=== PATIENT | male | born 1975 | race African-American/Black ===

== ENCOUNTER 2019-04-11 10:46 | Inpatient (IN) | payer MEDICARE ==
[~2019-04-11] VITALS: Ht 165.1 cm; Wt 55.9 kg
[2019-04-11 10:52] VITALS: BP 110/70
--- NOTE | 2019-04-11 10:55 | NUR ---
ED Nurse Note: Patient arrived to ED from SNF by EMS. Per EMS, the staff at the facility stated that the pt had a fever so they called so that he could be taken to the ED. On arrival, patient was on 4L NC, AxO x 0, non-verbal. Patient taken off of NC, O2 sat 94% on room air. Patient will make eye contact if his name is called. Rectal temp 101.3, swabs obtained, skin is intact. Patient has a g-tube. Verbal order from Dr. Dean to place Garcia catheter. Patient suctioned by RT. Blood, swabs, urine, and sputum sent to lab. Patient on playground monitor, VSS, bed in lowest position.
[2019-04-11 11:12] LABS: EOSINOPHILS % (AUTO) 2.6 % (0.0-3.0); HEMATOCRIT 37.9 % (42.0-52.0); HEMOGLOBIN 13.4 G/DL (14.2-18.0); LYMPHOCYTES % (AUTO) 7.2 % (20.0-45.0); MEAN CORPUSCULAR VOLUME 82 FL (80-99); MONOCYTES % (AUTO) 6.4 % (1.0-10.0); NEUTROPHILS % (AUTO) 82.8 % (45.0-75.0); PLATELET COUNT 323 K/UL (150-450); RED BLOOD COUNT 4.61 M/UL (4.70-6.10); WHITE BLOOD COUNT 16.5 K/UL (4.8-10.8)
[2019-04-11 11:29] LABS: ANION GAP 7 mmol/L (5-15); BLOOD UREA NITROGEN 14 mg/dL (7-18); CARBON DIOXIDE 30 MMOL/L (21-32); CHLORIDE 105 MMOL/L (98-107); CREATININE 0.7 MG/DL (0.55-1.30); POTASSIUM 3.8 MMOL/L (3.5-5.1); SODIUM 142 MMOL/L (136-145)
[2019-04-11 11:41] LABS: ALANINE AMINOTRANSFERASE 25 U/L (12-78); ALBUMIN 2.7 G/DL (3.4-5.0); ALBUMIN/GLOBULIN RATIO 0.6 (1.0-2.7); ALKALINE PHOSPHATASE 63 U/L (46-116); ASPARTATE AMINO TRANSFERASE 20 U/L (15-37); CKMB 0.9 NG/ML (0.0-3.6); CREATINE KINASE 93 U/L (26-308); PHOSPHORUS 3.7 MG/DL (2.5-4.9)
[2019-04-11 11:41] LABS: BILIRUBIN, URINE NEGATIVE (NEGATIVE); GLUCOSE, URINE (UA) NEGATIVE (NEGATIVE); KETONES,URINE NEGATIVE (NEGATIVE); LEUKOCYTE ESTERASE ,URINE NEGATIVE (NEGATIVE); NITRITE,URINE NEGATIVE (NEGATIVE); PH,URINE 7 (4.5-8.0); PROTEIN,URINE 2+ (NEGATIVE); UROBILINOGEN,URINE 1 MG/DL (0.0-1.0)
[2019-04-11 11:42] LABS: APPEARANCE,URINE CLEAR; COLOR,URINE YELLOW
[2019-04-11] MEDS ORDERED: PROTONIX40 M2 GT (12:02)
[2019-04-11] MEDS ORDERED: MULTI-DELYN237 ML GT (12:02)
[2019-04-11] MEDS ORDERED: MYSOLINE50 M1 GT (12:02)
[2019-04-11] MEDS ORDERED: DONEPEZIL HCL10 M2 GT (12:02)
[2019-04-11] MEDS ORDERED: PROBIOTIC1 EAC5 GT (12:02)
[2019-04-11] MEDS ORDERED: VERAPAMIL HCL GT (12:02)
[2019-04-11] MEDS ORDERED: ZOFRAN4 M1 GT (12:02)
[2019-04-11] MEDS ORDERED: cefTRIAXone 1 GM in NS 55 ML IVPB ONE (12:45)
[2019-04-11] MEDS ORDERED: Azithromycin 500 MG in NS 275 ML IV ONE (12:45)
--- NOTE | 2019-04-11 13:03 | Emergency Room Report ---
History of Present Illness General Chief Complaint: General Complaint Source: Medical Record, EMS Present Illness HPI Patient presents to the emergency room with paramedics Patient was found to be febrile At the nursing facility also has cough and shortness of breath Patient himself has significant underlying dementia History of present illness is limited from him And this does limit the history of present illness in general There was no reports of vomiting or diarrhea patient was given Tylenol prior to arrival Allergies: Coded Allergies: No Known Allergies (Unverified , 04/11/19) Patient History Past Medical History: see triage record Reviewed Nursing Documentation: PMH: Agreed; PSxH: Agreed Nursing Documentation-PMH Hx Hypertension: Yes Hx Neurological Problems: Yes - epilepsy, alzheimer's, dementia Hx Cerebrovascular Accident: Yes - cerebellar ataxia Review of Systems All Other Systems: negative except mentioned in HPI Physical Exam Vital Signs Date Time Temp Pulse Resp B/P (MAP) Pulse Ox O2 Delivery O2 Flow Rate FiO2 04/11/19 10:47 101.1 112 24 110/70 (83) 95 Nasal Cannula 4.0 Sp02 EP Interpretation: reviewed, normal General Appearance: mild distress - Tachypneic Head: normocephalic, atraumatic Eyes: bilateral eye PERRL, bilateral eye EOMI ENT: dry mucus membranes Neck: supple Respiratory: crackles - Bilaterally with fine wheezing Cardiovascular #1: regular rate, rhythm, no edema Gastrointestinal: non tender, soft - Feeding tube in place Genitourinary: no CVA tenderness Musculoskeletal: other - Moves both upper extremities without focal deficit Neurologic: other - Responsive to verbal and physical stimuli Skin: no rash Lymphatic: no adenopathy Medical Decision Making Diagnostic Impression: Primary Impression: Sepsis Additional Impression: Pneumonia ER Course Patient is a fairly complex patient with multiple differential to consideration including but not limited to cardiac cardiopulmonary and vascular emergencies Infectious process and sepsis also entertained Patient has respiratory toilet performed Patient's x-ray does reveal evidence of infiltrate further antibiotics and hydration performed and patient admitted for further care Labs Test 04/11/19 10:50 04/11/19 11:15 White Blood Count 16.5 K/UL (4.8-10.8) Red Blood Count 4.61 M/UL (4.70-6.10) Hemoglobin 13.4 G/DL (14.2-18.0) Hematocrit 37.9 % (42.0-52.0) Mean Corpuscular Volume 82 FL (80-99) Mean Corpuscular Hemoglobin 29.1 PG (27.0-31.0) Mean Corpuscular Hemoglobin Concent 35.3 G/DL (32.0-36.0) Red Cell Distribution Width 17.0 % (11.6-14.8) Platelet Count 323 K/UL (150-450) Mean Platelet Volume 6.1 FL (6.5-10.1) Neutrophils (%) (Auto) 82.8 % (45.0-75.0) Lymphocytes (%) (Auto) 7.2 % (20.0-45.0) Monocytes (%) (Auto) 6.4 % (1.0-10.0) Eosinophils (%) (Auto) 2.6 % (0.0-3.0) Basophils (%) (Auto) 1.0 % (0.0-2.0) Sodium Level 142 MMOL/L (136-145) Potassium Level 3.8 MMOL/L (3.5-5.1) Chloride Level 105 MMOL/L (98-107) Carbon Dioxide Level 30 MMOL/L (21-32) Anion Gap 7 mmol/L (5-15) Blood Urea Nitrogen 14 mg/dL (7-18) Creatinine 0.7 MG/DL (0.55-1.30) Estimat Glomerular Filtration Rate > 60 mL/min (>60) Glucose Level 101 MG/DL (74-106) Lactic Acid Level 0.70 mmol/L (0.4-2.0) Calcium Level 9.0 MG/DL (8.5-10.1) Phosphorus Level 3.7 MG/DL (2.5-4.9) Magnesium Level 1.8 MG/DL (1.8-2.4) Total Bilirubin 1.0 MG/DL (0.2-1.0) Aspartate Amino Transf (AST/SGOT) 20 U/L (15-37) Alanine Aminotransferase (ALT/SGPT) 25 U/L (12-78) Alkaline Phosphatase 63 U/L (46-116) Total Creatine Kinase 93 U/L (26-308) Creatine Kinase MB 0.9 NG/ML (0.0-3.6) Creatine Kinase MB Relative Index 0.9 Troponin I 0.000 ng/mL (0.000-0.056) Pro-B-Type Natriuretic Peptide 46 pg/mL (0-125) Total Protein 7.6 G/DL (6.4-8.2) Albumin 2.7 G/DL (3.4-5.0) Globulin 4.9 g/dL Albumin/Globulin Ratio 0.6 (1.0-2.7) Lipase 103 U/L (73-393) Urine Color Yellow Urine Appearance Clear Urine pH 7 (4.5-8.0) Urine Specific [place] 1.005 (1.005-1.035) Urine Protein 2+ (NEGATIVE) Urine Glucose (UA) Negative (NEGATIVE) Urine Ketones Negative (NEGATIVE) Urine Blood 3+ (NEGATIVE) Urine Nitrite Negative (NEGATIVE) Urine Bilirubin Negative (NEGATIVE) Urine Urobilinogen 1 MG/DL (0.0-1.0) Urine Leukocyte Esterase Negative (NEGATIVE) Urine RBC 10-15 /HPF (0 - 0) Urine WBC 0-2 /HPF (0 - 0) Urine Squamous Epithelial Cells None /LPF (NONE/OCC) Urine Bacteria None /HPF (NONE) Rhythm Strip Diag. Results EP Interpretation: yes Rate: 78 Rhythm: NSR, no PVC's, no ectopy Chest X-Ray Diagnostic Results Chest X-Ray Diagnostic Results : Chest X-Ray Ordered: Yes # of Views/Limited/Complete: 1 View Indication: Shortness of Breath EP Interpretation: Yes Interpretation: no effusion, no pneumothorax, other - Left lower lobe infiltrate Impression: Other - Left lower lobe infiltrate Electronically Signed by: Kenn Dean DO Last Vital Signs Date Time Temp Pulse Resp B/P (MAP) Pulse Ox O2 Delivery O2 Flow Rate FiO2 04/11/19 10:52 101.1 101 22 110/70 95 Room Air 04/11/19 10:47 4.0 Status: improved Disposition: ADMITTED INPATIENT Condition: Serious Referrals: Marito Ortega DO (PCP) Kenn Dean DO Apr 11, 2019 13:03
[2019-04-11 13:10] VITALS: BP 108/74
--- NOTE | 2019-04-11 13:40 | NUR ---
ED Nurse Note: Report given to Christina WITT on Telemetry.
--- NOTE | 2019-04-11 13:46 | Diagnostic Imaging Report ---
Indication: Cough, chest pain Technique: One view of the chest Comparison: none Findings: There is some atelectasis at the left lung base. There may be some consolidation as well. There is central bronchial wall thickening. Lungs and pleural spaces are otherwise clear. Heart size is normal. Impression: Left basilar atelectasis and possible consolidation
--- NOTE | 2019-04-11 14:00 | NUR ---
NURSE NOTES: PT,admitted to tele. Tele monitor was attached to pt. Pt came in, in stable condition tachycardic. V/s bp 131/94, O2 95 , R20 T98.0 HR 115. pt has 2 Iv's L AC is patent R AC is difficult to flush. Pt has a Gtube. Pt has a key 16 fringe per doctor's order. Pt skin is intact but pt is very skinny so all bony areas on his body were padded for protection. Belonging are at bedside. Will continue to monitor pt. Call light within reach and bed is locked and in lowest position. Side rails are padded.
--- NOTE | 2019-04-11 16:23 | Consultation ---
History of Present Illness General Date patient seen: Apr 11, 2019 Chief Complaint: General Complaint Present Illness HPI 43 y/o M with hx of HTN, dysphagia s/p GT, cerebellar ataxia, seizure disorder, Alzheimer's dementia, SNF resident presented to ED on 04/11 with fever. In ED T 101.3. Allergies: Coded Allergies: No Known Allergies (Unverified , 04/11/19) Medication History Scheduled Donepezil Hcl* (Donepezil Hcl*), 10 MG GT DAILY, (Reported) Lactobacillus Combo No.11 (Probiotic), 1 EACH GT DAILY, (Reported) Multivitamin Liquid* (Multi-Delyn*), 5 ML GT DAILY, (Reported) Pantoprazole Sodium (Protonix), 40 MG GT DAILY, (Reported) Primidone (Mysoline), 100 MG GT QHS, (Reported) Verapamil Hcl (Verapamil Hcl), 20 MG GT TID, (Reported) Scheduled PRN Ondansetron (Zofran), 4 MG GT Q6H PRN for Nausea & Vomiting, (Reported) Patient History Healthcare decision maker Resuscitation status Advanced Directive on File Patient History Narrative Pmhx: as above Fhx: non contributory Shx: reviewed Review of Systems ROS Narrative unable to obtain Physical Exam Last 24 Hour Vital Signs Date Time Temp Pulse Resp B/P (MAP) Pulse Ox O2 Delivery O2 Flow Rate FiO2 04/11/19 13:10 101.1 98 21 108/74 96 Room Air 04/11/19 10:52 101.3 101 22 110/70 95 Room Air 04/11/19 10:52 101 22 Room Air 04/11/19 10:47 101.1 112 24 110/70 (83) 95 Nasal Cannula 4.0 Laboratory Tests Test 04/11/19 10:50 04/11/19 11:15 White Blood Count 16.5 K/UL (4.8-10.8) H Red Blood Count 4.61 M/UL (4.70-6.10) L Hemoglobin 13.4 G/DL (14.2-18.0) L Hematocrit 37.9 % (42.0-52.0) L Mean Corpuscular Volume 82 FL (80-99) Mean Corpuscular Hemoglobin 29.1 PG (27.0-31.0) Mean Corpuscular Hemoglobin Concent 35.3 G/DL (32.0-36.0) Red Cell Distribution Width 17.0 % (11.6-14.8) H Platelet Count 323 K/UL (150-450) Mean Platelet Volume 6.1 FL (6.5-10.1) L Neutrophils (%) (Auto) 82.8 % (45.0-75.0) H Lymphocytes (%) (Auto) 7.2 % (20.0-45.0) L Monocytes (%) (Auto) 6.4 % (1.0-10.0) Eosinophils (%) (Auto) 2.6 % (0.0-3.0) Basophils (%) (Auto) 1.0 % (0.0-2.0) Sodium Level 142 MMOL/L (136-145) Potassium Level 3.8 MMOL/L (3.5-5.1) Chloride Level 105 MMOL/L (98-107) Carbon Dioxide Level 30 MMOL/L (21-32) Anion Gap 7 mmol/L (5-15) Blood Urea Nitrogen 14 mg/dL (7-18) Creatinine 0.7 MG/DL (0.55-1.30) Estimat Glomerular Filtration Rate > 60 mL/min (>60) Glucose Level 101 MG/DL (74-106) Lactic Acid Level 0.70 mmol/L (0.4-2.0) Calcium Level 9.0 MG/DL (8.5-10.1) Phosphorus Level 3.7 MG/DL (2.5-4.9) Magnesium Level 1.8 MG/DL (1.8-2.4) Total Bilirubin 1.0 MG/DL (0.2-1.0) Aspartate Amino Transf (AST/SGOT) 20 U/L (15-37) Alanine Aminotransferase (ALT/SGPT) 25 U/L (12-78) Alkaline Phosphatase 63 U/L (46-116) Total Creatine Kinase 93 U/L (26-308) Creatine Kinase MB 0.9 NG/ML (0.0-3.6) Creatine Kinase MB Relative Index 0.9 Troponin I 0.000 ng/mL (0.000-0.056) Pro-B-Type Natriuretic Peptide 46 pg/mL (0-125) Total Protein 7.6 G/DL (6.4-8.2) Albumin 2.7 G/DL (3.4-5.0) L Globulin 4.9 g/dL Albumin/Globulin Ratio 0.6 (1.0-2.7) L Lipase 103 U/L (73-393) Urine Color Yellow Urine Appearance Clear Urine pH 7 (4.5-8.0) Urine Specific [place] 1.005 (1.005-1.035) Urine Protein 2+ (NEGATIVE) H Urine Glucose (UA) Negative (NEGATIVE) Urine Ketones Negative (NEGATIVE) Urine Blood 3+ (NEGATIVE) H Urine Nitrite Negative (NEGATIVE) Urine Bilirubin Negative (NEGATIVE) Urine Urobilinogen 1 MG/DL (0.0-1.0) H Urine Leukocyte Esterase Negative (NEGATIVE) Urine RBC 10-15 /HPF (0 - 0) H Urine WBC 0-2 /HPF (0 - 0) Urine Squamous Epithelial Cells None /LPF (NONE/OCC) Urine Bacteria None /HPF (NONE) Microbiology Date/Time Source Procedure Growth Status 04/11/19 10:50 Rectum Received Height (Feet): 5 Height (Inches): 7.00 Weight (Pounds): 140 Assessment/Plan Assessment/Plan: Abx: Ceftriaxone x1 04/11 Azithromycin x1 04/11 Assessment: Sepsis PNA -CXR: Left basilar atelectasis and possible consolidation -u/a neg Fever Leukocytosis HTN dysphagia s/p GT cerebellar ataxia seizure disorder Alzheimer's dementia SNF resident Plan: -Start empiric IV Vancomycin and Cefepime #1 -Continue Azithromycin #1 -f/u cx -Monitor CBC/CMP, temperatures -GT care -aspiration precautions Thank you for consulting [facility]. Will continue to follow along with you. Discussed with EDUAR. Shirley Cadena M.D. Apr 11, 2019 16:23
--- NOTE | 2019-04-11 17:52 | NUR ---
NURSE NOTES: notified Dr. Sauer pt is tachycardic 130's 145's. Doctor ordered Ns 500m bolus and echocardiogram in the morning.
[2019-04-11] MEDS: Cefepime HCl 1 GM in D5W 55 ML IVPB SCH (18:35)
--- NOTE | 2019-04-11 19:20 | NUR ---
NURSE NOTES: Received report form EDUAR Vasquez. Patient is awake, nonverbal, responsive to verbal and tactile stimuli. No signs of acute distress noted. Checked IV site and flushed. No erythema, bleeding, or infiltration noted. G tube with no residual volume. Padded siderails for seizure precaution. Bed at lowest position, brakes on, siderailsx3. Call light within reach. Will continue to monitor. Addendum: 04/12/19 at 0333 by Helen Garcia RN On key catheter draining well to gravity.
[2019-04-11 20:00] VITALS: BP 136/96
[2019-04-11] MEDS ORDERED: Vancomycin 1.25gm/D5W 275ml IVPB SCH ×2 (20:00)
--- NOTE | 2019-04-11 20:30 | NUR ---
NURSE NOTES: Patient is SVT on the monitor, 150bpm. Vital signs taken T=99.1, PM=860uci, RR=22, JB=449/96, O2 sat=95%. No signs of acute distress. No seizures noted. Per Dr. Sauer, no new orders at this time.
[2019-04-11] MEDS: Vancomycin 1.25gm/NS Premix 275 ML IVPB SCH (20:34)
--- NOTE | 2019-04-11 20:36 | NUR ---
HAND-OFF: Report given to Helen/EDUAR, pt in stable condition, SR tachy.
--- NOTE | 2019-04-11 21:30 | NUR ---
NURSE NOTES: Paged Dr. Ortega for patient's tube feeding. Awaiting for callback.
--- NOTE | 2019-04-11 21:30 | NUR ---
NURSE NOTES: Patient's HR 154bpm, SVT on the monitor. Spoke with Dr. Sauer regarding patient's condition, with new order Verapamil 20mg Q8 hour. Noted and carried out.
--- NOTE | 2019-04-11 21:31 | History and Physical Report ---
DATE OF ADMISSION: 04/11/2019 CONSULTANTS: 1. Carlos Sauer M.D. 2. Lonnie Dinero M.D. 3. Osbaldo Bird M.D. 4. Arley Wick M.D. CHIEF COMPLAINT: Confusion, shortness of breath, weakness, pneumonia, and sepsis. BRIEF HISTORY: This is a 43-year-old male from [facility], presented with the above-mentioned diagnoses, admitted to telemetry for further care. Currently, confused in bed, not talking much. REVIEW OF SYSTEMS: Unavailable. PAST MEDICAL HISTORY: Includes ataxia, Alzheimer's, sickle cell, seizure, weakness, anemia, and cachexia. PAST SURGICAL HISTORY: G-tube. MEDICATIONS: Include ceftriaxone, azithromycin, and Tylenol. ALLERGIES: Denies. SOCIAL HISTORY: Unable to obtain secondary to the patient's condition. OBJECTIVE: GENERAL: Calm in bed, lethargic, confused, and nonverbal. VITAL SIGNS: Temperature 101, pulse 98, respirations 21, and blood pressure 108/74. CARDIOVASCULAR: No murmurs. LUNGS: Poor air exchange. ABDOMEN: Bowel sounds distant. EXTREMITIES: No cyanosis, clubbing, or edema. NEUROLOGIC: The patient is flaccid in bed, not following directions. LABORATORY AND DIAGNOSTIC DATA: Labs at this time show white count 16, H and H are 13 and 37, and platelets 323,000. BMP is normal except for albumin 2.7. Urinalysis, 3+ blood and 2+ protein. ASSESSMENT: 1. Pneumonia. 2. Sepsis. 3. Altered mental status. 4. Ataxia. 5. Alzheimer's. 6. Sickle cell. 7. Seizure. 8. Weakness. 9. Anemia. 10. Cachexia. PLAN: 1. O2 and pulmonary treatment. 2. Antibiotics per Infectious Disease. 3. Resume home medications. 4. IV fluids. 5. PT and dietary evaluation. 6. We will continue to follow this patient. 7. CBC and BMP in the morning. Marito Ortega D.O. DR: ELIZABETH JOB#: [id number] CC:
--- NOTE | 2019-04-11 21:50 | NUR ---
NURSE NOTES: Per Dr. Ortega, to continue G tube feeding from senior care. Noted and carried out.
[2019-04-11] MEDS ORDERED: Verapamil 80mg tab GT SCH (22:00)
--- NOTE | 2019-04-11 22:00 | NUR ---
NURSE NOTES: G tube feeding on Jevity 1.2 @ 45mls/hr and tolerating well.
--- NOTE | 2019-04-11 22:20 | NUR ---
NURSE NOTES: 15 mins after giving Verapamil 20mg, HR went down to [address] Sauer made aware.
[2019-04-11] MEDS: Acetaminophen 650mg/20.3ml GT PRN (23:25)
[2019-04-12] VITALS (7 sets, daily range): BP systolic 117–145; BP diastolic 77–98
[2019-04-12] MEDS: Cefepime HCl 1 GM in D5W 55 ML IVPB SCH ×2 (05:25→18:18)
[2019-04-12] MEDS: Acetaminophen 650mg/20.3ml GT PRN ×2 (05:37→20:20)
[2019-04-12] MEDS ORDERED: Verapamil 80mg tab GT SCH (06:00)
[2019-04-12 07:02] LABS: ANION GAP 7 mmol/L (5-15); BLOOD UREA NITROGEN 14 mg/dL (7-18); CALCIUM 9.1 MG/DL (8.5-10.1); CARBON DIOXIDE 28 MMOL/L (21-32); CHLORIDE 113 MMOL/L (98-107); CREATININE 0.7 MG/DL (0.55-1.30); POTASSIUM 3.6 MMOL/L (3.5-5.1); SODIUM 148 MMOL/L (136-145)
--- NOTE | 2019-04-12 07:20 | NUR ---
HAND-OFF: Report given to EDUAR Brito. Plan of care endorsed.
--- NOTE | 2019-04-12 07:20 | NUR ---
NURSE NOTES: Report received from EDUAR Cervantes. Pt. in RA. Non verbal. Spontaneous eye opening. Tube feeding site intact. Tube feeding running at @45cc/hr. IV flushed, SL. Patient noticed diaphoretic. Gown changed and bedsheet removed. Positioned for comfort. Bed on lowest position, side rails upx2, brakes engaged. Call light within easy reach.
[2019-04-12 07:50] LABS: BASOPHILS % (AUTO) 1.5 % (0.0-2.0); EOSINOPHILS % (AUTO) 0.2 % (0.0-3.0); HEMATOCRIT 35.7 % (42.0-52.0); HEMOGLOBIN 13.3 G/DL (14.2-18.0); LYMPHOCYTES % (AUTO) 10.7 % (20.0-45.0); MEAN CORPUSCULAR VOLUME 81 FL (80-99); MONOCYTES % (AUTO) 6.7 % (1.0-10.0); PLATELET COUNT 284 K/UL (150-450); RED BLOOD COUNT 4.43 M/UL (4.70-6.10); RED CELL DISTRIBUTION WIDTH 15.1 % (11.6-14.8); WHITE BLOOD COUNT 14.1 K/UL (4.8-10.8)
[2019-04-12] MEDS ORDERED: dilTIAZem HCl 25mg/5ml Inj IVP PRN (08:00)
[2019-04-12] MEDS: Vancomycin 1.25gm/NS Premix 275 ML IVPB SCH ×2 (08:48→20:04)
[2019-04-12] MEDS: Azithromycin 250mg tab ORAL SCH (08:48)
[2019-04-12] MEDS: Donepezil 10mg tab GT SCH (08:48)
[2019-04-12] MEDS: Lactobacillus-GG tablet GT SCH (08:48)
[2019-04-12] MEDS: Multivitamins W/Minerals 15 ML UDC GT SCH (08:49)
--- NOTE | 2019-04-12 10:16 | General Progress Note ---
Assessment/Plan Problem List: (1) Pneumonia ICD Codes: J18.9 - Pneumonia, unspecified organism SNOMED: 587481137 (2) Confusion ICD Codes: R41.0 - Disorientation, unspecified SNOMED: 592943227 (3) Sickle cell anemia ICD Codes: D57.1 - Sickle-cell disease without crisis SNOMED: 669723542 (4) Weak ICD Codes: R53.1 - Weakness SNOMED: 73771731 (5) Cachexia ICD Codes: R64 - Cachexia SNOMED: 557440580 (6) Sepsis ICD Codes: A41.9 - Sepsis, unspecified organism SNOMED: 88758139 Status: unchanged Assessment/Plan: pt diet abx psyc neuro eval cbc bmp am Subjective Constitutional: Reports: weakness Allergies: Coded Allergies: No Known Allergies (Unverified , 04/11/19) All Systems: reviewed and negative except above Subjective sleepy calm Objective Last 24 Hour Vital Signs Date Time Temp Pulse Resp B/P (MAP) Pulse Ox O2 Delivery O2 Flow Rate FiO2 04/12/19 08:00 125 04/12/19 08:00 98.8 118 21 139/81 (100) 96 04/12/19 06:07 97.9 04/12/19 05:37 109 145/98 04/12/19 04:00 97.9 117 22 145/98 (114) 98 04/12/19 04:00 109 04/12/19 00:00 98.2 136 23 125/89 (101) 93 04/12/19 00:00 130 04/11/19 21:50 138 136/96 04/11/19 21:00 Room Air 04/11/19 20:00 99.1 138 22 136/96 (109) 93 04/11/19 19:44 Room Air 04/11/19 16:00 126 04/11/19 13:50 101.2 99 19 124/73 94 04/11/19 13:10 101.1 98 21 108/74 96 Room Air 04/11/19 10:52 101.3 101 22 110/70 95 Room Air 04/11/19 10:52 101 22 Room Air 04/11/19 10:47 101.1 112 24 110/70 (83) 95 Nasal Cannula 4.0 Intake and Output 04/11/19 04/12/19 18:59 06:59 Intake Total 0 ml 446.10 ml Output Total 700 ml 1320 ml Balance -700 ml -873.90 ml Intake Oral 0 ml IV Total 446.10 ml Output Urine Total 700 ml 1320 ml # Bowel Movements 1 Laboratory Tests 04/11/19 10:50: White Blood Count 16.5H, Red Blood Count 4.61L, Hemoglobin 13.4L, Hematocrit 37.9L, Mean Corpuscular Volume 82, Mean Corpuscular Hemoglobin 29.1, Mean Corpuscular Hemoglobin Concent 35.3, Red Cell Distribution Width 17.0H, Platelet Count 323, Mean Platelet Volume 6.1L, Neutrophils (%) (Auto) 82.8H, Lymphocytes (%) (Auto) 7.2L, Monocytes (%) (Auto) 6.4, Eosinophils (%) (Auto) 2.6, Basophils (%) (Auto) 1.0, Sodium Level 142, Potassium Level 3.8, Chloride Level 105, Carbon Dioxide Level 30, Anion Gap 7, Blood Urea Nitrogen 14, Creatinine 0.7, Estimat Glomerular Filtration Rate > 60, Glucose Level 101, Lactic Acid Level 0.70, Calcium Level 9.0, Phosphorus Level 3.7, Magnesium Level 1.8, Total Bilirubin 1.0, Aspartate Amino Transf (AST/SGOT) 20, Alanine Aminotransferase (ALT/SGPT) 25, Alkaline Phosphatase 63, Total Creatine Kinase 93, Creatine Kinase MB 0.9, Creatine Kinase MB Relative Index 0.9, Troponin I 0.000, Pro-B-Type Natriuretic Peptide 46, Total Protein 7.6, Albumin 2.7L, Globulin 4.9, Albumin/Globulin Ratio 0.6L, Lipase 103 04/11/19 11:15: Urine Color Yellow, Urine Appearance Clear, Urine pH 7, Urine Specific [place] 1.005, Urine Protein 2+H, Urine Glucose (UA) Negative, Urine Ketones Negative, Urine Blood 3+H, Urine Nitrite Negative, Urine Bilirubin Negative, Urine Urobilinogen 1H, Urine Leukocyte Esterase Negative, Urine RBC 10-15H, Urine WBC 0-2, Urine Squamous Epithelial Cells None, Urine Bacteria None 04/12/19 05:56: White Blood Count 14.1H, Red Blood Count 4.43L, Hemoglobin 13.3L, Hematocrit 35.7L, Mean Corpuscular Volume 81, Mean Corpuscular Hemoglobin 29.9, Mean Corpuscular Hemoglobin Concent 37.1H, Red Cell Distribution Width 15.1H, Platelet Count 284, Mean Platelet Volume 6.3L, Neutrophils (%) (Auto) 81.0H, Lymphocytes (%) (Auto) 10.7L, Monocytes (%) (Auto) 6.7, Eosinophils (%) (Auto) 0.2, Basophils (%) (Auto) 1.5, Sodium Level 148H, Potassium Level 3.6, Chloride Level 113H, Carbon Dioxide Level 28, Anion Gap 7, Blood Urea Nitrogen 14, Creatinine 0.7, Estimat Glomerular Filtration Rate > 60, Glucose Level 128H, Calcium Level 9.1 Height (Feet): 5 Height (Inches): 7.00 Weight (Pounds): 103 General Appearance: lethargic EENT: normal ENT inspection Neck: normal alignment Cardiovascular: normal peripheral pulses, normal rate, regular rhythm Respiratory/Chest: chest wall non-tender, lungs clear, normal breath sounds Abdomen: normal bowel sounds, non tender, soft Extremities: normal inspection Edema: no edema noted Arm (L), no edema noted Arm (R), no edema noted Leg (L), no edema noted Leg (R), no edema noted Pedal (L), no edema noted Pedal (R), no edema noted Generalized Neurologic: motor weakness Skin: normal pigmentation, warm/dry Marito Ortega DO Apr 12, 2019 10:16
--- NOTE | 2019-04-12 10:20 | NUR ---
NURSE NOTES: Communicated with Dr. Sauer regarding pain medication. No orders at this time.
--- NOTE | 2019-04-12 10:30 | NUR ---
NURSE NOTES: Repositioned pt. for comfort. Noticed small skin tear on the buttock under the applied barrier and Optifoam dressing. Reinforced dressing, applied skin barrier and Optifoam.
--- NOTE | 2019-04-12 11:14 | Infectious Diseases Prog Note ---
Assessment/Plan Assessment/Plan Assessment: Sepsis PNA -CXR: Left basilar atelectasis and possible consolidation -sp cx p -influenza sc neg -u/a neg Fever; improving Leukocytosis; improving HTN dysphagia s/p GT cerebellar ataxia seizure disorder Alzheimer's dementia SNF resident Plan: -Cotninue empiric IV Vancomycin and Cefepime #2 -Continue Azithromycin #2 -04/11 SP Ceftriaxone x1 -f/u cx -Monitor CBC/CMP, temperatures -GT care -aspiration precautions Thank you for consulting [facility]. Will continue to follow along with you. Discussed with RN. Subjective Allergies: Coded Allergies: No Known Allergies (Unverified , 04/11/19) Subjective afebrile in ~24hrs wbc improving influenza neg Objective Vital Signs Last 24 Hour Vital Signs Date Time Temp Pulse Resp B/P (MAP) Pulse Ox O2 Delivery O2 Flow Rate FiO2 04/12/19 09:00 Room Air 04/12/19 08:00 125 04/12/19 08:00 98.8 118 21 139/81 (100) 96 04/12/19 06:07 97.9 04/12/19 05:37 109 145/98 04/12/19 04:00 97.9 117 22 145/98 (114) 98 04/12/19 04:00 109 04/12/19 00:00 98.2 136 23 125/89 (101) 93 04/12/19 00:00 130 04/11/19 21:50 138 136/96 04/11/19 21:00 Room Air 04/11/19 20:00 99.1 138 22 136/96 (109) 93 04/11/19 19:44 Room Air 04/11/19 16:00 126 04/11/19 13:50 101.2 99 19 124/73 94 04/11/19 13:10 101.1 98 21 108/74 96 Room Air Height (Feet): 5 Height (Inches): 7.00 Weight (Pounds): 103 Objective GENERAL: Calm in bed, lethargic, confused, and nonverbal. VITAL SIGNS: Temperature 101, pulse 98, respirations 21, and blood pressure 108/74. CARDIOVASCULAR: No murmurs. LUNGS: Poor air exchange. ABDOMEN: Bowel sounds distant. EXTREMITIES: No cyanosis, clubbing, or edema. NEUROLOGIC: The patient is flaccid in bed, not following directions. Microbiology Date/Time Source Procedure Growth Status 04/11/19 04:04 Nasopharynx - Final Complete 04/11/19 04:04 Nasopharynx - Final Complete 04/11/19 10:50 Rectum Received Laboratory Tests Test 04/11/19 11:15 04/12/19 05:56 Urine Color Yellow Urine Appearance Clear Urine pH 7 (4.5-8.0) Urine Specific [place] 1.005 (1.005-1.035) Urine Protein 2+ (NEGATIVE) H Urine Glucose (UA) Negative (NEGATIVE) Urine Ketones Negative (NEGATIVE) Urine Blood 3+ (NEGATIVE) H Urine Nitrite Negative (NEGATIVE) Urine Bilirubin Negative (NEGATIVE) Urine Urobilinogen 1 MG/DL (0.0-1.0) H Urine Leukocyte Esterase Negative (NEGATIVE) Urine RBC 10-15 /HPF (0 - 0) H Urine WBC 0-2 /HPF (0 - 0) Urine Squamous Epithelial Cells None /LPF (NONE/OCC) Urine Bacteria None /HPF (NONE) White Blood Count 14.1 K/UL (4.8-10.8) H Red Blood Count 4.43 M/UL (4.70-6.10) L Hemoglobin 13.3 G/DL (14.2-18.0) L Hematocrit 35.7 % (42.0-52.0) L Mean Corpuscular Volume 81 FL (80-99) Mean Corpuscular Hemoglobin 29.9 PG (27.0-31.0) Mean Corpuscular Hemoglobin Concent 37.1 G/DL (32.0-36.0) H Red Cell Distribution Width 15.1 % (11.6-14.8) H Platelet Count 284 K/UL (150-450) Mean Platelet Volume 6.3 FL (6.5-10.1) L Neutrophils (%) (Auto) 81.0 % (45.0-75.0) H Lymphocytes (%) (Auto) 10.7 % (20.0-45.0) L Monocytes (%) (Auto) 6.7 % (1.0-10.0) Eosinophils (%) (Auto) 0.2 % (0.0-3.0) Basophils (%) (Auto) 1.5 % (0.0-2.0) Sodium Level 148 MMOL/L (136-145) H Potassium Level 3.6 MMOL/L (3.5-5.1) Chloride Level 113 MMOL/L (98-107) H Carbon Dioxide Level 28 MMOL/L (21-32) Anion Gap 7 mmol/L (5-15) Blood Urea Nitrogen 14 mg/dL (7-18) Creatinine 0.7 MG/DL (0.55-1.30) Estimat Glomerular Filtration Rate > 60 mL/min (>60) Glucose Level 128 MG/DL (74-106) H Calcium Level 9.1 MG/DL (8.5-10.1) Current Medications Medications (Trade) Dose Ordered Sig/Kory Route PRN Reason Start Time Stop Time Status Last Admin Dose Admin Acetaminophen (Tylenol) 650 mg Q6H PRN GT Mild Pain/Temp > 100.5 04/11/19 23:00 05/11/19 22:59 04/12/19 05:37 Azithromycin (Zithromax) 500 mg DAILY ORAL 04/12/19 09:00 04/19/19 08:59 04/12/19 08:48 Cefepime HCl 1 gm/ Dextrose 55 ml @ 110 mls/hr Q12H IVPB 04/11/19 18:00 04/18/19 17:59 04/12/19 05:25 Diltiazem HCl (Cardizem) 10 mg Q2H PRN IVP PULSE 04/12/19 08:00 05/12/19 07:59 Donepezil HCl (Aricept) 10 mg DAILY GT 04/12/19 09:00 05/12/19 08:59 04/12/19 08:48 Heparin Sodium (Porcine) (Heparin 5000 units/ml) 5,000 units EVERY 12 HOURS SUBQ 04/12/19 11:00 05/12/19 10:59 Lactobacillus Acidophilus (Culturelle) 1 tab DAILY GT 04/12/19 09:00 05/12/19 08:59 04/12/19 08:48 Lansoprazole (Prevacid) 30 mg DAILY GT 04/12/19 09:00 05/12/19 08:59 04/12/19 08:48 Multivitamins (Multivitamins W/ Minerals 15ml Liquid) 15 ml DAILY GT 04/12/19 09:00 05/12/19 08:59 04/12/19 08:49 Ondansetron HCl (Zofran) 4 mg Q6H PRN GT Nausea & Vomiting 04/12/19 01:45 05/12/19 01:44 Primidone (Mysoline) 100 mg QHS GT 04/12/19 21:00 05/12/19 20:59 Vancomycin HCl (Vanco rx to dose) 1 ea DAILY PRN MISC Per rx protocol 04/11/19 16:30 05/11/19 16:29 Vancomycin/Sodium Chloride 275 ml @ 183.33 mls/ hr Q12HR@0800,2000 IVPB 04/11/19 20:30 04/16/19 20:29 04/12/19 08:48 Verapamil HCl (Calan) 20 mg EVERY 8 HOURS GT 04/12/19 06:00 05/11/19 21:59 04/12/19 05:37 Shirley Cadena M.D. Apr 12, 2019 11:14
--- NOTE | 2019-04-12 11:24 | Consultation ---
History of Present Illness General Date patient seen: Apr 12, 2019 Chief Complaint: General Complaint Present Illness HPI 43 year old male with hx of hereditary spino-cerebellar ataxia, AD-Ray- Julio disease, bed bound, Gtube feeding, chronic tachycardia, essential hypertension presented to ER from custodial (at [place] since 03/24/19) with CC of fever. Pt is awake, can't talk, looks hyperalert and anxious, can't give any history. Allergies: Coded Allergies: No Known Allergies (Unverified , 04/11/19) Medication History Scheduled Donepezil Hcl* (Donepezil Hcl*), 10 MG GT DAILY, (Reported) Lactobacillus Combo No.11 (Probiotic), 1 EACH GT DAILY, (Reported) Multivitamin Liquid* (Multi-Delyn*), 5 ML GT DAILY, (Reported) Pantoprazole Sodium (Protonix), 40 MG GT DAILY, (Reported) Primidone (Mysoline), 100 MG GT QHS, (Reported) Verapamil Hcl (Verapamil Hcl), 20 MG GT TID, (Reported) Scheduled PRN Ondansetron (Zofran), 4 MG GT Q6H PRN for Nausea & Vomiting, (Reported) Patient History Healthcare decision maker Resuscitation status Advanced Directive on File Past Medical/Surgical History Past Medical/Surgical History: (1) CX-Oboxgwd-Untmin disease (2) Chronic tachycardia (3) Cavitary lung disease (4) Hereditary cerebellar ataxia (5) Feeding by G-tube (6) Epilepsy (7) Sickle cell anemia Review of Systems Genitourinary: Reports: no symptoms Psychiatric: Reports: no symptoms Neurological: Reports: no symptoms Endocrine: Reports: no symptoms Hematologic/Lymphatic: Reports: no symptoms All Other Systems: negative except mentioned in HPI Physical Exam General Appearance: cachetic, thin Lines, tubes and drains: peripheral HEENT: normocephalic, atraumatic Neck: non-tender, normal alignment Respiratory/Chest: chest wall non-tender, lungs clear Breasts: no masses Cardiovascular/Chest: normal peripheral pulses Abdomen: normal bowel sounds, non tender Extremities: normal range of motion, non-tender Skin Exam: normal pigmentation Last 24 Hour Vital Signs Date Time Temp Pulse Resp B/P (MAP) Pulse Ox O2 Delivery O2 Flow Rate FiO2 04/12/19 09:00 Room Air 04/12/19 08:00 125 04/12/19 08:00 98.8 118 21 139/81 (100) 96 04/12/19 06:07 97.9 04/12/19 05:37 109 145/98 04/12/19 04:00 97.9 117 22 145/98 (114) 98 04/12/19 04:00 109 04/12/19 00:00 98.2 136 23 125/89 (101) 93 04/12/19 00:00 130 04/11/19 21:50 138 136/96 04/11/19 21:00 Room Air 04/11/19 20:00 99.1 138 22 136/96 (109) 93 04/11/19 19:44 Room Air 04/11/19 16:00 126 04/11/19 13:50 101.2 99 19 124/73 94 04/11/19 13:10 101.1 98 21 108/74 96 Room Air Intake and Output 04/11/19 04/12/19 18:59 06:59 Intake Total 0 ml 446.10 ml Output Total 700 ml 1320 ml Balance -700 ml -873.90 ml Intake Oral 0 ml IV Total 446.10 ml Output Urine Total 700 ml 1320 ml # Bowel Movements 1 Laboratory Tests Test 04/11/19 11:15 04/12/19 05:56 Urine Color Yellow Urine Appearance Clear Urine pH 7 (4.5-8.0) Urine Specific [place] 1.005 (1.005-1.035) Urine Protein 2+ (NEGATIVE) H Urine Glucose (UA) Negative (NEGATIVE) Urine Ketones Negative (NEGATIVE) Urine Blood 3+ (NEGATIVE) H Urine Nitrite Negative (NEGATIVE) Urine Bilirubin Negative (NEGATIVE) Urine Urobilinogen 1 MG/DL (0.0-1.0) H Urine Leukocyte Esterase Negative (NEGATIVE) Urine RBC 10-15 /HPF (0 - 0) H Urine WBC 0-2 /HPF (0 - 0) Urine Squamous Epithelial Cells None /LPF (NONE/OCC) Urine Bacteria None /HPF (NONE) White Blood Count 14.1 K/UL (4.8-10.8) H Red Blood Count 4.43 M/UL (4.70-6.10) L Hemoglobin 13.3 G/DL (14.2-18.0) L Hematocrit 35.7 % (42.0-52.0) L Mean Corpuscular Volume 81 FL (80-99) Mean Corpuscular Hemoglobin 29.9 PG (27.0-31.0) Mean Corpuscular Hemoglobin Concent 37.1 G/DL (32.0-36.0) H Red Cell Distribution Width 15.1 % (11.6-14.8) H Platelet Count 284 K/UL (150-450) Mean Platelet Volume 6.3 FL (6.5-10.1) L Neutrophils (%) (Auto) 81.0 % (45.0-75.0) H Lymphocytes (%) (Auto) 10.7 % (20.0-45.0) L Monocytes (%) (Auto) 6.7 % (1.0-10.0) Eosinophils (%) (Auto) 0.2 % (0.0-3.0) Basophils (%) (Auto) 1.5 % (0.0-2.0) Sodium Level 148 MMOL/L (136-145) H Potassium Level 3.6 MMOL/L (3.5-5.1) Chloride Level 113 MMOL/L (98-107) H Carbon Dioxide Level 28 MMOL/L (21-32) Anion Gap 7 mmol/L (5-15) Blood Urea Nitrogen 14 mg/dL (7-18) Creatinine 0.7 MG/DL (0.55-1.30) Estimat Glomerular Filtration Rate > 60 mL/min (>60) Glucose Level 128 MG/DL (74-106) H Calcium Level 9.1 MG/DL (8.5-10.1) Height (Feet): 5 Height (Inches): 7.00 Weight (Pounds): 103 Medications Current Medications Medications (Trade) Dose Ordered Sig/Kory Route PRN Reason Start Time Stop Time Status Last Admin Dose Admin Acetaminophen (Tylenol) 650 mg Q6H PRN GT Mild Pain/Temp > 100.5 04/11/19 23:00 05/11/19 22:59 04/12/19 05:37 Azithromycin (Zithromax) 500 mg DAILY ORAL 04/12/19 09:00 04/19/19 08:59 04/12/19 08:48 Cefepime HCl 1 gm/ Dextrose 55 ml @ 110 mls/hr Q12H IVPB 04/11/19 18:00 04/18/19 17:59 04/12/19 05:25 Diltiazem HCl (Cardizem) 10 mg Q2H PRN IVP PULSE 04/12/19 08:00 05/12/19 07:59 Donepezil HCl (Aricept) 10 mg DAILY GT 04/12/19 09:00 05/12/19 08:59 04/12/19 08:48 Heparin Sodium (Porcine) (Heparin 5000 units/ml) 5,000 units EVERY 12 HOURS SUBQ 04/12/19 11:00 05/12/19 10:59 Lactobacillus Acidophilus (Culturelle) 1 tab DAILY GT 04/12/19 09:00 05/12/19 08:59 04/12/19 08:48 Lansoprazole (Prevacid) 30 mg DAILY GT 04/12/19 09:00 05/12/19 08:59 04/12/19 08:48 Multivitamins (Multivitamins W/ Minerals 15ml Liquid) 15 ml DAILY GT 04/12/19 09:00 05/12/19 08:59 04/12/19 08:49 Ondansetron HCl (Zofran) 4 mg Q6H PRN GT Nausea & Vomiting 04/12/19 01:45 05/12/19 01:44 Primidone (Mysoline) 100 mg QHS GT 04/12/19 21:00 05/12/19 20:59 Vancomycin HCl (Vanco rx to dose) 1 ea DAILY PRN MISC Per rx protocol 04/11/19 16:30 05/11/19 16:29 Vancomycin/Sodium Chloride 275 ml @ 183.33 mls/ hr Q12HR@0800,2000 IVPB 04/11/19 20:30 04/16/19 20:29 04/12/19 08:48 Verapamil HCl (Calan) 20 mg EVERY 8 HOURS GT 04/12/19 06:00 05/11/19 21:59 04/12/19 05:37 Assessment/Plan Problem List: (1) Sepsis ICD Codes: A41.9 - Sepsis, unspecified organism SNOMED: 54809455 (2) Nosocomial pneumonia ICD Codes: J18.9 - Pneumonia, unspecified organism; Y95 - Nosocomial condition SNOMED: 398236830 (3) Epilepsy ICD Codes: G40.909 - Epilepsy, unspecified, not intractable, without status epilepticus SNOMED: 57422323 (4) Hereditary cerebellar ataxia ICD Codes: G11.2 - Late-onset cerebellar ataxia SNOMED: 66375953 (5) Cavitary lung disease ICD Codes: J98.4 - Other disorders of lung SNOMED: 189588793 (6) Chronic tachycardia ICD Codes: R00.0 - Tachycardia, unspecified SNOMED: 8626334 (7) RI-Akwzeqj-Petzuw disease (8) Feeding by G-tube ICD Codes: Z93.1 - Gastrostomy status SNOMED: 022983512, 482111191, 428023944 Assessment/Plan: armirez cultures iv abx symptomatic treatment feeding by Gtube aspiration precaution Verapamil for chronic tachycardia, review echo to rule out cardiomyopathy sputum induction monitor heart rate prbc prn Hem< 8 dvt prophylaxis. Carlos Sauer MD Apr 12, 2019 11:24
[2019-04-12] MEDS: Heparin 5000 units/ml inj SUBQ SCH ×2 (12:02→21:39)
--- NOTE | 2019-04-12 12:44 | NUR ---
NURSE NOTES: Left a message to Dr. Cadena regarding gram positive test results.
--- NOTE | 2019-04-12 12:58 | NUR ---
RD ASSESSMENT & RECOMMENDATIONS SEE CARE ACTIVITY FOR COMPLETE ASSESSMENT DAILY ESTIMATED NEEDS: Needs based on Severely underweight/ 45kg 35-40 kcals/kg 7362-4753 total kcals 1.5-2.0 g protein/kg 67-90 g total protein 25-35 mL/kg 9070-7304 total fluid mLs NUTRITION DIAGNOSIS: * Increased kcal/prot needs R/T severely underweight status and wt loss as evidenced by pt ~67% IBW, BMI of 15.5, w/ severe generalized wasting, possible significant wt loss of 50lbs/33% in <8 months as per report. 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 CURRENT TF:Jevity 1.2 @ 45ml/hr x 24 hrs ENTERAL NUTRITION RECOMMENDATIONS: Jevity 1.2 @ 60ml/hr x 24 hrs to provide 1440ml, 1728kcal, 80g prot, 1162ml free water * Increase TF goal rate to 60ml/hr x 24 hrs -> advance 10ml q 4-6 hrs as tolerated to goal * HOB over 30 degrees * Without IVF, water flush of 100ml q 6 hrs ADDITIONAL RECOMMENDATIONS: * Calibrated bedscale wt for accurate CBW -> weekly wt monitoring given h/o wt loss, severely underweight * Monitor lytes daily, replete as needed * Monitor BGs, need for carb controlled TF
[2019-04-12] MEDS: Verapamil 80mg tab GT SCH ×2 (14:34→21:36)
[2019-04-12] MEDS: Thiamine HCl 500 MG in D5W 55 ML IVPB SCH ×2 (14:35→22:26)
--- NOTE | 2019-04-12 15:09 | Cardiology Report ---
APPROVED REPORT EXAM: Two-dimensional and M-mode echocardiogram with Doppler and color Doppler. INDICATION Tachycardia M-Mode DIMENSIONS IVSd0.7 (0.7-1.1cm)Left Atrium (MM)1.9 (1.6-4.0cm) LVDd3.1 (3.5-5.6cm)Aortic Root4.7 (2.0-3.7cm) PWd1.0 (0.7-1.1cm)Aortic Cusp Exc.1.9 (1.5-2.0cm) IVSs1.1 cm LVDs1.7 (2.5-4.0cm) PWs1.1 cm Normal left ventricular chamber size, systolic function and wall motion to extent visualized. Left ventricular ejection fraction estimated to be 55-60%. No pericardial effusion. Aortic valve calcification with abnormal cusp excursion . Aortic root dilatation. Mildly thickened mitral valve leaflets with normal excursion. Mild mitral annulus and aortic root calcification. Pulmonic valve not well visualized. Subcostal views not obtainble due to GI-tube. A color flow and spectral Doppler study was performed and revealed: Mitral diastolic velocities suggest reduced left ventricular relaxation c/w mild LV diastolic dysfunction (Grade I ). Trace mitral regurgitation. Trace tricuspid regurgitation. Tricuspid systolic velocities suggests peak right ventricular systolic pressure of 15mmHg.
--- NOTE | 2019-04-12 15:25 | Cardiology Report ---
APPROVED REPORT EKG Measurement Heart [id number] Normal sinus rhythm Normal ECG
--- NOTE | 2019-04-12 15:41 | NUR ---
P.T Note: P.T evaluation completed. Pt is alert ,non verbal , essentially not able to follow simple commands. Pt unable to engage in functional mobilities. Pt is dependent in all aspects of ADL/functional mobilities and self care tasks. Pt not a candidate for skilled P.T service as pt is already at baseline function. DC P.T service. Recommend DC to prior living arrangement for total care and comfort.
--- NOTE | 2019-04-12 16:27 | NUR ---
NURSE NOTES: Left a message to Dr. Sauer regarding pain medication. Waiting for a call back.
--- NOTE | 2019-04-12 16:45 | NUR ---
NURSE NOTES: Left a message to Dr. Wick regarding Patient's seizure history and no medication on board. Waiting for a call back.
[2019-04-12] MEDS: Morphine Sulfate 2mg/ml Inj(IV/IM USE ONLY) IVP PRN ×2 (17:17→21:30)
--- NOTE | 2019-04-12 17:57 | NUR ---
NURSE NOTES: Left a message to Dr. Ortega regarding seizures medication. Waiting for a call back.
--- NOTE | 2019-04-12 18:13 | NUR ---
NURSE NOTES: Called correction and talk to Don. Pt. doesn't take seizures medication, has HX of epilepsy.
--- NOTE | 2019-04-12 19:42 | NUR ---
HAND-OFF: Report given to EDUAR Giraldo. Plan of care endorsed.
--- NOTE | 2019-04-12 19:43 | NUR ---
NURSE NOTES: Received pt from EDUAR Brito. Pt is awake in bed in no acute distress. IV site intact and patent. Garcia catheter intact and draining. Gtube patent, no residual, feeding at goal of 60ml/hr. Bed locked in lowest position, bed alarm on, call light within reach. Seizure precautions implemented. HOB at 45 degrees, pt sacrum off loaded with pillows. Will continue with plan of care.
[2019-04-13] VITALS: BP 111/74
[2019-04-13] MEDS: Morphine Sulfate 2mg/ml Inj(IV/IM USE ONLY) IVP PRN ×2 (01:32→16:51)
--- NOTE | 2019-04-13 02:15 | Consultation ---
DATE OF CONSULTATION: 04/12/2019 NOTE: POOR AUDIO CONSULTING PHYSICIAN: Arley Wick M.D. CHIEF COMPLAINT: This is a 43-year-old man transferred from [facility] with a history of sickle cell disease secondary to hypertension, Ray Julio disease, epilepsy pneumonia, and sepsis. HISTORY OF PRESENT ILLNESS: The patient has a history of . He had a negative EEG encephalopathy" significant dysplasia. He also has a history of "Alzheimer's disease." He has got aspiration pneumonia and a cavitary lesion in the left lower lobe. He did have a CT scan, which show The patient is on donepezil 10 mg, verapamil 20 mg the patient's temperature is 103.2 degrees . I was asked to see the patient in terms of disease. He has no evidence of seizures. The patient on admission had a chest x-ray revealing atelectasis in the left lung base. Probable consolidation. No signs of bronchial wall thickening. His CBC platelet count is normal. White count is 16,500. Urinalysis revealed 0 to 2 wbc's, +3 protein, no bacteria. Mostly unremarkable. Chemistries is normal examination except for a low albumin of 2.7. The sodium today is . An echocardiogram done yesterday aortic valve confrontation, mild mitral annular calcification, left ventricular diastolic dysfunction, mitral and tricuspid regurgitation. The pulmonary pressure is normal. Right ventricular systolic pressure is 50. Rest is unremarkable. The patient is seen in the CCU today. Previously he was diagnosed to be with left basilar atelectasis with possible consolidation There is no known family history of neurologic disease. PAST MEDICAL HISTORY/PAST MEDICAL ILLNESSES: 1. Sickle cell disease, see above. 2. Ray-Julio disease, see above. 3. Probable aspiration pneumonia. 4. 5. History of seizure disorder with status epilepticus. 6. Dementia, etiology unclear. 7. Hypertension. MEDICATIONS: See above. SOCIAL HISTORY: The patient is totally disabled. REVIEW OF SYSTEMS: PHYSICAL EXAMINATION: GENERAL: The patient is a well developed, cachectic man, lying in bed. VITAL SIGNS: Blood pressure is 129/81, heart rate is , temperature is NECK: Carotid +2, no bruits. LUNGS: Breath sounds are decreased. I could not hear any rales and rhonchi. CARDIOVASCULAR: PMI was not felt. JVP not visualized. Heart tones were distant. ABDOMEN: Revealed a feeding tube. Bowel sounds decreased. No obvious tenderness or organomegaly. BACK: Not tested. EXTREMITIES: He has a pressure sore on his feet and shoulders. NEUROLOGIC EXAMINATION: MENTAL STATUS: He is stupurous, but opens to pain. midline commands. No spontaneous speech CRANIAL NERVE EXAMINATION: CRANIAL NERVE II: Could not be examined. CRANIAL NERVES III, IV, AND : The eyes appear to be in the midline. Extraocular motility could not be noted. CRANIAL NERVE V: Corneal sensation appeared to be intact. CRANIAL NERVE VII: Facial strength appeared to be symmetrical bilaterally. CRANIAL NERVES VII TO XII: Could not be examined. He bulldogged on the tongue depressor. MUSCLE EXAMINATION: He has significant diffuse muscular atrophy. There is some fasciculations in his right chest. no movement of his arms could be elicited. Testing for Babinski response is good. bilaterally pretty vigorously. Reflexes 0 in the upper and lower extremities. It is difficult to say whether he had upgoing and downgoing toes. SENSORY EXAMINATION: There was some response to deep pain on the bottom of the feet as noted above. IMPRESSION: The patient has multiple emboli , which is 12 to 41 in normal patients. Gene codes for protein caudate toxin. The patient could have extrapyramidal features including rigidity, dystonia, may probably from other problems. He has got dysarthria and dysphagia, which is contributed to by his metabolic encephalopathy, questionable dementia cognitive impairments, verbal and visual memory deficits visual spatial and constructional dysfunction. He would also have autonomic dysfunction, however the patient . He has lost lot of weight. I may want to treat him with high-dose Wernicke's disease and also are getting which probably not doing much either except for probably status. He also has antibiotics. The patient has a metabolic encephalopathy, which is superimposed on his dementia, which could be at least partly related to his Ray-Julio disease. The metabolic encephalopathy is due to his sepsis. Thyroid storm is a possibility, but not likely. His B12 methylmalonic acid levels sickle cell hemoglobin C. His indices normal range. B12 deficiency is a possibility, but unlikely. PLAN: 1. Get B12, methylmalonic acid level. 2. Thiamine. 3. I will speak to you about this case. Thank you for this interesting case, Dr. Sauer. Arley Wick MD DR: FERDINAND JOB#: [id number] CC:
[2019-04-13 04:00] VITALS: BP 119/89
[2019-04-13] MEDS ORDERED: LORazepam 1mg tab ORAL PRN (04:45)
[2019-04-13] MEDS: Thiamine HCl 500 MG in D5W 55 ML IVPB SCH ×3 (05:28→22:37)
--- NOTE | 2019-04-13 06:00 | Consultation ---
DATE OF CONSULTATION: 04/12/2019 "NOTE: POOR AUDIO QUALITY" PSYCHOTHERAPY CONSULTATION PROGRESS NOTE CONSULTING PHYSICIAN: Harsha Carter M.D. TREATING ATTENDING PHYSICIAN: Marito Ortega D.O. HISTORY OF PRESENT ILLNESS: This patient is a 43-year-old male patient brought into the hospital with sepsis. The patient has been confused, disorganized, anxious, and restless. For these reasons, he was referred for psychotherapeutic services. The patient is from [facility]. When I assessed this patient, the patient was unable to communicate. At this time, the patient is very confused and disorganized. He is a poor historian, unable to provide any viable information. I spoke to the staff. I reviewed his records. However, the patient is altered in his mental status at this time. He has been referred to our telemetry for further care. The patient is very confused, disorganized, and unable to provide me viable information. The patient had no auditory or visual hallucinations at the time of exam. The patient denies suicidal or homicidal. He was unable to provide us viable information. PAST MEDICAL HISTORY: The patient's past medical history includes a history of Alzheimer's, sickle cell, seizures, weakness, and anemia. ALLERGIES: The patient has no known drug allergies. SUBSTANCE ABUSE HISTORY: There is no indication of alcohol use, illicit substance use, or smoking cigarettes. PSYCHIATRIC HISTORY: The patient has a history of Alzheimer's at this time. SOCIAL HISTORY: The patient is a 43-year-old male patient from [facility]. Financially sustained through [facility]. MENTAL STATUS EXAMINATION: The patient is responsive to his name and has been in impulsive distress. However, he has been very confused and disorganized. Mood is dysphoric. Affect blunted. Thought process is disorganized and confused. He has poor insight into altered mental status. The patient has no auditory or visual hallucinations. The patient has poor insight, poor judgment, and poor impulse control. DIAGNOSIS: Rule out possible schizoaffective disorder, bipolar type. PLAN: At this time, I attempted to assess this patient's mood. I provided the patient with reality orientation. He is oriented to person, place, time, and situation. He is very confused and disorganized including possible Alzheimer's, however, the patient is a very poor historian and altered in his mental status. At this time, continue medication compliance with positive coping skills and possibly stabilizing thoughts and behavior. This clinician has reviewed the patient's chart and discussed the treatment with treatment team. Harsha Carter PsyD. DR: ODIN JOB#: [id number] CC:
[2019-04-13] MEDS: Cefepime HCl 1 GM in D5W 55 ML IVPB SCH ×2 (06:10→17:56)
[2019-04-13] MEDS: Verapamil 80mg tab GT SCH ×3 (06:20→22:38)
--- NOTE | 2019-04-13 07:02 | NUR ---
HAND-OFF: Report given to EDUAR Marcus. Endorsed plan of care. Addendum: 04/13/19 at 0730 by BERNARD GUILLAUME RN HAND-OFF: Report given to EDUAR Brito. Endorsed plan of care.
--- NOTE | 2019-04-13 07:05 | NUR ---
NURSE NOTES: Report received from EDUAR Giraldo. Patient sleeping comfortably. Opens eyes to shaking. IV on TKO, site intact. F/C draining. G tube dressing intact. G tube feeding at 60cc/hr. Bed on lowest position, side rails upx2, brakes engaged, alarm on. Seizure precaution in place. Call light within easy reach.
[2019-04-13 08:00] VITALS: BP 116/70
[2019-04-13 08:49] LABS: BASOPHILS % (AUTO) 0.9 % (0.0-2.0); EOSINOPHILS % (AUTO) 0.4 % (0.0-3.0); HEMATOCRIT 33.4 % (42.0-52.0); HEMOGLOBIN 11.9 G/DL (14.2-18.0); LYMPHOCYTES % (AUTO) 12.5 % (20.0-45.0); MEAN CORPUSCULAR VOLUME 83 FL (80-99); MONOCYTES % (AUTO) 7.5 % (1.0-10.0); NEUTROPHILS % (AUTO) 78.8 % (45.0-75.0); PLATELET COUNT 281 K/UL (150-450); RED BLOOD COUNT 4.05 M/UL (4.70-6.10); RED CELL DISTRIBUTION WIDTH 17.2 % (11.6-14.8)
[2019-04-13 09:02] LABS: ANION GAP 8 mmol/L (5-15); BLOOD UREA NITROGEN 13 mg/dL (7-18); CARBON DIOXIDE 28 MMOL/L (21-32); CHLORIDE 116 MMOL/L (98-107); CREATININE 0.6 MG/DL (0.55-1.30); POTASSIUM 3.4 MMOL/L (3.5-5.1); SODIUM 151 MMOL/L (136-145)
[2019-04-13] MEDS: Azithromycin 250mg tab ORAL SCH (09:16)
[2019-04-13] MEDS: Donepezil 10mg tab GT SCH (09:16)
[2019-04-13] MEDS: Lactobacillus-GG tablet GT SCH (09:17)
[2019-04-13] MEDS: Multivitamins W/Minerals 15 ML UDC GT SCH (09:17)
[2019-04-13] MEDS: Vancomycin 1.25gm/NS Premix 275 ML IVPB SCH (09:19)
[2019-04-13] MEDS: Heparin 5000 units/ml inj SUBQ SCH ×2 (09:19→20:32)
--- NOTE | 2019-04-13 10:45 | Consultation ---
DATE OF CONSULTATION: 04/13/2019 INITIAL PSYCHIATRIC EVALUATION CONSULTING PHYSICIAN: Osbaldo Bird M.D. HISTORY OF PRESENT ILLNESS: This is a male patient who is 43 years old. He is admitted to [facility]. The reason why this patient is admitted to [facility] is that this patient came in because of shortness of breath, weakness, pneumonia, and sepsis. He was transferred from [facility]. Following assessment in his room, he is very confused and disorganized. He has a flat affect. Middle-aged male patient, but he had difficulties understanding why he was in the hospital and he seemed to have poor insight in his psychiatric illness as well as his medical illnesses as well, so daily psychiatric consultation was requested because apparently due to his medical illness, his cognition has declined below his baseline the patient to be seen by Psychiatry further decline in his cognition and possibly to try to improve his cognition. PAST MEDICAL HISTORY: He has a history of sickle cell anemia and cachexia. He also has a history of cavitary lung disease, pneumonia, and epilepsy. ALLERGIES: He has no known drug allergies. PSYCHOTROPIC MEDICATIONS ON ADMISSION: The patient is currently on a medication regimen. He is on a psychotropic medication regimen consisting of Aricept 10 mg per G-tube nightly. SUBSTANCE ABUSE HISTORY: Per chart, he has no history of any drug or alcohol use at this time. FAMILY PSYCHIATRIC HISTORY: Denies. PAIN ASSESSMENT: 0/10. DEVELOPMENTAL PROBLEMS: Denies. SOCIAL HISTORY: The patient lives in [facility]. Financially supported by [facility] and Medicare. PSYCHIATRIC HISTORY: History of major depressive disorder, mild, recurrent with psychotic features, rule out dementia with psychosis. He is a poor historian. STRENGTHS: He is motivated to get better and he has a place to live. WEAKNESSES: He is impulsive. He has minimal support system. MENTAL STATUS EXAMINATION: This is a 43-year-old male. His appearance is disheveled. Attitude, irritable and agitated. Affect, guarded and restricted. Intellect poor because he does not know current events, does not know last four presidents. Mood, depressed and anxious. Motor activity, psychomotor agitation. Attention span is poor because he cannot do serial sevens or spell world backwards. Orientation x2. He is oriented to person and place, not to time and situation. Speech is low volume, nonsensical, mostly nonverbal. Thought process, disorganized and illogical. Thought content, auditory hallucinations also some paranoid delusions. Perception is poor because he has perceptual disturbance. Abstract reasoning is poor because he does not understand proverbs, only has concrete thinking. Insight is poor because he has underlying psych disorder. Judgment is poor because he is not able to make clear medical decisions for himself. His short-term memory 3/3 word recall after 5 minutes delay with good short-term memory. Long-term memory is intact based on the knowledge of long-term events in his life such as the high school that he went to. DIAGNOSES: Major depressive disorder, mild, recurrent with psychotic features, rule out dementia with psychosis. PLAN: Plan for this patient is I am going to continue this patient on a medication regimen of Namenda, but I am going to actually change his Namenda to 5 mg from once daily to twice a day and provide him with 20 minutes of cognitive behavioral therapy to help him identify his automatic negative thoughts, help him convert his negative thoughts to more positive thoughts to reduce depression, anxiety, and mood lability. Chart was reviewed. Discussed with staff. Seen and assessed at bedside. I encouraged him to interact appropriately with staff. I would like to thank, Dr. Marito Ortega, for this interesting consultation. Osbaldo Bird M.D. DR: NEGAR JOB#: [id number] CC:
--- NOTE | 2019-04-13 11:00 | NUR ---
NURSE NOTES: Left a message to Dr. Cadena regarding Pt's lab results.
--- NOTE | 2019-04-13 11:13 | NUR ---
NURSE NOTES: Left a message to Dr. Sauer regarding Pt's lab results.
--- NOTE | 2019-04-13 11:57 | Pulmonology Progress Note ---
Assessment/Plan Problems: (1) Sepsis (2) Nosocomial pneumonia (3) Epilepsy (4) Hereditary cerebellar ataxia (5) Cavitary lung disease (6) Chronic tachycardia (7) AA-Guntcuv-Lpptnq disease (8) Feeding by G-tube Assessment/Plan cultures pending iv abx symptomatic treatment feeding by Gtube aspiration precaution Verapamil for chronic tachycardia, double the dose since sputum induction monitor heart rate prbc prn Hem< 8 dvt prophylaxis. reviewed echo: normal EF Subjective ROS Limited/Unobtainable: Yes Constitutional: Reports: no symptoms Allergies: Coded Allergies: No Known Allergies (Unverified , 04/11/19) Objective Last 24 Hour Vital Signs Date Time Temp Pulse Resp B/P (MAP) Pulse Ox O2 Delivery O2 Flow Rate FiO2 04/13/19 09:00 Room Air 04/13/19 08:00 111 04/13/19 08:00 98.2 113 17 116/70 (85) 94 04/13/19 06:20 119 100/66 04/13/19 04:00 124 04/13/19 04:00 98.2 124 22 119/89 (99) 99 04/13/19 00:00 98.1 115 23 111/74 (86) 94 04/13/19 00:00 139 04/12/19 21:36 128 127/88 04/12/19 21:00 Room Air 04/12/19 20:00 97.3 135 21 127/88 (101) 100 04/12/19 20:00 139 04/12/19 17:27 133 141/91 04/12/19 16:40 98.1 118 20 141/91 (108) 92 04/12/19 16:00 139 04/12/19 16:00 98.1 133 20 141/91 (108) 92 04/12/19 14:34 105 117/77 04/12/19 12:00 105 04/12/19 12:00 96.4 104 20 117/77 (90) 95 Intake and Output 04/12/19 04/13/19 19:00 07:00 Intake Total 690 ml Output Total 1000 ml 1100 ml Balance -310 ml -1100 ml Tube Feeding 690 ml Output Urine Total 1000 ml 1100 ml # Voids 2 # Bowel Movements 1 General Appearance: cachetic HEENT: normocephalic, atraumatic Respiratory/Chest: chest wall non-tender, normal breath sounds Cardiovascular: normal peripheral pulses, normal rate, regularly irregular Abdomen: normal bowel sounds, soft, non tender Extremities: no cyanosis, no clubbing Neurologic/Psychiatric: 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 II-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 grossly normal Lymphatic: no groin adenopathy Microbiology Date/Time Source Procedure Growth Status 04/11/19 10:50 Blood Blood Culture - Preliminary NO GROWTH AFTER 24 HOURS Resulted 04/11/19 10:35 Blood Blood Culture - Preliminary Staphylococcus Sp Coag Neg Resulted 04/11/19 11:15 Sputum Gram Stain - Final Resulted 04/11/19 11:15 Sputum Culture - Preliminary Gram Negative Bacillus 1 Resulted 04/11/19 04:04 Nasopharynx - Final Complete 04/11/19 04:04 Nasopharynx - Final Complete 04/11/19 10:50 Rectum VRE Culture - Final Enterococcus Faecium - Vre Complete 04/11/19 10:50 Rectum Received Laboratory Tests 04/13/19 07:10: White Blood Count 14.0H, Red Blood Count 4.05L, Hemoglobin 11.9L, Hematocrit 33.4L, Mean Corpuscular Volume 83, Mean Corpuscular Hemoglobin 29.4, Mean Corpuscular Hemoglobin Concent 35.6, Red Cell Distribution Width 17.2H, Platelet Count 281, Mean Platelet Volume 6.5, Neutrophils (%) (Auto) 78.8H, Lymphocytes (%) (Auto) 12.5L, Monocytes (%) (Auto) 7.5, Eosinophils (%) (Auto) 0.4, Basophils (%) (Auto) 0.9, Sodium Level 151H, Potassium Level 3.4L, Chloride Level 116H, Carbon Dioxide Level 28, Anion Gap 8, Blood Urea Nitrogen 13, Creatinine 0.6, Estimat Glomerular Filtration Rate > 60, Glucose Level 143H , Calcium Level 9.0, Vancomycin Level Trough 10.2 Current Medications Medications (Trade) Dose Ordered Sig/Kory Route PRN Reason Start Time Stop Time Status Last Admin Dose Admin Acetaminophen (Tylenol) 650 mg Q6H PRN GT Mild Pain/Temp > 100.5 04/11/19 23:00 05/11/19 22:59 04/12/19 20:20 Azithromycin (Zithromax) 500 mg DAILY GT 04/14/19 09:00 04/19/19 08:59 Cefepime HCl 1 gm/ Dextrose 55 ml @ 110 mls/hr Q12H IVPB 04/11/19 18:00 04/18/19 17:59 04/13/19 06:10 Diltiazem HCl (Cardizem) 10 mg Q2H PRN IVP PULSE 04/12/19 08:00 05/12/19 07:59 04/12/19 17:27 Donepezil HCl (Aricept) 10 mg DAILY GT 04/12/19 09:00 05/12/19 08:59 04/13/19 09:16 Heparin Sodium (Porcine) (Heparin 5000 units/ml) 5,000 units EVERY 12 HOURS SUBQ 04/12/19 11:00 05/12/19 10:59 04/13/19 09:19 Lactobacillus Acidophilus (Culturelle) 1 tab DAILY GT 04/12/19 09:00 05/12/19 08:59 04/13/19 09:17 Lansoprazole (Prevacid) 30 mg DAILY GT 04/12/19 09:00 05/12/19 08:59 04/13/19 09:16 Lorazepam (Ativan) 1 mg Q6H PRN GT For Anxiety 04/13/19 09:30 04/20/19 04:44 Morphine Sulfate (Morphine Sulfate) 1 mg Q4H PRN IVP For Pain 4-6 04/12/19 17:00 04/19/19 16:59 04/12/19 17:17 Morphine Sulfate (Morphine Sulfate) 2 mg Q4H PRN IVP Severe Pain (Pain Scale 7-10) 04/12/19 17:00 04/19/19 16:59 04/13/19 01:32 Multivitamins (Multivitamins W/ Minerals 15ml Liquid) 15 ml DAILY GT 04/12/19 09:00 05/12/19 08:59 04/13/19 09:17 Ondansetron HCl (Zofran) 4 mg Q6H PRN GT Nausea & Vomiting 04/12/19 01:45 05/12/19 01:44 Primidone (Mysoline) 100 mg QHS GT 04/12/19 21:00 05/12/19 20:59 04/12/19 21:36 Thiamine HCl 500 mg/Dextrose 60 ml @ 112 mls/hr Q8HR IVPB 04/12/19 14:00 04/14/19 13:59 04/13/19 05:28 Vancomycin HCl (Vanco rx to dose) 1 ea DAILY PRN MISC Per rx protocol 04/11/19 16:30 05/11/19 16:29 Vancomycin/Sodium Chloride 275 ml @ 137.5 mls/ hr Q12HR@0600,1800 IVPB 04/13/19 18:00 04/18/19 17:59 Verapamil HCl (Calan) 40 mg EVERY 8 HOURS GT 04/12/19 14:00 05/11/19 21:59 04/13/19 06:20 Carlos Sauer MD Apr 13, 2019 11:57
[2019-04-13 12:00] VITALS: BP 116/76
--- NOTE | 2019-04-13 12:51 | Infectious Diseases Prog Note ---
Assessment/Plan Assessment/Plan Assessment: Sepsis PNA -CXR: Left basilar atelectasis and possible consolidation -sp cx GNR -influenza sc neg -u/a neg Fever; improving Leukocytosis; improving Gram positive bacteremia- likely contaminant -04/11 Bcx 1/4 CONS; 04/12 Bcx p HTN dysphagia s/p GT cerebellar ataxia seizure disorder Alzheimer's dementia SNF resident Plan: -Cotninue empiric IV Vancomycin and Cefepime #3 -Continue Azithromycin #3 -04/11 SP Ceftriaxone x1 -f/u cx -Monitor CBC/CMP, temperatures -GT care -aspiration precautions -f/u repeat Bcx x2 Thank you for consulting [facility]. Will continue to follow along with you. Discussed with RN. Subjective Allergies: Coded Allergies: No Known Allergies (Unverified , 04/11/19) Subjective afebrile in>36hrs wbc improved bacteremic CONS; repeat Bcx p Objective Vital Signs Last 24 Hour Vital Signs Date Time Temp Pulse Resp B/P (MAP) Pulse Ox O2 Delivery O2 Flow Rate FiO2 04/13/19 09:00 Room Air 04/13/19 08:00 111 04/13/19 08:00 98.2 113 17 116/70 (85) 94 04/13/19 06:20 119 100/66 04/13/19 04:00 124 04/13/19 04:00 98.2 124 22 119/89 (99) 99 04/13/19 00:00 98.1 115 23 111/74 (86) 94 04/13/19 00:00 139 04/12/19 21:36 128 127/88 04/12/19 21:00 Room Air 04/12/19 20:00 97.3 135 21 127/88 (101) 100 04/12/19 20:00 139 04/12/19 17:27 133 141/91 04/12/19 16:40 98.1 118 20 141/91 (108) 92 04/12/19 16:00 139 04/12/19 16:00 98.1 133 20 141/91 (108) 92 04/12/19 14:34 105 117/77 Height (Feet): 5 Height (Inches): 7.00 Weight (Pounds): 103 Objective GENERAL: Calm in bed, lethargic, confused, and nonverbal. VITAL SIGNS: Temperature 101, pulse 98, respirations 21, and blood pressure 108/74. CARDIOVASCULAR: No murmurs. LUNGS: Poor air exchange. ABDOMEN: Bowel sounds distant. EXTREMITIES: No cyanosis, clubbing, or edema. NEUROLOGIC: The patient is flaccid in bed, not following directions. Microbiology Date/Time Source Procedure Growth Status 04/11/19 10:50 Blood Blood Culture - Preliminary NO GROWTH AFTER 24 HOURS Resulted 04/11/19 10:35 Blood Blood Culture - Preliminary Staphylococcus Sp Coag Neg Resulted 04/11/19 11:15 Sputum Gram Stain - Final Resulted 04/11/19 11:15 Sputum Culture - Preliminary Gram Negative Bacillus 1 Resulted 04/11/19 10:50 Nasal Nares MRSA Culture - Final NO METHICILLIN RESISTANT STAPH AUREUS... Complete 04/11/19 04:04 Nasopharynx - Final Complete 04/11/19 04:04 Nasopharynx - Final Complete 04/11/19 10:50 Rectum VRE Culture - Final Enterococcus Faecium - Vre Complete 04/11/19 10:50 Rectum Received Laboratory Tests Test 04/13/19 07:10 White Blood Count 14.0 K/UL (4.8-10.8) H Red Blood Count 4.05 M/UL (4.70-6.10) L Hemoglobin 11.9 G/DL (14.2-18.0) L Hematocrit 33.4 % (42.0-52.0) L Mean Corpuscular Volume 83 FL (80-99) Mean Corpuscular Hemoglobin 29.4 PG (27.0-31.0) Mean Corpuscular Hemoglobin Concent 35.6 G/DL (32.0-36.0) Red Cell Distribution Width 17.2 % (11.6-14.8) H Platelet Count 281 K/UL (150-450) Mean Platelet Volume 6.5 FL (6.5-10.1) Neutrophils (%) (Auto) 78.8 % (45.0-75.0) H Lymphocytes (%) (Auto) 12.5 % (20.0-45.0) L Monocytes (%) (Auto) 7.5 % (1.0-10.0) Eosinophils (%) (Auto) 0.4 % (0.0-3.0) Basophils (%) (Auto) 0.9 % (0.0-2.0) Sodium Level 151 MMOL/L (136-145) H Potassium Level 3.4 MMOL/L (3.5-5.1) L Chloride Level 116 MMOL/L (98-107) H Carbon Dioxide Level 28 MMOL/L (21-32) Anion Gap 8 mmol/L (5-15) Blood Urea Nitrogen 13 mg/dL (7-18) Creatinine 0.6 MG/DL (0.55-1.30) Estimat Glomerular Filtration Rate > 60 mL/min (>60) Glucose Level 143 MG/DL (74-106) H Calcium Level 9.0 MG/DL (8.5-10.1) Vancomycin Level Trough 10.2 ug/mL (5.0-12.0) Current Medications Medications (Trade) Dose Ordered Sig/Kory Route PRN Reason Start Time Stop Time Status Last Admin Dose Admin Acetaminophen (Tylenol) 650 mg Q6H PRN GT Mild Pain/Temp > 100.5 04/11/19 23:00 05/11/19 22:59 04/12/19 20:20 Azithromycin (Zithromax) 500 mg DAILY GT 04/14/19 09:00 04/19/19 08:59 Cefepime HCl 1 gm/ Dextrose 55 ml @ 110 mls/hr Q12H IVPB 04/11/19 18:00 04/18/19 17:59 04/13/19 06:10 Dextrose 1,000 ml @ 75 mls/hr [id number] IV 04/13/19 12:00 05/13/19 11:59 04/13/19 12:16 Dextrose (Dextrose 50%) 25 ml Q30M PRN IV Hypoglycemia 04/13/19 12:15 05/13/19 12:14 Dextrose (Dextrose 50%) 50 ml Q30M PRN IV Hypoglycemia 04/13/19 12:15 05/13/19 12:14 Diltiazem HCl (Cardizem) 10 mg Q2H PRN IVP PULSE 04/12/19 08:00 05/12/19 07:59 04/12/19 17:27 Donepezil HCl (Aricept) 10 mg DAILY GT 04/12/19 09:00 05/12/19 08:59 04/13/19 09:16 Heparin Sodium (Porcine) (Heparin 5000 units/ml) 5,000 units EVERY 12 HOURS SUBQ 12/11/19 11:00 05/12/19 10:59 04/13/19 09:19 Insulin Aspart (NovoLOG) BEFORE MEALS AND HS SUBQ 04/13/19 16:30 05/13/19 16:29 Lactobacillus Acidophilus (Culturelle) 1 tab DAILY GT 04/12/19 09:00 05/12/19 08:59 04/13/19 09:17 Lansoprazole (Prevacid) 30 mg DAILY GT 04/12/19 09:00 05/12/19 08:59 04/13/19 09:16 Lorazepam (Ativan) 1 mg Q6H PRN GT For Anxiety 04/13/19 09:30 04/20/19 04:44 Morphine Sulfate (Morphine Sulfate) 1 mg Q4H PRN IVP For Pain 4-6 04/12/19 17:00 04/19/19 16:59 04/12/19 17:17 Morphine Sulfate (Morphine Sulfate) 2 mg Q4H PRN IVP Severe Pain (Pain Scale 7-10) 04/12/19 17:00 04/19/19 16:59 04/13/19 01:32 Multivitamins (Multivitamins W/ Minerals 15ml Liquid) 15 ml DAILY GT 04/12/19 09:00 05/12/19 08:59 04/13/19 09:17 Ondansetron HCl (Zofran) 4 mg Q6H PRN GT Nausea & Vomiting 04/12/19 01:45 05/12/19 01:44 Primidone (Mysoline) 100 mg QHS GT 04/12/19 21:00 05/12/19 20:59 04/12/19 21:36 Thiamine HCl 500 mg/Dextrose 60 ml @ 112 mls/hr Q8HR IVPB 04/12/19 14:00 04/14/19 13:59 04/13/19 05:28 Vancomycin HCl (Vanco rx to dose) 1 ea DAILY PRN MISC Per rx protocol 04/11/19 16:30 05/11/19 16:29 Vancomycin/Sodium Chloride 275 ml @ 137.5 mls/ hr Q12HR@0600,1800 IVPB 04/13/19 18:00 04/18/19 17:59 Verapamil HCl (Calan) 80 mg EVERY 8 HOURS GT 04/13/19 14:00 05/11/19 21:59 Shirley Cadena M.D. Apr 13, 2019 12:51
--- NOTE | 2019-04-13 13:41 | NUR ---
NURSE NOTES: Checked skin with wound care nurse. Per wound care nurse patient doesn't have sacral opening or skin tear however, hyperpigmentation from previous wound with dry skin.
--- NOTE | 2019-04-13 14:06 | General Progress Note ---
Assessment/Plan Problem List: (1) Pneumonia ICD Codes: J18.9 - Pneumonia, unspecified organism SNOMED: 632970733 (2) Sickle cell anemia ICD Codes: D57.1 - Sickle-cell disease without crisis SNOMED: 923192150 (3) Sepsis ICD Codes: A41.9 - Sepsis, unspecified organism SNOMED: 72851562 Status: unchanged Assessment/Plan: pt diet abx psyc neuro eval cbc bmp am Subjective Allergies: Coded Allergies: No Known Allergies (Unverified , 04/11/19) All Systems: reviewed and negative except above Subjective sleepy calm Objective Last 24 Hour Vital Signs Date Time Temp Pulse Resp B/P (MAP) Pulse Ox O2 Delivery O2 Flow Rate FiO2 04/13/19 12:00 110 04/13/19 12:00 99.0 114 16 116/76 (89) 94 04/13/19 09:00 Room Air 04/13/19 08:00 111 04/13/19 08:00 98.2 113 17 116/70 (85) 94 04/13/19 06:20 119 100/66 04/13/19 04:00 124 04/13/19 04:00 98.2 124 22 119/89 (99) 99 04/13/19 00:00 98.1 115 23 111/74 (86) 94 04/13/19 00:00 139 04/12/19 21:36 128 127/88 04/12/19 21:00 Room Air 04/12/19 20:00 97.3 135 21 127/88 (101) 100 04/12/19 20:00 139 04/12/19 17:27 133 141/91 04/12/19 16:40 98.1 118 20 141/91 (108) 92 04/12/19 16:00 139 04/12/19 16:00 98.1 133 20 141/91 (108) 92 04/12/19 14:34 105 117/77 Intake and Output 04/12/19 04/13/19 18:59 06:59 Intake Total 675 ml 60 ml Output Total 1000 ml 1100 ml Balance -325 ml -1040 ml Tube Feeding 675 ml 60 ml Output Urine Total 1000 ml 1100 ml # Voids 2 # Bowel Movements 1 Laboratory Tests 04/13/19 07:10: White Blood Count 14.0H, Red Blood Count 4.05L, Hemoglobin 11.9L, Hematocrit 33.4L, Mean Corpuscular Volume 83, Mean Corpuscular Hemoglobin 29.4, Mean Corpuscular Hemoglobin Concent 35.6, Red Cell Distribution Width 17.2H, Platelet Count 281, Mean Platelet Volume 6.5, Neutrophils (%) (Auto) 78.8H, Lymphocytes (%) (Auto) 12.5L, Monocytes (%) (Auto) 7.5, Eosinophils (%) (Auto) 0.4, Basophils (%) (Auto) 0.9, Sodium Level 151H, Potassium Level 3.4L, Chloride Level 116H, Carbon Dioxide Level 28, Anion Gap 8, Blood Urea Nitrogen 13, Creatinine 0.6, Estimat Glomerular Filtration Rate > 60, Glucose Level 143H , Calcium Level 9.0, Vancomycin Level Trough 10.2 Height (Feet): 5 Height (Inches): 7.00 Weight (Pounds): 103 General Appearance: lethargic EENT: normal ENT inspection Neck: normal alignment Cardiovascular: normal peripheral pulses, normal rate, regular rhythm Respiratory/Chest: chest wall non-tender, lungs clear, normal breath sounds Abdomen: normal bowel sounds, non tender, soft Extremities: normal inspection Edema: no edema noted Arm (L), no edema noted Arm (R), no edema noted Leg (L), no edema noted Leg (R), no edema noted Pedal (L), no edema noted Pedal (R), no edema noted Generalized Neurologic: motor weakness Skin: normal pigmentation, warm/dry Marito Ortega DO Apr 13, 2019 14:06
[2019-04-13 16:00] VITALS: BP 114/77
[2019-04-13] MEDS ORDERED: NovoLOG Insulin Flexpen SUBQ SCH (16:30)
--- NOTE | 2019-04-13 16:35 | NUR ---
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 101.2 HR 112 RR 24 B/P 110/70 WBC 16.5 CXR=LEFT BASILAR ATELECTASIS IS: TYLENOL ADMITTED TO [facility]@1750 tELE STATUS DCP RETURN TO [facility]
[2019-04-13] MEDS: NovoLOG Insulin Flexpen SUBQ SCH (18:00)
[2019-04-13] MEDS: Vancomycin 1.5gm/NS Premix q24h IVPB SCH (18:10)
--- NOTE | 2019-04-13 18:10 | NUR ---
NURSE NOTES: Pt. placed on P200 mattress. Repositioned for comfort.
--- NOTE | 2019-04-13 19:25 | NUR ---
HAND-OFF: Report given to EDUAR Giraldo. Patient in stable condition. Plan of care endorsed.
--- NOTE | 2019-04-13 19:26 | NUR ---
NURSE NOTES: Report received from EDUAR Brito. Patient sleeping comfortably in no acute distress. Opens eyes when greeted by name. IV , site intact. F/C draining. G tube dressing intact. G tube feeding at 60cc/hr. Bed on lowest position, side rails upx3, brakes engaged, alarm on. Seizure precaution in place. Call light within easy reach. Will continue with plan of care.
[2019-04-13 20:00] VITALS: BP 103/69
[2019-04-13] MEDS: LORazepam 1mg tab GT PRN (20:01)
--- NOTE | 2019-04-13 22:15 | Electroencephalogram ---
DATE OF PROCEDURE: 04/12/2019 REQUESTING PHYSICIAN: Arley Wick M.D. HISTORY: This EEG was performed on a 43-year-old gentleman with a history of hereditary spinocerebellar ataxia, cognitive dysfunction, and Ray-Julio disease. The patient also has a history of seizure disorder and cognitive decline. The purpose of this EEG was to evaluate the patient for ongoing ictal or interictal phenomena and to determine the degree and type of cerebral dysfunction. TECHNICAL NOTE: This EEG was performed on a [employer] with electrodes placed on the scalp according to the International 10-20 system. [id number] and [id number] montages were used. The EEG was technically satisfactory and was performed in the poorly responsive state. OBSERVATIONS: In the poorly responsive state, the background activity consisted of 1.5-2.5 Hz delta activity. No significant reactivity to external stimulation was noted. Large parts of the tracing were marred by EMG and movement artifact. No focal abnormalities or epileptiform discharges were seen. IMPRESSION: This is an abnormal EEG characterized by slowing of the background in the 1.5-2.5 Hz delta range and no significant reactivity to external stimulation. COMMENT: This study is consistent with an encephalopathy of severe degree. Clinical correlation is recommended. Hipolito Pope M.D., M.S.P.H. DR: LANIE JOB#: [id number]
[2019-04-14] VITALS: BP 95/58
[2019-04-14] MEDS: NovoLOG Insulin Flexpen SUBQ SCH ×4 (00:50→18:29)
[2019-04-14] MEDS: LORazepam 1mg tab GT PRN ×2 (02:01→19:01)
[2019-04-14 04:00] VITALS: BP 121/62
[2019-04-14] MEDS: Cefepime HCl 1 GM in D5W 55 ML IVPB SCH ×2 (05:32→17:54)
[2019-04-14] MEDS: Verapamil 80mg tab GT SCH ×3 (05:33→22:35)
[2019-04-14] MEDS: Thiamine HCl 500 MG in D5W 55 ML IVPB SCH (06:17)
[2019-04-14] MEDS: Vancomycin 1.5gm/NS Premix q24h IVPB SCH ×2 (07:05→18:14)
--- NOTE | 2019-04-14 07:37 | NUR ---
HAND-OFF: Report given to EDUAR Vasquez. Endorsed plan of care.
[2019-04-14 07:59] LABS: BASOPHILS % (AUTO) 1.1 % (0.0-2.0); EOSINOPHILS % (AUTO) 2.3 % (0.0-3.0); HEMOGLOBIN 11.2 G/DL (14.2-18.0); LYMPHOCYTES % (AUTO) 20.4 % (20.0-45.0); MEAN CORPUSCULAR VOLUME 83 FL (80-99); NEUTROPHILS % (AUTO) 70.2 % (45.0-75.0); PLATELET COUNT 308 K/UL (150-450); RED BLOOD COUNT 3.87 M/UL (4.70-6.10); RED CELL DISTRIBUTION WIDTH 17.3 % (11.6-14.8); WHITE BLOOD COUNT 14.8 K/UL (4.8-10.8)
--- NOTE | 2019-04-14 08:07 | NUR ---
NURSE NOTES: pt. sleeping, pt on quality assurance monitor chassis, no signs of cardiac or respiratory distress at this time. Side rails padded. call light within reach. Pt has G-tube feeding. Bed is locked and in lowest position. Will continue to monitor pt and lab values.
[2019-04-14 08:10] VITALS: BP 94/62
[2019-04-14 09:26] LABS: ANION GAP 10 mmol/L (5-15); BLOOD UREA NITROGEN 13 mg/dL (7-18); CALCIUM 8.8 MG/DL (8.5-10.1); CARBON DIOXIDE 24 MMOL/L (21-32); CHLORIDE 111 MMOL/L (98-107); CREATININE 0.7 MG/DL (0.55-1.30); POTASSIUM 3.6 MMOL/L (3.5-5.1); SODIUM 145 MMOL/L (136-145)
--- NOTE | 2019-04-14 09:29 | General Progress Note ---
Assessment/Plan Problem List: (1) Pneumonia ICD Codes: J18.9 - Pneumonia, unspecified organism SNOMED: 547550955 (2) Sickle cell anemia ICD Codes: D57.1 - Sickle-cell disease without crisis SNOMED: 739523885 (3) Sepsis ICD Codes: A41.9 - Sepsis, unspecified organism SNOMED: 47902822 Status: unchanged Assessment/Plan: pt diet abx psyc neuro eval cbc bmp am Subjective Constitutional: Reports: weakness Allergies: Coded Allergies: No Known Allergies (Unverified , 04/11/19) All Systems: reviewed and negative except above Subjective sleepy calm Objective Last 24 Hour Vital Signs Date Time Temp Pulse Resp B/P (MAP) Pulse Ox O2 Delivery O2 Flow Rate FiO2 04/14/19 08:10 97.5 99 19 94/62 (73) 93 04/14/19 05:33 111 113/75 04/14/19 04:00 104 04/14/19 04:00 97.1 104 22 121/62 (81) 94 04/14/19 00:00 97.0 102 22 95/58 (70) 93 04/14/19 00:00 102 04/13/19 22:38 109 105/75 04/13/19 21:00 Room Air 04/13/19 20:00 110 04/13/19 20:00 97.8 110 19 103/69 (80) 90 04/13/19 16:00 98.1 119 19 114/77 (89) 94 04/13/19 16:00 114 04/13/19 14:33 110 116/76 04/13/19 12:00 110 04/13/19 12:00 99.0 114 16 116/76 (89) 94 Intake and Output 04/13/19 04/14/19 19:00 07:00 Intake Total 60 ml 860 ml Output Total 800 ml Balance -740 ml 860 ml Free Water 200 ml Tube Feeding 60 ml 660 ml Output Urine Total 800 ml Laboratory Tests 04/14/19 06:02: White Blood Count 14.8H, Red Blood Count 3.87L, Hemoglobin 11.2L, Hematocrit 32.0L, Mean Corpuscular Volume 83, Mean Corpuscular Hemoglobin 29.0, Mean Corpuscular Hemoglobin Concent 35.1, Red Cell Distribution Width 17.3H, Platelet Count 308, Mean Platelet Volume 6.4L, Neutrophils (%) (Auto) 70.2, Lymphocytes (%) (Auto) 20.4, Monocytes (%) (Auto) 6.0, Eosinophils (%) (Auto) 2.3, Basophils (%) (Auto) 1.1, Sodium Level 145, Potassium Level 3.6, Chloride Level 111H, Carbon Dioxide Level 24, Anion Gap 10, Blood Urea Nitrogen 13, Creatinine 0.7, Estimat Glomerular Filtration Rate > 60, Glucose Level 112H, Calcium Level 8.8 Height (Feet): 5 Height (Inches): 7.00 Weight (Pounds): 103 General Appearance: lethargic EENT: normal ENT inspection Neck: normal alignment Cardiovascular: normal peripheral pulses, normal rate, regular rhythm Respiratory/Chest: chest wall non-tender, lungs clear, normal breath sounds Abdomen: normal bowel sounds, non tender, soft Extremities: normal inspection Edema: no edema noted Arm (L), no edema noted Arm (R), no edema noted Leg (L), no edema noted Leg (R), no edema noted Pedal (L), no edema noted Pedal (R), no edema noted Generalized Neurologic: motor weakness Skin: normal pigmentation, warm/dry Marito Ortega DO Apr 14, 2019 09:29
[2019-04-14] MEDS: Donepezil 10mg tab GT SCH (09:47)
[2019-04-14] MEDS: Lactobacillus-GG tablet GT SCH (09:47)
[2019-04-14] MEDS: Multivitamins W/Minerals 15 ML UDC GT SCH (09:47)
[2019-04-14] MEDS: Azithromycin 250mg tab GT SCH (09:47)
[2019-04-14] MEDS: Heparin 5000 units/ml inj SUBQ SCH ×2 (09:50→21:12)
--- NOTE | 2019-04-14 10:58 | NUR ---
RD ASSESSMENT & RECOMMENDATIONS SEE CARE ACTIVITY FOR COMPLETE ASSESSMENT DAILY ESTIMATED NEEDS: Needs based on Severely underweight/ 45kg 35-40 kcals/kg 5622-5918 total kcals 1.5-2.0 g protein/kg 67-90 g total protein 25-35 mL/kg 5748-4884 total fluid mLs NUTRITION DIAGNOSIS: * Increased kcal/prot needs R/T severely underweight status and wt loss as evidenced by pt ~67% IBW, BMI of 15.5, w/ severe generalized wasting, possible significant wt loss of 50lbs/33% in <8 months as per report. 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 CURRENT TF: Jevity 1.2 @ 60ml/hr x 24 hrs ENTERAL NUTRITION RECOMMENDATIONS: Jevity 1.2 @ 60ml/hr x 24 hrs to provide 1440ml, 1728kcal, 80g prot, 1162ml free water * maintain current TF @goal rate of 60ml/hr x 24 hrs * HOB over 30 degrees * Without IVF, water flush of 100ml q 6 hrs ADDITIONAL RECOMMENDATIONS: * Calibrated bedscale wt for accurate CBW -> weekly wt monitoring given h/o wt loss, severely underweight * Monitor lytes daily, replete as needed * Monitor BGs, need for carb controlled TF
[2019-04-14 12:00] VITALS: BP 99/68
--- NOTE | 2019-04-14 12:26 | Pulmonology Progress Note ---
Assessment/Plan Problems: (1) Sepsis (2) Nosocomial pneumonia (3) Epilepsy (4) Hereditary cerebellar ataxia (5) Cavitary lung disease (6) Chronic tachycardia (7) BS-Czharuv-Xijqpg disease (8) Feeding by G-tube Assessment/Plan sputum has pseudomonas iv abx symptomatic treatment feeding by Gtube aspiration precaution Verapamil for chronic tachycardia, double the dose since, heart rate is low 100 sputum induction monitor heart rate prbc prn Hem< 8 dvt prophylaxis. reviewed echo: normal EF Subjective ROS Limited/Unobtainable: No Constitutional: Reports: no symptoms HEENT: Repors: no symptoms Respiratory: Reports: no symptoms Allergies: Coded Allergies: No Known Allergies (Unverified , 04/11/19) Objective Last 24 Hour Vital Signs Date Time Temp Pulse Resp B/P (MAP) Pulse Ox O2 Delivery O2 Flow Rate FiO2 04/14/19 08:10 97.5 99 19 94/62 (73) 93 04/14/19 08:00 99 04/14/19 05:33 111 113/75 04/14/19 04:00 104 04/14/19 04:00 97.1 104 22 121/62 (81) 94 04/14/19 00:00 97.0 102 22 95/58 (70) 93 04/14/19 00:00 102 04/13/19 22:38 109 105/75 04/13/19 21:00 Room Air 04/13/19 20:00 110 04/13/19 20:00 97.8 110 19 103/69 (80) 90 04/13/19 16:00 98.1 119 19 114/77 (89) 94 04/13/19 16:00 114 04/13/19 14:33 110 116/76 Intake and Output 04/13/19 04/14/19 19:00 07:00 Intake Total 60 ml 860 ml Output Total 800 ml Balance -740 ml 860 ml Free Water 200 ml Tube Feeding 60 ml 660 ml Output Urine Total 800 ml General Appearance: WD/WN, no acute distress HEENT: normocephalic, anicteric Respiratory/Chest: chest wall non-tender, lungs clear Cardiovascular: normal peripheral pulses, normal rate, regular rhythm Abdomen: normal bowel sounds, soft, non tender Genitourinary: normal external genitalia Extremities: no cyanosis 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 Microbiology Date/Time Source Procedure Growth Status 04/12/19 16:00 Blood Blood Culture - Preliminary NO GROWTH AFTER 24 HOURS Resulted 04/12/19 15:45 Blood Blood Culture - Preliminary NO GROWTH AFTER 24 HOURS Resulted Laboratory Tests 04/14/19 06:02: White Blood Count 14.8H, Red Blood Count 3.87L, Hemoglobin 11.2L, Hematocrit 32.0L, Mean Corpuscular Volume 83, Mean Corpuscular Hemoglobin 29.0, Mean Corpuscular Hemoglobin Concent 35.1, Red Cell Distribution Width 17.3H, Platelet Count 308, Mean Platelet Volume 6.4L, Neutrophils (%) (Auto) 70.2, Lymphocytes (%) (Auto) 20.4, Monocytes (%) (Auto) 6.0, Eosinophils (%) (Auto) 2.3, Basophils (%) (Auto) 1.1, Sodium Level 145, Potassium Level 3.6, Chloride Level 111H, Carbon Dioxide Level 24, Anion Gap 10, Blood Urea Nitrogen 13, Creatinine 0.7, Estimat Glomerular Filtration Rate > 60, Glucose Level 112H, Calcium Level 8.8 Current Medications Medications (Trade) Dose Ordered Sig/Kory Route PRN Reason Start Time Stop Time Status Last Admin Dose Admin Acetaminophen (Tylenol) 650 mg Q6H PRN GT Mild Pain/Temp > 100.5 04/11/19 23:00 05/11/19 22:59 04/12/19 20:20 Azithromycin (Zithromax) 500 mg DAILY GT 04/14/19 09:00 04/19/19 08:59 04/14/19 09:47 Cefepime HCl 1 gm/ Dextrose 55 ml @ 110 mls/hr Q12H IVPB 04/11/19 18:00 04/18/19 17:59 04/14/19 05:32 Dextrose 1,000 ml @ 75 mls/hr [id number] IV 04/13/19 12:00 05/13/19 11:59 04/14/19 05:50 Dextrose (Dextrose 50%) 25 ml Q30M PRN IV Hypoglycemia 04/13/19 16:30 05/13/19 16:29 Dextrose (Dextrose 50%) 50 ml Q30M PRN IV Hypoglycemia 04/13/19 16:30 05/13/19 16:29 Diltiazem HCl (Cardizem) 10 mg Q2H PRN IVP PULSE 04/12/19 08:00 05/12/19 07:59 04/12/19 17:27 Donepezil HCl (Aricept) 10 mg DAILY GT 04/12/19 09:00 05/12/19 08:59 04/14/19 09:47 Heparin Sodium (Porcine) (Heparin 5000 units/ml) 5,000 units EVERY 12 HOURS SUBQ 04/12/19 11:00 05/12/19 10:59 04/14/19 09:50 Insulin Aspart (NovoLOG) Q6HR SUBQ 04/13/19 18:00 05/13/19 17:59 04/14/19 05:54 Lactobacillus Acidophilus (Culturelle) 1 tab DAILY GT 04/12/19 09:00 05/12/19 08:59 04/14/19 09:47 Lansoprazole (Prevacid) 30 mg DAILY GT 04/12/19 09:00 05/12/19 08:59 04/14/19 09:47 Lorazepam (Ativan) 1 mg Q6H PRN GT For Anxiety 04/13/19 09:30 04/20/19 04:44 04/14/19 02:01 Morphine Sulfate (Morphine Sulfate) 1 mg Q4H PRN IVP For Pain 4-6 04/12/19 17:00 04/19/19 16:59 04/12/19 17:17 Morphine Sulfate (Morphine Sulfate) 2 mg Q4H PRN IVP Severe Pain (Pain Scale 7-10) 04/12/19 17:00 04/19/19 16:59 04/13/19 16:51 Multivitamins (Multivitamins W/ Minerals 15ml Liquid) 15 ml DAILY GT 04/12/19 09:00 05/12/19 08:59 04/14/19 09:47 Ondansetron HCl (Zofran) 4 mg Q6H PRN GT Nausea & Vomiting 04/12/19 01:45 05/12/19 01:44 Primidone (Mysoline) 100 mg QHS GT 04/12/19 21:00 05/12/19 20:59 04/13/19 20:31 Thiamine HCl 500 mg/Dextrose 60 ml @ 112 mls/hr Q8HR IVPB 04/12/19 14:00 04/14/19 13:59 04/14/19 06:17 Vancomycin HCl (Vanco rx to dose) 1 ea DAILY PRN MISC Per rx protocol 04/11/19 16:30 05/11/19 16:29 Vancomycin/Sodium Chloride 275 ml @ 137.5 mls/ hr Q12HR@0600,1800 IVPB 04/13/19 18:00 04/18/19 17:59 04/14/19 07:05 Verapamil HCl (Calan) 80 mg EVERY 8 HOURS GT 04/13/19 14:00 05/11/19 21:59 04/14/19 05:33 Carlos Sauer MD Apr 14, 2019 12:26
--- NOTE | 2019-04-14 13:49 | NUR ---
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 97.0 HR 104 RR 22 B/P 95/58 WBC 14.8 IS: VANCO IV IVF D5@ 75ML/HR THIAMINE IV CEFEPIME IV ZITHROMAX PO TELE STATUS
[2019-04-14 16:00] VITALS: BP 114/74
--- NOTE | 2019-04-14 16:44 | Infectious Diseases Prog Note ---
Assessment/Plan Assessment/Plan Assessment: Sepsis PNA -CXR: Left basilar atelectasis and possible consolidation -sp cx PsA (ramirez S) -influenza sc neg -u/a neg Fever; improving Leukocytosis; improving Gram positive bacteremia- contaminant -04/11 Bcx / CONS; 04/12 Bcx NTD HTN dysphagia s/p GT cerebellar ataxia seizure disorder Alzheimer's dementia SNF resident Plan: -D/c mpiric IV Vancomycin #4 -Continue Cefepime #08/07- for PsA PNA -Continue Azithromycin #4/5 -04/11 SP Ceftriaxone x1 -f/u cx -Monitor CBC/CMP, temperatures -GT care -aspiration precautions -f/u repeat Bcx x2 Thank you for consulting [facility]. Will continue to follow along with you. Discussed with RN. Subjective Allergies: Coded Allergies: No Known Allergies (Unverified , 04/11/19) Subjective afebrile in>48hrs repeat Bcx NTD Objective Vital Signs Last 24 Hour Vital Signs Date Time Temp Pulse Resp B/P (MAP) Pulse Ox O2 Delivery O2 Flow Rate FiO2 04/14/19 16:00 99.5 103 15 114/74 (87) 96 04/14/19 15:54 105 109/66 04/14/19 12:00 98.9 96 19 99/68 (78) 95 04/14/19 09:00 Room Air 04/14/19 08:10 97.5 99 19 94/62 (73) 93 04/14/19 08:00 99 04/14/19 05:33 111 113/75 04/14/19 04:00 104 04/14/19 04:00 97.1 104 22 121/62 (81) 94 04/14/19 00:00 97.0 102 22 95/58 (70) 93 04/14/19 00:00 102 04/13/19 22:38 109 105/75 04/13/19 21:00 Room Air 04/13/19 20:00 110 04/13/19 20:00 97.8 110 19 103/69 (80) 90 Height (Feet): 5 Height (Inches): 7.00 Weight (Pounds): 103 Objective GENERAL: Calm in bed, lethargic, confused, and nonverbal. VITAL SIGNS: Temperature 101, pulse 98, respirations 21, and blood pressure 108/74. CARDIOVASCULAR: No murmurs. LUNGS: Poor air exchange. ABDOMEN: Bowel sounds distant. EXTREMITIES: No cyanosis, clubbing, or edema. NEUROLOGIC: The patient is flaccid in bed, not following directions. Microbiology Date/Time Source Procedure Growth Status 04/12/19 16:00 Blood Blood Culture - Preliminary NO GROWTH AFTER 24 HOURS Resulted 04/12/19 15:45 Blood Blood Culture - Preliminary NO GROWTH AFTER 24 HOURS Resulted Laboratory Tests Test 04/14/19 06:02 White Blood Count 14.8 K/UL (4.8-10.8) H Red Blood Count 3.87 M/UL (4.70-6.10) L Hemoglobin 11.2 G/DL (14.2-18.0) L Hematocrit 32.0 % (42.0-52.0) L Mean Corpuscular Volume 83 FL (80-99) Mean Corpuscular Hemoglobin 29.0 PG (27.0-31.0) Mean Corpuscular Hemoglobin Concent 35.1 G/DL (32.0-36.0) Red Cell Distribution Width 17.3 % (11.6-14.8) H Platelet Count 308 K/UL (150-450) Mean Platelet Volume 6.4 FL (6.5-10.1) L Neutrophils (%) (Auto) 70.2 % (45.0-75.0) Lymphocytes (%) (Auto) 20.4 % (20.0-45.0) Monocytes (%) (Auto) 6.0 % (1.0-10.0) Eosinophils (%) (Auto) 2.3 % (0.0-3.0) Basophils (%) (Auto) 1.1 % (0.0-2.0) Sodium Level 145 MMOL/L (136-145) Potassium Level 3.6 MMOL/L (3.5-5.1) Chloride Level 111 MMOL/L (98-107) H Carbon Dioxide Level 24 MMOL/L (21-32) Anion Gap 10 mmol/L (5-15) Blood Urea Nitrogen 13 mg/dL (7-18) Creatinine 0.7 MG/DL (0.55-1.30) Estimat Glomerular Filtration Rate > 60 mL/min (>60) Glucose Level 112 MG/DL (74-106) H Calcium Level 8.8 MG/DL (8.5-10.1) Current Medications Medications (Trade) Dose Ordered Sig/Kory Route PRN Reason Start Time Stop Time Status Last Admin Dose Admin Acetaminophen (Tylenol) 650 mg Q6H PRN GT Mild Pain/Temp > 100.5 04/11/19 23:00 05/11/19 22:59 04/12/19 20:20 Azithromycin (Zithromax) 500 mg DAILY GT 04/14/19 09:00 04/19/19 08:59 04/14/19 09:47 Cefepime HCl 1 gm/ Dextrose 55 ml @ 110 mls/hr Q12H IVPB 04/11/19 18:00 04/18/19 17:59 04/14/19 05:32 Dextrose 1,000 ml @ 75 mls/hr [id number] IV 04/13/19 12:00 05/13/19 11:59 04/14/19 05:50 Dextrose (Dextrose 50%) 25 ml Q30M PRN IV Hypoglycemia 04/13/19 16:30 05/13/19 16:29 Dextrose (Dextrose 50%) 50 ml Q30M PRN IV Hypoglycemia 04/13/19 16:30 05/13/19 16:29 Diltiazem HCl (Cardizem) 10 mg Q2H PRN IVP PULSE 04/12/19 08:00 05/12/19 07:59 04/12/19 17:27 Donepezil HCl (Aricept) 10 mg DAILY GT 04/12/19 09:00 05/12/19 08:59 04/14/19 09:47 Heparin Sodium (Porcine) (Heparin 5000 units/ml) 5,000 units EVERY 12 HOURS SUBQ 04/12/19 11:00 05/12/19 10:59 04/14/19 09:50 Insulin Aspart (NovoLOG) Q6HR SUBQ 04/13/19 18:00 05/13/19 17:59 04/14/19 12:57 Lactobacillus Acidophilus (Culturelle) 1 tab DAILY GT 04/12/19 09:00 05/12/19 08:59 04/14/19 09:47 Lansoprazole (Prevacid) 30 mg DAILY GT 04/12/19 09:00 05/12/19 08:59 04/14/19 09:47 Lorazepam (Ativan) 1 mg Q6H PRN GT For Anxiety 04/13/19 09:30 04/20/19 04:44 04/14/19 02:01 Morphine Sulfate (Morphine Sulfate) 1 mg Q4H PRN IVP For Pain 4-6 04/12/19 17:00 04/19/19 16:59 04/12/19 17:17 Morphine Sulfate (Morphine Sulfate) 2 mg Q4H PRN IVP Severe Pain (Pain Scale 7-10) 04/12/19 17:00 04/19/19 16:59 04/13/19 16:51 Multivitamins (Multivitamins W/ Minerals 15ml Liquid) 15 ml DAILY GT 04/12/19 09:00 05/12/19 08:59 04/14/19 09:47 Ondansetron HCl (Zofran) 4 mg Q6H PRN GT Nausea & Vomiting 04/12/19 01:45 05/12/19 01:44 Primidone (Mysoline) 100 mg QHS GT 04/12/19 21:00 05/12/19 20:59 04/13/19 20:31 Vancomycin HCl (Vanco rx to dose) 1 ea DAILY PRN MISC Per rx protocol 04/11/19 16:30 05/11/19 16:29 Vancomycin/Sodium Chloride 275 ml @ 137.5 mls/ hr Q12HR@0600,1800 IVPB 04/13/19 18:00 04/18/19 17:59 04/14/19 07:05 Verapamil HCl (Calan) 80 mg EVERY 8 HOURS GT 04/13/19 14:00 05/11/19 21:59 04/14/19 15:54 Shirley Cadena M.D. Apr 14, 2019 16:44
--- NOTE | 2019-04-14 16:45 | Progress Note ---
DATE: 04/14/2019 SUBJECTIVE: The patient is a 43-year-old male patient who was admitted to [facility] , but he has confusion, disorganized thought process, mood lability, decline in cognition below his baseline. That is why, his attending has requested daily psychiatric consultation. He has altered mental status, confusion. MENTAL STATUS EXAMINATION: This is a 43-year-old male. Appearance is disheveled. Attitude, irritable and agitated. Affect, guarded and restricted. Intellect poor. Mood, depressed and anxious. Motor activity, psychomotor agitation. Insight and judgment is poor. DIAGNOSIS: Major depressive disorder, mild, recurrent with psychotic features. PLAN: Treat him with Aricept 10 mg per G-tube nightly and Ativan 1 mg every 6 hours p.r.n. anxiety and agitation. Provide him with 20 minutes of cognitive behavioral therapy to help him identify his automatic negative thoughts and help to convert negative thoughts to more positive thoughts to reduce depression, anxiety, and . A 20 minutes of behavioral management was provided. Chart reviewed. Discussed with the staff. Seen and assessed in his room. Osbaldo Bird M.D. DR: JUAN JOB#: [id number] CC:
--- NOTE | 2019-04-14 18:32 | NUR ---
NURSE NOTES: applied cooling measures for pt. T99.5.
--- NOTE | 2019-04-14 19:25 | NUR ---
HAND-OFF: Report given to Julio/EDUAR, pt in stable condition.
--- NOTE | 2019-04-14 19:26 | NUR ---
NURSE NOTES: Received pt from EDUAR Vasquez. Pt is resting in bed with HOB elevated >30 degrees, offlaoded with pillows, and on p200 mattress. pt eyes open and gives eye contact when spoken to. pt appears anxious a.e.b. occasional groan, facial grimace, and slight squirming. Ativan given. Garcia catheter intact and draining. g-tube intact and patent running jevita 1.2 at goal of 60ML/HR. Bed locked in lowest position, bed alarm on, call light within reach. Will continue with plan of care.
[2019-04-14 20:00] VITALS: BP 111/87
[2019-04-15] VITALS: BP 91/62
[2019-04-15] MEDS: LORazepam 1mg tab GT PRN (01:21)
[2019-04-15] MEDS: NovoLOG Insulin Flexpen SUBQ SCH ×4 (01:21→17:56)
[2019-04-15 04:00] VITALS: BP 101/73
[2019-04-15] MEDS: Cefepime HCl 1 GM in D5W 55 ML IVPB SCH ×2 (05:49→17:45)
[2019-04-15] MEDS: Verapamil 80mg tab GT SCH ×3 (05:49→22:37)
[2019-04-15 05:57] LABS: BASOPHILS % (AUTO) 0.8 % (0.0-2.0); EOSINOPHILS % (AUTO) 5.4 % (0.0-3.0); HEMATOCRIT 31.8 % (42.0-52.0); HEMOGLOBIN 11.2 G/DL (14.2-18.0); MEAN CORPUSCULAR VOLUME 82 FL (80-99); MONOCYTES % (AUTO) 6.6 % (1.0-10.0); NEUTROPHILS % (AUTO) 67.2 % (45.0-75.0); PLATELET COUNT 322 K/UL (150-450); RED BLOOD COUNT 3.86 M/UL (4.70-6.10); RED CELL DISTRIBUTION WIDTH 17.2 % (11.6-14.8); WHITE BLOOD COUNT 11.8 K/UL (4.8-10.8)
[2019-04-15 06:09] LABS: ANION GAP 8 mmol/L (5-15); BLOOD UREA NITROGEN 11 mg/dL (7-18); CALCIUM 8.7 MG/DL (8.5-10.1); CARBON DIOXIDE 27 MMOL/L (21-32); CHLORIDE 107 MMOL/L (98-107); CREATININE 0.6 MG/DL (0.55-1.30); POTASSIUM 3.7 MMOL/L (3.5-5.1); SODIUM 142 MMOL/L (136-145)
[2019-04-15] MEDS: Vancomycin 1.5gm/NS Premix q24h IVPB SCH ×2 (06:45→18:30)
--- NOTE | 2019-04-15 07:10 | NUR ---
HAND-OFF: Report given to EDUAR Vasquez. Pt resting in bed in no distress. Endorsed plan of care.
--- NOTE | 2019-04-15 07:23 | Pulmonology Progress Note ---
Assessment/Plan Problems: (1) Sepsis (2) Nosocomial pneumonia (3) Epilepsy (4) Hereditary cerebellar ataxia (5) Cavitary lung disease (6) Chronic tachycardia (7) ZY-Cziztpb-Vetzzx disease (8) Feeding by G-tube Assessment/Plan sputum has pseudomonas iv abx symptomatic treatment feeding by Gtube aspiration precaution Verapamil for chronic tachycardia, double the dose since, heart rate is low 100 monitor heart rate prbc prn Hem< 8 dvt prophylaxis. reviewed echo: normal EF Subjective ROS Limited/Unobtainable: Yes Allergies: Coded Allergies: No Known Allergies (Unverified , 04/11/19) Objective Last 24 Hour Vital Signs Date Time Temp Pulse Resp B/P (MAP) Pulse Ox O2 Delivery O2 Flow Rate FiO2 04/15/19 05:49 91 101/76 04/15/19 04:00 98.1 90 20 101/73 (82) 96 04/15/19 04:00 89 04/15/19 00:00 83 04/15/19 00:00 98.1 81 18 91/62 (72) 96 04/14/19 22:35 94 111/79 04/14/19 21:00 Room Air 04/14/19 20:00 98.5 87 18 111/87 (95) 96 04/14/19 20:00 87 04/14/19 16:00 99.5 103 15 114/74 (87) 96 04/14/19 16:00 99 04/14/19 15:54 105 109/66 04/14/19 12:00 96 04/14/19 12:00 98.9 96 19 99/68 (78) 95 04/14/19 09:00 Room Air 04/14/19 08:10 97.5 99 19 94/62 (73) 93 04/14/19 08:00 99 Intake and Output 04/14/19 04/15/19 19:00 07:00 Output Total 775 ml 1200 ml Balance -775 ml -1200 ml Output Urine Total 775 ml 1200 ml Objective General Appearance: no acute distress HEENT: normocephalic, anicteric Respiratory/Chest: chest wall non-tender, lungs clear Cardiovascular: normal peripheral pulses, normal rate, regular rhythm Abdomen: normal bowel sounds, soft, non tender Genitourinary: normal external genitalia Extremities: no cyanosis 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 Microbiology Date/Time Source Procedure Growth Status 04/12/19 16:00 Blood Blood Culture - Preliminary NO GROWTH AFTER 48 HOURS Resulted 04/12/19 15:45 Blood Blood Culture - Preliminary NO GROWTH AFTER 48 HOURS Resulted Laboratory Tests 04/15/19 05:12: White Blood Count 11.8H, Red Blood Count 3.86L, Hemoglobin 11.2L, Hematocrit 31.8L, Mean Corpuscular Volume 82, Mean Corpuscular Hemoglobin 29.0, Mean Corpuscular Hemoglobin Concent 35.2, Red Cell Distribution Width 17.2H, Platelet Count 322, Mean Platelet Volume 7.3, Neutrophils (%) (Auto) 67.2, Lymphocytes (%) (Auto) 20.0, Monocytes (%) (Auto) 6.6, Eosinophils (%) (Auto) 5.4H, Basophils (%) (Auto) 0.8, Sodium Level 142, Potassium Level 3.7, Chloride Level 107, Carbon Dioxide Level 27, Anion Gap 8, Blood Urea Nitrogen 11, Creatinine 0.6, Estimat Glomerular Filtration Rate > 60, Glucose Level 131H, Calcium Level 8.7, Vancomycin Level Trough 17.3H Current Medications Medications (Trade) Dose Ordered Sig/Kory Route PRN Reason Start Time Stop Time Status Last Admin Dose Admin Acetaminophen (Tylenol) 650 mg Q6H PRN GT Mild Pain/Temp > 100.5 04/11/19 23:00 05/11/19 22:59 04/12/19 20:20 Azithromycin (Zithromax) 500 mg DAILY GT 04/14/19 09:00 04/19/19 08:59 04/14/19 09:47 Cefepime HCl 1 gm/ Dextrose 55 ml @ 110 mls/hr Q12H IVPB 04/11/19 18:00 04/18/19 17:59 04/15/19 05:49 Dextrose 1,000 ml @ 75 mls/hr [id number] IV 04/13/19 12:00 05/13/19 11:59 04/14/19 22:40 Dextrose (Dextrose 50%) 25 ml Q30M PRN IV Hypoglycemia 04/13/19 16:30 05/13/19 16:29 Dextrose (Dextrose 50%) 50 ml Q30M PRN IV Hypoglycemia 04/13/19 16:30 05/13/19 16:29 Diltiazem HCl (Cardizem) 10 mg Q2H PRN IVP PULSE 04/12/19 08:00 05/12/19 07:59 04/12/19 17:27 Donepezil HCl (Aricept) 10 mg DAILY GT 04/12/19 09:00 05/12/19 08:59 04/14/19 09:47 Heparin Sodium (Porcine) (Heparin 5000 units/ml) 5,000 units EVERY 12 HOURS SUBQ 04/12/19 11:00 05/12/19 10:59 04/14/19 21:12 Insulin Aspart (NovoLOG) Q6HR SUBQ 04/13/19 18:00 05/13/19 17:59 04/15/19 01:21 Lactobacillus Acidophilus (Culturelle) 1 tab DAILY GT 04/12/19 09:00 05/12/19 08:59 04/14/19 09:47 Lansoprazole (Prevacid) 30 mg DAILY GT 04/12/19 09:00 05/12/19 08:59 04/14/19 09:47 Lorazepam (Ativan) 1 mg Q6H PRN GT For Anxiety 04/13/19 09:30 04/20/19 04:44 04/15/19 01:21 Morphine Sulfate (Morphine Sulfate) 1 mg Q4H PRN IVP For Pain 4-6 04/12/19 17:00 04/19/19 16:59 04/12/19 17:17 Morphine Sulfate (Morphine Sulfate) 2 mg Q4H PRN IVP Severe Pain (Pain Scale 7-10) 04/12/19 17:00 04/19/19 16:59 04/13/19 16:51 Multivitamins (Multivitamins W/ Minerals 15ml Liquid) 15 ml DAILY GT 04/12/19 09:00 05/12/19 08:59 04/14/19 09:47 Ondansetron HCl (Zofran) 4 mg Q6H PRN GT Nausea & Vomiting 04/12/19 01:45 05/12/19 01:44 Primidone (Mysoline) 100 mg QHS GT 04/12/19 21:00 05/12/19 20:59 04/14/19 21:11 Vancomycin HCl (Vanco rx to dose) 1 ea DAILY PRN MISC Per rx protocol 04/11/19 16:30 05/11/19 16:29 Vancomycin/Sodium Chloride 275 ml @ 137.5 mls/ hr Q12HR@0600,1800 IVPB 04/13/19 18:00 04/18/19 17:59 04/15/19 06:45 Verapamil HCl (Calan) 80 mg EVERY 8 HOURS GT 04/13/19 14:00 05/11/19 21:59 04/15/19 05:49 Carlos Sauer MD Apr 15, 2019 07:22
[2019-04-15 08:00] VITALS: BP 90/64
--- NOTE | 2019-04-15 08:00 | NUR ---
NURSE NOTES: pt. resting in bed, pt on hall monitor, no signs of cardiac or respiratory distress at this time. Side rails padded. call light within reach. Pt has G-tube feeding. Bed is locked and in lowest position. pt has key patent. Will continue to monitor pt and lab values.
--- NOTE | 2019-04-15 09:17 | General Progress Note ---
Assessment/Plan Problem List: (1) Pneumonia ICD Codes: J18.9 - Pneumonia, unspecified organism SNOMED: 967965819 (2) Sickle cell anemia ICD Codes: D57.1 - Sickle-cell disease without crisis SNOMED: 638514652 (3) Sepsis ICD Codes: A41.9 - Sepsis, unspecified organism SNOMED: 26963686 Status: unchanged Assessment/Plan: pt diet abx psyc neuro eval cbc bmp am Subjective Constitutional: Reports: weakness Allergies: Coded Allergies: No Known Allergies (Unverified , 04/11/19) All Systems: reviewed and negative except above Subjective sleepy calm Objective Last 24 Hour Vital Signs Date Time Temp Pulse Resp B/P (MAP) Pulse Ox O2 Delivery O2 Flow Rate FiO2 04/15/19 08:00 98.4 80 18 90/64 (73) 96 04/15/19 05:49 91 101/76 04/15/19 04:00 98.1 90 20 101/73 (82) 96 04/15/19 04:00 89 04/15/19 00:00 83 04/15/19 00:00 98.1 81 18 91/62 (72) 96 04/14/19 22:35 94 111/79 04/14/19 21:00 Room Air 04/14/19 20:00 98.5 87 18 111/87 (95) 96 04/14/19 20:00 87 04/14/19 16:00 99.5 103 15 114/74 (87) 96 04/14/19 16:00 99 04/14/19 15:54 105 109/66 04/14/19 12:00 96 04/14/19 12:00 98.9 96 19 99/68 (78) 95 Intake and Output 04/14/19 04/15/19 19:00 07:00 Output Total 775 ml 1200 ml Balance -775 ml -1200 ml Output Urine Total 775 ml 1200 ml Laboratory Tests 04/15/19 05:12: White Blood Count 11.8H, Red Blood Count 3.86L, Hemoglobin 11.2L, Hematocrit 31.8L, Mean Corpuscular Volume 82, Mean Corpuscular Hemoglobin 29.0, Mean Corpuscular Hemoglobin Concent 35.2, Red Cell Distribution Width 17.2H, Platelet Count 322, Mean Platelet Volume 7.3, Neutrophils (%) (Auto) 67.2, Lymphocytes (%) (Auto) 20.0, Monocytes (%) (Auto) 6.6, Eosinophils (%) (Auto) 5.4H, Basophils (%) (Auto) 0.8, Sodium Level 142, Potassium Level 3.7, Chloride Level 107, Carbon Dioxide Level 27, Anion Gap 8, Blood Urea Nitrogen 11, Creatinine 0.6, Estimat Glomerular Filtration Rate > 60, Glucose Level 131H, Calcium Level 8.7, Vancomycin Level Trough 17.3H Height (Feet): 5 Height (Inches): 7.00 Weight (Pounds): 103 General Appearance: lethargic EENT: normal ENT inspection Neck: normal alignment Cardiovascular: normal peripheral pulses, normal rate, regular rhythm Respiratory/Chest: chest wall non-tender, lungs clear, normal breath sounds Abdomen: normal bowel sounds, non tender, soft Extremities: normal inspection Edema: no edema noted Arm (L), no edema noted Arm (R), no edema noted Leg (L), no edema noted Leg (R), no edema noted Pedal (L), no edema noted Pedal (R), no edema noted Generalized Neurologic: motor weakness Skin: normal pigmentation, warm/dry Marito Ortega DO Apr 15, 2019 09:17
[2019-04-15] MEDS: Lactobacillus-GG tablet GT SCH (09:22)
[2019-04-15] MEDS: Donepezil 10mg tab GT SCH (09:22)
[2019-04-15] MEDS: Azithromycin 250mg tab GT SCH (09:22)
[2019-04-15] MEDS: Multivitamins W/Minerals 15 ML UDC GT SCH (09:23)
[2019-04-15] MEDS: Heparin 5000 units/ml inj SUBQ SCH ×2 (09:24→22:40)
[2019-04-15 12:00] VITALS: BP 99/65
[2019-04-15] MEDS ORDERED: Tubing IV Secondary IV ONE (14:12)
[2019-04-15] MEDS ORDERED: NS 275ml ONE (14:12)
[2019-04-15] MEDS ORDERED: NS Irrig 1000ml ONE (14:12)
[2019-04-15 16:00] VITALS: BP 119/88
--- NOTE | 2019-04-15 17:45 | Progress Note ---
DATE: 04/15/2019 NOTE: "POOR AUDIO QUALITY" SUBJECTIVE: He is a 43-year-old male patient. This is a male patient who continues to have sepsis. He has altered mental status, confusion, and decline in cognition below his baseline. MENTAL STATUS EXAMINATION: A 43-year-old male. Appearance is disheveled. Attitude, irritable and agitated. Affect, guarded and restricted. Intellect poor. Mood, depressed and anxious. Motor activity, psychomotor agitation. Attention span is poor. Orientation x2. Speech is pressured. Thought process, disorganized and illogical. Insight and judgment is poor. DIAGNOSIS: Major depressive disorder, mild, recurrent, with psychotic features. PLAN: Treat him with Aricept 10 mg nightly and Ativan 1 mg every 6 hours p.r.n. anxiety or agitation. Twenty minutes of behavioral management. Chart reviewed. Discussed with staff. Seen and assessed in his room. Osbaldo Bird M.D. DR: Dario JOB#: [id number] CC:
--- NOTE | 2019-04-15 18:00 | Progress Note ---
DATE: 04/15/2019 NOTE: "POOR AUDIO QUALITY" SUBJECTIVE: He is a 43-year-old male patient. This is a male patient who continues to have sepsis. He has altered mental status, confusion, and decline in cognition below his baseline. MENTAL STATUS EXAMINATION: A 43-year-old male. Appearance is disheveled. Attitude, irritable and agitated. Affect, guarded and restricted. Intellect poor. Mood, depressed and anxious. Motor activity, psychomotor agitation. Attention span is poor. Orientation x2. Speech is pressured. Thought process, disorganized and illogical. Insight and judgment is poor. DIAGNOSIS: Major depressive disorder, mild, recurrent, with psychotic features. PLAN: Treat him with Aricept 10 mg nightly and Ativan 1 mg every 6 hours p.r.n. anxiety or agitation. Provided him with 20 minutes of behavioral management. Chart reviewed. Discussed with staff. Seen and assessed at bedside. Osbaldo Bird M.D. DR: Dario JOB#: [id number] CC:
[2019-04-15 20:00] VITALS: BP 143/93
--- NOTE | 2019-04-15 20:15 | NUR ---
HAND-OFF: Report given to Randal/geno.
--- NOTE | 2019-04-15 20:16 | NUR ---
NURSE NOTES: Got report from Christina WITT. Pt in stable condition. Denies any pain. No s/s of distress or discomfort noted. Pt resting in bed comfortably. Bed in low and locked position, call light within reach, bedside table within reach. Continue to monitor.
[2019-04-16] VITALS (7 sets, daily range): BP systolic 106–156; BP diastolic 73–113
[2019-04-16] MEDS: Morphine Sulfate 2mg/ml Inj(IV/IM USE ONLY) IVP PRN ×3 (00:08→14:44)
[2019-04-16] MEDS: NovoLOG Insulin Flexpen SUBQ SCH ×4 (00:16→21:08)
[2019-04-16] MEDS: Cefepime HCl 1 GM in D5W 55 ML IVPB SCH ×2 (06:00→18:00)
[2019-04-16] MEDS: Verapamil 80mg tab GT SCH ×3 (06:00→21:08)
--- NOTE | 2019-04-16 07:40 | NUR ---
HAND-OFF: Report given to Christina WITT.
[2019-04-16] MEDS ORDERED: Vancomycin 1.5gm/NS Premix q24h IVPB SCH (08:00)
--- NOTE | 2019-04-16 08:02 | Pulmonology Progress Note ---
Assessment/Plan Problems: (1) Sepsis (2) Nosocomial pneumonia (3) Epilepsy (4) Hereditary cerebellar ataxia (5) Cavitary lung disease (6) Chronic tachycardia (7) LY-Lnmtoaa-Xlrtyj disease (8) Feeding by G-tube Assessment/Plan sputum has pseudomonas, pansensitive iv abx symptomatic treatment feeding by Gtube aspiration precaution Verapamil for chronic tachycardia, double the dose since, heart rate is low 100 monitor heart rate prbc prn Hem< 8 dvt prophylaxis. reviewed echo: normal EF Subjective ROS Limited/Unobtainable: No Constitutional: Reports: no symptoms HEENT: Repors: no symptoms Allergies: Coded Allergies: No Known Allergies (Unverified , 04/11/19) Objective Last 24 Hour Vital Signs Date Time Temp Pulse Resp B/P (MAP) Pulse Ox O2 Delivery O2 Flow Rate FiO2 04/16/19 06:00 106 106/73 04/16/19 04:00 97.0 106 19 106/73 (84) 96 04/16/19 04:00 101 04/16/19 00:38 98.2 04/16/19 00:00 97.5 104 20 137/93 (108) 98 04/16/19 00:00 103 04/15/19 22:37 99 143/93 04/15/19 21:00 Room Air 04/15/19 20:00 97.7 99 20 143/93 (110) 98 04/15/19 20:00 102 04/15/19 16:03 101 109/75 04/15/19 16:00 98 04/15/19 16:00 98.2 102 20 119/88 (98) 95 04/15/19 13:16 Room Air 04/15/19 12:00 93 04/15/19 12:00 97.8 89 18 99/65 (76) 95 04/15/19 09:00 Room Air Intake and Output 04/15/19 04/16/19 19:00 07:00 Output Total 1000 ml Balance -1000 ml Output Urine Total 1000 ml Objective General Appearance: no acute distress HEENT: normocephalic, anicteric Respiratory/Chest: chest wall non-tender, rhonchi Cardiovascular: normal peripheral pulses, normal rate, regular rhythm Abdomen: normal bowel sounds, soft, non tender Genitourinary: normal external genitalia Extremities: no cyanosis Laboratory Tests 04/16/19 05:47: White Blood Count [Pending], Red Blood Count [Pending], Hemoglobin [Pending], Hematocrit [Pending], Mean Corpuscular Volume [Pending], Mean Corpuscular Hemoglobin [Pending], Mean Corpuscular Hemoglobin Concent [Pending], Red Cell Distribution Width [Pending], Platelet Count [Pending], Mean Platelet Volume [ Pending], Neutrophils (%) (Auto) [Pending], Lymphocytes (%) (Auto) [Pending], Monocytes (%) (Auto) [Pending], Eosinophils (%) (Auto) [Pending], Basophils (%) (Auto) [Pending], Sodium Level [Pending], Potassium Level [Pending], Chloride Level [Pending], Carbon Dioxide Level [Pending], Blood Urea Nitrogen [Pending], Creatinine [Pending], Estimat Glomerular Filtration Rate [Pending], Glucose Level [Pending], Calcium Level [Pending] Current Medications Medications (Trade) Dose Ordered Sig/Kory Route PRN Reason Start Time Stop Time Status Last Admin Dose Admin Acetaminophen (Tylenol) 650 mg Q6H PRN GT Mild Pain/Temp > 100.5 04/11/19 23:00 05/11/19 22:59 04/12/19 20:20 Azithromycin (Zithromax) 500 mg DAILY GT 04/14/19 09:00 04/19/19 08:59 04/15/19 09:22 Cefepime HCl 1 gm/ Dextrose 55 ml @ 110 mls/hr Q12H IVPB 04/11/19 18:00 04/18/19 17:59 04/16/19 06:00 Dextrose 1,000 ml @ 75 mls/hr [id number] IV 04/13/19 12:00 05/13/19 11:59 04/16/19 06:45 Dextrose (Dextrose 50%) 25 ml Q30M PRN IV Hypoglycemia 04/13/19 16:30 05/13/19 16:29 Dextrose (Dextrose 50%) 50 ml Q30M PRN IV Hypoglycemia 04/13/19 16:30 05/13/19 16:29 Diltiazem HCl (Cardizem) 10 mg Q2H PRN IVP PULSE 04/12/19 08:00 05/12/19 07:59 04/12/19 17:27 Donepezil HCl (Aricept) 10 mg DAILY GT 04/12/19 09:00 05/12/19 08:59 04/15/19 09:22 Heparin Sodium (Porcine) (Heparin 5000 units/ml) 5,000 units EVERY 12 HOURS SUBQ 04/12/19 11:00 05/12/19 10:59 04/15/19 22:40 Insulin Aspart (NovoLOG) Q6HR SUBQ 04/13/19 18:00 05/13/19 17:59 04/16/19 00:16 Lactobacillus Acidophilus (Culturelle) 1 tab DAILY GT 04/12/19 09:00 05/12/19 08:59 04/15/19 09:22 Lansoprazole (Prevacid) 30 mg DAILY GT 04/12/19 09:00 05/12/19 08:59 04/15/19 09:21 Lorazepam (Ativan) 1 mg Q6H PRN GT For Anxiety 04/13/19 09:30 04/20/19 04:44 04/15/19 01:21 Morphine Sulfate (Morphine Sulfate) 1 mg Q4H PRN IVP For Pain 4-6 04/12/19 17:00 04/19/19 16:59 04/12/19 17:17 Morphine Sulfate (Morphine Sulfate) 2 mg Q4H PRN IVP Severe Pain (Pain Scale 7-10) 04/12/19 17:00 04/19/19 16:59 04/16/19 00:08 Multivitamins (Multivitamins W/ Minerals 15ml Liquid) 15 ml DAILY GT 04/12/19 09:00 05/12/19 08:59 04/15/19 09:23 Ondansetron HCl (Zofran) 4 mg Q6H PRN GT Nausea & Vomiting 04/12/19 01:45 05/12/19 01:44 Primidone (Mysoline) 100 mg QHS GT 04/12/19 21:00 05/12/19 20:59 04/15/19 22:36 Vancomycin HCl (Vanco rx to dose) 1 ea DAILY PRN MISC Per rx protocol 04/11/19 16:30 05/11/19 16:29 Vancomycin/Sodium Chloride 275 ml @ 137.5 mls/ hr 0800,2000 IVPB 04/16/19 08:00 04/18/19 17:59 Verapamil HCl (Calan) 80 mg EVERY 8 HOURS GT 04/13/19 14:00 05/11/19 21:59 04/16/19 06:00 Carlos Sauer MD Apr 16, 2019 08:02
[2019-04-16 08:13] LABS: HEMATOCRIT 34.7 % (42.0-52.0); HEMOGLOBIN 12.3 G/DL (14.2-18.0); MEAN CORPUSCULAR VOLUME 82 FL (80-99); PLATELET COUNT 386 K/UL (150-450); RED BLOOD COUNT 4.22 M/UL (4.70-6.10); RED CELL DISTRIBUTION WIDTH 17.3 % (11.6-14.8); WHITE BLOOD COUNT 19.2 K/UL (4.8-10.8)
--- NOTE | 2019-04-16 08:19 | NUR ---
NURSE NOTES: pt in bed awake. IV was restarted on L hand 22g. R F/A Iv was infiltrated. 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 Bed is locked and in lowest position. Call light is within reach. will continue to monitor pt and lab values. Pt has [employer] and is patent. Pt has a patent Whodini as well.
[2019-04-16 08:23] LABS: ANION GAP 8 mmol/L (5-15); BLOOD UREA NITROGEN 12 mg/dL (7-18); CALCIUM 9.8 MG/DL (8.5-10.1); CARBON DIOXIDE 27 MMOL/L (21-32); CHLORIDE 106 MMOL/L (98-107); CREATININE 0.5 MG/DL (0.55-1.30); POTASSIUM 4.6 MMOL/L (3.5-5.1); SODIUM 141 MMOL/L (136-145)
--- NOTE | 2019-04-16 08:30 | NUR ---
NURSE NOTES: pt IV was infiltrated.
[2019-04-16] MEDS: Heparin 5000 units/ml inj SUBQ SCH ×2 (09:00→21:00)
--- NOTE | 2019-04-16 09:00 | NUR ---
NURSE NOTES: unable to give IV med vancomycin, no IV access tried to put IV twice and both times were unsuccessful.
--- NOTE | 2019-04-16 09:15 | Progress Note ---
DATE: 04/16/2019 SUBJECTIVE: He is a 43-year-old male patient with sepsis. He also has altered mental status. That is why, his attending has requested daily psychiatric consultation. Consultation requested for disorganized thought process. MENTAL STATUS EXAMINATION: A 43-year-old male. Appearance is disheveled. Attitude, irritable and agitated. Affect, guarded and restricted. Intellect poor. Mood, depressed and anxious. Motor activity, psychomotor agitation. Attention span is poor. Orientation x2. Speech is nonverbal. Thought process, disorganized and illogical. Insight and judgment is poor. DIAGNOSIS: Major depressive disorder, mild, recurrent with psychotic features, rule out paranoid schizophrenia. PLAN: Continue treatment with medications to clear disorganized thought process. A 20 minutes of cognitive behavioral therapy provided. Chart reviewed. Discussed with staff. Seen and assessed at the bedside. Osbaldo Bird M.D. DR: NEGAR JOB#: [id number] CC:
--- NOTE | 2019-04-16 09:20 | General Progress Note ---
Assessment/Plan Problem List: (1) Pneumonia ICD Codes: J18.9 - Pneumonia, unspecified organism SNOMED: 520035690 (2) Sickle cell anemia ICD Codes: D57.1 - Sickle-cell disease without crisis SNOMED: 407149904 (3) Sepsis ICD Codes: A41.9 - Sepsis, unspecified organism SNOMED: 11827365 Status: unchanged Assessment/Plan: pt diet abx psyc neuro eval cbc bmp am Subjective Constitutional: Reports: weakness Allergies: Coded Allergies: No Known Allergies (Unverified , 04/11/19) All Systems: reviewed and negative except above Subjective sleepy calm Objective Last 24 Hour Vital Signs Date Time Temp Pulse Resp B/P (MAP) Pulse Ox O2 Delivery O2 Flow Rate FiO2 04/16/19 06:00 106 106/73 04/16/19 04:00 97.0 106 19 106/73 (84) 96 04/16/19 04:00 101 04/16/19 00:38 98.2 04/16/19 00:00 97.5 104 20 137/93 (108) 98 04/16/19 00:00 103 04/15/19 22:37 99 143/93 04/15/19 21:00 Room Air 04/15/19 20:00 97.7 99 20 143/93 (110) 98 04/15/19 20:00 102 04/15/19 16:03 101 109/75 04/15/19 16:00 98 04/15/19 16:00 98.2 102 20 119/88 (98) 95 04/15/19 13:16 Room Air 04/15/19 12:00 93 04/15/19 12:00 97.8 89 18 99/65 (76) 95 Intake and Output 04/15/19 04/16/19 19:00 07:00 Output Total 1000 ml Balance -1000 ml Output Urine Total 1000 ml Laboratory Tests 04/16/19 05:47: White Blood Count 19.2#H, Red Blood Count 4.22L, Hemoglobin 12.3L, Hematocrit 34.7L, Mean Corpuscular Volume 82, Mean Corpuscular Hemoglobin 29.2, Mean Corpuscular Hemoglobin Concent 35.5, Red Cell Distribution Width 17.3H, Platelet Count 386, Mean Platelet Volume 6.9, Neutrophils (%) (Auto) , Lymphocytes (%) (Auto) , Monocytes (%) (Auto) , Eosinophils (%) (Auto) , Basophils (%) (Auto) , Neutrophils % (Manual) [Pending], Lymphocytes % (Manual) [Pending], Platelet Estimate [Pending], Platelet Morphology [Pending], Sodium Level 141, Potassium Level 4.6, Chloride Level 106, Carbon Dioxide Level 27, Anion Gap 8, Blood Urea Nitrogen 12, Creatinine 0.5L, Estimat Glomerular Filtration Rate > 60, Glucose Level 72L, Calcium Level 9.8 Height (Feet): 5 Height (Inches): 7.00 Weight (Pounds): 103 General Appearance: lethargic EENT: normal ENT inspection Neck: normal alignment Cardiovascular: normal peripheral pulses, normal rate, regular rhythm Respiratory/Chest: chest wall non-tender, lungs clear, normal breath sounds Abdomen: normal bowel sounds, non tender, soft Extremities: normal inspection Edema: no edema noted Arm (L), no edema noted Arm (R), no edema noted Leg (L), no edema noted Leg (R), no edema noted Pedal (L), no edema noted Pedal (R), no edema noted Generalized Neurologic: motor weakness Skin: normal pigmentation, warm/dry Marito Ortega DO Apr 16, 2019 09:20
--- NOTE | 2019-04-16 10:31 | Diagnostic Imaging Report ---
EXAM: XR Chest, 1 View CLINICAL HISTORY: COUGH TECHNIQUE: Frontal view of the chest. COMPARISON: Chest radiograph on 04/11/2019 FINDINGS: Hardware: None. Lungs/pleura: Left greater than right bibasilar opacities may represent atelectasis versus pneumonia. No significant pleural effusion or pneumothorax. Heart/mediastinum: Normal. No cardiomegaly. Soft tissues: Unremarkable. Bones: No acute fracture. Upper abdomen: Normal. IMPRESSION: Left greater than right bibasilar opacities may represent atelectasis versus pneumonia. Findings are decreased compared to prior exam.
[2019-04-16] MEDS: Azithromycin 250mg tab GT SCH (11:01)
[2019-04-16] MEDS: Multivitamins W/Minerals 15 ML UDC GT SCH (11:01)
[2019-04-16] MEDS: Lactobacillus-GG tablet GT SCH (11:02)
[2019-04-16] MEDS: Donepezil 10mg tab GT SCH (11:02)
--- NOTE | 2019-04-16 11:30 | NUR ---
NURSE NOTES: Iv was successfully started but it came off. Will try a third time to put new IV.
--- NOTE | 2019-04-16 13:13 | Infectious Diseases Prog Note ---
Assessment/Plan Assessment/Plan Assessment: Sepsis PNA -04/16 CXR: Left greater than right bibasilar opacities may represent atelectasis versus pneumonia. Findings are decreased compared to prior exam. -CXR: Left basilar atelectasis and possible consolidation -sp cx PsA (ramirez S) -influenza sc neg -u/a neg Fever; SP Leukocytosis; increased Gram positive bacteremia- contaminant -04/11 Bcx 1/4 CONS; 04/12 Bcx NTD HTN dysphagia s/p GT cerebellar ataxia seizure disorder Alzheimer's dementia SNF resident Plan: -Continue Cefepime #10/07-10 for PsA PNA -Continue Azithromycin #/ -Dc empiric IV Vancomycin #6 -04/11 SP Ceftriaxone x1 -f/u cx -Monitor CBC/CMP, temperatures -GT care -aspiration precautions -f/u repeat Bcx x2 -CBC, CMP am -Cdiff if diarrhea Thank you for consulting [facility]. Will continue to follow along with you. Discussed with RN. Subjective Allergies: Coded Allergies: No Known Allergies (Unverified , 04/11/19) Subjective afebrile repeat Bcx NTD leukocytosis increased Objective Vital Signs Last 24 Hour Vital Signs Date Time Temp Pulse Resp B/P (MAP) Pulse Ox O2 Delivery O2 Flow Rate FiO2 04/16/19 12:15 Room Air 04/16/19 12:00 97.9 112 20 122/99 (107) 94 04/16/19 09:00 Room Air 04/16/19 08:00 96.3 113 18 128/76 (93) 95 04/16/19 06:00 106 106/73 04/16/19 04:00 97.0 106 19 106/73 (84) 96 04/16/19 04:00 101 04/16/19 00:38 98.2 04/16/19 00:00 97.5 104 20 137/93 (108) 98 04/16/19 00:00 103 04/15/19 22:37 99 143/93 04/15/19 21:00 Room Air 04/15/19 20:00 97.7 99 20 143/93 (110) 98 04/15/19 20:00 102 04/15/19 16:03 101 109/75 04/15/19 16:00 98 04/15/19 16:00 98.2 102 20 119/88 (98) 95 04/15/19 13:16 Room Air Height (Feet): 5 Height (Inches): 7.00 Weight (Pounds): 103 Objective GENERAL: Calm in bed, lethargic, confused, and nonverbal. VITAL SIGNS: Temperature 101, pulse 98, respirations 21, and blood pressure 108/74. CARDIOVASCULAR: No murmurs. LUNGS: Poor air exchange. ABDOMEN: Bowel sounds distant. EXTREMITIES: No cyanosis, clubbing, or edema. NEUROLOGIC: The patient is flaccid in bed, not following directions. Laboratory Tests Test 04/16/19 05:47 White Blood Count 19.2 K/UL (4.8-10.8) #H Red Blood Count 4.22 M/UL (4.70-6.10) L Hemoglobin 12.3 G/DL (14.2-18.0) L Hematocrit 34.7 % (42.0-52.0) L Mean Corpuscular Volume 82 FL (80-99) Mean Corpuscular Hemoglobin 29.2 PG (27.0-31.0) Mean Corpuscular Hemoglobin Concent 35.5 G/DL (32.0-36.0) Red Cell Distribution Width 17.3 % (11.6-14.8) H Platelet Count 386 K/UL (150-450) Mean Platelet Volume 6.9 FL (6.5-10.1) Neutrophils (%) (Auto) % (45.0-75.0) Lymphocytes (%) (Auto) % (20.0-45.0) Monocytes (%) (Auto) % (1.0-10.0) Eosinophils (%) (Auto) % (0.0-3.0) Basophils (%) (Auto) % (0.0-2.0) Differential Total Cells Counted 100 Neutrophils % (Manual) 75 % (45-75) Lymphocytes % (Manual) 16 % (20-45) L Monocytes % (Manual) 6 % (1-10) Eosinophils % (Manual) 3 % (0-3) Basophils % (Manual) 0 % (0-2) Band Neutrophils 0 % (0-8) Platelet Estimate Adequate Platelet Morphology Normal Anisocytosis 1+ Sodium Level 141 MMOL/L (136-145) Potassium Level 4.6 MMOL/L (3.5-5.1) Chloride Level 106 MMOL/L (98-107) Carbon Dioxide Level 27 MMOL/L (21-32) Anion Gap 8 mmol/L (5-15) Blood Urea Nitrogen 12 mg/dL (7-18) Creatinine 0.5 MG/DL (0.55-1.30) L Estimat Glomerular Filtration Rate > 60 mL/min (>60) Glucose Level 72 MG/DL (74-106) L Calcium Level 9.8 MG/DL (8.5-10.1) Current Medications Medications (Trade) Dose Ordered Sig/Kory Route PRN Reason Start Time Stop Time Status Last Admin Dose Admin Acetaminophen (Tylenol) 650 mg Q6H PRN GT Mild Pain/Temp > 100.5 04/11/19 23:00 05/11/19 22:59 04/12/19 20:20 Azithromycin (Zithromax) 500 mg DAILY GT 04/14/19 09:00 04/19/19 08:59 04/16/19 11:01 Cefepime HCl 1 gm/ Dextrose 55 ml @ 110 mls/hr Q12H IVPB 04/11/19 18:00 04/18/19 17:59 04/16/19 06:00 Dextrose 1,000 ml @ 75 mls/hr [id number] IV 04/13/19 12:00 05/13/19 11:59 04/16/19 06:45 Dextrose (Dextrose 50%) 25 ml Q30M PRN IV Hypoglycemia 04/13/19 16:30 05/13/19 16:29 Dextrose (Dextrose 50%) 50 ml Q30M PRN IV Hypoglycemia 04/13/19 16:30 05/13/19 16:29 Diltiazem HCl (Cardizem) 10 mg Q2H PRN IVP PULSE 04/12/19 08:00 05/12/19 07:59 04/12/19 17:27 Donepezil HCl (Aricept) 10 mg DAILY GT 04/12/19 09:00 05/12/19 08:59 04/16/19 11:02 Heparin Sodium (Porcine) (Heparin 5000 units/ml) 5,000 units EVERY 12 HOURS SUBQ 04/12/19 11:00 05/12/19 10:59 04/16/19 09:00 Insulin Aspart (NovoLOG) Q6HR SUBQ 04/13/19 18:00 05/13/19 17:59 04/16/19 00:16 Lactobacillus Acidophilus (Culturelle) 1 tab DAILY GT 04/12/19 09:00 05/12/19 08:59 04/16/19 11:02 Lansoprazole (Prevacid) 30 mg DAILY GT 04/12/19 09:00 05/12/19 08:59 04/16/19 11:02 Lorazepam (Ativan) 1 mg Q6H PRN GT For Anxiety 04/13/19 09:30 04/20/19 04:44 04/15/19 01:21 Morphine Sulfate (Morphine Sulfate) 1 mg Q4H PRN IVP For Pain 4-6 04/12/19 17:00 04/19/19 16:59 04/16/19 11:23 Morphine Sulfate (Morphine Sulfate) 2 mg Q4H PRN IVP Severe Pain (Pain Scale 7-10) 04/12/19 17:00 04/19/19 16:59 04/16/19 00:08 Multivitamins (Multivitamins W/ Minerals 15ml Liquid) 15 ml DAILY GT 04/12/19 09:00 05/12/19 08:59 04/16/19 11:01 Ondansetron HCl (Zofran) 4 mg Q6H PRN GT Nausea & Vomiting 04/12/19 01:45 05/12/19 01:44 Primidone (Mysoline) 100 mg QHS GT 04/12/19 21:00 05/12/19 20:59 04/15/19 22:36 Vancomycin HCl (Vanco rx to dose) 1 ea DAILY PRN MISC Per rx protocol 04/11/19 16:30 05/11/19 16:29 Vancomycin/Sodium Chloride 275 ml @ 137.5 mls/ hr 0800,2000 IVPB 04/16/19 08:00 04/18/19 17:59 04/16/19 13:05 Verapamil HCl (Calan) 80 mg EVERY 8 HOURS GT 04/13/19 14:00 05/11/19 21:59 04/16/19 06:00 Shirley Cadena M.D. Apr 16, 2019 13:13
--- NOTE | 2019-04-16 13:54 | NUR ---
NURSE NOTES: Per doctor Jordan, contact Dr Cadena and Efe about pt Gt tube condition. Gtube site is red and some discharge yellowish in color was noticed, discharge was orderless.
--- NOTE | 2019-04-16 14:05 | NUR ---
NURSE NOTES: pt was transferred [facility]. in stable condition. Pt was just deep suctioned by respiratory 15min ago. chart was taken with pt as well as insulin pen. dispatch clerk taken off pt. Pt has a new IV on L hand. pt had no belonging.
--- NOTE | 2019-04-16 14:10 | NUR ---
CHARGE NURSE NOTE: received patient from telemetry. Pt is coughing a lot, has a lot of mucus, O2 sat 92% room. notified.
--- NOTE | 2019-04-16 14:15 | NUR ---
NURSE NOTES: pt was transfer from tele, report received from charge nurse EDUAR Conn. pt awake, A/O x1, anxious, congested, coughing, pt required frequently suctioning, RT notified, pts on 2L O2 via NC, sat 93%, pts has stage II sacral, picture taken, dressing on, pts on Gtube feeding, need to stop feeding per dr Sauer for 2 hrs, no residual, GT clamped, Garcia in place, draining clear yellow urine, BS q 6hrs, IVF infusing. fall, asp, and iso precaution maintained. will continue to monitor. pts on specialty bed, will continue to monitor.
--- NOTE | 2019-04-16 15:33 | NUR ---
CHARGE NURSE NOTE: BP 156/113, [id number], O2 Sat.87% on 2liters NC. was called, message left.
--- NOTE | 2019-04-16 15:44 | NUR ---
CHARGE NURSE NOTE: Spoke with , notified him of patient's condition. No new orders given. He does not want send pt back to telemetry unit.
[2019-04-16] MEDS ORDERED: NS IVPB SCH (17:00)
[2019-04-16] MEDS ORDERED: PHENYTOIN IVPB SCH (17:00)
[2019-04-16] MEDS ORDERED: NS IVPB ONE (17:15)
[2019-04-16] MEDS ORDERED: dilTIAZem HCl 25mg/5ml Inj IVP PRN (17:15)
[2019-04-16] MEDS ORDERED: PHENYTOIN IVPB ONE (17:15)
[2019-04-16] MEDS ORDERED: Morphine Sulfate 2mg/ml Inj(IV/IM USE ONLY) IVP PRN (17:30)
--- NOTE | 2019-04-16 17:53 | NUR ---
pts on Venturi mask , 30% 6 L , need frequent suctioning , mild cough, RT PRN, will continue to monitor. pts back on Gtube feeding per order.
--- NOTE | 2019-04-16 19:30 | NUR ---
NURSE NOTES: Pt received in bed, head of bed elevated, venturi mask in place, key catheter in place, gtube feeding running, IV in place, pt with increased HR 122 Camacho aware, will continue to monitor.
[2019-04-17] VITALS: BP 125/89
[2019-04-17] MEDS: NovoLOG Insulin Flexpen SUBQ SCH ×5 (00:40→23:59)
[2019-04-17] MEDS: Morphine Sulfate 2mg/ml Inj(IV/IM USE ONLY) IVP PRN (00:49)
[2019-04-17 04:00] VITALS: BP 106/65
[2019-04-17] MEDS: Cefepime HCl 1 GM in D5W 55 ML IVPB SCH ×2 (05:26→17:14)
[2019-04-17] MEDS: Verapamil 80mg tab GT SCH ×3 (05:27→21:27)
--- NOTE | 2019-04-17 07:05 | NUR ---
HAND-OFF: Report given to EDUAR Serrato. pt without audible congestion at the moment, was suctioned during the night by RT, stable condition
--- NOTE | 2019-04-17 07:12 | NUR ---
NURSE NOTES: received patient in bed, head of bed elevated, venturi mask in place at 6 L/min, at 30% sat 94%, key catheter in place, on G-tube feeding on going,no residual noted ,IVF patent and infusing well,on fall and aspiration precaution, will continue to monitor. geno hendrix
[2019-04-17 07:20] LABS: HEMATOCRIT 33.4 % (42.0-52.0); HEMOGLOBIN 11.8 G/DL (14.2-18.0); MEAN CORPUSCULAR VOLUME 82 FL (80-99); PLATELET COUNT 420 K/UL (150-450); RED BLOOD COUNT 4.05 M/UL (4.70-6.10); RED CELL DISTRIBUTION WIDTH 17.9 % (11.6-14.8); WHITE BLOOD COUNT 18.7 K/UL (4.8-10.8)
[2019-04-17 07:47] LABS: ALANINE AMINOTRANSFERASE 70 U/L (12-78); ALBUMIN 2.5 G/DL (3.4-5.0); ALBUMIN/GLOBULIN RATIO 0.5 (1.0-2.7); ALKALINE PHOSPHATASE 90 U/L (46-116); ANION GAP 7 mmol/L (5-15); ASPARTATE AMINO TRANSFERASE 27 U/L (15-37); BILIRUBIN,TOTAL 0.6 MG/DL (0.2-1.0); BLOOD UREA NITROGEN 12 mg/dL (7-18); CALCIUM 9.1 MG/DL (8.5-10.1); CARBON DIOXIDE 28 MMOL/L (21-32); CHLORIDE 103 MMOL/L (98-107); CREATININE 0.5 MG/DL (0.55-1.30); POTASSIUM 4.3 MMOL/L (3.5-5.1); SODIUM 138 MMOL/L (136-145)
[2019-04-17 08:00] VITALS: BP 103/69
[2019-04-17] MEDS: Donepezil 10mg tab GT SCH (08:12)
[2019-04-17] MEDS: Lactobacillus-GG tablet GT SCH (08:12)
[2019-04-17] MEDS: Multivitamins W/Minerals 15 ML UDC GT SCH (08:13)
[2019-04-17] MEDS: Heparin 5000 units/ml inj SUBQ SCH ×2 (08:14→20:25)
[2019-04-17] MEDS ORDERED: Azithromycin 250mg tab GT SCH (09:00)
--- NOTE | 2019-04-17 09:21 | General Progress Note ---
Assessment/Plan Problem List: (1) Pneumonia ICD Codes: J18.9 - Pneumonia, unspecified organism SNOMED: 576679410 (2) Sickle cell anemia ICD Codes: D57.1 - Sickle-cell disease without crisis SNOMED: 781053076 (3) Sepsis ICD Codes: A41.9 - Sepsis, unspecified organism SNOMED: 42955912 Status: unchanged Assessment/Plan: pt diet abx psyc neuro eval cbc bmp am Subjective Constitutional: Reports: weakness Allergies: Coded Allergies: No Known Allergies (Unverified , 04/11/19) All Systems: reviewed and negative except above Subjective sleepy calm Objective Last 24 Hour Vital Signs Date Time Temp Pulse Resp B/P (MAP) Pulse Ox O2 Delivery O2 Flow Rate FiO2 04/17/19 08:20 Room Air 04/17/19 08:00 98.6 93 18 103/69 (80) 95 04/17/19 05:27 106 106/65 04/17/19 04:00 98.4 106 25 106/65 (79) 95 04/17/19 00:00 99.3 113 24 125/89 (101) 94 04/16/19 21:08 122 133/88 04/16/19 21:00 Room Air 04/16/19 20:00 98.1 122 24 133/88 (103) 98 04/16/19 15:56 98.0 125 21 156/113 (127) 92 04/16/19 15:14 96.8 04/16/19 14:05 96.8 112 22 128/99 (109) 92 04/16/19 14:00 125 156/113 04/16/19 12:15 Room Air 04/16/19 12:00 97.9 112 20 122/99 (107) 94 Intake and Output 04/16/19 04/17/19 19:00 07:00 Intake Total 640 ml 1700 ml Output Total 1700 ml 1150 ml Balance -1060 ml 550 ml Free Water 100 ml 230 ml IV Total 750 ml Tube Feeding 540 ml 720 ml Output Urine Total 1700 ml 1150 ml # Bowel Movements 1 Laboratory Tests 04/17/19 05:22: White Blood Count 18.7H, Red Blood Count 4.05L, Hemoglobin 11.8L, Hematocrit 33.4L, Mean Corpuscular Volume 82, Mean Corpuscular Hemoglobin 29.0, Mean Corpuscular Hemoglobin Concent 35.2, Red Cell Distribution Width 17.9H, Platelet Count 420, Mean Platelet Volume 7.0, Neutrophils (%) (Auto) , Lymphocytes (%) (Auto) , Monocytes (%) (Auto) , Eosinophils (%) (Auto) , Basophils (%) (Auto) , Neutrophils % (Manual) [Pending], Lymphocytes % (Manual) [Pending], Platelet Estimate [Pending], Platelet Morphology [Pending], Sodium Level 138, Potassium Level 4.3, Chloride Level 103, Carbon Dioxide Level 28, Anion Gap 7, Blood Urea Nitrogen 12, Creatinine 0.5L, Estimat Glomerular Filtration Rate > 60, Glucose Level 102, Calcium Level 9.1, Total Bilirubin 0.6 , Aspartate Amino Transf (AST/SGOT) 27, Alanine Aminotransferase (ALT/SGPT) 70, Alkaline Phosphatase 90, Total Protein 8.0, Albumin 2.5L, Globulin 5.5, Albumin/ Globulin Ratio 0.5L Height (Feet): 5 Height (Inches): 7.00 Weight (Pounds): 103 General Appearance: lethargic EENT: normal ENT inspection Neck: normal alignment Cardiovascular: normal peripheral pulses, normal rate, regular rhythm Respiratory/Chest: chest wall non-tender, lungs clear, normal breath sounds Abdomen: normal bowel sounds, non tender, soft Extremities: normal inspection Edema: no edema noted Arm (L), no edema noted Arm (R), no edema noted Leg (L), no edema noted Leg (R), no edema noted Pedal (L), no edema noted Pedal (R), no edema noted Generalized Neurologic: motor weakness Skin: normal pigmentation, warm/dry Marito Ortega DO Apr 17, 2019 09:21
[2019-04-17] MEDS: PHENYTOIN IV SCH (09:25)
[2019-04-17] MEDS: NS IV SCH (09:25)
--- NOTE | 2019-04-17 10:53 | Infectious Diseases Prog Note ---
Assessment/Plan Assessment/Plan Assessment: Sepsis PNA -04/16 CXR: Left greater than right bibasilar opacities may represent atelectasis versus pneumonia. Findings are decreased compared to prior exam. -CXR: Left basilar atelectasis and possible consolidation -sp cx PsA (ramirez S) -influenza sc neg -u/a neg Fever; SP Leukocytosis; increased Gram positive bacteremia- contaminant -04/11 Bcx 1/4 CONS; 04/12 Bcx NTD HTN dysphagia s/p GT cerebellar ataxia seizure disorder Alzheimer's dementia SNF resident Plan: -Continue Cefepime #11/09 for PsA PNA -Continue Azithromycin #/ -04/16 SP IV Vancomycin #6 -04/11 SP Ceftriaxone x1 -f/u cx -Monitor CBC/CMP, temperatures -GT care -aspiration precautions -f/u repeat Bcx x2 -CBC, CMP am -Cdiff if diarrhea Thank you for consulting [facility]. Will continue to follow along with you. Discussed with RN. Subjective Allergies: Coded Allergies: No Known Allergies (Unverified , 04/11/19) Subjective Afebrile WBC stable at 19 Pt on RA Objective Vital Signs Last 24 Hour Vital Signs Date Time Temp Pulse Resp B/P (MAP) Pulse Ox O2 Delivery O2 Flow Rate FiO2 04/17/19 08:20 Room Air 04/17/19 08:00 98.6 93 18 103/69 (80) 95 04/17/19 05:27 106 106/65 04/17/19 04:00 98.4 106 25 106/65 (79) 95 04/17/19 00:00 99.3 113 24 125/89 (101) 94 04/16/19 21:08 122 133/88 04/16/19 21:00 Room Air 04/16/19 20:00 98.1 122 24 133/88 (103) 98 04/16/19 15:56 98.0 125 21 156/113 (127) 92 04/16/19 15:14 96.8 04/16/19 14:05 96.8 112 22 128/99 (109) 92 04/16/19 14:00 125 156/113 04/16/19 12:15 Room Air 04/16/19 12:00 97.9 112 20 122/99 (107) 94 Height (Feet): 5 Height (Inches): 7.00 Weight (Pounds): 103 Objective GENERAL: Calm in bed, lethargic, confused, and nonverbal. CARDIOVASCULAR: RRR, S1,S2 LUNGS: Coarse B/L ABDOMEN: Bowel sounds distant. Laboratory Tests Test 04/17/19 05:22 White Blood Count 18.7 K/UL (4.8-10.8) H Red Blood Count 4.05 M/UL (4.70-6.10) L Hemoglobin 11.8 G/DL (14.2-18.0) L Hematocrit 33.4 % (42.0-52.0) L Mean Corpuscular Volume 82 FL (80-99) Mean Corpuscular Hemoglobin 29.0 PG (27.0-31.0) Mean Corpuscular Hemoglobin Concent 35.2 G/DL (32.0-36.0) Red Cell Distribution Width 17.9 % (11.6-14.8) H Platelet Count 420 K/UL (150-450) Mean Platelet Volume 7.0 FL (6.5-10.1) Neutrophils (%) (Auto) % (45.0-75.0) Lymphocytes (%) (Auto) % (20.0-45.0) Monocytes (%) (Auto) % (1.0-10.0) Eosinophils (%) (Auto) % (0.0-3.0) Basophils (%) (Auto) % (0.0-2.0) Neutrophils % (Manual) Pending Lymphocytes % (Manual) Pending Platelet Estimate Pending Platelet Morphology Pending Sodium Level 138 MMOL/L (136-145) Potassium Level 4.3 MMOL/L (3.5-5.1) Chloride Level 103 MMOL/L (98-107) Carbon Dioxide Level 28 MMOL/L (21-32) Anion Gap 7 mmol/L (5-15) Blood Urea Nitrogen 12 mg/dL (7-18) Creatinine 0.5 MG/DL (0.55-1.30) L Estimat Glomerular Filtration Rate > 60 mL/min (>60) Glucose Level 102 MG/DL (74-106) Calcium Level 9.1 MG/DL (8.5-10.1) Total Bilirubin 0.6 MG/DL (0.2-1.0) Aspartate Amino Transf (AST/SGOT) 27 U/L (15-37) Alanine Aminotransferase (ALT/SGPT) 70 U/L (12-78) Alkaline Phosphatase 90 U/L (46-116) Total Protein 8.0 G/DL (6.4-8.2) Albumin 2.5 G/DL (3.4-5.0) L Globulin 5.5 g/dL Albumin/Globulin Ratio 0.5 (1.0-2.7) L Current Medications Medications (Trade) Dose Ordered Sig/Kory Route PRN Reason Start Time Stop Time Status Last Admin Dose Admin Acetaminophen (Tylenol) 650 mg Q6H PRN GT Mild Pain/Temp > 100.5 04/16/19 17:30 05/11/19 17:29 Azithromycin (Zithromax) 500 mg DAILY GT 04/17/19 09:00 04/19/19 08:59 04/17/19 08:12 Cefepime HCl 1 gm/ Dextrose 55 ml @ 110 mls/hr Q12H IVPB 04/16/19 18:00 04/18/19 17:59 04/17/19 05:26 Dextrose 1,000 ml @ 75 mls/hr [id number] IV 04/16/19 17:15 05/13/19 11:59 04/17/19 06:10 Dextrose (Dextrose 50%) 25 ml Q30M PRN IV Hypoglycemia 04/16/19 17:30 05/13/19 16:29 Dextrose (Dextrose 50%) 50 ml Q30M PRN IV Hypoglycemia 04/16/19 17:30 05/13/19 16:29 Donepezil HCl (Aricept) 10 mg DAILY GT 04/17/19 09:00 05/12/19 08:59 04/17/19 08:12 Heparin Sodium (Porcine) (Heparin 5000 units/ml) 5,000 units EVERY 12 HOURS SUBQ 04/16/19 21:00 05/12/19 10:59 04/17/19 08:14 Insulin Aspart (NovoLOG) Q6HR SUBQ 04/16/19 18:00 05/13/19 17:59 04/17/19 05:29 Lactobacillus Acidophilus (Culturelle) 1 tab DAILY GT 04/17/19 09:00 05/12/19 08:59 04/17/19 08:12 Lansoprazole (Prevacid) 30 mg DAILY GT 04/17/19 09:00 05/12/19 08:59 04/17/19 08:12 Lorazepam (Ativan) 1 mg Q6H PRN GT For Anxiety 04/16/19 17:30 04/20/19 17:29 Morphine Sulfate (Morphine Sulfate) 1 mg Q4H PRN IVP For Pain 4-6 04/16/19 17:30 04/19/19 17:29 04/17/19 00:49 Morphine Sulfate (Morphine Sulfate) 2 mg Q4H PRN IVP Severe Pain (Pain Scale 7-10) 04/16/19 17:30 04/19/19 17:29 Multivitamins (Multivitamins W/ Minerals 15ml Liquid) 15 ml DAILY GT 04/17/19 09:00 05/12/19 08:59 04/17/19 08:13 Ondansetron HCl (Zofran) 4 mg Q6H PRN GT Nausea & Vomiting 04/16/19 17:30 05/12/19 17:29 Phenytoin 300 mg/ Sodium Chloride 55 ml @ 110 mls/hr DAILY IV 04/17/19 09:00 05/17/19 08:59 04/17/19 09:25 Primidone (Mysoline) 100 mg QHS GT 04/16/19 21:00 05/12/19 20:59 04/16/19 20:57 Verapamil HCl (Calan) 80 mg EVERY 8 HOURS GT 04/16/19 22:00 05/16/19 21:59 04/17/19 05:27 Rayshawn Soni MD Apr 17, 2019 10:53
[2019-04-17 12:00] VITALS: BP 107/76
--- NOTE | 2019-04-17 12:52 | Pulmonology Progress Note ---
Assessment/Plan Problems: (1) Sepsis (2) Nosocomial pneumonia (3) Epilepsy (4) Hereditary cerebellar ataxia (5) Cavitary lung disease (6) Chronic tachycardia (7) DW-Prtbbfj-Krtzsy disease (8) Feeding by G-tube Assessment/Plan wbc is higher sputum has pseudomonas, pansensitive iv abx symptomatic treatment feeding by Gtube aspiration precaution Verapamil for chronic tachycardia, double the dose since, heart rate is low 100 monitor heart rate prbc prn Hem< 8 dvt prophylaxis. reviewed echo: normal EF Subjective ROS Limited/Unobtainable: No Constitutional: Reports: no symptoms HEENT: Repors: no symptoms Respiratory: Reports: no symptoms Allergies: Coded Allergies: No Known Allergies (Unverified , 04/11/19) Objective Last 24 Hour Vital Signs Date Time Temp Pulse Resp B/P (MAP) Pulse Ox O2 Delivery O2 Flow Rate FiO2 04/17/19 12:00 98.5 103 18 107/76 (86) 98 04/17/19 08:20 Room Air 04/17/19 08:00 98.6 93 18 103/69 (80) 95 04/17/19 05:27 106 106/65 04/17/19 04:00 98.4 106 25 106/65 (79) 95 04/17/19 00:00 99.3 113 24 125/89 (101) 94 04/16/19 21:08 122 133/88 04/16/19 21:00 Room Air 04/16/19 20:00 98.1 122 24 133/88 (103) 98 04/16/19 15:56 98.0 125 21 156/113 (127) 92 04/16/19 15:14 96.8 04/16/19 14:05 96.8 112 22 128/99 (109) 92 04/16/19 14:00 125 156/113 Intake and Output 04/16/19 04/17/19 19:00 07:00 Intake Total 640 ml 1835 ml Output Total 1700 ml 1150 ml Balance -1060 ml 685 ml Free Water 100 ml 230 ml IV Total 825 ml Tube Feeding 540 ml 780 ml Output Urine Total 1700 ml 1150 ml # Bowel Movements 1 Objective General Appearance: no acute distress HEENT: normocephalic, anicteric Respiratory/Chest: chest wall non-tender, rhonchi Cardiovascular: normal peripheral pulses, normal rate, regular rhythm Abdomen: normal bowel sounds, soft, non tender Genitourinary: normal external genitalia Extremities: no cyanosis Laboratory Tests 04/17/19 05:22: White Blood Count 18.7H, Red Blood Count 4.05L, Hemoglobin 11.8L, Hematocrit 33.4L, Mean Corpuscular Volume 82, Mean Corpuscular Hemoglobin 29.0, Mean Corpuscular Hemoglobin Concent 35.2, Red Cell Distribution Width 17.9H, Platelet Count 420, Mean Platelet Volume 7.0, Neutrophils (%) (Auto) , Lymphocytes (%) (Auto) , Monocytes (%) (Auto) , Eosinophils (%) (Auto) , Basophils (%) (Auto) , Differential Total Cells Counted 100, Neutrophils % ( Manual) 82H, Lymphocytes % (Manual) 12L, Monocytes % (Manual) 4, Eosinophils % ( Manual) 0, Basophils % (Manual) 1, Band Neutrophils 1, Nucleated Red Blood Cells 4, Platelet Estimate Adequate, Platelet Morphology Normal, Red Blood Cell Morphology Normal, Sodium Level 138, Potassium Level 4.3, Chloride Level 103, Carbon Dioxide Level 28, Anion Gap 7, Blood Urea Nitrogen 12, Creatinine 0.5L, Estimat Glomerular Filtration Rate > 60, Glucose Level 102, Calcium Level 9.1, Total Bilirubin 0.6, Aspartate Amino Transf (AST/SGOT) 27, Alanine Aminotransferase (ALT/SGPT) 70, Alkaline Phosphatase 90, Total Protein 8.0, Albumin 2.5L, Globulin 5.5, Albumin/Globulin Ratio 0.5L Current Medications Medications (Trade) Dose Ordered Sig/Kory Route PRN Reason Start Time Stop Time Status Last Admin Dose Admin Acetaminophen (Tylenol) 650 mg Q6H PRN GT Mild Pain/Temp > 100.5 04/16/19 17:30 05/11/19 17:29 Azithromycin (Zithromax) 500 mg DAILY GT 04/17/19 09:00 04/19/19 08:59 04/17/19 08:12 Cefepime HCl 1 gm/ Dextrose 55 ml @ 110 mls/hr Q12H IVPB 04/16/19 18:00 04/18/19 17:59 04/17/19 05:26 Dextrose 1,000 ml @ 75 mls/hr [id number] IV 04/16/19 17:15 05/13/19 11:59 04/17/19 06:10 Dextrose (Dextrose 50%) 25 ml Q30M PRN IV Hypoglycemia 04/16/19 17:30 05/13/19 16:29 Dextrose (Dextrose 50%) 50 ml Q30M PRN IV Hypoglycemia 04/16/19 17:30 05/13/19 16:29 Donepezil HCl (Aricept) 10 mg DAILY GT 04/17/19 09:00 05/12/19 08:59 04/17/19 08:12 Heparin Sodium (Porcine) (Heparin 5000 units/ml) 5,000 units EVERY 12 HOURS SUBQ 04/16/19 21:00 05/12/19 10:59 04/17/19 08:14 Insulin Aspart (NovoLOG) Q6HR SUBQ 04/16/19 18:00 05/13/19 17:59 04/17/19 05:29 Lactobacillus Acidophilus (Culturelle) 1 tab DAILY GT 04/17/19 09:00 05/12/19 08:59 04/17/19 08:12 Lansoprazole (Prevacid) 30 mg DAILY GT 04/17/19 09:00 05/12/19 08:59 04/17/19 08:12 Lorazepam (Ativan) 1 mg Q6H PRN GT For Anxiety 04/16/19 17:30 04/20/19 17:29 Morphine Sulfate (Morphine Sulfate) 1 mg Q4H PRN IVP For Pain 4-6 04/16/19 17:30 04/19/19 17:29 04/17/19 00:49 Morphine Sulfate (Morphine Sulfate) 2 mg Q4H PRN IVP Severe Pain (Pain Scale 7-10) 04/16/19 17:30 04/19/19 17:29 Multivitamins (Multivitamins W/ Minerals 15ml Liquid) 15 ml DAILY GT 04/17/19 09:00 05/12/19 08:59 04/17/19 08:13 Ondansetron HCl (Zofran) 4 mg Q6H PRN GT Nausea & Vomiting 04/16/19 17:30 05/12/19 17:29 Phenytoin 300 mg/ Sodium Chloride 55 ml @ 110 mls/hr DAILY IV 04/17/19 09:00 05/17/19 08:59 04/17/19 09:25 Primidone (Mysoline) 100 mg QHS GT 04/16/19 21:00 05/12/19 20:59 04/16/19 20:57 Verapamil HCl (Calan) 80 mg EVERY 8 HOURS GT 04/16/19 22:00 05/16/19 21:59 04/17/19 05:27 Carlos Sauer MD Apr 17, 2019 12:52
--- NOTE | 2019-04-17 12:55 | NUR ---
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 98.4 HR 106 RR 18 B/P 107/76 WBC 18.7 IS: DILANTIN IV CEFEPIME IV ZITHROMAX IVF D5 @ 75ML/HR HEPARIN SUBC MED/SURG STATUS
--- NOTE | 2019-04-17 14:15 | Progress Note ---
DATE: 04/17/2019 SUBJECTIVE: He is a male patient who is very confused and disorganized, but he has altered mental status, confusion, disorganized thought process, decline in cognition below his baseline secondary to sepsis. That is why, his attending has requested daily psychiatric consultation. MENTAL STATUS EXAMINATION: This is a 43-year-old male. Appearance is disheveled. Attitude, irritable and agitated. Affect, guarded and restricted. Intellect poor. Mood, depressed and anxious. Motor activity, psychomotor agitation. Attention span is poor. Orientation x2. Speech is low volume, slurred. Thought process, disorganized and illogical. Insight and judgment is poor. DIAGNOSIS: Major depressive disorder, severe, recurrent with psychotic features. PLAN: Treat him with Aricept 10 mg at bedtime and Ativan 1 mg every 6 hours p.r.n. anxiety and agitation. 20 minutes of behavioral management provided. Chart reviewed. Discussed with staff. Seen and assessed in his room. Osbaldo Bird M.D. DR: CHRISTOPHER JOB#: [id number] CC:
[2019-04-17 15:48] VITALS: BP 97/66
[2019-04-17] MEDS: LORazepam 1mg tab GT PRN (15:52)
--- NOTE | 2019-04-17 19:30 | NUR ---
NURSE NOTES: Patient in bed, non-verbal, no signs of pain at this time. With Gtube connected to feeding. With IV on the left hand connected to IV fluid. With Garcia cath intact and draining well. Call light in reach. Bed in lowest position, lock engaged and alarm on.
[2019-04-17 20:00] VITALS: BP 116/74
[2019-04-18] VITALS: BP 104/63
[2019-04-18] MEDS: LORazepam 1mg tab GT PRN ×2 (02:31→21:23)
[2019-04-18 04:00] VITALS: BP 104/70
[2019-04-18] MEDS: NovoLOG Insulin Flexpen SUBQ SCH ×4 (05:27→23:08)
[2019-04-18] MEDS: Verapamil 80mg tab GT SCH ×4 (05:36→21:29)
[2019-04-18] MEDS: Cefepime HCl 1 GM in D5W 55 ML IVPB SCH ×3 (05:42→18:10)
[2019-04-18 07:04] LABS: ANION GAP 3 mmol/L (5-15); BLOOD UREA NITROGEN 11 mg/dL (7-18); CALCIUM 9.3 MG/DL (8.5-10.1); CARBON DIOXIDE 32 MMOL/L (21-32); CHLORIDE 102 MMOL/L (98-107); CREATININE 0.5 MG/DL (0.55-1.30); POTASSIUM 4.5 MMOL/L (3.5-5.1); SODIUM 137 MMOL/L (136-145)
[2019-04-18 07:13] LABS: BASOPHILS % (AUTO) 0.9 % (0.0-2.0); EOSINOPHILS % (AUTO) 1.7 % (0.0-3.0); HEMATOCRIT 34.1 % (42.0-52.0); HEMOGLOBIN 12.2 G/DL (14.2-18.0); LYMPHOCYTES % (AUTO) 16.7 % (20.0-45.0); MEAN CORPUSCULAR VOLUME 82 FL (80-99); MONOCYTES % (AUTO) 8.5 % (1.0-10.0); NEUTROPHILS % (AUTO) 72.2 % (45.0-75.0); PLATELET COUNT 443 K/UL (150-450); RED BLOOD COUNT 4.14 M/UL (4.70-6.10); RED CELL DISTRIBUTION WIDTH 18.8 % (11.6-14.8); WHITE BLOOD COUNT 17.3 K/UL (4.8-10.8)
--- NOTE | 2019-04-18 07:30 | NUR ---
NURSE NOTES: Received patient on bed, asleep. IV intact and patent. G tube intact and patent. Garcia catheter present and intact and patent. Bed in low and locked position, call light in reach. No signs of respiratory distress or pain. Room board updated, will continue to monitor.
--- NOTE | 2019-04-18 07:31 | NUR ---
HAND-OFF: Report given to EDUAR Tabares.
[2019-04-18 08:00] VITALS: BP 98/62
[2019-04-18] MEDS: Donepezil 10mg tab GT SCH (10:01)
[2019-04-18] MEDS: Lactobacillus-GG tablet GT SCH (10:01)
[2019-04-18] MEDS: Multivitamins W/Minerals 15 ML UDC GT SCH (10:01)
[2019-04-18] MEDS: Heparin 5000 units/ml inj SUBQ SCH ×2 (10:02→21:05)
[2019-04-18] MEDS: PHENYTOIN IV SCH (10:02)
[2019-04-18] MEDS: NS IV SCH (10:02)
--- NOTE | 2019-04-18 10:14 | Infectious Diseases Prog Note ---
Assessment/Plan Assessment/Plan Assessment: Sepsis PNA -04/16 CXR: Left greater than right bibasilar opacities may represent atelectasis versus pneumonia. Findings are decreased compared to prior exam. -CXR: Left basilar atelectasis and possible consolidation -sp cx PsA (ramirez S) -influenza sc neg -u/a neg Fever; SP Leukocytosis; decreasing Gram positive bacteremia- contaminant -04/11 Bcx 1/4 CONS; 04/12 Bcx NTD HTN dysphagia s/p GT cerebellar ataxia seizure disorder Alzheimer's dementia SNF resident Plan: -Continue Cefepime #8/ for PsA PNA -04/18 SP Azithromycin #7/7 -04/16 SP IV Vancomycin #6 -04/11 SP Ceftriaxone x1 -Monitor CBC/CMP, temperatures -GT care -aspiration precautions -CBC, CMP am -Cdiff if diarrhea Thank you for consulting [facility]. Will continue to follow along with you. Discussed with RN. Subjective Allergies: Coded Allergies: No Known Allergies (Unverified , 04/11/19) Subjective Afebrile WBC stable at 17 Pt on RA Objective Vital Signs Last 24 Hour Vital Signs Date Time Temp Pulse Resp B/P (MAP) Pulse Ox O2 Delivery O2 Flow Rate FiO2 04/18/19 08:00 98.2 104 16 98/62 (74) 95 04/18/19 05:36 107 106/67 04/18/19 04:00 98.6 111 19 104/70 (81) 98 04/18/19 00:00 98.0 115 22 104/63 (77) 97 04/17/19 21:27 120 99/70 04/17/19 21:00 Room Air 04/17/19 20:00 99.6 120 24 116/74 (88) 96 04/17/19 15:48 99.0 110 18 97/66 (76) 100 04/17/19 13:37 103 107/76 04/17/19 12:00 98.5 103 18 107/76 (86) 98 Height (Feet): 5 Height (Inches): 7.00 Weight (Pounds): 103 Objective GENERAL: Calm in bed CARDIOVASCULAR: RRR, S1,S2 LUNGS: Coarse B/L ABDOMEN: Bowel sounds distant. Laboratory Tests Test 04/18/19 05:50 White Blood Count 17.3 K/UL (4.8-10.8) H Red Blood Count 4.14 M/UL (4.70-6.10) L Hemoglobin 12.2 G/DL (14.2-18.0) L Hematocrit 34.1 % (42.0-52.0) L Mean Corpuscular Volume 82 FL (80-99) Mean Corpuscular Hemoglobin 29.6 PG (27.0-31.0) Mean Corpuscular Hemoglobin Concent 35.9 G/DL (32.0-36.0) Red Cell Distribution Width 18.8 % (11.6-14.8) H Platelet Count 443 K/UL (150-450) Mean Platelet Volume 7.4 FL (6.5-10.1) Neutrophils (%) (Auto) 72.2 % (45.0-75.0) Lymphocytes (%) (Auto) 16.7 % (20.0-45.0) L Monocytes (%) (Auto) 8.5 % (1.0-10.0) Eosinophils (%) (Auto) 1.7 % (0.0-3.0) Basophils (%) (Auto) 0.9 % (0.0-2.0) Sodium Level 137 MMOL/L (136-145) Potassium Level 4.5 MMOL/L (3.5-5.1) Chloride Level 102 MMOL/L (98-107) Carbon Dioxide Level 32 MMOL/L (21-32) Anion Gap 3 mmol/L (5-15) L Blood Urea Nitrogen 11 mg/dL (7-18) Creatinine 0.5 MG/DL (0.55-1.30) L Estimat Glomerular Filtration Rate > 60 mL/min (>60) Glucose Level 97 MG/DL (74-106) Calcium Level 9.3 MG/DL (8.5-10.1) Current Medications Medications (Trade) Dose Ordered Sig/Kory Route PRN Reason Start Time Stop Time Status Last Admin Dose Admin Acetaminophen (Tylenol) 650 mg Q6H PRN GT Mild Pain/Temp > 100.5 04/16/19 17:30 05/11/19 17:29 Cefepime HCl 1 gm/ Dextrose 55 ml @ 110 mls/hr Q12H IVPB 04/16/19 18:00 04/20/19 17:59 04/18/19 05:42 Dextrose 1,000 ml @ 75 mls/hr [id number] IV 04/16/19 17:15 05/13/19 11:59 04/18/19 10:03 Dextrose (Dextrose 50%) 25 ml Q30M PRN IV Hypoglycemia 04/16/19 17:30 05/13/19 16:29 Dextrose (Dextrose 50%) 50 ml Q30M PRN IV Hypoglycemia 04/16/19 17:30 05/13/19 16:29 Donepezil HCl (Aricept) 10 mg DAILY GT 04/17/19 09:00 05/12/19 08:59 04/18/19 10:01 Heparin Sodium (Porcine) (Heparin 5000 units/ml) 5,000 units EVERY 12 HOURS SUBQ 04/16/19 21:00 05/12/19 10:59 04/18/19 10:02 Insulin Aspart (NovoLOG) Q6HR SUBQ 04/16/19 18:00 05/13/19 17:59 04/17/19 05:29 Lactobacillus Acidophilus (Culturelle) 1 tab DAILY GT 04/17/19 09:00 05/12/19 08:59 04/18/19 10:01 Lansoprazole (Prevacid) 30 mg DAILY GT 04/17/19 09:00 05/12/19 08:59 04/18/19 10:01 Lorazepam (Ativan) 1 mg Q6H PRN GT For Anxiety 04/16/19 17:30 04/20/19 17:29 04/18/19 02:31 Morphine Sulfate (Morphine Sulfate) 1 mg Q4H PRN IVP For Pain 4-6 04/16/19 17:30 04/19/19 17:29 04/17/19 00:49 Morphine Sulfate (Morphine Sulfate) 2 mg Q4H PRN IVP Severe Pain (Pain Scale 7-10) 04/16/19 17:30 04/19/19 17:29 Multivitamins (Multivitamins W/ Minerals 15ml Liquid) 15 ml DAILY GT 04/17/19 09:00 05/12/19 08:59 04/18/19 10:01 Ondansetron HCl (Zofran) 4 mg Q6H PRN GT Nausea & Vomiting 04/16/19 17:30 05/12/19 17:29 Phenytoin 300 mg/ Sodium Chloride 55 ml @ 110 mls/hr DAILY IV 04/17/19 09:00 05/17/19 08:59 04/18/19 10:02 Primidone (Mysoline) 100 mg QHS GT 04/16/19 21:00 05/12/19 20:59 04/17/19 21:39 Verapamil HCl (Calan) 80 mg EVERY 8 HOURS GT 04/16/19 22:00 05/16/19 21:59 04/18/19 05:36 Rayshawn Soni MD Apr 18, 2019 10:14
--- NOTE | 2019-04-18 11:23 | Pulmonology Progress Note ---
Assessment/Plan Problems: (1) Sepsis (2) Nosocomial pneumonia (3) Chronic tachycardia (4) Epilepsy (5) Hereditary cerebellar ataxia (6) Cavitary lung disease (7) XT-Gscflgt-Fkfjzy disease (8) Feeding by G-tube Assessment/Plan wbc is higher still tachy at 120 sputum has pseudomonas, pansensitive iv abx symptomatic treatment feeding by Gtube aspiration precaution Verapamil for chronic tachycardia, double the dose since, heart rate is low 100 monitor heart rate prbc prn Hem< 8 dvt prophylaxis. reviewed echo: normal EF Subjective ROS Limited/Unobtainable: No Constitutional: Reports: no symptoms HEENT: Repors: no symptoms Respiratory: Reports: no symptoms Allergies: Coded Allergies: No Known Allergies (Unverified , 04/11/19) Objective Last 24 Hour Vital Signs Date Time Temp Pulse Resp B/P (MAP) Pulse Ox O2 Delivery O2 Flow Rate FiO2 04/18/19 09:00 Room Air 04/18/19 08:00 98.2 104 16 98/62 (74) 95 04/18/19 05:36 107 106/67 04/18/19 04:00 98.6 111 19 104/70 (81) 98 04/18/19 00:00 98.0 115 22 104/63 (77) 97 04/17/19 21:27 120 99/70 04/17/19 21:00 Room Air 04/17/19 20:00 99.6 120 24 116/74 (88) 96 04/17/19 15:48 99.0 110 18 97/66 (76) 100 04/17/19 13:37 103 107/76 04/17/19 12:00 98.5 103 18 107/76 (86) 98 Intake and Output 04/17/19 04/18/19 19:00 07:00 Intake Total 1695 ml 965 ml Output Total 2250 ml 1100 ml Balance -555 ml -135 ml Intake Oral 0 ml Free Water 250 ml 100 ml IV Total 785 ml 805 ml Tube Feeding 660 ml 60 ml Output Urine Total 2250 ml 1100 ml # Voids 2 # Bowel Movements 1 1 Objective General Appearance: no acute distress HEENT: normocephalic, anicteric Respiratory/Chest: chest wall non-tender, rhonchi Cardiovascular: normal peripheral pulses, normal rate, regular rhythm Abdomen: normal bowel sounds, soft, non tender Genitourinary: normal external genitalia Extremities: no cyanosis Laboratory Tests 04/18/19 05:50: White Blood Count 17.3H, Red Blood Count 4.14L, Hemoglobin 12.2L, Hematocrit 34.1L, Mean Corpuscular Volume 82, Mean Corpuscular Hemoglobin 29.6, Mean Corpuscular Hemoglobin Concent 35.9, Red Cell Distribution Width 18.8H, Platelet Count 443, Mean Platelet Volume 7.4, Neutrophils (%) (Auto) 72.2, Lymphocytes (%) (Auto) 16.7L, Monocytes (%) (Auto) 8.5, Eosinophils (%) (Auto) 1.7, Basophils (%) (Auto) 0.9, Sodium Level 137, Potassium Level 4.5, Chloride Level 102, Carbon Dioxide Level 32, Anion Gap 3L, Blood Urea Nitrogen 11, Creatinine 0.5L, Estimat Glomerular Filtration Rate > 60, Glucose Level 97, Calcium Level 9.3 Current Medications Medications (Trade) Dose Ordered Sig/Kory Route PRN Reason Start Time Stop Time Status Last Admin Dose Admin Acetaminophen (Tylenol) 650 mg Q6H PRN GT Mild Pain/Temp > 100.5 04/16/19 17:30 05/11/19 17:29 Cefepime HCl 1 gm/ Dextrose 55 ml @ 110 mls/hr Q12H IVPB 04/16/19 18:00 04/20/19 17:59 04/18/19 05:42 Dextrose 1,000 ml @ 75 mls/hr [id number] IV 04/16/19 17:15 05/13/19 11:59 04/18/19 10:03 Dextrose (Dextrose 50%) 25 ml Q30M PRN IV Hypoglycemia 04/16/19 17:30 05/13/19 16:29 Dextrose (Dextrose 50%) 50 ml Q30M PRN IV Hypoglycemia 04/16/19 17:30 05/13/19 16:29 Donepezil HCl (Aricept) 10 mg DAILY GT 04/17/19 09:00 05/12/19 08:59 04/18/19 10:01 Heparin Sodium (Porcine) (Heparin 5000 units/ml) 5,000 units EVERY 12 HOURS SUBQ 04/16/19 21:00 05/12/19 10:59 04/18/19 10:02 Insulin Aspart (NovoLOG) Q6HR SUBQ 04/16/19 18:00 05/13/19 17:59 04/17/19 05:29 Lactobacillus Acidophilus (Culturelle) 1 tab DAILY GT 04/17/19 09:00 05/12/19 08:59 04/18/19 10:01 Lansoprazole (Prevacid) 30 mg DAILY GT 04/17/19 09:00 05/12/19 08:59 04/18/19 10:01 Lorazepam (Ativan) 1 mg Q6H PRN GT For Anxiety 04/16/19 17:30 04/20/19 17:29 04/18/19 02:31 Morphine Sulfate (Morphine Sulfate) 1 mg Q4H PRN IVP For Pain 4-6 04/16/19 17:30 04/19/19 17:29 04/17/19 00:49 Morphine Sulfate (Morphine Sulfate) 2 mg Q4H PRN IVP Severe Pain (Pain Scale 7-10) 04/16/19 17:30 04/19/19 17:29 Multivitamins (Multivitamins W/ Minerals 15ml Liquid) 15 ml DAILY GT 04/17/19 09:00 05/12/19 08:59 04/18/19 10:01 Ondansetron HCl (Zofran) 4 mg Q6H PRN GT Nausea & Vomiting 04/16/19 17:30 05/12/19 17:29 Phenytoin 300 mg/ Sodium Chloride 55 ml @ 110 mls/hr DAILY IV 04/17/19 09:00 05/17/19 08:59 04/18/19 10:02 Primidone (Mysoline) 100 mg QHS GT 04/16/19 21:00 05/12/19 20:59 04/17/19 21:39 Verapamil HCl (Calan) 80 mg EVERY 8 HOURS GT 04/16/19 22:00 05/16/19 21:59 04/18/19 05:36 Carlos Sauer MD Apr 18, 2019 11:23
--- NOTE | 2019-04-18 11:56 | NUR ---
NURSE NOTES: Suctioned patient. Patient tolerated well.
[2019-04-18 12:00] VITALS: BP 100/64
--- NOTE | 2019-04-18 13:56 | General Progress Note ---
Assessment/Plan Problem List: (1) Pneumonia ICD Codes: J18.9 - Pneumonia, unspecified organism SNOMED: 815411176 (2) Sickle cell anemia ICD Codes: D57.1 - Sickle-cell disease without crisis SNOMED: 834674575 (3) Sepsis ICD Codes: A41.9 - Sepsis, unspecified organism SNOMED: 43263341 Status: unchanged Assessment/Plan: pt diet abx psyc neuro eval cbc bmp am ltach eval Subjective Constitutional: Reports: weakness Allergies: Coded Allergies: No Known Allergies (Unverified , 04/11/19) All Systems: reviewed and negative except above Subjective o2nc sleepy calm Objective Last 24 Hour Vital Signs Date Time Temp Pulse Resp B/P (MAP) Pulse Ox O2 Delivery O2 Flow Rate FiO2 04/18/19 12:00 98.3 103 17 100/64 (76) 96 04/18/19 09:00 Room Air 04/18/19 08:00 98.2 104 16 98/62 (74) 95 04/18/19 05:36 107 106/67 04/18/19 04:00 98.6 111 19 104/70 (81) 98 04/18/19 00:00 98.0 115 22 104/63 (77) 97 04/17/19 21:27 120 99/70 04/17/19 21:00 Room Air 04/17/19 20:00 99.6 120 24 116/74 (88) 96 04/17/19 15:48 99.0 110 18 97/66 (76) 100 Intake and Output 04/17/19 04/18/19 19:00 07:00 Intake Total 1695 ml 1025 ml Output Total 2250 ml 1100 ml Balance -555 ml -75 ml Intake Oral 0 ml Free Water 250 ml 100 ml IV Total 785 ml 805 ml Tube Feeding 660 ml 120 ml Output Urine Total 2250 ml 1100 ml # Voids 2 # Bowel Movements 1 1 Laboratory Tests 04/18/19 05:50: White Blood Count 17.3H, Red Blood Count 4.14L, Hemoglobin 12.2L, Hematocrit 34.1L, Mean Corpuscular Volume 82, Mean Corpuscular Hemoglobin 29.6, Mean Corpuscular Hemoglobin Concent 35.9, Red Cell Distribution Width 18.8H, Platelet Count 443, Mean Platelet Volume 7.4, Neutrophils (%) (Auto) 72.2, Lymphocytes (%) (Auto) 16.7L, Monocytes (%) (Auto) 8.5, Eosinophils (%) (Auto) 1.7, Basophils (%) (Auto) 0.9, Sodium Level 137, Potassium Level 4.5, Chloride Level 102, Carbon Dioxide Level 32, Anion Gap 3L, Blood Urea Nitrogen 11, Creatinine 0.5L, Estimat Glomerular Filtration Rate > 60, Glucose Level 97, Calcium Level 9.3 Height (Feet): 5 Height (Inches): 7.00 Weight (Pounds): 103 General Appearance: lethargic EENT: normal ENT inspection Neck: normal alignment Cardiovascular: normal peripheral pulses, normal rate, regular rhythm Respiratory/Chest: chest wall non-tender, lungs clear, normal breath sounds Abdomen: normal bowel sounds, non tender, soft Extremities: normal inspection Edema: no edema noted Arm (L), no edema noted Arm (R), no edema noted Leg (L), no edema noted Leg (R), no edema noted Pedal (L), no edema noted Pedal (R), no edema noted Generalized Neurologic: motor weakness Skin: normal pigmentation, warm/dry Marito Ortega DO Apr 18, 2019 13:55
--- NOTE | 2019-04-18 14:20 | NUR ---
NURSE NOTES: Held scheduled 1400 verapamil dose as MD Sauer stated to hold for Systolic JACOB less andre n120. Order edited. Addendum: 04/18/19 at 1703 by MARTIN MANCINI RN RN Order edited and new dose was scheduled.
[2019-04-18 16:00] VITALS: BP 154/92
--- NOTE | 2019-04-18 16:56 | NUR ---
NURSE NOTES: Suctioned patient. Patient tolerated well.
--- NOTE | 2019-04-18 16:58 | NUR ---
NURSE NOTES: Started new feeding formula bottle.
[2019-04-18] MEDS: Morphine Sulfate 2mg/ml Inj(IV/IM USE ONLY) IVP PRN (17:08)
--- NOTE | 2019-04-18 19:29 | NUR ---
HAND-OFF: Report given to EDUAR Garcia.
--- NOTE | 2019-04-18 19:30 | NUR ---
NURSE NOTES: Pt. received laying in bed with head of bed elevated, side rails padded. Garcia draining, IV site asymptomatic, intact and patent, and gtube feeding running at 60cc/hr. Pt. awake with eyes open at this time, no indication of pain. Pt. coughing clear secretions and suctioned at the bedside, no respiratory distress noted. Bed is in the low and locked position, side rails are up, and call light is in reach. Will continue to monitor pt.'s coughing.
[2019-04-18 20:00] VITALS: BP 90/73
--- NOTE | 2019-04-18 21:30 | NUR ---
NURSE NOTES: Pt. presenting with coughing, secretions and requiring suctioning. Left a message with Dr. Sauer, awaiting response. Dr. Ortega also notified, Dr. Ortega ordered breathing treatments. Respiratory therapist contacted for breathing treatment.
[2019-04-18] MEDS ORDERED: Albuterol/Ipratropium 3ml neb HHN PRN (22:45)
--- NOTE | 2019-04-18 23:45 | Progress Note ---
DATE: 04/18/2019 SUBJECTIVE: This is a male patient who is 43 years old. He is admitted to the hospital with shortness of breath, generalized weakness, pneumonia, and sepsis, but he has altered mental status, confusion, disorganized thought process, and decline in cognition below his baseline. That is why, his attending physician has requested daily psychiatric consultation. MENTAL STATUS EXAMINATION: This is a 43-year-old male. Appearance is disheveled. Attitude, irritable and agitated. Affect, restricted. Intellect, poor. Mood, depressed and anxious. Motor activity, psychomotor agitation. Attention span is poor. Orientation x2. Speech is low volume, mostly slurred. Thought process, disorganized and illogical. Insight and judgment is poor. DIAGNOSIS: Major depressive disorder, mild, recurrent with psychotic features; rule out dementia with psychosis. PLAN: Treat this patient with a psychotropic regimen consisting of Ativan 1 mg per G-tube every 6 hours p.r.n. anxiety and agitation and Aricept 10 mg per G-tube daily. 20 minutes of behavioral management. Chart reviewed. Discussed with staff. Seen and assessed in his room. Osbaldo Bird M.D. DR: SAMI JOB#: [id number] CC:
[2019-04-19] VITALS: BP 120/82
--- NOTE | 2019-04-19 03:30 | NUR ---
NURSE NOTES: Pt. resting calmly in bed at this time. No coughing, no signs of respiratory distress, O2 Sat. 96% on 3L humidified oxygen. Suction available at bedside, head of bed elevated per gtube feeding protocol, and side rails are padded. IV site intact and patent, key draining, gtube running at 60cc/hr. Bed in the low and locked position, side rails are up, and call light is in reach.
[2019-04-19 04:00] VITALS: BP 115/72
[2019-04-19] MEDS: Cefepime HCl 1 GM in D5W 55 ML IVPB SCH (05:12)
[2019-04-19] MEDS: NovoLOG Insulin Flexpen SUBQ SCH ×4 (05:14→23:31)
[2019-04-19] MEDS: Verapamil 80mg tab GT SCH ×3 (05:28→21:11)
--- NOTE | 2019-04-19 07:05 | NUR ---
HAND-OFF: Report given to EDUAR Tabares.
[2019-04-19 07:16] LABS: HEMATOCRIT 32.9 % (42.0-52.0); HEMOGLOBIN 11.9 G/DL (14.2-18.0); MEAN CORPUSCULAR VOLUME 83 FL (80-99); PLATELET COUNT 511 K/UL (150-450); RED BLOOD COUNT 3.99 M/UL (4.70-6.10); RED CELL DISTRIBUTION WIDTH 18.8 % (11.6-14.8); WHITE BLOOD COUNT 19.1 K/UL (4.8-10.8)
[2019-04-19 07:20] LABS: ALANINE AMINOTRANSFERASE 63 U/L (12-78); ALBUMIN 2.5 G/DL (3.4-5.0); ALBUMIN/GLOBULIN RATIO 0.4 (1.0-2.7); ALKALINE PHOSPHATASE 89 U/L (46-116); ANION GAP 5 mmol/L (5-15); ASPARTATE AMINO TRANSFERASE 26 U/L (15-37); BILIRUBIN,TOTAL 0.5 MG/DL (0.2-1.0); BLOOD UREA NITROGEN 12 mg/dL (7-18); CALCIUM 9.2 MG/DL (8.5-10.1); CARBON DIOXIDE 31 MMOL/L (21-32); CHLORIDE 102 MMOL/L (98-107); CREATININE 0.5 MG/DL (0.55-1.30); PHOSPHORUS 3.4 MG/DL (2.5-4.9); POTASSIUM 3.9 MMOL/L (3.5-5.1); SODIUM 138 MMOL/L (136-145)
--- NOTE | 2019-04-19 07:30 | NUR ---
NURSE NOTES: Received patient on bed, asleep. IV site intact and patent. Gtube intact and patent. Garcia catheter intact and patent. Dressings dry and intact. Bed in locked position, call light in reach. Patient is non verbal. No signs of respiratory distress or pain. Room board updated, will continue to monitor.
[2019-04-19 08:00] VITALS: BP 109/76
[2019-04-19] MEDS: Multivitamins W/Minerals 15 ML UDC GT SCH (08:24)
[2019-04-19] MEDS: Donepezil 10mg tab GT SCH (08:24)
[2019-04-19] MEDS: Lactobacillus-GG tablet GT SCH (08:24)
[2019-04-19] MEDS: Heparin 5000 units/ml inj SUBQ SCH ×2 (08:27→21:13)
[2019-04-19] MEDS: NS IV SCH (08:27)
[2019-04-19] MEDS: PHENYTOIN IV SCH (08:27)
--- NOTE | 2019-04-19 08:59 | NUR ---
NURSE NOTES:WOUND CARE NOTES:Pt identified as A High risks for skin breakdown secondary to multiple comorbidities. Complete skin assessment done with primary nurse in attendance. Skin is very dry . An area of hyperpigmentation noted to Sacrococcygeal area. Both heels are dry but blanchable. No evidence of skin breakdown noted. Cavilon Skin Barrier wipes applied to all bony prominences and each bony prominence such as both scapulae ,both elbows, both hips,both knees -lateral and medial aspects,malleoli and both heels covered with Optifoam drsgs.Pt placed on an APM/JIM Mattress overlay. positioned on side with pillows and both heels floated off mattress with pillows.
--- NOTE | 2019-04-19 11:30 | Progress Note ---
DATE: 04/19/2019 SUBJECTIVE: This is a 43-year-old male patient with pneumonia, sepsis, generalized weakness, shortness of breath. Now, he has altered mental status, confusion, and overall decline in cognition below his baseline. That is why, his attending physician has requested daily psychiatric consultation. MENTAL STATUS EXAMINATION: This is a 43-year-old male. Appearance is disheveled. Attitude, irritable and agitated. Affect, guarded and restricted. Intellect poor. Mood, depressed and anxious. Motor activity, psychomotor agitation. Attention span is poor. Orientation x2. Speech is low volume, slurred. Thought process, disorganized and illogical. Insight and judgment is poor. DIAGNOSIS: Major depressive disorder, mild, recurrent with psychotic features, rule out dementia with psychosis. PLAN: Also continue Ativan 1 mg every 6 hours p.r.n. anxiety and agitation. Aricept 10 mg per G-tube daily and he will continue to be followed by Psychiatry throughout hospital course. A 20 minutes of behavioral management. Chart reviewed. Discussed with staff. Seen and assessed at the bedside. Osbaldo Bird M.D. DR: PADMINI JOB#: [id number] CC:
--- NOTE | 2019-04-19 11:38 | NUR ---
RD ASSESSMENT & RECOMMENDATIONS SEE CARE ACTIVITY FOR COMPLETE ASSESSMENT DAILY ESTIMATED NEEDS: Needs based on Severely underweight/ 45kg 35-40 kcals/kg 7186-4994 total kcals 1.5-2.0 g protein/kg 67-90 g total protein 25-35 mL/kg 1272-2708 total fluid mLs NUTRITION DIAGNOSIS: * Increased kcal/prot needs R/T severely underweight status and wt loss as evidenced by pt ~67% IBW, BMI of 15.5, w/ severe generalized wasting, possible significant wt loss of 50lbs/33% in <8 months as per report. 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 ENTERAL NUTRITION RECOMMENDATIONS: Jevity 1.2 @ 60ml/hr x 24 hrs to provide 1440ml, 1728kcal, 80g prot, 1162ml free water * Maintain current TF @goal rate of 60ml/hr x 24 hrs as tolerated * HOB over 30 degrees * Without IVF, water flush of 100ml q 6 hrs ADDITIONAL RECOMMENDATIONS: * Calibrated bedscale wt for accurate CBW -> weekly wt monitoring given h/o wt loss, severely underweight * Monitor lytes daily, replete as needed-> lytes wnl * Monitor BGs, need for carb controlled TF-> good glycemic control * Sacral wound photo-> rec WC eval Add UMER in 4oz H2O BID via GT (f/up w/ WC eval)
[2019-04-19 12:00] VITALS: BP 97/66
--- NOTE | 2019-04-19 13:32 | Pulmonology Progress Note ---
Assessment/Plan Problems: (1) Sepsis (2) Nosocomial pneumonia (3) Chronic tachycardia (4) Epilepsy (5) Hereditary cerebellar ataxia (6) Cavitary lung disease (7) PH-Dxcgnet-Zoiwiv disease (8) Feeding by G-tube Assessment/Plan wbc is higher again still tachy at 120 sputum has pseudomonas, pansensitive iv abx symptomatic treatment feeding by Gtube aspiration precaution Verapamil for chronic tachycardia, double the dose since, heart rate is low 100 monitor heart rate prbc prn Hem< 8 dvt prophylaxis. reviewed echo: normal EF Subjective Interval Events: opens eyes Allergies: Coded Allergies: No Known Allergies (Unverified , 04/11/19) Objective Last 24 Hour Vital Signs Date Time Temp Pulse Resp B/P (MAP) Pulse Ox O2 Delivery O2 Flow Rate FiO2 04/19/19 12:00 99.0 105 19 97/66 (76) 100 04/19/19 09:00 Nasal Cannula 6.0 04/19/19 08:00 98.6 109 21 109/76 (87) 98 04/19/19 05:28 108 112/72 04/19/19 05:21 99 Nasal Cannula 3.0 32 04/19/19 04:00 97.4 107 19 115/72 (86) 98 04/19/19 00:00 97.0 115 26 120/82 (95) 98 04/18/19 23:38 95 20 99 Nasal Cannula 3.0 32 04/18/19 23:38 97 20 100 Nasal Cannula 3.0 32 95 20 99 04/18/19 21:29 122 90/73 04/18/19 21:00 Nasal Cannula 6.0 04/18/19 20:00 98.5 122 23 90/73 (79) 93 04/18/19 17:19 133 154/92 04/18/19 16:00 99.3 133 22 154/92 (112) 95 Intake and Output 04/18/19 04/19/19 19:00 07:00 Intake Total 1855 ml 1525 ml Output Total 1500 ml 2400 ml Balance 355 ml -875 ml Intake Oral 0 ml Free Water 200 ml 300 ml IV Total 935 ml 505 ml Tube Feeding 720 ml 720 ml Output Urine Total 1500 ml 2400 ml # Bowel Movements 3 Objective General Appearance: no acute distress HEENT: normocephalic, anicteric Respiratory/Chest: chest wall non-tender, rhonchi Cardiovascular: normal peripheral pulses, normal rate, regular rhythm Abdomen: normal bowel sounds, soft, non tender Genitourinary: normal external genitalia Extremities: no cyanosis Laboratory Tests 04/19/19 05:02: White Blood Count 19.1H, Red Blood Count 3.99L, Hemoglobin 11.9L, Hematocrit 32.9L, Mean Corpuscular Volume 83, Mean Corpuscular Hemoglobin 29.7, Mean Corpuscular Hemoglobin Concent 36.0, Red Cell Distribution Width 18.8H, Platelet Count 511H, Mean Platelet Volume 7.3, Neutrophils (%) (Auto) , Lymphocytes (%) (Auto) , Monocytes (%) (Auto) , Eosinophils (%) (Auto) , Basophils (%) (Auto) , Differential Total Cells Counted 100, Neutrophils % ( Manual) 81H, Lymphocytes % (Manual) 16L, Monocytes % (Manual) 3, Eosinophils % ( Manual) 0, Basophils % (Manual) 0, Band Neutrophils 0, Platelet Estimate IncreasedH, Platelet Morphology Normal, Polychromasia 1+, Hypochromasia 1+, Anisocytosis 2+, Target Cells , Sodium Level 138, Potassium Level 3.9, Chloride Level 102, Carbon Dioxide Level 31, Anion Gap 5, Blood Urea Nitrogen 12, Creatinine 0.5L, Estimat Glomerular Filtration Rate > 60, Glucose Level 106, Calcium Level 9.2, Phosphorus Level 3.4, Magnesium Level 2.0, Total Bilirubin 0.5, Aspartate Amino Transf (AST/SGOT) 26, Alanine Aminotransferase (ALT/SGPT) 63, Alkaline Phosphatase 89, Total Protein 8.3H, Albumin 2.5L, Globulin 5.8, Albumin/Globulin Ratio 0.4L Current Medications Medications (Trade) Dose Ordered Sig/Kory Route PRN Reason Start Time Stop Time Status Last Admin Dose Admin Acetaminophen (Tylenol) 650 mg Q6H PRN GT Mild Pain/Temp > 100.5 04/16/19 17:30 05/11/19 17:29 Albuterol/ Ipratropium (Albuterol/ Ipratropium) 3 ml Q4H PRN HHN Shortness of Breath 04/18/19 22:45 04/23/19 22:44 04/18/19 23:39 Cefepime HCl 1 gm/ Dextrose 55 ml @ 110 mls/hr Q12H IVPB 04/16/19 18:00 04/20/19 17:59 04/19/19 05:12 Dextrose 1,000 ml @ 75 mls/hr [id number] IV 04/16/19 17:15 05/13/19 11:59 04/19/19 12:16 Dextrose (Dextrose 50%) 25 ml Q30M PRN IV Hypoglycemia 04/16/19 17:30 05/13/19 16:29 Dextrose (Dextrose 50%) 50 ml Q30M PRN IV Hypoglycemia 04/16/19 17:30 05/13/19 16:29 Donepezil HCl (Aricept) 10 mg DAILY GT 04/17/19 09:00 05/12/19 08:59 04/19/19 08:24 Heparin Sodium (Porcine) (Heparin 5000 units/ml) 5,000 units EVERY 12 HOURS SUBQ 04/16/19 21:00 05/12/19 10:59 04/19/19 08:27 Insulin Aspart (NovoLOG) Q6HR SUBQ 04/16/19 18:00 05/13/19 17:59 04/19/19 12:16 Lactobacillus Acidophilus (Culturelle) 1 tab DAILY GT 04/17/19 09:00 05/12/19 08:59 04/19/19 08:24 Lansoprazole (Prevacid) 30 mg DAILY GT 04/17/19 09:00 05/12/19 08:59 04/19/19 08:24 Lorazepam (Ativan) 1 mg Q6H PRN GT For Anxiety 04/16/19 17:30 04/20/19 17:29 04/18/19 21:23 Morphine Sulfate (Morphine Sulfate) 1 mg Q4H PRN IVP For Pain 4-6 04/16/19 17:30 04/19/19 17:29 04/18/19 17:08 Morphine Sulfate (Morphine Sulfate) 2 mg Q4H PRN IVP Severe Pain (Pain Scale 7-10) 04/16/19 17:30 04/19/19 17:29 Multivitamins (Multivitamins W/ Minerals 15ml Liquid) 15 ml DAILY GT 04/17/19 09:00 05/12/19 08:59 04/19/19 08:24 Ondansetron HCl (Zofran) 4 mg Q6H PRN GT Nausea & Vomiting 12/15/19 17:30 05/12/19 17:29 Phenytoin 300 mg/ Sodium Chloride 55 ml @ 110 mls/hr DAILY IV 04/17/19 09:00 05/17/19 08:59 04/19/19 08:27 Primidone (Mysoline) 100 mg QHS GT 04/16/19 21:00 05/12/19 20:59 04/18/19 21:02 Verapamil HCl (Calan) 80 mg EVERY 8 HOURS GT 04/18/19 14:45 05/16/19 14:44 04/18/19 17:19 Carlos Sauer MD Apr 19, 2019 13:32
--- NOTE | 2019-04-19 13:49 | Infectious Diseases Prog Note ---
Assessment/Plan Assessment/Plan Assessment: Sepsis PNA -04/16 CXR: Left greater than right bibasilar opacities may represent atelectasis versus pneumonia. Findings are decreased compared to prior exam. -CXR: Left basilar atelectasis and possible consolidation -sp cx PsA (ramirez S) -influenza sc neg -u/a neg Fever; SP Leukocytosis; decreasing Gram positive bacteremia- contaminant -04/11 Bcx 1/4 CONS; 04/12 Bcx NTD HTN dysphagia s/p GT cerebellar ataxia seizure disorder Alzheimer's dementia SNF resident Plan: - Start Zosyn given increasing WBCs and O2 requirements - Repeat CXR in AM -04/19 SP Cefepime #9 for PsA PNA -04/18 SP Azithromycin #7/7 -04/16 SP IV Vancomycin #6 -04/11 SP Ceftriaxone x1 -Monitor CBC/CMP, temperatures -GT care -aspiration precautions -CBC, CMP am -Cdiff if diarrhea Thank you for consulting [facility]. Will continue to follow along with you. Discussed with RN. Subjective Allergies: Coded Allergies: No Known Allergies (Unverified , 04/11/19) Subjective Afebrile WBC increased Pt now on NC 6L Objective Vital Signs Last 24 Hour Vital Signs Date Time Temp Pulse Resp B/P (MAP) Pulse Ox O2 Delivery O2 Flow Rate FiO2 04/19/19 12:00 99.0 105 19 97/66 (76) 100 04/19/19 09:00 Nasal Cannula 6.0 04/19/19 08:00 98.6 109 21 109/76 (87) 98 04/19/19 05:28 108 112/72 04/19/19 05:21 99 Nasal Cannula 3.0 32 04/19/19 04:00 97.4 107 19 115/72 (86) 98 04/19/19 00:00 97.0 115 26 120/82 (95) 98 04/18/19 23:38 95 20 99 Nasal Cannula 3.0 32 04/18/19 23:38 97 20 100 Nasal Cannula 3.0 32 95 20 99 04/18/19 21:29 122 90/73 04/18/19 21:00 Nasal Cannula 6.0 04/18/19 20:00 98.5 122 23 90/73 (79) 93 04/18/19 17:19 133 154/92 04/18/19 16:00 99.3 133 22 154/92 (112) 95 Height (Feet): 5 Height (Inches): 7.00 Weight (Pounds): 126 Objective GENERAL: NAD CARDIOVASCULAR: RRR, S1,S2 LUNGS: Coarse B/L ABDOMEN: Bowel sounds distant. Laboratory Tests Test 04/19/19 05:02 White Blood Count 19.1 K/UL (4.8-10.8) H Red Blood Count 3.99 M/UL (4.70-6.10) L Hemoglobin 11.9 G/DL (14.2-18.0) L Hematocrit 32.9 % (42.0-52.0) L Mean Corpuscular Volume 83 FL (80-99) Mean Corpuscular Hemoglobin 29.7 PG (27.0-31.0) Mean Corpuscular Hemoglobin Concent 36.0 G/DL (32.0-36.0) Red Cell Distribution Width 18.8 % (11.6-14.8) H Platelet Count 511 K/UL (150-450) H Mean Platelet Volume 7.3 FL (6.5-10.1) Neutrophils (%) (Auto) % (45.0-75.0) Lymphocytes (%) (Auto) % (20.0-45.0) Monocytes (%) (Auto) % (1.0-10.0) Eosinophils (%) (Auto) % (0.0-3.0) Basophils (%) (Auto) % (0.0-2.0) Differential Total Cells Counted 100 Neutrophils % (Manual) 81 % (45-75) H Lymphocytes % (Manual) 16 % (20-45) L Monocytes % (Manual) 3 % (1-10) Eosinophils % (Manual) 0 % (0-3) Basophils % (Manual) 0 % (0-2) Band Neutrophils 0 % (0-8) Platelet Estimate Increased H Platelet Morphology Normal Polychromasia 1+ Hypochromasia 1+ Anisocytosis 2+ Target Cells Sodium Level 138 MMOL/L (136-145) Potassium Level 3.9 MMOL/L (3.5-5.1) Chloride Level 102 MMOL/L (98-107) Carbon Dioxide Level 31 MMOL/L (21-32) Anion Gap 5 mmol/L (5-15) Blood Urea Nitrogen 12 mg/dL (7-18) Creatinine 0.5 MG/DL (0.55-1.30) L Estimat Glomerular Filtration Rate > 60 mL/min (>60) Glucose Level 106 MG/DL (74-106) Calcium Level 9.2 MG/DL (8.5-10.1) Phosphorus Level 3.4 MG/DL (2.5-4.9) Magnesium Level 2.0 MG/DL (1.8-2.4) Total Bilirubin 0.5 MG/DL (0.2-1.0) Aspartate Amino Transf (AST/SGOT) 26 U/L (15-37) Alanine Aminotransferase (ALT/SGPT) 63 U/L (12-78) Alkaline Phosphatase 89 U/L (46-116) Total Protein 8.3 G/DL (6.4-8.2) H Albumin 2.5 G/DL (3.4-5.0) L Globulin 5.8 g/dL Albumin/Globulin Ratio 0.4 (1.0-2.7) L Current Medications Medications (Trade) Dose Ordered Sig/Kory Route PRN Reason Start Time Stop Time Status Last Admin Dose Admin Acetaminophen (Tylenol) 650 mg Q6H PRN GT Mild Pain/Temp > 100.5 04/16/19 17:30 05/11/19 17:29 Albuterol/ Ipratropium (Albuterol/ Ipratropium) 3 ml Q4H PRN HHN Shortness of Breath 04/18/19 22:45 04/23/19 22:44 04/18/19 23:39 Cefepime HCl 1 gm/ Dextrose 55 ml @ 110 mls/hr Q12H IVPB 04/16/19 18:00 04/20/19 17:59 04/19/19 05:12 Dextrose 1,000 ml @ 75 mls/hr [id number] IV 04/16/19 17:15 05/13/19 11:59 04/19/19 12:16 Dextrose (Dextrose 50%) 25 ml Q30M PRN IV Hypoglycemia 04/16/19 17:30 05/13/19 16:29 Dextrose (Dextrose 50%) 50 ml Q30M PRN IV Hypoglycemia 04/16/19 17:30 05/13/19 16:29 Donepezil HCl (Aricept) 10 mg DAILY GT 04/17/19 09:00 05/12/19 08:59 04/19/19 08:24 Heparin Sodium (Porcine) (Heparin 5000 units/ml) 5,000 units EVERY 12 HOURS SUBQ 04/16/19 21:00 05/12/19 10:59 04/19/19 08:27 Insulin Aspart (NovoLOG) Q6HR SUBQ 04/16/19 18:00 05/13/19 17:59 04/19/19 12:16 Lactobacillus Acidophilus (Culturelle) 1 tab DAILY GT 04/17/19 09:00 05/12/19 08:59 04/19/19 08:24 Lansoprazole (Prevacid) 30 mg DAILY GT 04/17/19 09:00 05/12/19 08:59 04/19/19 08:24 Lorazepam (Ativan) 1 mg Q6H PRN GT For Anxiety 04/16/19 17:30 04/20/19 17:29 04/18/19 21:23 Morphine Sulfate (Morphine Sulfate) 1 mg Q4H PRN IVP For Pain 4-6 04/16/19 17:30 04/19/19 17:29 04/18/19 17:08 Morphine Sulfate (Morphine Sulfate) 2 mg Q4H PRN IVP Severe Pain (Pain Scale 7-10) 04/16/19 17:30 04/19/19 17:29 Multivitamins (Multivitamins W/ Minerals 15ml Liquid) 15 ml DAILY GT 04/17/19 09:00 05/12/19 08:59 04/19/19 08:24 Ondansetron HCl (Zofran) 4 mg Q6H PRN GT Nausea & Vomiting 04/16/19 17:30 05/12/19 17:29 Phenytoin 300 mg/ Sodium Chloride 55 ml @ 110 mls/hr DAILY IV 04/17/19 09:00 05/17/19 08:59 04/19/19 08:27 Primidone (Mysoline) 100 mg QHS GT 04/16/19 21:00 05/12/19 20:59 04/18/19 21:02 Verapamil HCl (Calan) 80 mg EVERY 8 HOURS GT 04/18/19 14:45 05/16/19 14:44 04/18/19 17:19 Rayshawn Soni MD Apr 19, 2019 13:49
--- NOTE | 2019-04-19 13:51 | NUR ---
NURSE NOTES: Started new feeding bottle. CHanged Vacuum container.
--- NOTE | 2019-04-19 14:00 | NUR ---
NURSE NOTES: Patient dressings changed.
--- NOTE | 2019-04-19 14:54 | General Progress Note ---
Assessment/Plan Problem List: (1) Pneumonia ICD Codes: J18.9 - Pneumonia, unspecified organism SNOMED: 058523688 (2) Sickle cell anemia ICD Codes: D57.1 - Sickle-cell disease without crisis SNOMED: 504393189 (3) Sepsis ICD Codes: A41.9 - Sepsis, unspecified organism SNOMED: 37788816 Status: unchanged Assessment/Plan: pt diet abx psyc neuro eval cbc bmp am Subjective Constitutional: Reports: weakness Allergies: Coded Allergies: No Known Allergies (Unverified , 04/11/19) All Systems: reviewed and negative except above Subjective o2nc sleepy calm Objective Last 24 Hour Vital Signs Date Time Temp Pulse Resp B/P (MAP) Pulse Ox O2 Delivery O2 Flow Rate FiO2 04/19/19 12:00 99.0 105 19 97/66 (76) 100 04/19/19 09:00 Nasal Cannula 6.0 04/19/19 08:00 98.6 109 21 109/76 (87) 98 04/19/19 05:28 108 112/72 04/19/19 05:21 99 Nasal Cannula 3.0 32 04/19/19 04:00 97.4 107 19 115/72 (86) 98 04/19/19 00:00 97.0 115 26 120/82 (95) 98 04/18/19 23:38 95 20 99 Nasal Cannula 3.0 32 04/18/19 23:38 97 20 100 Nasal Cannula 3.0 32 95 20 99 04/18/19 21:29 122 90/73 04/18/19 21:00 Nasal Cannula 6.0 04/18/19 20:00 98.5 122 23 90/73 (79) 93 04/18/19 17:19 133 154/92 04/18/19 16:00 99.3 133 22 154/92 (112) 95 Intake and Output 04/18/19 04/19/19 19:00 07:00 Intake Total 1855 ml 1525 ml Output Total 1500 ml 2400 ml Balance 355 ml -875 ml Intake Oral 0 ml Free Water 200 ml 300 ml IV Total 935 ml 505 ml Tube Feeding 720 ml 720 ml Output Urine Total 1500 ml 2400 ml # Bowel Movements 3 Laboratory Tests 04/19/19 05:02: White Blood Count 19.1H, Red Blood Count 3.99L, Hemoglobin 11.9L, Hematocrit 32.9L, Mean Corpuscular Volume 83, Mean Corpuscular Hemoglobin 29.7, Mean Corpuscular Hemoglobin Concent 36.0, Red Cell Distribution Width 18.8H, Platelet Count 511H, Mean Platelet Volume 7.3, Neutrophils (%) (Auto) , Lymphocytes (%) (Auto) , Monocytes (%) (Auto) , Eosinophils (%) (Auto) , Basophils (%) (Auto) , Differential Total Cells Counted 100, Neutrophils % ( Manual) 81H, Lymphocytes % (Manual) 16L, Monocytes % (Manual) 3, Eosinophils % ( Manual) 0, Basophils % (Manual) 0, Band Neutrophils 0, Platelet Estimate IncreasedH, Platelet Morphology Normal, Polychromasia 1+, Hypochromasia 1+, Anisocytosis 2+, Target Cells , Sodium Level 138, Potassium Level 3.9, Chloride Level 102, Carbon Dioxide Level 31, Anion Gap 5, Blood Urea Nitrogen 12, Creatinine 0.5L, Estimat Glomerular Filtration Rate > 60, Glucose Level 106, Calcium Level 9.2, Phosphorus Level 3.4, Magnesium Level 2.0, Total Bilirubin 0.5, Aspartate Amino Transf (AST/SGOT) 26, Alanine Aminotransferase (ALT/SGPT) 63, Alkaline Phosphatase 89, Total Protein 8.3H, Albumin 2.5L, Globulin 5.8, Albumin/Globulin Ratio 0.4L Height (Feet): 5 Height (Inches): 7.00 Weight (Pounds): 126 General Appearance: lethargic EENT: normal ENT inspection Neck: normal alignment Cardiovascular: normal peripheral pulses, normal rate, regular rhythm Respiratory/Chest: chest wall non-tender, lungs clear, normal breath sounds Abdomen: normal bowel sounds, non tender, soft Extremities: normal inspection Edema: no edema noted Arm (L), no edema noted Arm (R), no edema noted Leg (L), no edema noted Leg (R), no edema noted Pedal (L), no edema noted Pedal (R), no edema noted Generalized Neurologic: motor weakness Skin: normal pigmentation, warm/dry Marito Ortega DO Apr 19, 2019 14:54
[2019-04-19 16:00] VITALS: BP 141/102
[2019-04-19] MEDS: Piperacillin/Tazobactam 3.375 GM in NS 110 ML IVPB SCH ×2 (16:02→23:16)
--- NOTE | 2019-04-19 17:01 | NUR ---
NURSE NOTES: Patiejnt suctioned by RT. Patient tolerated well.
[2019-04-19] MEDS: Acetaminophen 650mg/20.3ml GT PRN (18:25)
--- NOTE | 2019-04-19 19:19 | NUR ---
HAND-OFF: Report given to EDUAR Salter.
--- NOTE | 2019-04-19 19:30 | NUR ---
NURSE NOTES: Received patient in bed. A&OX0, non verbal. NC 4L on, suction performed. IV site patent and intact. G-tube in place, running Jevity 1.2 60cc/hr, flushed, elevated HOB. Bed in lowest position. Call light within reach. Will continue to monitor.
[2019-04-19 20:00] VITALS: BP 124/87
[2019-04-20] VITALS (7 sets, daily range): BP systolic 102–148; BP diastolic 71–100
[2019-04-20] MEDS: Verapamil 80mg tab GT SCH ×3 (05:58→22:00)
[2019-04-20] MEDS: NovoLOG Insulin Flexpen SUBQ SCH ×4 (06:00→23:41)
[2019-04-20] MEDS: Piperacillin/Tazobactam 3.375 GM in NS 110 ML IVPB SCH ×3 (06:01→23:41)
[2019-04-20 06:13] LABS: BASOPHILS % (AUTO) 1.2 % (0.0-2.0); EOSINOPHILS % (AUTO) 0.7 % (0.0-3.0); HEMATOCRIT 37.4 % (42.0-52.0); LYMPHOCYTES % (AUTO) 7.2 % (20.0-45.0); MEAN CORPUSCULAR VOLUME 84 FL (80-99); MONOCYTES % (AUTO) 7.9 % (1.0-10.0); PLATELET COUNT 624 K/UL (150-450); RED BLOOD COUNT 4.46 M/UL (4.70-6.10); RED CELL DISTRIBUTION WIDTH 18.3 % (11.6-14.8); WHITE BLOOD COUNT 15.4 K/UL (4.8-10.8)
[2019-04-20 06:42] LABS: ANION GAP 10 mmol/L (5-15); BLOOD UREA NITROGEN 13 mg/dL (7-18); CALCIUM 9.8 MG/DL (8.5-10.1); CARBON DIOXIDE 29 MMOL/L (21-32); CHLORIDE 102 MMOL/L (98-107); CREATININE 0.7 MG/DL (0.55-1.30); SODIUM 141 MMOL/L (136-145)
--- NOTE | 2019-04-20 07:21 | NUR ---
HAND-OFF: Report given to Makayla WITT.
--- NOTE | 2019-04-20 07:37 | NUR ---
NURSE NOTES: REceived report from EDUAR Lipscomb. patient in bed. sleeping. no respiratory distress noted with o2 4l via NC. no facial grimacing. F/c draining. IV ib LH 22 running d5w@75/hr. IV site intact. GTF running @60/hr. high flower position at all times. seizure precaution. side rails padded. low bed and locked. call light within reach. alarm on. will continue to provide plan of care
--- NOTE | 2019-04-20 08:56 | NUR ---
NURSE NOTES: HR 142. BP 141/97. notified and waiting for the further order.
[2019-04-20] MEDS: Donepezil 10mg tab GT SCH (08:58)
[2019-04-20] MEDS: Lactobacillus-GG tablet GT SCH (08:58)
[2019-04-20] MEDS: Multivitamins W/Minerals 15 ML UDC GT SCH (08:58)
[2019-04-20] MEDS: NS IV SCH (09:00)
[2019-04-20] MEDS: PHENYTOIN IV SCH (09:00)
[2019-04-20] MEDS: Heparin 5000 units/ml inj SUBQ SCH ×2 (09:00→20:55)
--- NOTE | 2019-04-20 10:25 | NUR ---
NURSE NOTES: received order from Dr. Sauer. Ativan 1mg IV q4hrs for anxiety. order noted and carried out.
--- NOTE | 2019-04-20 12:05 | Pulmonology Progress Note ---
Assessment/Plan Problems: (1) Sepsis (2) Nosocomial pneumonia (3) Chronic tachycardia (4) Epilepsy (5) Hereditary cerebellar ataxia (6) Cavitary lung disease (7) KT-Qfxrevh-Fpsvwm disease (8) Feeding by G-tube Assessment/Plan wbc is higher again still tachy at 120 sputum has pseudomonas, pansensitive iv abx symptomatic treatment feeding by Gtube aspiration precaution Verapamil for chronic tachycardia, double the dose since, heart rate is low 100 monitor heart rate prbc prn Hem< 8 dvt prophylaxis. reviewed echo: normal EF Subjective ROS Limited/Unobtainable: No Constitutional: Reports: no symptoms Allergies: Coded Allergies: No Known Allergies (Unverified , 04/11/19) Objective Last 24 Hour Vital Signs Date Time Temp Pulse Resp B/P (MAP) Pulse Ox O2 Delivery O2 Flow Rate FiO2 04/20/19 09:40 97.7 136 22 120/93 (102) 100 04/20/19 09:00 Nasal Cannula 4.0 04/20/19 08:17 96 Nasal Cannula 3.0 32 04/20/19 08:14 138 22 96 Nasal Cannula 3.0 32 04/20/19 08:00 99.3 142 22 141/97 (112) 94 04/20/19 05:58 139 129/89 04/20/19 04:00 97.8 139 22 129/89 (102) 98 04/20/19 00:00 97.3 124 21 129/100 (110) 99 04/19/19 21:11 126 124/87 04/19/19 21:00 Nasal Cannula 4.0 04/19/19 20:00 97.7 126 22 124/87 (99) 100 04/19/19 16:01 120 140/102 04/19/19 16:00 99.0 108 18 141/102 (115) 100 Intake and Output 04/19/19 04/20/19 18:59 06:59 Intake Total 1615.0 ml 1580.0 ml Output Total 4000 ml 500 ml Balance -2385.0 ml 1080.0 ml Intake Oral 0 ml 0 ml Free Water 260 ml 260 ml IV Total 635.0 ml 540.0 ml Tube Feeding 720 ml 780 ml Output Urine Total 4000 ml 500 ml # Voids 2 # Bowel Movements 4 1 Objective General Appearance: no acute distress HEENT: normocephalic, anicteric Respiratory/Chest: chest wall non-tender, rhonchi Cardiovascular: normal peripheral pulses, normal rate, regular rhythm Abdomen: normal bowel sounds, soft, non tender Genitourinary: normal external genitalia Extremities: no cyanosis Laboratory Tests 04/20/19 05:07: White Blood Count 15.4H, Red Blood Count 4.46L, Hemoglobin 13.0L, Hematocrit 37.4L, Mean Corpuscular Volume 84, Mean Corpuscular Hemoglobin 29.0, Mean Corpuscular Hemoglobin Concent 34.6, Red Cell Distribution Width 18.3H, Platelet Count 624H, Mean Platelet Volume 7.1, Neutrophils (%) (Auto) 83.0H, Lymphocytes (%) (Auto) 7.2L, Monocytes (%) (Auto) 7.9, Eosinophils (%) (Auto) 0.7, Basophils (%) (Auto) 1.2, Sodium Level 141, Potassium Level 4.0, Chloride Level 102, Carbon Dioxide Level 29, Anion Gap 10, Blood Urea Nitrogen 13, Creatinine 0.7, Estimat Glomerular Filtration Rate > 60, Glucose Level 128H, Calcium Level 9.8 Current Medications Medications (Trade) Dose Ordered Sig/Kory Route PRN Reason Start Time Stop Time Status Last Admin Dose Admin Acetaminophen (Tylenol) 650 mg Q6H PRN GT Mild Pain/Temp > 100.5 04/16/19 17:30 05/11/19 17:29 04/19/19 18:25 Albuterol/ Ipratropium (Albuterol/ Ipratropium) 3 ml Q4H PRN HHN Shortness of Breath 04/18/19 22:45 04/23/19 22:44 04/18/19 23:39 Dextrose 1,000 ml @ 75 mls/hr [id number] IV 04/16/19 17:15 05/13/19 11:59 04/19/19 23:32 Dextrose (Dextrose 50%) 25 ml Q30M PRN IV Hypoglycemia 04/16/19 17:30 05/13/19 16:29 Dextrose (Dextrose 50%) 50 ml Q30M PRN IV Hypoglycemia 04/16/19 17:30 05/13/19 16:29 Donepezil HCl (Aricept) 10 mg DAILY GT 04/17/19 09:00 05/12/19 08:59 04/20/19 08:58 Heparin Sodium (Porcine) (Heparin 5000 units/ml) 5,000 units EVERY 12 HOURS SUBQ 04/16/19 21:00 05/12/19 10:59 04/20/19 09:00 Insulin Aspart (NovoLOG) Q6HR SUBQ 04/16/19 18:00 05/13/19 17:59 04/20/19 06:00 Lactobacillus Acidophilus (Culturelle) 1 tab DAILY GT 04/17/19 09:00 05/12/19 08:59 04/20/19 08:58 Lansoprazole (Prevacid) 30 mg DAILY GT 04/17/19 09:00 05/12/19 08:59 04/20/19 08:58 Lorazepam (Ativan 2mg/ml 1ml) 1 mg Q4H PRN IV For Anxiety 04/20/19 10:30 04/27/19 10:29 Lorazepam (Ativan) 1 mg Q6H PRN GT For Anxiety 04/16/19 17:30 04/20/19 17:29 04/18/19 21:23 Multivitamins (Multivitamins W/ Minerals 15ml Liquid) 15 ml DAILY GT 04/17/19 09:00 05/12/19 08:59 04/20/19 08:58 Ondansetron HCl (Zofran) 4 mg Q6H PRN GT Nausea & Vomiting 04/16/19 17:30 05/12/19 17:29 Phenytoin 300 mg/ Sodium Chloride 55 ml @ 110 mls/hr DAILY IV 04/17/19 09:00 05/17/19 08:59 04/20/19 09:00 Piperacillin Sod/ Tazobactam Sod 3.375 gm/Sodium Chloride 110 ml @ 27.5 mls/hr Q8H IVPB 04/19/19 15:00 04/26/19 14:59 04/20/19 06:01 Primidone (Mysoline) 100 mg QHS GT 04/16/19 21:00 05/12/19 20:59 04/19/19 21:11 Verapamil HCl (Calan) 80 mg EVERY 8 HOURS GT 04/18/19 14:45 05/16/19 14:44 04/20/19 05:58 Carlos Sauer MD Apr 20, 2019 12:05
--- NOTE | 2019-04-20 13:02 | NUR ---
RADIOLOGY DEPT., CHEST X-RAY DONE.P.DYE
--- NOTE | 2019-04-20 14:38 | General Progress Note ---
Assessment/Plan Problem List: (1) Pneumonia ICD Codes: J18.9 - Pneumonia, unspecified organism SNOMED: 881342779 (2) Sickle cell anemia ICD Codes: D57.1 - Sickle-cell disease without crisis SNOMED: 482907691 (3) Sepsis ICD Codes: A41.9 - Sepsis, unspecified organism SNOMED: 68765089 Status: unchanged Assessment/Plan: pt diet abx psyc neuro eval cbc bmp am Subjective Constitutional: Reports: weakness Allergies: Coded Allergies: No Known Allergies (Unverified , 04/11/19) All Systems: reviewed and negative except above Subjective o2nc sleepy calm Objective Last 24 Hour Vital Signs Date Time Temp Pulse Resp B/P (MAP) Pulse Ox O2 Delivery O2 Flow Rate FiO2 04/20/19 13:43 130 102/69 04/20/19 12:00 99.0 120 18 138/89 (105) 98 04/20/19 09:40 97.7 136 22 120/93 (102) 100 04/20/19 09:00 Nasal Cannula 4.0 04/20/19 08:17 96 Nasal Cannula 3.0 32 04/20/19 08:14 138 22 96 Nasal Cannula 3.0 32 04/20/19 08:00 99.3 142 22 141/97 (112) 94 04/20/19 05:58 139 129/89 04/20/19 04:00 97.8 139 22 129/89 (102) 98 04/20/19 00:00 97.3 124 21 129/100 (110) 99 04/19/19 21:11 126 124/87 04/19/19 21:00 Nasal Cannula 4.0 04/19/19 20:00 97.7 126 22 124/87 (99) 100 04/19/19 16:01 120 140/102 04/19/19 16:00 99.0 108 18 141/102 (115) 100 Intake and Output 04/19/19 04/20/19 19:00 07:00 Intake Total 1615.0 ml 1547.5 ml Output Total 3200 ml 500 ml Balance -1585.0 ml 1047.5 ml Intake Oral 0 ml 0 ml Free Water 260 ml 260 ml IV Total 635.0 ml 567.5 ml Tube Feeding 720 ml 720 ml Output Urine Total 3200 ml 500 ml # Voids 2 # Bowel Movements 3 1 Laboratory Tests 04/20/19 05:07: White Blood Count 15.4H, Red Blood Count 4.46L, Hemoglobin 13.0L, Hematocrit 37.4L, Mean Corpuscular Volume 84, Mean Corpuscular Hemoglobin 29.0, Mean Corpuscular Hemoglobin Concent 34.6, Red Cell Distribution Width 18.3H, Platelet Count 624H, Mean Platelet Volume 7.1, Neutrophils (%) (Auto) 83.0H, Lymphocytes (%) (Auto) 7.2L, Monocytes (%) (Auto) 7.9, Eosinophils (%) (Auto) 0.7, Basophils (%) (Auto) 1.2, Sodium Level 141, Potassium Level 4.0, Chloride Level 102, Carbon Dioxide Level 29, Anion Gap 10, Blood Urea Nitrogen 13, Creatinine 0.7, Estimat Glomerular Filtration Rate > 60, Glucose Level 128H, Calcium Level 9.8 Height (Feet): 5 Height (Inches): 7.00 Weight (Pounds): 126 General Appearance: lethargic EENT: normal ENT inspection Neck: normal alignment Cardiovascular: normal peripheral pulses, normal rate, regular rhythm Respiratory/Chest: chest wall non-tender, lungs clear, normal breath sounds Abdomen: normal bowel sounds, non tender, soft Extremities: normal inspection Edema: no edema noted Arm (L), no edema noted Arm (R), no edema noted Leg (L), no edema noted Leg (R), no edema noted Pedal (L), no edema noted Pedal (R), no edema noted Generalized Neurologic: motor weakness Skin: normal pigmentation, warm/dry Marito Ortgea DO Apr 20, 2019 14:38
--- NOTE | 2019-04-20 15:05 | Infectious Diseases Prog Note ---
Assessment/Plan Assessment/Plan Assessment: Sepsis PNA -04/16 CXR: Left greater than right bibasilar opacities may represent atelectasis versus pneumonia. Findings are decreased compared to prior exam. -CXR: Left basilar atelectasis and possible consolidation -sp cx PsA (ramirez S) -influenza sc neg -u/a neg Fever; SP Leukocytosis; decreasing Gram positive bacteremia- contaminant -04/11 Bcx 1/4 CONS; 04/12 Bcx NTD HTN dysphagia s/p GT cerebellar ataxia seizure disorder Alzheimer's dementia SNF resident Plan: - Continue Zosyn #1 given increasing WBCs and O2 requirements -04/19 SP Cefepime #9 for PsA PNA -04/18 SP Azithromycin #7/7 -04/16 SP IV Vancomycin #6 -04/11 SP Ceftriaxone x1 -Monitor CBC/CMP, temperatures -GT care -aspiration precautions -CBC, CMP am -Cdiff if diarrhea Thank you for consulting [facility]. Will continue to follow along with you. Discussed with RN. Subjective Allergies: Coded Allergies: No Known Allergies (Unverified , 04/11/19) Subjective Afebrile WBC decreased to 15 Pt now on NC 4L Objective Vital Signs Last 24 Hour Vital Signs Date Time Temp Pulse Resp B/P (MAP) Pulse Ox O2 Delivery O2 Flow Rate FiO2 04/20/19 13:43 130 102/69 04/20/19 12:00 99.0 120 18 138/89 (105) 98 04/20/19 09:40 97.7 136 22 120/93 (102) 100 04/20/19 09:00 Nasal Cannula 4.0 04/20/19 08:17 96 Nasal Cannula 3.0 32 04/20/19 08:14 138 22 96 Nasal Cannula 3.0 32 04/20/19 08:00 99.3 142 22 141/97 (112) 94 04/20/19 05:58 139 129/89 04/20/19 04:00 97.8 139 22 129/89 (102) 98 04/20/19 00:00 97.3 124 21 129/100 (110) 99 04/19/19 21:11 126 124/87 04/19/19 21:00 Nasal Cannula 4.0 04/19/19 20:00 97.7 126 22 124/87 (99) 100 04/19/19 16:01 120 140/102 04/19/19 16:00 99.0 108 18 141/102 (115) 100 Height (Feet): 5 Height (Inches): 7.00 Weight (Pounds): 126 Objective GENERAL: NAD, Satting well CARDIOVASCULAR: RRR, S1,S2 LUNGS: Coarse B/L ABDOMEN: Bowel sounds distant. Laboratory Tests Test 04/20/19 05:07 White Blood Count 15.4 K/UL (4.8-10.8) H Red Blood Count 4.46 M/UL (4.70-6.10) L Hemoglobin 13.0 G/DL (14.2-18.0) L Hematocrit 37.4 % (42.0-52.0) L Mean Corpuscular Volume 84 FL (80-99) Mean Corpuscular Hemoglobin 29.0 PG (27.0-31.0) Mean Corpuscular Hemoglobin Concent 34.6 G/DL (32.0-36.0) Red Cell Distribution Width 18.3 % (11.6-14.8) H Platelet Count 624 K/UL (150-450) H Mean Platelet Volume 7.1 FL (6.5-10.1) Neutrophils (%) (Auto) 83.0 % (45.0-75.0) H Lymphocytes (%) (Auto) 7.2 % (20.0-45.0) L Monocytes (%) (Auto) 7.9 % (1.0-10.0) Eosinophils (%) (Auto) 0.7 % (0.0-3.0) Basophils (%) (Auto) 1.2 % (0.0-2.0) Sodium Level 141 MMOL/L (136-145) Potassium Level 4.0 MMOL/L (3.5-5.1) Chloride Level 102 MMOL/L (98-107) Carbon Dioxide Level 29 MMOL/L (21-32) Anion Gap 10 mmol/L (5-15) Blood Urea Nitrogen 13 mg/dL (7-18) Creatinine 0.7 MG/DL (0.55-1.30) Estimat Glomerular Filtration Rate > 60 mL/min (>60) Glucose Level 128 MG/DL (74-106) H Calcium Level 9.8 MG/DL (8.5-10.1) Current Medications Medications (Trade) Dose Ordered Sig/Kory Route PRN Reason Start Time Stop Time Status Last Admin Dose Admin Acetaminophen (Tylenol) 650 mg Q6H PRN GT Mild Pain/Temp > 100.5 04/16/19 17:30 05/11/19 17:29 04/19/19 18:25 Albuterol/ Ipratropium (Albuterol/ Ipratropium) 3 ml Q4H PRN HHN Shortness of Breath 04/18/19 22:45 04/23/19 22:44 04/18/19 23:39 Dextrose 1,000 ml @ 75 mls/hr [id number] IV 04/16/19 17:15 05/13/19 11:59 04/19/19 23:32 Dextrose (Dextrose 50%) 25 ml Q30M PRN IV Hypoglycemia 04/16/19 17:30 05/13/19 16:29 Dextrose (Dextrose 50%) 50 ml Q30M PRN IV Hypoglycemia 04/16/19 17:30 05/13/19 16:29 Donepezil HCl (Aricept) 10 mg DAILY GT 04/17/19 09:00 05/12/19 08:59 04/20/19 08:58 Heparin Sodium (Porcine) (Heparin 5000 units/ml) 5,000 units EVERY 12 HOURS SUBQ 04/16/19 21:00 05/12/19 10:59 04/20/19 09:00 Insulin Aspart (NovoLOG) Q6HR SUBQ 04/16/19 18:00 05/13/19 17:59 04/20/19 12:14 Lactobacillus Acidophilus (Culturelle) 1 tab DAILY GT 04/17/19 09:00 05/12/19 08:59 04/20/19 08:58 Lansoprazole (Prevacid) 30 mg DAILY GT 04/17/19 09:00 05/12/19 08:59 04/20/19 08:58 Lorazepam (Ativan 2mg/ml 1ml) 1 mg Q4H PRN IV For Anxiety 04/20/19 10:30 04/27/19 10:29 Lorazepam (Ativan) 1 mg Q6H PRN GT For Anxiety 04/16/19 17:30 04/20/19 17:29 04/18/19 21:23 Multivitamins (Multivitamins W/ Minerals 15ml Liquid) 15 ml DAILY GT 04/17/19 09:00 05/12/19 08:59 04/20/19 08:58 Ondansetron HCl (Zofran) 4 mg Q6H PRN GT Nausea & Vomiting 04/16/19 17:30 05/12/19 17:29 Phenytoin 300 mg/ Sodium Chloride 55 ml @ 110 mls/hr DAILY IV 04/17/19 09:00 05/17/19 08:59 04/20/19 09:00 Piperacillin Sod/ Tazobactam Sod 3.375 gm/Sodium Chloride 110 ml @ 27.5 mls/hr Q8H IVPB 04/19/19 15:00 04/26/19 14:59 04/20/19 14:56 Primidone (Mysoline) 100 mg QHS GT 04/16/19 21:00 05/12/19 20:59 04/19/19 21:11 Verapamil HCl (Calan) 80 mg EVERY 8 HOURS GT 04/18/19 14:45 05/16/19 14:44 04/20/19 05:58 Rayshawn Soni MD Apr 20, 2019 15:05
--- NOTE | 2019-04-20 15:12 | Diagnostic Imaging Report ---
Indication: Cough Technique: One view of the chest Comparison: 04/19/2019 Findings: At hemidiaphragm is elevated. There is slightly less atelectasis at the left lung base. The remainder the lungs and pleural spaces are clear. There is central bronchial wall thickening again demonstrated. The heart size is normal. Impression: Left basilar atelectasis No definite acute process
[2019-04-20] MEDS: LORazepam Inj 2mg/ml 1ml IV PRN (15:29)
--- NOTE | 2019-04-20 15:45 | Progress Note ---
DATE: 04/20/2019 SUBJECTIVE: This is a 43-year-old male with sepsis, pneumonia, generalized weakness, shortness of breath, altered mental status, and decline in cognition below his baseline. That is why, his attending has requested daily psychiatric consultation. MENTAL STATUS EXAMINATION: This is a 43-year-old male. Appearance is disheveled. Attitude, irritable and agitated. Affect, guarded and restricted. Intellect poor. Mood, depressed and anxious. Motor activity, psychomotor agitation. Attention span is poor. Orientation x2. Speech is low volume, slurred. Thought process, disorganized and illogical. Insight and judgment is poor. DIAGNOSIS: Major depressive disorder, mild, recurrent with psychotic features, rule out dementia with psychosis. PLAN: Ativan 1 every 6 hours p.r.n. anxiety and agitation, Aricept 10 mg per G-tube at bedtime. 20 minutes of reality-based supportive psychotherapy. Chart reviewed. Discussed with staff. Seen and assessed at bedside. Osbaldo Bird M.D. DR: CHRISTOPHER JOB#: [id number] CC:
--- NOTE | 2019-04-20 19:08 | NUR ---
HAND-OFF: Report given to EDUAR Lipscomb.
--- NOTE | 2019-04-20 19:30 | NUR ---
NURSE NOTES: Received patient in bed. A&OX1, non verbal. NC 3L on. IV site patent and intact. G-tube in place, running Jevity 1.2 60cc/hr, 0cc residual noted, flushed, elevated HOB. Bed in lowest position. Call light within reach. Will continue to monitor.
[2019-04-20] MEDS: Acetaminophen 650mg/20.3ml GT PRN (20:56)
[2019-04-21] VITALS: BP 105/75
[2019-04-21 04:00] VITALS: BP 135/99
[2019-04-21] MEDS: Verapamil 80mg tab GT SCH ×3 (06:23→22:00)
[2019-04-21] MEDS: NovoLOG Insulin Flexpen SUBQ SCH ×4 (06:24→23:47)
[2019-04-21] MEDS: Piperacillin/Tazobactam 3.375 GM in NS 110 ML IVPB SCH ×3 (06:25→22:44)
--- NOTE | 2019-04-21 07:10 | NUR ---
HAND-OFF: Report given to Makayla WITT.
--- NOTE | 2019-04-21 07:11 | NUR ---
NURSE NOTES: received report from EDUAR Lipscomb. patient in bed. open eyes.non verbal. no respiratory distress noted with O2 4lvia nc. tachycardia. no facial grimacing noted. GTF running jeviti 1.2 @60. GT site intact. F/C draining. yellow. no hematuria noted. IV on LFA 22 running fluid and zosyn. HOB at all times. contact isolation. PPE at all times. bed in the lowest position and locked. alarm on. call light within reach. will continue to provide plan of care.
[2019-04-21 07:27] LABS: BASOPHILS % (AUTO) 1.7 % (0.0-2.0); EOSINOPHILS % (AUTO) 0.3 % (0.0-3.0); HEMATOCRIT 36.6 % (42.0-52.0); MEAN CORPUSCULAR VOLUME 82 FL (80-99); MONOCYTES % (AUTO) 7.7 % (1.0-10.0); NEUTROPHILS % (AUTO) 82.3 % (45.0-75.0); PLATELET COUNT 607 K/UL (150-450); RED BLOOD COUNT 4.46 M/UL (4.70-6.10); RED CELL DISTRIBUTION WIDTH 18.1 % (11.6-14.8); WHITE BLOOD COUNT 15.9 K/UL (4.8-10.8)
[2019-04-21 07:52] LABS: ALANINE AMINOTRANSFERASE 72 U/L (12-78); ALBUMIN 2.4 G/DL (3.4-5.0); ALBUMIN/GLOBULIN RATIO 0.4 (1.0-2.7); ALKALINE PHOSPHATASE 92 U/L (46-116); ANION GAP 8 mmol/L (5-15); ASPARTATE AMINO TRANSFERASE 44 U/L (15-37); BILIRUBIN,TOTAL 0.5 MG/DL (0.2-1.0); BLOOD UREA NITROGEN 14 mg/dL (7-18); CALCIUM 9.3 MG/DL (8.5-10.1); CARBON DIOXIDE 29 MMOL/L (21-32); CHLORIDE 103 MMOL/L (98-107); CREATININE 0.7 MG/DL (0.55-1.30); POTASSIUM 4.4 MMOL/L (3.5-5.1); SODIUM 140 MMOL/L (136-145)
[2019-04-21 08:00] VITALS: BP 109/73
[2019-04-21] MEDS: Donepezil 10mg tab GT SCH (08:18)
[2019-04-21] MEDS: Multivitamins W/Minerals 15 ML UDC GT SCH (08:18)
[2019-04-21] MEDS: Lactobacillus-GG tablet GT SCH (08:18)
[2019-04-21] MEDS: Heparin 5000 units/ml inj SUBQ SCH ×2 (08:19→20:31)
--- NOTE | 2019-04-21 08:25 | Pulmonology Progress Note ---
Assessment/Plan Assessment/Plan ASSESSMENT Sepsis Pneumonia Cavitary lung disease Seizure disorder Dysphagia ,feeding by G-tube Chronic tachycardia Cerebellar ataxia Alzheimer dementia PLAN of CARE MS floor IVF O2 HHN prn fup with CXR abx as per ID recs SCX+ Pseudomonas influenza swab negative initial BCX + SCON, likely contaminant repeated BCX negative. on verapamil for heart rate control DVT and GI prophylaxis continue PT seizure precaution , continue Dilantin strict aspiration precaution, G-tube feeding monitor tolerance case discussed and evaluated by supervising physician Subjective Allergies: Coded Allergies: No Known Allergies (Unverified , 04/11/19) Subjective still with leukocytosis, fever last night, currently afebrile no signs of resp distress on supplemental O2 via NC Objective Last 24 Hour Vital Signs Date Time Temp Pulse Resp B/P (MAP) Pulse Ox O2 Delivery O2 Flow Rate FiO2 04/21/19 08:00 98.1 136 22 109/73 (85) 96 04/21/19 07:37 139 21 96 Nasal Cannula 3.0 32 04/21/19 07:27 96 Nasal Cannula 3.0 32 04/21/19 06:23 146 135/99 04/21/19 04:00 99.0 146 19 135/99 (111) 96 04/21/19 00:00 99.0 128 21 105/75 (85) 97 04/20/19 22:00 144 102/71 04/20/19 21:26 98.2 04/20/19 20:23 Nasal Cannula 4.0 04/20/19 20:00 101.2 144 21 102/71 (81) 100 04/20/19 19:53 136 20 97 Nasal Cannula 3.0 32 04/20/19 19:51 97 Nasal Cannula 3.0 32 04/20/19 16:00 99.2 140 22 148/89 (108) 97 04/20/19 13:43 130 102/69 04/20/19 12:00 99.0 120 18 138/89 (105) 98 04/20/19 09:40 97.7 136 22 120/93 (102) 100 04/20/19 09:00 Nasal Cannula 4.0 Intake and Output 04/20/19 04/21/19 19:00 07:00 Intake Total 1767.5 ml 1720.0 ml Output Total 700 ml 900 ml Balance 1067.5 ml 820.0 ml Free Water 200 ml 200 ml IV Total 847.5 ml 860.0 ml Tube Feeding 720 ml 660 ml Output Urine Total 700 ml 900 ml General Appearance: cachetic, other - bedridden awake, poorly responsive in NAD HEENT: normocephalic, atraumatic, anicteric Respiratory/Chest: other - few scattered rhonchi Cardiovascular: tachycardia Abdomen: soft, non tender, other - G tube Genitourinary: other - Garcia Neurologic/Psychiatric: abnormal gait Musculoskeletal: atrophy - BLE Laboratory Tests 04/21/19 05:55: White Blood Count 15.9H, Red Blood Count 4.46L, Hemoglobin 13.0L, Hematocrit 36.6L, Mean Corpuscular Volume 82, Mean Corpuscular Hemoglobin 29.1, Mean Corpuscular Hemoglobin Concent 35.5, Red Cell Distribution Width 18.1H, Platelet Count 607H, Mean Platelet Volume 7.1, Neutrophils (%) (Auto) 82.3H, Lymphocytes (%) (Auto) 8.0L, Monocytes (%) (Auto) 7.7, Eosinophils (%) (Auto) 0.3, Basophils (%) (Auto) 1.7, Erythrocyte Sedimentation Rate [Pending], Sodium Level 140, Potassium Level 4.4, Chloride Level 103, Carbon Dioxide Level 29, Anion Gap 8, Blood Urea Nitrogen 14, Creatinine 0.7, Estimat Glomerular Filtration Rate > 60, Glucose Level 130H, Calcium Level 9.3, Phosphorus Level 3.0, Magnesium Level 2.0, Total Bilirubin 0.5, Aspartate Amino Transf (AST/SGOT ) 44H, Alanine Aminotransferase (ALT/SGPT) 72, Alkaline Phosphatase 92, C- Reactive Protein, Quantitative 13.9H, Total Protein 8.8H, Albumin 2.4L, Globulin 6.4, Albumin/Globulin Ratio 0.4L Current Medications Medications (Trade) Dose Ordered Sig/Kory Route PRN Reason Start Time Stop Time Status Last Admin Dose Admin Acetaminophen (Tylenol) 650 mg Q6H PRN GT Mild Pain/Temp > 100.5 04/16/19 17:30 05/11/19 17:29 04/20/19 20:56 Albuterol/ Ipratropium (Albuterol/ Ipratropium) 3 ml Q4H PRN HHN Shortness of Breath 04/18/19 22:45 04/23/19 22:44 04/18/19 23:39 Dextrose 1,000 ml @ 75 mls/hr [id number] IV 04/16/19 17:15 05/13/19 11:59 04/21/19 04:33 Dextrose (Dextrose 50%) 25 ml Q30M PRN IV Hypoglycemia 04/16/19 17:30 05/13/19 16:29 Dextrose (Dextrose 50%) 50 ml Q30M PRN IV Hypoglycemia 04/16/19 17:30 05/13/19 16:29 Donepezil HCl (Aricept) 10 mg DAILY GT 04/17/19 09:00 05/12/19 08:59 04/21/19 08:18 Heparin Sodium (Porcine) (Heparin 5000 units/ml) 5,000 units EVERY 12 HOURS SUBQ 04/16/19 21:00 05/12/19 10:59 04/21/19 08:19 Insulin Aspart (NovoLOG) Q6HR SUBQ 04/16/19 18:00 05/13/19 17:59 04/21/19 06:24 Lactobacillus Acidophilus (Culturelle) 1 tab DAILY GT 04/17/19 09:00 05/12/19 08:59 04/21/19 08:18 Lansoprazole (Prevacid) 30 mg DAILY GT 04/17/19 09:00 05/12/19 08:59 04/21/19 08:18 Lorazepam (Ativan 2mg/ml 1ml) 1 mg Q4H PRN IV For Anxiety 04/20/19 10:30 04/27/19 10:29 04/20/19 15:29 Multivitamins (Multivitamins W/ Minerals 15ml Liquid) 15 ml DAILY GT 04/17/19 09:00 05/12/19 08:59 04/21/19 08:18 Ondansetron HCl (Zofran) 4 mg Q6H PRN GT Nausea & Vomiting 04/16/19 17:30 05/12/19 17:29 Phenytoin 300 mg/ Sodium Chloride 55 ml @ 110 mls/hr DAILY IV 04/17/19 09:00 05/17/19 08:59 04/20/19 09:00 Piperacillin Sod/ Tazobactam Sod 3.375 gm/Sodium Chloride 110 ml @ 27.5 mls/hr Q8H IVPB 04/19/19 15:00 04/26/19 14:59 04/21/19 06:25 Primidone (Mysoline) 100 mg QHS GT 04/16/19 21:00 05/12/19 20:59 04/20/19 20:56 Verapamil HCl (Calan) 80 mg EVERY 8 HOURS GT 04/18/19 14:45 05/16/19 14:44 04/21/19 06:23 Lizzette Balderas NP Apr 21, 2019 08:25
[2019-04-21] MEDS: NS IV SCH (08:51)
[2019-04-21] MEDS: PHENYTOIN IV SCH (08:51)
--- NOTE | 2019-04-21 09:52 | NUR ---
RD ASSESSMENT & RECOMMENDATIONS SEE CARE ACTIVITY FOR COMPLETE ASSESSMENT DAILY ESTIMATED NEEDS: Needs based on Severely underweight/ 45kg 35-40 kcals/kg 8967-9200 total kcals 1.5-2.0 g protein/kg 67-90 g total protein 25-35 mL/kg 2586-8278 total fluid mLs NUTRITION DIAGNOSIS: * Increased kcal/prot needs R/T severely underweight status and wt loss as evidenced by pt ~67% IBW, BMI of 15.5, w/ severe generalized wasting, possible significant wt loss of 50lbs/33% in <8 months as per report. 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 ENTERAL NUTRITION RECOMMENDATIONS: Jevity 1.2 @ 60ml/hr x 24 hrs to provide 1440ml, 1728kcal, 80g prot, 1162ml free water * Maintain current TF @goal rate of 60ml/hr x 24 hrs as tolerated * HOB over 30 degrees * Without IVF, water flush of 100ml q 6 hrs ADDITIONAL RECOMMENDATIONS: * Calibrated bedscale wt for accurate CBW -> weekly wt monitoring given h/o wt loss, severely underweight * Monitor lytes daily, replete as needed-> lytes wnl * Monitor BGs, need for carb controlled TF-> good glycemic control * Sacral wound photo-> rec WC eval Add UMER in 4oz H2O BID via GT (f/up w/ WC eval) * On added D5-> BG now elev (128-130) w/ AST trending up, rec to DC D5
--- NOTE | 2019-04-21 11:00 | Progress Note ---
DATE: 04/21/2019 SUBJECTIVE: This is a 43-year-old male patient. This patient continues to have some problems with pneumonia, sepsis, generalized weakness, shortness of breath, altered mental status, decline in cognition below his baseline. That is why, his attending has requested daily psychiatric consultation. MENTAL STATUS EXAMINATION: This is a 43-year-old male. Appearance is disheveled. Attitude, irritable and agitated. Affect, guarded and restricted. Intellect poor. Mood, depressed and anxious. Motor activity, psychomotor agitation. Attention span is poor. Orientation x3. Speech is low volume, slurred. Thought process, disorganized and illogical. Insight and judgment is poor. DIAGNOSIS: Major depressive disorder, mild, recurrent with psychotic features, rule out dementia with psychosis. PLAN: Ativan 1 every 6 hours p.r.n. anxiety and agitation, Aricept 10 mg per G-tube at bedtime. A 20 minutes of reality-based supportive psychotherapy. Chart reviewed. Discussed with staff. Seen and assessed at bedside. Osbaldo Bird M.D. DR: PADMINI JOB#: [id number] CC:
[2019-04-21 12:00] VITALS: BP 109/74
--- NOTE | 2019-04-21 14:06 | General Progress Note ---
Assessment/Plan Problem List: (1) Pneumonia ICD Codes: J18.9 - Pneumonia, unspecified organism SNOMED: 527706154 (2) Sickle cell anemia ICD Codes: D57.1 - Sickle-cell disease without crisis SNOMED: 082934456 (3) Sepsis ICD Codes: A41.9 - Sepsis, unspecified organism SNOMED: 41907791 Status: unchanged Assessment/Plan: pt diet abx psyc neuro eval cbc bmp am Subjective Constitutional: Reports: weakness Allergies: Coded Allergies: No Known Allergies (Unverified , 04/11/19) All Systems: reviewed and negative except above Subjective o2nc sleepy calm Objective Last 24 Hour Vital Signs Date Time Temp Pulse Resp B/P (MAP) Pulse Ox O2 Delivery O2 Flow Rate FiO2 04/21/19 12:00 98.9 131 23 109/74 (86) 97 04/21/19 09:00 Nasal Cannula 4.0 04/21/19 08:00 98.1 136 22 109/73 (85) 96 04/21/19 07:37 139 21 96 Nasal Cannula 3.0 32 04/21/19 07:27 96 Nasal Cannula 3.0 32 04/21/19 06:23 146 135/99 04/21/19 04:00 99.0 146 19 135/99 (111) 96 04/21/19 00:00 99.0 128 21 105/75 (85) 97 04/20/19 22:00 144 102/71 04/20/19 21:26 98.2 04/20/19 20:23 Nasal Cannula 4.0 04/20/19 20:00 101.2 144 21 102/71 (81) 100 04/20/19 19:53 136 20 97 Nasal Cannula 3.0 32 04/20/19 19:51 97 Nasal Cannula 3.0 32 04/20/19 16:00 99.2 140 22 148/89 (108) 97 Intake and Output 04/20/19 04/21/19 19:00 07:00 Intake Total 1767.5 ml 1855.0 ml Output Total 700 ml 900 ml Balance 1067.5 ml 955.0 ml Free Water 200 ml 200 ml IV Total 847.5 ml 935.0 ml Tube Feeding 720 ml 720 ml Output Urine Total 700 ml 900 ml Laboratory Tests 04/21/19 05:55: White Blood Count 15.9H, Red Blood Count 4.46L, Hemoglobin 13.0L, Hematocrit 36.6L, Mean Corpuscular Volume 82, Mean Corpuscular Hemoglobin 29.1, Mean Corpuscular Hemoglobin Concent 35.5, Red Cell Distribution Width 18.1H, Platelet Count 607H, Mean Platelet Volume 7.1, Neutrophils (%) (Auto) 82.3H, Lymphocytes (%) (Auto) 8.0L, Monocytes (%) (Auto) 7.7, Eosinophils (%) (Auto) 0.3, Basophils (%) (Auto) 1.7, Erythrocyte Sedimentation Rate 55H, Sodium Level 140, Potassium Level 4.4, Chloride Level 103, Carbon Dioxide Level 29, Anion Gap 8, Blood Urea Nitrogen 14, Creatinine 0.7, Estimat Glomerular Filtration Rate > 60, Glucose Level 130H, Calcium Level 9.3, Phosphorus Level 3.0, Magnesium Level 2.0, Total Bilirubin 0.5, Aspartate Amino Transf (AST/SGOT) 44H , Alanine Aminotransferase (ALT/SGPT) 72, Alkaline Phosphatase 92, C-Reactive Protein, Quantitative 13.9H, Total Protein 8.8H, Albumin 2.4L, Globulin 6.4, Albumin/Globulin Ratio 0.4L Height (Feet): 5 Height (Inches): 7.00 Weight (Pounds): 126 General Appearance: lethargic EENT: normal ENT inspection Neck: normal alignment Cardiovascular: normal peripheral pulses, normal rate, regular rhythm Respiratory/Chest: chest wall non-tender, lungs clear, normal breath sounds Abdomen: normal bowel sounds, non tender, soft Extremities: normal inspection Edema: no edema noted Arm (L), no edema noted Arm (R), no edema noted Leg (L), no edema noted Leg (R), no edema noted Pedal (L), no edema noted Pedal (R), no edema noted Generalized Neurologic: motor weakness Skin: normal pigmentation, warm/dry Marito Ortega DO Apr 21, 2019 14:06
--- NOTE | 2019-04-21 14:10 | Infectious Diseases Prog Note ---
Assessment/Plan Assessment/Plan Assessment: Sepsis PNA -04/16 CXR: Left greater than right bibasilar opacities may represent atelectasis versus pneumonia. Findings are decreased compared to prior exam. -CXR: Left basilar atelectasis and possible consolidation -sp cx PsA (ramirez S) -influenza sc neg -u/a neg Fever; SP Leukocytosis; decreasing Gram positive bacteremia- contaminant -04/11 Bcx 1/4 CONS; 04/12 Bcx NTD HTN dysphagia s/p GT cerebellar ataxia seizure disorder Alzheimer's dementia SNF resident Plan: - Continue Zosyn #2 given increasing WBCs and O2 requirements -04/19 SP Cefepime #9 for PsA PNA -04/18 SP Azithromycin #7/7 -04/16 SP IV Vancomycin #6 -04/11 SP Ceftriaxone x1 -Monitor CBC/CMP, temperatures -GT care -aspiration precautions -CBC, CMP am -Cdiff if diarrhea Thank you for consulting [facility]. Will continue to follow along with you. Discussed with RN. Subjective Allergies: Coded Allergies: No Known Allergies (Unverified , 04/11/19) Subjective Afebrile WBC stable at 15 Pt now on NC 4L Objective Vital Signs Last 24 Hour Vital Signs Date Time Temp Pulse Resp B/P (MAP) Pulse Ox O2 Delivery O2 Flow Rate FiO2 04/21/19 12:00 98.9 131 23 109/74 (86) 97 04/21/19 09:00 Nasal Cannula 4.0 04/21/19 08:00 98.1 136 22 109/73 (85) 96 04/21/19 07:37 139 21 96 Nasal Cannula 3.0 32 04/21/19 07:27 96 Nasal Cannula 3.0 32 04/21/19 06:23 146 135/99 04/21/19 04:00 99.0 146 19 135/99 (111) 96 04/21/19 00:00 99.0 128 21 105/75 (85) 97 04/20/19 22:00 144 102/71 04/20/19 21:26 98.2 04/20/19 20:23 Nasal Cannula 4.0 04/20/19 20:00 101.2 144 21 102/71 (81) 100 04/20/19 19:53 136 20 97 Nasal Cannula 3.0 32 04/20/19 19:51 97 Nasal Cannula 3.0 32 04/20/19 16:00 99.2 140 22 148/89 (108) 97 Height (Feet): 5 Height (Inches): 7.00 Weight (Pounds): 126 Objective GENERAL: NAD CARDIOVASCULAR: RRR, S1,S2 LUNGS: Coarse B/L ABDOMEN: Bowel sounds distant. Laboratory Tests Test 04/21/19 05:55 White Blood Count 15.9 K/UL (4.8-10.8) H Red Blood Count 4.46 M/UL (4.70-6.10) L Hemoglobin 13.0 G/DL (14.2-18.0) L Hematocrit 36.6 % (42.0-52.0) L Mean Corpuscular Volume 82 FL (80-99) Mean Corpuscular Hemoglobin 29.1 PG (27.0-31.0) Mean Corpuscular Hemoglobin Concent 35.5 G/DL (32.0-36.0) Red Cell Distribution Width 18.1 % (11.6-14.8) H Platelet Count 607 K/UL (150-450) H Mean Platelet Volume 7.1 FL (6.5-10.1) Neutrophils (%) (Auto) 82.3 % (45.0-75.0) H Lymphocytes (%) (Auto) 8.0 % (20.0-45.0) L Monocytes (%) (Auto) 7.7 % (1.0-10.0) Eosinophils (%) (Auto) 0.3 % (0.0-3.0) Basophils (%) (Auto) 1.7 % (0.0-2.0) Erythrocyte Sedimentation Rate 55 MM/HR (0-15) H Sodium Level 140 MMOL/L (136-145) Potassium Level 4.4 MMOL/L (3.5-5.1) Chloride Level 103 MMOL/L (98-107) Carbon Dioxide Level 29 MMOL/L (21-32) Anion Gap 8 mmol/L (5-15) Blood Urea Nitrogen 14 mg/dL (7-18) Creatinine 0.7 MG/DL (0.55-1.30) Estimat Glomerular Filtration Rate > 60 mL/min (>60) Glucose Level 130 MG/DL (74-106) H Calcium Level 9.3 MG/DL (8.5-10.1) Phosphorus Level 3.0 MG/DL (2.5-4.9) Magnesium Level 2.0 MG/DL (1.8-2.4) Total Bilirubin 0.5 MG/DL (0.2-1.0) Aspartate Amino Transf (AST/SGOT) 44 U/L (15-37) H Alanine Aminotransferase (ALT/SGPT) 72 U/L (12-78) Alkaline Phosphatase 92 U/L (46-116) C-Reactive Protein, Quantitative 13.9 mg/dL (0.00-0.90) H Total Protein 8.8 G/DL (6.4-8.2) H Albumin 2.4 G/DL (3.4-5.0) L Globulin 6.4 g/dL Albumin/Globulin Ratio 0.4 (1.0-2.7) L Current Medications Medications (Trade) Dose Ordered Sig/Kory Route PRN Reason Start Time Stop Time Status Last Admin Dose Admin Acetaminophen (Tylenol) 650 mg Q6H PRN GT Mild Pain/Temp > 100.5 04/16/19 17:30 05/11/19 17:29 04/20/19 20:56 Albuterol/ Ipratropium (Albuterol/ Ipratropium) 3 ml Q4H PRN HHN Shortness of Breath 04/18/19 22:45 04/23/19 22:44 04/18/19 23:39 Dextrose 1,000 ml @ 75 mls/hr [id number] IV 04/16/19 17:15 05/13/19 11:59 04/21/19 04:33 Dextrose (Dextrose 50%) 25 ml Q30M PRN IV Hypoglycemia 04/16/19 17:30 05/13/19 16:29 Dextrose (Dextrose 50%) 50 ml Q30M PRN IV Hypoglycemia 04/16/19 17:30 05/13/19 16:29 Donepezil HCl (Aricept) 10 mg DAILY GT 04/17/19 09:00 05/12/19 08:59 04/21/19 08:18 Heparin Sodium (Porcine) (Heparin 5000 units/ml) 5,000 units EVERY 12 HOURS SUBQ 04/16/19 21:00 05/12/19 10:59 04/21/19 08:19 Insulin Aspart (NovoLOG) Q6HR SUBQ 04/16/19 18:00 05/13/19 17:59 04/21/19 12:08 Lactobacillus Acidophilus (Culturelle) 1 tab DAILY GT 04/17/19 09:00 05/12/19 08:59 04/21/19 08:18 Lansoprazole (Prevacid) 30 mg DAILY GT 04/17/19 09:00 05/12/19 08:59 04/21/19 08:18 Lorazepam (Ativan 2mg/ml 1ml) 1 mg Q4H PRN IV For Anxiety 04/20/19 10:30 04/27/19 10:29 04/20/19 15:29 Multivitamins (Multivitamins W/ Minerals 15ml Liquid) 15 ml DAILY GT 04/17/19 09:00 05/12/19 08:59 04/21/19 08:18 Ondansetron HCl (Zofran) 4 mg Q6H PRN GT Nausea & Vomiting 04/16/19 17:30 05/12/19 17:29 Phenytoin 300 mg/ Sodium Chloride 55 ml @ 110 mls/hr DAILY IV 04/17/19 09:00 05/17/19 08:59 04/21/19 08:51 Piperacillin Sod/ Tazobactam Sod 3.375 gm/Sodium Chloride 110 ml @ 27.5 mls/hr Q8H IVPB 04/19/19 15:00 04/26/19 14:59 04/21/19 06:25 Primidone (Mysoline) 100 mg QHS GT 04/16/19 21:00 05/12/19 20:59 04/20/19 20:56 Verapamil HCl (Calan) 80 mg EVERY 8 HOURS GT 04/18/19 14:45 05/16/19 14:44 04/21/19 06:23 Rayshawn Soni MD Apr 21, 2019 14:10
[2019-04-21 16:00] VITALS: BP 149/101
--- NOTE | 2019-04-21 17:40 | NUR ---
[employer] [place] SI: SEPSIS T. 98.1 HR 138 RR 23 B/P 149/101 WBC 15.9 ESR 55 AST 44 IS: ZOSYN IV DILANTIN IV VERAPAMIL MED/SURG STATUS
--- NOTE | 2019-04-21 19:07 | NUR ---
HAND-OFF: Report given to EDUAR Dawson and EDUAR Wilson
--- NOTE | 2019-04-21 19:30 | NUR ---
NURSE NOTES: Received pt. from EDUAR Benavides. Pt. sleeping in bed, head of bed elevated, side rails padded, suction at bedside. Gtube intact and patent, no residuals, running Jevity 1.2 at 60cc/hr, pt. tolerating feeding. Garcia patent and draining yellow urine. IV left forearm intact and patent, running D5 water at 75cc/hr. NC 4L, o2 at 97%. . Sacral stage II dry and intact, dressing changed 04/21. Bed is locked and low, side rails are up x2 and padded, alarm on, call light in reach, will continue to monitor.
[2019-04-21 20:00] VITALS: BP 102/66
[2019-04-21] MEDS: Acetaminophen 650mg/20.3ml GT PRN (20:29)
--- NOTE | 2019-04-21 23:00 | NUR ---
NURSE NOTES: Fever noted at 102.4, PRN tylenol given. Temperature down to 98.4 upon reassessment.
[2019-04-22] VITALS (8 sets, daily range): BP systolic 77–159; BP diastolic 47–99
[2019-04-22] MEDS: Acetaminophen 650mg/20.3ml GT PRN ×3 (03:10→15:45)
--- NOTE | 2019-04-22 03:58 | NUR ---
NURSE NOTES: Fever at 101.8, PRN tylenol given. Reassessed temperature at 101.7. Will continue to monitor.
--- NOTE | 2019-04-22 04:11 | NUR ---
NURSE NOTES: Notified Dr. Soni regarding two episodes of fever. Pt. at 100F at this point. Awaiting orders and will continue to monitor pt.
--- NOTE | 2019-04-22 04:30 | NUR ---
NURSE NOTES: Pt. temperature is 100.6. Cooling methods implemented. Pt. Received orders by Dr. Soni. Will D/C Zosyn and start pt on Meropenem 1gm and Vancomycin per pharmacy to dose. RT at bedside collecting sputum culture. Will continue to monitor.
[2019-04-22] MEDS: Vancomycin 1gm in D5W 275ml IVPB SCH ×2 (05:03→17:35)
[2019-04-22] MEDS: Verapamil 80mg tab GT SCH ×3 (06:33→22:00)
[2019-04-22] MEDS: NovoLOG Insulin Flexpen SUBQ SCH ×4 (06:33→23:52)
[2019-04-22] MEDS: Meropenem 1 GM in NS 55 ML IVPB SCH ×3 (06:34→22:45)
--- NOTE | 2019-04-22 07:40 | NUR ---
HAND-OFF: Report given to EDUAR Jain.
--- NOTE | 2019-04-22 07:51 | NUR ---
NURSE NOTES: Patient awake, non-verbal; on Nasal Cannula 4 Liter, no sing of distress and shortness of breath; IV Left For-Arm 22G D5W running 75cc; Jevity 1.2 on hold, patient had residual >100 by PM nurse; side rails padded for seizure percussion, side rails up x2, breaks engaged, bed at lowest position; Garcia in place, drains well; will given suction as needed; will keep monitoring patient's blood sugar, hear rate, and temperature;
[2019-04-22 08:15] LABS: ANION GAP 9 mmol/L (5-15); BASOPHILS % (AUTO) 1.5 % (0.0-2.0); BLOOD UREA NITROGEN 16 mg/dL (7-18); CALCIUM 8.7 MG/DL (8.5-10.1); CARBON DIOXIDE 29 MMOL/L (21-32); CHLORIDE 101 MMOL/L (98-107); CREATININE 0.7 MG/DL (0.55-1.30); EOSINOPHILS % (AUTO) 0.1 % (0.0-3.0); HEMATOCRIT 29.6 % (42.0-52.0); HEMOGLOBIN 10.7 G/DL (14.2-18.0); LYMPHOCYTES % (AUTO) 11.3 % (20.0-45.0); MEAN CORPUSCULAR VOLUME 82 FL (80-99); MONOCYTES % (AUTO) 6.1 % (1.0-10.0); NEUTROPHILS % (AUTO) 80.9 % (45.0-75.0); PLATELET COUNT 515 K/UL (150-450); POTASSIUM 3.2 MMOL/L (3.5-5.1); RED BLOOD COUNT 3.59 M/UL (4.70-6.10); RED CELL DISTRIBUTION WIDTH 18.1 % (11.6-14.8); SODIUM 139 MMOL/L (136-145); WHITE BLOOD COUNT 16.3 K/UL (4.8-10.8)
--- NOTE | 2019-04-22 08:26 | General Progress Note ---
Assessment/Plan Problem List: (1) Pneumonia ICD Codes: J18.9 - Pneumonia, unspecified organism SNOMED: 806709675 (2) Sickle cell anemia ICD Codes: D57.1 - Sickle-cell disease without crisis SNOMED: 686009460 (3) Sepsis ICD Codes: A41.9 - Sepsis, unspecified organism SNOMED: 43343954 Status: unchanged Assessment/Plan: pt diet abx psyc neuro eval cbc bmp am Subjective Constitutional: Reports: weakness Allergies: Coded Allergies: No Known Allergies (Unverified , 04/11/19) All Systems: reviewed and negative except above Subjective o2nc sleepy calm Objective Last 24 Hour Vital Signs Date Time Temp Pulse Resp B/P (MAP) Pulse Ox O2 Delivery O2 Flow Rate FiO2 04/22/19 08:00 102.8 137 20 105/65 (78) 95 04/22/19 06:33 129 125/77 04/22/19 04:00 100.0 111 25 99/66 (77) 99 04/22/19 03:40 101.8 04/22/19 00:00 98.4 115 25 92/63 (73) 98 04/21/19 22:00 104 97/63 04/21/19 21:00 Nasal Cannula 4.0 04/21/19 20:00 100.4 129 26 102/66 (78) 99 04/21/19 19:53 126 21 98 Nasal Cannula 3.0 32 04/21/19 19:53 98 Nasal Cannula 3.0 32 04/21/19 16:00 98.1 138 23 149/101 (117) 95 04/21/19 14:00 142 115/70 04/21/19 12:00 98.9 131 23 109/74 (86) 97 04/21/19 09:00 Nasal Cannula 4.0 Intake and Output 04/21/19 04/22/19 19:00 07:00 Intake Total 1987.5 ml 2289.916 ml Output Total 600 ml Balance 1987.5 ml 1689.916 ml Free Water 250 ml 280 ml IV Total 1017.5 ml 1349.916 ml Tube Feeding 720 ml 660 ml Output Urine Total 600 ml Laboratory Tests 04/22/19 05:50: White Blood Count 16.3H, Red Blood Count 3.59L, Hemoglobin 10.7L, Hematocrit 29.6L, Mean Corpuscular Volume 82, Mean Corpuscular Hemoglobin 29.7, Mean Corpuscular Hemoglobin Concent 36.1H, Red Cell Distribution Width 18.1H, Platelet Count 515H, Mean Platelet Volume 6.9, Neutrophils (%) (Auto) 80.9H, Lymphocytes (%) (Auto) 11.3L, Monocytes (%) (Auto) 6.1, Eosinophils (%) (Auto) 0.1, Basophils (%) (Auto) 1.5, Sodium Level [Pending], Potassium Level [Pending] , Chloride Level [Pending], Carbon Dioxide Level [Pending], Blood Urea Nitrogen [Pending], Creatinine [Pending], Estimat Glomerular Filtration Rate [Pending], Glucose Level [Pending], Calcium Level [Pending] Height (Feet): 5 Height (Inches): 7.00 Weight (Pounds): 126 General Appearance: lethargic EENT: normal ENT inspection Neck: normal alignment Cardiovascular: normal peripheral pulses, normal rate, regular rhythm Respiratory/Chest: chest wall non-tender, lungs clear, normal breath sounds Abdomen: normal bowel sounds, non tender, soft Extremities: normal inspection Edema: no edema noted Arm (L), no edema noted Arm (R), no edema noted Leg (L), no edema noted Leg (R), no edema noted Pedal (L), no edema noted Pedal (R), no edema noted Generalized Neurologic: motor weakness Skin: normal pigmentation, warm/dry Marito Ortega DO Apr 22, 2019 08:26
[2019-04-22] MEDS: Multivitamins W/Minerals 15 ML UDC GT SCH (09:13)
[2019-04-22] MEDS: Donepezil 10mg tab GT SCH (09:13)
[2019-04-22] MEDS: Lactobacillus-GG tablet GT SCH (09:13)
[2019-04-22] MEDS: Heparin 5000 units/ml inj SUBQ SCH ×2 (09:15→22:43)
[2019-04-22] MEDS: PHENYTOIN IV SCH (09:17)
[2019-04-22] MEDS: NS IV SCH (09:17)
--- NOTE | 2019-04-22 12:01 | Pulmonology Progress Note ---
Assessment/Plan Assessment/Plan ASSESSMENT Sepsis Pneumonia Cavitary lung disease Seizure disorder Dysphagia ,feeding by G-tube Chronic tachycardia Cerebellar ataxia Alzheimer dementia PLAN of CARE MS floor IVF O2 HHN prn fup with CXR abx as per ID recs SCX+ Pseudomonas influenza swab negative initial BCX + SCON, likely contaminant repeated BCX negative. repeat BCX given worsening leuk and fevers on verapamil for heart rate control DVT and GI prophylaxis continue PT seizure precaution , continue Dilantin replace K, check K and Mg in am strict aspiration precaution, G-tube feeding monitor tolerance case discussed and evaluated by supervising physician Subjective Allergies: Coded Allergies: No Known Allergies (Unverified , 04/11/19) Subjective still with leukocytosis, fever this am currently afebrile no signs of resp distress on supplemental O2 via NC K-3.2 Objective Last 24 Hour Vital Signs Date Time Temp Pulse Resp B/P (MAP) Pulse Ox O2 Delivery O2 Flow Rate FiO2 04/22/19 10:30 99.9 103 20 77/47 (57) 98 04/22/19 09:45 99.9 04/22/19 09:00 Nasal Cannula 4.0 04/22/19 08:00 98 Nasal Cannula 3.0 32 04/22/19 08:00 135 21 95 Nasal Cannula 3.0 32 04/22/19 08:00 102.8 137 20 105/65 (78) 95 04/22/19 06:33 129 125/77 04/22/19 04:00 100.0 111 25 99/66 (77) 99 04/22/19 00:00 98.4 115 25 92/63 (73) 98 04/21/19 22:00 104 97/63 04/21/19 21:00 Nasal Cannula 4.0 04/21/19 20:00 100.4 129 26 102/66 (78) 99 04/21/19 19:53 126 21 98 Nasal Cannula 3.0 32 04/21/19 19:53 98 Nasal Cannula 3.0 32 04/21/19 16:00 98.1 138 23 149/101 (117) 95 04/21/19 14:00 142 115/70 04/21/19 12:00 98.9 131 23 109/74 (86) 97 Intake and Output 04/21/19 04/22/19 19:00 07:00 Intake Total 1987.5 ml 2289.916 ml Output Total 600 ml Balance 1987.5 ml 1689.916 ml Free Water 250 ml 280 ml IV Total 1017.5 ml 1349.916 ml Tube Feeding 720 ml 660 ml Output Urine Total 600 ml Objective General Appearance: cachetic, bedridden awake, poorly responsive , in NAD HEENT: normocephalic, atraumatic, anicteric Respiratory/Chest: few scattered rhonchi Cardiovascular: tachycardia Abdomen: soft, non tender, G tube Genitourinary: Garcia Neurologic/Psychiatric: abnormal gait Musculoskeletal: atrophy - BLE Laboratory Tests 04/22/19 05:50: White Blood Count 16.3H, Red Blood Count 3.59L, Hemoglobin 10.7L, Hematocrit 29.6L, Mean Corpuscular Volume 82, Mean Corpuscular Hemoglobin 29.7, Mean Corpuscular Hemoglobin Concent 36.1H, Red Cell Distribution Width 18.1H, Platelet Count 515H, Mean Platelet Volume 6.9, Neutrophils (%) (Auto) 80.9H, Lymphocytes (%) (Auto) 11.3L, Monocytes (%) (Auto) 6.1, Eosinophils (%) (Auto) 0.1, Basophils (%) (Auto) 1.5, Sodium Level 139, Potassium Level 3.2L, Chloride Level 101, Carbon Dioxide Level 29, Anion Gap 9, Blood Urea Nitrogen 16, Creatinine 0.7, Estimat Glomerular Filtration Rate > 60, Glucose Level 169H, Calcium Level 8.7 Current Medications Medications (Trade) Dose Ordered Sig/Kory Route PRN Reason Start Time Stop Time Status Last Admin Dose Admin Acetaminophen (Tylenol) 650 mg Q6H PRN GT Mild Pain/Temp > 100.5 04/16/19 17:30 05/11/19 17:29 04/22/19 09:15 Albuterol/ Ipratropium (Albuterol/ Ipratropium) 3 ml Q4H PRN HHN Shortness of Breath 04/18/19 22:45 04/23/19 22:44 04/18/19 23:39 Dextrose 1,000 ml @ 75 mls/hr [id number] IV 04/16/19 17:15 05/13/19 11:59 04/22/19 06:37 Dextrose (Dextrose 50%) 25 ml Q30M PRN IV Hypoglycemia 04/16/19 17:30 05/13/19 16:29 Dextrose (Dextrose 50%) 50 ml Q30M PRN IV Hypoglycemia 04/16/19 17:30 05/13/19 16:29 Donepezil HCl (Aricept) 10 mg DAILY GT 04/17/19 09:00 05/12/19 08:59 04/22/19 09:13 Heparin Sodium (Porcine) (Heparin 5000 units/ml) 5,000 units EVERY 12 HOURS SUBQ 04/16/19 21:00 05/12/19 10:59 04/22/19 09:15 Insulin Aspart (NovoLOG) Q6HR SUBQ 04/16/19 18:00 05/13/19 17:59 04/22/19 06:33 Lactobacillus Acidophilus (Culturelle) 1 tab DAILY GT 04/17/19 09:00 05/12/19 08:59 04/22/19 09:13 Lansoprazole (Prevacid) 30 mg DAILY GT 04/17/19 09:00 05/12/19 08:59 04/22/19 09:13 Lorazepam (Ativan 2mg/ml 1ml) 1 mg Q4H PRN IV For Anxiety 04/20/19 10:30 04/27/19 10:29 04/20/19 15:29 Meropenem 1 gm/ Sodium Chloride 55 ml @ 110 mls/hr Q8HR IVPB 04/22/19 06:00 04/27/19 05:59 04/22/19 06:34 Multivitamins (Multivitamins W/ Minerals 15ml Liquid) 15 ml DAILY GT 04/17/19 09:00 05/12/19 08:59 04/22/19 09:13 Ondansetron HCl (Zofran) 4 mg Q6H PRN GT Nausea & Vomiting 04/16/19 17:30 05/12/19 17:29 Phenytoin 300 mg/ Sodium Chloride 55 ml @ 110 mls/hr DAILY IV 04/17/19 09:00 05/17/19 08:59 04/22/19 09:17 Primidone (Mysoline) 100 mg QHS GT 04/16/19 21:00 05/12/19 20:59 04/21/19 20:29 Vancomycin HCl (Vanco rx to dose) 1 ea DAILY PRN MISC Per rx protocol 04/22/19 04:30 05/22/19 04:29 Vancomycin HCl 1 gm/Dextrose 275 ml @ 183.708 mls/hr Q12H IVPB 04/22/19 05:00 04/27/19 04:59 04/22/19 05:03 Verapamil HCl (Calan) 80 mg EVERY 8 HOURS GT 04/18/19 14:45 05/16/19 14:44 04/22/19 06:33 Lizzette Balderas NP Apr 22, 2019 12:01
--- NOTE | 2019-04-22 15:20 | NUR ---
NURSE NOTES: Patient's BP 98/74 P 99; I communicated [place] ATTENDANT Lizzette regarding the matter and received an order to give Bolus 500cc NS; order carried out as order given; will keep monitoring.
--- NOTE | 2019-04-22 16:00 | NUR ---
NURSE NOTES: Wound care provided, picture uploaded, patient tolerated well.
--- NOTE | 2019-04-22 19:15 | NUR ---
NURSE NOTES: RECEIVED PATIENT FROM EDUAR MORALES. PT IS AWAKE, AAOX1, EYES OPEN SPONTANEOUSLY, AROUSABLE TO VOICE, RESPONDED TO VERBAL COMMANDS. PT IS ON NC O2 4L, SAT 98%. TACHYCARDIA 128, MD AWARE. SUCTION AT BEDSIDE. G-TUBE IS INTACT AND PATENT, NO RESIDUALS NOTED, RUNNING JEVITY 1.2 AT 60ML/HR, PATIENT IS TOLERATING FEEDING WELL. IV ON LEFT FA IS INTACT AND PATENT. SACRAL WOUND DRESSING IS INTACT AND DRY. BED IS LOCKED AND LOW, SIDE RAILS UP X2, PADDED FOR SEIZURE PRECAUTION, BED ALARMS ACTIVE, AND CALL LIGHT IS WITHIN REACH. WILL CONTINUE TO MONITOR.
--- NOTE | 2019-04-22 19:34 | NUR ---
HAND-OFF: Report given to EDUAR Membreno.
--- NOTE | 2019-04-22 23:45 | Progress Note ---
DATE: 04/22/2019 SUBJECTIVE: This is a 43-year-old patient with sepsis . He still has some altered mental status, confusion, and his cognition has declined below his baseline. That is why, his attending has requested daily psychiatric consultation at this time and so he does require inpatient treatment at this time. He has a sort of psychosis. MENTAL STATUS EXAMINATION: This is a 43-year-old male patient. His appearance is disheveled. Attitude, irritable and agitated. Affect, guarded and restricted. Intellect poor. Mood, depressed and anxious. Motor activity, psychomotor agitation. Attention span is poor. Orientation x2. Speech is low volume, slurred. Thought process, disorganized and illogical. Insight and judgment is poor. DIAGNOSIS: . PLAN: Continue treatment with psychotropic medications to stabilize his mood and provide him with 20 minutes of behavioral management. Chart reviewed. Discussed with staff. Seen and assessed at bedside. Osbaldo Bird M.D. : PADMINI JOB#: [id number] CC:
[2019-04-23] VITALS: BP 103/61
[2019-04-23 04:00] VITALS: BP 111/75
[2019-04-23] MEDS: Vancomycin 1gm in D5W 275ml IVPB SCH (05:06)
[2019-04-23] MEDS: Verapamil 80mg tab GT SCH ×3 (05:24→21:54)
[2019-04-23] MEDS: Acetaminophen 650mg/20.3ml GT PRN (05:25)
[2019-04-23] MEDS: Meropenem 1 GM in NS 55 ML IVPB SCH ×3 (05:26→21:54)
[2019-04-23] MEDS: NovoLOG Insulin Flexpen SUBQ SCH ×3 (05:37→18:00)
[2019-04-23 07:41] LABS: BASOPHILS % (AUTO) 0.6 % (0.0-2.0); EOSINOPHILS % (AUTO) 1.5 % (0.0-3.0); HEMATOCRIT 30.6 % (42.0-52.0); HEMOGLOBIN 10.7 G/DL (14.2-18.0); LYMPHOCYTES % (AUTO) 8.8 % (20.0-45.0); MEAN CORPUSCULAR VOLUME 82 FL (80-99); MONOCYTES % (AUTO) 6.1 % (1.0-10.0); PLATELET COUNT 463 K/UL (150-450); RED BLOOD COUNT 3.72 M/UL (4.70-6.10); RED CELL DISTRIBUTION WIDTH 18.1 % (11.6-14.8); WHITE BLOOD COUNT 15.5 K/UL (4.8-10.8)
[2019-04-23 07:44] LABS: ANION GAP 6 mmol/L (5-15); BLOOD UREA NITROGEN 14 mg/dL (7-18); CALCIUM 8.4 MG/DL (8.5-10.1); CARBON DIOXIDE 27 MMOL/L (21-32); CHLORIDE 103 MMOL/L (98-107); CREATININE 0.8 MG/DL (0.55-1.30); POTASSIUM 3.7 MMOL/L (3.5-5.1); SODIUM 136 MMOL/L (136-145)
--- NOTE | 2019-04-23 07:55 | NUR ---
NURSE NOTES: Received report from Eunice, RN. Patient nonverbal with grunts and spontaneous eye movement. On nasal cannula 4L/min with humidifier. Patient coughing up secretions, was suctioned. Continuous pulse ox on patient, O2 sats WNL. IV intact, patent, and infusing IV fluids. Gtube intact, patent, and infusing feeding. Garcia catheter intact, patent, and draining urine. Bed in lowest position with HOB high contreras. Will continue with plan of care.
--- NOTE | 2019-04-23 07:56 | NUR ---
HAND-OFF: Report given to EDUAR Sebastian.
[2019-04-23 08:00] VITALS: BP 109/77
--- NOTE | 2019-04-23 09:01 | Diagnostic Imaging Report ---
EXAM: XR Chest, 1 View CLINICAL HISTORY: Shortness of breath TECHNIQUE: Frontal view of the chest. COMPARISON: Chest x-rays dated 04/16/19 FINDINGS: Lungs: Mildly increased interstitial markings. Sub-segmental atelectasis versus infiltrates in bilateral lung bases. Oblique linear marking across the right midlung region likely represents a skinfold. Pleural space: Unremarkable. The costophrenic angles are sharp. No visible pneumothorax. Heart: Unremarkable. No cardiomegaly. Mediastinum: Unremarkable. Bones/joints: Unremarkable. IMPRESSION: 1. Mildly increased interstitial markings. This is nonspecific but may suggest mild pulmonary vascular congestion or a mild interstitial pneumonitis. 2. Sub-segmental atelectasis versus infiltrates in bilateral lung bases.
--- NOTE | 2019-04-23 09:45 | Infectious Diseases Prog Note ---
Assessment/Plan Assessment/Plan Assessment: Sepsis PNA -04/16 CXR: Left greater than right bibasilar opacities may represent atelectasis versus pneumonia. Findings are decreased compared to prior exam. -CXR: Left basilar atelectasis and possible consolidation -sp cx PsA (ramirez S) -influenza sc neg -u/a neg Fever; SP Leukocytosis; decreasing Gram positive bacteremia- contaminant -04/11 Bcx 1/4 CONS; 04/12 Bcx NTD HTN dysphagia s/p GT cerebellar ataxia seizure disorder Alzheimer's dementia SNF resident Plan: Continue Meropenem #2 and Vancomycin #2 - f/u Sputum Cx - 04/22/19 SP Zosyn #3 -04/19 SP Cefepime #9 for PsA PNA -04/18 SP Azithromycin #7/7 -04/16 SP IV Vancomycin #6 -04/11 SP Ceftriaxone x1 -Monitor CBC/CMP, temperatures -GT care -aspiration precautions -CBC, CMP am -Cdiff if diarrhea Thank you for consulting [facility]. Will continue to follow along with you. Discussed with RN. Subjective Allergies: Coded Allergies: No Known Allergies (Unverified , 04/11/19) Subjective Afebrile so far today WBC stable at 15 Pt on NC 4L Objective Vital Signs Last 24 Hour Vital Signs Date Time Temp Pulse Resp B/P (MAP) Pulse Ox O2 Delivery O2 Flow Rate FiO2 04/23/19 05:55 100.0 04/23/19 05:24 109 113/80 04/23/19 04:00 97.9 118 25 111/75 (87) 99 04/23/19 00:00 98.8 100 25 103/61 (75) 97 04/22/19 22:00 109 110/64 04/22/19 21:00 Nasal Cannula 4.0 04/22/19 20:21 94 Nasal Cannula 3.0 32 04/22/19 20:20 137 20 94 Nasal Cannula 3.0 32 04/22/19 20:00 97.5 50 28 159/99 (119) 96 04/22/19 17:48 97.5 95 18 106/66 (79) 99 04/22/19 16:00 101.1 79 18 102/72 (82) 100 04/22/19 14:00 99 98/47 04/22/19 12:00 98.7 99 19 98/47 (64) 98 04/22/19 10:30 99.9 103 20 77/47 (57) 98 Height (Feet): 5 Height (Inches): 7.00 Weight (Pounds): 126 Objective GENERAL: NAD, On 4L NC CARDIOVASCULAR: RRR, S1,S2 LUNGS: Coarse B/L ABDOMEN: Bowel sounds distant. Microbiology Date/Time Source Procedure Growth Status 04/22/19 04:30 Sputum Induced Gram Stain - Final Resulted 04/22/19 04:30 Sputum Induced Sputum Culture Pending Resulted Laboratory Tests Test 04/23/19 06:00 White Blood Count 15.5 K/UL (4.8-10.8) H Red Blood Count 3.72 M/UL (4.70-6.10) L Hemoglobin 10.7 G/DL (14.2-18.0) L Hematocrit 30.6 % (42.0-52.0) L Mean Corpuscular Volume 82 FL (80-99) Mean Corpuscular Hemoglobin 28.6 PG (27.0-31.0) Mean Corpuscular Hemoglobin Concent 34.8 G/DL (32.0-36.0) Red Cell Distribution Width 18.1 % (11.6-14.8) H Platelet Count 463 K/UL (150-450) H Mean Platelet Volume 7.0 FL (6.5-10.1) Neutrophils (%) (Auto) 83.0 % (45.0-75.0) H Lymphocytes (%) (Auto) 8.8 % (20.0-45.0) L Monocytes (%) (Auto) 6.1 % (1.0-10.0) Eosinophils (%) (Auto) 1.5 % (0.0-3.0) Basophils (%) (Auto) 0.6 % (0.0-2.0) Sodium Level 136 MMOL/L (136-145) Potassium Level 3.7 MMOL/L (3.5-5.1) Chloride Level 103 MMOL/L (98-107) Carbon Dioxide Level 27 MMOL/L (21-32) Anion Gap 6 mmol/L (5-15) Blood Urea Nitrogen 14 mg/dL (7-18) Creatinine 0.8 MG/DL (0.55-1.30) Estimat Glomerular Filtration Rate > 60 mL/min (>60) Glucose Level 199 MG/DL (74-106) H Calcium Level 8.4 MG/DL (8.5-10.1) L Magnesium Level 2.1 MG/DL (1.8-2.4) Current Medications Medications (Trade) Dose Ordered Sig/Kory Route PRN Reason Start Time Stop Time Status Last Admin Dose Admin Acetaminophen (Tylenol) 650 mg Q6H PRN GT Mild Pain/Temp > 100.5 04/16/19 17:30 05/11/19 17:29 04/23/19 05:25 Albuterol/ Ipratropium (Albuterol/ Ipratropium) 3 ml Q4H PRN HHN Shortness of Breath 04/18/19 22:45 04/23/19 22:44 04/18/19 23:39 Dextrose 1,000 ml @ 75 mls/hr [id number] IV 04/16/19 17:15 05/13/19 11:59 04/22/19 20:53 Dextrose (Dextrose 50%) 25 ml Q30M PRN IV Hypoglycemia 04/16/19 17:30 05/13/19 16:29 Dextrose (Dextrose 50%) 50 ml Q30M PRN IV Hypoglycemia 04/16/19 17:30 05/13/19 16:29 Donepezil HCl (Aricept) 10 mg DAILY GT 04/17/19 09:00 05/12/19 08:59 04/22/19 09:13 Heparin Sodium (Porcine) (Heparin 5000 units/ml) 5,000 units EVERY 12 HOURS SUBQ 04/16/19 21:00 05/12/19 10:59 04/22/19 22:43 Insulin Aspart (NovoLOG) Q6HR SUBQ 04/16/19 18:00 05/13/19 17:59 04/23/19 05:37 Lactobacillus Acidophilus (Culturelle) 1 tab DAILY GT 04/17/19 09:00 05/12/19 08:59 04/22/19 09:13 Lansoprazole (Prevacid) 30 mg DAILY GT 04/17/19 09:00 05/12/19 08:59 04/22/19 09:13 Lorazepam (Ativan 2mg/ml 1ml) 1 mg Q4H PRN IV For Anxiety 04/20/19 10:30 04/27/19 10:29 04/20/19 15:29 Meropenem 1 gm/ Sodium Chloride 55 ml @ 110 mls/hr Q8HR IVPB 04/22/19 06:00 04/27/19 05:59 04/23/19 05:26 Multivitamins (Multivitamins W/ Minerals 15ml Liquid) 15 ml DAILY GT 04/17/19 09:00 05/12/19 08:59 04/22/19 09:13 Ondansetron HCl (Zofran) 4 mg Q6H PRN GT Nausea & Vomiting 04/16/19 17:30 05/12/19 17:29 Phenytoin 300 mg/ Sodium Chloride 55 ml @ 110 mls/hr DAILY IV 04/17/19 09:00 05/17/19 08:59 04/22/19 09:17 Primidone (Mysoline) 100 mg QHS GT 04/16/19 21:00 05/12/19 20:59 04/22/19 22:45 Vancomycin HCl (Vanco rx to dose) 1 ea DAILY PRN MISC Per rx protocol 04/22/19 04:30 05/22/19 04:29 Vancomycin HCl 1 gm/Dextrose 275 ml @ 183.708 mls/hr Q12H IVPB 04/22/19 05:00 04/27/19 04:59 04/23/19 05:06 Verapamil HCl (Calan) 80 mg EVERY 8 HOURS GT 04/18/19 14:45 05/16/19 14:44 04/22/19 06:33 Rayshawn Soni MD Apr 23, 2019 09:44
[2019-04-23] MEDS: Donepezil 10mg tab GT SCH (09:48)
[2019-04-23] MEDS: Lactobacillus-GG tablet GT SCH (09:48)
[2019-04-23] MEDS: Multivitamins W/Minerals 15 ML UDC GT SCH (09:48)
[2019-04-23] MEDS: Heparin 5000 units/ml inj SUBQ SCH ×2 (09:49→21:52)
[2019-04-23] MEDS: NS IV SCH (09:50)
[2019-04-23] MEDS: PHENYTOIN IV SCH (09:50)
--- NOTE | 2019-04-23 10:37 | General Progress Note ---
Assessment/Plan Problem List: (1) Pneumonia ICD Codes: J18.9 - Pneumonia, unspecified organism SNOMED: 810815420 (2) Sickle cell anemia ICD Codes: D57.1 - Sickle-cell disease without crisis SNOMED: 056726533 (3) Sepsis ICD Codes: A41.9 - Sepsis, unspecified organism SNOMED: 34854834 Status: unchanged Assessment/Plan: pt diet abx psyc neuro eval cbc bmp am Subjective Constitutional: Reports: weakness Allergies: Coded Allergies: No Known Allergies (Unverified , 04/11/19) All Systems: reviewed and negative except above Subjective o2nc sleepy calm Objective Last 24 Hour Vital Signs Date Time Temp Pulse Resp B/P (MAP) Pulse Ox O2 Delivery O2 Flow Rate FiO2 04/23/19 05:55 100.0 04/23/19 05:24 109 113/80 04/23/19 04:00 97.9 118 25 111/75 (87) 99 04/23/19 00:00 98.8 100 25 103/61 (75) 97 04/22/19 22:00 109 110/64 04/22/19 21:00 Nasal Cannula 4.0 04/22/19 20:21 94 Nasal Cannula 3.0 32 04/22/19 20:20 137 20 94 Nasal Cannula 3.0 32 04/22/19 20:00 97.5 50 28 159/99 (119) 96 04/22/19 17:48 97.5 95 18 106/66 (79) 99 04/22/19 16:00 101.1 79 18 102/72 (82) 100 04/22/19 14:00 99 98/47 04/22/19 12:00 98.7 99 19 98/47 (64) 98 Intake and Output 04/22/19 04/23/19 18:59 06:59 Intake Total 1853.708 ml 815 ml Output Total 1250 ml Balance 1853.708 ml -435 ml Intake Oral 0 ml Free Water 120 ml 60 ml IV Total 1193.708 ml 635 ml Tube Feeding 540 ml 120 ml Output Urine Total 1250 ml # Voids 2 # Bowel Movements 1 Laboratory Tests 04/23/19 06:00: White Blood Count 15.5H, Red Blood Count 3.72L, Hemoglobin 10.7L, Hematocrit 30.6L, Mean Corpuscular Volume 82, Mean Corpuscular Hemoglobin 28.6, Mean Corpuscular Hemoglobin Concent 34.8, Red Cell Distribution Width 18.1H, Platelet Count 463H, Mean Platelet Volume 7.0, Neutrophils (%) (Auto) 83.0H, Lymphocytes (%) (Auto) 8.8L, Monocytes (%) (Auto) 6.1, Eosinophils (%) (Auto) 1.5, Basophils (%) (Auto) 0.6, Sodium Level 136, Potassium Level 3.7, Chloride Level 103, Carbon Dioxide Level 27, Anion Gap 6, Blood Urea Nitrogen 14, Creatinine 0.8, Estimat Glomerular Filtration Rate > 60, Glucose Level 199H, Calcium Level 8.4L, Magnesium Level 2.1 Height (Feet): 5 Height (Inches): 7.00 Weight (Pounds): 126 General Appearance: lethargic EENT: normal ENT inspection Neck: normal alignment Cardiovascular: normal peripheral pulses, normal rate, regular rhythm Respiratory/Chest: chest wall non-tender, lungs clear, normal breath sounds Abdomen: normal bowel sounds, non tender, soft Extremities: normal inspection Edema: no edema noted Arm (L), no edema noted Arm (R), no edema noted Leg (L), no edema noted Leg (R), no edema noted Pedal (L), no edema noted Pedal (R), no edema noted Generalized Neurologic: motor weakness Skin: normal pigmentation, warm/dry Marito Ortega DO Apr 23, 2019 10:37
[2019-04-23 12:00] VITALS: BP 111/78
--- NOTE | 2019-04-23 13:24 | Pulmonology Progress Note ---
Assessment/Plan Assessment/Plan ASSESSMENT Sepsis Pneumonia Cavitary lung disease Seizure disorder Dysphagia ,feeding by G-tube Chronic tachycardia Cerebellar ataxia Alzheimer dementia PLAN of CARE MS floor IVF O2 HHN prn CXR noted abx as per ID recs SCX+ Pseudomonas, repeat sputum CX pending influenza swab negative initial BCX + SCON, likely contaminant repeated BCX negative. repeat BCX given worsening leuk and fevers on verapamil for heart rate control DVT and GI prophylaxis continue PT seizure precaution , continue Dilantin K stable after replacement, Mg stable strict aspiration precaution, G-tube feeding monitor tolerance case discussed and evaluated by supervising physician Subjective Allergies: Coded Allergies: No Known Allergies (Unverified , 04/11/19) Subjective still with leukocytosis, trending down fever early this am , currently afebrile no signs of resp distress on supplemental O2 via NC episode of hypotension yesterday, BP improved with fluid bolus Objective Last 24 Hour Vital Signs Date Time Temp Pulse Resp B/P (MAP) Pulse Ox O2 Delivery O2 Flow Rate FiO2 04/23/19 12:00 99.3 104 19 111/78 (89) 98 04/23/19 09:00 Nasal Cannula 4.0 04/23/19 08:00 99.5 107 17 109/77 (88) 99 04/23/19 05:55 100.0 04/23/19 05:24 109 113/80 04/23/19 04:00 97.9 118 25 111/75 (87) 99 04/23/19 00:00 98.8 100 25 103/61 (75) 97 04/22/19 22:00 109 110/64 04/22/19 21:00 Nasal Cannula 4.0 04/22/19 20:21 94 Nasal Cannula 3.0 32 04/22/19 20:20 137 20 94 Nasal Cannula 3.0 32 04/22/19 20:00 97.5 50 28 159/99 (119) 96 04/22/19 17:48 97.5 95 18 106/66 (79) 99 04/22/19 16:00 101.1 79 18 102/72 (82) 100 04/22/19 14:00 99 98/47 Intake and Output 04/22/19 04/23/19 18:59 06:59 Intake Total 1853.708 ml 815 ml Output Total 1250 ml Balance 1853.708 ml -435 ml Intake Oral 0 ml Free Water 120 ml 60 ml IV Total 1193.708 ml 635 ml Tube Feeding 540 ml 120 ml Output Urine Total 1250 ml # Voids 2 # Bowel Movements 1 Objective General Appearance: cachetic, bedridden awake, poorly responsive , in NAD HEENT: normocephalic, atraumatic, anicteric Respiratory/Chest: few scattered rhonchi Cardiovascular: tachycardia Abdomen: soft, non tender, G tube Genitourinary: Garcia Neurologic/Psychiatric: abnormal gait Musculoskeletal: atrophy - BLE Microbiology Date/Time Source Procedure Growth Status 04/22/19 04:30 Sputum Induced Gram Stain - Final Resulted 04/22/19 04:30 Sputum Induced Sputum Culture Pending Resulted Laboratory Tests 04/23/19 06:00: White Blood Count 15.5H, Red Blood Count 3.72L, Hemoglobin 10.7L, Hematocrit 30.6L, Mean Corpuscular Volume 82, Mean Corpuscular Hemoglobin 28.6, Mean Corpuscular Hemoglobin Concent 34.8, Red Cell Distribution Width 18.1H, Platelet Count 463H, Mean Platelet Volume 7.0, Neutrophils (%) (Auto) 83.0H, Lymphocytes (%) (Auto) 8.8L, Monocytes (%) (Auto) 6.1, Eosinophils (%) (Auto) 1.5, Basophils (%) (Auto) 0.6, Sodium Level 136, Potassium Level 3.7, Chloride Level 103, Carbon Dioxide Level 27, Anion Gap 6, Blood Urea Nitrogen 14, Creatinine 0.8, Estimat Glomerular Filtration Rate > 60, Glucose Level 199H, Calcium Level 8.4L, Magnesium Level 2.1 Current Medications Medications (Trade) Dose Ordered Sig/Kory Route PRN Reason Start Time Stop Time Status Last Admin Dose Admin Acetaminophen (Tylenol) 650 mg Q6H PRN GT Mild Pain/Temp > 100.5 04/16/19 17:30 05/11/19 17:29 04/23/19 05:25 Albuterol/ Ipratropium (Albuterol/ Ipratropium) 3 ml Q4H PRN HHN Shortness of Breath 04/18/19 22:45 04/23/19 22:44 04/18/19 23:39 Dextrose 1,000 ml @ 75 mls/hr [id number] IV 04/16/19 17:15 05/13/19 11:59 04/23/19 09:51 Dextrose (Dextrose 50%) 25 ml Q30M PRN IV Hypoglycemia 04/16/19 17:30 05/13/19 16:29 Dextrose (Dextrose 50%) 50 ml Q30M PRN IV Hypoglycemia 04/16/19 17:30 05/13/19 16:29 Donepezil HCl (Aricept) 10 mg DAILY GT 04/17/19 09:00 05/12/19 08:59 04/23/19 09:48 Heparin Sodium (Porcine) (Heparin 5000 units/ml) 5,000 units EVERY 12 HOURS SUBQ 04/16/19 21:00 05/12/19 10:59 04/23/19 09:49 Insulin Aspart (NovoLOG) Q6HR SUBQ 04/16/19 18:00 05/13/19 17:59 04/23/19 12:30 Lactobacillus Acidophilus (Culturelle) 1 tab DAILY GT 04/17/19 09:00 05/12/19 08:59 04/23/19 09:48 Lansoprazole (Prevacid) 30 mg DAILY GT 04/17/19 09:00 05/12/19 08:59 04/23/19 09:48 Lorazepam (Ativan 2mg/ml 1ml) 1 mg Q4H PRN IV For Anxiety 04/20/19 10:30 04/27/19 10:29 04/20/19 15:29 Meropenem 1 gm/ Sodium Chloride 55 ml @ 110 mls/hr Q8HR IVPB 04/22/19 06:00 04/27/19 05:59 04/23/19 05:26 Multivitamins (Multivitamins W/ Minerals 15ml Liquid) 15 ml DAILY GT 04/17/19 09:00 05/12/19 08:59 04/23/19 09:48 Ondansetron HCl (Zofran) 4 mg Q6H PRN GT Nausea & Vomiting 04/16/19 17:30 05/12/19 17:29 Phenytoin 300 mg/ Sodium Chloride 55 ml @ 110 mls/hr DAILY IV 04/17/19 09:00 05/17/19 08:59 04/23/19 09:50 Primidone (Mysoline) 100 mg QHS GT 04/16/19 21:00 05/12/19 20:59 04/22/19 22:45 Vancomycin HCl (Vanco rx to dose) 1 ea DAILY PRN MISC Per rx protocol 04/22/19 04:30 05/22/19 04:29 Vancomycin HCl 1 gm/Dextrose 275 ml @ 183.708 mls/hr Q12H IVPB 04/22/19 05:00 04/27/19 04:59 04/23/19 05:06 Verapamil HCl (Calan) 80 mg EVERY 8 HOURS GT 04/18/19 14:45 05/16/19 14:44 04/22/19 06:33 Lizzette Balderas NP Apr 23, 2019 13:24
[2019-04-23 16:00] VITALS: BP 117/79
[2019-04-23] MEDS: Morphine Sulfate 4mg/ml Inj (IV USE ONLY) IVP PRN ×2 (16:29→23:49)
[2019-04-23] MEDS ORDERED: Morphine Sulfate 2mg/ml Inj(IV/IM USE ONLY) IVP PRN (16:30)
--- NOTE | 2019-04-23 18:30 | Progress Note ---
DATE: 04/23/2019 SUBJECTIVE: This is a 43-year-old male patient with sepsis. He has confusion, disorganized thought process, and altered mental status, worsened by stress of his medical illness. That is why, his attending has requested daily psychiatric consultation. MENTAL STATUS EXAMINATION: This is a 43-year-old male patient. His appearance is disheveled. Attitude, irritable and agitated. Affect, guarded and restricted. Intellect poor. Mood, depressed and anxious. Motor activity, psychomotor agitation. Insight and judgment is poor. DIAGNOSIS: PLAN: Plan for this patient is to titrate up on this patient's medications to stabilize his mood. Provided him with 20 minutes of behavioral management. Continue treatment with medications to stabilize his mood. A 20 minutes of reality-based supportive psychotherapy. Chart reviewed. Discussed with staff. Seen and assessed at bedside. . Osbaldo Bird M.D. DR: PADMINI JOB#: [id number] CC:
[2019-04-23] MEDS: Vancomycin 1.25gm/NS Premix IVPB SCH (18:45)
--- NOTE | 2019-04-23 19:25 | NUR ---
HAND-OFF: Report given to EDUAR Dawson.
--- NOTE | 2019-04-23 19:30 | NUR ---
NURSE NOTES: RECEIVED PT. FROM EDUAR UP. PT IS AWAKE, AAOX1, EYES OPEN SPONTANEOUSLY, RESPONSE TO EXTERNAL STIMULI. PT IS ON NASAL CANNULA 4L, SAT 98%. NO ACUTE DISTRESS. G-TUBE FEEDING IS INTACT AND PATENT, NO RESIDUALS, FLUSHING WELL, RUNNING JEVITY 1.2 AT 60ML/HR. LÓPEZ IS INTACT AND PATENT, DRAINING WELL, CLEAR YELLOW URINE NOTED. WOUND DRESSING ON SACRAL IS INTACT AND DRY. IV ON RIGHT AC IS INTACT AND PATENT. BED IS LOCKED AND LOW, BED ALARMS ACTIVE, SIDE RAILS UP X2 AND CALL LIGHT IS WITHIN REACH. WILL CONTINUE TO MONITOR.
[2019-04-23 20:00] VITALS: BP 123/87
[2019-04-24] VITALS: BP 106/68
[2019-04-24] MEDS: NovoLOG Insulin Flexpen SUBQ SCH ×5 (00:18→23:04)
[2019-04-24 04:00] VITALS: BP 93/57
[2019-04-24] MEDS: Verapamil 80mg tab GT SCH ×3 (06:00→21:00)
[2019-04-24] MEDS: Meropenem 1 GM in NS 55 ML IVPB SCH ×3 (06:09→21:00)
[2019-04-24] MEDS: Vancomycin 1.25gm/NS Premix IVPB SCH ×2 (06:11→18:51)
[2019-04-24 06:46] LABS: BASOPHILS % (AUTO) 1.7 % (0.0-2.0); EOSINOPHILS % (AUTO) 1.9 % (0.0-3.0); HEMATOCRIT 28.7 % (42.0-52.0); MEAN CORPUSCULAR VOLUME 83 FL (80-99); MONOCYTES % (AUTO) 10.3 % (1.0-10.0); NEUTROPHILS % (AUTO) 71.1 % (45.0-75.0); PLATELET COUNT 440 K/UL (150-450); RED BLOOD COUNT 3.47 M/UL (4.70-6.10); RED CELL DISTRIBUTION WIDTH 18.1 % (11.6-14.8); WHITE BLOOD COUNT 14.5 K/UL (4.8-10.8)
[2019-04-24 07:01] LABS: ALANINE AMINOTRANSFERASE 73 U/L (12-78); ALBUMIN 1.9 G/DL (3.4-5.0); ALBUMIN/GLOBULIN RATIO 0.4 (1.0-2.7); ALKALINE PHOSPHATASE 89 U/L (46-116); ANION GAP 5 mmol/L (5-15); ASPARTATE AMINO TRANSFERASE 37 U/L (15-37); BILIRUBIN,TOTAL 0.5 MG/DL (0.2-1.0); BLOOD UREA NITROGEN 9 mg/dL (7-18); CALCIUM 8.6 MG/DL (8.5-10.1); CARBON DIOXIDE 28 MMOL/L (21-32); CHLORIDE 103 MMOL/L (98-107); CREATININE 0.6 MG/DL (0.55-1.30); POTASSIUM 4.1 MMOL/L (3.5-5.1); SODIUM 136 MMOL/L (136-145)
[2019-04-24 07:40] LABS: PHOSPHORUS 2.1 MG/DL (2.5-4.9)
[2019-04-24 08:00] VITALS: BP 103/70
--- NOTE | 2019-04-24 08:00 | NUR ---
NURSE NOTES: Patient opens eyes when name called,respirations [id number] on at @3 L N/C.G-tube feedings in,progress no residual noted. HOB is elevated Abdomen soft.Garcia catheter is in place and draining clear yellow urine. IV fluids infusing as ordered.Bed alarm is on.
--- NOTE | 2019-04-24 08:08 | NUR ---
HAND-OFF: Report given to EDUAR Trejo.
[2019-04-24] MEDS: Multivitamins W/Minerals 15 ML UDC GT SCH (09:10)
[2019-04-24] MEDS: Heparin 5000 units/ml inj SUBQ SCH ×2 (09:10→21:00)
[2019-04-24] MEDS: Donepezil 10mg tab GT SCH (09:11)
[2019-04-24] MEDS: Lactobacillus-GG tablet GT SCH (09:11)
[2019-04-24] MEDS: PHENYTOIN IV SCH (09:11)
[2019-04-24] MEDS: NS IV SCH (09:11)
--- NOTE | 2019-04-24 09:33 | NUR ---
RD ASSESSMENT & RECOMMENDATIONS SEE CARE ACTIVITY FOR COMPLETE ASSESSMENT DAILY ESTIMATED NEEDS: Needs based on Severely underweight/ 45kg 35-40 kcals/kg 2108-0217 total kcals 1.5-2.0 g protein/kg 67-90 g total protein 25-35 mL/kg 0544-1123 total fluid mLs NUTRITION DIAGNOSIS: * Increased kcal/prot needs R/T severely underweight status and wt loss as evidenced by pt ~67% IBW, BMI of 15.5, w/ severe generalized wasting, possible significant wt loss of 50lbs/33% in <8 months as per report. 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 ENTERAL NUTRITION RECOMMENDATIONS: Jevity 1.2 @ 60ml/hr x 24 hrs to provide 1440ml, 1728kcal, 80g prot, 1162ml free water * Maintain current TF @goal rate of 60ml/hr x 24 hrs as tolerated * HOB over 30 degrees * Without IVF, water flush of 100ml q 6 hrs ADDITIONAL RECOMMENDATIONS: * Calibrated bedscale wt for accurate CBW -> weekly wt monitoring given h/o wt loss, severely underweight * Monitor lytes daily, replete as needed-> phos low * Monitor BGs, need for carb controlled TF-> good glycemic control * Sacral wound photo-> rec WC eval Add UMER in 4oz H2O BID via GT prophy * On added D5-> BG now elev (128-130) w/ AST trending up, need for ssi?
--- NOTE | 2019-04-24 09:54 | NUR ---
RADIOLOGY DEPT., CHEST X-RAY DONE.-P.DYE
--- NOTE | 2019-04-24 10:18 | General Progress Note ---
Assessment/Plan Problem List: (1) Pneumonia ICD Codes: J18.9 - Pneumonia, unspecified organism SNOMED: 362555400 (2) Sickle cell anemia ICD Codes: D57.1 - Sickle-cell disease without crisis SNOMED: 393247149 (3) Sepsis ICD Codes: A41.9 - Sepsis, unspecified organism SNOMED: 76126268 Status: unchanged Assessment/Plan: pt diet abx psyc neuro eval cbc bmp am Subjective Constitutional: Reports: weakness Allergies: Coded Allergies: No Known Allergies (Unverified , 04/11/19) All Systems: reviewed and negative except above Subjective o2nc sleepy calm Objective Last 24 Hour Vital Signs Date Time Temp Pulse Resp B/P (MAP) Pulse Ox O2 Delivery O2 Flow Rate FiO2 04/24/19 09:57 98 Nasal Cannula 3.0 32 04/24/19 06:00 103 98/64 04/24/19 04:00 98.4 109 25 93/57 (69) 99 04/24/19 00:00 98.1 112 24 106/68 (81) 98 04/23/19 21:54 100 127/100 04/23/19 21:00 Nasal Cannula 4.0 04/23/19 20:00 95 Nasal Cannula 3.0 32 04/23/19 20:00 98.8 122 24 123/87 (99) 99 04/23/19 16:00 99.0 121 20 117/79 (92) 96 04/23/19 14:00 119 119/80 04/23/19 12:00 99.3 104 19 111/78 (89) 98 Intake and Output 04/23/19 04/24/19 19:00 07:00 Intake Total 255 ml 2721.666 ml Output Total 1000 ml 1200 ml Balance -745 ml 1521.666 ml Intake Oral 0 ml 0 ml Free Water 120 ml 420 ml IV Total 75 ml 1521.666 ml Tube Feeding 60 ml 780 ml Output Urine Total 1000 ml 1200 ml # Voids 2 # Bowel Movements 1 Laboratory Tests 04/23/19 15:35: Vancomycin Level Trough 12.1H 04/24/19 05:44: White Blood Count 14.5H, Red Blood Count 3.47L, Hemoglobin 10.0L, Hematocrit 28.7L, Mean Corpuscular Volume 83, Mean Corpuscular Hemoglobin 28.9, Mean Corpuscular Hemoglobin Concent 35.0, Red Cell Distribution Width 18.1H, Platelet Count 440, Mean Platelet Volume 7.0, Neutrophils (%) (Auto) 71.1, Lymphocytes (%) (Auto) 15.0L, Monocytes (%) (Auto) 10.3H, Eosinophils (%) (Auto ) 1.9, Basophils (%) (Auto) 1.7, Sodium Level 136, Potassium Level 4.1, Chloride Level 103, Carbon Dioxide Level 28, Anion Gap 5, Blood Urea Nitrogen 9 , Creatinine 0.6, Estimat Glomerular Filtration Rate > 60, Glucose Level 133H, Calcium Level 8.6, Phosphorus Level 2.1L, Magnesium Level 2.0, Total Bilirubin 0.5, Aspartate Amino Transf (AST/SGOT) 37, Alanine Aminotransferase (ALT/SGPT) 73, Alkaline Phosphatase 89, Total Protein 7.3, Albumin 1.9L, Globulin 5.4, Albumin/Globulin Ratio 0.4L 04/24/19 08:55: Arterial Blood pH 7.463H, Arterial Blood Partial Pressure CO2 36.4, Arterial Blood Partial Pressure O2 95.4, Arterial Blood HCO3 25.5, Arterial Blood Oxygen Saturation 96.7, Arterial Blood Base Excess 1.8, Socrates Test Positive Height (Feet): 5 Height (Inches): 7.00 Weight (Pounds): 126 General Appearance: lethargic EENT: normal ENT inspection Neck: normal alignment Cardiovascular: normal peripheral pulses, normal rate, regular rhythm Respiratory/Chest: chest wall non-tender, lungs clear, normal breath sounds Abdomen: normal bowel sounds, non tender, soft Extremities: normal inspection Edema: no edema noted Arm (L), no edema noted Arm (R), no edema noted Leg (L), no edema noted Leg (R), no edema noted Pedal (L), no edema noted Pedal (R), no edema noted Generalized Neurologic: motor weakness Skin: normal pigmentation, warm/dry Marito Ortega DO Apr 24, 2019 10:18
--- NOTE | 2019-04-24 10:43 | Infectious Diseases Prog Note ---
Assessment/Plan Assessment/Plan Assessment: Sepsis PNA -04/16 CXR: Left greater than right bibasilar opacities may represent atelectasis versus pneumonia. Findings are decreased compared to prior exam. -CXR: Left basilar atelectasis and possible consolidation -sp cx PsA (ramirez S) -influenza sc neg -u/a neg Fever; SP Leukocytosis; decreasing Gram positive bacteremia- contaminant -04/11 Bcx 1/4 CONS; 04/12 Bcx NTD HTN dysphagia s/p GT cerebellar ataxia seizure disorder Alzheimer's dementia SNF resident Plan: Continue Meropenem #3 and Vancomycin #3 - f/u Sputum Cx - 04/22/19 SP Zosyn #3 -04/19 SP Cefepime #9 for PsA PNA -04/18 SP Azithromycin #7/7 -04/16 SP IV Vancomycin #6 -04/11 SP Ceftriaxone x1 -Monitor CBC/CMP, temperatures -GT care -aspiration precautions -CBC, CMP am -Cdiff if diarrhea Thank you for consulting [facility]. Will continue to follow along with you. Discussed with RN. Subjective Allergies: Coded Allergies: No Known Allergies (Unverified , 04/11/19) Subjective Afebrile so far today WBC down to 14 Pt on NC 3L Objective Vital Signs Last 24 Hour Vital Signs Date Time Temp Pulse Resp B/P (MAP) Pulse Ox O2 Delivery O2 Flow Rate FiO2 04/24/19 09:57 98 Nasal Cannula 3.0 32 04/24/19 06:00 103 98/64 04/24/19 04:00 98.4 109 25 93/57 (69) 99 04/24/19 00:00 98.1 112 24 106/68 (81) 98 04/23/19 21:54 100 127/100 04/23/19 21:00 Nasal Cannula 4.0 04/23/19 20:00 95 Nasal Cannula 3.0 32 04/23/19 20:00 98.8 122 24 123/87 (99) 99 04/23/19 16:00 99.0 121 20 117/79 (92) 96 04/23/19 14:00 119 119/80 04/23/19 12:00 99.3 104 19 111/78 (89) 98 Height (Feet): 5 Height (Inches): 7.00 Weight (Pounds): 126 Objective GENERAL: NAD, On 3L NC CARDIOVASCULAR: RRR, S1,S2 LUNGS: Coarse B/L ABDOMEN: Bowel sounds distant. Microbiology Date/Time Source Procedure Growth Status 04/22/19 13:15 Blood Blood Culture - Preliminary NO GROWTH AFTER 24 HOURS Resulted 04/22/19 13:00 Blood Blood Culture - Preliminary NO GROWTH AFTER 24 HOURS Resulted 04/22/19 04:30 Sputum Induced Gram Stain - Final Resulted 04/22/19 04:30 Sputum Culture - Preliminary Gram Negative Bacillus 1 Gram Negative Bacillus 2 Resulted Laboratory Tests Test 04/23/19 15:35 04/24/19 05:44 04/24/19 08:55 Vancomycin Level Trough 12.1 ug/mL (5.0-12.0) H White Blood Count 14.5 K/UL (4.8-10.8) H Red Blood Count 3.47 M/UL (4.70-6.10) L Hemoglobin 10.0 G/DL (14.2-18.0) L Hematocrit 28.7 % (42.0-52.0) L Mean Corpuscular Volume 83 FL (80-99) Mean Corpuscular Hemoglobin 28.9 PG (27.0-31.0) Mean Corpuscular Hemoglobin Concent 35.0 G/DL (32.0-36.0) Red Cell Distribution Width 18.1 % (11.6-14.8) H Platelet Count 440 K/UL (150-450) Mean Platelet Volume 7.0 FL (6.5-10.1) Neutrophils (%) (Auto) 71.1 % (45.0-75.0) Lymphocytes (%) (Auto) 15.0 % (20.0-45.0) L Monocytes (%) (Auto) 10.3 % (1.0-10.0) H Eosinophils (%) (Auto) 1.9 % (0.0-3.0) Basophils (%) (Auto) 1.7 % (0.0-2.0) Sodium Level 136 MMOL/L (136-145) Potassium Level 4.1 MMOL/L (3.5-5.1) Chloride Level 103 MMOL/L (98-107) Carbon Dioxide Level 28 MMOL/L (21-32) Anion Gap 5 mmol/L (5-15) Blood Urea Nitrogen 9 mg/dL (7-18) Creatinine 0.6 MG/DL (0.55-1.30) Estimat Glomerular Filtration Rate > 60 mL/min (>60) Glucose Level 133 MG/DL (74-106) H Calcium Level 8.6 MG/DL (8.5-10.1) Phosphorus Level 2.1 MG/DL (2.5-4.9) L Magnesium Level 2.0 MG/DL (1.8-2.4) Total Bilirubin 0.5 MG/DL (0.2-1.0) Aspartate Amino Transf (AST/SGOT) 37 U/L (15-37) Alanine Aminotransferase (ALT/SGPT) 73 U/L (12-78) Alkaline Phosphatase 89 U/L (46-116) Total Protein 7.3 G/DL (6.4-8.2) Albumin 1.9 G/DL (3.4-5.0) L Globulin 5.4 g/dL Albumin/Globulin Ratio 0.4 (1.0-2.7) L Arterial Blood pH 7.463 (7.350-7.450) Arterial Blood Partial Pressure CO2 36.4 mmHg (35.0-45.0) Arterial Blood Partial Pressure O2 95.4 mmHg (75.0-100.0) Arterial Blood HCO3 25.5 mmol/L (22.0-26.0) Arterial Blood Oxygen Saturation 96.7 % (95-100) Arterial Blood Base Excess 1.8 (-2-2) Socrates Test Positive Current Medications Medications (Trade) Dose Ordered Sig/Kory Route PRN Reason Start Time Stop Time Status Last Admin Dose Admin Acetaminophen (Tylenol) 650 mg Q6H PRN GT Mild Pain/Temp > 100.5 04/16/19 17:30 05/11/19 17:29 04/23/19 05:25 Dextrose 1,000 ml @ 75 mls/hr [id number] IV 04/16/19 17:15 05/13/19 11:59 04/23/19 23:44 Dextrose (Dextrose 50%) 25 ml Q30M PRN IV Hypoglycemia 04/16/19 17:30 05/13/19 16:29 Dextrose (Dextrose 50%) 50 ml Q30M PRN IV Hypoglycemia 04/16/19 17:30 05/13/19 16:29 Donepezil HCl (Aricept) 10 mg DAILY GT 04/17/19 09:00 05/12/19 08:59 04/24/19 09:11 Heparin Sodium (Porcine) (Heparin 5000 units/ml) 5,000 units EVERY 12 HOURS SUBQ 04/16/19 21:00 05/12/19 10:59 04/24/19 09:10 Insulin Aspart (NovoLOG) Q6HR SUBQ 04/16/19 18:00 05/13/19 17:59 04/24/19 06:26 Lactobacillus Acidophilus (Culturelle) 1 tab DAILY GT 04/17/19 09:00 05/12/19 08:59 04/24/19 09:11 Lansoprazole (Prevacid) 30 mg DAILY GT 04/17/19 09:00 05/12/19 08:59 04/24/19 09:10 Lorazepam (Ativan 2mg/ml 1ml) 1 mg Q4H PRN IV For Anxiety 04/20/19 10:30 04/27/19 10:29 04/20/19 15:29 Meropenem 1 gm/ Sodium Chloride 55 ml @ 110 mls/hr Q8HR IVPB 04/22/19 06:00 04/27/19 05:59 04/24/19 06:09 Morphine Sulfate (Morphine Sulfate) 4 mg Q4H PRN IVP For Pain 04/23/19 15:30 04/30/19 15:29 04/23/19 23:49 Multivitamins (Multivitamins W/ Minerals 15ml Liquid) 15 ml DAILY GT 04/17/19 09:00 05/12/19 08:59 04/24/19 09:10 Ondansetron HCl (Zofran) 4 mg Q6H PRN GT Nausea & Vomiting 04/16/19 17:30 05/12/19 17:29 Phenytoin 300 mg/ Sodium Chloride 55 ml @ 110 mls/hr DAILY IV 04/17/19 09:00 05/17/19 08:59 04/24/19 09:11 Primidone (Mysoline) 100 mg QHS GT 04/16/19 21:00 05/12/19 20:59 04/23/19 21:54 Vancomycin HCl (Vanco rx to dose) 1 ea DAILY PRN MISC Per rx protocol 04/22/19 04:30 05/22/19 04:29 Vancomycin/Sodium Chloride 275 ml @ 183.333 mls/hr Q12HR@0600,1800 IVPB 04/23/19 18:30 04/28/19 18:29 04/24/19 06:11 Verapamil HCl (Calan) 80 mg EVERY 8 HOURS GT 04/18/19 14:45 05/16/19 14:44 04/23/19 21:54 Rayshawn Soni MD Apr 24, 2019 10:43
--- NOTE | 2019-04-24 11:31 | NUR ---
NURSE NOTES: Lab called to report yeast growth in blood culture x1 bottle. New order received.
--- NOTE | 2019-04-24 11:33 | NUR ---
NURSE NOTES: New order received from Dr. Soni regarding yeast growth in blood culture bottle x1.
[2019-04-24 12:00] VITALS: BP 104/66
--- NOTE | 2019-04-24 12:12 | Pulmonology Progress Note ---
Assessment/Plan Assessment/Plan Sepsis Pneumonia Cavitary lung disease Seizure disorder Dysphagia ,feeding by G-tube Chronic tachycardia Cerebellar ataxia Alzheimer dementia PLAN of CARE IVF O2 HHN prn CXR reviewed abx per ID recs DVT and GI prophylaxis continue PT seizure precaution, continue Dilantin strict aspiration precaution, G-tube feeding Subjective ROS Limited/Unobtainable: Yes Allergies: Coded Allergies: No Known Allergies (Unverified , 04/11/19) Objective Last 24 Hour Vital Signs Date Time Temp Pulse Resp B/P (MAP) Pulse Ox O2 Delivery O2 Flow Rate FiO2 04/24/19 09:57 98 Nasal Cannula 3.0 32 04/24/19 09:00 Nasal Cannula 4.0 04/24/19 08:00 98.2 104 23 103/70 (81) 99 04/24/19 06:00 103 98/64 04/24/19 04:00 98.4 109 25 93/57 (69) 99 04/24/19 00:00 98.1 112 24 106/68 (81) 98 04/23/19 21:54 100 127/100 04/23/19 21:00 Nasal Cannula 4.0 04/23/19 20:00 95 Nasal Cannula 3.0 32 04/23/19 20:00 98.8 122 24 123/87 (99) 99 04/23/19 16:00 99.0 121 20 117/79 (92) 96 04/23/19 14:00 119 119/80 Intake and Output 04/23/19 04/24/19 18:59 06:59 Intake Total 2796.666 ml Output Total 1000 ml 1200 ml Balance -1000 ml 1596.666 ml Intake Oral 0 ml Free Water 420 ml IV Total 1596.666 ml Tube Feeding 780 ml Output Urine Total 1000 ml 1200 ml # Voids 2 # Bowel Movements 1 Objective awake, no response or eye contact General Appearance: no acute distress HEENT: atraumatic Respiratory/Chest: lungs clear Cardiovascular: normal rate Microbiology Date/Time Source Procedure Growth Status 04/22/19 13:15 Blood Blood Culture - Preliminary NO GROWTH AFTER 24 HOURS Resulted 04/22/19 13:00 Blood Blood Culture - Preliminary Resulted 04/22/19 04:30 Sputum Induced Gram Stain - Final Resulted 04/22/19 04:30 Sputum Culture - Preliminary Gram Negative Bacillus 1 Gram Negative Bacillus 2 Resulted Laboratory Tests 04/23/19 15:35: Vancomycin Level Trough 12.1H 04/24/19 05:44: White Blood Count 14.5H, Red Blood Count 3.47L, Hemoglobin 10.0L, Hematocrit 28.7L, Mean Corpuscular Volume 83, Mean Corpuscular Hemoglobin 28.9, Mean Corpuscular Hemoglobin Concent 35.0, Red Cell Distribution Width 18.1H, Platelet Count 440, Mean Platelet Volume 7.0, Neutrophils (%) (Auto) 71.1, Lymphocytes (%) (Auto) 15.0L, Monocytes (%) (Auto) 10.3H, Eosinophils (%) (Auto ) 1.9, Basophils (%) (Auto) 1.7, Sodium Level 136, Potassium Level 4.1, Chloride Level 103, Carbon Dioxide Level 28, Anion Gap 5, Blood Urea Nitrogen 9 , Creatinine 0.6, Estimat Glomerular Filtration Rate > 60, Glucose Level 133H, Calcium Level 8.6, Phosphorus Level 2.1L, Magnesium Level 2.0, Total Bilirubin 0.5, Aspartate Amino Transf (AST/SGOT) 37, Alanine Aminotransferase (ALT/SGPT) 73, Alkaline Phosphatase 89, Total Protein 7.3, Albumin 1.9L, Globulin 5.4, Albumin/Globulin Ratio 0.4L 04/24/19 08:55: Arterial Blood pH 7.463H, Arterial Blood Partial Pressure CO2 36.4, Arterial Blood Partial Pressure O2 95.4, Arterial Blood HCO3 25.5, Arterial Blood Oxygen Saturation 96.7, Arterial Blood Base Excess 1.8, Socrates Test Positive Current Medications Medications (Trade) Dose Ordered Sig/Kory Route PRN Reason Start Time Stop Time Status Last Admin Dose Admin Acetaminophen (Tylenol) 650 mg Q6H PRN GT Mild Pain/Temp > 100.5 04/16/19 17:30 05/11/19 17:29 04/23/19 05:25 Dextrose 1,000 ml @ 75 mls/hr [id number] IV 04/16/19 17:15 05/13/19 11:59 04/23/19 23:44 Dextrose (Dextrose 50%) 25 ml Q30M PRN IV Hypoglycemia 04/16/19 17:30 05/13/19 16:29 Dextrose (Dextrose 50%) 50 ml Q30M PRN IV Hypoglycemia 04/16/19 17:30 05/13/19 16:29 Donepezil HCl (Aricept) 10 mg DAILY GT 04/17/19 09:00 05/12/19 08:59 04/24/19 09:11 Heparin Sodium (Porcine) (Heparin 5000 units/ml) 5,000 units EVERY 12 HOURS SUBQ 04/16/19 21:00 05/12/19 10:59 04/24/19 09:10 Insulin Aspart (NovoLOG) Q6HR SUBQ 04/16/19 18:00 05/13/19 17:59 04/24/19 06:26 Lactobacillus Acidophilus (Culturelle) 1 tab DAILY GT 04/17/19 09:00 05/12/19 08:59 04/24/19 09:11 Lansoprazole (Prevacid) 30 mg DAILY GT 04/17/19 09:00 05/12/19 08:59 04/24/19 09:10 Lorazepam (Ativan 2mg/ml 1ml) 1 mg Q4H PRN IV For Anxiety 04/20/19 10:30 04/27/19 10:29 04/20/19 15:29 Meropenem 1 gm/ Sodium Chloride 55 ml @ 110 mls/hr Q8HR IVPB 04/22/19 06:00 04/27/19 05:59 04/24/19 06:09 Micafungin Sodium 100 mg/Sodium Chloride 110 ml @ 110 mls/hr Q24H IVPB 04/24/19 12:00 05/01/19 11:59 Morphine Sulfate (Morphine Sulfate) 4 mg Q4H PRN IVP For Pain 04/23/19 15:30 04/30/19 15:29 04/23/19 23:49 Multivitamins (Multivitamins W/ Minerals 15ml Liquid) 15 ml DAILY GT 04/17/19 09:00 05/12/19 08:59 04/24/19 09:10 Ondansetron HCl (Zofran) 4 mg Q6H PRN GT Nausea & Vomiting 04/16/19 17:30 05/12/19 17:29 Phenytoin 300 mg/ Sodium Chloride 55 ml @ 110 mls/hr DAILY IV 04/17/19 09:00 05/17/19 08:59 04/24/19 09:11 Primidone (Mysoline) 100 mg QHS GT 04/16/19 21:00 05/12/19 20:59 04/23/19 21:54 Vancomycin HCl (Vanco rx to dose) 1 ea DAILY PRN MISC Per rx protocol 04/22/19 04:30 05/22/19 04:29 Vancomycin/Sodium Chloride 275 ml @ 183.333 mls/hr Q12HR@0600,1800 IVPB 04/23/19 18:30 04/28/19 18:29 04/24/19 06:11 Verapamil HCl (Calan) 80 mg EVERY 8 HOURS GT 04/18/19 14:45 05/16/19 14:44 04/23/19 21:54 Toby Bridges MD Apr 24, 2019 12:12
[2019-04-24] MEDS: Micafungin 100 MG in NS 110 ML IVPB SCH (12:40)
--- NOTE | 2019-04-24 13:34 | Diagnostic Imaging Report ---
Indication: Dyspnea Comparison: 04/23/2019 A single view chest radiograph was obtained. Findings: Elevation of the left hemidiaphragm is again noted and stable. There is likely left basal atelectasis. Heart size is stable. Bones are osteopenic. 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
[2019-04-24 16:00] VITALS: BP 102/60
--- NOTE | 2019-04-24 17:21 | NUR ---
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 97.6 HR 103 RR 22 B/P 104/76 3L NC WBC 14.5 CXR= NO ACUTE CHANGES IS: MICAFUNGIN IV VANCO IV MEROPENEM IV IVF D5NS @ 75ML/HR MED/SURG STATUS
--- NOTE | 2019-04-24 18:00 | NUR ---
NURSE NOTES: Skin care given,patient had a small soft light brown BM.Patient tolerating G-tube feedings.Oral care given.Turned and position.
--- NOTE | 2019-04-24 18:30 | Progress Note ---
DATE: 04/24/2019 SUBJECTIVE: The patient is a 43-year-old male with sepsis. He still has altered mental status, confusion, decline in cognition below his baseline. That is why, daily consultation because he has altered mental status, confusion, mood lability. MENTAL STATUS EXAMINATION: This is a 43-year-old male. Appearance is disheveled. Attitude, irritable and agitated. Affect, guarded and restricted. Intellect poor. Mood, depressed and anxious. Motor activity, psychomotor agitation. Attention span is poor. Orientation x2. Speech is low volume, slurred. Thought process, disorganized, illogical. Insight and judgment is poor. DIAGNOSIS: Paranoid schizophrenia with acute exacerbation. PLAN: Continue titrating up on his medications. Provide him with 20 minutes of reality-based supportive psychotherapy. Chart reviewed. Discussed with staff. 20 minutes of behavioral management provided. Osbaldo Bird M.D. DR: CHRISTOPHER JOB#: [id number] CC:
--- NOTE | 2019-04-24 19:48 | NUR ---
HAND-OFF: Report given to Erick WITT.
[2019-04-24 20:00] VITALS: BP 117/81
--- NOTE | 2019-04-24 20:00 | NUR ---
NURSE NOTES: Patient received in bed, awake, nonverbal. IV infusing on right hand. FC draining via gravity. On o2 via NC at 3LPM saturating 96-100%. Oral suction often. GTF at 60cc/hr. Bed locked in low position. HOB elevated, aspiration precaution.
[2019-04-24] MEDS: Morphine Sulfate 4mg/ml Inj (IV USE ONLY) IVP PRN (21:40)
[2019-04-25 00:07] VITALS: BP 125/87
[2019-04-25 04:00] VITALS: BP 109/78
[2019-04-25] MEDS: Verapamil 80mg tab GT SCH ×3 (05:05→21:52)
[2019-04-25] MEDS: NovoLOG Insulin Flexpen SUBQ SCH ×4 (05:05→23:49)
[2019-04-25] MEDS: Meropenem 1 GM in NS 55 ML IVPB SCH (05:06)
[2019-04-25] MEDS: Vancomycin 1.25gm/NS Premix IVPB SCH (06:14)
[2019-04-25 07:09] LABS: HEMATOCRIT 31.6 % (42.0-52.0); MEAN CORPUSCULAR VOLUME 83 FL (80-99); PLATELET COUNT 478 K/UL (150-450); RED CELL DISTRIBUTION WIDTH 18.7 % (11.6-14.8); WHITE BLOOD COUNT 18.4 K/UL (4.8-10.8)
--- NOTE | 2019-04-25 07:18 | NUR ---
HAND-OFF: Report given to Venkat WITT.
[2019-04-25 07:32] LABS: ANION GAP 8 mmol/L (5-15); BLOOD UREA NITROGEN 10 mg/dL (7-18); CALCIUM 9.3 MG/DL (8.5-10.1); CARBON DIOXIDE 29 MMOL/L (21-32); CHLORIDE 102 MMOL/L (98-107); CREATININE 0.6 MG/DL (0.55-1.30); POTASSIUM 4.3 MMOL/L (3.5-5.1); SODIUM 139 MMOL/L (136-145)
[2019-04-25 07:57] VITALS: BP 114/74
[2019-04-25] MEDS: Morphine Sulfate 4mg/ml Inj (IV USE ONLY) IVP PRN ×2 (08:39→14:00)
[2019-04-25] MEDS: Multivitamins W/Minerals 15 ML UDC GT SCH (08:39)
[2019-04-25] MEDS: Donepezil 10mg tab GT SCH (08:39)
[2019-04-25] MEDS: Lactobacillus-GG tablet GT SCH (08:39)
[2019-04-25] MEDS: Heparin 5000 units/ml inj SUBQ SCH ×2 (08:41→21:53)
[2019-04-25] MEDS: PHENYTOIN IV SCH (09:15)
[2019-04-25] MEDS: NS IV SCH (09:15)
--- NOTE | 2019-04-25 10:16 | NUR ---
NURSE NOTES: PT IS NONVERBAL, RESTING IN BED, IN HIGH-EMLARA'S POSITION WITH HOB ELEVATED. PT WAS RESTLESS, MOANING AND UNABLE TO CONSOLE. RN ADMINISTERED PRN MORPHINE 4MG IVP ORDERED PRN PAIN. UPON REASSESSMENT, PT IS CALM AND NO LONGER RESTLESS. GTUBE DRESSING CHANGED. STOMA IS CLEAN AND RED. GTUBE FEEDING JEVITY 1.2 RUNNING AT 60CC/H. NO RESIDUAL NOTED. LÓPEZ CATH DRAINING CLEAR YELLOW URINE BY GRAVITY. PT WAS REPOSITIONED AND CLEANED. WILL CONTINUE TO MONITOR.
--- NOTE | 2019-04-25 10:30 | Infectious Diseases Prog Note ---
Assessment/Plan Assessment/Plan Assessment: Sepsis Fungemia Blood Cx 04/22/19 - Yeast PNA - 04/22/19 Sp Cx P.a. and acenetobacter -04/16 CXR: Left greater than right bibasilar opacities may represent atelectasis versus pneumonia. Findings are decreased compared to prior exam. -CXR: Left basilar atelectasis and possible consolidation -sp cx PsA (ramirez S) -influenza sc neg -u/a neg Fever; SP Leukocytosis; decreasing Gram positive bacteremia- contaminant -04/11 Bcx / CONS; 04/12 Bcx NTD HTN dysphagia s/p GT cerebellar ataxia seizure disorder Alzheimer's dementia SNF resident Plan: - Repeat Blood Cx - Continue Micafungin #1 - Start Zosyn and Bactrim - get TTE to R/O IE - 04/24 SP Meropenem #3 and Vancomycin #3 - 04/22/19 SP Zosyn #3 -04/19 SP Cefepime #9 for PsA PNA -04/18 SP Azithromycin #7/7 -04/16 SP IV Vancomycin #6 -04/11 SP Ceftriaxone x1 -Monitor CBC/CMP, temperatures -GT care -aspiration precautions -CBC, CMP am -Cdiff if diarrhea Thank you for consulting [facility]. Will continue to follow along with you. Discussed with RN. Subjective Allergies: Coded Allergies: No Known Allergies (Unverified , 04/11/19) Subjective Afebrile so far today Leukocytosis of 18 Pt on NC 3L Objective Vital Signs Last 24 Hour Vital Signs Date Time Temp Pulse Resp B/P (MAP) Pulse Ox O2 Delivery O2 Flow Rate FiO2 04/25/19 09:00 Nasal Cannula 3.0 04/25/19 08:01 100 Nasal Cannula 3.0 32 04/25/19 07:57 98.3 100 19 114/74 (87) 97 04/25/19 05:05 113 109/78 04/25/19 04:00 98.2 113 20 109/78 (88) 98 04/25/19 00:07 98.1 121 26 125/87 (100) 98 04/24/19 21:00 Nasal Cannula 3.0 04/24/19 21:00 108 117/81 04/24/19 20:00 97.7 108 24 117/81 (93) 100 12/23/19 16:00 97.7 107 21 102/60 (74) 100 04/24/19 14:00 104 102/72 04/24/19 12:00 97.6 103 22 104/66 (79) 97 Height (Feet): 5 Height (Inches): 7.00 Weight (Pounds): 126 Objective GENERAL: NAD awake, On 3L NC CARDIOVASCULAR: RRR, S1,S2 LUNGS: Coarse B/L ABDOMEN: Bowel sounds distant. Microbiology Date/Time Source Procedure Growth Status 04/22/19 13:15 Blood Blood Culture - Preliminary NO GROWTH AFTER 48 HOURS Resulted 04/22/19 13:00 Blood Blood Culture - Preliminary Yeast Species Resulted Laboratory Tests Test 04/25/19 05:21 White Blood Count 18.4 K/UL (4.8-10.8) H Red Blood Count 3.80 M/UL (4.70-6.10) L Hemoglobin 11.0 G/DL (14.2-18.0) L Hematocrit 31.6 % (42.0-52.0) L Mean Corpuscular Volume 83 FL (80-99) Mean Corpuscular Hemoglobin 29.0 PG (27.0-31.0) Mean Corpuscular Hemoglobin Concent 34.9 G/DL (32.0-36.0) Red Cell Distribution Width 18.7 % (11.6-14.8) H Platelet Count 478 K/UL (150-450) H Mean Platelet Volume 6.8 FL (6.5-10.1) Neutrophils (%) (Auto) % (45.0-75.0) Lymphocytes (%) (Auto) % (20.0-45.0) Monocytes (%) (Auto) % (1.0-10.0) Eosinophils (%) (Auto) % (0.0-3.0) Basophils (%) (Auto) % (0.0-2.0) Differential Total Cells Counted 100 Neutrophils % (Manual) 80 % (45-75) H Lymphocytes % (Manual) 12 % (20-45) L Monocytes % (Manual) 8 % (1-10) Eosinophils % (Manual) 0 % (0-3) Basophils % (Manual) 0 % (0-2) Band Neutrophils 0 % (0-8) Platelet Estimate Adequate Platelet Morphology Normal Polychromasia 1+ Hypochromasia 1+ Anisocytosis 1+ Sodium Level 139 MMOL/L (136-145) Potassium Level 4.3 MMOL/L (3.5-5.1) Chloride Level 102 MMOL/L (98-107) Carbon Dioxide Level 29 MMOL/L (21-32) Anion Gap 8 mmol/L (5-15) Blood Urea Nitrogen 10 mg/dL (7-18) Creatinine 0.6 MG/DL (0.55-1.30) Estimat Glomerular Filtration Rate > 60 mL/min (>60) Glucose Level 93 MG/DL (74-106) Calcium Level 9.3 MG/DL (8.5-10.1) Current Medications Medications (Trade) Dose Ordered Sig/Kory Route PRN Reason Start Time Stop Time Status Last Admin Dose Admin Acetaminophen (Tylenol) 650 mg Q6H PRN GT Mild Pain/Temp > 100.5 04/16/19 17:30 05/11/19 17:29 04/23/19 05:25 Dextrose 1,000 ml @ 75 mls/hr [id number] IV 04/16/19 17:15 05/13/19 11:59 04/25/19 01:01 Dextrose (Dextrose 50%) 25 ml Q30M PRN IV Hypoglycemia 04/16/19 17:30 05/13/19 16:29 Dextrose (Dextrose 50%) 50 ml Q30M PRN IV Hypoglycemia 04/16/19 17:30 05/13/19 16:29 Donepezil HCl (Aricept) 10 mg DAILY GT 04/17/19 09:00 05/12/19 08:59 04/25/19 08:39 Heparin Sodium (Porcine) (Heparin 5000 units/ml) 5,000 units EVERY 12 HOURS SUBQ 04/16/19 21:00 05/12/19 10:59 04/25/19 08:41 Insulin Aspart (NovoLOG) Q6HR SUBQ 04/16/19 18:00 05/13/19 17:59 04/24/19 18:43 Lactobacillus Acidophilus (Culturelle) 1 tab DAILY GT 04/17/19 09:00 05/12/19 08:59 04/25/19 08:39 Lansoprazole (Prevacid) 30 mg DAILY GT 04/17/19 09:00 05/12/19 08:59 04/25/19 08:39 Lorazepam (Ativan 2mg/ml 1ml) 1 mg Q4H PRN IV For Anxiety 04/20/19 10:30 04/27/19 10:29 04/20/19 15:29 Meropenem 1 gm/ Sodium Chloride 55 ml @ 110 mls/hr Q8HR IVPB 04/22/19 06:00 04/27/19 05:59 04/25/19 05:06 Micafungin Sodium 100 mg/Sodium Chloride 110 ml @ 110 mls/hr Q24H IVPB 04/24/19 12:00 05/01/19 11:59 04/24/19 12:40 Morphine Sulfate (Morphine Sulfate) 4 mg Q4H PRN IVP For Pain 04/23/19 15:30 04/30/19 15:29 04/25/19 08:39 Multivitamins (Multivitamins W/ Minerals 15ml Liquid) 15 ml DAILY GT 04/17/19 09:00 05/12/19 08:59 04/25/19 08:39 Ondansetron HCl (Zofran) 4 mg Q6H PRN GT Nausea & Vomiting 04/16/19 17:30 05/12/19 17:29 Phenytoin 300 mg/ Sodium Chloride 55 ml @ 110 mls/hr DAILY IV 04/17/19 09:00 05/17/19 08:59 04/25/19 09:15 Primidone (Mysoline) 100 mg QHS GT 04/16/19 21:00 05/12/19 20:59 04/24/19 21:00 Vancomycin HCl (Vanco rx to dose) 1 ea DAILY PRN MISC Per rx protocol 04/22/19 04:30 05/22/19 04:29 Vancomycin/Sodium Chloride 275 ml @ 183.333 mls/hr Q12HR@0600,1800 IVPB 04/23/19 18:30 04/28/19 18:29 04/25/19 06:14 Verapamil HCl (Calan) 80 mg EVERY 8 HOURS GT 04/18/19 14:45 05/16/19 14:44 04/23/19 21:54 Rayshawn Soni MD Apr 25, 2019 10:30
[2019-04-25] MEDS ORDERED: Tubing IV Secondary IV ONE (10:54)
--- NOTE | 2019-04-25 11:52 | Pulmonology Progress Note ---
Assessment/Plan Assessment/Plan Sepsis w fungemia Pneumonia Cavitary lung disease Seizure disorder Dysphagia ,feeding by G-tube Chronic tachycardia Cerebellar ataxia Alzheimer dementia PLAN of CARE IVF O2 HHN prn CXR reviewed abx per ID recs, added micafungin DVT and GI prophylaxis strict aspiration precaution, G-tube feeding prognosis poor Subjective ROS Limited/Unobtainable: Yes Allergies: Coded Allergies: No Known Allergies (Unverified , 04/11/19) Objective Last 24 Hour Vital Signs Date Time Temp Pulse Resp B/P (MAP) Pulse Ox O2 Delivery O2 Flow Rate FiO2 04/25/19 09:00 Nasal Cannula 3.0 04/25/19 08:01 100 Nasal Cannula 3.0 32 04/25/19 07:57 98.3 100 19 114/74 (87) 97 04/25/19 05:05 113 109/78 04/25/19 04:00 98.2 113 20 109/78 (88) 98 04/25/19 00:07 98.1 121 26 125/87 (100) 98 04/24/19 21:00 Nasal Cannula 3.0 04/24/19 21:00 108 117/81 04/24/19 20:00 97.7 108 24 117/81 (93) 100 04/24/19 16:00 97.7 107 21 102/60 (74) 100 04/24/19 14:00 104 102/72 04/24/19 12:00 97.6 103 22 104/66 (79) 97 Intake and Output 04/24/19 04/25/19 19:00 07:00 Intake Total 1860 ml 2180.00 ml Output Total 2700 ml 2400 ml Balance -840 ml -220.00 ml Intake Oral 0 ml Free Water 240 ml 360 ml IV Total 900 ml 1040.00 ml Tube Feeding 720 ml 780 ml Output Urine Total 2700 ml 2400 ml # Bowel Movements 1 Objective awake, no response or eye contact General Appearance: no acute distress, cachetic Respiratory/Chest: lungs clear, other - stertorous resp Cardiovascular: normal rate Microbiology Date/Time Source Procedure Growth Status 04/22/19 13:15 Blood Blood Culture - Preliminary NO GROWTH AFTER 48 HOURS Resulted 04/22/19 13:00 Blood Blood Culture - Preliminary Yeast Species Resulted Laboratory Tests 04/25/19 05:21: White Blood Count 18.4H, Red Blood Count 3.80L, Hemoglobin 11.0L, Hematocrit 31.6L, Mean Corpuscular Volume 83, Mean Corpuscular Hemoglobin 29.0, Mean Corpuscular Hemoglobin Concent 34.9, Red Cell Distribution Width 18.7H, Platelet Count 478H, Mean Platelet Volume 6.8, Neutrophils (%) (Auto) , Lymphocytes (%) (Auto) , Monocytes (%) (Auto) , Eosinophils (%) (Auto) , Basophils (%) (Auto) , Differential Total Cells Counted 100, Neutrophils % ( Manual) 80H, Lymphocytes % (Manual) 12L, Monocytes % (Manual) 8, Eosinophils % ( Manual) 0, Basophils % (Manual) 0, Band Neutrophils 0, Platelet Estimate Adequate, Platelet Morphology Normal, Polychromasia 1+, Hypochromasia 1+, Anisocytosis 1+, Sodium Level 139, Potassium Level 4.3, Chloride Level 102, Carbon Dioxide Level 29, Anion Gap 8, Blood Urea Nitrogen 10, Creatinine 0.6, Estimat Glomerular Filtration Rate > 60, Glucose Level 93, Calcium Level 9.3 Current Medications Medications (Trade) Dose Ordered Sig/Kory Route PRN Reason Start Time Stop Time Status Last Admin Dose Admin Acetaminophen (Tylenol) 650 mg Q6H PRN GT Mild Pain/Temp > 100.5 04/16/19 17:30 05/11/19 17:29 04/23/19 05:25 Dextrose 1,000 ml @ 75 mls/hr [id number] IV 04/16/19 17:15 05/13/19 11:59 04/25/19 01:01 Dextrose (Dextrose 50%) 25 ml Q30M PRN IV Hypoglycemia 04/16/19 17:30 05/13/19 16:29 Dextrose (Dextrose 50%) 50 ml Q30M PRN IV Hypoglycemia 04/16/19 17:30 05/13/19 16:29 Donepezil HCl (Aricept) 10 mg DAILY GT 04/17/19 09:00 05/12/19 08:59 04/25/19 08:39 Heparin Sodium (Porcine) (Heparin 5000 units/ml) 5,000 units EVERY 12 HOURS SUBQ 04/16/19 21:00 05/12/19 10:59 04/25/19 08:41 Insulin Aspart (NovoLOG) Q6HR SUBQ 04/16/19 18:00 05/13/19 17:59 04/24/19 18:43 Lactobacillus Acidophilus (Culturelle) 1 tab DAILY GT 04/17/19 09:00 05/12/19 08:59 04/25/19 08:39 Lansoprazole (Prevacid) 30 mg DAILY GT 04/17/19 09:00 05/12/19 08:59 04/25/19 08:39 Lorazepam (Ativan 2mg/ml 1ml) 1 mg Q4H PRN IV For Anxiety 04/20/19 10:30 04/27/19 10:29 04/20/19 15:29 Micafungin Sodium 100 mg/Sodium Chloride 110 ml @ 110 mls/hr Q24H IVPB 04/24/19 12:00 05/01/19 11:59 04/24/19 12:40 Morphine Sulfate (Morphine Sulfate) 4 mg Q4H PRN IVP For Pain 04/23/19 15:30 04/30/19 15:29 04/25/19 08:39 Multivitamins (Multivitamins W/ Minerals 15ml Liquid) 15 ml DAILY GT 04/17/19 09:00 05/12/19 08:59 04/25/19 08:39 Ondansetron HCl (Zofran) 4 mg Q6H PRN GT Nausea & Vomiting 04/16/19 17:30 05/12/19 17:29 Phenytoin 300 mg/ Sodium Chloride 55 ml @ 110 mls/hr DAILY IV 04/17/19 09:00 05/17/19 08:59 04/25/19 09:15 Piperacillin Sod/ Tazobactam Sod 3.375 gm/Sodium Chloride 110 ml @ 27.5 mls/hr EVERY 8 HOURS IVPB 04/25/19 14:00 04/30/19 13:59 Primidone (Mysoline) 100 mg QHS GT 04/16/19 21:00 05/12/19 20:59 04/24/19 21:00 Trimethoprim/ Sulfamethoxazole 12 ml/Dextrose 562 ml @ 374.667 mls/hr [id number] BACTRIM IV 04/25/19 16:00 05/02/19 15:59 Verapamil HCl (Calan) 80 mg EVERY 8 HOURS GT 04/18/19 14:45 05/16/19 14:44 04/23/19 21:54 Toby Bridges MD Apr 25, 2019 11:52
[2019-04-25] MEDS: Micafungin 100 MG in NS 110 ML IVPB SCH (11:58)
[2019-04-25] MEDS: LORazepam Inj 2mg/ml 1ml IV PRN (11:59)
[2019-04-25 12:00] VITALS: BP 122/80
--- NOTE | 2019-04-25 13:03 | General Progress Note ---
Assessment/Plan Problem List: (1) Pneumonia ICD Codes: J18.9 - Pneumonia, unspecified organism SNOMED: 613333052 (2) Sickle cell anemia ICD Codes: D57.1 - Sickle-cell disease without crisis SNOMED: 506590282 (3) Sepsis ICD Codes: A41.9 - Sepsis, unspecified organism SNOMED: 15483926 Status: unchanged Assessment/Plan: pt diet abx psyc neuro eval cbc bmp am Subjective Constitutional: Reports: weakness Allergies: Coded Allergies: No Known Allergies (Unverified , 04/11/19) All Systems: reviewed and negative except above Subjective o2nc sleepy calm Objective Last 24 Hour Vital Signs Date Time Temp Pulse Resp B/P (MAP) Pulse Ox O2 Delivery O2 Flow Rate FiO2 04/25/19 12:00 98.5 106 20 122/80 (94) 98 04/25/19 09:00 Nasal Cannula 3.0 04/25/19 08:01 100 Nasal Cannula 3.0 32 04/25/19 07:57 98.3 100 19 114/74 (87) 97 04/25/19 05:05 113 109/78 04/25/19 04:00 98.2 113 20 109/78 (88) 98 04/25/19 00:07 98.1 121 26 125/87 (100) 98 04/24/19 21:00 Nasal Cannula 3.0 04/24/19 21:00 108 117/81 04/24/19 20:00 97.7 108 24 117/81 (93) 100 04/24/19 16:00 97.7 107 21 102/60 (74) 100 04/24/19 14:00 104 102/72 Intake and Output 04/24/19 04/25/19 19:00 07:00 Intake Total 1860 ml 2180.00 ml Output Total 2700 ml 2400 ml Balance -840 ml -220.00 ml Intake Oral 0 ml Free Water 240 ml 360 ml IV Total 900 ml 1040.00 ml Tube Feeding 720 ml 780 ml Output Urine Total 2700 ml 2400 ml # Bowel Movements 1 Laboratory Tests 04/25/19 05:21: White Blood Count 18.4H, Red Blood Count 3.80L, Hemoglobin 11.0L, Hematocrit 31.6L, Mean Corpuscular Volume 83, Mean Corpuscular Hemoglobin 29.0, Mean Corpuscular Hemoglobin Concent 34.9, Red Cell Distribution Width 18.7H, Platelet Count 478H, Mean Platelet Volume 6.8, Neutrophils (%) (Auto) , Lymphocytes (%) (Auto) , Monocytes (%) (Auto) , Eosinophils (%) (Auto) , Basophils (%) (Auto) , Differential Total Cells Counted 100, Neutrophils % ( Manual) 80H, Lymphocytes % (Manual) 12L, Monocytes % (Manual) 8, Eosinophils % ( Manual) 0, Basophils % (Manual) 0, Band Neutrophils 0, Platelet Estimate Adequate, Platelet Morphology Normal, Polychromasia 1+, Hypochromasia 1+, Anisocytosis 1+, Sodium Level 139, Potassium Level 4.3, Chloride Level 102, Carbon Dioxide Level 29, Anion Gap 8, Blood Urea Nitrogen 10, Creatinine 0.6, Estimat Glomerular Filtration Rate > 60, Glucose Level 93, Calcium Level 9.3 Height (Feet): 5 Height (Inches): 7.00 Weight (Pounds): 126 General Appearance: lethargic EENT: normal ENT inspection Neck: normal inspection Cardiovascular: normal peripheral pulses, normal rate, regular rhythm Respiratory/Chest: chest wall non-tender, lungs clear, normal breath sounds Abdomen: normal bowel sounds, non tender, soft Extremities: normal inspection Edema: no edema noted Arm (L), no edema noted Arm (R), no edema noted Leg (L), no edema noted Leg (R), no edema noted Pedal (L), no edema noted Pedal (R), no edema noted Generalized Neurologic: motor weakness Skin: normal pigmentation, warm/dry Marito Ortega DO Apr 25, 2019 13:03
--- NOTE | 2019-04-25 13:08 | NUR ---
NURSE NOTES: RN LEFT MESSAGE FOR DR LAKE'S EXCHANGE REGARDING MDR SPUTUM.
--- NOTE | 2019-04-25 14:09 | NUR ---
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 98.5 HR 106 RR 20 B/P 122/60 3L NC WBC 18.4 IS: BACTRIM IV ZOSYN IV MICAFUNGIN IV DIALNTIN IV IVF D5@ 75ML/HR MED/SURG STATUS
[2019-04-25] MEDS: Piperacillin/Tazobactam 3.375 GM in NS 110 ML IVPB SCH ×2 (14:14→21:53)
[2019-04-25] MEDS: SULFAMETHOXAZOLE IV SCH ×2 (15:52→23:50)
[2019-04-25] MEDS: TRIMETHOPRIM IV SCH ×2 (15:52→23:50)
[2019-04-25] MEDS: D5W IV SCH ×2 (15:52→23:50)
[2019-04-25 16:00] VITALS: BP 118/77
--- NOTE | 2019-04-25 19:08 | NUR ---
HAND-OFF: Report given to Alexandru MONTIEL RN.
--- NOTE | 2019-04-25 19:24 | NUR ---
NURSE NOTES: Received report from EDUAR Robledo. Patient with spontaneous eye opening but non verbal and does not tract the nurse. Breathing unlabored on 3L O2 via NC. No s/s of distress, discomfort, or pain at this time. IV noted on LFA running fluid as ordered. Garcia intact draining urine as ordered. Gtube in place running feeding as ordered. Patient on P200 mattress. Bed placed at the lowest with alarm, brake, and siderails up and padded for patient safety. Call light placed within reach. Will continue to monitor and provide care as ordered.
[2019-04-25 20:00] VITALS: BP 115/69
[2019-04-26] VITALS: BP 97/68
[2019-04-26 04:00] VITALS: BP 106/77
[2019-04-26] MEDS: Verapamil 80mg tab GT SCH ×3 (05:18→21:55)
[2019-04-26] MEDS: Piperacillin/Tazobactam 3.375 GM in NS 110 ML IVPB SCH ×3 (05:19→21:56)
[2019-04-26] MEDS: NovoLOG Insulin Flexpen SUBQ SCH ×3 (05:22→17:01)
--- NOTE | 2019-04-26 05:45 | NUR ---
NURSE NOTES: Provided sponge bath. Dressing on sacral intact, dry, and clean. No BM. Gtube dressing changed. Garcia anchor secured to right tight. Will continue to monitor and provide care as ordered.
[2019-04-26 06:35] LABS: HEMATOCRIT 33.1 % (42.0-52.0); HEMOGLOBIN 11.6 G/DL (14.2-18.0); MEAN CORPUSCULAR VOLUME 84 FL (80-99); PLATELET COUNT 438 K/UL (150-450); RED BLOOD COUNT 3.96 M/UL (4.70-6.10); RED CELL DISTRIBUTION WIDTH 18.3 % (11.6-14.8); WHITE BLOOD COUNT 17.3 K/UL (4.8-10.8)
[2019-04-26 07:05] LABS: ANION GAP 6 mmol/L (5-15); BLOOD UREA NITROGEN 12 mg/dL (7-18); CALCIUM 8.9 MG/DL (8.5-10.1); CARBON DIOXIDE 29 MMOL/L (21-32); CHLORIDE 100 MMOL/L (98-107); CREATININE 0.7 MG/DL (0.55-1.30); POTASSIUM 4.3 MMOL/L (3.5-5.1); SODIUM 135 MMOL/L (136-145)
--- NOTE | 2019-04-26 07:30 | NUR ---
NURSE NOTES: Received pt from MINSU RN. Pt is nonverbal and sleeping. pt has NC 3LMP. Pt has g tube in place is running well. pt has Garcia cath in place is working well. pt has intact iv access LFA 22G is running well. all needs attended, bed is locked and is in the lowest position, call light within easy reach. will continue to monitor.
--- NOTE | 2019-04-26 07:46 | NUR ---
HAND-OFF: Report given to EDUAR Frazier.
[2019-04-26 08:00] VITALS: BP 94/67
[2019-04-26] MEDS: SULFAMETHOXAZOLE IV SCH ×2 (08:41→16:59)
[2019-04-26] MEDS: D5W IV SCH ×2 (08:41→16:59)
[2019-04-26] MEDS: TRIMETHOPRIM IV SCH ×2 (08:41→16:59)
[2019-04-26] MEDS: NS IV SCH (09:23)
[2019-04-26] MEDS: PHENYTOIN IV SCH (09:23)
[2019-04-26] MEDS: Donepezil 10mg tab GT SCH (09:23)
[2019-04-26] MEDS: Multivitamins W/Minerals 15 ML UDC GT SCH (09:23)
[2019-04-26] MEDS: Lactobacillus-GG tablet GT SCH (09:23)
[2019-04-26] MEDS: Morphine Sulfate 4mg/ml Inj (IV USE ONLY) IVP PRN (09:24)
[2019-04-26] MEDS: Heparin 5000 units/ml inj SUBQ SCH ×2 (09:26→20:28)
--- NOTE | 2019-04-26 09:45 | Pulmonology Progress Note ---
Assessment/Plan Assessment/Plan Sepsis w fungemia Pneumonia Cavitary lung disease Seizure disorder Dysphagia ,feeding by G-tube Chronic tachycardia Cerebellar ataxia Alzheimer dementia IVF O2 HHN prn abx per ID recs, added micafungin for fungemia DVT and GI prophylaxis strict aspiration precaution, G-tube feeding prognosis poor Subjective ROS Limited/Unobtainable: Yes Allergies: Coded Allergies: No Known Allergies (Unverified , 04/11/19) Objective Last 24 Hour Vital Signs Date Time Temp Pulse Resp B/P (MAP) Pulse Ox O2 Delivery O2 Flow Rate FiO2 04/26/19 08:00 99.3 95 19 94/67 (76) 99 04/26/19 05:18 103 121/82 04/26/19 04:00 98.9 100 22 106/77 (87) 99 04/26/19 00:00 98.0 97 20 97/68 (78) 97 04/25/19 21:52 110 122/83 04/25/19 21:00 Nasal Cannula 3.0 04/25/19 20:00 98.1 109 19 115/69 (84) 99 04/25/19 16:00 98.6 100 20 118/77 (91) 98 04/25/19 13:59 106 122/80 04/25/19 13:45 Nasal Cannula 3.0 04/25/19 12:00 98.5 106 20 122/80 (94) 98 Intake and Output 04/25/19 04/26/19 19:00 07:00 Intake Total 2452.000 ml 2059.500 ml Output Total 1750 ml Balance 2452.000 ml 309.500 ml Free Water 230 ml 100 ml IV Total 1562.000 ml 1299.500 ml Tube Feeding 660 ml 660 ml Output Urine Total 1750 ml # Bowel Movements 1 Objective awake, some eye contact General Appearance: WD/WN HEENT: atraumatic Respiratory/Chest: rhonchi Cardiovascular: normal rate Laboratory Tests 04/26/19 04:37: White Blood Count 17.3H, Red Blood Count 3.96L, Hemoglobin 11.6L, Hematocrit 33.1L, Mean Corpuscular Volume 84, Mean Corpuscular Hemoglobin 29.3, Mean Corpuscular Hemoglobin Concent 35.1, Red Cell Distribution Width 18.3H, Platelet Count 438, Mean Platelet Volume 7.0, Neutrophils (%) (Auto) , Lymphocytes (%) (Auto) , Monocytes (%) (Auto) , Eosinophils (%) (Auto) , Basophils (%) (Auto) , Differential Total Cells Counted 100, Neutrophils % ( Manual) 67, Lymphocytes % (Manual) 20, Monocytes % (Manual) 7, Eosinophils % ( Manual) 6H, Basophils % (Manual) 0, Band Neutrophils 0, Platelet Estimate Adequate, Platelet Morphology Normal, Hypochromasia 1+, Anisocytosis 1+, Sodium Level 135L, Potassium Level 4.3, Chloride Level 100, Carbon Dioxide Level 29, Anion Gap 6, Blood Urea Nitrogen 12, Creatinine 0.7, Estimat Glomerular Filtration Rate > 60, Glucose Level 99, Calcium Level 8.9 Current Medications Medications (Trade) Dose Ordered Sig/Kory Route PRN Reason Start Time Stop Time Status Last Admin Dose Admin Acetaminophen (Tylenol) 650 mg Q6H PRN GT Mild Pain/Temp > 100.5 04/16/19 17:30 05/11/19 17:29 04/23/19 05:25 Dextrose 1,000 ml @ 75 mls/hr [id number] IV 04/16/19 17:15 05/13/19 11:59 04/26/19 03:13 Dextrose (Dextrose 50%) 25 ml Q30M PRN IV Hypoglycemia 04/16/19 17:30 05/13/19 16:29 Dextrose (Dextrose 50%) 50 ml Q30M PRN IV Hypoglycemia 04/16/19 17:30 05/13/19 16:29 Donepezil HCl (Aricept) 10 mg DAILY GT 04/17/19 09:00 05/12/19 08:59 04/26/19 09:23 Heparin Sodium (Porcine) (Heparin 5000 units/ml) 5,000 units EVERY 12 HOURS SUBQ 04/16/19 21:00 05/12/19 10:59 04/26/19 09:26 Insulin Aspart (NovoLOG) Q6HR SUBQ 04/16/19 18:00 05/13/19 17:59 04/26/19 05:22 Lactobacillus Acidophilus (Culturelle) 1 tab DAILY GT 04/17/19 09:00 05/12/19 08:59 04/26/19 09:23 Lansoprazole (Prevacid) 30 mg DAILY GT 04/17/19 09:00 05/12/19 08:59 04/26/19 09:23 Lorazepam (Ativan 2mg/ml 1ml) 1 mg Q4H PRN IV For Anxiety 04/20/19 10:30 04/27/19 10:29 04/25/19 11:59 Micafungin Sodium 100 mg/Sodium Chloride 110 ml @ 110 mls/hr Q24H IVPB 04/24/19 12:00 05/01/19 11:59 04/25/19 11:58 Morphine Sulfate (Morphine Sulfate) 4 mg Q4H PRN IVP For Pain 04/23/19 15:30 04/30/19 15:29 04/26/19 09:24 Multivitamins (Multivitamins W/ Minerals 15ml Liquid) 15 ml DAILY GT 04/17/19 09:00 05/12/19 08:59 04/26/19 09:23 Ondansetron HCl (Zofran) 4 mg Q6H PRN GT Nausea & Vomiting 04/16/19 17:30 05/12/19 17:29 Phenytoin 300 mg/ Sodium Chloride 55 ml @ 110 mls/hr DAILY IV 04/17/19 09:00 05/17/19 08:59 04/26/19 09:23 Piperacillin Sod/ Tazobactam Sod 3.375 gm/Sodium Chloride 110 ml @ 27.5 mls/hr EVERY 8 HOURS IVPB 04/25/19 14:00 04/30/19 13:59 04/26/19 05:19 Primidone (Mysoline) 100 mg QHS GT 04/16/19 21:00 05/12/19 20:59 04/25/19 21:50 Trimethoprim/ Sulfamethoxazole 12 ml/Dextrose 562 ml @ 374.667 mls/hr [id number] BACTRIM IV 04/25/19 16:00 05/02/19 15:59 04/26/19 08:41 Verapamil HCl (Calan) 80 mg EVERY 8 HOURS GT 04/18/19 14:45 05/16/19 14:44 04/26/19 05:18 Toby Bridges MD Apr 26, 2019 09:45
--- NOTE | 2019-04-26 11:54 | General Progress Note ---
Assessment/Plan Problem List: (1) Pneumonia ICD Codes: J18.9 - Pneumonia, unspecified organism SNOMED: 389112569 (2) Sickle cell anemia ICD Codes: D57.1 - Sickle-cell disease without crisis SNOMED: 845260767 (3) Sepsis ICD Codes: A41.9 - Sepsis, unspecified organism SNOMED: 05240337 Status: unchanged Assessment/Plan: pt diet abx psyc neuro eval cbc bmp am Subjective Constitutional: Reports: weakness Allergies: Coded Allergies: No Known Allergies (Unverified , 04/11/19) All Systems: reviewed and negative except above Subjective o2nc sleepy calm Objective Last 24 Hour Vital Signs Date Time Temp Pulse Resp B/P (MAP) Pulse Ox O2 Delivery O2 Flow Rate FiO2 04/26/19 09:54 99.3 04/26/19 08:00 99.3 95 19 94/67 (76) 99 04/26/19 05:18 103 121/82 04/26/19 04:00 98.9 100 22 106/77 (87) 99 04/26/19 00:00 98.0 97 20 97/68 (78) 97 04/25/19 21:52 110 122/83 04/25/19 21:00 Nasal Cannula 3.0 04/25/19 20:00 98.1 109 19 115/69 (84) 99 04/25/19 16:00 98.6 100 20 118/77 (91) 98 04/25/19 13:59 106 122/80 04/25/19 13:45 Nasal Cannula 3.0 04/25/19 12:00 98.5 106 20 122/80 (94) 98 Intake and Output 04/25/19 04/26/19 19:00 07:00 Intake Total 2452.000 ml 2059.500 ml Output Total 1750 ml Balance 2452.000 ml 309.500 ml Free Water 230 ml 100 ml IV Total 1562.000 ml 1299.500 ml Tube Feeding 660 ml 660 ml Output Urine Total 1750 ml # Bowel Movements 1 Laboratory Tests 04/26/19 04:37: White Blood Count 17.3H, Red Blood Count 3.96L, Hemoglobin 11.6L, Hematocrit 33.1L, Mean Corpuscular Volume 84, Mean Corpuscular Hemoglobin 29.3, Mean Corpuscular Hemoglobin Concent 35.1, Red Cell Distribution Width 18.3H, Platelet Count 438, Mean Platelet Volume 7.0, Neutrophils (%) (Auto) , Lymphocytes (%) (Auto) , Monocytes (%) (Auto) , Eosinophils (%) (Auto) , Basophils (%) (Auto) , Differential Total Cells Counted 100, Neutrophils % ( Manual) 67, Lymphocytes % (Manual) 20, Monocytes % (Manual) 7, Eosinophils % ( Manual) 6H, Basophils % (Manual) 0, Band Neutrophils 0, Platelet Estimate Adequate, Platelet Morphology Normal, Hypochromasia 1+, Anisocytosis 1+, Sodium Level 135L, Potassium Level 4.3, Chloride Level 100, Carbon Dioxide Level 29, Anion Gap 6, Blood Urea Nitrogen 12, Creatinine 0.7, Estimat Glomerular Filtration Rate > 60, Glucose Level 99, Calcium Level 8.9 Height (Feet): 5 Height (Inches): 7.00 Weight (Pounds): 126 General Appearance: lethargic EENT: normal ENT inspection Neck: normal alignment Cardiovascular: normal peripheral pulses, normal rate, regular rhythm Respiratory/Chest: chest wall non-tender, lungs clear, normal breath sounds Abdomen: normal bowel sounds, non tender, soft Extremities: normal inspection Edema: no edema noted Arm (L), no edema noted Arm (R), no edema noted Leg (L), no edema noted Leg (R), no edema noted Pedal (L), no edema noted Pedal (R), no edema noted Generalized Neurologic: motor weakness Skin: normal pigmentation, warm/dry Marito Ortega DO Apr 26, 2019 11:54
[2019-04-26 12:00] VITALS: BP 106/75
[2019-04-26] MEDS: Micafungin 100 MG in NS 110 ML IVPB SCH (12:44)
[2019-04-26] MEDS: LORazepam Inj 2mg/ml 1ml IV PRN (12:44)
[2019-04-26 16:00] VITALS: BP 122/89
[2019-04-26] MEDS ORDERED: NS 275ml ONE (16:23)
[2019-04-26] MEDS ORDERED: Sterile Water Irrig 1000ml IRRIG ONE (16:23)
--- NOTE | 2019-04-26 19:25 | NUR ---
HAND-OFF: Report given to RITO WITT. Pt is awake and stable.
--- NOTE | 2019-04-26 19:35 | NUR ---
NURSE NOTES: Received patient in bed. Patient is non-verbal. On 3 lpm NC and no respiratory distress noted at this time. No signs of pain noted. Side rails padded. GT patent and running at 60 mL/hr, dressing dry and intact. Garcia catheter in place and draining yellow urine. IV in right forearm in place and noted with no redness or swelling. Patient is on B200 mattress.
[2019-04-26 20:00] VITALS: BP 128/85
[2019-04-27] VITALS: BP 133/90
[2019-04-27] MEDS: SULFAMETHOXAZOLE IV SCH ×3 (01:16→16:04)
[2019-04-27] MEDS: TRIMETHOPRIM IV SCH ×3 (01:16→16:04)
[2019-04-27] MEDS: D5W IV SCH ×3 (01:16→16:04)
[2019-04-27 04:00] VITALS: BP 130/94
[2019-04-27 04:29] LABS: HEMATOCRIT 33.4 % (42.0-52.0); MEAN CORPUSCULAR VOLUME 82 FL (80-99); PLATELET COUNT 545 K/UL (150-450); RED BLOOD COUNT 4.09 M/UL (4.70-6.10); RED CELL DISTRIBUTION WIDTH 18.7 % (11.6-14.8); WHITE BLOOD COUNT 19.6 K/UL (4.8-10.8)
[2019-04-27 04:43] LABS: ANION GAP 6 mmol/L (5-15); BLOOD UREA NITROGEN 11 mg/dL (7-18); CALCIUM 9.3 MG/DL (8.5-10.1); CARBON DIOXIDE 28 MMOL/L (21-32); CHLORIDE 100 MMOL/L (98-107); CREATININE 0.7 MG/DL (0.55-1.30); POTASSIUM 4.3 MMOL/L (3.5-5.1); SODIUM 134 MMOL/L (136-145)
[2019-04-27] MEDS: NovoLOG Insulin Flexpen SUBQ SCH ×4 (05:09→18:02)
[2019-04-27] MEDS: Morphine Sulfate 4mg/ml Inj (IV USE ONLY) IVP PRN (05:10)
[2019-04-27] MEDS: Piperacillin/Tazobactam 3.375 GM in NS 110 ML IVPB SCH ×3 (05:11→21:40)
[2019-04-27] MEDS: Verapamil 80mg tab GT SCH ×3 (05:11→21:40)
--- NOTE | 2019-04-27 06:51 | NUR ---
NURSE NOTES: Message left with Dr. Soni's office for blood culture result of yeast.
--- NOTE | 2019-04-27 07:43 | NUR ---
HAND-OFF: Report given to Freddie Ocampo and Flaco OCAMPO.
--- NOTE | 2019-04-27 07:44 | NUR ---
NURSE NOTES: Report received from Ramon WITT. Patient non verbal, currently asleep. Nasal canula on, oxygen 3 liters, does not appear to be in respiratory distress. Garcia in place, draining clear yellow urine. G tube in place and patent. Jevity 1.2 running at 60 cc/hr. IVs noted in right and left ac. Both 22 micaela and patent. Bed locked, lowest position, and alarmed. Will continue to follow plan of care.
--- NOTE | 2019-04-27 07:45 | Progress Note ---
DATE: 04/27/2019 SUBJECTIVE: This is a 43-year-old male patient with sepsis, still has some confusion, some disorganized thought process, and decline in cognition below his baseline. That is why, he does require oral inpatient treatment at this time and he is . MENTAL STATUS EXAMINATION: This is a 43-year-old male. Appearance is disheveled. Attitude, irritable and agitated. Affect, guarded and restricted. Intellect poor. Mood, depressed and anxious. Motor activity, psychomotor agitation. Attention span is poor. Orientation x2. Speech is pressured. Thought process, disorganized and illogical. Insight and judgment is poor. DIAGNOSIS: Paranoid schizophrenia with acute exacerbation. PLAN: Continue titrating up on his medications. Provide him with 20 minutes of behavioral management. Chart reviewed. Discussed with staff. Seen and assessed in his room. Osbaldo Bird M.D. DR: PADMINI JOB#: [id number] CC:
[2019-04-27 08:00] VITALS: BP 107/75
[2019-04-27] MEDS: Donepezil 10mg tab GT SCH (08:07)
[2019-04-27] MEDS: Lactobacillus-GG tablet GT SCH (08:08)
[2019-04-27] MEDS: Multivitamins W/Minerals 15 ML UDC GT SCH (08:08)
[2019-04-27] MEDS: Heparin 5000 units/ml inj SUBQ SCH ×2 (08:10→20:14)
[2019-04-27] MEDS: NS IV SCH (08:22)
[2019-04-27] MEDS: PHENYTOIN IV SCH (08:22)
--- NOTE | 2019-04-27 09:32 | Consultation ---
History of Present Illness General Date patient seen: Apr 27, 2019 Chief Complaint: Present Illness Allergies: Coded Allergies: No Known Allergies (Unverified , 04/11/19) Medication History Scheduled Donepezil Hcl* (Donepezil Hcl*), 10 MG GT DAILY, (Reported) Lactobacillus Combo No.11 (Probiotic), 1 EACH GT DAILY, (Reported) Multivitamin Liquid* (Multi-Delyn*), 5 ML GT DAILY, (Reported) Pantoprazole Sodium (Protonix), 40 MG GT DAILY, (Reported) Primidone (Mysoline), 100 MG GT QHS, (Reported) Verapamil Hcl (Verapamil Hcl), 20 MG GT TID, (Reported) Scheduled PRN Ondansetron (Zofran), 4 MG GT Q6H PRN for Nausea & Vomiting, (Reported) Patient History Healthcare decision maker Resuscitation status Advanced Directive on File Physical Exam Last 24 Hour Vital Signs Date Time Temp Pulse Resp B/P (MAP) Pulse Ox O2 Delivery O2 Flow Rate FiO2 04/27/19 05:11 100 130/94 04/27/19 04:00 98.3 100 18 130/94 (106) 98 04/27/19 00:00 97.3 105 18 133/90 (104) 100 04/26/19 21:55 106 128/85 04/26/19 21:00 Nasal Cannula 3.0 04/26/19 20:00 97.0 106 19 128/85 (99) 99 04/26/19 16:00 98.9 100 19 122/89 (100) 99 04/26/19 14:42 100 106/75 04/26/19 12:00 97.9 100 19 106/75 (85) 97 04/26/19 09:54 99.3 Intake and Output 04/26/19 04/27/19 19:00 07:00 Intake Total 3224.001 ml 1432 ml Output Total 1800 ml Balance 1424.001 ml 1432 ml Free Water 300 ml 100 ml IV Total 2204.001 ml 672 ml Tube Feeding 720 ml 660 ml Output Urine Total 1800 ml Laboratory Tests Test 04/27/19 04:02 White Blood Count 19.6 K/UL (4.8-10.8) H Red Blood Count 4.09 M/UL (4.70-6.10) L Hemoglobin 12.0 G/DL (14.2-18.0) L Hematocrit 33.4 % (42.0-52.0) L Mean Corpuscular Volume 82 FL (80-99) Mean Corpuscular Hemoglobin 29.4 PG (27.0-31.0) Mean Corpuscular Hemoglobin Concent 36.0 G/DL (32.0-36.0) Red Cell Distribution Width 18.7 % (11.6-14.8) H Platelet Count 545 K/UL (150-450) H Mean Platelet Volume 7.1 FL (6.5-10.1) Neutrophils (%) (Auto) % (45.0-75.0) Lymphocytes (%) (Auto) % (20.0-45.0) Monocytes (%) (Auto) % (1.0-10.0) Eosinophils (%) (Auto) % (0.0-3.0) Basophils (%) (Auto) % (0.0-2.0) Neutrophils % (Manual) Pending Lymphocytes % (Manual) Pending Platelet Estimate Pending Platelet Morphology Pending Sodium Level 134 MMOL/L (136-145) L Potassium Level 4.3 MMOL/L (3.5-5.1) Chloride Level 100 MMOL/L (98-107) Carbon Dioxide Level 28 MMOL/L (21-32) Anion Gap 6 mmol/L (5-15) Blood Urea Nitrogen 11 mg/dL (7-18) Creatinine 0.7 MG/DL (0.55-1.30) Estimat Glomerular Filtration Rate > 60 mL/min (>60) Glucose Level 117 MG/DL (74-106) H Calcium Level 9.3 MG/DL (8.5-10.1) Height (Feet): 5 Height (Inches): 7.00 Weight (Pounds): 126 Medications Current Medications Medications (Trade) Dose Ordered Sig/Kory Route PRN Reason Start Time Stop Time Status Last Admin Dose Admin Acetaminophen (Tylenol) 650 mg Q6H PRN GT Mild Pain/Temp > 100.5 04/16/19 17:30 05/11/19 17:29 04/23/19 05:25 Dextrose (Dextrose 50%) 25 ml Q30M PRN IV Hypoglycemia 04/16/19 17:30 05/13/19 16:29 Dextrose (Dextrose 50%) 50 ml Q30M PRN IV Hypoglycemia 04/16/19 17:30 05/13/19 16:29 Donepezil HCl (Aricept) 10 mg DAILY GT 04/17/19 09:00 05/12/19 08:59 04/27/19 08:07 Heparin Sodium (Porcine) (Heparin 5000 units/ml) 5,000 units EVERY 12 HOURS SUBQ 04/16/19 21:00 05/12/19 10:59 04/27/19 08:10 Insulin Aspart (NovoLOG) Q6HR SUBQ 04/16/19 18:00 05/13/19 17:59 04/27/19 05:09 Lactobacillus Acidophilus (Culturelle) 1 tab DAILY GT 04/17/19 09:00 05/12/19 08:59 04/27/19 08:08 Lansoprazole (Prevacid) 30 mg DAILY GT 04/17/19 09:00 05/12/19 08:59 04/27/19 08:08 Lorazepam (Ativan 2mg/ml 1ml) 1 mg Q4H PRN IV For Anxiety 04/20/19 10:30 04/27/19 10:29 04/26/19 12:44 Micafungin Sodium 100 mg/Sodium Chloride 110 ml @ 110 mls/hr Q24H IVPB 04/24/19 12:00 05/01/19 11:59 04/26/19 12:44 Morphine Sulfate (Morphine Sulfate) 4 mg Q4H PRN IVP For Pain 04/23/19 15:30 04/30/19 15:29 04/27/19 05:10 Multivitamins (Multivitamins W/ Minerals 15ml Liquid) 15 ml DAILY GT 04/17/19 09:00 05/12/19 08:59 04/27/19 08:08 Ondansetron HCl (Zofran) 4 mg Q6H PRN GT Nausea & Vomiting 04/16/19 17:30 05/12/19 17:29 Phenytoin 300 mg/ Sodium Chloride 55 ml @ 110 mls/hr DAILY IV 04/17/19 09:00 05/17/19 08:59 04/27/19 08:22 Piperacillin Sod/ Tazobactam Sod 3.375 gm/Sodium Chloride 110 ml @ 27.5 mls/hr EVERY 8 HOURS IVPB 04/25/19 14:00 04/30/19 13:59 04/27/19 05:11 Primidone (Mysoline) 100 mg QHS GT 04/16/19 21:00 05/12/19 20:59 04/26/19 20:20 Trimethoprim/ Sulfamethoxazole 12 ml/Dextrose 562 ml @ 374.667 mls/hr [id number] BACTRIM IV 04/25/19 16:00 05/02/19 15:59 04/27/19 08:22 Verapamil HCl (Calan) 80 mg EVERY 8 HOURS GT 04/18/19 14:45 05/16/19 14:44 04/27/19 05:11 Assessment/Plan Assessment/Plan: (1) Sacral decubitus ulcer (2) Dementia (3) Encephalopathy (4) Sepsis (5) Cerebral Ataxia (6) Sickle cell disease seen dictated Henrry Allison Apr 27, 2019 09:32
[2019-04-27] MEDS: LORazepam Inj 2mg/ml 1ml IV PRN (10:14)
--- NOTE | 2019-04-27 10:22 | Infectious Diseases Prog Note ---
Assessment/Plan Assessment/Plan Assessment: Sepsis Fungemia Blood Cx 04/22/19 - C. alb Blood Cx 04/25/19 2/2 Yeast PNA - 04/22/19 Sp Cx P.a. and acenetobacter -04/16 CXR: Left greater than right bibasilar opacities may represent atelectasis versus pneumonia. Findings are decreased compared to prior exam. -CXR: Left basilar atelectasis and possible consolidation -sp cx PsA (ramirez S) -influenza sc neg -u/a neg Fever; SP Leukocytosis; decreasing Gram positive bacteremia- contaminant -04/11 Bcx / CONS; 04/12 Bcx NTD HTN dysphagia s/p GT cerebellar ataxia seizure disorder Alzheimer's dementia SNF resident Plan: - Repeat Blood Cx - Continue Micafungin #1 - Start Zosyn and Bactrim - get TTE to R/O IE If Neg will need GAGAN given persistent fungemia - 04/24 SP Meropenem #3 and Vancomycin #3 - 04/22/19 SP Zosyn #3 -04/19 SP Cefepime #9 for PsA PNA -04/18 SP Azithromycin #7/7 -04/16 SP IV Vancomycin #6 -04/11 SP Ceftriaxone x1 -Monitor CBC/CMP, temperatures -GT care -aspiration precautions -CBC, CMP am -Cdiff if diarrhea Thank you for consulting [facility]. Will continue to follow along with you. Subjective Allergies: Coded Allergies: No Known Allergies (Unverified , 04/11/19) Subjective Afebrile so far today Leukocytosis of 20 Fungemia persistent Pt on NC 3L Objective Vital Signs Last 24 Hour Vital Signs Date Time Temp Pulse Resp B/P (MAP) Pulse Ox O2 Delivery O2 Flow Rate FiO2 04/27/19 09:00 Nasal Cannula 3.0 04/27/19 08:00 98.3 92 20 107/75 (86) 98 04/27/19 05:11 100 130/94 04/27/19 04:00 98.3 100 18 130/94 (106) 98 04/27/19 00:00 97.3 105 18 133/90 (104) 100 04/26/19 21:55 106 128/85 04/26/19 21:00 Nasal Cannula 3.0 04/26/19 20:00 97.0 106 19 128/85 (99) 99 04/26/19 16:00 98.9 100 19 122/89 (100) 99 04/26/19 14:42 100 106/75 04/26/19 12:00 97.9 100 19 106/75 (85) 97 Height (Feet): 5 Height (Inches): 7.00 Weight (Pounds): 126 Objective GENERAL: NAD awake CARDIOVASCULAR: RRR, S1,S2 LUNGS: Coarse B/L ABDOMEN: Bowel sounds distant. Microbiology Date/Time Source Procedure Growth Status 04/25/19 12:10 Blood Blood Culture - Preliminary Yeast Species Resulted 04/25/19 12:00 Blood Blood Culture - Preliminary Yeast Species Resulted Laboratory Tests Test 04/27/19 04:02 White Blood Count 19.6 K/UL (4.8-10.8) H Red Blood Count 4.09 M/UL (4.70-6.10) L Hemoglobin 12.0 G/DL (14.2-18.0) L Hematocrit 33.4 % (42.0-52.0) L Mean Corpuscular Volume 82 FL (80-99) Mean Corpuscular Hemoglobin 29.4 PG (27.0-31.0) Mean Corpuscular Hemoglobin Concent 36.0 G/DL (32.0-36.0) Red Cell Distribution Width 18.7 % (11.6-14.8) H Platelet Count 545 K/UL (150-450) H Mean Platelet Volume 7.1 FL (6.5-10.1) Neutrophils (%) (Auto) % (45.0-75.0) Lymphocytes (%) (Auto) % (20.0-45.0) Monocytes (%) (Auto) % (1.0-10.0) Eosinophils (%) (Auto) % (0.0-3.0) Basophils (%) (Auto) % (0.0-2.0) Neutrophils % (Manual) Pending Lymphocytes % (Manual) Pending Platelet Estimate Pending Platelet Morphology Pending Sodium Level 134 MMOL/L (136-145) L Potassium Level 4.3 MMOL/L (3.5-5.1) Chloride Level 100 MMOL/L (98-107) Carbon Dioxide Level 28 MMOL/L (21-32) Anion Gap 6 mmol/L (5-15) Blood Urea Nitrogen 11 mg/dL (7-18) Creatinine 0.7 MG/DL (0.55-1.30) Estimat Glomerular Filtration Rate > 60 mL/min (>60) Glucose Level 117 MG/DL (74-106) H Calcium Level 9.3 MG/DL (8.5-10.1) Current Medications Medications (Trade) Dose Ordered Sig/Kory Route PRN Reason Start Time Stop Time Status Last Admin Dose Admin Acetaminophen (Tylenol) 650 mg Q6H PRN GT Mild Pain/Temp > 100.5 04/16/19 17:30 05/11/19 17:29 04/23/19 05:25 Dextrose (Dextrose 50%) 25 ml Q30M PRN IV Hypoglycemia 04/16/19 17:30 05/13/19 16:29 Dextrose (Dextrose 50%) 50 ml Q30M PRN IV Hypoglycemia 04/16/19 17:30 05/13/19 16:29 Donepezil HCl (Aricept) 10 mg DAILY GT 04/17/19 09:00 05/12/19 08:59 04/27/19 08:07 Heparin Sodium (Porcine) (Heparin 5000 units/ml) 5,000 units EVERY 12 HOURS SUBQ 04/16/19 21:00 05/12/19 10:59 04/27/19 08:10 Insulin Aspart (NovoLOG) Q6HR SUBQ 04/16/19 18:00 05/13/19 17:59 04/27/19 05:09 Lactobacillus Acidophilus (Culturelle) 1 tab DAILY GT 04/17/19 09:00 05/12/19 08:59 04/27/19 08:08 Lansoprazole (Prevacid) 30 mg DAILY GT 04/17/19 09:00 05/12/19 08:59 04/27/19 08:08 Lorazepam (Ativan 2mg/ml 1ml) 1 mg Q4H PRN IV For Anxiety 04/20/19 10:30 04/27/19 10:29 04/27/19 10:14 Micafungin Sodium 100 mg/Sodium Chloride 110 ml @ 110 mls/hr Q24H IVPB 04/24/19 12:00 05/01/19 11:59 04/26/19 12:44 Morphine Sulfate (Morphine Sulfate) 4 mg Q4H PRN IVP For Pain 04/23/19 15:30 04/30/19 15:29 04/27/19 05:10 Multivitamins (Multivitamins W/ Minerals 15ml Liquid) 15 ml DAILY GT 04/17/19 09:00 05/12/19 08:59 04/27/19 08:08 Ondansetron HCl (Zofran) 4 mg Q6H PRN GT Nausea & Vomiting 04/16/19 17:30 05/12/19 17:29 Phenytoin 300 mg/ Sodium Chloride 55 ml @ 110 mls/hr DAILY IV 04/17/19 09:00 05/17/19 08:59 04/27/19 08:22 Piperacillin Sod/ Tazobactam Sod 3.375 gm/Sodium Chloride 110 ml @ 27.5 mls/hr EVERY 8 HOURS IVPB 04/25/19 14:00 04/30/19 13:59 04/27/19 05:11 Primidone (Mysoline) 100 mg QHS GT 04/16/19 21:00 05/12/19 20:59 04/26/19 20:20 Trimethoprim/ Sulfamethoxazole 12 ml/Dextrose 562 ml @ 374.667 mls/hr [id number] BACTRIM IV 04/25/19 16:00 05/02/19 15:59 04/27/19 08:22 Verapamil HCl (Calan) 80 mg EVERY 8 HOURS GT 04/18/19 14:45 05/16/19 14:44 04/27/19 05:11 Rayshawn Soni MD Apr 27, 2019 10:22
[2019-04-27 12:00] VITALS: BP 96/66
[2019-04-27] MEDS: Micafungin 100 MG in NS 110 ML IVPB SCH (12:08)
--- NOTE | 2019-04-27 12:43 | Diagnostic Imaging Report ---
Indication: Shortness of breath Technique: XRAY Chest 1v Comparison: 04/24/2019 Findings: Heart size and mediastinal contours are stable. Again there is elevation of the left hemidiaphragm with adjacent streaky opacities at the left lung base which may be related to compressive atelectasis or scarring. Pneumonia is no excluded and correlation with clinical findings is recommended. No new focal consolidation is identified. No radiographically appreciable pleural effusion or pneumothorax. Osseous structures are stable. Impression: No significant interval change in the radiographic appearance the chest compared to the prior exam. Findings as above.
--- NOTE | 2019-04-27 13:26 | General Progress Note ---
Assessment/Plan Problem List: (1) Sickle cell anemia ICD Codes: D57.1 - Sickle-cell disease without crisis SNOMED: 392696524 (2) Sepsis ICD Codes: A41.9 - Sepsis, unspecified organism SNOMED: 79465909 (3) Epilepsy ICD Codes: G40.909 - Epilepsy, unspecified, not intractable, without status epilepticus SNOMED: 79065581 (4) Cavitary lung disease ICD Codes: J98.4 - Other disorders of lung SNOMED: 713733076 (5) KX-Bplupgv-Nkaude disease (6) Nosocomial pneumonia ICD Codes: J18.9 - Pneumonia, unspecified organism; Y95 - Nosocomial condition SNOMED: 711804924 Status: progressing, unchanged Assessment/Plan: sepsis pna anemia abx per id afebrile improving reviewed chart and labs Subjective ROS Limited/Unobtainable: Yes Allergies: Coded Allergies: No Known Allergies (Unverified , 04/11/19) Objective Last 24 Hour Vital Signs Date Time Temp Pulse Resp B/P (MAP) Pulse Ox O2 Delivery O2 Flow Rate FiO2 04/27/19 12:00 98.7 97 21 96/66 (76) 96 04/27/19 09:00 Nasal Cannula 3.0 04/27/19 08:00 98.3 92 20 107/75 (86) 98 04/27/19 05:11 100 130/94 04/27/19 04:00 98.3 100 18 130/94 (106) 98 04/27/19 00:00 97.3 105 18 133/90 (104) 100 04/26/19 21:55 106 128/85 04/26/19 21:00 Nasal Cannula 3.0 04/26/19 20:00 97.0 106 19 128/85 (99) 99 04/26/19 16:00 98.9 100 19 122/89 (100) 99 04/26/19 14:42 100 106/75 Intake and Output 04/26/19 04/27/19 19:00 07:00 Intake Total 3224.001 ml 1432 ml Output Total 1800 ml Balance 1424.001 ml 1432 ml Free Water 300 ml 100 ml IV Total 2204.001 ml 672 ml Tube Feeding 720 ml 660 ml Output Urine Total 1800 ml Laboratory Tests 04/27/19 04:02: White Blood Count 19.6H, Red Blood Count 4.09L, Hemoglobin 12.0L, Hematocrit 33.4L, Mean Corpuscular Volume 82, Mean Corpuscular Hemoglobin 29.4, Mean Corpuscular Hemoglobin Concent 36.0, Red Cell Distribution Width 18.7H, Platelet Count 545H, Mean Platelet Volume 7.1, Neutrophils (%) (Auto) , Lymphocytes (%) (Auto) , Monocytes (%) (Auto) , Eosinophils (%) (Auto) , Basophils (%) (Auto) , Differential Total Cells Counted 100, Neutrophils % ( Manual) 64, Lymphocytes % (Manual) 23, Monocytes % (Manual) 9, Eosinophils % ( Manual) 3, Basophils % (Manual) 1, Band Neutrophils 0, Nucleated Red Blood Cells 3, Platelet Estimate Adequate, Platelet Morphology Normal, Anisocytosis 2+ , Sodium Level 134L, Potassium Level 4.3, Chloride Level 100, Carbon Dioxide Level 28, Anion Gap 6, Blood Urea Nitrogen 11, Creatinine 0.7, Estimat Glomerular Filtration Rate > 60, Glucose Level 117H, Calcium Level 9.3 Height (Feet): 5 Height (Inches): 7.00 Weight (Pounds): 126 Cardiovascular: regular rhythm Respiratory/Chest: lungs clear Kenn Pritchett MD Apr 27, 2019 13:26
--- NOTE | 2019-04-27 14:00 | NUR ---
NURSE NOTES: verapamil held due to blood pressure of 98/90 with a heart rate of 90. Will continue to monitor and follow plan of care.
--- NOTE | 2019-04-27 14:24 | Pulmonology Progress Note ---
Assessment/Plan Assessment/Plan Sepsis w fungemia Pneumonia Cavitary lung disease Seizure disorder Dysphagia ,feeding by G-tube Chronic tachycardia Cerebellar ataxia Alzheimer dementia persistent fungemia WBC still high O2 HHN prn abx per ID recs, continue micafungin for fungemia DVT and GI prophylaxis strict aspiration precaution, G-tube feeding prognosis poor Subjective ROS Limited/Unobtainable: Yes Allergies: Coded Allergies: No Known Allergies (Unverified , 04/11/19) Objective Last 24 Hour Vital Signs Date Time Temp Pulse Resp B/P (MAP) Pulse Ox O2 Delivery O2 Flow Rate FiO2 04/27/19 12:00 98.7 97 21 96/66 (76) 96 04/27/19 09:00 Nasal Cannula 3.0 04/27/19 08:00 98.3 92 20 107/75 (86) 98 04/27/19 05:11 100 130/94 04/27/19 04:00 98.3 100 18 130/94 (106) 98 04/27/19 00:00 97.3 105 18 133/90 (104) 100 04/26/19 21:55 106 128/85 04/26/19 21:00 Nasal Cannula 3.0 04/26/19 20:00 97.0 106 19 128/85 (99) 99 04/26/19 16:00 98.9 100 19 122/89 (100) 99 04/26/19 14:42 100 106/75 Intake and Output 04/26/19 04/27/19 19:00 07:00 Intake Total 3224.001 ml 1432 ml Output Total 1800 ml Balance 1424.001 ml 1432 ml Free Water 300 ml 100 ml IV Total 2204.001 ml 672 ml Tube Feeding 720 ml 660 ml Output Urine Total 1800 ml Objective awake, some eye contact General Appearance: cachetic HEENT: atraumatic Respiratory/Chest: respiratory distress - mild, accessory muscle use Cardiovascular: normal rate Microbiology Date/Time Source Procedure Growth Status 04/25/19 12:10 Blood Blood Culture - Preliminary Yeast Species Resulted 04/25/19 12:00 Blood Blood Culture - Preliminary Yeast Species Resulted Laboratory Tests 04/27/19 04:02: White Blood Count 19.6H, Red Blood Count 4.09L, Hemoglobin 12.0L, Hematocrit 33.4L, Mean Corpuscular Volume 82, Mean Corpuscular Hemoglobin 29.4, Mean Corpuscular Hemoglobin Concent 36.0, Red Cell Distribution Width 18.7H, Platelet Count 545H, Mean Platelet Volume 7.1, Neutrophils (%) (Auto) , Lymphocytes (%) (Auto) , Monocytes (%) (Auto) , Eosinophils (%) (Auto) , Basophils (%) (Auto) , Differential Total Cells Counted 100, Neutrophils % ( Manual) 64, Lymphocytes % (Manual) 23, Monocytes % (Manual) 9, Eosinophils % ( Manual) 3, Basophils % (Manual) 1, Band Neutrophils 0, Nucleated Red Blood Cells 3, Platelet Estimate Adequate, Platelet Morphology Normal, Anisocytosis 2+ , Sodium Level 134L, Potassium Level 4.3, Chloride Level 100, Carbon Dioxide Level 28, Anion Gap 6, Blood Urea Nitrogen 11, Creatinine 0.7, Estimat Glomerular Filtration Rate > 60, Glucose Level 117H, Calcium Level 9.3 Current Medications Medications (Trade) Dose Ordered Sig/Kory Route PRN Reason Start Time Stop Time Status Last Admin Dose Admin Acetaminophen (Tylenol) 650 mg Q6H PRN GT Mild Pain/Temp > 100.5 04/16/19 17:30 05/11/19 17:29 04/23/19 05:25 Dextrose (Dextrose 50%) 25 ml Q30M PRN IV Hypoglycemia 04/16/19 17:30 05/13/19 16:29 Dextrose (Dextrose 50%) 50 ml Q30M PRN IV Hypoglycemia 04/16/19 17:30 05/13/19 16:29 Donepezil HCl (Aricept) 10 mg DAILY GT 04/17/19 09:00 05/12/19 08:59 04/27/19 08:07 Heparin Sodium (Porcine) (Heparin 5000 units/ml) 5,000 units EVERY 12 HOURS SUBQ 04/16/19 21:00 05/12/19 10:59 04/27/19 08:10 Insulin Aspart (NovoLOG) Q6HR SUBQ 04/16/19 18:00 05/13/19 17:59 04/27/19 12:08 Lactobacillus Acidophilus (Culturelle) 1 tab DAILY GT 04/17/19 09:00 05/12/19 08:59 04/27/19 08:08 Lansoprazole (Prevacid) 30 mg DAILY GT 04/17/19 09:00 05/12/19 08:59 04/27/19 08:08 Micafungin Sodium 100 mg/Sodium Chloride 110 ml @ 110 mls/hr Q24H IVPB 04/24/19 12:00 05/01/19 11:59 04/27/19 12:08 Morphine Sulfate (Morphine Sulfate) 4 mg Q4H PRN IVP For Pain 04/23/19 15:30 04/30/19 15:29 04/27/19 05:10 Multivitamins (Multivitamins W/ Minerals 15ml Liquid) 15 ml DAILY GT 04/17/19 09:00 05/12/19 08:59 04/27/19 08:08 Ondansetron HCl (Zofran) 4 mg Q6H PRN GT Nausea & Vomiting 04/16/19 17:30 05/12/19 17:29 Phenytoin 300 mg/ Sodium Chloride 55 ml @ 110 mls/hr DAILY IV 04/17/19 09:00 05/17/19 08:59 04/27/19 08:22 Piperacillin Sod/ Tazobactam Sod 3.375 gm/Sodium Chloride 110 ml @ 27.5 mls/hr EVERY 8 HOURS IVPB 04/25/19 14:00 04/30/19 13:59 04/27/19 05:11 Primidone (Mysoline) 100 mg QHS GT 04/16/19 21:00 05/12/19 20:59 04/26/19 20:20 Trimethoprim/ Sulfamethoxazole 12 ml/Dextrose 562 ml @ 374.667 mls/hr [id number] BACTRIM IV 04/25/19 16:00 05/02/19 15:59 04/27/19 08:22 Verapamil HCl (Calan) 80 mg EVERY 8 HOURS GT 04/18/19 14:45 05/16/19 14:44 04/27/19 05:11 Toby Bridges MD Apr 27, 2019 14:24
[2019-04-27 16:00] VITALS: BP 107/73
--- NOTE | 2019-04-27 16:20 | NUR ---
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 98.7 HR 97 RR 21 B/P 96/66 3L NC WBC 19.6 NA 134 IS: BACTRIM IV ZOSYN IV MICAFUNGIN IV DILANTIN IV MED/SURG STATUS
--- NOTE | 2019-04-27 18:45 | Consultation ---
DATE OF CONSULTATION: 04/27/2019 PAIN MANAGEMENT CONSULTATION CONSULTING PHYSICIAN: Altagracia Palomino M.D. REFERRING PHYSICIAN: Marito Ortega D.O. PHYSICIAN MICA WASHER GLUER: Santiago Stevens CHIEF COMPLAINT: Body pain. HISTORY OF PRESENT ILLNESS: This is a 43-year-old male who is being seen on the Med/Surg floor of [facility] for initial pain management consultation. The patient had been admitted under the care of Dr. Ortega due to sepsis from [facility], found to have a metabolic encephalopathy being seen by Infectious Disease and neurologist as well as psychiatrist. The patient has an underlying issue with dementia as well as paranoid schizophrenia, history of sickle cell disease, and cerebral ataxia. He is very nonverbal, unable to communicate, and is having bouts of moaning as per nurse. At this time, the patient is comfortable in the bed. He was started on morphine 4 mg IV every four hours as needed and the patient has been more comfortable on that medication. He was also found to have a sacral decubitus ulcer due to being bedbound as well as pneumonia. He is seen by a production artist. We were consulted so that the patient would have adequate pain control while here in the hospital. PAST MEDICAL HISTORY: Again dementia, cerebral ataxia, sickle cell disease, paranoid schizophrenia, seizure disorder, epilepsy, cachexia. PAST SURGICAL HISTORY: G-tube placement. SOCIAL HISTORY: Unknown due to the patient's mental condition. ALLERGIES: No known drug allergies as per chart. MEDICATIONS: Zofran. REVIEW OF SYSTEMS: Unable to obtain due to the patient's mental status. PHYSICAL EXAMINATION: GENERAL: Awake. VITAL SIGNS: Blood pressure 130/94, heart rate is 100, oxygen saturation 98%, respirations 18, temperature is 98.3 degrees Fahrenheit. HEENT: PERRLA. NECK: Range of motion is decreased due to the patient's condition. LUNGS: Decreased breath sounds bilaterally. HEART: S1 and S2. Regular. ABDOMEN: Gtube noted. EXTREMITIES: Severe cachexia seen. Sacral decubitus ulcer. Sensory is reduced. Reflexes are not obtainable. No adenopathy. ASSESSMENT AND PLAN: This is a 43-year-old male with dementia, encephalopathy, sepsis, cerebral ataxia, sickle cell disease, and sacral decubitus ulcer. At this time, the patient will be continued on morphine 4 mg IV every 4 hours as needed for pain. Parameters will be set to hold opioids for oversedation or lethargy or systolic blood pressure below 90 or diastolic blood pressure below 60, respiratory rate below 12, oxygen saturation below 92%. The patient was discussed with Dr. Palomino and Dr. Palomino concurred. We will follow up with the patient. Thank you very much for the courtesy of this consultation. Altagracia Palomino M.D. BETTY Stevens DR: NAIF JOB#: [id number] CC: GABRIELA
--- NOTE | 2019-04-27 19:10 | NUR ---
HAND-OFF: Report given to Ramon WITT. Patient is stable.
--- NOTE | 2019-04-27 19:27 | NUR ---
NURSE NOTES: Received patient in bed. Patient is non-verbal. Sitting in high-fowlers. NC in place running at 3 lpm. No respiratory distress noted at this time. Patient appears to be sleeping, no signs of pain at this time. FC in place draining clear yellow urine. IV site in Left forearm with dressing intact and no swelling or redness. IV in right forearm intact with no redness or swelling. GT patent and running feeding at 60 mL/hr. Side-rails padded.
[2019-04-27 20:00] VITALS: BP 105/73
[2019-04-28] VITALS (7 sets, daily range): BP systolic 114–135; BP diastolic 79–92
[2019-04-28] MEDS: Verapamil 80mg tab GT SCH ×3 (05:20→21:52)
[2019-04-28] MEDS: NovoLOG Insulin Flexpen SUBQ SCH ×5 (05:20→23:10)
[2019-04-28] MEDS: Piperacillin/Tazobactam 3.375 GM in NS 110 ML IVPB SCH ×3 (05:20→21:53)
--- NOTE | 2019-04-28 06:58 | NUR ---
HAND-OFF: Report given to Venkat WITT and Flaco WITT.
--- NOTE | 2019-04-28 07:00 | NUR ---
NURSE NOTES: Report received from Ramon WITT. Patient asleep in fowlers position in bed. Patient non verbal. Does not appear to be in discomfort at this time. Is not in respiratory distress. Patient receiving oxygen nasal canula at 3 liters. Indwelling key in place and patent, draining clear yellow urine. Jevity 1.2 running at 60 cc/hr. G tube in place and patent. 22 micaela IVs present and patent in both left and right forearm. Bed in lowest position, locked, and alarmed. Side rails padded. Will continue to follow plan of care.
[2019-04-28] MEDS: Donepezil 10mg tab GT SCH (08:02)
[2019-04-28] MEDS: Lactobacillus-GG tablet GT SCH (08:02)
[2019-04-28] MEDS: Multivitamins W/Minerals 15 ML UDC GT SCH (08:02)
[2019-04-28] MEDS: Heparin 5000 units/ml inj SUBQ SCH ×2 (08:05→21:55)
--- NOTE | 2019-04-28 08:15 | General Progress Note ---
Assessment/Plan Problem List: (1) Sickle cell anemia ICD Codes: D57.1 - Sickle-cell disease without crisis SNOMED: 673949222 (2) Sepsis ICD Codes: A41.9 - Sepsis, unspecified organism SNOMED: 32678346 (3) Epilepsy ICD Codes: G40.909 - Epilepsy, unspecified, not intractable, without status epilepticus SNOMED: 98685810 (4) Cavitary lung disease ICD Codes: J98.4 - Other disorders of lung SNOMED: 182368380 (5) MN-Qjpylnv-Jhogvi disease (6) Nosocomial pneumonia ICD Codes: J18.9 - Pneumonia, unspecified organism; Y95 - Nosocomial condition SNOMED: 796153334 Status: progressing, unchanged Assessment/Plan: sepsis improving no fever check labs pna improving anemia abx per id no siezure Subjective ROS Limited/Unobtainable: Yes Allergies: Coded Allergies: No Known Allergies (Unverified , 04/11/19) Objective Last 24 Hour Vital Signs Date Time Temp Pulse Resp B/P (MAP) Pulse Ox O2 Delivery O2 Flow Rate FiO2 04/28/19 05:20 105 124/84 04/28/19 04:00 97.7 105 19 124/84 (97) 98 04/28/19 00:00 97.9 100 19 120/81 (94) 100 04/27/19 21:40 102 105/73 04/27/19 21:00 Nasal Cannula 3.0 04/27/19 20:00 98.2 102 18 105/73 (84) 100 04/27/19 18:56 121 20 95 Nasal Cannula 3.0 32 04/27/19 18:56 99 Nasal Cannula 3.0 32 04/27/19 16:00 98.9 104 20 107/73 (84) 98 04/27/19 14:00 90 98/70 04/27/19 12:00 98.7 97 21 96/66 (76) 96 04/27/19 09:00 Nasal Cannula 3.0 Intake and Output 04/27/19 04/28/19 19:00 07:00 Intake Total 2488.834 ml 860 ml Output Total 1200 ml 1250 ml Balance 1288.834 ml -390 ml Free Water 100 ml 200 ml IV Total 1668.834 ml Tube Feeding 720 ml 660 ml Output Urine Total 1200 ml 1250 ml Height (Feet): 5 Height (Inches): 7.00 Weight (Pounds): 126 Cardiovascular: normal rate Respiratory/Chest: lungs clear Kenn Pritchett MD Apr 28, 2019 08:15
[2019-04-28] MEDS: D5W IV SCH ×5 (08:26→23:08)
[2019-04-28] MEDS: NS IV SCH (08:26)
[2019-04-28] MEDS: TRIMETHOPRIM IV SCH ×5 (08:26→23:08)
[2019-04-28] MEDS: SULFAMETHOXAZOLE IV SCH ×5 (08:26→23:08)
[2019-04-28] MEDS: PHENYTOIN IV SCH (08:26)
--- NOTE | 2019-04-28 11:33 | Infectious Diseases Prog Note ---
Assessment/Plan Assessment/Plan Assessment: Sepsis Fungemia Blood Cx 04/22/19 - C. alb Blood Cx 04/25/19 2/2 Yeast TTE 04/25/19 - Pend PNA - 04/22/19 Sp Cx P.a. and acenetobacter -04/16 CXR: Left greater than right bibasilar opacities may represent atelectasis versus pneumonia. Findings are decreased compared to prior exam. -CXR: Left basilar atelectasis and possible consolidation -sp cx PsA (ramirez S) -influenza sc neg -u/a neg Fever; SP Leukocytosis; decreasing Gram positive bacteremia- contaminant -04/11 Bcx / CONS; 04/12 Bcx NTD HTN dysphagia s/p GT cerebellar ataxia seizure disorder Alzheimer's dementia SNF resident Plan: - Repeat Blood Cx - Continue Micafungin #3 - Continue Zosyn #3 and Bactrim # 3 - get TTE to R/O IE If Neg will need GAGAN given persistent fungemia - 04/24 SP Meropenem #3 and Vancomycin #3 - 04/22/19 SP Zosyn #3 -04/19 SP Cefepime #9 for PsA PNA -04/18 SP Azithromycin #7/7 -04/16 SP IV Vancomycin #6 -04/11 SP Ceftriaxone x1 -Monitor CBC/CMP, temperatures -GT care -aspiration precautions -CBC, CMP am -Cdiff if diarrhea Thank you for consulting [facility]. Will continue to follow along with you. Subjective Allergies: Coded Allergies: No Known Allergies (Unverified , 04/11/19) Subjective Afebrile so far today Leukocytosis of 16 Fungemia persistent Pt on NC 3L Objective Vital Signs Last 24 Hour Vital Signs Date Time Temp Pulse Resp B/P (MAP) Pulse Ox O2 Delivery O2 Flow Rate FiO2 04/28/19 09:00 Nasal Cannula 3.0 04/28/19 08:23 97 Nasal Cannula 3.0 32 04/28/19 08:00 97.7 102 20 119/84 (96) 98 04/28/19 05:20 105 124/84 04/28/19 04:00 97.7 105 19 124/84 (97) 98 04/28/19 00:00 97.9 100 19 120/81 (94) 100 04/27/19 21:40 102 105/73 04/27/19 21:00 Nasal Cannula 3.0 04/27/19 20:00 98.2 102 18 105/73 (84) 100 04/27/19 18:56 121 20 95 Nasal Cannula 3.0 32 04/27/19 18:56 99 Nasal Cannula 3.0 32 04/27/19 16:00 98.9 104 20 107/73 (84) 98 04/27/19 14:00 90 98/70 04/27/19 12:00 98.7 97 21 96/66 (76) 96 Height (Feet): 5 Height (Inches): 7.00 Weight (Pounds): 126 Objective GENERAL: NAD CARDIOVASCULAR: RRR, S1,S2 LUNGS: Coarse B/L ABDOMEN: Bowel sounds distant. Microbiology Date/Time Source Procedure Growth Status 04/25/19 12:10 Blood Blood Culture - Preliminary Yeast Species Resulted 04/25/19 12:00 Blood Blood Culture - Preliminary Yeast Species Resulted Current Medications Medications (Trade) Dose Ordered Sig/Kory Route PRN Reason Start Time Stop Time Status Last Admin Dose Admin Acetaminophen (Tylenol) 650 mg Q6H PRN GT Mild Pain/Temp > 100.5 04/16/19 17:30 05/11/19 17:29 04/23/19 05:25 Dextrose (Dextrose 50%) 25 ml Q30M PRN IV Hypoglycemia 04/16/19 17:30 05/13/19 16:29 Dextrose (Dextrose 50%) 50 ml Q30M PRN IV Hypoglycemia 04/16/19 17:30 05/13/19 16:29 Donepezil HCl (Aricept) 10 mg DAILY GT 04/17/19 09:00 05/12/19 08:59 04/28/19 08:02 Heparin Sodium (Porcine) (Heparin 5000 units/ml) 5,000 units EVERY 12 HOURS SUBQ 04/16/19 21:00 05/12/19 10:59 04/28/19 08:05 Insulin Aspart (NovoLOG) Q6HR SUBQ 04/16/19 18:00 05/13/19 17:59 04/27/19 18:02 Lactobacillus Acidophilus (Culturelle) 1 tab DAILY GT 04/17/19 09:00 05/12/19 08:59 04/28/19 08:02 Lansoprazole (Prevacid) 30 mg DAILY GT 04/17/19 09:00 05/12/19 08:59 04/28/19 08:03 Micafungin Sodium 100 mg/Sodium Chloride 110 ml @ 110 mls/hr Q24H IVPB 04/24/19 12:00 05/01/19 11:59 04/27/19 12:08 Morphine Sulfate (Morphine Sulfate) 4 mg Q4H PRN IVP For Pain 04/23/19 15:30 04/30/19 15:29 04/27/19 05:10 Multivitamins (Multivitamins W/ Minerals 15ml Liquid) 15 ml DAILY GT 04/17/19 09:00 05/12/19 08:59 04/28/19 08:02 Ondansetron HCl (Zofran) 4 mg Q6H PRN GT Nausea & Vomiting 04/16/19 17:30 05/12/19 17:29 Phenytoin 300 mg/ Sodium Chloride 55 ml @ 110 mls/hr DAILY IV 04/17/19 09:00 05/17/19 08:59 04/28/19 08:26 Piperacillin Sod/ Tazobactam Sod 3.375 gm/Sodium Chloride 110 ml @ 27.5 mls/hr EVERY 8 HOURS IVPB 04/25/19 14:00 04/30/19 13:59 04/28/19 05:20 Primidone (Mysoline) 100 mg QHS GT 04/16/19 21:00 05/12/19 20:59 04/27/19 20:05 Trimethoprim/ Sulfamethoxazole 12 ml/Dextrose 562 ml @ 374.667 mls/hr [id number] BACTRIM IV 04/25/19 16:00 05/02/19 15:59 04/28/19 08:26 Verapamil HCl (Calan) 80 mg EVERY 8 HOURS GT 04/18/19 14:45 05/16/19 14:44 04/28/19 05:20 Rayshawn Soni MD Apr 28, 2019 11:33
[2019-04-28] MEDS: Micafungin 100 MG in NS 110 ML IVPB SCH (12:24)
[2019-04-28] MEDS: LORazepam Inj 2mg/ml 1ml IV PRN ×2 (12:40→18:26)
--- NOTE | 2019-04-28 15:07 | NUR ---
[employer] ANALY[employer] SI: SEPSIS T. 98.9 HR 111 RR 19 B/P 114/79 3L NC WBC 19.6 (04/27) IS: BACTRIM IV MICAFUNGIN IV ZOSYN IV HEPARIN SUBC MED/SURG STATUS
[2019-04-28] MEDS: Morphine Sulfate 4mg/ml Inj (IV USE ONLY) IVP PRN (15:44)
--- NOTE | 2019-04-28 16:00 | Progress Note ---
DATE: 04/28/2019 SUBJECTIVE: This is a 43-year-old male patient with sepsis, pneumonia causing altered mental status and mood lability, decline in cognition below his baseline. As he has altered mental status, his attending has requested daily psychiatric consultation for this patient. MENTAL STATUS EXAMINATION: This is a 43-year-old male. Appearance is disheveled. Attitude, irritable and agitated. Affect, guarded and restricted. Intellect poor. Mood, depressed and anxious. Motor activity, psychomotor agitation. Attention span is poor. Orientation x1. Speech is nonsensical. Thought process, disorganized and illogical. Insight and judgment is poor. DIAGNOSIS: Major depressive disorder, mild, recurrent with psychotic features. PLAN: Plan for this patient is to treat him with a medication regimen of Aricept 10 mg per G-tube daily. A 20 minutes of reality-based supportive psychotherapy. Chart reviewed. Discussed with staff. Seen and assessed in his room. Osbaldo Bird M.D. DR: JUAN JOB#: [id number] CC:
--- NOTE | 2019-04-28 17:05 | Pulmonology Progress Note ---
Assessment/Plan Problems: (1) Sepsis (2) Nosocomial pneumonia (3) Chronic tachycardia (4) Epilepsy (5) Hereditary cerebellar ataxia (6) Cavitary lung disease (7) MZ-Xychojl-Ejwlut disease (8) Feeding by G-tube Assessment/Plan wbc is higher again still tachy at 120 Yeast in Blood cultrures sputum has pseudomonas, pansensitive iv abx symptomatic treatment feeding by Gtube aspiration precaution Verapamil for chronic tachycardia, double the dose since, heart rate is low 100 monitor heart rate prbc prn Hem< 8 dvt prophylaxis. reviewed echo: normal EF Subjective ROS Limited/Unobtainable: Yes Constitutional: Reports: no symptoms HEENT: Repors: no symptoms Allergies: Coded Allergies: No Known Allergies (Unverified , 04/11/19) Objective Last 24 Hour Vital Signs Date Time Temp Pulse Resp B/P (MAP) Pulse Ox O2 Delivery O2 Flow Rate FiO2 04/28/19 15:03 111 114/79 04/28/19 12:00 98.9 111 19 114/79 (91) 97 04/28/19 09:00 Nasal Cannula 3.0 04/28/19 08:23 97 Nasal Cannula 3.0 32 04/28/19 08:00 97.7 102 20 119/84 (96) 98 04/28/19 05:20 105 124/84 04/28/19 04:00 97.7 105 19 124/84 (97) 98 04/28/19 00:00 97.9 100 19 120/81 (94) 100 04/27/19 21:40 102 105/73 04/27/19 21:00 Nasal Cannula 3.0 04/27/19 20:00 98.2 102 18 105/73 (84) 100 04/27/19 18:56 121 20 95 Nasal Cannula 3.0 32 04/27/19 18:56 99 Nasal Cannula 3.0 32 Intake and Output 04/27/19 04/28/19 19:00 07:00 Intake Total 2488.834 ml 920 ml Output Total 1200 ml 1250 ml Balance 1288.834 ml -330 ml Free Water 100 ml 200 ml IV Total 1668.834 ml Tube Feeding 720 ml 720 ml Output Urine Total 1200 ml 1250 ml Objective General Appearance: no acute distress HEENT: normocephalic, anicteric Respiratory/Chest: chest wall non-tender, rhonchi Cardiovascular: normal peripheral pulses, normal rate, regular rhythm Abdomen: normal bowel sounds, soft, non tender Genitourinary: normal external genitalia Extremities: no cyanosis Current Medications Medications (Trade) Dose Ordered Sig/Kory Route PRN Reason Start Time Stop Time Status Last Admin Dose Admin Acetaminophen (Tylenol) 650 mg Q6H PRN GT Mild Pain/Temp > 100.5 04/16/19 17:30 05/11/19 17:29 04/23/19 05:25 Dextrose (Dextrose 50%) 25 ml Q30M PRN IV Hypoglycemia 04/16/19 17:30 05/13/19 16:29 Dextrose (Dextrose 50%) 50 ml Q30M PRN IV Hypoglycemia 04/16/19 17:30 05/13/19 16:29 Donepezil HCl (Aricept) 10 mg DAILY GT 04/17/19 09:00 05/12/19 08:59 04/28/19 08:02 Heparin Sodium (Porcine) (Heparin 5000 units/ml) 5,000 units EVERY 12 HOURS SUBQ 04/16/19 21:00 05/12/19 10:59 04/28/19 08:05 Insulin Aspart (NovoLOG) Q6HR SUBQ 04/16/19 18:00 05/13/19 17:59 04/28/19 12:23 Lactobacillus Acidophilus (Culturelle) 1 tab DAILY GT 04/17/19 09:00 05/12/19 08:59 04/28/19 08:02 Lansoprazole (Prevacid) 30 mg DAILY GT 04/17/19 09:00 05/12/19 08:59 04/28/19 08:03 Lorazepam (Ativan 2mg/ml 1ml) 1 mg Q4H PRN IV Restlessness 04/28/19 12:15 05/05/19 12:14 04/28/19 12:40 Micafungin Sodium 100 mg/Sodium Chloride 110 ml @ 110 mls/hr Q24H IVPB 04/24/19 12:00 05/01/19 11:59 04/28/19 12:24 Morphine Sulfate (Morphine Sulfate) 4 mg Q4H PRN IVP For Pain 04/23/19 15:30 04/30/19 15:29 04/28/19 15:44 Multivitamins (Multivitamins W/ Minerals 15ml Liquid) 15 ml DAILY GT 04/17/19 09:00 05/12/19 08:59 04/28/19 08:02 Ondansetron HCl (Zofran) 4 mg Q6H PRN GT Nausea & Vomiting 04/16/19 17:30 05/12/19 17:29 Phenytoin 300 mg/ Sodium Chloride 55 ml @ 110 mls/hr DAILY IV 04/17/19 09:00 05/17/19 08:59 04/28/19 08:26 Piperacillin Sod/ Tazobactam Sod 3.375 gm/Sodium Chloride 110 ml @ 27.5 mls/hr EVERY 8 HOURS IVPB 04/25/19 14:00 04/30/19 13:59 04/28/19 15:03 Primidone (Mysoline) 100 mg QHS GT 04/16/19 21:00 05/12/19 20:59 04/27/19 20:05 Trimethoprim/ Sulfamethoxazole 12 ml/Dextrose 562 ml @ 374.667 mls/hr [id number] BACTRIM IV 04/25/19 16:00 05/02/19 15:59 04/28/19 16:30 Verapamil HCl (Calan) 80 mg EVERY 8 HOURS GT 04/18/19 14:45 05/16/19 14:44 04/28/19 15:03 Carlos Sauer MD Apr 28, 2019 17:05
--- NOTE | 2019-04-28 19:26 | NUR ---
HAND-OFF: Report given to Steve IWTT. Patient stable.
--- NOTE | 2019-04-28 19:30 | NUR ---
NURSE NOTES: Pt. received from EDUAR Sam. Pt. nonverbal, laying in bed, NC 3L, no signs of pain or respiratory distress at this time. IV right FA 20g saline locked, asymptomatic, intact and patent. IV left FA 20g with fluid running at 5cc/hr, intact and patent. Garcia catheter draining urine well. Jevity 1.2 at 60cc/hr via gtube running well. Head of bed is elevated, side rails are padded, and suction is available at bedside. Bed is low and locked, side rails x2 are up, bed alarm is active, and call light is in reach. Will continue to monitor.
[2019-04-29 04:00] VITALS: BP 128/79
[2019-04-29] MEDS: Albuterol/Ipratropium 3ml neb HHN PRN ×3 (04:40→22:22)
[2019-04-29] MEDS: NovoLOG Insulin Flexpen SUBQ SCH ×4 (06:00→23:34)
[2019-04-29] MEDS: Verapamil 80mg tab GT SCH ×3 (06:10→21:07)
[2019-04-29] MEDS: Piperacillin/Tazobactam 3.375 GM in NS 110 ML IVPB SCH ×3 (06:11→21:08)
--- NOTE | 2019-04-29 07:16 | NUR ---
HAND-OFF: Report given to EDUAR Sebastian.
--- NOTE | 2019-04-29 07:25 | NUR ---
NURSE NOTES: Received report from EDUAR Wilson and EDUAR Phoenix. Patient nonverbal. Occasionally grunts. On nasal cannula 3L/min. Garcia intact, patent, and draining urine. GT intact, patent, and infusing feeding. Bed in lowest position and high contreras position. Side rails up x3. Will continue with plan of care.
--- NOTE | 2019-04-29 07:30 | NUR ---
HAND-OFF: Report given to EDUAR Hill.
[2019-04-29 08:00] VITALS: BP 108/76
--- NOTE | 2019-04-29 08:21 | General Progress Note ---
Assessment/Plan Problem List: (1) Sickle cell anemia ICD Codes: D57.1 - Sickle-cell disease without crisis SNOMED: 713875028 (2) Sepsis ICD Codes: A41.9 - Sepsis, unspecified organism SNOMED: 50902749 (3) Epilepsy ICD Codes: G40.909 - Epilepsy, unspecified, not intractable, without status epilepticus SNOMED: 63869711 (4) Cavitary lung disease ICD Codes: J98.4 - Other disorders of lung SNOMED: 350285150 (5) ZW-Pemmggk-Woqpbb disease (6) Nosocomial pneumonia ICD Codes: J18.9 - Pneumonia, unspecified organism; Y95 - Nosocomial condition SNOMED: 652177749 Status: progressing, unchanged Assessment/Plan: reviewed chart no fever checked labs no acute events pna improving anemia abx per id no siezure Subjective ROS Limited/Unobtainable: Yes Allergies: Coded Allergies: No Known Allergies (Unverified , 04/11/19) Objective Last 24 Hour Vital Signs Date Time Temp Pulse Resp B/P (MAP) Pulse Ox O2 Delivery O2 Flow Rate FiO2 04/29/19 06:10 103 128/79 04/29/19 04:40 103 20 100 Nasal Cannula 3.0 32 98 20 99 04/29/19 04:00 96.9 103 16 128/79 (95) 99 04/28/19 23:52 97.8 104 18 135/90 (105) 100 04/28/19 21:52 112 123/80 04/28/19 21:00 Nasal Cannula 3.0 04/28/19 20:00 97.2 112 18 123/80 (94) 98 04/28/19 19:41 98 Nasal Cannula 3.0 32 04/28/19 16:00 97.2 113 19 126/92 (103) 97 04/28/19 15:03 111 114/79 04/28/19 12:00 98.9 111 19 114/79 (91) 97 04/28/19 09:00 Nasal Cannula 3.0 04/28/19 08:23 97 Nasal Cannula 3.0 32 Intake and Output 04/28/19 04/29/19 19:00 07:00 Intake Total 1998.334 ml 1599.500 ml Output Total 1200 ml Balance 1998.334 ml 399.500 ml Free Water 200 ml 300 ml IV Total 1079.334 ml 699.500 ml Tube Feeding 720 ml 600 ml Output Urine Total 1200 ml Height (Feet): 5 Height (Inches): 7.00 Weight (Pounds): 126 Cardiovascular: normal rate Respiratory/Chest: lungs clear Kenn Pritchett MD Apr 29, 2019 08:21
[2019-04-29] MEDS: SULFAMETHOXAZOLE IV SCH ×3 (08:23→23:33)
[2019-04-29] MEDS: D5W IV SCH ×3 (08:23→23:33)
[2019-04-29] MEDS: TRIMETHOPRIM IV SCH ×3 (08:23→23:33)
[2019-04-29] MEDS: Multivitamins W/Minerals 15 ML UDC GT SCH (08:44)
[2019-04-29] MEDS: Lactobacillus-GG tablet GT SCH (08:44)
[2019-04-29] MEDS: Donepezil 10mg tab GT SCH (08:44)
[2019-04-29] MEDS: Heparin 5000 units/ml inj SUBQ SCH ×2 (08:45→21:10)
[2019-04-29] MEDS: NS IV SCH (10:09)
[2019-04-29] MEDS: PHENYTOIN IV SCH (10:09)
[2019-04-29] MEDS: Morphine Sulfate 4mg/ml Inj (IV USE ONLY) IVP PRN ×3 (10:18→17:43)
[2019-04-29 12:00] VITALS: BP 139/89
[2019-04-29] MEDS: Micafungin 100 MG in NS 110 ML IVPB SCH (12:36)
[2019-04-29 13:34] VITALS: BP 169/103
--- NOTE | 2019-04-29 15:19 | Pulmonology Progress Note ---
Assessment/Plan Problems: (1) Sepsis (2) Nosocomial pneumonia (3) Chronic tachycardia (4) Epilepsy (5) Hereditary cerebellar ataxia (6) Cavitary lung disease (7) ML-Wwaltfe-Ugzflm disease (8) Feeding by G-tube Assessment/Plan still tachy at 120 Yeast in Blood cultrures sputum has pseudomonas, pansensitive iv abx symptomatic treatment feeding by Gtube aspiration precaution Verapamil for chronic tachycardia, double the dose since, heart rate is low 100 monitor heart rate prbc prn Hem< 8 dvt prophylaxis. reviewed echo: normal EF Subjective ROS Limited/Unobtainable: No Allergies: Coded Allergies: No Known Allergies (Unverified , 04/11/19) Objective Last 24 Hour Vital Signs Date Time Temp Pulse Resp B/P (MAP) Pulse Ox O2 Delivery O2 Flow Rate FiO2 04/29/19 14:13 115 169/103 04/29/19 13:34 115 169/103 (125) 04/29/19 10:59 98 Nasal Cannula 3.0 32 04/29/19 08:38 Nasal Cannula 3.0 04/29/19 08:00 97.7 101 19 108/76 (87) 99 04/29/19 06:10 103 128/79 04/29/19 04:40 103 20 100 Nasal Cannula 3.0 32 98 20 99 04/29/19 04:00 96.9 103 16 128/79 (95) 99 04/28/19 23:52 97.8 104 18 135/90 (105) 100 04/28/19 21:52 112 123/80 04/28/19 21:00 Nasal Cannula 3.0 04/28/19 20:00 97.2 112 18 123/80 (94) 98 04/28/19 19:41 98 Nasal Cannula 3.0 32 04/28/19 16:00 97.2 113 19 126/92 (103) 97 Intake and Output 04/28/19 04/29/19 19:00 07:00 Intake Total 1998.334 ml 1599.500 ml Output Total 1200 ml Balance 1998.334 ml 399.500 ml Free Water 200 ml 300 ml IV Total 1079.334 ml 699.500 ml Tube Feeding 720 ml 600 ml Output Urine Total 1200 ml Objective General Appearance: no acute distress HEENT: normocephalic, anicteric Respiratory/Chest: chest wall non-tender, rhonchi Cardiovascular: normal peripheral pulses, normal rate, regular rhythm Abdomen: normal bowel sounds, soft, non tender Genitourinary: normal external genitalia Extremities: no cyanosis Current Medications Medications (Trade) Dose Ordered Sig/Kory Route PRN Reason Start Time Stop Time Status Last Admin Dose Admin Acetaminophen (Tylenol) 650 mg Q6H PRN GT Mild Pain/Temp > 100.5 04/16/19 17:30 05/11/19 17:29 04/23/19 05:25 Albuterol/ Ipratropium (Albuterol/ Ipratropium) 3 ml Q4H PRN HHN Shortness of Breath 04/28/19 22:45 05/03/19 22:44 04/29/19 04:40 Dextrose (Dextrose 50%) 25 ml Q30M PRN IV Hypoglycemia 04/16/19 17:30 05/13/19 16:29 Dextrose (Dextrose 50%) 50 ml Q30M PRN IV Hypoglycemia 04/16/19 17:30 05/13/19 16:29 Donepezil HCl (Aricept) 10 mg DAILY GT 04/17/19 09:00 05/12/19 08:59 04/29/19 08:44 Heparin Sodium (Porcine) (Heparin 5000 units/ml) 5,000 units EVERY 12 HOURS SUBQ 04/16/19 21:00 05/12/19 10:59 04/29/19 08:45 Insulin Aspart (NovoLOG) Q6HR SUBQ 04/16/19 18:00 05/13/19 17:59 04/28/19 23:10 Lactobacillus Acidophilus (Culturelle) 1 tab DAILY GT 04/17/19 09:00 05/12/19 08:59 04/29/19 08:44 Lansoprazole (Prevacid) 30 mg DAILY GT 04/17/19 09:00 05/12/19 08:59 04/29/19 08:44 Lorazepam (Ativan 2mg/ml 1ml) 1 mg Q4H PRN IV Restlessness 04/28/19 12:15 05/05/19 12:14 04/28/19 18:26 Micafungin Sodium 100 mg/Sodium Chloride 110 ml @ 110 mls/hr Q24H IVPB 04/24/19 12:00 05/01/19 11:59 04/29/19 12:36 Morphine Sulfate (Morphine Sulfate) 6 mg Q4H PRN IVP For Pain 04/29/19 13:30 05/06/19 13:29 04/29/19 13:40 Multivitamins (Multivitamins W/ Minerals 15ml Liquid) 15 ml DAILY GT 04/17/19 09:00 05/12/19 08:59 04/29/19 08:44 Ondansetron HCl (Zofran) 4 mg Q6H PRN GT Nausea & Vomiting 04/16/19 17:30 05/12/19 17:29 Phenytoin 300 mg/ Sodium Chloride 55 ml @ 110 mls/hr DAILY IV 04/17/19 09:00 05/17/19 08:59 04/29/19 10:09 Piperacillin Sod/ Tazobactam Sod 3.375 gm/Sodium Chloride 110 ml @ 27.5 mls/hr EVERY 8 HOURS IVPB 04/25/19 14:00 05/04/19 13:59 04/29/19 14:13 Primidone (Mysoline) 100 mg QHS GT 04/16/19 21:00 05/12/19 20:59 04/28/19 21:52 Trimethoprim/ Sulfamethoxazole 12 ml/Dextrose 562 ml @ 374.667 mls/hr [id number] BACTRIM IV 04/25/19 16:00 05/02/19 15:59 04/29/19 08:23 Verapamil HCl (Calan) 80 mg EVERY 8 HOURS GT 04/18/19 14:45 05/16/19 14:44 04/29/19 14:13 Carlos Sauer MD Apr 29, 2019 15:19
--- NOTE | 2019-04-29 15:22 | Infectious Diseases Prog Note ---
Assessment/Plan Assessment/Plan Assessment: Sepsis Fungemia- r/o endocardiis Blood Cx 04/22/19 - C. alb Blood Cx 04/25/19 2/2 C. albicns Bcx 04/28 p TTE 04/25/19 - Pend PNA - 04/22/19 Sp Cx P.a. and acenetobacter -04/16 CXR: Left greater than right bibasilar opacities may represent atelectasis versus pneumonia. Findings are decreased compared to prior exam. -CXR: Left basilar atelectasis and possible consolidation -sp cx PsA (ramirez S) -influenza sc neg -u/a neg Fever; SP Leukocytosis; decreasing Gram positive bacteremia- contaminant -04/11 Bcx / CONS; 04/12 Bcx NTD HTN dysphagia s/p GT cerebellar ataxia seizure disorder Alzheimer's dementia SNF resident Plan: - Repeat Blood Cx - Continue Micafungin #4 - Continue Zosyn #4 and Bactrim # 4 - get TTE to R/O IE If Neg will need GAGAN given persistent fungemia - 04/24 SP Meropenem #3 and Vancomycin #3 - 04/22/19 SP Zosyn #3 -04/19 SP Cefepime #9 for PsA PNA -04/18 SP Azithromycin #7/7 -04/16 SP IV Vancomycin #6 -04/11 SP Ceftriaxone x1 -Monitor CBC/CMP, temperatures -GT care -aspiration precautions -CBC, CMP am -Cdiff if diarrhea Thank you for consulting [facility]. Will continue to follow along with you. Subjective Allergies: Coded Allergies: No Known Allergies (Unverified , 04/11/19) Subjective afebrile fungemic leukocytosis increased Objective Vital Signs Last 24 Hour Vital Signs Date Time Temp Pulse Resp B/P (MAP) Pulse Ox O2 Delivery O2 Flow Rate FiO2 04/29/19 14:13 115 169/103 04/29/19 13:34 115 169/103 (125) 04/29/19 10:59 98 Nasal Cannula 3.0 32 04/29/19 08:38 Nasal Cannula 3.0 04/29/19 08:00 97.7 101 19 108/76 (87) 99 04/29/19 06:10 103 128/79 04/29/19 04:40 103 20 100 Nasal Cannula 3.0 32 98 20 99 04/29/19 04:00 96.9 103 16 128/79 (95) 99 04/28/19 23:52 97.8 104 18 135/90 (105) 100 04/28/19 21:52 112 123/80 04/28/19 21:00 Nasal Cannula 3.0 04/28/19 20:00 97.2 112 18 123/80 (94) 98 04/28/19 19:41 98 Nasal Cannula 3.0 32 04/28/19 16:00 97.2 113 19 126/92 (103) 97 Height (Feet): 5 Height (Inches): 7.00 Weight (Pounds): 126 Objective GENERAL: Calm in bed, lethargic, confused, and nonverbal. VITAL SIGNS: Temperature 101, pulse 98, respirations 21, and blood pressure 108/74. CARDIOVASCULAR: No murmurs. LUNGS: Poor air exchange. ABDOMEN: Bowel sounds distant. EXTREMITIES: No cyanosis, clubbing, or edema. NEUROLOGIC: The patient is flaccid in bed, not following directions. Current Medications Medications (Trade) Dose Ordered Sig/Kory Route PRN Reason Start Time Stop Time Status Last Admin Dose Admin Acetaminophen (Tylenol) 650 mg Q6H PRN GT Mild Pain/Temp > 100.5 04/16/19 17:30 05/11/19 17:29 04/23/19 05:25 Albuterol/ Ipratropium (Albuterol/ Ipratropium) 3 ml Q4H PRN HHN Shortness of Breath 04/28/19 22:45 05/03/19 22:44 04/29/19 04:40 Dextrose (Dextrose 50%) 25 ml Q30M PRN IV Hypoglycemia 04/16/19 17:30 05/13/19 16:29 Dextrose (Dextrose 50%) 50 ml Q30M PRN IV Hypoglycemia 04/16/19 17:30 05/13/19 16:29 Donepezil HCl (Aricept) 10 mg DAILY GT 04/17/19 09:00 05/12/19 08:59 04/29/19 08:44 Heparin Sodium (Porcine) (Heparin 5000 units/ml) 5,000 units EVERY 12 HOURS SUBQ 04/16/19 21:00 05/12/19 10:59 04/29/19 08:45 Insulin Aspart (NovoLOG) Q6HR SUBQ 04/16/19 18:00 05/13/19 17:59 04/28/19 23:10 Lactobacillus Acidophilus (Culturelle) 1 tab DAILY GT 04/17/19 09:00 05/12/19 08:59 04/29/19 08:44 Lansoprazole (Prevacid) 30 mg DAILY GT 04/17/19 09:00 05/12/19 08:59 04/29/19 08:44 Lorazepam (Ativan 2mg/ml 1ml) 1 mg Q4H PRN IV Restlessness 04/28/19 12:15 05/05/19 12:14 04/28/19 18:26 Micafungin Sodium 100 mg/Sodium Chloride 110 ml @ 110 mls/hr Q24H IVPB 04/24/19 12:00 05/01/19 11:59 04/29/19 12:36 Morphine Sulfate (Morphine Sulfate) 6 mg Q4H PRN IVP For Pain 04/29/19 13:30 05/06/19 13:29 04/29/19 13:40 Multivitamins (Multivitamins W/ Minerals 15ml Liquid) 15 ml DAILY GT 04/17/19 09:00 05/12/19 08:59 04/29/19 08:44 Ondansetron HCl (Zofran) 4 mg Q6H PRN GT Nausea & Vomiting 04/16/19 17:30 05/12/19 17:29 Phenytoin 300 mg/ Sodium Chloride 55 ml @ 110 mls/hr DAILY IV 04/17/19 09:00 05/17/19 08:59 04/29/19 10:09 Piperacillin Sod/ Tazobactam Sod 3.375 gm/Sodium Chloride 110 ml @ 27.5 mls/hr EVERY 8 HOURS IVPB 04/25/19 14:00 05/04/19 13:59 04/29/19 14:13 Primidone (Mysoline) 100 mg QHS GT 04/16/19 21:00 05/12/19 20:59 04/28/19 21:52 Trimethoprim/ Sulfamethoxazole 12 ml/Dextrose 562 ml @ 374.667 mls/hr [id number] BACTRIM IV 04/25/19 16:00 05/02/19 15:59 04/29/19 08:23 Verapamil HCl (Calan) 80 mg EVERY 8 HOURS GT 04/18/19 14:45 05/16/19 14:44 04/29/19 14:13 Shirley Cadena M.D. Apr 29, 2019 15:22
[2019-04-29 16:00] VITALS: BP 142/105
--- NOTE | 2019-04-29 19:20 | NUR ---
NURSE NOTES: Received pt from [facility]. Pt is non-verbal on NC 3L. IV sites intact and patent. G tube jevity 1.2 running @ 60 and tolerating well. Suction set up at bedside. Garcia intact and draining well by gravity. Wound dressing dry and intact. Bed locked, lowest position, alarm on, side rails up, call light within reach. Will continue to monitor.
[2019-04-29 20:00] VITALS: BP 152/101
[2019-04-30] VITALS: BP 108/72
[2019-04-30] MEDS: Acetaminophen 650mg/20.3ml GT PRN (01:08)
--- NOTE | 2019-04-30 02:45 | Progress Note ---
DATE: 04/29/2019 SUBJECTIVE: The patient is a 43-year-old male with sepsis, but he also has some pneumonia and shortness of breath. He has altered mental status, confusion, decline in cognition below his baseline. That is why, his attending physician has requested daily psychiatric consultation. DIAGNOSIS: major depressive disorder, mild, recurrent with psychotic features. PLAN: Plan is to treat this patient with psychotropic medication regimen consisting of Ativan 1 mg every 4 hours IV p.r.n. anxiety and agitation and Aricept 10 mg per G-tube daily. Provided with 20 minutes of behavioral management. Chart reviewed. Discussed with staff. Seen and assessed ____. Osbaldo Bird M.D. DR: SHAE JOB#: [id number] CC:
[2019-04-30 04:00] VITALS: BP 132/105
[2019-04-30] MEDS: Verapamil 80mg tab GT SCH ×3 (05:44→21:54)
[2019-04-30] MEDS: Piperacillin/Tazobactam 3.375 GM in NS 110 ML IVPB SCH ×2 (05:44→14:54)
[2019-04-30] MEDS: NovoLOG Insulin Flexpen SUBQ SCH ×4 (05:46→23:36)
--- NOTE | 2019-04-30 07:07 | NUR ---
HAND-OFF: Report given to EDUAR Samson.
--- NOTE | 2019-04-30 07:24 | NUR ---
HAND-OFF: Report given to EDUAR Robledo.
[2019-04-30] MEDS: LORazepam Inj 2mg/ml 1ml IV PRN ×2 (07:49→14:54)
[2019-04-30 08:00] VITALS: BP 123/93
[2019-04-30] MEDS: Multivitamins W/Minerals 15 ML UDC GT SCH (08:13)
[2019-04-30] MEDS: Lactobacillus-GG tablet GT SCH (08:13)
[2019-04-30] MEDS: SULFAMETHOXAZOLE IV SCH ×3 (08:13→23:37)
[2019-04-30] MEDS: TRIMETHOPRIM IV SCH ×3 (08:13→23:37)
[2019-04-30] MEDS: D5W IV SCH ×3 (08:13→23:37)
[2019-04-30] MEDS: Donepezil 10mg tab GT SCH (08:13)
[2019-04-30] MEDS: Heparin 5000 units/ml inj SUBQ SCH ×2 (08:24→20:49)
--- NOTE | 2019-04-30 09:44 | NUR ---
RD ASSESSMENT & RECOMMENDATIONS SEE CARE ACTIVITY FOR COMPLETE ASSESSMENT DAILY ESTIMATED NEEDS: Needs based on Severely underweight/ 45kg 35-40 kcals/kg 3475-1179 total kcals 1.5-2.0 g protein/kg 67-90 g total protein 25-35 mL/kg 5993-7270 total fluid mLs NUTRITION DIAGNOSIS: * Increased kcal/prot needs R/T severely underweight status and wt loss as evidenced by pt ~67% IBW, BMI of 15.5, w/ severe generalized wasting, possible significant wt loss of 50lbs/33% in <8 months as per report. 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 CURRENT TF:Jevity 1.2 @ 60ml/hr x 24 hrs ENTERAL NUTRITION RECOMMENDATIONS: Jevity 1.2 @ 60ml/hr x 24 hrs to provide 1440ml, 1728kcal, 80g prot, 1162ml free water * Maintain current TF @goal rate of 60ml/hr x 24 hrs as tolerated * HOB over 30 degrees * Without IVF, water flush of 100ml q 6 hrs ADDITIONAL RECOMMENDATIONS: * Calibrated bedscale wt for accurate CBW -> weekly wt monitoring given h/o wt loss, severely underweight * Monitor lytes daily, replete as needed-> lytes wnl * REC BOWEL REGIMEN-> last bm 04/25 * Sacral wound photo-> rec WC eval Add UMER in 4oz H2O BID via GT prophy * On added D5-> BG now elev (128-130) w/ AST trending up, need for ssi?
[2019-04-30] MEDS: PHENYTOIN IV SCH (09:47)
[2019-04-30] MEDS: NS IV SCH (09:47)
--- NOTE | 2019-04-30 10:20 | NUR ---
NURSE NOTES: PT RESTING IN BED. PT MOANINGSOFIA. RN ADMINISTERED PRN ATIVAN ORDERED. PT NOW CALM AND IN NO APPARENT DISTRESS. IN HIGH-MELARA'S POSITION WITH HOB ELEVATED. PRN SUCTION. LÓPEZ DRAINING CLEAR YELLOW URINE BY GRAVITY. WILL CONTINUE TO MONITOR.
--- NOTE | 2019-04-30 11:00 | NUR ---
NURSE NOTES: GTUBE DRESSING CHANGED. STOMA IS CLEAN, NO ODOR NOTED. TOLERATING GTUBE FEEDINGS, NO RESIDUALS. IN HIGH MELARA'S POSITION WITH HOB ELEVATED. WILL CONTINUE TO MONITOR.
[2019-04-30 12:00] VITALS: BP 111/75
[2019-04-30] MEDS: Micafungin 100 MG in D5W 110 ML IVPB SCH (12:29)
--- NOTE | 2019-04-30 15:25 | Pulmonology Progress Note ---
Assessment/Plan Problems: (1) Sepsis (2) Nosocomial pneumonia (3) Chronic tachycardia (4) Epilepsy (5) Hereditary cerebellar ataxia (6) Cavitary lung disease (7) IC-Nuzddfm-Wbolyz disease (8) Feeding by G-tube Assessment/Plan still tachy at 120 Yeast in Blood cultrures sputum has pseudomonas, pansensitive iv abx symptomatic treatment feeding by Gtube aspiration precaution Verapamil for chronic tachycardia, double the dose since, heart rate is low 100 monitor heart rate prbc prn Hem< 8 dvt prophylaxis. reviewed echo: normal EF Subjective ROS Limited/Unobtainable: Yes Allergies: Coded Allergies: No Known Allergies (Unverified , 04/11/19) Objective Last 24 Hour Vital Signs Date Time Temp Pulse Resp B/P (MAP) Pulse Ox O2 Delivery O2 Flow Rate FiO2 04/30/19 14:54 101 111/75 04/30/19 12:00 97.9 101 21 111/75 (87) 100 04/30/19 09:00 Nasal Cannula 3.0 04/30/19 08:00 97.5 107 22 123/93 (103) 100 04/30/19 07:55 117 22 97 Nasal Cannula 3.0 32 04/30/19 07:55 97 Nasal Cannula 3.0 32 04/30/19 05:44 111 132/105 04/30/19 04:00 96.7 111 20 132/105 (114) 100 04/30/19 00:00 97.4 106 20 108/72 (84) 100 04/29/19 22:23 97 Nasal Cannula 3.0 32 04/29/19 22:22 118 22 100 Nasal Cannula 3.0 32 114 20 97 04/29/19 21:07 120 152/101 04/29/19 21:00 Nasal Cannula 3.0 04/29/19 20:00 96.8 120 22 152/101 (118) 97 04/29/19 18:08 111 24 100 Nasal Cannula 3.0 32 99 22 98 04/29/19 16:00 97.0 120 22 142/105 (117) 98 Intake and Output 04/29/19 04/30/19 19:00 07:00 Intake Total 60 ml 1020 ml Output Total 1400 ml 1400 ml Balance -1340 ml -380 ml Intake Oral 0 ml Free Water 300 ml Tube Feeding 60 ml 720 ml Output Urine Total 1400 ml 1400 ml Objective General Appearance: no acute distress HEENT: normocephalic, anicteric Respiratory/Chest: chest wall non-tender, rhonchi Cardiovascular: normal peripheral pulses, normal rate, regular rhythm Abdomen: normal bowel sounds, soft, non tender Genitourinary: normal external genitalia Extremities: no cyanosis Microbiology Date/Time Source Procedure Growth Status 04/28/19 17:45 Blood Blood Culture - Preliminary NO GROWTH AFTER 24 HOURS Resulted 04/28/19 17:30 Blood Blood Culture - Preliminary NO GROWTH AFTER 24 HOURS Resulted Current Medications Medications (Trade) Dose Ordered Sig/Kory Route PRN Reason Start Time Stop Time Status Last Admin Dose Admin Acetaminophen (Tylenol) 650 mg Q6H PRN GT Mild Pain/Temp > 100.5 04/16/19 17:30 05/11/19 17:29 04/30/19 01:08 Albuterol/ Ipratropium (Albuterol/ Ipratropium) 3 ml Q4H PRN HHN Shortness of Breath 04/28/19 22:45 05/03/19 22:44 04/29/19 22:22 Dextrose (Dextrose 50%) 25 ml Q30M PRN IV Hypoglycemia 04/16/19 17:30 05/13/19 16:29 Dextrose (Dextrose 50%) 50 ml Q30M PRN IV Hypoglycemia 04/16/19 17:30 05/13/19 16:29 Donepezil HCl (Aricept) 10 mg DAILY GT 04/17/19 09:00 05/12/19 08:59 04/30/19 08:13 Heparin Sodium (Porcine) (Heparin 5000 units/ml) 5,000 units EVERY 12 HOURS SUBQ 04/16/19 21:00 05/12/19 10:59 04/30/19 08:24 Insulin Aspart (NovoLOG) Q6HR SUBQ 04/16/19 18:00 05/13/19 17:59 04/30/19 05:46 Lactobacillus Acidophilus (Culturelle) 1 tab DAILY GT 04/17/19 09:00 05/12/19 08:59 04/30/19 08:13 Lansoprazole (Prevacid) 30 mg DAILY GT 04/17/19 09:00 05/12/19 08:59 04/30/19 08:13 Lorazepam (Ativan 2mg/ml 1ml) 1 mg Q4H PRN IV Restlessness 04/28/19 12:15 05/05/19 12:14 04/30/19 14:54 Micafungin Sodium 100 mg/Dextrose 110 ml @ 110 mls/hr Q24H IVPB 04/30/19 12:00 05/07/19 11:59 04/30/19 12:29 Morphine Sulfate (Morphine Sulfate) 6 mg Q4H PRN IVP For Pain 04/29/19 13:30 05/06/19 13:29 04/29/19 17:43 Multivitamins (Multivitamins W/ Minerals 15ml Liquid) 15 ml DAILY GT 04/17/19 09:00 05/12/19 08:59 04/30/19 08:13 Ondansetron HCl (Zofran) 4 mg Q6H PRN GT Nausea & Vomiting 04/16/19 17:30 05/12/19 17:29 Phenytoin 300 mg/ Sodium Chloride 55 ml @ 110 mls/hr DAILY IV 04/17/19 09:00 05/17/19 08:59 04/30/19 09:47 Piperacillin Sod/ Tazobactam Sod 3.375 gm/Dextrose 110 ml @ 27.5 mls/hr EVERY 8 HOURS IVPB 04/30/19 22:00 05/07/19 21:59 Piperacillin Sod/ Tazobactam Sod 3.375 gm/Sodium Chloride 110 ml @ 27.5 mls/hr EVERY 8 HOURS IVPB 04/25/19 14:00 04/30/19 17:59 04/30/19 14:54 Primidone (Mysoline) 100 mg QHS GT 04/16/19 21:00 05/12/19 20:59 04/29/19 21:07 Trimethoprim/ Sulfamethoxazole 12 ml/Dextrose 562 ml @ 374.667 mls/hr [id number] BACTRIM IV 04/25/19 16:00 05/02/19 15:59 04/30/19 08:13 Verapamil HCl (Calan) 80 mg EVERY 8 HOURS GT 04/18/19 14:45 05/16/19 14:44 04/30/19 14:54 Carlos Sauer MD Apr 30, 2019 15:25
[2019-04-30 16:00] VITALS: BP 110/77
--- NOTE | 2019-04-30 19:19 | NUR ---
HAND-OFF: Report given to Alexandru MONTIEL RN.
--- NOTE | 2019-04-30 19:44 | NUR ---
NURSE NOTES: Received report from EDUAR Robledo. Patient with spontaneous eye opening but non verbal. Breathing unlabored on 3L O2 via NC. No s/s of pain noted at this time. IV noted on bilateral forarm intact. Gtube feeding intact and running feeding as ordered. Bed placed at the lowest with alarm, brake, and siderails up and padded for patient safety. Call light placed within reach. Will continue to monitor and provide care as ordered.
[2019-04-30 20:00] VITALS: BP 133/87
--- NOTE | 2019-04-30 20:05 | NUR ---
NURSE NOTES: Patient's last BM on 04/25/19. No BM charted since. Informed Dr. Pritchett. Received an order for Colace 100 mg po bid and Dulcolax 10 mg po qday. will carry out the order as given.
--- NOTE | 2019-04-30 20:09 | General Progress Note ---
Assessment/Plan Problem List: (1) Sickle cell anemia ICD Codes: D57.1 - Sickle-cell disease without crisis SNOMED: 568554080 (2) Sepsis ICD Codes: A41.9 - Sepsis, unspecified organism SNOMED: 80543361 (3) Epilepsy ICD Codes: G40.909 - Epilepsy, unspecified, not intractable, without status epilepticus SNOMED: 10531429 (4) Cavitary lung disease ICD Codes: J98.4 - Other disorders of lung SNOMED: 211544347 (5) FN-Axkvumh-Powxls disease (6) Nosocomial pneumonia ICD Codes: J18.9 - Pneumonia, unspecified organism; Y95 - Nosocomial condition SNOMED: 157772753 Status: progressing, unchanged Assessment/Plan: constipation consulted gi reviewed chart and labs anemia abx per id no siezure Subjective ROS Limited/Unobtainable: Yes Allergies: Coded Allergies: No Known Allergies (Unverified , 04/11/19) Objective Last 24 Hour Vital Signs Date Time Temp Pulse Resp B/P (MAP) Pulse Ox O2 Delivery O2 Flow Rate FiO2 04/30/19 16:00 98.2 102 22 110/77 (88) 98 04/30/19 14:54 101 111/75 04/30/19 12:00 97.9 101 21 111/75 (87) 100 04/30/19 09:00 Nasal Cannula 3.0 04/30/19 08:00 97.5 107 22 123/93 (103) 100 04/30/19 07:55 117 22 97 Nasal Cannula 3.0 32 04/30/19 07:55 97 Nasal Cannula 3.0 32 04/30/19 05:44 111 132/105 04/30/19 04:00 96.7 111 20 132/105 (114) 100 04/30/19 00:00 97.4 106 20 108/72 (84) 100 04/29/19 22:23 97 Nasal Cannula 3.0 32 04/29/19 22:22 118 22 100 Nasal Cannula 3.0 32 114 20 97 04/29/19 21:07 120 152/101 04/29/19 21:00 Nasal Cannula 3.0 Intake and Output 04/29/19 04/30/19 19:00 07:00 Intake Total 60 ml 1020 ml Output Total 1400 ml 1400 ml Balance -1340 ml -380 ml Intake Oral 0 ml Free Water 300 ml Tube Feeding 60 ml 720 ml Output Urine Total 1400 ml 1400 ml Height (Feet): 5 Height (Inches): 7.00 Weight (Pounds): 126 Cardiovascular: normal rate Respiratory/Chest: lungs clear Abdomen: non tender Kenn Pritchett MD Apr 30, 2019 20:09
[2019-04-30] MEDS: Docusate 100mg/10ml Liq GT SCH (20:47)
--- NOTE | 2019-04-30 20:56 | General Progress Note ---
Assessment/Plan Assessment/Plan: (1) Sacral decubitus ulcer (2) Dementia (3) Encephalopathy (4) Sepsis (5) Cerebral Ataxia (6) Sickle cell disease Pt will be continued on Morphine as needed. D/w Dr. Palomino and he concurred. Subjective Date patient seen: Apr 30, 2019 Time patient seen: 08:15 - pm ROS Limited/Unobtainable: Yes Allergies: Coded Allergies: No Known Allergies (Unverified , 04/11/19) Subjective Patient is in bed no signs of pain or distress. Morphine was increased to 6mg IV Q4H PRN pain as per ophthalmic medical technologist, which has not been administered today. Objective Last 24 Hour Vital Signs Date Time Temp Pulse Resp B/P (MAP) Pulse Ox O2 Delivery O2 Flow Rate FiO2 04/30/19 20:00 97.2 18 133/87 (102) 98 04/30/19 16:00 98.2 102 22 110/77 (88) 98 04/30/19 14:54 101 111/75 04/30/19 12:00 97.9 101 21 111/75 (87) 100 04/30/19 09:00 Nasal Cannula 3.0 04/30/19 08:00 97.5 107 22 123/93 (103) 100 04/30/19 07:55 117 22 97 Nasal Cannula 3.0 32 04/30/19 07:55 97 Nasal Cannula 3.0 32 04/30/19 05:44 111 132/105 04/30/19 04:00 96.7 111 20 132/105 (114) 100 04/30/19 00:00 97.4 106 20 108/72 (84) 100 04/29/19 22:23 97 Nasal Cannula 3.0 32 04/29/19 22:22 118 22 100 Nasal Cannula 3.0 32 114 20 97 04/29/19 21:07 120 152/101 04/29/19 21:00 Nasal Cannula 3.0 Intake and Output 04/29/19 04/30/19 19:00 07:00 Intake Total 60 ml 1020 ml Output Total 1400 ml 1400 ml Balance -1340 ml -380 ml Intake Oral 0 ml Free Water 300 ml Tube Feeding 60 ml 720 ml Output Urine Total 1400 ml 1400 ml Height (Feet): 5 Height (Inches): 7.00 Weight (Pounds): 126 General Appearance: no apparent distress EENT: normal ENT inspection Neck: non-tender Cardiovascular: normal rate Respiratory/Chest: decreased breath sounds Abdomen: other - Gtube noted Extremities: swelling Edema: trace edema Neurologic: responsive Skin: warm/dry Henrry Allison Apr 30, 2019 20:56
--- NOTE | 2019-04-30 21:39 | NUR ---
NURSE NOTES: Reached pharmacy and talked with Nan about antibiotic Bactrim scheduled for 0000. Confirmed with Nan that medication will be brought up before pharmacy closes.
[2019-04-30] MEDS: Piperacillin/Tazobactam 3.375 GM in D5W 110 ML IVPB SCH (21:54)
[2019-05-01] VITALS: BP 140/102
[2019-05-01 04:00] VITALS: BP 115/85
--- NOTE | 2019-05-01 04:06 | NUR ---
NURSE NOTES: Provided sponge bath. Changed sacral dressing. No BM.
[2019-05-01] MEDS: Piperacillin/Tazobactam 3.375 GM in D5W 110 ML IVPB SCH ×3 (05:15→22:30)
[2019-05-01] MEDS: Verapamil 80mg tab GT SCH ×4 (05:16→22:30)
[2019-05-01] MEDS: NovoLOG Insulin Flexpen SUBQ SCH ×4 (05:21→23:59)
--- NOTE | 2019-05-01 07:02 | NUR ---
HAND-OFF: Report given to EDUAR Casillas.
--- NOTE | 2019-05-01 07:29 | NUR ---
NURSE NOTES: Received pt in bed, awake but non-verbal and moaning. Room air. IV on LFA 22g intact and patent, running zosyn and RFA 22g intact and patent, with TKO. G-tube feeding @ 60 ml/hr. Side rails padded for seizure precaution. Bed in the lowest, locked, and alarm on. Call light within reach. Will continue to monitor
[2019-05-01 08:00] VITALS: BP 138/92
[2019-05-01] MEDS: TRIMETHOPRIM IV SCH ×3 (08:26→23:53)
[2019-05-01] MEDS: SULFAMETHOXAZOLE IV SCH ×3 (08:26→23:53)
[2019-05-01] MEDS: D5W IV SCH ×3 (08:26→23:53)
[2019-05-01] MEDS: Multivitamins W/Minerals 15 ML UDC GT SCH (08:26)
[2019-05-01] MEDS: LORazepam Inj 2mg/ml 1ml IV PRN (08:26)
[2019-05-01] MEDS: Donepezil 10mg tab GT SCH (08:27)
[2019-05-01] MEDS: Docusate 100mg/10ml Liq GT SCH ×2 (08:27→17:02)
[2019-05-01] MEDS: Lactobacillus-GG tablet GT SCH (08:27)
[2019-05-01] MEDS: Bisacodyl EC 5mg tab ORAL SCH (08:27)
[2019-05-01] MEDS: Heparin 5000 units/ml inj SUBQ SCH ×2 (08:28→21:00)
[2019-05-01] MEDS: NS IV SCH (10:12)
[2019-05-01] MEDS: PHENYTOIN IV SCH (10:12)
--- NOTE | 2019-05-01 11:32 | NUR ---
RADIOLOGY DEPT., ABDOMEN X-RAY DONE.-P.DYE
[2019-05-01 12:00] VITALS: BP 118/82
[2019-05-01] MEDS: Lactulose 10gm/15ml UDC GT SCH ×2 (12:30→17:02)
--- NOTE | 2019-05-01 12:30 | Diagnostic Imaging Report ---
. Indication: Abdominal pain Technique: Supine view of the abdomen Comparison: none Findings: There is a gastrostomy. There is extensive stool in the descending colon, moderate stool elsewhere. Bowel gas pattern is unremarkable. No masses or unusual calcifications Impression: Evidence of constipation Other findings as noted
[2019-05-01] MEDS: Micafungin 100 MG in D5W 110 ML IVPB SCH (12:31)
--- NOTE | 2019-05-01 13:30 | Infectious Diseases Prog Note ---
Assessment/Plan Assessment/Plan Assessment: Sepsis Fungemia- r/o endocardiis Blood Cx 04/22/19 - C. alb Blood Cx 04/25/19 2/2 C. albicns Bcx 04/28 p TTE 04/25/19 - Pend PNA - 04/22/19 Sp Cx P.a. and acenetobacter -04/16 CXR: Left greater than right bibasilar opacities may represent atelectasis versus pneumonia. Findings are decreased compared to prior exam. -CXR: Left basilar atelectasis and possible consolidation -sp cx PsA (ramirez S) -influenza sc neg -u/a neg Fever; SP Leukocytosis; decreasing Gram positive bacteremia- contaminant -04/11 Bcx 05/06 CONS; 04/12 Bcx NTD HTN dysphagia s/p GT cerebellar ataxia seizure disorder Alzheimer's dementia SNF resident Plan: - Repeat Blood Cx - Continue Micafungin #6 - Continue Zosyn #6/7-10 and Bactrim # 6/7-10 - get TTE to R/O IE If Neg will need GAGAN given persistent fungemia - 04/24 SP Meropenem #3 and Vancomycin #3 - 04/22/19 SP Zosyn #3 -04/19 SP Cefepime #9 for PsA PNA -04/18 SP Azithromycin #7/7 -04/16 SP IV Vancomycin #6 -04/11 SP Ceftriaxone x1 -Monitor CBC/CMP, temperatures -GT care -aspiration precautions -CBC, CMP am -Cdiff if diarrhea Thank you for consulting [facility]. Will continue to follow along with you. Subjective Allergies: Coded Allergies: No Known Allergies (Unverified , 04/11/19) Subjective Afebrile Leukocytosis of 19 Pt on NC 3L Objective Vital Signs Last 24 Hour Vital Signs Date Time Temp Pulse Resp B/P (MAP) Pulse Ox O2 Delivery O2 Flow Rate FiO2 05/01/19 12:00 97.3 117 20 118/82 (94) 100 05/01/19 09:00 Nasal Cannula 3.0 05/01/19 08:00 97.8 104 22 138/92 (107) 99 05/01/19 06:39 97 Nasal Cannula 3.0 32 05/01/19 05:16 105 122/87 05/01/19 04:00 97.3 106 20 115/85 (95) 100 05/01/19 03:41 98 Nasal Cannula 3.0 32 05/01/19 00:00 97.1 110 24 140/102 (115) 98 04/30/19 21:54 104 122/85 04/30/19 21:17 107 99 04/30/19 21:00 Nasal Cannula 3.0 04/30/19 20:00 97.2 18 133/87 (102) 98 04/30/19 16:00 98.2 102 22 110/77 (88) 98 04/30/19 14:54 101 111/75 Height (Feet): 5 Height (Inches): 7.00 Weight (Pounds): 126 Objective GENERAL: NAD on 3L NC CARDIOVASCULAR: RRR, S1,S2 LUNGS: Coarse B/L ABDOMEN: Bowel sounds distant. Microbiology Date/Time Source Procedure Growth Status 04/28/19 17:45 Blood Blood Culture - Preliminary NO GROWTH AFTER 48 HOURS Resulted 04/28/19 17:30 Blood Blood Culture - Preliminary NO GROWTH AFTER 48 HOURS Resulted Current Medications Medications (Trade) Dose Ordered Sig/Kory Route PRN Reason Start Time Stop Time Status Last Admin Dose Admin Acetaminophen (Tylenol) 650 mg Q6H PRN GT Mild Pain/Temp > 100.5 04/16/19 17:30 05/11/19 17:29 04/30/19 01:08 Albuterol/ Ipratropium (Albuterol/ Ipratropium) 3 ml Q4H PRN HHN Shortness of Breath 04/28/19 22:45 05/03/19 22:44 04/29/19 22:22 Bisacodyl (Dulcolax) 10 mg DAILY ORAL 05/01/19 09:00 05/31/19 08:59 05/01/19 08:27 Dextrose (Dextrose 50%) 25 ml Q30M PRN IV Hypoglycemia 04/16/19 17:30 05/13/19 16:29 Dextrose (Dextrose 50%) 50 ml Q30M PRN IV Hypoglycemia 04/16/19 17:30 05/13/19 16:29 Docusate Sodium (Colace) 100 mg TWICE A DAY GT 05/01/19 18:00 05/31/19 17:59 Donepezil HCl (Aricept) 10 mg DAILY GT 04/17/19 09:00 05/12/19 08:59 05/01/19 08:27 Heparin Sodium (Porcine) (Heparin 5000 units/ml) 5,000 units EVERY 12 HOURS SUBQ 04/16/19 21:00 05/12/19 10:59 05/01/19 08:28 Insulin Aspart (NovoLOG) Q6HR SUBQ 04/16/19 18:00 05/13/19 17:59 05/01/19 05:21 Lactobacillus Acidophilus (Culturelle) 1 tab DAILY GT 04/17/19 09:00 05/12/19 08:59 05/01/19 08:27 Lactulose (Cephulac) 10 gm THREE TIMES A DAY GT 05/01/19 13:00 05/31/19 12:59 05/01/19 12:30 Lansoprazole (Prevacid) 30 mg DAILY GT 04/17/19 09:00 05/12/19 08:59 05/01/19 08:27 Lorazepam (Ativan 2mg/ml 1ml) 1 mg Q4H PRN IV Restlessness 04/28/19 12:15 05/05/19 12:14 05/01/19 08:26 Micafungin Sodium 100 mg/Dextrose 110 ml @ 110 mls/hr Q24H IVPB 04/30/19 12:00 05/07/19 11:59 05/01/19 12:31 Morphine Sulfate (Morphine Sulfate) 6 mg Q4H PRN IVP For Pain 04/29/19 13:30 05/06/19 13:29 04/29/19 17:43 Multivitamins (Multivitamins W/ Minerals 15ml Liquid) 15 ml DAILY GT 04/17/19 09:00 05/12/19 08:59 05/01/19 08:26 Ondansetron HCl (Zofran) 4 mg Q6H PRN GT Nausea & Vomiting 04/16/19 17:30 05/12/19 17:29 Phenytoin 300 mg/ Sodium Chloride 55 ml @ 110 mls/hr DAILY IV 04/17/19 09:00 05/17/19 08:59 05/01/19 10:12 Piperacillin Sod/ Tazobactam Sod 3.375 gm/Dextrose 110 ml @ 27.5 mls/hr EVERY 8 HOURS IVPB 04/30/19 22:00 05/07/19 21:59 05/01/19 05:15 Polyethylene Glycol (Miralax) 17 gm BEDTIME GT 05/01/19 21:00 05/31/19 20:59 Primidone (Mysoline) 100 mg QHS GT 04/16/19 21:00 05/12/19 20:59 04/30/19 20:47 Trimethoprim/ Sulfamethoxazole 12 ml/Dextrose 562 ml @ 374.667 mls/hr [id number] BACTRIM IV 04/25/19 16:00 05/07/19 15:59 05/01/19 08:26 Verapamil HCl (Calan) 80 mg EVERY 8 HOURS GT 04/18/19 14:45 05/16/19 14:44 05/01/19 05:16 Rayshawn Soni MD May 01, 2019 13:30
--- NOTE | 2019-05-01 15:08 | NUR ---
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 97.3 HR 117 RR 20 B/P 118/82 3L NC O2 SAT @ 98% IS: ZOSYN IV MICAFUNGIN IV BACTRIM IV DILANTIN IV MED/SURG STATUS
--- NOTE | 2019-05-01 15:16 | General Progress Note ---
Assessment/Plan Problem List: (1) Sickle cell anemia ICD Codes: D57.1 - Sickle-cell disease without crisis SNOMED: 242784151 (2) Sepsis ICD Codes: A41.9 - Sepsis, unspecified organism SNOMED: 58394201 (3) Epilepsy ICD Codes: G40.909 - Epilepsy, unspecified, not intractable, without status epilepticus SNOMED: 47903287 (4) Cavitary lung disease ICD Codes: J98.4 - Other disorders of lung SNOMED: 184225968 (5) GV-Otxginn-Abdqsn disease (6) Nosocomial pneumonia ICD Codes: J18.9 - Pneumonia, unspecified organism; Y95 - Nosocomial condition SNOMED: 551623316 Status: progressing Assessment/Plan: constipation anemia.check h/h ordered cbc anemia no acute events abx per id Subjective ROS Limited/Unobtainable: Yes Allergies: Coded Allergies: No Known Allergies (Unverified , 04/11/19) Objective Last 24 Hour Vital Signs Date Time Temp Pulse Resp B/P (MAP) Pulse Ox O2 Delivery O2 Flow Rate FiO2 05/01/19 12:00 97.3 117 20 118/82 (94) 100 05/01/19 09:00 Nasal Cannula 3.0 05/01/19 08:00 97.8 104 22 138/92 (107) 99 05/01/19 06:39 97 Nasal Cannula 3.0 32 05/01/19 05:16 105 122/87 05/01/19 04:00 97.3 106 20 115/85 (95) 100 05/01/19 03:41 98 Nasal Cannula 3.0 32 05/01/19 00:00 97.1 110 24 140/102 (115) 98 04/30/19 21:54 104 122/85 04/30/19 21:17 107 99 04/30/19 21:00 Nasal Cannula 3.0 04/30/19 20:00 97.2 18 133/87 (102) 98 04/30/19 16:00 98.2 102 22 110/77 (88) 98 Intake and Output 04/30/19 05/01/19 19:00 07:00 Intake Total 2359.000 ml 1719.500 ml Output Total 1600 ml 1800 ml Balance 759.000 ml -80.500 ml Intake Oral 0 ml Free Water 230 ml 300 ml IV Total 1409.000 ml 699.500 ml Tube Feeding 720 ml 720 ml Output Urine Total 1600 ml 1800 ml Height (Feet): 5 Height (Inches): 7.00 Weight (Pounds): 126 Cardiovascular: normal rate Respiratory/Chest: lungs clear Kenn Pritchett MD May 01, 2019 15:16
[2019-05-01] MEDS ORDERED: Sterile Water Irrig 1000ml IRRIG ONE (15:59)
[2019-05-01] MEDS ORDERED: NS 275ml ONE (15:59)
[2019-05-01 16:00] VITALS: BP 156/110
--- NOTE | 2019-05-01 17:15 | Consultation ---
DATE OF CONSULTATION: 05/01/2019 CONSULTING PHYSICIAN: Faizan Esqueda M.D. REFERRING PHYSICIAN: Kenn Pritchett M.D. CHIEF COMPLAINT: Constipation. HISTORY OF PRESENT ILLNESS: Most of the history per chart. This is a 43-year-old male, halfway patient with history of CVA, hypertension, sickle cell disease, and history of dysphagia with G-tube, was admitted to the hospital and was found to be profoundly constipated. GI consult requested for further evaluation. PAST MEDICAL HISTORY: 1. History of CVA. 2. Dysphagia with G-tube. 3. Hypertension. 4. GERD. 5. Epilepsy. 6. Peptic ulcer disease. ALLERGIES: No known allergies. MEDICATIONS: Please see medication reconciliation list. FAMILY HISTORY: Noncontributory. SOCIAL HISTORY: Limited. REVIEW OF SYSTEMS: Limited. PHYSICAL EXAMINATION: VITAL SIGNS: Temperature is 97.8, pulse 104, respirations 22, blood pressure 132/92. HEENT: Normocephalic and atraumatic. Sclerae are anicteric. NECK: Supple. No lymphadenopathy. CARDIOVASCULAR: Tachy, regular rate. Plus S1 and S2. LUNGS: Decreased breath sounds bilaterally based on the supine exam. ABDOMEN: Soft and nontender. G-tube in place. No rebound. No guarding. No peritoneal sign. EXTREMITIES: No cyanosis, no clubbing, no edema. LABORATORY DATA: White count is 19,000, hemoglobin 12, hematocrit 33, and platelets of 545,000. Chem-7, sodium is 134, potassium 4.3, BUN 11, and creatinine 0.7. ASSESSMENT AND PLAN: This is a 43-year-old male with numerous medical problems, now with white count of 19,000, mildly anemic with history of dysphagia on G-tube, and profoundly constipated. Plan is to put him on a bowel regimen including Colace, MiraLAX, and low-dose lactulose. We will also give him Dulcolax suppository one dose today. We are going to order a KUB to rule out stool impaction. We will re-examine him tomorrow and re-evaluate him again tomorrow and see if there is need for more laxative. I want to thank Dr. Kenn Pritchett for this kind referral. Faizan Katalina Esqueda DR: JOELLE JOB#: [id number] CC:
[2019-05-01 17:18] LABS: ALANINE AMINOTRANSFERASE 116 U/L (12-78); ALBUMIN 2.7 G/DL (3.4-5.0); ALBUMIN/GLOBULIN RATIO 0.4 (1.0-2.7); ALKALINE PHOSPHATASE 123 U/L (46-116); ANION GAP 9 mmol/L (5-15); ASPARTATE AMINO TRANSFERASE 52 U/L (15-37); BILIRUBIN,TOTAL 0.5 MG/DL (0.2-1.0); BLOOD UREA NITROGEN 14 mg/dL (7-18); CALCIUM 9.9 MG/DL (8.5-10.1); CARBON DIOXIDE 26 MMOL/L (21-32); CHLORIDE 101 MMOL/L (98-107); CREATININE 0.8 MG/DL (0.55-1.30); SODIUM 136 MMOL/L (136-145)
[2019-05-01 17:33] LABS: BASOPHILS % (AUTO) 1.9 % (0.0-2.0); EOSINOPHILS % (AUTO) 1.7 % (0.0-3.0); HEMATOCRIT 35.1 % (42.0-52.0); HEMOGLOBIN 12.4 G/DL (14.2-18.0); LYMPHOCYTES % (AUTO) 27.4 % (20.0-45.0); MEAN CORPUSCULAR VOLUME 86 FL (80-99); MONOCYTES % (AUTO) 8.1 % (1.0-10.0); NEUTROPHILS % (AUTO) 60.9 % (45.0-75.0); PLATELET COUNT 709 K/UL (150-450); RED BLOOD COUNT 4.09 M/UL (4.70-6.10); RED CELL DISTRIBUTION WIDTH 18.7 % (11.6-14.8); WHITE BLOOD COUNT 14.3 K/UL (4.8-10.8)
--- NOTE | 2019-05-01 17:47 | Pulmonology Progress Note ---
Assessment/Plan Problems: (1) Sepsis (2) Nosocomial pneumonia (3) Chronic tachycardia (4) Epilepsy (5) Hereditary cerebellar ataxia (6) Cavitary lung disease (7) VI-Wmvodke-Buywib disease (8) Feeding by G-tube Assessment/Plan KUB reviewed, Large amount of feces noted still tachy at 120 Yeast in Blood cultrures sputum has pseudomonas, pansensitive iv abx symptomatic treatment feeding by Gtube aspiration precaution Verapamil for chronic tachycardia, double the dose since, heart rate is low 100 monitor heart rate prbc prn Hem< 8 dvt prophylaxis. reviewed echo: normal EF Subjective ROS Limited/Unobtainable: No Constitutional: Reports: no symptoms HEENT: Repors: no symptoms Respiratory: Reports: no symptoms Allergies: Coded Allergies: No Known Allergies (Unverified , 04/11/19) Objective Last 24 Hour Vital Signs Date Time Temp Pulse Resp B/P (MAP) Pulse Ox O2 Delivery O2 Flow Rate FiO2 05/01/19 16:00 97.5 123 21 156/110 (125) 99 05/01/19 15:24 117 118/82 05/01/19 12:00 97.3 117 20 118/82 (94) 100 05/01/19 09:00 Nasal Cannula 3.0 05/01/19 08:00 97.8 104 22 138/92 (107) 99 05/01/19 06:39 97 Nasal Cannula 3.0 32 05/01/19 05:16 105 122/87 05/01/19 04:00 97.3 106 20 115/85 (95) 100 05/01/19 03:41 98 Nasal Cannula 3.0 32 05/01/19 00:00 97.1 110 24 140/102 (115) 98 04/30/19 21:54 104 122/85 04/30/19 21:17 107 99 04/30/19 21:00 Nasal Cannula 3.0 04/30/19 20:00 97.2 18 133/87 (102) 98 Intake and Output 04/30/19 05/01/19 19:00 07:00 Intake Total 2359.000 ml 1719.500 ml Output Total 1600 ml 1800 ml Balance 759.000 ml -80.500 ml Intake Oral 0 ml Free Water 230 ml 300 ml IV Total 1409.000 ml 699.500 ml Tube Feeding 720 ml 720 ml Output Urine Total 1600 ml 1800 ml Objective General Appearance: no acute distress HEENT: normocephalic, anicteric Respiratory/Chest: chest wall non-tender, rhonchi Cardiovascular: normal peripheral pulses, normal rate, regular rhythm Abdomen: normal bowel sounds, soft, non tender Genitourinary: normal external genitalia Extremities: no cyanosis Laboratory Tests 05/01/19 16:12: White Blood Count 14.3H, Red Blood Count 4.09L, Hemoglobin 12.4L, Hematocrit 35.1L, Mean Corpuscular Volume 86, Mean Corpuscular Hemoglobin 30.4, Mean Corpuscular Hemoglobin Concent 35.4, Red Cell Distribution Width 18.7H, Platelet Count 709H, Mean Platelet Volume 5.9L, Neutrophils (%) (Auto) 60.9, Lymphocytes (%) (Auto) 27.4, Monocytes (%) (Auto) 8.1, Eosinophils (%) (Auto) 1.7, Basophils (%) (Auto) 1.9, Sodium Level 136, Potassium Level 4.0, Chloride Level 101, Carbon Dioxide Level 26, Anion Gap 9, Blood Urea Nitrogen 14, Creatinine 0.8, Estimat Glomerular Filtration Rate > 60, Glucose Level 119H, Calcium Level 9.9, Total Bilirubin 0.5, Aspartate Amino Transf (AST/SGOT) 52H, Alanine Aminotransferase (ALT/SGPT) 116H, Alkaline Phosphatase 123H, Total Protein 9.6H, Albumin 2.7L, Globulin 6.9, Albumin/Globulin Ratio 0.4L Current Medications Medications (Trade) Dose Ordered Sig/Kory Route PRN Reason Start Time Stop Time Status Last Admin Dose Admin Acetaminophen (Tylenol) 650 mg Q6H PRN GT Mild Pain/Temp > 100.5 04/16/19 17:30 05/11/19 17:29 04/30/19 01:08 Albuterol/ Ipratropium (Albuterol/ Ipratropium) 3 ml Q4H PRN HHN Shortness of Breath 04/28/19 22:45 05/03/19 22:44 04/29/19 22:22 Bisacodyl (Dulcolax) 10 mg DAILY ORAL 05/01/19 09:00 05/31/19 08:59 05/01/19 08:27 Dextrose (Dextrose 50%) 25 ml Q30M PRN IV Hypoglycemia 04/16/19 17:30 05/13/19 16:29 Dextrose (Dextrose 50%) 50 ml Q30M PRN IV Hypoglycemia 04/16/19 17:30 05/13/19 16:29 Docusate Sodium (Colace) 100 mg TWICE A DAY GT 05/01/19 18:00 05/31/19 17:59 05/01/19 17:02 Donepezil HCl (Aricept) 10 mg DAILY GT 04/17/19 09:00 05/12/19 08:59 05/01/19 08:27 Heparin Sodium (Porcine) (Heparin 5000 units/ml) 5,000 units EVERY 12 HOURS SUBQ 04/16/19 21:00 05/12/19 10:59 05/01/19 08:28 Insulin Aspart (NovoLOG) Q6HR SUBQ 04/16/19 18:00 05/13/19 17:59 05/01/19 05:21 Lactobacillus Acidophilus (Culturelle) 1 tab DAILY GT 04/17/19 09:00 05/12/19 08:59 05/01/19 08:27 Lactulose (Cephulac) 10 gm THREE TIMES A DAY GT 05/01/19 13:00 05/31/19 12:59 05/01/19 17:02 Lansoprazole (Prevacid) 30 mg DAILY GT 04/17/19 09:00 05/12/19 08:59 05/01/19 08:27 Lorazepam (Ativan 2mg/ml 1ml) 1 mg Q4H PRN IV Restlessness 04/28/19 12:15 05/05/19 12:14 05/01/19 08:26 Micafungin Sodium 100 mg/Dextrose 110 ml @ 110 mls/hr Q24H IVPB 04/30/19 12:00 05/07/19 11:59 05/01/19 12:31 Morphine Sulfate (Morphine Sulfate) 6 mg Q4H PRN IVP For Pain 04/29/19 13:30 05/06/19 13:29 04/29/19 17:43 Multivitamins (Multivitamins W/ Minerals 15ml Liquid) 15 ml DAILY GT 04/17/19 09:00 05/12/19 08:59 05/01/19 08:26 Ondansetron HCl (Zofran) 4 mg Q6H PRN GT Nausea & Vomiting 04/16/19 17:30 05/12/19 17:29 Phenytoin 300 mg/ Sodium Chloride 55 ml @ 110 mls/hr DAILY IV 04/17/19 09:00 05/17/19 08:59 05/01/19 10:12 Piperacillin Sod/ Tazobactam Sod 3.375 gm/Dextrose 110 ml @ 27.5 mls/hr EVERY 8 HOURS IVPB 04/30/19 22:00 05/07/19 21:59 05/01/19 15:37 Polyethylene Glycol (Miralax) 17 gm BEDTIME GT 05/01/19 21:00 05/31/19 20:59 Primidone (Mysoline) 100 mg QHS GT 04/16/19 21:00 05/12/19 20:59 04/30/19 20:47 Trimethoprim/ Sulfamethoxazole 12 ml/Dextrose 562 ml @ 374.667 mls/hr [id number] BACTRIM IV 04/25/19 16:00 05/07/19 15:59 05/01/19 17:01 Verapamil HCl (Calan) 80 mg EVERY 8 HOURS GT 04/18/19 14:45 05/16/19 14:44 05/01/19 15:24 Carlos Sauer MD May 01, 2019 17:46
--- NOTE | 2019-05-01 17:58 | General Progress Note ---
Assessment/Plan Assessment/Plan: (1) Sacral decubitus ulcer (2) Dementia (3) Encephalopathy (4) Sepsis (5) Cerebral Ataxia (6) Sickle cell disease Pt will be continued on Morphine reduced to 4mg IV Q4H as needed. D/w Dr. Palomino and he concurred. Subjective Date patient seen: May 01, 2019 Time patient seen: 05:30 - pm ROS Limited/Unobtainable: Yes Allergies: Coded Allergies: No Known Allergies (Unverified , 04/11/19) Subjective Patient showing no signs of pain or distress. Morphine has not been administered in the last 24hrs. Objective Last 24 Hour Vital Signs Date Time Temp Pulse Resp B/P (MAP) Pulse Ox O2 Delivery O2 Flow Rate FiO2 05/01/19 16:00 97.5 123 21 156/110 (125) 99 05/01/19 15:24 117 118/82 05/01/19 12:00 97.3 117 20 118/82 (94) 100 05/01/19 09:00 Nasal Cannula 3.0 05/01/19 08:00 97.8 104 22 138/92 (107) 99 05/01/19 06:39 97 Nasal Cannula 3.0 32 05/01/19 05:16 105 122/87 05/01/19 04:00 97.3 106 20 115/85 (95) 100 05/01/19 03:41 98 Nasal Cannula 3.0 32 05/01/19 00:00 97.1 110 24 140/102 (115) 98 04/30/19 21:54 104 122/85 04/30/19 21:17 107 99 04/30/19 21:00 Nasal Cannula 3.0 04/30/19 20:00 97.2 18 133/87 (102) 98 Intake and Output 04/30/19 05/01/19 19:00 07:00 Intake Total 2359.000 ml 1719.500 ml Output Total 1600 ml 1800 ml Balance 759.000 ml -80.500 ml Intake Oral 0 ml Free Water 230 ml 300 ml IV Total 1409.000 ml 699.500 ml Tube Feeding 720 ml 720 ml Output Urine Total 1600 ml 1800 ml Laboratory Tests 05/01/19 16:12: White Blood Count 14.3H, Red Blood Count 4.09L, Hemoglobin 12.4L, Hematocrit 35.1L, Mean Corpuscular Volume 86, Mean Corpuscular Hemoglobin 30.4, Mean Corpuscular Hemoglobin Concent 35.4, Red Cell Distribution Width 18.7H, Platelet Count 709H, Mean Platelet Volume 5.9L, Neutrophils (%) (Auto) 60.9, Lymphocytes (%) (Auto) 27.4, Monocytes (%) (Auto) 8.1, Eosinophils (%) (Auto) 1.7, Basophils (%) (Auto) 1.9, Sodium Level 136, Potassium Level 4.0, Chloride Level 101, Carbon Dioxide Level 26, Anion Gap 9, Blood Urea Nitrogen 14, Creatinine 0.8, Estimat Glomerular Filtration Rate > 60, Glucose Level 119H, Calcium Level 9.9, Total Bilirubin 0.5, Aspartate Amino Transf (AST/SGOT) 52H, Alanine Aminotransferase (ALT/SGPT) 116H, Alkaline Phosphatase 123H, Total Protein 9.6H, Albumin 2.7L, Globulin 6.9, Albumin/Globulin Ratio 0.4L Height (Feet): 5 Height (Inches): 7.00 Weight (Pounds): 126 Objective General Appearance: no apparent distress EENT: normal ENT inspection Neck: non-tender Cardiovascular: normal rate Respiratory/Chest: decreased breath sounds Abdomen: other - Gtube noted Extremities: swelling Edema: trace edema Neurologic: responsive Skin: warm/dry Henrry Allison May 01, 2019 17:58
[2019-05-01] MEDS ORDERED: Fleet's Enema 133ml RECTAL PRN (18:15)
--- NOTE | 2019-05-01 19:30 | NUR ---
HAND-OFF: Report given to EDUAR Ma.
--- NOTE | 2019-05-01 19:30 | NUR ---
NURSE NOTES: received report from EDUAR Casillas. Patient awake, non-verbal, and restless. breathing unlabored on 3L O2 via nasal cannula. IV noted intact on bilateral forearm. Patient on P200 mattress. Bed placed at the lowest with alarm, brake, and siderails up and padded for patient safety. G-tube feeding running as ordered without residual. Garcia intact draining urine, anchor secured to left thigh. Suction provided. Call light placed within reach. Will continue to monitor and provide care as ordered.
[2019-05-01 20:00] VITALS: BP 146/96
[2019-05-01] MEDS: Miralax 17gm pkt GT SCH (20:53)
--- NOTE | 2019-05-01 23:12 | NUR ---
NURSE NOTES: Previous IV site on right forearm leaking and puffy. Placed new 22g IV on the right thumb. Attempted explaining the procedure prior and during the process. Patient tolerated the process well. New IV site intact, dry, clean, and patent running TKO. Will continue to monitor.
[2019-05-02] VITALS: BP 134/93
--- NOTE | 2019-05-02 00:30 | NUR ---
NURSE NOTES: Cleaned patient after giving fleet enema. Patient was not able to hold the entire enema. Had BM, small amount, bright brown. Changed sacral dressing. Changed gtube dressing. Will continue to monitor and provide care as ordered.
[2019-05-02] MEDS: LORazepam Inj 2mg/ml 1ml IV PRN (01:14)
[2019-05-02 04:00] VITALS: BP 113/81
[2019-05-02] MEDS: Piperacillin/Tazobactam 3.375 GM in D5W 110 ML IVPB SCH ×3 (05:15→21:42)
[2019-05-02] MEDS: NovoLOG Insulin Flexpen SUBQ SCH ×3 (05:40→18:00)
[2019-05-02] MEDS: Verapamil 80mg tab GT SCH ×3 (05:44→21:42)
--- NOTE | 2019-05-02 05:45 | NUR ---
NURSE NOTES: Patient had a BM. Cleaning patient and changed sacral dressing. Will continue to monitor the patient.
--- NOTE | 2019-05-02 07:42 | NUR ---
HAND-OFF: Report given to EDUAR Trejo. Endorsed plan of care.
[2019-05-02 08:00] VITALS: BP 121/86
--- NOTE | 2019-05-02 08:00 | NUR ---
NURSE NOTES: Patient opens eyes when named called,respirations unlabored.Patient tolerating G-tube feedings, no residual noted at this time.Garcia catheter is in place and draining gagan color urine.HOB is elevated.Bed alarm is on.
[2019-05-02] MEDS: Donepezil 10mg tab GT SCH (08:10)
[2019-05-02] MEDS: Docusate 100mg/10ml Liq GT SCH ×2 (08:10→18:02)
[2019-05-02] MEDS: Lactulose 10gm/15ml UDC GT SCH ×3 (08:10→18:01)
[2019-05-02] MEDS: Lactobacillus-GG tablet GT SCH (08:10)
[2019-05-02] MEDS: Multivitamins W/Minerals 15 ML UDC GT SCH (08:11)
[2019-05-02] MEDS: Bisacodyl EC 5mg tab ORAL SCH (08:13)
[2019-05-02] MEDS: Heparin 5000 units/ml inj SUBQ SCH ×2 (08:14→21:00)
[2019-05-02] MEDS: TRIMETHOPRIM IV SCH ×2 (08:59→17:50)
[2019-05-02] MEDS: D5W IV SCH ×2 (08:59→17:50)
[2019-05-02] MEDS: SULFAMETHOXAZOLE IV SCH ×2 (08:59→17:50)
--- NOTE | 2019-05-02 10:34 | General Progress Note ---
Assessment/Plan Assessment/Plan: 1. History of CVA. 2. Dysphagia with G-tube. 3. Hypertension. 4. GERD. 5. Epilepsy. 6. Peptic ulcer disease. 7.constipation 8. Elevated LFTS BM x2 laxative abd us repeat labs Subjective ROS Limited/Unobtainable: No Allergies: Coded Allergies: No Known Allergies (Unverified , 04/11/19) Objective Last 24 Hour Vital Signs Date Time Temp Pulse Resp B/P (MAP) Pulse Ox O2 Delivery O2 Flow Rate FiO2 05/02/19 09:05 Nasal Cannula 3.0 05/02/19 08:00 98.0 109 20 121/86 (98) 98 05/02/19 05:44 110 125/90 05/02/19 04:00 97.3 113 20 113/81 (92) 100 05/02/19 00:00 97.7 113 20 134/93 (107) 98 05/01/19 22:30 111 130/106 05/01/19 21:00 Nasal Cannula 3.0 05/01/19 20:33 93 Nasal Cannula 3.0 32 05/01/19 20:00 98.1 100 20 146/96 (113) 98 05/01/19 16:00 97.5 123 21 156/110 (125) 99 05/01/19 15:24 117 118/82 05/01/19 12:00 97.3 117 20 118/82 (94) 100 Intake and Output 05/01/19 05/02/19 19:00 07:00 Intake Total 820 ml 1619.500 ml Output Total 1300 ml 1200 ml Balance -480 ml 419.500 ml Free Water 100 ml 200 ml IV Total 699.500 ml Tube Feeding 720 ml 720 ml Output Urine Total 1300 ml 1200 ml # Bowel Movements 2 Laboratory Tests 05/01/19 16:12: White Blood Count 14.3H, Red Blood Count 4.09L, Hemoglobin 12.4L, Hematocrit 35.1L, Mean Corpuscular Volume 86, Mean Corpuscular Hemoglobin 30.4, Mean Corpuscular Hemoglobin Concent 35.4, Red Cell Distribution Width 18.7H, Platelet Count 709H, Mean Platelet Volume 5.9L, Neutrophils (%) (Auto) 60.9, Lymphocytes (%) (Auto) 27.4, Monocytes (%) (Auto) 8.1, Eosinophils (%) (Auto) 1.7, Basophils (%) (Auto) 1.9, Sodium Level 136, Potassium Level 4.0, Chloride Level 101, Carbon Dioxide Level 26, Anion Gap 9, Blood Urea Nitrogen 14, Creatinine 0.8, Estimat Glomerular Filtration Rate > 60, Glucose Level 119H, Calcium Level 9.9, Total Bilirubin 0.5, Aspartate Amino Transf (AST/SGOT) 52H, Alanine Aminotransferase (ALT/SGPT) 116H, Alkaline Phosphatase 123H, Total Protein 9.6H, Albumin 2.7L, Globulin 6.9, Albumin/Globulin Ratio 0.4L Height (Feet): 5 Height (Inches): 7.00 Weight (Pounds): 126 General Appearance: alert EENT: normal ENT inspection Neck: supple Cardiovascular: normal rate Respiratory/Chest: decreased breath sounds Abdomen: normal bowel sounds, non tender, soft Extremities: non-tender Faizan Esqueda MD May 02, 2019 10:33
--- NOTE | 2019-05-02 10:41 | Infectious Diseases Prog Note ---
Assessment/Plan Assessment/Plan Assessment: Sepsis Fungemia- r/o endocardiis Blood Cx 04/22/19 - C. alb Blood Cx 04/25/19 2/2 C. albicns Bcx 04/28 p TTE 04/12/19 - No Vegitations PNA - 04/22/19 Sp Cx P.a. and acenetobacter -04/16 CXR: Left greater than right bibasilar opacities may represent atelectasis versus pneumonia. Findings are decreased compared to prior exam. -CXR: Left basilar atelectasis and possible consolidation -sp cx PsA (ramirez S) -influenza sc neg -u/a neg Fever; SP Leukocytosis; decreasing Gram positive bacteremia- contaminant -04/11 Bcx / CONS; 04/12 Bcx NTD HTN dysphagia s/p GT cerebellar ataxia seizure disorder Alzheimer's dementia SNF resident Plan: - Get GAGAN to r/o Endocarditis - f/u Repeat Blood Cx - Continue Micafungin #7 - Continue Zosyn #7/-10 and Bactrim # 7/7-10 - 04/24 SP Meropenem #3 and Vancomycin #3 - 04/22/19 SP Zosyn #3 -04/19 SP Cefepime #9 for PsA PNA -04/18 SP Azithromycin #7/7 -04/16 SP IV Vancomycin #6 -04/11 SP Ceftriaxone x1 -Monitor CBC/CMP, temperatures -GT care -aspiration precautions -CBC, CMP am -Cdiff if diarrhea Thank you for consulting [facility]. Will continue to follow along with you. Subjective Allergies: Coded Allergies: No Known Allergies (Unverified , 04/11/19) Subjective Afebrile Leukocytosis of 14 Pt on NC 3L Objective Vital Signs Last 24 Hour Vital Signs Date Time Temp Pulse Resp B/P (MAP) Pulse Ox O2 Delivery O2 Flow Rate FiO2 05/02/19 09:05 Nasal Cannula 3.0 05/02/19 08:00 98.0 109 20 121/86 (98) 98 05/02/19 05:44 110 125/90 05/02/19 04:00 97.3 113 20 113/81 (92) 100 05/02/19 00:00 97.7 113 20 134/93 (107) 98 05/01/19 22:30 111 130/106 05/01/19 21:00 Nasal Cannula 3.0 05/01/19 20:33 93 Nasal Cannula 3.0 32 05/01/19 20:00 98.1 100 20 146/96 (113) 98 05/01/19 16:00 97.5 123 21 156/110 (125) 99 05/01/19 15:24 117 118/82 05/01/19 12:00 97.3 117 20 118/82 (94) 100 Height (Feet): 5 Height (Inches): 7.00 Weight (Pounds): 126 Objective GENERAL: NAD on 3L NC, Awake and following CARDIOVASCULAR: RRR, S1,S2 LUNGS: Coarse B/L ABDOMEN: Bowel sounds distant. Laboratory Tests Test 05/01/19 16:12 White Blood Count 14.3 K/UL (4.8-10.8) H Red Blood Count 4.09 M/UL (4.70-6.10) L Hemoglobin 12.4 G/DL (14.2-18.0) L Hematocrit 35.1 % (42.0-52.0) L Mean Corpuscular Volume 86 FL (80-99) Mean Corpuscular Hemoglobin 30.4 PG (27.0-31.0) Mean Corpuscular Hemoglobin Concent 35.4 G/DL (32.0-36.0) Red Cell Distribution Width 18.7 % (11.6-14.8) H Platelet Count 709 K/UL (150-450) H Mean Platelet Volume 5.9 FL (6.5-10.1) L Neutrophils (%) (Auto) 60.9 % (45.0-75.0) Lymphocytes (%) (Auto) 27.4 % (20.0-45.0) Monocytes (%) (Auto) 8.1 % (1.0-10.0) Eosinophils (%) (Auto) 1.7 % (0.0-3.0) Basophils (%) (Auto) 1.9 % (0.0-2.0) Sodium Level 136 MMOL/L (136-145) Potassium Level 4.0 MMOL/L (3.5-5.1) Chloride Level 101 MMOL/L (98-107) Carbon Dioxide Level 26 MMOL/L (21-32) Anion Gap 9 mmol/L (5-15) Blood Urea Nitrogen 14 mg/dL (7-18) Creatinine 0.8 MG/DL (0.55-1.30) Estimat Glomerular Filtration Rate > 60 mL/min (>60) Glucose Level 119 MG/DL (74-106) H Calcium Level 9.9 MG/DL (8.5-10.1) Total Bilirubin 0.5 MG/DL (0.2-1.0) Aspartate Amino Transf (AST/SGOT) 52 U/L (15-37) H Alanine Aminotransferase (ALT/SGPT) 116 U/L (12-78) H Alkaline Phosphatase 123 U/L (46-116) H Total Protein 9.6 G/DL (6.4-8.2) H Albumin 2.7 G/DL (3.4-5.0) L Globulin 6.9 g/dL Albumin/Globulin Ratio 0.4 (1.0-2.7) L Current Medications Medications (Trade) Dose Ordered Sig/Kory Route PRN Reason Start Time Stop Time Status Last Admin Dose Admin Acetaminophen (Tylenol) 650 mg Q6H PRN GT Mild Pain/Temp > 100.5 04/16/19 17:30 05/11/19 17:29 04/30/19 01:08 Albuterol/ Ipratropium (Albuterol/ Ipratropium) 3 ml Q4H PRN HHN Shortness of Breath 04/28/19 22:45 05/03/19 22:44 04/29/19 22:22 Bisacodyl (Dulcolax) 10 mg DAILY ORAL 05/01/19 09:00 05/31/19 08:59 05/02/19 08:13 Dextrose (Dextrose 50%) 25 ml Q30M PRN IV Hypoglycemia 04/16/19 17:30 05/13/19 16:29 Dextrose (Dextrose 50%) 50 ml Q30M PRN IV Hypoglycemia 04/16/19 17:30 05/13/19 16:29 Docusate Sodium (Colace) 100 mg TWICE A DAY GT 05/01/19 18:00 05/31/19 17:59 05/02/19 08:10 Donepezil HCl (Aricept) 10 mg DAILY GT 04/17/19 09:00 05/12/19 08:59 05/02/19 08:10 Heparin Sodium (Porcine) (Heparin 5000 units/ml) 5,000 units EVERY 12 HOURS SUBQ 04/16/19 21:00 05/12/19 10:59 05/02/19 08:14 Insulin Aspart (NovoLOG) Q6HR SUBQ 04/16/19 18:00 05/13/19 17:59 05/01/19 23:59 Lactobacillus Acidophilus (Culturelle) 1 tab DAILY GT 04/17/19 09:00 05/12/19 08:59 05/02/19 08:10 Lactulose (Cephulac) 10 gm THREE TIMES A DAY GT 05/01/19 13:00 05/31/19 12:59 05/02/19 08:10 Lansoprazole (Prevacid) 30 mg DAILY GT 04/17/19 09:00 05/12/19 08:59 05/02/19 08:11 Lorazepam (Ativan 2mg/ml 1ml) 1 mg Q4H PRN IV Restlessness 04/28/19 12:15 05/05/19 12:14 05/02/19 01:14 Micafungin Sodium 100 mg/Dextrose 110 ml @ 110 mls/hr Q24H IVPB 04/30/19 12:00 05/07/19 11:59 05/01/19 12:31 Morphine Sulfate (Morphine Sulfate) 4 mg Q4H PRN IVP For Pain 05/01/19 18:00 05/06/19 17:59 Multivitamins (Multivitamins W/ Minerals 15ml Liquid) 15 ml DAILY GT 04/17/19 09:00 05/12/19 08:59 05/02/19 08:11 Ondansetron HCl (Zofran) 4 mg Q6H PRN GT Nausea & Vomiting 04/16/19 17:30 05/12/19 17:29 Phenytoin 300 mg/ Sodium Chloride 55 ml @ 110 mls/hr DAILY IV 04/17/19 09:00 05/17/19 08:59 05/01/19 10:12 Piperacillin Sod/ Tazobactam Sod 3.375 gm/Dextrose 110 ml @ 27.5 mls/hr EVERY 8 HOURS IVPB 04/30/19 22:00 05/07/19 21:59 05/02/19 05:15 Polyethylene Glycol (Miralax) 17 gm BEDTIME GT 05/01/19 21:00 05/31/19 20:59 05/01/19 20:53 Primidone (Mysoline) 100 mg QHS GT 04/16/19 21:00 05/12/19 20:59 05/01/19 20:53 Sodium Phosphate (Fleet's Sodium Phosl Enema) 133 ml BIDPRN PRN RECTAL Constipation 05/01/19 18:15 05/31/19 18:14 05/01/19 23:17 Trimethoprim/ Sulfamethoxazole 12 ml/Dextrose 562 ml @ 374.667 mls/hr [id number] BACTRIM IV 04/25/19 16:00 05/07/19 15:59 05/02/19 08:59 Verapamil HCl (Calan) 80 mg EVERY 8 HOURS GT 04/18/19 14:45 05/16/19 14:44 05/02/19 05:44 Rayshawn Soni MD May 02, 2019 10:41
[2019-05-02] MEDS: PHENYTOIN IV SCH (11:24)
[2019-05-02] MEDS: NS IV SCH (11:24)
[2019-05-02 12:00] VITALS: BP 119/85
--- NOTE | 2019-05-02 12:01 | Pulmonology Progress Note ---
Assessment/Plan Problems: (1) Sepsis (2) Nosocomial pneumonia (3) Chronic tachycardia (4) Epilepsy (5) Hereditary cerebellar ataxia (6) Cavitary lung disease (7) MD-Yulqiac-Yxrayc disease (8) Feeding by G-tube Assessment/Plan still tachy at 120 Yeast in Blood cultrures sputum has pseudomonas, pansensitive iv abx symptomatic treatment feeding by Gtube aspiration precaution Verapamil for chronic tachycardia, double the dose since, heart rate is low 100 monitor heart rate prbc prn Hem< 8 dvt prophylaxis. reviewed echo: normal EF Subjective ROS Limited/Unobtainable: Yes Constitutional: Reports: no symptoms Allergies: Coded Allergies: No Known Allergies (Unverified , 04/11/19) Objective Last 24 Hour Vital Signs Date Time Temp Pulse Resp B/P (MAP) Pulse Ox O2 Delivery O2 Flow Rate FiO2 05/02/19 09:05 Nasal Cannula 3.0 05/02/19 08:00 98.0 109 20 121/86 (98) 98 05/02/19 05:44 110 125/90 05/02/19 04:00 97.3 113 20 113/81 (92) 100 05/02/19 00:00 97.7 113 20 134/93 (107) 98 05/01/19 22:30 111 130/106 05/01/19 21:00 Nasal Cannula 3.0 05/01/19 20:33 93 Nasal Cannula 3.0 32 05/01/19 20:00 98.1 100 20 146/96 (113) 98 05/01/19 16:00 97.5 123 21 156/110 (125) 99 05/01/19 15:24 117 118/82 Intake and Output 05/01/19 05/02/19 19:00 07:00 Intake Total 820 ml 1619.500 ml Output Total 1300 ml 1200 ml Balance -480 ml 419.500 ml Free Water 100 ml 200 ml IV Total 699.500 ml Tube Feeding 720 ml 720 ml Output Urine Total 1300 ml 1200 ml # Bowel Movements 2 Objective General Appearance: no acute distress HEENT: normocephalic, anicteric Respiratory/Chest: chest wall non-tender, rhonchi Cardiovascular: normal peripheral pulses, normal rate, regular rhythm Abdomen: normal bowel sounds, soft, non tender Genitourinary: normal external genitalia Extremities: no cyanosis Laboratory Tests 05/01/19 16:12: White Blood Count 14.3H, Red Blood Count 4.09L, Hemoglobin 12.4L, Hematocrit 35.1L, Mean Corpuscular Volume 86, Mean Corpuscular Hemoglobin 30.4, Mean Corpuscular Hemoglobin Concent 35.4, Red Cell Distribution Width 18.7H, Platelet Count 709H, Mean Platelet Volume 5.9L, Neutrophils (%) (Auto) 60.9, Lymphocytes (%) (Auto) 27.4, Monocytes (%) (Auto) 8.1, Eosinophils (%) (Auto) 1.7, Basophils (%) (Auto) 1.9, Sodium Level 136, Potassium Level 4.0, Chloride Level 101, Carbon Dioxide Level 26, Anion Gap 9, Blood Urea Nitrogen 14, Creatinine 0.8, Estimat Glomerular Filtration Rate > 60, Glucose Level 119H, Calcium Level 9.9, Total Bilirubin 0.5, Aspartate Amino Transf (AST/SGOT) 52H, Alanine Aminotransferase (ALT/SGPT) 116H, Alkaline Phosphatase 123H, Total Protein 9.6H, Albumin 2.7L, Globulin 6.9, Albumin/Globulin Ratio 0.4L Current Medications Medications (Trade) Dose Ordered Sig/Kory Route PRN Reason Start Time Stop Time Status Last Admin Dose Admin Acetaminophen (Tylenol) 650 mg Q6H PRN GT Mild Pain/Temp > 100.5 04/16/19 17:30 05/11/19 17:29 04/30/19 01:08 Albuterol/ Ipratropium (Albuterol/ Ipratropium) 3 ml Q4H PRN HHN Shortness of Breath 04/28/19 22:45 05/03/19 22:44 04/29/19 22:22 Bisacodyl (Dulcolax) 10 mg DAILY ORAL 05/01/19 09:00 05/31/19 08:59 05/02/19 08:13 Dextrose (Dextrose 50%) 25 ml Q30M PRN IV Hypoglycemia 04/16/19 17:30 05/13/19 16:29 Dextrose (Dextrose 50%) 50 ml Q30M PRN IV Hypoglycemia 04/16/19 17:30 05/13/19 16:29 Docusate Sodium (Colace) 100 mg TWICE A DAY GT 05/01/19 18:00 05/31/19 17:59 05/02/19 08:10 Donepezil HCl (Aricept) 10 mg DAILY GT 04/17/19 09:00 05/12/19 08:59 05/02/19 08:10 Heparin Sodium (Porcine) (Heparin 5000 units/ml) 5,000 units EVERY 12 HOURS SUBQ 04/16/19 21:00 05/12/19 10:59 05/02/19 08:14 Insulin Aspart (NovoLOG) Q6HR SUBQ 04/16/19 18:00 05/13/19 17:59 05/01/19 23:59 Lactobacillus Acidophilus (Culturelle) 1 tab DAILY GT 04/17/19 09:00 05/12/19 08:59 05/02/19 08:10 Lactulose (Cephulac) 10 gm THREE TIMES A DAY GT 05/01/19 13:00 05/31/19 12:59 05/02/19 08:10 Lansoprazole (Prevacid) 30 mg DAILY GT 04/17/19 09:00 05/12/19 08:59 05/02/19 08:11 Lorazepam (Ativan 2mg/ml 1ml) 1 mg Q4H PRN IV Restlessness 04/28/19 12:15 05/05/19 12:14 05/02/19 01:14 Micafungin Sodium 100 mg/Dextrose 110 ml @ 110 mls/hr Q24H IVPB 04/30/19 12:00 05/07/19 11:59 05/01/19 12:31 Morphine Sulfate (Morphine Sulfate) 4 mg Q4H PRN IVP For Pain 05/01/19 18:00 05/06/19 17:59 Multivitamins (Multivitamins W/ Minerals 15ml Liquid) 15 ml DAILY GT 04/17/19 09:00 05/12/19 08:59 05/02/19 08:11 Ondansetron HCl (Zofran) 4 mg Q6H PRN GT Nausea & Vomiting 04/16/19 17:30 05/12/19 17:29 Phenytoin 300 mg/ Sodium Chloride 55 ml @ 110 mls/hr DAILY IV 04/17/19 09:00 05/17/19 08:59 05/02/19 11:24 Piperacillin Sod/ Tazobactam Sod 3.375 gm/Dextrose 110 ml @ 27.5 mls/hr EVERY 8 HOURS IVPB 04/30/19 22:00 05/07/19 21:59 05/02/19 05:15 Polyethylene Glycol (Miralax) 17 gm BEDTIME GT 05/01/19 21:00 05/31/19 20:59 05/01/19 20:53 Primidone (Mysoline) 100 mg QHS GT 04/16/19 21:00 05/12/19 20:59 05/01/19 20:53 Sodium Phosphate (Fleet's Sodium Phosl Enema) 133 ml BIDPRN PRN RECTAL Constipation 05/01/19 18:15 05/31/19 18:14 05/01/19 23:17 Trimethoprim/ Sulfamethoxazole 12 ml/Dextrose 562 ml @ 374.667 mls/hr [id number] BACTRIM IV 04/25/19 16:00 05/07/19 15:59 05/02/19 08:59 Verapamil HCl (Calan) 80 mg EVERY 8 HOURS GT 04/18/19 14:45 05/16/19 14:44 05/02/19 05:44 Carlos Sauer MD May 02, 2019 12:01
[2019-05-02] MEDS: Micafungin 100 MG in D5W 110 ML IVPB SCH (12:59)
--- NOTE | 2019-05-02 13:45 | NUR ---
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 97.3 HR 113 RR 20 B/P 125/90 3L NC WBC 14.3 IS: ZOSYN IV MICAFUNGIN IV VERAPAMIL GT HEPARIN SUBC DILANTIN IV MED/SURG STATUS
--- NOTE | 2019-05-02 14:15 | Progress Note ---
DATE: 05/02/2019 SUBJECTIVE: This is a 43-year-old male with sepsis. He does have some altered mental status, confusion, decline in cognition below his baseline, and altered mental status. That is why, his attending has requested daily psychiatric consultation for this patient. He still has altered mental status, confusion. That is why, he does require daily psychiatric consultation per request of his current . MENTAL STATUS EXAMINATION: This is a 43-year-old male. Appearance is disheveled. Attitude, irritable and agitated. Affect, guarded and restricted. Intellect poor. Mood, depressed and anxious. Motor activity, psychomotor agitation. Insight and judgment is poor. DIAGNOSIS: Major depressive disorder, mild, recurrent with psychotic features. PLAN: Treat this patient with psychotropic medication regimen consisting of Ativan 1 mg every 4 hours p.r.n. anxiety and agitation, Aricept 10 mg per G-tube daily. Provide him with 20 minutes of behavioral management. Osbaldo Bird M.D. DR: CHRISTOPHER JOB#: [id number] CC:
--- NOTE | 2019-05-02 15:20 | General Progress Note ---
Assessment/Plan Problem List: (1) Sickle cell anemia ICD Codes: D57.1 - Sickle-cell disease without crisis SNOMED: 791193627 (2) Sepsis ICD Codes: A41.9 - Sepsis, unspecified organism SNOMED: 14399646 (3) Epilepsy ICD Codes: G40.909 - Epilepsy, unspecified, not intractable, without status epilepticus SNOMED: 66799066 (4) Cavitary lung disease ICD Codes: J98.4 - Other disorders of lung SNOMED: 171039536 (5) ZS-Vdvcprf-Antoqb disease (6) Nosocomial pneumonia ICD Codes: J18.9 - Pneumonia, unspecified organism; Y95 - Nosocomial condition SNOMED: 846756935 Status: progressing Assessment/Plan: seizure sepsis no acute events anemia.check h/h no acute events abx per id Subjective ROS Limited/Unobtainable: Yes Allergies: Coded Allergies: No Known Allergies (Unverified , 04/11/19) Objective Last 24 Hour Vital Signs Date Time Temp Pulse Resp B/P (MAP) Pulse Ox O2 Delivery O2 Flow Rate FiO2 05/02/19 14:05 98 Nasal Cannula 3.0 32 05/02/19 12:00 98.2 111 18 119/85 (96) 99 05/02/19 09:05 Nasal Cannula 3.0 05/02/19 08:00 98.0 109 20 121/86 (98) 98 05/02/19 05:44 110 125/90 05/02/19 04:00 97.3 113 20 113/81 (92) 100 05/02/19 00:00 97.7 113 20 134/93 (107) 98 05/01/19 22:30 111 130/106 05/01/19 21:00 Nasal Cannula 3.0 05/01/19 20:33 93 Nasal Cannula 3.0 32 05/01/19 20:00 98.1 100 20 146/96 (113) 98 05/01/19 16:00 97.5 123 21 156/110 (125) 99 05/01/19 15:24 117 118/82 Intake and Output 05/01/19 05/02/19 19:00 07:00 Intake Total 820 ml 1619.500 ml Output Total 1300 ml 1200 ml Balance -480 ml 419.500 ml Free Water 100 ml 200 ml IV Total 699.500 ml Tube Feeding 720 ml 720 ml Output Urine Total 1300 ml 1200 ml # Bowel Movements 2 Laboratory Tests 05/01/19 16:12: White Blood Count 14.3H, Red Blood Count 4.09L, Hemoglobin 12.4L, Hematocrit 35.1L, Mean Corpuscular Volume 86, Mean Corpuscular Hemoglobin 30.4, Mean Corpuscular Hemoglobin Concent 35.4, Red Cell Distribution Width 18.7H, Platelet Count 709H, Mean Platelet Volume 5.9L, Neutrophils (%) (Auto) 60.9, Lymphocytes (%) (Auto) 27.4, Monocytes (%) (Auto) 8.1, Eosinophils (%) (Auto) 1.7, Basophils (%) (Auto) 1.9, Sodium Level 136, Potassium Level 4.0, Chloride Level 101, Carbon Dioxide Level 26, Anion Gap 9, Blood Urea Nitrogen 14, Creatinine 0.8, Estimat Glomerular Filtration Rate > 60, Glucose Level 119H, Calcium Level 9.9, Total Bilirubin 0.5, Aspartate Amino Transf (AST/SGOT) 52H, Alanine Aminotransferase (ALT/SGPT) 116H, Alkaline Phosphatase 123H, Total Protein 9.6H, Albumin 2.7L, Globulin 6.9, Albumin/Globulin Ratio 0.4L Height (Feet): 5 Height (Inches): 7.00 Weight (Pounds): 126 Cardiovascular: normal rate Respiratory/Chest: lungs clear Abdomen: soft Kenn Pritchett MD May 02, 2019 15:20
[2019-05-02] MEDS: Morphine Sulfate 4mg/ml Inj (IV USE ONLY) IVP PRN ×2 (15:30→21:58)
--- NOTE | 2019-05-02 15:31 | Diagnostic Imaging Report ---
Indication: Abdominal pain, abnormal liver function tests, abnormal white blood cell count, history of sickle cell disease Technique: Milligan-scale and duplex images of the upper abdomen were obtained Comparison: none Findings: Exam is somewhat limited. Patient is contracted with labored breathing and there is excess overlying bowel gas as well as a gastrostomy tube with surrounding bandages limiting acoustic windows. Gallbladder is filled with gallstones. No wall thickening or pericholecystic fluid. Sonographic Bowens's sign cannot be assessed; patient noncommunicative. Common bile duct measures 5 mm in diameter. No intrahepatic biliary ductal dilatation. Liver demonstrates diffusely increased echogenicity, consistent with diffuse hepatocellular disease, most likely fatty change. Portal vein and hepatic veins are patent. Pancreas is unremarkable. Spleen is unremarkable. Left kidney measures 9.3 cm in length. Right kidney measures 10 cm length. Both kidneys demonstrate slightly increased echogenicity. There is no hydronephrosis. No focal abnormality . Abdominal aorta is obscured by bowel gas . Impression: Cholelithiasis. Negative for dilated bile ducts Slightly increased bilateral renal echogenicity, likely indicating medical renal disease Note inability to visualize the abdominal aorta
--- NOTE | 2019-05-02 15:50 | NUR ---
NURSE NOTES: Patient moaning,moving around in bed,ask patient if he is having pain,patient nods head,pain medication given as ordered.Dr Esqueda called regarding Abdominal Ultrasound results.Will monitor.
[2019-05-02 16:00] VITALS: BP 139/93
[2019-05-02] MEDS ORDERED: NS 275ml ONE (16:55)
[2019-05-02] MEDS ORDERED: Sterile Water For Irrig 2000ml IRRIG ONE ×3 (16:55→16:56)
[2019-05-02] MEDS ORDERED: NS 500ML ONE (16:56)
--- NOTE | 2019-05-02 17:23 | General Progress Note ---
Assessment/Plan Assessment/Plan: (1) Sacral decubitus ulcer (2) Dementia (3) Encephalopathy (4) Sepsis (5) Cerebral Ataxia (6) Sickle cell disease Pt will be continued on Morphine D/w Dr. Palomino and he concurred. Subjective Date patient seen: May 02, 2019 Time patient seen: 05:00 - pm ROS Limited/Unobtainable: Yes Allergies: Coded Allergies: No Known Allergies (Unverified , 04/11/19) Subjective Patient showing no signs of pain or distress. Morphine one dose administered in the last 24hrs. Objective Last 24 Hour Vital Signs Date Time Temp Pulse Resp B/P (MAP) Pulse Ox O2 Delivery O2 Flow Rate FiO2 05/02/19 15:24 122 138/98 05/02/19 14:05 98 Nasal Cannula 3.0 32 05/02/19 12:00 98.2 111 18 119/85 (96) 99 05/02/19 09:05 Nasal Cannula 3.0 05/02/19 08:00 98.0 109 20 121/86 (98) 98 05/02/19 05:44 110 125/90 05/02/19 04:00 97.3 113 20 113/81 (92) 100 05/02/19 00:00 97.7 113 20 134/93 (107) 98 05/01/19 22:30 111 130/106 05/01/19 21:00 Nasal Cannula 3.0 05/01/19 20:33 93 Nasal Cannula 3.0 32 05/01/19 20:00 98.1 100 20 146/96 (113) 98 Intake and Output 05/01/19 05/02/19 19:00 07:00 Intake Total 820 ml 1619.500 ml Output Total 1300 ml 1200 ml Balance -480 ml 419.500 ml Free Water 100 ml 200 ml IV Total 699.500 ml Tube Feeding 720 ml 720 ml Output Urine Total 1300 ml 1200 ml # Bowel Movements 2 Height (Feet): 5 Height (Inches): 7.00 Weight (Pounds): 126 Objective General Appearance: no apparent distress EENT: normal ENT inspection Neck: non-tender Cardiovascular: normal rate Respiratory/Chest: decreased breath sounds Abdomen: other - Gtube noted Extremities: swelling Edema: trace edema Neurologic: responsive Skin: warm/dry Henrry Allison May 02, 2019 17:23
--- NOTE | 2019-05-02 18:00 | NUR ---
NURSE NOTES: Patient resting comfortably at this time,patient had BM,skin care given,oral care given.Bed alarm on.
[2019-05-02 20:00] VITALS: BP 124/92
--- NOTE | 2019-05-02 20:11 | NUR ---
HAND-OFF: Report given to Talia WITT.
--- NOTE | 2019-05-02 20:15 | NUR ---
NURSE NOTES: Patient opens eyes when named called,respirations unlabored.Patient GT patent, plugged, no feed, NPO at this time, no residual noted at this time. Garcia catheter is in place and draining gagan color urine. HOB is elevated. Bed locked, lowest position, side rails x2, call light in reach Bed alarm is on.
[2019-05-02] MEDS: Miralax 17gm pkt GT SCH (21:00)
[2019-05-03] VITALS (7 sets, daily range): BP systolic 117–138; BP diastolic 83–91
[2019-05-03] MEDS: TRIMETHOPRIM IV SCH ×4 (02:39→23:29)
[2019-05-03] MEDS: SULFAMETHOXAZOLE IV SCH ×4 (02:39→23:29)
[2019-05-03] MEDS: D5W IV SCH ×4 (02:39→23:29)
[2019-05-03] MEDS: NovoLOG Insulin Flexpen SUBQ SCH ×5 (06:00→23:33)
[2019-05-03] MEDS: Verapamil 80mg tab GT SCH ×3 (06:00→21:06)
[2019-05-03] MEDS: Piperacillin/Tazobactam 3.375 GM in D5W 110 ML IVPB SCH ×3 (06:31→21:23)
[2019-05-03 07:53] LABS: BASOPHILS % (AUTO) 1.5 % (0.0-2.0); EOSINOPHILS % (AUTO) 1.8 % (0.0-3.0); HEMATOCRIT 35.7 % (42.0-52.0); HEMOGLOBIN 12.7 G/DL (14.2-18.0); MEAN CORPUSCULAR VOLUME 86 FL (80-99); MONOCYTES % (AUTO) 6.8 % (1.0-10.0); NEUTROPHILS % (AUTO) 64.8 % (45.0-75.0); PLATELET COUNT 706 K/UL (150-450); RED BLOOD COUNT 4.16 M/UL (4.70-6.10); RED CELL DISTRIBUTION WIDTH 18.2 % (11.6-14.8); WHITE BLOOD COUNT 12.4 K/UL (4.8-10.8)
--- NOTE | 2019-05-03 08:00 | NUR ---
NURSE NOTES: Patient opens eyes when name called,key catheter in place and draining clear gagan urine.HOB elevated,G-tube feedings to be restarted.
--- NOTE | 2019-05-03 08:05 | NUR ---
HAND-OFF: Report given to EDUAR Trejo.
[2019-05-03 08:14] LABS: ALANINE AMINOTRANSFERASE 120 U/L (12-78); ALBUMIN 2.7 G/DL (3.4-5.0); ALBUMIN/GLOBULIN RATIO 0.4 (1.0-2.7); ALKALINE PHOSPHATASE 108 U/L (46-116); ANION GAP 10 mmol/L (5-15); ASPARTATE AMINO TRANSFERASE 54 U/L (15-37); BILIRUBIN,TOTAL 0.5 MG/DL (0.2-1.0); BLOOD UREA NITROGEN 12 mg/dL (7-18); CALCIUM 9.9 MG/DL (8.5-10.1); CARBON DIOXIDE 28 MMOL/L (21-32); CHLORIDE 103 MMOL/L (98-107); CREATININE 0.6 MG/DL (0.55-1.30); POTASSIUM 4.4 MMOL/L (3.5-5.1); SODIUM 141 MMOL/L (136-145)
[2019-05-03] MEDS: Donepezil 10mg tab GT SCH (08:55)
[2019-05-03] MEDS: Lactulose 10gm/15ml UDC GT SCH ×3 (08:55→18:05)
[2019-05-03] MEDS: Lactobacillus-GG tablet GT SCH (08:55)
[2019-05-03] MEDS: Bisacodyl EC 5mg tab ORAL SCH (08:55)
[2019-05-03] MEDS: Docusate 100mg/10ml Liq GT SCH ×2 (08:55→18:05)
[2019-05-03] MEDS: Multivitamins W/Minerals 15 ML UDC GT SCH (08:55)
[2019-05-03] MEDS: Heparin 5000 units/ml inj SUBQ SCH ×2 (08:57→20:27)
--- NOTE | 2019-05-03 09:14 | Pulmonology Progress Note ---
Assessment/Plan Problems: (1) Fungemia (2) Sepsis (3) Nosocomial pneumonia (4) Chronic tachycardia (5) Epilepsy (6) Hereditary cerebellar ataxia (7) Cavitary lung disease (8) TA-Rptyjvq-Dsblpg disease (9) Feeding by G-tube Assessment/Plan still tachy at 120 Yeast in Blood cultrures sputum has pseudomonas, pansensitive iv abx symptomatic treatment feeding by Gtube aspiration precaution Verapamil for chronic tachycardia, double the dose since, heart rate is low 100 monitor heart rate prbc prn Hem< 8 dvt prophylaxis. reviewed echo: normal EF Subjective Allergies: Coded Allergies: No Known Allergies (Unverified , 04/11/19) Objective Last 24 Hour Vital Signs Date Time Temp Pulse Resp B/P (MAP) Pulse Ox O2 Delivery O2 Flow Rate FiO2 05/03/19 08:09 98 Nasal Cannula 3.0 32 05/03/19 08:00 97.7 118 18 122/83 (96) 99 05/03/19 06:00 109 130/90 05/03/19 04:00 97.7 109 22 130/90 (103) 99 05/03/19 00:00 98.4 119 24 117/83 (94) 99 05/02/19 21:42 101 124/92 05/02/19 21:00 Nasal Cannula 3.0 05/02/19 20:53 101 22 97 Nasal Cannula 3.0 32 05/02/19 20:53 97 Nasal Cannula 3.0 32 05/02/19 20:00 98.2 127 22 124/92 (103) 97 05/02/19 18:06 105 05/02/19 16:00 98.1 122 20 139/93 (108) 98 05/02/19 15:24 122 138/98 05/02/19 14:05 98 Nasal Cannula 3.0 32 05/02/19 12:00 98.2 111 18 119/85 (96) 99 Intake and Output 05/02/19 05/03/19 19:00 07:00 Intake Total 307.5 ml Output Total 1200 ml 800 ml Balance -892.5 ml -800 ml Free Water 100 ml IV Total 27.5 ml Tube Feeding 180 ml Output Urine Total 1200 ml 800 ml # Voids 1 # Bowel Movements 1 Objective General Appearance: no acute distress HEENT: normocephalic, anicteric Respiratory/Chest: chest wall non-tender, rhonchi Cardiovascular: normal peripheral pulses, normal rate, regular rhythm Abdomen: normal bowel sounds, soft, non tender Genitourinary: normal external genitalia Extremities: no cyanosis Laboratory Tests 05/03/19 06:00: White Blood Count 12.4H, Red Blood Count 4.16L, Hemoglobin 12.7L, Hematocrit 35.7L, Mean Corpuscular Volume 86, Mean Corpuscular Hemoglobin 30.6, Mean Corpuscular Hemoglobin Concent 35.7, Red Cell Distribution Width 18.2H, Platelet Count 706H, Mean Platelet Volume 5.5L, Neutrophils (%) (Auto) 64.8, Lymphocytes (%) (Auto) 25.0, Monocytes (%) (Auto) 6.8, Eosinophils (%) (Auto) 1.8, Basophils (%) (Auto) 1.5, Sodium Level 141, Potassium Level 4.4, Chloride Level 103, Carbon Dioxide Level 28, Anion Gap 10, Blood Urea Nitrogen 12, Creatinine 0.6, Estimat Glomerular Filtration Rate > 60, Glucose Level 72L, Calcium Level 9.9, Total Bilirubin 0.5, Aspartate Amino Transf (AST/SGOT) 54H, Alanine Aminotransferase (ALT/SGPT) 120H, Alkaline Phosphatase 108, Total Protein 9.0H, Albumin 2.7L, Globulin 6.3, Albumin/Globulin Ratio 0.4L Current Medications Medications (Trade) Dose Ordered Sig/Kory Route PRN Reason Start Time Stop Time Status Last Admin Dose Admin Acetaminophen (Tylenol) 650 mg Q6H PRN GT Mild Pain/Temp > 100.5 04/16/19 17:30 05/11/19 17:29 04/30/19 01:08 Albuterol/ Ipratropium (Albuterol/ Ipratropium) 3 ml Q4H PRN HHN Shortness of Breath 04/28/19 22:45 05/03/19 22:44 04/29/19 22:22 Bisacodyl (Dulcolax) 10 mg DAILY ORAL 05/01/19 09:00 05/31/19 08:59 05/03/19 08:55 Dextrose (Dextrose 50%) 25 ml Q30M PRN IV Hypoglycemia 04/16/19 17:30 05/13/19 16:29 Dextrose (Dextrose 50%) 50 ml Q30M PRN IV Hypoglycemia 04/16/19 17:30 05/13/19 16:29 Docusate Sodium (Colace) 100 mg TWICE A DAY GT 05/01/19 18:00 05/31/19 17:59 05/03/19 08:55 Donepezil HCl (Aricept) 10 mg DAILY GT 04/17/19 09:00 05/12/19 08:59 05/03/19 08:55 Heparin Sodium (Porcine) (Heparin 5000 units/ml) 5,000 units EVERY 12 HOURS SUBQ 04/16/19 21:00 05/12/19 10:59 05/03/19 08:57 Insulin Aspart (NovoLOG) Q6HR SUBQ 04/16/19 18:00 05/13/19 17:59 05/01/19 23:59 Lactobacillus Acidophilus (Culturelle) 1 tab DAILY GT 04/17/19 09:00 05/12/19 08:59 05/03/19 08:55 Lactulose (Cephulac) 10 gm THREE TIMES A DAY GT 05/01/19 13:00 05/31/19 12:59 05/03/19 08:55 Lansoprazole (Prevacid) 30 mg DAILY GT 04/17/19 09:00 05/12/19 08:59 05/03/19 08:55 Lorazepam (Ativan 2mg/ml 1ml) 1 mg Q4H PRN IV Restlessness 04/28/19 12:15 05/05/19 12:14 05/02/19 01:14 Micafungin Sodium 100 mg/Dextrose 110 ml @ 110 mls/hr Q24H IVPB 04/30/19 12:00 05/07/19 11:59 05/02/19 12:59 Morphine Sulfate (Morphine Sulfate) 4 mg Q4H PRN IVP Moderate Pain (Pain Scale 4-6) 05/03/19 02:30 05/06/19 17:59 Morphine Sulfate (Morphine Sulfate) 6 mg Q4H PRN IVP Severe Pain (Pain Scale 7-10) 05/03/19 02:15 05/10/19 02:14 Multivitamins (Multivitamins W/ Minerals 15ml Liquid) 15 ml DAILY GT 04/17/19 09:00 05/12/19 08:59 05/03/19 08:55 Ondansetron HCl (Zofran) 4 mg Q6H PRN GT Nausea & Vomiting 04/16/19 17:30 05/12/19 17:29 Phenytoin 300 mg/ Sodium Chloride 55 ml @ 110 mls/hr DAILY IV 04/17/19 09:00 05/17/19 08:59 05/02/19 11:24 Piperacillin Sod/ Tazobactam Sod 3.375 gm/Dextrose 110 ml @ 27.5 mls/hr EVERY 8 HOURS IVPB 04/30/19 22:00 05/07/19 21:59 05/03/19 06:31 Polyethylene Glycol (Miralax) 17 gm BEDTIME GT 05/01/19 21:00 05/31/19 20:59 05/01/19 20:53 Primidone (Mysoline) 100 mg QHS GT 04/16/19 21:00 05/12/19 20:59 05/02/19 21:42 Sodium Phosphate (Fleet's Sodium Phosl Enema) 133 ml BIDPRN PRN RECTAL Constipation 05/01/19 18:15 05/31/19 18:14 05/01/19 23:17 Trimethoprim/ Sulfamethoxazole 12 ml/Dextrose 562 ml @ 374.667 mls/hr [id number] BACTRIM IV 04/25/19 16:00 05/07/19 15:59 05/03/19 08:55 Verapamil HCl (Calan) 80 mg EVERY 8 HOURS GT 04/18/19 14:45 05/16/19 14:44 05/03/19 06:00 Carlos Sauer MD May 03, 2019 09:14
--- NOTE | 2019-05-03 09:53 | General Progress Note ---
Assessment/Plan Assessment/Plan: 1. History of CVA. 2. Dysphagia with G-tube. 3. Hypertension. 4. GERD. 5. Epilepsy. 6. Peptic ulcer disease. 7.constipation 8. Elevated LFTS laxative abd us>>> reviewed>>> gallstones repeat labs Subjective ROS Limited/Unobtainable: No Allergies: Coded Allergies: No Known Allergies (Unverified , 04/11/19) Objective Last 24 Hour Vital Signs Date Time Temp Pulse Resp B/P (MAP) Pulse Ox O2 Delivery O2 Flow Rate FiO2 05/03/19 09:27 Nasal Cannula 3.0 05/03/19 08:09 98 Nasal Cannula 3.0 32 05/03/19 08:00 97.7 118 18 122/83 (96) 99 05/03/19 06:00 109 130/90 05/03/19 04:00 97.7 109 22 130/90 (103) 99 05/03/19 00:00 98.4 119 24 117/83 (94) 99 05/02/19 21:42 101 124/92 05/02/19 21:00 Nasal Cannula 3.0 05/02/19 20:53 101 22 97 Nasal Cannula 3.0 32 05/02/19 20:53 97 Nasal Cannula 3.0 32 05/02/19 20:00 98.2 127 22 124/92 (103) 97 05/02/19 18:06 105 05/02/19 16:00 98.1 122 20 139/93 (108) 98 05/02/19 15:24 122 138/98 05/02/19 14:05 98 Nasal Cannula 3.0 32 05/02/19 12:00 98.2 111 18 119/85 (96) 99 Intake and Output 05/02/19 05/03/19 19:00 07:00 Intake Total 307.5 ml Output Total 1200 ml 800 ml Balance -892.5 ml -800 ml Free Water 100 ml IV Total 27.5 ml Tube Feeding 180 ml Output Urine Total 1200 ml 800 ml # Voids 1 # Bowel Movements 1 Laboratory Tests 05/03/19 06:00: White Blood Count 12.4H, Red Blood Count 4.16L, Hemoglobin 12.7L, Hematocrit 35.7L, Mean Corpuscular Volume 86, Mean Corpuscular Hemoglobin 30.6, Mean Corpuscular Hemoglobin Concent 35.7, Red Cell Distribution Width 18.2H, Platelet Count 706H, Mean Platelet Volume 5.5L, Neutrophils (%) (Auto) 64.8, Lymphocytes (%) (Auto) 25.0, Monocytes (%) (Auto) 6.8, Eosinophils (%) (Auto) 1.8, Basophils (%) (Auto) 1.5, Sodium Level 141, Potassium Level 4.4, Chloride Level 103, Carbon Dioxide Level 28, Anion Gap 10, Blood Urea Nitrogen 12, Creatinine 0.6, Estimat Glomerular Filtration Rate > 60, Glucose Level 72L, Calcium Level 9.9, Total Bilirubin 0.5, Aspartate Amino Transf (AST/SGOT) 54H, Alanine Aminotransferase (ALT/SGPT) 120H, Alkaline Phosphatase 108, Total Protein 9.0H, Albumin 2.7L, Globulin 6.3, Albumin/Globulin Ratio 0.4L Height (Feet): 5 Height (Inches): 7.00 Weight (Pounds): 124 General Appearance: lethargic EENT: normal ENT inspection Neck: supple Cardiovascular: normal rate Respiratory/Chest: decreased breath sounds Abdomen: normal bowel sounds, non tender, soft Extremities: non-tender Faizan Esqueda MD May 03, 2019 09:53
[2019-05-03] MEDS: PHENYTOIN IV SCH (10:18)
[2019-05-03] MEDS: NS IV SCH (10:18)
--- NOTE | 2019-05-03 10:39 | General Progress Note ---
Assessment/Plan Problem List: (1) Sickle cell anemia ICD Codes: D57.1 - Sickle-cell disease without crisis SNOMED: 253910152 (2) Sepsis ICD Codes: A41.9 - Sepsis, unspecified organism SNOMED: 48112104 (3) Epilepsy ICD Codes: G40.909 - Epilepsy, unspecified, not intractable, without status epilepticus SNOMED: 26038531 (4) Cavitary lung disease ICD Codes: J98.4 - Other disorders of lung SNOMED: 604139664 (5) TY-Pkyyjwq-Txzwga disease (6) Nosocomial pneumonia ICD Codes: J18.9 - Pneumonia, unspecified organism; Y95 - Nosocomial condition SNOMED: 389499057 Assessment/Plan: sick cell anemia seizure sepsis pna improving reviewed chart and labs and meds chronic pain Subjective ROS Limited/Unobtainable: Yes Allergies: Coded Allergies: No Known Allergies (Unverified , 04/11/19) Objective Last 24 Hour Vital Signs Date Time Temp Pulse Resp B/P (MAP) Pulse Ox O2 Delivery O2 Flow Rate FiO2 05/03/19 09:27 Nasal Cannula 3.0 05/03/19 08:09 98 Nasal Cannula 3.0 32 05/03/19 08:00 97.7 118 18 122/83 (96) 99 05/03/19 06:00 109 130/90 05/03/19 04:00 97.7 109 22 130/90 (103) 99 05/03/19 00:00 98.4 119 24 117/83 (94) 99 05/02/19 21:42 101 124/92 05/02/19 21:00 Nasal Cannula 3.0 05/02/19 20:53 101 22 97 Nasal Cannula 3.0 32 05/02/19 20:53 97 Nasal Cannula 3.0 32 05/02/19 20:00 98.2 127 22 124/92 (103) 97 05/02/19 18:06 105 05/02/19 16:00 98.1 122 20 139/93 (108) 98 05/02/19 15:24 122 138/98 05/02/19 14:05 98 Nasal Cannula 3.0 32 05/02/19 12:00 98.2 111 18 119/85 (96) 99 Intake and Output 05/02/19 05/03/19 18:59 06:59 Intake Total 367.5 ml Output Total 1200 ml 800 ml Balance -832.5 ml -800 ml Free Water 100 ml IV Total 27.5 ml Tube Feeding 240 ml Output Urine Total 1200 ml 800 ml # Voids 1 # Bowel Movements 1 Laboratory Tests 05/03/19 06:00: White Blood Count 12.4H, Red Blood Count 4.16L, Hemoglobin 12.7L, Hematocrit 35.7L, Mean Corpuscular Volume 86, Mean Corpuscular Hemoglobin 30.6, Mean Corpuscular Hemoglobin Concent 35.7, Red Cell Distribution Width 18.2H, Platelet Count 706H, Mean Platelet Volume 5.5L, Neutrophils (%) (Auto) 64.8, Lymphocytes (%) (Auto) 25.0, Monocytes (%) (Auto) 6.8, Eosinophils (%) (Auto) 1.8, Basophils (%) (Auto) 1.5, Sodium Level 141, Potassium Level 4.4, Chloride Level 103, Carbon Dioxide Level 28, Anion Gap 10, Blood Urea Nitrogen 12, Creatinine 0.6, Estimat Glomerular Filtration Rate > 60, Glucose Level 72L, Calcium Level 9.9, Total Bilirubin 0.5, Aspartate Amino Transf (AST/SGOT) 54H, Alanine Aminotransferase (ALT/SGPT) 120H, Alkaline Phosphatase 108, Total Protein 9.0H, Albumin 2.7L, Globulin 6.3, Albumin/Globulin Ratio 0.4L Height (Feet): 5 Height (Inches): 7.00 Weight (Pounds): 124 Cardiovascular: normal rate Respiratory/Chest: lungs clear Abdomen: soft Kenn Pritchett MD May 03, 2019 10:39
[2019-05-03] MEDS: Micafungin 100 MG in D5W 110 ML IVPB SCH (12:33)
[2019-05-03] MEDS: Morphine Sulfate 4mg/ml Inj (IV USE ONLY) IVP PRN ×2 (12:46→20:26)
--- NOTE | 2019-05-03 19:00 | NUR ---
NURSE NOTES: Patient required deep suctioning, at times oral care given,skin care.tolerating G-tube feedings. HOB is elevated,Bed alarm on.
--- NOTE | 2019-05-03 19:40 | NUR ---
HAND-OFF: Report given to Cristine WITT.
--- NOTE | 2019-05-03 19:42 | General Progress Note ---
Assessment/Plan Assessment/Plan: (1) Sacral decubitus ulcer (2) Dementia (3) Encephalopathy (4) Sepsis (5) Cerebral Ataxia (6) Sickle cell disease Pt will be continued on Morphine D/w Dr. Palomino and he concurred. Subjective Date patient seen: May 03, 2019 Time patient seen: 07:00 - pm ROS Limited/Unobtainable: Yes Allergies: Coded Allergies: No Known Allergies (Unverified , 04/11/19) Subjective Patient is in bed and is comfortable. He has been c/o pain and received one dose of Morphine 4 mg in the last 24hrs. No signs of pain or distress at this time. Was started on Morphine 6mg IV Q4H PRN severe pain. Objective Last 24 Hour Vital Signs Date Time Temp Pulse Resp B/P (MAP) Pulse Ox O2 Delivery O2 Flow Rate FiO2 05/03/19 16:00 98.4 115 18 138/83 (101) 95 05/03/19 15:25 121 138/83 05/03/19 13:31 97.7 05/03/19 12:00 97.8 116 18 125/84 (98) 98 05/03/19 09:27 Nasal Cannula 3.0 05/03/19 08:09 98 Nasal Cannula 3.0 32 05/03/19 08:00 97.7 118 18 122/83 (96) 99 05/03/19 06:00 109 130/90 05/03/19 04:00 97.7 109 22 130/90 (103) 99 05/03/19 00:00 98.4 119 24 117/83 (94) 99 05/02/19 21:42 101 124/92 05/02/19 21:00 Nasal Cannula 3.0 05/02/19 20:53 101 22 97 Nasal Cannula 3.0 32 05/02/19 20:53 97 Nasal Cannula 3.0 32 05/02/19 20:00 98.2 127 22 124/92 (103) 97 Intake and Output 05/02/19 05/03/19 19:00 07:00 Intake Total 307.5 ml Output Total 1200 ml 800 ml Balance -892.5 ml -800 ml Free Water 100 ml IV Total 27.5 ml Tube Feeding 180 ml Output Urine Total 1200 ml 800 ml # Voids 1 # Bowel Movements 1 Laboratory Tests 1/1/20 06:00: White Blood Count 12.4H, Red Blood Count 4.16L, Hemoglobin 12.7L, Hematocrit 35.7L, Mean Corpuscular Volume 86, Mean Corpuscular Hemoglobin 30.6, Mean Corpuscular Hemoglobin Concent 35.7, Red Cell Distribution Width 18.2H, Platelet Count 706H, Mean Platelet Volume 5.5L, Neutrophils (%) (Auto) 64.8, Lymphocytes (%) (Auto) 25.0, Monocytes (%) (Auto) 6.8, Eosinophils (%) (Auto) 1.8, Basophils (%) (Auto) 1.5, Sodium Level 141, Potassium Level 4.4, Chloride Level 103, Carbon Dioxide Level 28, Anion Gap 10, Blood Urea Nitrogen 12, Creatinine 0.6, Estimat Glomerular Filtration Rate > 60, Glucose Level 72L, Calcium Level 9.9, Total Bilirubin 0.5, Aspartate Amino Transf (AST/SGOT) 54H, Alanine Aminotransferase (ALT/SGPT) 120H, Alkaline Phosphatase 108, Total Protein 9.0H, Albumin 2.7L, Globulin 6.3, Albumin/Globulin Ratio 0.4L Height (Feet): 5 Height (Inches): 7.00 Weight (Pounds): 124 Objective General Appearance: no apparent distress EENT: normal ENT inspection Neck: non-tender Cardiovascular: normal rate Respiratory/Chest: decreased breath sounds Abdomen: other - Gtube noted Extremities: swelling Edema: trace edema Neurologic: responsive Skin: warm/dry Henrry Allison May 03, 2019 19:41
--- NOTE | 2019-05-03 19:45 | Progress Note ---
DATE: 05/03/2019 SUBJECTIVE: This is a 43-year-old male patient. He is very confused, disorganized, decline in cognition below his baseline. That is why his attending physician has requested daily psychiatric consultation respiratory insufficiency. MENTAL STATUS EXAMINATION: This is a 43-year-old male. Appearance is disheveled. Attitude, irritable and agitated. Affect, guarded and restricted. Intellect poor. Mood, depressed and anxious. Motor activity, psychomotor agitation. Insight and judgment are poor. DIAGNOSIS: Major depressive disorder, mild, recurrent with psychotic features. PLAN: Treat the patient with Ativan 1 mg every 4 hours p.r.n. anxiety and agitation and Aricept 10 mg p.o. daily. 20 minutes of behavioral management provided. Chart was reviewed. Discussed with staff. Seen and assessed at bedside. Osbaldo Bird M.D. DR: CHRISTOPHER JOB#: [id number] CC:
--- NOTE | 2019-05-03 19:55 | NUR ---
NURSE NOTES: Patient in bed, on 3LPM nasal cannula, with Gtube connected to feeding. With 2 IV access on the left forearm. RT at bedside. Call light in reach. Bed in lowest, lock engaged and alarm on. Will continue to monitor.
[2019-05-03] MEDS: Miralax 17gm pkt GT SCH (21:09)
[2019-05-03] MEDS: LORazepam Inj 2mg/ml 1ml IV PRN (22:37)
[2019-05-04] VITALS: BP 107/70
--- NOTE | 2019-05-04 00:49 | NUR ---
NURSE NOTES: Duoneb order was dc automatically because it has reached [address] Ortega made aware. Waiting for call back.
[2019-05-04] MEDS: Morphine Sulfate 4mg/ml Inj (IV USE ONLY) IVP PRN ×3 (02:10→18:05)
[2019-05-04 04:00] VITALS: BP 117/86
[2019-05-04] MEDS: Piperacillin/Tazobactam 3.375 GM in D5W 110 ML IVPB SCH ×3 (04:59→21:33)
[2019-05-04] MEDS: Verapamil 80mg tab GT SCH ×3 (05:03→21:24)
[2019-05-04] MEDS: NovoLOG Insulin Flexpen SUBQ SCH ×4 (05:04→23:36)
--- NOTE | 2019-05-04 05:49 | NUR ---
NURSE NOTES: Called Dr. Pritchett for patient's blood sugar.
[2019-05-04 06:13] LABS: BASOPHILS % (AUTO) 1.4 % (0.0-2.0); EOSINOPHILS % (AUTO) 1.7 % (0.0-3.0); HEMATOCRIT 32.1 % (42.0-52.0); HEMOGLOBIN 11.4 G/DL (14.2-18.0); LYMPHOCYTES % (AUTO) 24.8 % (20.0-45.0); MEAN CORPUSCULAR VOLUME 86 FL (80-99); MONOCYTES % (AUTO) 7.6 % (1.0-10.0); NEUTROPHILS % (AUTO) 64.5 % (45.0-75.0); PLATELET COUNT 616 K/UL (150-450); RED BLOOD COUNT 3.72 M/UL (4.70-6.10); RED CELL DISTRIBUTION WIDTH 17.8 % (11.6-14.8); WHITE BLOOD COUNT 11.5 K/UL (4.8-10.8)
--- NOTE | 2019-05-04 06:49 | NUR ---
NURSE NOTES: Called brother for the GAGAN consent but he didn't have idea that the patient is in the hospital. He wanted to speak to the doctor first what's going on with the patient before doing the consent. Charge nurse made aware.
--- NOTE | 2019-05-04 06:51 | NUR ---
NURSE NOTES: Kept patient on NPO post midnight.
[2019-05-04 07:04] LABS: ALANINE AMINOTRANSFERASE 93 U/L (12-78); ALBUMIN 2.5 G/DL (3.4-5.0); ALBUMIN/GLOBULIN RATIO 0.4 (1.0-2.7); ALKALINE PHOSPHATASE 96 U/L (46-116); ANION GAP 9 mmol/L (5-15); ASPARTATE AMINO TRANSFERASE 37 U/L (15-37); BILIRUBIN,TOTAL 0.4 MG/DL (0.2-1.0); BLOOD UREA NITROGEN 10 mg/dL (7-18); CALCIUM 9.1 MG/DL (8.5-10.1); CARBON DIOXIDE 27 MMOL/L (21-32); CHLORIDE 104 MMOL/L (98-107); CREATININE 0.6 MG/DL (0.55-1.30); POTASSIUM 4.1 MMOL/L (3.5-5.1); SODIUM 140 MMOL/L (136-145)
--- NOTE | 2019-05-04 07:15 | NUR ---
NURSE NOTES: NURSE NOTES: Patient's brother, Salomón Kirby gave consent for GAGAN. Witnessed by EDUAR Benavides.
--- NOTE | 2019-05-04 07:35 | NUR ---
NURSE NOTES: Received patient on bed, asleep. IV intact and patent. Garcia intact and patent. Bed in locked position, call light in reach. No signs of respiratory distress or pain. Room board updated, will continue to monitor.
--- NOTE | 2019-05-04 07:36 | NUR ---
HAND-OFF: Report given to EDUAR Tabares.
[2019-05-04 08:00] VITALS: BP 108/79
[2019-05-04] MEDS: Lactulose 10gm/15ml UDC GT SCH ×3 (09:00→18:03)
[2019-05-04] MEDS: Lactobacillus-GG tablet GT SCH (09:00)
[2019-05-04] MEDS: Multivitamins W/Minerals 15 ML UDC GT SCH (09:00)
[2019-05-04] MEDS: Donepezil 10mg tab GT SCH (09:00)
[2019-05-04] MEDS: Bisacodyl EC 5mg tab ORAL SCH (09:00)
[2019-05-04] MEDS: Docusate 100mg/10ml Liq GT SCH ×2 (09:00→18:03)
[2019-05-04] MEDS: Heparin 5000 units/ml inj SUBQ SCH ×2 (09:00→20:28)
--- NOTE | 2019-05-04 09:57 | General Progress Note ---
Assessment/Plan Assessment/Plan: (1) Sacral decubitus ulcer (2) Dementia (3) Encephalopathy (4) Sepsis (5) Cerebral Ataxia (6) Sickle cell disease Pt will be continued on Morphine D/w Dr. Palomino and he concurred. Subjective Date patient seen: May 04, 2019 Time patient seen: 09:30 - am ROS Limited/Unobtainable: Yes Allergies: Coded Allergies: No Known Allergies (Unverified , 04/11/19) Subjective Patient showing no signs of pain or distress. Has received 3 doses of Morphine 4mg 0 doses of Morphine 6mg. Objective Last 24 Hour Vital Signs Date Time Temp Pulse Resp B/P (MAP) Pulse Ox O2 Delivery O2 Flow Rate FiO2 05/04/19 07:25 95 Nasal Cannula 3.0 32 05/04/19 05:03 102 115/82 05/04/19 04:00 98.3 104 24 117/86 (96) 98 05/04/19 00:00 98.6 105 24 107/70 (82) 98 05/03/19 23:03 98 Nasal Cannula 3.0 32 05/03/19 21:06 109 118/85 05/03/19 21:00 Nasal Cannula 3.0 05/03/19 21:00 Nasal Cannula 3.0 05/03/19 20:30 109 20 118/85 (96) 97 05/03/19 20:00 99.1 125 130/91 (104) 95 05/03/19 16:00 98.4 115 18 138/83 (101) 95 05/03/19 15:25 121 138/83 05/03/19 13:31 97.7 05/03/19 12:00 97.8 116 18 125/84 (98) 98 Intake and Output 05/03/19 05/04/19 19:00 07:00 Intake Total 660 ml Output Total 1200 ml 700 ml Balance -540 ml -700 ml Free Water 200 ml Tube Feeding 360 ml Blood Product 100 ml Output Urine Total 1200 ml 700 ml Laboratory Tests 05/04/19 04:26: White Blood Count 11.5H, Red Blood Count 3.72L, Hemoglobin 11.4L, Hematocrit 32.1L, Mean Corpuscular Volume 86, Mean Corpuscular Hemoglobin 30.7, Mean Corpuscular Hemoglobin Concent 35.6, Red Cell Distribution Width 17.8H, Platelet Count 616H, Mean Platelet Volume 5.5L, Neutrophils (%) (Auto) 64.5, Lymphocytes (%) (Auto) 24.8, Monocytes (%) (Auto) 7.6, Eosinophils (%) (Auto) 1.7, Basophils (%) (Auto) 1.4, Erythrocyte Sedimentation Rate 60H, Sodium Level 140, Potassium Level 4.1, Chloride Level 104, Carbon Dioxide Level 27, Anion Gap 9, Blood Urea Nitrogen 10, Creatinine 0.6, Estimat Glomerular Filtration Rate > 60, Glucose Level 56L, Calcium Level 9.1, Phosphorus Level 4.0, Magnesium Level 2.1, Total Bilirubin 0.4, Aspartate Amino Transf (AST/SGOT) 37, Alanine Aminotransferase (ALT/SGPT) 93H, Alkaline Phosphatase 96, C-Reactive Protein, Quantitative 4.7H, Total Protein 8.1, Albumin 2.5L, Globulin 5.6, Albumin/Globulin Ratio 0.4L Height (Feet): 5 Height (Inches): 7.00 Weight (Pounds): 124 Objective General Appearance: no apparent distress EENT: normal ENT inspection Neck: non-tender Cardiovascular: normal rate Respiratory/Chest: decreased breath sounds Abdomen: other - Gtube noted Extremities: swelling Edema: trace edema Neurologic: responsive Skin: warm/dry Henrry Allison May 04, 2019 09:57
--- NOTE | 2019-05-04 10:30 | Infectious Diseases Prog Note ---
Assessment/Plan Assessment/Plan Assessment: Sepsis Fungemia- r/o endocardiis Blood Cx 04/22/19 - C. alb Blood Cx 04/25/19 2/2 C. albicns Bcx 04/28 p TTE 04/12/19 - No Vegitations PNA - 04/22/19 Sp Cx P.a. and acenetobacter -04/16 CXR: Left greater than right bibasilar opacities may represent atelectasis versus pneumonia. Findings are decreased compared to prior exam. -CXR: Left basilar atelectasis and possible consolidation -sp cx PsA (ramirez S) -influenza sc neg -u/a neg Fever; SP Leukocytosis; decreasing Gram positive bacteremia- contaminant -04/11 Bcx 05/06 CONS; 04/12 Bcx NTD HTN dysphagia s/p GT cerebellar ataxia seizure disorder Alzheimer's dementia SNF resident Plan: - Get GAGAN to r/o Endocarditis - Continue Micafungin #9 - Continue Zosyn #01/10/10 and Bactrim # 9/10 - 04/24 SP Meropenem #3 and Vancomycin #3 - 04/22/19 SP Zosyn #3 -04/19 SP Cefepime #9 for PsA PNA -04/18 SP Azithromycin #7/7 -04/16 SP IV Vancomycin #6 -04/11 SP Ceftriaxone x1 -Monitor CBC/CMP, temperatures -GT care -aspiration precautions -CBC, CMP am -Cdiff if diarrhea Thank you for consulting [facility]. Will continue to follow along with you. Subjective Allergies: Coded Allergies: No Known Allergies (Unverified , 04/11/19) Subjective Afebrile Leukocytosis of 11 Pt on NC 3L Objective Vital Signs Last 24 Hour Vital Signs Date Time Temp Pulse Resp B/P (MAP) Pulse Ox O2 Delivery O2 Flow Rate FiO2 05/04/19 07:25 95 Nasal Cannula 3.0 32 05/04/19 05:03 102 115/82 05/04/19 04:00 98.3 104 24 117/86 (96) 98 05/04/19 00:00 98.6 105 24 107/70 (82) 98 05/03/19 23:03 98 Nasal Cannula 3.0 32 05/03/19 21:06 109 118/85 05/03/19 21:00 Nasal Cannula 3.0 05/03/19 21:00 Nasal Cannula 3.0 05/03/19 20:30 109 20 118/85 (96) 97 05/03/19 20:00 99.1 125 130/91 (104) 95 05/03/19 16:00 98.4 115 18 138/83 (101) 95 05/03/19 15:25 121 138/83 05/03/19 13:31 97.7 05/03/19 12:00 97.8 116 18 125/84 (98) 98 Height (Feet): 5 Height (Inches): 7.00 Weight (Pounds): 124 Objective GENERAL: NAD on 3L NC CARDIOVASCULAR: RRR, S1,S2 LUNGS: Coarse B/L ABDOMEN: Bowel sounds distant. Laboratory Tests Test 05/04/19 04:26 White Blood Count 11.5 K/UL (4.8-10.8) H Red Blood Count 3.72 M/UL (4.70-6.10) L Hemoglobin 11.4 G/DL (14.2-18.0) L Hematocrit 32.1 % (42.0-52.0) L Mean Corpuscular Volume 86 FL (80-99) Mean Corpuscular Hemoglobin 30.7 PG (27.0-31.0) Mean Corpuscular Hemoglobin Concent 35.6 G/DL (32.0-36.0) Red Cell Distribution Width 17.8 % (11.6-14.8) H Platelet Count 616 K/UL (150-450) H Mean Platelet Volume 5.5 FL (6.5-10.1) L Neutrophils (%) (Auto) 64.5 % (45.0-75.0) Lymphocytes (%) (Auto) 24.8 % (20.0-45.0) Monocytes (%) (Auto) 7.6 % (1.0-10.0) Eosinophils (%) (Auto) 1.7 % (0.0-3.0) Basophils (%) (Auto) 1.4 % (0.0-2.0) Erythrocyte Sedimentation Rate 60 MM/HR (0-15) H Sodium Level 140 MMOL/L (136-145) Potassium Level 4.1 MMOL/L (3.5-5.1) Chloride Level 104 MMOL/L (98-107) Carbon Dioxide Level 27 MMOL/L (21-32) Anion Gap 9 mmol/L (5-15) Blood Urea Nitrogen 10 mg/dL (7-18) Creatinine 0.6 MG/DL (0.55-1.30) Estimat Glomerular Filtration Rate > 60 mL/min (>60) Glucose Level 56 MG/DL (74-106) L Calcium Level 9.1 MG/DL (8.5-10.1) Phosphorus Level 4.0 MG/DL (2.5-4.9) Magnesium Level 2.1 MG/DL (1.8-2.4) Total Bilirubin 0.4 MG/DL (0.2-1.0) Aspartate Amino Transf (AST/SGOT) 37 U/L (15-37) Alanine Aminotransferase (ALT/SGPT) 93 U/L (12-78) H Alkaline Phosphatase 96 U/L (46-116) C-Reactive Protein, Quantitative 4.7 mg/dL (0.00-0.90) H Total Protein 8.1 G/DL (6.4-8.2) Albumin 2.5 G/DL (3.4-5.0) L Globulin 5.6 g/dL Albumin/Globulin Ratio 0.4 (1.0-2.7) L Current Medications Medications (Trade) Dose Ordered Sig/Kory Route PRN Reason Start Time Stop Time Status Last Admin Dose Admin Acetaminophen (Tylenol) 650 mg Q6H PRN GT Mild Pain/Temp > 100.5 04/16/19 17:30 05/11/19 17:29 04/30/19 01:08 Bisacodyl (Dulcolax) 10 mg DAILY ORAL 05/01/19 09:00 05/31/19 08:59 05/03/19 08:55 Dextrose (Dextrose 50%) 25 ml Q30M PRN IV Hypoglycemia 04/16/19 17:30 05/13/19 16:29 05/04/19 04:47 Dextrose (Dextrose 50%) 50 ml Q30M PRN IV Hypoglycemia 04/16/19 17:30 05/13/19 16:29 Docusate Sodium (Colace) 100 mg TWICE A DAY GT 05/01/19 18:00 05/31/19 17:59 05/03/19 18:05 Donepezil HCl (Aricept) 10 mg DAILY GT 04/17/19 09:00 05/12/19 08:59 05/03/19 08:55 Heparin Sodium (Porcine) (Heparin 5000 units/ml) 5,000 units EVERY 12 HOURS SUBQ 04/16/19 21:00 05/12/19 10:59 05/03/19 20:27 Insulin Aspart (NovoLOG) Q6HR SUBQ 04/16/19 18:00 05/13/19 17:59 05/03/19 18:10 Lactobacillus Acidophilus (Culturelle) 1 tab DAILY GT 04/17/19 09:00 05/12/19 08:59 05/03/19 08:55 Lactulose (Cephulac) 10 gm THREE TIMES A DAY GT 05/01/19 13:00 05/31/19 12:59 05/03/19 18:05 Lansoprazole (Prevacid) 30 mg DAILY GT 04/17/19 09:00 05/12/19 08:59 05/03/19 08:55 Lorazepam (Ativan 2mg/ml 1ml) 1 mg Q4H PRN IV Restlessness 04/28/19 12:15 05/05/19 12:14 05/03/19 22:37 Micafungin Sodium 100 mg/Dextrose 110 ml @ 110 mls/hr Q24H IVPB 04/30/19 12:00 05/07/19 11:59 05/03/19 12:33 Morphine Sulfate (Morphine Sulfate) 4 mg Q4H PRN IVP Moderate Pain (Pain Scale 4-6) 05/03/19 02:30 05/06/19 17:59 05/04/19 02:10 Morphine Sulfate (Morphine Sulfate) 6 mg Q4H PRN IVP Severe Pain (Pain Scale 7-10) 05/03/19 02:15 05/10/19 02:14 Multivitamins (Multivitamins W/ Minerals 15ml Liquid) 15 ml DAILY GT 04/17/19 09:00 05/12/19 08:59 05/03/19 08:55 Ondansetron HCl (Zofran) 4 mg Q6H PRN GT Nausea & Vomiting 04/16/19 17:30 05/12/19 17:29 Phenytoin 300 mg/ Sodium Chloride 55 ml @ 110 mls/hr DAILY IV 04/17/19 09:00 05/17/19 08:59 05/03/19 10:18 Piperacillin Sod/ Tazobactam Sod 3.375 gm/Dextrose 110 ml @ 27.5 mls/hr EVERY 8 HOURS IVPB 04/30/19 22:00 05/07/19 21:59 05/04/19 04:59 Polyethylene Glycol (Miralax) 17 gm BEDTIME GT 05/01/19 21:00 05/31/19 20:59 05/03/19 21:09 Primidone (Mysoline) 100 mg QHS GT 04/16/19 21:00 05/12/19 20:59 05/03/19 21:09 Sodium Phosphate (Fleet's Sodium Phosl Enema) 133 ml BIDPRN PRN RECTAL Constipation 05/01/19 18:15 05/31/19 18:14 05/01/19 23:17 Trimethoprim/ Sulfamethoxazole 12 ml/Dextrose 562 ml @ 374.667 mls/hr [id number] BACTRIM IV 04/25/19 16:00 05/07/19 15:59 05/03/19 23:29 Verapamil HCl (Calan) 80 mg EVERY 8 HOURS GT 04/18/19 14:45 05/16/19 14:44 05/03/19 15:25 Rayshawn Soni MD May 04, 2019 10:30
[2019-05-04] MEDS: D5W IV SCH ×3 (10:45→23:35)
[2019-05-04] MEDS: TRIMETHOPRIM IV SCH ×3 (10:45→23:35)
[2019-05-04] MEDS: SULFAMETHOXAZOLE IV SCH ×3 (10:45→23:35)
[2019-05-04] MEDS: NS IV SCH (10:50)
[2019-05-04] MEDS: PHENYTOIN IV SCH (10:50)
--- NOTE | 2019-05-04 11:53 | Pulmonology Progress Note ---
Assessment/Plan Problems: (1) Fungemia (2) Sepsis (3) Nosocomial pneumonia (4) Chronic tachycardia (5) Epilepsy (6) Hereditary cerebellar ataxia (7) Cavitary lung disease (8) FR-Hldfcvq-Hwhnvs disease (9) Feeding by G-tube Assessment/Plan GAGAN today still tachy at 120 Yeast in Blood cultrures sputum has pseudomonas, pansensitive iv abx symptomatic treatment feeding by Gtube aspiration precaution Verapamil for chronic tachycardia, double the dose since, heart rate is low 100 monitor heart rate prbc prn Hem< 8 dvt prophylaxis. reviewed echo: normal EF Subjective ROS Limited/Unobtainable: Yes Constitutional: Reports: no symptoms HEENT: Repors: no symptoms Allergies: Coded Allergies: No Known Allergies (Unverified , 04/11/19) Objective Last 24 Hour Vital Signs Date Time Temp Pulse Resp B/P (MAP) Pulse Ox O2 Delivery O2 Flow Rate FiO2 05/04/19 07:25 95 Nasal Cannula 3.0 32 05/04/19 05:03 102 115/82 05/04/19 04:00 98.3 104 24 117/86 (96) 98 05/04/19 00:00 98.6 105 24 107/70 (82) 98 05/03/19 23:03 98 Nasal Cannula 3.0 32 05/03/19 21:06 109 118/85 05/03/19 21:00 Nasal Cannula 3.0 05/03/19 21:00 Nasal Cannula 3.0 05/03/19 20:30 109 20 118/85 (96) 97 05/03/19 20:00 99.1 125 130/91 (104) 95 05/03/19 16:00 98.4 115 18 138/83 (101) 95 05/03/19 15:25 121 138/83 05/03/19 13:31 97.7 05/03/19 12:00 97.8 116 18 125/84 (98) 98 Intake and Output 05/03/19 05/04/19 18:59 06:59 Intake Total 600 ml 60 ml Output Total 1200 ml 700 ml Balance -600 ml -640 ml Free Water 200 ml Tube Feeding 300 ml 60 ml Blood Product 100 ml Output Urine Total 1200 ml 700 ml Objective General Appearance: no acute distress HEENT: normocephalic, anicteric Respiratory/Chest: chest wall non-tender, rhonchi Cardiovascular: normal peripheral pulses, normal rate, regular rhythm Abdomen: normal bowel sounds, soft, non tender Genitourinary: normal external genitalia Extremities: no cyanosis Laboratory Tests 05/04/19 04:26: White Blood Count 11.5H, Red Blood Count 3.72L, Hemoglobin 11.4L, Hematocrit 32.1L, Mean Corpuscular Volume 86, Mean Corpuscular Hemoglobin 30.7, Mean Corpuscular Hemoglobin Concent 35.6, Red Cell Distribution Width 17.8H, Platelet Count 616H, Mean Platelet Volume 5.5L, Neutrophils (%) (Auto) 64.5, Lymphocytes (%) (Auto) 24.8, Monocytes (%) (Auto) 7.6, Eosinophils (%) (Auto) 1.7, Basophils (%) (Auto) 1.4, Erythrocyte Sedimentation Rate 60H, Sodium Level 140, Potassium Level 4.1, Chloride Level 104, Carbon Dioxide Level 27, Anion Gap 9, Blood Urea Nitrogen 10, Creatinine 0.6, Estimat Glomerular Filtration Rate > 60, Glucose Level 56L, Calcium Level 9.1, Phosphorus Level 4.0, Magnesium Level 2.1, Total Bilirubin 0.4, Aspartate Amino Transf (AST/SGOT) 37, Alanine Aminotransferase (ALT/SGPT) 93H, Alkaline Phosphatase 96, C-Reactive Protein, Quantitative 4.7H, Total Protein 8.1, Albumin 2.5L, Globulin 5.6, Albumin/Globulin Ratio 0.4L Current Medications Medications (Trade) Dose Ordered Sig/Kory Route PRN Reason Start Time Stop Time Status Last Admin Dose Admin Acetaminophen (Tylenol) 650 mg Q6H PRN GT Mild Pain/Temp > 100.5 04/16/19 17:30 05/11/19 17:29 04/30/19 01:08 Bisacodyl (Dulcolax) 10 mg DAILY ORAL 05/01/19 09:00 05/31/19 08:59 05/03/19 08:55 Dextrose (Dextrose 50%) 25 ml Q30M PRN IV Hypoglycemia 04/16/19 17:30 05/13/19 16:29 05/04/19 04:47 Dextrose (Dextrose 50%) 50 ml Q30M PRN IV Hypoglycemia 04/16/19 17:30 05/13/19 16:29 Docusate Sodium (Colace) 100 mg TWICE A DAY GT 05/01/19 18:00 05/31/19 17:59 05/03/19 18:05 Donepezil HCl (Aricept) 10 mg DAILY GT 04/17/19 09:00 05/12/19 08:59 05/03/19 08:55 Heparin Sodium (Porcine) (Heparin 5000 units/ml) 5,000 units EVERY 12 HOURS SUBQ 04/16/19 21:00 05/12/19 10:59 05/03/19 20:27 Insulin Aspart (NovoLOG) Q6HR SUBQ 04/16/19 18:00 05/13/19 17:59 05/03/19 18:10 Lactobacillus Acidophilus (Culturelle) 1 tab DAILY GT 04/17/19 09:00 05/12/19 08:59 05/03/19 08:55 Lactulose (Cephulac) 10 gm THREE TIMES A DAY GT 05/01/19 13:00 05/31/19 12:59 05/03/19 18:05 Lansoprazole (Prevacid) 30 mg DAILY GT 04/17/19 09:00 05/12/19 08:59 05/03/19 08:55 Lorazepam (Ativan 2mg/ml 1ml) 1 mg Q4H PRN IV Restlessness 04/28/19 12:15 05/05/19 12:14 05/03/19 22:37 Micafungin Sodium 100 mg/Dextrose 110 ml @ 110 mls/hr Q24H IVPB 04/30/19 12:00 05/07/19 11:59 05/03/19 12:33 Morphine Sulfate (Morphine Sulfate) 4 mg Q4H PRN IVP Moderate Pain (Pain Scale 4-6) 05/03/19 02:30 05/06/19 17:59 05/04/19 02:10 Morphine Sulfate (Morphine Sulfate) 6 mg Q4H PRN IVP Severe Pain (Pain Scale 7-10) 05/03/19 02:15 05/10/19 02:14 Multivitamins (Multivitamins W/ Minerals 15ml Liquid) 15 ml DAILY GT 04/17/19 09:00 05/12/19 08:59 05/03/19 08:55 Ondansetron HCl (Zofran) 4 mg Q6H PRN GT Nausea & Vomiting 04/16/19 17:30 05/12/19 17:29 Phenytoin 300 mg/ Sodium Chloride 55 ml @ 110 mls/hr DAILY IV 04/17/19 09:00 05/17/19 08:59 05/04/19 10:50 Piperacillin Sod/ Tazobactam Sod 3.375 gm/Dextrose 110 ml @ 27.5 mls/hr EVERY 8 HOURS IVPB 04/30/19 22:00 05/07/19 21:59 05/04/19 04:59 Polyethylene Glycol (Miralax) 17 gm BEDTIME GT 05/01/19 21:00 05/31/19 20:59 05/03/19 21:09 Primidone (Mysoline) 100 mg QHS GT 04/16/19 21:00 05/12/19 20:59 05/03/19 21:09 Sodium Phosphate (Fleet's Sodium Phosl Enema) 133 ml BIDPRN PRN RECTAL Constipation 05/01/19 18:15 05/31/19 18:14 05/01/19 23:17 Trimethoprim/ Sulfamethoxazole 12 ml/Dextrose 562 ml @ 374.667 mls/hr [id number] BACTRIM IV 04/25/19 16:00 05/07/19 15:59 05/04/19 10:45 Verapamil HCl (Calan) 80 mg EVERY 8 HOURS GT 04/18/19 14:45 05/16/19 14:44 05/03/19 15:25 Carlos Sauer MD May 04, 2019 11:52
--- NOTE | 2019-05-04 11:54 | GI Progress Note ---
Assessment/Plan Problems: (1) Feeding by G-tube ICD Codes: Z93.1 - Gastrostomy status SNOMED: 962566374, 953923152, [id number] (2) Constipated ICD Codes: K59.00 - Constipation, unspecified SNOMED: 47633627 Status: unchanged Status Narrative Discussed with Dr. Esqueda. Assessment/Plan Assessment/Plan: 1. History of CVA. 2. Dysphagia with G-tube. 3. Hypertension. 4. GERD. 5. Epilepsy. 6. Peptic ulcer disease. 7.constipation 8. Elevated LFTS laxatives abd us>>> reviewed>>> gallstones, negative for dilated ducts repeat labs GTFs prn transfusions The patient was seen and examined at bedside and all new and available data was reviewed in the patients chart. I agree with the above findings, impression and plan. (Patient seen earlier today. Signature stamp does not reflect patient encounter time.). - Faizan Esqueda MD Subjective Subjective limited Objective Last 24 Hour Vital Signs Date Time Temp Pulse Resp B/P (MAP) Pulse Ox O2 Delivery O2 Flow Rate FiO2 05/04/19 07:25 95 Nasal Cannula 3.0 32 05/04/19 05:03 102 115/82 05/04/19 04:00 98.3 104 24 117/86 (96) 98 05/04/19 00:00 98.6 105 24 107/70 (82) 98 05/03/19 23:03 98 Nasal Cannula 3.0 32 05/03/19 21:06 109 118/85 05/03/19 21:00 Nasal Cannula 3.0 05/03/19 21:00 Nasal Cannula 3.0 05/03/19 20:30 109 20 118/85 (96) 97 05/03/19 20:00 99.1 125 130/91 (104) 95 05/03/19 16:00 98.4 115 18 138/83 (101) 95 05/03/19 15:25 121 138/83 05/03/19 13:31 97.7 05/03/19 12:00 97.8 116 18 125/84 (98) 98 Intake and Output 05/03/19 05/04/19 19:00 07:00 Intake Total 660 ml Output Total 1200 ml 700 ml Balance -540 ml -700 ml Free Water 200 ml Tube Feeding 360 ml Blood Product 100 ml Output Urine Total 1200 ml 700 ml Laboratory Tests Test 05/04/19 04:26 White Blood Count 11.5 K/UL (4.8-10.8) H Red Blood Count 3.72 M/UL (4.70-6.10) L Hemoglobin 11.4 G/DL (14.2-18.0) L Hematocrit 32.1 % (42.0-52.0) L Mean Corpuscular Volume 86 FL (80-99) Mean Corpuscular Hemoglobin 30.7 PG (27.0-31.0) Mean Corpuscular Hemoglobin Concent 35.6 G/DL (32.0-36.0) Red Cell Distribution Width 17.8 % (11.6-14.8) H Platelet Count 616 K/UL (150-450) H Mean Platelet Volume 5.5 FL (6.5-10.1) L Neutrophils (%) (Auto) 64.5 % (45.0-75.0) Lymphocytes (%) (Auto) 24.8 % (20.0-45.0) Monocytes (%) (Auto) 7.6 % (1.0-10.0) Eosinophils (%) (Auto) 1.7 % (0.0-3.0) Basophils (%) (Auto) 1.4 % (0.0-2.0) Erythrocyte Sedimentation Rate 60 MM/HR (0-15) H Sodium Level 140 MMOL/L (136-145) Potassium Level 4.1 MMOL/L (3.5-5.1) Chloride Level 104 MMOL/L (98-107) Carbon Dioxide Level 27 MMOL/L (21-32) Anion Gap 9 mmol/L (5-15) Blood Urea Nitrogen 10 mg/dL (7-18) Creatinine 0.6 MG/DL (0.55-1.30) Estimat Glomerular Filtration Rate > 60 mL/min (>60) Glucose Level 56 MG/DL (74-106) L Calcium Level 9.1 MG/DL (8.5-10.1) Phosphorus Level 4.0 MG/DL (2.5-4.9) Magnesium Level 2.1 MG/DL (1.8-2.4) Total Bilirubin 0.4 MG/DL (0.2-1.0) Aspartate Amino Transf (AST/SGOT) 37 U/L (15-37) Alanine Aminotransferase (ALT/SGPT) 93 U/L (12-78) H Alkaline Phosphatase 96 U/L (46-116) C-Reactive Protein, Quantitative 4.7 mg/dL (0.00-0.90) H Total Protein 8.1 G/DL (6.4-8.2) Albumin 2.5 G/DL (3.4-5.0) L Globulin 5.6 g/dL Albumin/Globulin Ratio 0.4 (1.0-2.7) L Height (Feet): 5 Height (Inches): 7.00 Weight (Pounds): 124 General Appearance: no apparent distress Cardiovascular: normal rate Respiratory/Chest: normal breath sounds, no respiratory distress Abdominal Exam: normal bowel sounds, non tender, soft, GT site - c/d/i Extremities: non-tender Adan Arora NP May 04, 2019 11:54
[2019-05-04 12:00] VITALS: BP 107/70
--- NOTE | 2019-05-04 13:21 | NUR ---
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 96.6 HR 110 RR 21 B/P 145/79 3L NC O2 SAT @ 98% WBC 11.5 ESR 60 IS: MICAFUNGIN IV ZOSYN IV BACTRIM IV DILAUDID IV HEPARIN SUBC MED/SURG STATUS
--- NOTE | 2019-05-04 13:26 | NUR ---
CHARGE NURSE NOTE: Pt is scheduled for GAGAN, consent signed by his brother. Spoke with Tavo (cardiology) twice, reminded them about procedure. Card. dep. will call if he is available to do procedure.
[2019-05-04] MEDS: Micafungin 100 MG in D5W 110 ML IVPB SCH (14:11)
[2019-05-04 16:00] VITALS: BP 120/83
--- NOTE | 2019-05-04 16:14 | Cardiac Electrophysiology PN ---
Subjective Subjective [id number] Objective Last 24 Hour Vital Signs Date Time Temp Pulse Resp B/P (MAP) Pulse Ox O2 Delivery O2 Flow Rate FiO2 05/04/19 12:00 98.6 105 24 107/70 (82) 98 05/04/19 09:00 Nasal Cannula 3.0 05/04/19 08:00 96.6 110 21 108/79 (89) 96 05/04/19 07:25 95 Nasal Cannula 3.0 32 05/04/19 05:03 102 115/82 05/04/19 04:00 98.3 104 24 117/86 (96) 98 05/04/19 00:00 98.6 105 24 107/70 (82) 98 05/03/19 23:03 98 Nasal Cannula 3.0 32 05/03/19 21:06 109 118/85 05/03/19 21:00 Nasal Cannula 3.0 05/03/19 21:00 Nasal Cannula 3.0 05/03/19 20:30 109 20 118/85 (96) 97 05/03/19 20:00 99.1 125 130/91 (104) 95 Intake and Output 05/03/19 05/04/19 19:00 07:00 Intake Total 660 ml Output Total 1200 ml 700 ml Balance -540 ml -700 ml Free Water 200 ml Tube Feeding 360 ml Blood Product 100 ml Output Urine Total 1200 ml 700 ml Laboratory Tests Test 05/04/19 04:26 White Blood Count 11.5 K/UL (4.8-10.8) H Red Blood Count 3.72 M/UL (4.70-6.10) L Hemoglobin 11.4 G/DL (14.2-18.0) L Hematocrit 32.1 % (42.0-52.0) L Mean Corpuscular Volume 86 FL (80-99) Mean Corpuscular Hemoglobin 30.7 PG (27.0-31.0) Mean Corpuscular Hemoglobin Concent 35.6 G/DL (32.0-36.0) Red Cell Distribution Width 17.8 % (11.6-14.8) H Platelet Count 616 K/UL (150-450) H Mean Platelet Volume 5.5 FL (6.5-10.1) L Neutrophils (%) (Auto) 64.5 % (45.0-75.0) Lymphocytes (%) (Auto) 24.8 % (20.0-45.0) Monocytes (%) (Auto) 7.6 % (1.0-10.0) Eosinophils (%) (Auto) 1.7 % (0.0-3.0) Basophils (%) (Auto) 1.4 % (0.0-2.0) Erythrocyte Sedimentation Rate 60 MM/HR (0-15) H Sodium Level 140 MMOL/L (136-145) Potassium Level 4.1 MMOL/L (3.5-5.1) Chloride Level 104 MMOL/L (98-107) Carbon Dioxide Level 27 MMOL/L (21-32) Anion Gap 9 mmol/L (5-15) Blood Urea Nitrogen 10 mg/dL (7-18) Creatinine 0.6 MG/DL (0.55-1.30) Estimat Glomerular Filtration Rate > 60 mL/min (>60) Glucose Level 56 MG/DL (74-106) L Calcium Level 9.1 MG/DL (8.5-10.1) Phosphorus Level 4.0 MG/DL (2.5-4.9) Magnesium Level 2.1 MG/DL (1.8-2.4) Total Bilirubin 0.4 MG/DL (0.2-1.0) Aspartate Amino Transf (AST/SGOT) 37 U/L (15-37) Alanine Aminotransferase (ALT/SGPT) 93 U/L (12-78) H Alkaline Phosphatase 96 U/L (46-116) C-Reactive Protein, Quantitative 4.7 mg/dL (0.00-0.90) H Total Protein 8.1 G/DL (6.4-8.2) Albumin 2.5 G/DL (3.4-5.0) L Globulin 5.6 g/dL Albumin/Globulin Ratio 0.4 (1.0-2.7) L Kyree Soto MD May 04, 2019 16:14
--- NOTE | 2019-05-04 19:16 | NUR ---
HAND-OFF: Report given to EDUAR Garcia.
--- NOTE | 2019-05-04 19:24 | NUR ---
NURSE NOTES: Patient in bed, on nasal cannula, gtube connected to feeding. For GAGAN. Will continue to monitor.
[2019-05-04 20:00] VITALS: BP 141/117
[2019-05-04] MEDS: LORazepam Inj 2mg/ml 1ml IV PRN (20:21)
--- NOTE | 2019-05-04 20:30 | Progress Note ---
DATE: 05/04/2019 SUBJECTIVE: This is a 43-year-old male patient with sepsis, respiratory insufficiency, decline in cognition below his baseline. MENTAL STATUS EXAMINATION: This is a 43-year-old male. Appearance is disheveled. Attitude, irritable and agitated. Affect, guarded and restricted. Intellect poor. Mood, depressed and anxious. Motor activity, psychomotor agitation. Attention span was poor. Orientation x2. Speech is low volume, slow. Thought process, disorganized and logical. Insight and judgment is poor. DIAGNOSIS: Major depressive disorder, mild, recurrent with psychotic features. PLAN: Plan for this patient, treat him with Ativan 1 mg every 4 hours p.r.n. anxiety and agitation and Aricept 10 mg daily. A 20 minutes of behavioral management. Chart reviewed and discussed with staff. Seen and assessed at bedside. Osbaldo Bird M.D. DR: JUAN JOB#: [id number] CC:
[2019-05-04] MEDS: Miralax 17gm pkt GT SCH (21:00)
--- NOTE | 2019-05-04 22:11 | General Progress Note ---
Assessment/Plan Problem List: (1) Sickle cell anemia ICD Codes: D57.1 - Sickle-cell disease without crisis SNOMED: 884473206 (2) Sepsis ICD Codes: A41.9 - Sepsis, unspecified organism SNOMED: 62683572 (3) Epilepsy ICD Codes: G40.909 - Epilepsy, unspecified, not intractable, without status epilepticus SNOMED: 80536992 (4) Cavitary lung disease ICD Codes: J98.4 - Other disorders of lung SNOMED: 131154727 (5) MY-Bcfctqb-Ucmnkr disease (6) Nosocomial pneumonia ICD Codes: J18.9 - Pneumonia, unspecified organism; Y95 - Nosocomial condition SNOMED: 691155963 Status: unchanged Assessment/Plan: sick cell anemia crisis improving afebrile reviewed chart and labs no seizure sepsis pna Subjective ROS Limited/Unobtainable: Yes Allergies: Coded Allergies: No Known Allergies (Unverified , 04/11/19) Objective Last 24 Hour Vital Signs Date Time Temp Pulse Resp B/P (MAP) Pulse Ox O2 Delivery O2 Flow Rate FiO2 05/04/19 21:24 109 105/74 05/04/19 20:25 98 Nasal Cannula 3.0 32 05/04/19 18:04 111 120/83 05/04/19 16:00 97.3 111 22 120/83 (95) 99 05/04/19 12:00 98.6 105 24 107/70 (82) 98 05/04/19 09:00 Nasal Cannula 3.0 05/04/19 08:00 96.6 110 21 108/79 (89) 96 05/04/19 07:25 95 Nasal Cannula 3.0 32 05/04/19 05:03 102 115/82 05/04/19 04:00 98.3 104 24 117/86 (96) 98 05/04/19 00:00 98.6 105 24 107/70 (82) 98 05/03/19 23:03 98 Nasal Cannula 3.0 32 Intake and Output 05/03/19 05/04/19 19:00 07:00 Intake Total 660 ml Output Total 1200 ml 700 ml Balance -540 ml -700 ml Free Water 200 ml Tube Feeding 360 ml Blood Product 100 ml Output Urine Total 1200 ml 700 ml Laboratory Tests 05/04/19 04:26: White Blood Count 11.5H, Red Blood Count 3.72L, Hemoglobin 11.4L, Hematocrit 32.1L, Mean Corpuscular Volume 86, Mean Corpuscular Hemoglobin 30.7, Mean Corpuscular Hemoglobin Concent 35.6, Red Cell Distribution Width 17.8H, Platelet Count 616H, Mean Platelet Volume 5.5L, Neutrophils (%) (Auto) 64.5, Lymphocytes (%) (Auto) 24.8, Monocytes (%) (Auto) 7.6, Eosinophils (%) (Auto) 1.7, Basophils (%) (Auto) 1.4, Erythrocyte Sedimentation Rate 60H, Sodium Level 140, Potassium Level 4.1, Chloride Level 104, Carbon Dioxide Level 27, Anion Gap 9, Blood Urea Nitrogen 10, Creatinine 0.6, Estimat Glomerular Filtration Rate > 60, Glucose Level 56L, Calcium Level 9.1, Phosphorus Level 4.0, Magnesium Level 2.1, Total Bilirubin 0.4, Aspartate Amino Transf (AST/SGOT) 37, Alanine Aminotransferase (ALT/SGPT) 93H, Alkaline Phosphatase 96, C-Reactive Protein, Quantitative 4.7H, Total Protein 8.1, Albumin 2.5L, Globulin 5.6, Albumin/Globulin Ratio 0.4L Height (Feet): 5 Height (Inches): 7.00 Weight (Pounds): 124 Cardiovascular: normal rate Respiratory/Chest: lungs clear Kenn Pritchett MD May 04, 2019 22:11
[2019-05-05] VITALS: BP_SYST 102; BP_SYST 110; BP_DIAS 77; BP_DIAS 78
--- NOTE | 2019-05-05 01:01 | Consultation ---
DATE OF CONSULTATION: 05/04/2019 CARDIOLOGY CONSULTATION CONSULTING PHYSICIAN: Kyree Soto M.D. REFERRING PHYSICIAN: Kenn Pritchett M.D. REASON FOR CONSULTATION: Rule out endocarditis. HISTORY OF PRESENT ILLNESS: The patient is a 43-year-old gentleman with history of hypertension, seizure disorder, dementia as well as cerebellar ataxia, and dysphagia status post G-tube placement, who is a retirement home resident, has been having recurrent fever. The patient was treated for Pseudomonas aeruginosa as well as Acinetobacter pneumonia 04/22/2019. The patient also has fungemia with blood culture on 04/22/2019 showed Meche albicans and on 04/25/2019/2 also showed Meche albicans. His blood culture om 04/28/2019 is pending. His echocardiogram on 04/12/2019, however, showed no vegetations. Cardiology consultation was requested for consideration of transesophageal echocardiogram to rule out endocarditis. REVIEW OF SYSTEMS: Cannot be obtained as the patient is nonverbal. PAST MEDICAL HISTORY: As mentioned above. PAST SURGICAL HISTORY: Includes G-tube. FAMILY HISTORY: Noncontributory. SOCIAL HISTORY: He is a [facility] resident. Does not smoke or drink alcohol. PHYSICAL EXAMINATION: VITAL SIGNS: Show blood pressure of 107/70, pulse is 105, respirations 18, and temperature 98.6. HEAD AND NECK: Showed no JVD. LUNGS: Coarse rhonchi. CARDIOVASCULAR: Regular S1 and S2 with no gallop or murmur. ABDOMEN: Status post G-tube. EXTREMITIES: No pitting edema. LABORATORY AND DIAGNOSTIC DATA: His labs show white count of 11.5, hemoglobin 11.4, hematocrit 32.1, and platelet count of 616,000. Sodium 140, potassium 4.1, BUN of 10, creatinine of 0.6, and glucose of 56. Vanco level is 12.1. ASSESSMENT AND PLAN: 1. History of tachycardia of unclear nature. There is no clear documentation of atrial fib or supraventricular tachycardia. His echo showed ejection fraction of 65%. While he was on tele, he had sinus rhythm with sinus tachycardia, currently off telemetry. Continue verapamil 80 mg every 8 hours through G-tube. 2. Hypertension, stable on verapamil. 3. Multiple positive blood cultures for fungi. I agree with , the ID physician that the patient was transesophageal echocardiogram and . In the meantime, the patient is on antifungal as well as IV antibiotics. 4. Dysphagia, status post PEG placement. 5. History of CVA. 6. Epilepsy. 7. Peptic ulcer disease. 8. Elevated liver function tests. Thank you very much, Dr. Pritchett, for allowing me to participate in the care of this patient. Please do not hesitate to contact me for any questions regarding my evaluation. Kyree Soto M.D. DR: MISTY JOB#: [id number] CC:
[2019-05-05 04:00] VITALS: BP 113/82
[2019-05-05] MEDS: Verapamil 80mg tab GT SCH ×3 (05:11→22:00)
[2019-05-05] MEDS: NovoLOG Insulin Flexpen SUBQ SCH ×3 (05:11→18:29)
[2019-05-05] MEDS: Piperacillin/Tazobactam 3.375 GM in D5W 110 ML IVPB SCH ×3 (05:14→22:25)
[2019-05-05 07:12] LABS: BASOPHILS % (AUTO) 1.5 % (0.0-2.0); EOSINOPHILS % (AUTO) 0.5 % (0.0-3.0); HEMOGLOBIN 11.4 G/DL (14.2-18.0); LYMPHOCYTES % (AUTO) 17.9 % (20.0-45.0); MEAN CORPUSCULAR VOLUME 86 FL (80-99); MONOCYTES % (AUTO) 6.7 % (1.0-10.0); NEUTROPHILS % (AUTO) 73.3 % (45.0-75.0); PLATELET COUNT 613 K/UL (150-450); RED BLOOD COUNT 3.74 M/UL (4.70-6.10); RED CELL DISTRIBUTION WIDTH 17.7 % (11.6-14.8); WHITE BLOOD COUNT 12.6 K/UL (4.8-10.8)
[2019-05-05 07:28] LABS: ALANINE AMINOTRANSFERASE 79 U/L (12-78); ALBUMIN 2.6 G/DL (3.4-5.0); ALBUMIN/GLOBULIN RATIO 0.4 (1.0-2.7); ALKALINE PHOSPHATASE 100 U/L (46-116); ANION GAP 8 mmol/L (5-15); ASPARTATE AMINO TRANSFERASE 38 U/L (15-37); BILIRUBIN,TOTAL 0.6 MG/DL (0.2-1.0); BLOOD UREA NITROGEN 11 mg/dL (7-18); CALCIUM 9.3 MG/DL (8.5-10.1); CARBON DIOXIDE 27 MMOL/L (21-32); CHLORIDE 101 MMOL/L (98-107); CREATININE 0.7 MG/DL (0.55-1.30); PHOSPHORUS 3.3 MG/DL (2.5-4.9); POTASSIUM 4.1 MMOL/L (3.5-5.1); SODIUM 136 MMOL/L (136-145)
--- NOTE | 2019-05-05 07:53 | NUR ---
NURSE NOTES: received report from EDUAR Rincon. patient in bed. disoriented, non verbal. no respiratory distress with 3l via NC. IV on LFA 22g. RFA 22g. intact, F/C draining. yellow. no sediment. GAGAN today. midnight NPO. bed in the low position and locked. call light within reach. will continue to provide plan of care.
--- NOTE | 2019-05-05 07:53 | NUR ---
HAND-OFF: Report given to EDUAR Benavides.
[2019-05-05 08:00] VITALS: BP 154/111
[2019-05-05] MEDS ORDERED: DiphenhydrAMINE 50mg/ml Inj IVP PRN (08:15)
[2019-05-05] MEDS ORDERED: fentaNYL 100 mcg/2 mL IV PRN (08:15)
[2019-05-05] MEDS ORDERED: Atropine Inj 1mg/10ml Syr IV PRN (08:15)
--- NOTE | 2019-05-05 08:24 | Anethesia Preoperative Eval ---
Anesthesia Pre-op PMH/ROS General Date of Evaluation: May 05, 2019 Time of Evaluation: 08:11 Anesthesiologist: jonathon ASA Score: ASA 4 Mallampati Score Class I : Soft palate, uvula, fauces, pillars visible Class II: Soft palate, uvula, fauces visible Class III: Soft palate, base of uvula visible Class IV: Only hard plate visible Mallampati Classification: Class II Surgeon: marly Diagnosis: endocarditis Surgical Procedure: GAGAN Anesthesia History: none Social History: smoking - nonsmoker Family History: no anesthesia problems Allergies: Coded Allergies: No Known Allergies (Unverified , 04/11/19) Medications: see eMAR Patient NPO?: Yes Past Medical History Cardiovascular: Reports: HTN, arrhythmia Pulmonary: Reports: other - nosocomial pneumonia, cavitary lung dz Gastrointestinal/Genitourinary: Reports: ESRD - on dialysis, other - g-tube Neurologic/Psychiatric: Reports: CVA, depression/anxiety, other - alzheimer's dz, cerebellar ataxia, epilepsy Hematology/Immune: Reports: anemia, bleeding disorder - sca, other - sepsis, fungemia [facility] Narrative: YP-Tdwiovt-Fxkhtd dz Anesthesia Pre-op Phys. Exam Physician Exam Last Vital Signs Date Time Temp Pulse Resp B/P (MAP) Pulse Ox O2 Delivery O2 Flow Rate FiO2 05/05/19 05:11 112 113/82 05/05/19 04:00 98.1 18 95 05/04/19 21:00 Nasal Cannula 3.0 05/04/19 20:25 32 Constitutional: other - appears to be struggling to breath Neurologic: other - evidence of ceberbellar ataxia Cardiovascular: other - tachycardia Respiratory: other - using accessory muscles to breath, retraction noted at rib , increased respiratory efforts Gastrointestinal: other - g-tube Airway Exam Mallampati Score: Class II MO: limited Neck: decreased rom to lateral rotation TMD: 3fb ROM: limited Teeth: missing Anesthesia Pre-op A/P Labs Hematology Test 05/05/19 04:33 White Blood Count 12.6 K/UL (4.8-10.8) H Red Blood Count 3.74 M/UL (4.70-6.10) L Hemoglobin 11.4 G/DL (14.2-18.0) L Hematocrit 32.0 % (42.0-52.0) L Mean Corpuscular Volume 86 FL (80-99) Mean Corpuscular Hemoglobin 30.6 PG (27.0-31.0) Mean Corpuscular Hemoglobin Concent 35.8 G/DL (32.0-36.0) Red Cell Distribution Width 17.7 % (11.6-14.8) H Platelet Count 613 K/UL (150-450) H Mean Platelet Volume 5.3 FL (6.5-10.1) L Neutrophils (%) (Auto) 73.3 % (45.0-75.0) Lymphocytes (%) (Auto) 17.9 % (20.0-45.0) L Monocytes (%) (Auto) 6.7 % (1.0-10.0) Eosinophils (%) (Auto) 0.5 % (0.0-3.0) Basophils (%) (Auto) 1.5 % (0.0-2.0) Chemistry Test 05/05/19 04:33 Sodium Level 136 MMOL/L (136-145) Potassium Level 4.1 MMOL/L (3.5-5.1) Chloride Level 101 MMOL/L (98-107) Carbon Dioxide Level 27 MMOL/L (21-32) Anion Gap 8 mmol/L (5-15) Blood Urea Nitrogen 11 mg/dL (7-18) Creatinine 0.7 MG/DL (0.55-1.30) Estimat Glomerular Filtration Rate > 60 mL/min (>60) Glucose Level 60 MG/DL (74-106) L Calcium Level 9.3 MG/DL (8.5-10.1) Phosphorus Level 3.3 MG/DL (2.5-4.9) Magnesium Level 1.9 MG/DL (1.8-2.4) Total Bilirubin 0.6 MG/DL (0.2-1.0) Aspartate Amino Transf (AST/SGOT) 38 U/L (15-37) H Alanine Aminotransferase (ALT/SGPT) 79 U/L (12-78) H Alkaline Phosphatase 100 U/L (46-116) Total Protein 8.4 G/DL (6.4-8.2) H Albumin 2.6 G/DL (3.4-5.0) L Globulin 5.8 g/dL Albumin/Globulin Ratio 0.4 (1.0-2.7) L Risk Assessment & Plan Assessment: asa4 patient appears to be requiring increased respiratory efforts with newly elevated diastolic bp greater than 110mmHg since arriving to procedure room not documented on the floor. Plan: optimize clinic status prior to attempting procedure. mac Status Change Before Surgery: Yes - elevated diastolic bp greater than 110mmHg , increased respiratory efforts noted Pre-Antibiotics Drug: Mirna Farr MD May 05, 2019 08:24
[2019-05-05] MEDS ORDERED: NS 500ML IVPB ONE (08:30)
--- NOTE | 2019-05-05 08:33 | Pre-Procedure Note/Attestation ---
Pre-Procedure Note/Attestation Complete Prior to Procedure Procedure Narrative: Transesophageal echocardiography Indications for Procedure Pre-Operative Diagnosis: Fungemia possible infective endocarditis Attestation I attest that I discussed the nature of the procedure; its benefits; risks and complications; and alternatives (and the risks and benefits of such alternatives ), prior to the procedure, with the patient (or the patient's legal assistance representative). I attest that, if there was a reasonable possibility of needing a blood transfusion, the patient (or the patient's legal assistance representative) was given the [facility] standardized written summary, pursuant to the Rudolph Joseline Blood Safety Act ([place] Health and Safety Code # 1645, as amended). I attest that I re-evaluated the patient just prior to the surgery and that there has been no change in the patient's H&P, except as documented below: Kyree Abad MD May 05, 2019 08:33
--- NOTE | 2019-05-05 08:51 | NUR ---
CHARGE NURSE NOTE: Received call from Jameel (GI lab). GAGAN is not done, pt is not stable for procedure. notified.
--- NOTE | 2019-05-05 09:22 | General Progress Note ---
Assessment/Plan Assessment/Plan: (1) Sacral decubitus ulcer (2) Dementia (3) Encephalopathy (4) Sepsis (5) Cerebral Ataxia (6) Sickle cell disease Pt will be continued on Morphine D/w Dr. Palomino and he concurred. Subjective Date patient seen: May 05, 2019 Time patient seen: 08:00 - am ROS Limited/Unobtainable: Yes Allergies: Coded Allergies: No Known Allergies (Unverified , 04/11/19) Subjective Patient showing no signs of pain or distress. Has received 1 doses of Morphine 4mg 2 doses of Morphine 6mg. Objective Last 24 Hour Vital Signs Date Time Temp Pulse Resp B/P (MAP) Pulse Ox O2 Delivery O2 Flow Rate FiO2 05/05/19 08:13 96 Nasal Cannula 3.0 32 05/05/19 05:11 112 113/82 05/05/19 04:00 98.1 112 18 113/82 (92) 95 05/05/19 00:00 98.1 104 20 102/77 (85) 97 05/04/19 21:24 109 105/74 05/04/19 21:00 Nasal Cannula 3.0 05/04/19 20:25 98 Nasal Cannula 3.0 32 05/04/19 20:00 98.4 123 24 141/117 (125) 98 05/04/19 18:04 111 120/83 05/04/19 16:00 97.3 111 22 120/83 (95) 99 05/04/19 12:00 98.6 105 24 107/70 (82) 98 Intake and Output 05/04/19 05/05/19 19:00 07:00 Intake Total 275.0 ml 672.000 ml Output Total 1600 ml 1050 ml Balance -1325.0 ml -378.000 ml Intake Oral 0 ml IV Total 275.0 ml 672.000 ml Output Urine Total 1600 ml 1050 ml # Bowel Movements 1 Laboratory Tests 05/05/19 04:33: White Blood Count 12.6H, Red Blood Count 3.74L, Hemoglobin 11.4L, Hematocrit 32.0L, Mean Corpuscular Volume 86, Mean Corpuscular Hemoglobin 30.6, Mean Corpuscular Hemoglobin Concent 35.8, Red Cell Distribution Width 17.7H, Platelet Count 613H, Mean Platelet Volume 5.3L, Neutrophils (%) (Auto) 73.3, Lymphocytes (%) (Auto) 17.9L, Monocytes (%) (Auto) 6.7, Eosinophils (%) (Auto) 0.5, Basophils (%) (Auto) 1.5, Sodium Level 136, Potassium Level 4.1, Chloride Level 101, Carbon Dioxide Level 27, Anion Gap 8, Blood Urea Nitrogen 11, Creatinine 0.7, Estimat Glomerular Filtration Rate > 60, Glucose Level 60L, Calcium Level 9.3, Phosphorus Level 3.3, Magnesium Level 1.9, Total Bilirubin 0.6, Aspartate Amino Transf (AST/SGOT) 38H, Alanine Aminotransferase (ALT/SGPT) 79H, Alkaline Phosphatase 100, Total Protein 8.4H, Albumin 2.6L, Globulin 5.8, Albumin/Globulin Ratio 0.4L Height (Feet): 5 Height (Inches): 5.00 Weight (Pounds): 124 Objective General Appearance: no apparent distress EENT: normal ENT inspection Neck: non-tender Cardiovascular: normal rate Respiratory/Chest: decreased breath sounds Abdomen: other - Gtube noted Extremities: swelling Edema: trace edema Neurologic: responsive Skin: warm/dry Henrry Allison May 05, 2019 09:22
--- NOTE | 2019-05-05 09:44 | Infectious Diseases Prog Note ---
Assessment/Plan Assessment/Plan Assessment: Sepsis Fungemia- r/o endocardiis Blood Cx 04/22/19 - C. alb Blood Cx 04/25/19 2/2 C. albicns Bcx 04/28 p TTE 04/12/19 - No Vegitations PNA - 04/22/19 Sp Cx P.a. and acenetobacter -04/16 CXR: Left greater than right bibasilar opacities may represent atelectasis versus pneumonia. Findings are decreased compared to prior exam. -CXR: Left basilar atelectasis and possible consolidation -sp cx PsA (ramirez S) -influenza sc neg -u/a neg Fever; SP Leukocytosis; decreasing Gram positive bacteremia- contaminant -04/11 Bcx / CONS; 04/12 Bcx NTD HTN dysphagia s/p GT cerebellar ataxia seizure disorder Alzheimer's dementia SNF resident Plan: - Need to improve respiratory status inorder to have GAGAN done - Will repeat CXR and Sputum Cx - Get GAGAN to r/o Endocarditis - Continue Micafungin #10 - Continue Zosyn #10 and Bactrim # 10 - 04/24 SP Meropenem #3 and Vancomycin #3 - 04/22/19 SP Zosyn #3 -04/19 SP Cefepime #9 for PsA PNA -04/18 SP Azithromycin #7/7 -04/16 SP IV Vancomycin #6 -04/11 SP Ceftriaxone x1 -Monitor CBC/CMP, temperatures -GT care -aspiration precautions -CBC, CMP am -Cdiff if diarrhea Thank you for consulting [facility]. Will continue to follow along with you. Subjective Allergies: Coded Allergies: No Known Allergies (Unverified , 04/11/19) Subjective Afebrile Leukocytosis of 12 Pt on NC 3L Unable to have GAGAN this AM due to poor respiratory status Objective Vital Signs Last 24 Hour Vital Signs Date Time Temp Pulse Resp B/P (MAP) Pulse Ox O2 Delivery O2 Flow Rate FiO2 05/05/19 08:13 96 Nasal Cannula 3.0 32 05/05/19 05:11 112 113/82 05/05/19 04:00 98.1 112 18 113/82 (92) 95 05/05/19 00:00 98.1 104 20 102/77 (85) 97 05/04/19 21:24 109 105/74 05/04/19 21:00 Nasal Cannula 3.0 05/04/19 20:25 98 Nasal Cannula 3.0 32 05/04/19 20:00 98.4 123 24 141/117 (125) 98 05/04/19 18:04 111 120/83 05/04/19 16:00 97.3 111 22 120/83 (95) 99 05/04/19 12:00 98.6 105 24 107/70 (82) 98 Height (Feet): 5 Height (Inches): 5.00 Weight (Pounds): 124 Objective GENERAL: NAD on 3L NC HEENT: NCAT, MMM, EOMI CARDIOVASCULAR: RRR, S1,S2 LUNGS: Coarse B/L ABDOMEN: Bowel sounds distant. Laboratory Tests Test 05/05/19 04:33 White Blood Count 12.6 K/UL (4.8-10.8) H Red Blood Count 3.74 M/UL (4.70-6.10) L Hemoglobin 11.4 G/DL (14.2-18.0) L Hematocrit 32.0 % (42.0-52.0) L Mean Corpuscular Volume 86 FL (80-99) Mean Corpuscular Hemoglobin 30.6 PG (27.0-31.0) Mean Corpuscular Hemoglobin Concent 35.8 G/DL (32.0-36.0) Red Cell Distribution Width 17.7 % (11.6-14.8) H Platelet Count 613 K/UL (150-450) H Mean Platelet Volume 5.3 FL (6.5-10.1) L Neutrophils (%) (Auto) 73.3 % (45.0-75.0) Lymphocytes (%) (Auto) 17.9 % (20.0-45.0) L Monocytes (%) (Auto) 6.7 % (1.0-10.0) Eosinophils (%) (Auto) 0.5 % (0.0-3.0) Basophils (%) (Auto) 1.5 % (0.0-2.0) Sodium Level 136 MMOL/L (136-145) Potassium Level 4.1 MMOL/L (3.5-5.1) Chloride Level 101 MMOL/L (98-107) Carbon Dioxide Level 27 MMOL/L (21-32) Anion Gap 8 mmol/L (5-15) Blood Urea Nitrogen 11 mg/dL (7-18) Creatinine 0.7 MG/DL (0.55-1.30) Estimat Glomerular Filtration Rate > 60 mL/min (>60) Glucose Level 60 MG/DL (74-106) L Calcium Level 9.3 MG/DL (8.5-10.1) Phosphorus Level 3.3 MG/DL (2.5-4.9) Magnesium Level 1.9 MG/DL (1.8-2.4) Total Bilirubin 0.6 MG/DL (0.2-1.0) Aspartate Amino Transf (AST/SGOT) 38 U/L (15-37) H Alanine Aminotransferase (ALT/SGPT) 79 U/L (12-78) H Alkaline Phosphatase 100 U/L (46-116) Total Protein 8.4 G/DL (6.4-8.2) H Albumin 2.6 G/DL (3.4-5.0) L Globulin 5.8 g/dL Albumin/Globulin Ratio 0.4 (1.0-2.7) L Current Medications Medications (Trade) Dose Ordered Sig/Kory Route PRN Reason Start Time Stop Time Status Last Admin Dose Admin Acetaminophen (Tylenol) 650 mg Q6H PRN GT Mild Pain/Temp > 100.5 04/16/19 17:30 05/11/19 17:29 04/30/19 01:08 Bisacodyl (Dulcolax) 10 mg DAILY ORAL 05/01/19 09:00 05/31/19 08:59 05/03/19 08:55 Dextrose (Dextrose 50%) 25 ml Q30M PRN IV Hypoglycemia 04/16/19 17:30 05/13/19 16:29 05/04/19 04:47 Dextrose (Dextrose 50%) 50 ml Q30M PRN IV Hypoglycemia 04/16/19 17:30 05/13/19 16:29 Docusate Sodium (Colace) 100 mg TWICE A DAY GT 05/01/19 18:00 05/31/19 17:59 05/04/19 18:03 Donepezil HCl (Aricept) 10 mg DAILY GT 04/17/19 09:00 05/12/19 08:59 05/03/19 08:55 Heparin Sodium (Porcine) (Heparin 5000 units/ml) 5,000 units EVERY 12 HOURS SUBQ 12/15/19 21:00 05/12/19 10:59 05/04/19 20:28 Insulin Aspart (NovoLOG) Q6HR SUBQ 04/16/19 18:00 05/13/19 17:59 05/03/19 18:10 Lactobacillus Acidophilus (Culturelle) 1 tab DAILY GT 04/17/19 09:00 05/12/19 08:59 05/03/19 08:55 Lactulose (Cephulac) 10 gm THREE TIMES A DAY GT 05/01/19 13:00 05/31/19 12:59 05/04/19 18:03 Lansoprazole (Prevacid) 30 mg DAILY GT 04/17/19 09:00 05/12/19 08:59 05/03/19 08:55 Lorazepam (Ativan 2mg/ml 1ml) 1 mg Q4H PRN IV Restlessness 04/28/19 12:15 05/05/19 12:14 05/04/19 20:21 Micafungin Sodium 100 mg/Dextrose 110 ml @ 110 mls/hr Q24H IVPB 04/30/19 12:00 05/07/19 11:59 05/04/19 14:11 Morphine Sulfate (Morphine Sulfate) 4 mg Q4H PRN IVP Moderate Pain (Pain Scale 4-6) 05/03/19 02:30 05/06/19 17:59 05/04/19 02:10 Morphine Sulfate (Morphine Sulfate) 6 mg Q4H PRN IVP Severe Pain (Pain Scale 7-10) 05/03/19 02:15 05/10/19 02:14 05/04/19 18:05 Multivitamins (Multivitamins W/ Minerals 15ml Liquid) 15 ml DAILY GT 04/17/19 09:00 05/12/19 08:59 05/03/19 08:55 Ondansetron HCl (Zofran) 4 mg Q6H PRN GT Nausea & Vomiting 04/16/19 17:30 05/12/19 17:29 Phenytoin 300 mg/ Sodium Chloride 55 ml @ 110 mls/hr DAILY IV 04/17/19 09:00 05/17/19 08:59 05/04/19 10:50 Piperacillin Sod/ Tazobactam Sod 3.375 gm/Dextrose 110 ml @ 27.5 mls/hr EVERY 8 HOURS IVPB 04/30/19 22:00 05/07/19 21:59 05/05/19 05:14 Polyethylene Glycol (Miralax) 17 gm BEDTIME GT 05/01/19 21:00 05/31/19 20:59 05/03/19 21:09 Primidone (Mysoline) 100 mg QHS GT 04/16/19 21:00 05/12/19 20:59 05/04/19 21:36 Sodium Phosphate (Fleet's Sodium Phosl Enema) 133 ml BIDPRN PRN RECTAL Constipation 05/01/19 18:15 05/31/19 18:14 05/01/19 23:17 Trimethoprim/ Sulfamethoxazole 12 ml/Dextrose 562 ml @ 374.667 mls/hr [id number] BACTRIM IV 04/25/19 16:00 05/07/19 15:59 05/04/19 23:35 Verapamil HCl (Calan) 80 mg EVERY 8 HOURS GT 04/18/19 14:45 05/16/19 14:44 05/04/19 18:04 Rayshawn Soni MD May 05, 2019 09:44
[2019-05-05] MEDS: Lactobacillus-GG tablet GT SCH (10:55)
[2019-05-05] MEDS: SULFAMETHOXAZOLE IV SCH ×2 (10:55→17:20)
[2019-05-05] MEDS: D5W IV SCH ×2 (10:55→17:20)
[2019-05-05] MEDS: TRIMETHOPRIM IV SCH ×2 (10:55→17:20)
[2019-05-05] MEDS: Lactulose 10gm/15ml UDC GT SCH ×3 (10:55→17:20)
[2019-05-05] MEDS: Docusate 100mg/10ml Liq GT SCH ×2 (10:55→17:19)
[2019-05-05] MEDS: Multivitamins W/Minerals 15 ML UDC GT SCH (10:56)
[2019-05-05] MEDS: Donepezil 10mg tab GT SCH (10:56)
[2019-05-05] MEDS: Bisacodyl EC 5mg tab ORAL SCH (10:56)
[2019-05-05] MEDS: Heparin 5000 units/ml inj SUBQ SCH ×2 (10:57→20:22)
[2019-05-05] MEDS: PHENYTOIN IV SCH (11:26)
[2019-05-05] MEDS: NS IV SCH (11:26)
--- NOTE | 2019-05-05 11:53 | NUR ---
RADIOLOGY DEPT., CHEST X-RAY DONE.-P.DYE
--- NOTE | 2019-05-05 11:54 | NUR ---
MAP CLERKFUR COMBER SI: SEPSIS T. 98.9 HR 114 RR 21 B/P 134/111 NC 3L WBC 12.6 AST 38 ALT 79 GLU 60 IS: ZOSYN IV MICAFUNGIN IV BACTRIM IV DILANTIN IV HEPARIN SUBC MED/SURG STATUS
[2019-05-05 12:00] VITALS: BP 118/84
[2019-05-05] MEDS: Micafungin 100 MG in D5W 110 ML IVPB SCH (12:00)
--- NOTE | 2019-05-05 12:00 | Pulmonology Progress Note ---
Assessment/Plan Problems: (1) Fungemia (2) Sepsis (3) Nosocomial pneumonia (4) Chronic tachycardia (5) Epilepsy (6) Hereditary cerebellar ataxia (7) Cavitary lung disease (8) GE-Lfquixs-Rhaast disease (9) Feeding by G-tube Assessment/Plan GAGAN done still tachy at 120 Yeast in Blood cultures sputum has pseudomonas, pansensitive iv abx symptomatic treatment feeding by Gtube aspiration precaution Verapamil for chronic tachycardia, double the dose since, heart rate is low 100 monitor heart rate prbc prn Hem< 8 dvt prophylaxis. reviewed echo: normal EF Subjective ROS Limited/Unobtainable: Yes Constitutional: Reports: no symptoms HEENT: Repors: no symptoms Respiratory: Reports: no symptoms Allergies: Coded Allergies: No Known Allergies (Unverified , 04/11/19) Objective Last 24 Hour Vital Signs Date Time Temp Pulse Resp B/P (MAP) Pulse Ox O2 Delivery O2 Flow Rate FiO2 05/05/19 09:00 Nasal Cannula 3.0 05/05/19 08:13 96 Nasal Cannula 3.0 32 05/05/19 08:00 98.9 114 21 154/111 (125) 96 05/05/19 05:11 112 113/82 05/05/19 04:00 98.1 112 18 113/82 (92) 95 05/05/19 00:00 98.1 104 20 102/77 (85) 97 05/04/19 21:24 109 105/74 05/04/19 21:00 Nasal Cannula 3.0 05/04/19 20:25 98 Nasal Cannula 3.0 32 05/04/19 20:00 98.4 123 24 141/117 (125) 98 05/04/19 18:04 111 120/83 05/04/19 16:00 97.3 111 22 120/83 (95) 99 05/04/19 12:00 98.6 105 24 107/70 (82) 98 Intake and Output 05/04/19 05/05/19 19:00 07:00 Intake Total 275.0 ml 672.000 ml Output Total 1600 ml 1050 ml Balance -1325.0 ml -378.000 ml Intake Oral 0 ml IV Total 275.0 ml 672.000 ml Output Urine Total 1600 ml 1050 ml # Bowel Movements 1 Objective General Appearance: no acute distress HEENT: normocephalic, anicteric Respiratory/Chest: chest wall non-tender, rhonchi Cardiovascular: normal peripheral pulses, normal rate, regular rhythm Abdomen: normal bowel sounds, soft, non tender Genitourinary: normal external genitalia Extremities: no cyanosis Laboratory Tests 05/05/19 04:33: White Blood Count 12.6H, Red Blood Count 3.74L, Hemoglobin 11.4L, Hematocrit 32.0L, Mean Corpuscular Volume 86, Mean Corpuscular Hemoglobin 30.6, Mean Corpuscular Hemoglobin Concent 35.8, Red Cell Distribution Width 17.7H, Platelet Count 613H, Mean Platelet Volume 5.3L, Neutrophils (%) (Auto) 73.3, Lymphocytes (%) (Auto) 17.9L, Monocytes (%) (Auto) 6.7, Eosinophils (%) (Auto) 0.5, Basophils (%) (Auto) 1.5, Sodium Level 136, Potassium Level 4.1, Chloride Level 101, Carbon Dioxide Level 27, Anion Gap 8, Blood Urea Nitrogen 11, Creatinine 0.7, Estimat Glomerular Filtration Rate > 60, Glucose Level 60L, Calcium Level 9.3, Phosphorus Level 3.3, Magnesium Level 1.9, Total Bilirubin 0.6, Aspartate Amino Transf (AST/SGOT) 38H, Alanine Aminotransferase (ALT/SGPT) 79H, Alkaline Phosphatase 100, Total Protein 8.4H, Albumin 2.6L, Globulin 5.8, Albumin/Globulin Ratio 0.4L Current Medications Medications (Trade) Dose Ordered Sig/Kory Route PRN Reason Start Time Stop Time Status Last Admin Dose Admin Acetaminophen (Tylenol) 650 mg Q6H PRN GT Mild Pain/Temp > 100.5 04/16/19 17:30 05/11/19 17:29 04/30/19 01:08 Bisacodyl (Dulcolax) 10 mg DAILY ORAL 05/01/19 09:00 05/31/19 08:59 05/05/19 10:56 Dextrose (Dextrose 50%) 25 ml Q30M PRN IV Hypoglycemia 04/16/19 17:30 05/13/19 16:29 05/04/19 04:47 Dextrose (Dextrose 50%) 50 ml Q30M PRN IV Hypoglycemia 04/16/19 17:30 05/13/19 16:29 Docusate Sodium (Colace) 100 mg TWICE A DAY GT 05/01/19 18:00 05/31/19 17:59 05/05/19 10:55 Donepezil HCl (Aricept) 10 mg DAILY GT 04/17/19 09:00 05/12/19 08:59 05/05/19 10:56 Heparin Sodium (Porcine) (Heparin 5000 units/ml) 5,000 units EVERY 12 HOURS SUBQ 04/16/19 21:00 05/12/19 10:59 05/05/19 10:57 Insulin Aspart (NovoLOG) Q6HR SUBQ 04/16/19 18:00 05/13/19 17:59 05/03/19 18:10 Lactobacillus Acidophilus (Culturelle) 1 tab DAILY GT 04/17/19 09:00 05/12/19 08:59 05/05/19 10:55 Lactulose (Cephulac) 10 gm THREE TIMES A DAY GT 05/01/19 13:00 05/31/19 12:59 05/05/19 10:55 Lansoprazole (Prevacid) 30 mg DAILY GT 04/17/19 09:00 05/12/19 08:59 05/05/19 10:55 Lorazepam (Ativan 2mg/ml 1ml) 1 mg Q4H PRN IV Restlessness 04/28/19 12:15 05/05/19 12:14 05/04/19 20:21 Micafungin Sodium 100 mg/Dextrose 110 ml @ 110 mls/hr Q24H IVPB 04/30/19 12:00 05/07/19 11:59 05/04/19 14:11 Morphine Sulfate (Morphine Sulfate) 4 mg Q4H PRN IVP Moderate Pain (Pain Scale 4-6) 05/03/19 02:30 05/06/19 17:59 05/04/19 02:10 Morphine Sulfate (Morphine Sulfate) 6 mg Q4H PRN IVP Severe Pain (Pain Scale 7-10) 05/03/19 02:15 05/10/19 02:14 05/04/19 18:05 Multivitamins (Multivitamins W/ Minerals 15ml Liquid) 15 ml DAILY GT 04/17/19 09:00 05/12/19 08:59 05/05/19 10:56 Ondansetron HCl (Zofran) 4 mg Q6H PRN GT Nausea & Vomiting 04/16/19 17:30 05/12/19 17:29 Phenytoin 300 mg/ Sodium Chloride 55 ml @ 110 mls/hr DAILY IV 04/17/19 09:00 05/17/19 08:59 05/05/19 11:26 Piperacillin Sod/ Tazobactam Sod 3.375 gm/Dextrose 110 ml @ 27.5 mls/hr EVERY 8 HOURS IVPB 04/30/19 22:00 05/07/19 21:59 05/05/19 05:14 Polyethylene Glycol (Miralax) 17 gm BEDTIME GT 05/01/19 21:00 05/31/19 20:59 05/03/19 21:09 Primidone (Mysoline) 100 mg QHS GT 04/16/19 21:00 05/12/19 20:59 05/04/19 21:36 Sodium Phosphate (Fleet's Sodium Phosl Enema) 133 ml BIDPRN PRN RECTAL Constipation 05/01/19 18:15 05/31/19 18:14 05/01/19 23:17 Trimethoprim/ Sulfamethoxazole 12 ml/Dextrose 562 ml @ 374.667 mls/hr [id number] BACTRIM IV 04/25/19 16:00 05/07/19 15:59 05/05/19 10:55 Verapamil HCl (Calan) 80 mg EVERY 8 HOURS GT 04/18/19 14:45 05/16/19 14:44 05/04/19 18:04 Carlos Sauer MD May 05, 2019 12:00
--- NOTE | 2019-05-05 12:04 | NUR ---
RD ASSESSMENT & RECOMMENDATIONS SEE CARE ACTIVITY FOR COMPLETE ASSESSMENT DAILY ESTIMATED NEEDS: Needs based on Severely underweight/ 45kg 35-40 kcals/kg 2662-9412 total kcals 1.5-2.0 g protein/kg 67-90 g total protein 25-35 mL/kg 0147-7330 total fluid mLs NUTRITION DIAGNOSIS: * Increased kcal/prot needs R/T severely underweight status and wt loss as evidenced by pt ~67% IBW, BMI of 15.5, w/ severe generalized wasting, possible significant wt loss of 50lbs/33% in <8 months as per report. 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 CURRENT TF:Jevity 1.2 @ 60ml/hr x 24 hrs ENTERAL NUTRITION RECOMMENDATIONS: Jevity 1.2 @ 60ml/hr x 24 hrs to provide 1440ml, 1728kcal, 80g prot, 1162ml free water * Maintain current TF @goal rate of 60ml/hr x 24 hrs as tolerated * HOB over 30 degrees * Without IVF, water flush of 100ml q 6 hrs ADDITIONAL RECOMMENDATIONS: * Calibrated bedscale wt for accurate CBW -> weekly wt monitoring given h/o wt loss, severely underweight * Monitor lytes daily, replete as needed-> lytes wnl * REC BOWEL REGIMEN-> now on colace, lactulose, ducolax * Skin integrity: Add UMER in 4oz H2O BID via GT prophy * Rec to DC Novolog SSI to prevent hypoglycemia. -> continue w/ accucheck for close BG monitoring
--- NOTE | 2019-05-05 12:16 | Diagnostic Imaging Report ---
Indication: Shortness of breath Technique: XRAY Chest 1v Comparison: 04/27/2019 Findings: Heart size and mediastinal contours are stable. Again there is elevation of the left hemidiaphragm with adjacent streaky opacities at the left lung base which may be related to compressive atelectasis, scarring and/or pneumonia. No new focal consolidation is identified. No radiographically appreciable pleural effusion or pneumothorax. Osseous structures are stable. Gastrostomy tube is noted. Impression: No significant interval change in the radiographic appearance the chest compared to the prior exam. Findings as above.
--- NOTE | 2019-05-05 12:29 | General Progress Note ---
Assessment/Plan Assessment/Plan: 1. History of CVA. 2. Dysphagia with G-tube. 3. Hypertension. 4. GERD. 5. Epilepsy. 6. Peptic ulcer disease. 7.constipation 8. Elevated LFTS laxative abd us>>> reviewed>>> gallstones repeat labs Subjective ROS Limited/Unobtainable: Yes Allergies: Coded Allergies: No Known Allergies (Unverified , 04/11/19) Objective Last 24 Hour Vital Signs Date Time Temp Pulse Resp B/P (MAP) Pulse Ox O2 Delivery O2 Flow Rate FiO2 05/05/19 09:00 Nasal Cannula 3.0 05/05/19 08:13 96 Nasal Cannula 3.0 32 05/05/19 08:00 98.9 114 21 154/111 (125) 96 05/05/19 05:11 112 113/82 05/05/19 04:00 98.1 112 18 113/82 (92) 95 05/05/19 00:00 98.1 104 20 102/77 (85) 97 05/04/19 21:24 109 105/74 05/04/19 21:00 Nasal Cannula 3.0 05/04/19 20:25 98 Nasal Cannula 3.0 32 05/04/19 20:00 98.4 123 24 141/117 (125) 98 05/04/19 18:04 111 120/83 05/04/19 16:00 97.3 111 22 120/83 (95) 99 Intake and Output 05/04/19 05/05/19 19:00 07:00 Intake Total 275.0 ml 672.000 ml Output Total 1600 ml 1050 ml Balance -1325.0 ml -378.000 ml Intake Oral 0 ml IV Total 275.0 ml 672.000 ml Output Urine Total 1600 ml 1050 ml # Bowel Movements 1 Laboratory Tests 05/05/19 04:33: White Blood Count 12.6H, Red Blood Count 3.74L, Hemoglobin 11.4L, Hematocrit 32.0L, Mean Corpuscular Volume 86, Mean Corpuscular Hemoglobin 30.6, Mean Corpuscular Hemoglobin Concent 35.8, Red Cell Distribution Width 17.7H, Platelet Count 613H, Mean Platelet Volume 5.3L, Neutrophils (%) (Auto) 73.3, Lymphocytes (%) (Auto) 17.9L, Monocytes (%) (Auto) 6.7, Eosinophils (%) (Auto) 0.5, Basophils (%) (Auto) 1.5, Sodium Level 136, Potassium Level 4.1, Chloride Level 101, Carbon Dioxide Level 27, Anion Gap 8, Blood Urea Nitrogen 11, Creatinine 0.7, Estimat Glomerular Filtration Rate > 60, Glucose Level 60L, Calcium Level 9.3, Phosphorus Level 3.3, Magnesium Level 1.9, Total Bilirubin 0.6, Aspartate Amino Transf (AST/SGOT) 38H, Alanine Aminotransferase (ALT/SGPT) 79H, Alkaline Phosphatase 100, Total Protein 8.4H, Albumin 2.6L, Globulin 5.8, Albumin/Globulin Ratio 0.4L Height (Feet): 5 Height (Inches): 5.00 Weight (Pounds): 124 General Appearance: alert EENT: normal ENT inspection Neck: supple Cardiovascular: normal rate Respiratory/Chest: decreased breath sounds Abdomen: normal bowel sounds, non tender, soft Extremities: non-tender Faizan Esqueda MD May 05, 2019 12:29
--- NOTE | 2019-05-05 13:41 | NUR ---
*-* DISCHARGE PLANNING *-* PATIENT HAS BEEN REFERRED BACK TO: [facility] P: [phone] F: [phone] EFAX: [phone]
[2019-05-05] MEDS: Morphine Sulfate 4mg/ml Inj (IV USE ONLY) IVP PRN (13:53)
--- NOTE | 2019-05-05 15:30 | Consultation ---
DATE OF CONSULTATION: 05/05/2019 CARDIOLOGY CONSULTATION CONSULTING PHYSICIAN: Kyree Abad M.D. REFERRING PHYSICIAN: Marito Ortega D.O. ADDITIONAL REFERRING PHYSICIAN: Kyree Soto M.D. REASON FOR CONSULTATION: Evaluation for transesophageal echocardiography in a patient with fungemia. HISTORY OF PRESENT ILLNESS: The patient is a very unfortunate 43-year-old gentleman, who is a resident of a shelter facility, who initially presented to the hospital with shortness of breath and cough. The patient has significant dementia, therefore this consultation note is prepared by using the medical record since his arrival to this facility. Apparently, the patient was seen by Infectious Disease specialist and was found to have Meche albicans in multiple blood cultures in this admission. Dr. Soni, Infectious Disease required transesophageal echocardiography as transthoracic echocardiography images were not adequate to rule out infective endocarditis. His 2-D echocardiography in this facility showed normal LV systolic function with LVEF of 65% and evidence for normal pulmonary artery pressure with RVSP of 7 mmHg. There was no significant valvular regurgitation in this study and left ventricular diastolic function was also reported to be within normal limits. A 12-lead electrocardiogram on arrival to this facility also was significant for sinus rhythm and no acute ischemic features. The patient had negative troponin I level at the time of arrival to the hospital and had pro-brain natriuretic peptide was also within normal limits at 46 suggesting no evidence of congestive heart failure. The patient is currently admitted to medical/surgical unit. I was asked by Dr. Ortega and Dr. Soto to evaluate for transesophageal echocardiography. PAST MEDICAL HISTORY: 1. History of Alzheimer's dementia. 2. Cerebellar ataxia. 3. History of CVA. 4. History of hypertension. 5. Epilepsy. ALLERGIES: No known drug allergies. REVIEW OF SYSTEMS: A 12-system review cannot be obtained in view of the patient's underlying mental status. PAST SURGICAL HISTORY: Presence of a G-tube/PEG placement. SOCIAL HISTORY: No history of tobacco, alcohol, or illicit drug use. MEDICATIONS: List of medication from nursing facility includes donepezil 10 mg G-tube daily, probiotic one tablet G-tube daily, multivitamin liquid 5 mL G-tube daily, Zofran 4 mg G-tube q.6 hours p.r.n. nausea and vomiting, Protonix 40 mg G-tube daily, Mysoline 100 mg G-tube nightly, and 200 mg G-tube t.i.d. Current medication in the hospital includes lactulose 10 mg G-tube 3 times a day, Colace 100 mg G-tube twice a day, bisacodyl 10 mg daily, Zosyn 3.375 g every eight hours IV piggyback, micafungin sodium 110 mL/hour equivalent to 100 mg q. 24 hours IV piggyback daily, Bactrim q.8 hours IV, verapamil 80 mg q.8 hours G-tube, phenytoin 300 mg IV daily, donepezil 10 mg G-tube daily, Prevacid 30 mg G-tube daily, one tablet G-tube daily, multivitamin 15 mL G-tube daily, heparin sodium porcine 5000 units subcutaneous every 12 hours, and primidone 100 mg G-tube nightly. PHYSICAL EXAMINATION: VITAL SIGNS: As of today, blood pressure was 113/82, pulse of 112, and temperature 98.1 degrees Fahrenheit. O2 saturation of 96% on FiO2 of 32%. GENERAL: The patient is a very unfortunate 43-year-old gentleman, who is nonverbal. HEENT: Atraumatic and normocephalic. Anicteric. Pupils are equal, round, and reactive to light and accommodation. Extraocular muscles intact. NECK: JVP less than 5 cm. No carotid bruit. Carotid upstrokes 2+ bilaterally. CARDIOVASCULAR: Normal S1, S2. Regular rate and rhythm. Tachycardic. No murmurs, gallops, or rubs. PMI is at fourth intercostal space in the left midclavicular line. LUNGS: Clear to auscultation bilaterally. ABDOMEN: Soft, nontender, and nondistended. Presence of G-tube. No hepatosplenomegaly. EXTREMITIES: No evidence of edema, clubbing, or cyanosis. LABORATORY AND DIAGNOSTIC DATA: Chest x-ray, there is no cardiomegaly, elevation of left hemidiaphragm, streaky opacity in the left lung base, which may be related to compressive atelectasis or scarring, and possibility of infiltration translating into pneumonia. Laboratory finding from 05/05/2019, sodium 136, potassium 4.1, chloride 101, bicarb 27, BUN 11, creatinine 0.7. Glucose is 60. Calcium is 9.3. C-reactive protein 4.7. Albumin is 2.6. WBC 12.6, hemoglobin 11.4, hematocrit 32.0, and platelet count 613,000. ASSESSMENT AND PLAN: The patient is a very unfortunate 43-year-old gentleman with fungemia on this admission. According to Dr. Soni, Infectious Disease specialist, there is a recommend to rule out infective endocarditis, which was not evident on transthoracic echocardiography. Unfortunately, the patient is demented and not capable of signing the informed consent. However, the consent has been provided by his durable power of associate attorney, his brother, who has agreed to transesophageal echocardiography after explaining the risks, benefits, and alternatives in detail. The procedure will be done by the presence of anesthesiologist. Future Cardiology inpatient management will be continued with Dr. Soto, the designated nature photographer on the case. I would like to thank, Dr. Soto and Dr. Ortega, for the courtesy of this consultation. Kyree Abad M.D. DR: VIRGILIO JOB#: [id number] CC:
[2019-05-05 16:00] VITALS: BP 152/98
--- NOTE | 2019-05-05 16:13 | General Progress Note ---
Assessment/Plan Problem List: (1) Sickle cell anemia ICD Codes: D57.1 - Sickle-cell disease without crisis SNOMED: 121135138 (2) Sepsis ICD Codes: A41.9 - Sepsis, unspecified organism SNOMED: 87529753 (3) Epilepsy ICD Codes: G40.909 - Epilepsy, unspecified, not intractable, without status epilepticus SNOMED: 70481545 (4) Cavitary lung disease ICD Codes: J98.4 - Other disorders of lung SNOMED: 125555641 (5) SU-Xfvlmcs-Svnnby disease (6) Nosocomial pneumonia ICD Codes: J18.9 - Pneumonia, unspecified organism; Y95 - Nosocomial condition SNOMED: 048230926 Assessment/Plan: sick cell anemia crisis improving chronnic pain check labs and reviewed meds and chart no seizure sepsis improving pna Subjective ROS Limited/Unobtainable: Yes Allergies: Coded Allergies: No Known Allergies (Unverified , 04/11/19) Objective Last 24 Hour Vital Signs Date Time Temp Pulse Resp B/P (MAP) Pulse Ox O2 Delivery O2 Flow Rate FiO2 05/05/19 14:40 117 146/97 05/05/19 12:00 98.6 112 19 118/84 (95) 99 05/05/19 09:00 Nasal Cannula 3.0 05/05/19 08:13 96 Nasal Cannula 3.0 32 05/05/19 08:00 98.9 114 21 154/111 (125) 96 05/05/19 05:11 112 113/82 05/05/19 04:00 98.1 112 18 113/82 (92) 95 05/05/19 00:00 98.1 104 20 102/77 (85) 97 05/04/19 21:24 109 105/74 05/04/19 21:00 Nasal Cannula 3.0 05/04/19 20:25 98 Nasal Cannula 3.0 32 05/04/19 20:00 98.4 123 24 141/117 (125) 98 05/04/19 18:04 111 120/83 Intake and Output 05/04/19 05/05/19 19:00 07:00 Intake Total 275.0 ml 672.000 ml Output Total 1600 ml 1050 ml Balance -1325.0 ml -378.000 ml Intake Oral 0 ml IV Total 275.0 ml 672.000 ml Output Urine Total 1600 ml 1050 ml # Bowel Movements 1 Laboratory Tests 05/05/19 04:33: White Blood Count 12.6H, Red Blood Count 3.74L, Hemoglobin 11.4L, Hematocrit 32.0L, Mean Corpuscular Volume 86, Mean Corpuscular Hemoglobin 30.6, Mean Corpuscular Hemoglobin Concent 35.8, Red Cell Distribution Width 17.7H, Platelet Count 613H, Mean Platelet Volume 5.3L, Neutrophils (%) (Auto) 73.3, Lymphocytes (%) (Auto) 17.9L, Monocytes (%) (Auto) 6.7, Eosinophils (%) (Auto) 0.5, Basophils (%) (Auto) 1.5, Sodium Level 136, Potassium Level 4.1, Chloride Level 101, Carbon Dioxide Level 27, Anion Gap 8, Blood Urea Nitrogen 11, Creatinine 0.7, Estimat Glomerular Filtration Rate > 60, Glucose Level 60L, Calcium Level 9.3, Phosphorus Level 3.3, Magnesium Level 1.9, Total Bilirubin 0.6, Aspartate Amino Transf (AST/SGOT) 38H, Alanine Aminotransferase (ALT/SGPT) 79H, Alkaline Phosphatase 100, Total Protein 8.4H, Albumin 2.6L, Globulin 5.8, Albumin/Globulin Ratio 0.4L Height (Feet): 5 Height (Inches): 5.00 Weight (Pounds): 124 Cardiovascular: normal rate Respiratory/Chest: lungs clear Kenn Pritchett MD May 05, 2019 16:13
[2019-05-05] MEDS ORDERED: LORazepam Inj 2mg/ml 1ml IV PRN (16:30)
--- NOTE | 2019-05-05 18:15 | Progress Note ---
DATE: 05/05/2019 SUBJECTIVE: This is a 43-year-old male patient with sepsis and respiratory insufficiency mood lability, decline in cognition below the baseline with altered mental status. That is why, his attending has requested daily psychiatric consultation. MENTAL STATUS EXAMINATION: This is a 43-year-old male. Appearance is disheveled. Attitude, irritable and agitated. Affect, guarded and restricted. Intellect poor. Mood, depressed and anxious. Motor activity, psychomotor agitation. Attention span is poor. Orientation x2. Speech is low volume, slurred. Thought process, disorganized and illogical. Insight and judgment is poor. DIAGNOSIS: Major depressive disorder, mild, recurrent with psychotic features, rule out paranoid schizophrenia. PLAN: Continue to treat this patient with Aricept . Chart reviewed. Discussed with staff. 20 minutes of behavioral management provided. Osbaldo Bird M.D. DR: CHRISTOPHER JOB#: [id number] CC:
--- NOTE | 2019-05-05 19:21 | Cardiac Electrophysiology PN ---
Assessment/Plan Assessment/Plan 1. History of tachycardia of unclear nature. There is no clear documentation of atrial fib or supraventricular tachycardia. His echo showed ejection fraction of 65%. While he was on tele, he had sinus rhythm with sinus tachycardia, currently off telemetry. Continue verapamil 80 mg every 8 hours through G-tube. 2. Hypertension, stable on verapamil. 3. Multiple positive blood cultures for fungi. Awaiting stabilization for GAGAN by Dr Abad 4. Dysphagia, status post PEG placement. 5. History of CVA. 6. Epilepsy. 7. Peptic ulcer disease. 8. Elevated liver function tests. DW Dr Abad Subjective Subjective Appreciate Dr. Abad input. Anesthesiologist however cancelled GAGAN until patient more stable from pulmonary stand point Objective Last 24 Hour Vital Signs Date Time Temp Pulse Resp B/P (MAP) Pulse Ox O2 Delivery O2 Flow Rate FiO2 05/05/19 16:00 98.8 120 21 152/98 (116) 98 05/05/19 14:40 117 146/97 05/05/19 12:00 98.6 112 19 118/84 (95) 99 05/05/19 09:00 Nasal Cannula 3.0 05/05/19 08:13 96 Nasal Cannula 3.0 32 05/05/19 08:00 98.9 114 21 154/111 (125) 96 05/05/19 05:11 112 113/82 05/05/19 04:00 98.1 112 18 113/82 (92) 95 05/05/19 00:00 98.1 104 20 102/77 (85) 97 05/04/19 21:24 109 105/74 05/04/19 21:00 Nasal Cannula 3.0 05/04/19 20:25 98 Nasal Cannula 3.0 32 05/04/19 20:00 98.4 123 24 141/117 (125) 98 Intake and Output 05/04/19 05/05/19 19:00 07:00 Intake Total 275.0 ml 672.000 ml Output Total 1600 ml 1050 ml Balance -1325.0 ml -378.000 ml Intake Oral 0 ml IV Total 275.0 ml 672.000 ml Output Urine Total 1600 ml 1050 ml # Bowel Movements 1 Laboratory Tests Test 05/05/19 04:33 White Blood Count 12.6 K/UL (4.8-10.8) H Red Blood Count 3.74 M/UL (4.70-6.10) L Hemoglobin 11.4 G/DL (14.2-18.0) L Hematocrit 32.0 % (42.0-52.0) L Mean Corpuscular Volume 86 FL (80-99) Mean Corpuscular Hemoglobin 30.6 PG (27.0-31.0) Mean Corpuscular Hemoglobin Concent 35.8 G/DL (32.0-36.0) Red Cell Distribution Width 17.7 % (11.6-14.8) H Platelet Count 613 K/UL (150-450) H Mean Platelet Volume 5.3 FL (6.5-10.1) L Neutrophils (%) (Auto) 73.3 % (45.0-75.0) Lymphocytes (%) (Auto) 17.9 % (20.0-45.0) L Monocytes (%) (Auto) 6.7 % (1.0-10.0) Eosinophils (%) (Auto) 0.5 % (0.0-3.0) Basophils (%) (Auto) 1.5 % (0.0-2.0) Sodium Level 136 MMOL/L (136-145) Potassium Level 4.1 MMOL/L (3.5-5.1) Chloride Level 101 MMOL/L (98-107) Carbon Dioxide Level 27 MMOL/L (21-32) Anion Gap 8 mmol/L (5-15) Blood Urea Nitrogen 11 mg/dL (7-18) Creatinine 0.7 MG/DL (0.55-1.30) Estimat Glomerular Filtration Rate > 60 mL/min (>60) Glucose Level 60 MG/DL (74-106) L Calcium Level 9.3 MG/DL (8.5-10.1) Phosphorus Level 3.3 MG/DL (2.5-4.9) Magnesium Level 1.9 MG/DL (1.8-2.4) Total Bilirubin 0.6 MG/DL (0.2-1.0) Aspartate Amino Transf (AST/SGOT) 38 U/L (15-37) H Alanine Aminotransferase (ALT/SGPT) 79 U/L (12-78) H Alkaline Phosphatase 100 U/L (46-116) Total Protein 8.4 G/DL (6.4-8.2) H Albumin 2.6 G/DL (3.4-5.0) L Globulin 5.8 g/dL Albumin/Globulin Ratio 0.4 (1.0-2.7) L Objective HEAD AND NECK: Showed no JVD. LUNGS: Coarse rhonchi. CARDIOVASCULAR: Regular S1 and S2 with no gallop or murmur. ABDOMEN: Status post G-tube. EXTREMITIES: No pitting edema. Kyree Soto MD May 05, 2019 19:21
--- NOTE | 2019-05-05 19:27 | NUR ---
HAND-OFF: Report given to EDUAR Barney.
--- NOTE | 2019-05-05 19:32 | NUR ---
NURSE NOTES: Received patient in bed, non verbal, total care, on G tube feeding, Jevity 1.2 tolerating well, no residual, IV sites are clean dry and intact. Garcia catheter is in place, secured, draining well. Call light is within reach, bed is in low position, locked, alarm is on. Will continue to monitor for comfort and safety.
[2019-05-05 20:00] VITALS: BP 105/79
[2019-05-05] MEDS: Miralax 17gm pkt GT SCH (20:21)
[2019-05-06] VITALS (8 sets, daily range): BP systolic 110–148; BP diastolic 78–108
[2019-05-06] MEDS: SULFAMETHOXAZOLE IV SCH ×4 (00:14→23:18)
[2019-05-06] MEDS: D5W IV SCH ×4 (00:14→23:18)
[2019-05-06] MEDS: TRIMETHOPRIM IV SCH ×4 (00:14→23:18)
[2019-05-06] MEDS: Piperacillin/Tazobactam 3.375 GM in D5W 110 ML IVPB SCH ×3 (05:22→21:09)
[2019-05-06] MEDS: Verapamil 80mg tab GT SCH ×3 (05:22→21:10)
[2019-05-06] MEDS: NovoLOG Insulin Flexpen SUBQ SCH ×5 (06:04→23:19)
--- NOTE | 2019-05-06 07:16 | NUR ---
HAND-OFF: Report given to Jaz WITT.
--- NOTE | 2019-05-06 07:22 | NUR ---
NURSE NOTES: Received report form EDUAR Dickey (Rita). Patient in bed sleeping. On nasal cannula. No signs of distress or labored breathing. IVs intact, patent, and running IV antibiotics. Garcia intact, patent, and draining urine. Bed in high contreras position. Will continue with plan of care.
[2019-05-06] MEDS: Bisacodyl EC 5mg tab ORAL SCH (08:33)
[2019-05-06] MEDS: Donepezil 10mg tab GT SCH (08:33)
[2019-05-06] MEDS: Lactulose 10gm/15ml UDC GT SCH ×3 (08:34→18:06)
[2019-05-06] MEDS: Multivitamins W/Minerals 15 ML UDC GT SCH (08:34)
[2019-05-06] MEDS: Docusate 100mg/10ml Liq GT SCH ×2 (08:34→18:06)
[2019-05-06] MEDS: Lactobacillus-GG tablet GT SCH (08:34)
[2019-05-06] MEDS: Heparin 5000 units/ml inj SUBQ SCH ×2 (08:35→21:11)
[2019-05-06] MEDS: NS IV SCH (09:40)
[2019-05-06] MEDS: PHENYTOIN IV SCH (09:40)
--- NOTE | 2019-05-06 10:13 | Infectious Diseases Prog Note ---
Assessment/Plan Assessment/Plan Assessment: Sepsis Fungemia- r/o endocardiis Blood Cx 04/22/19 - C. alb Blood Cx 04/25/19 2/2 C. albicns Bcx 04/28 p TTE 04/12/19 - No Vegitations PNA - 04/22/19 Sp Cx P.a. and acenetobacter -04/16 CXR: Left greater than right bibasilar opacities may represent atelectasis versus pneumonia. Findings are decreased compared to prior exam. -CXR: Left basilar atelectasis and possible consolidation -sp cx PsA (ramirez S) -influenza sc neg -u/a neg Fever; SP Leukocytosis; decreasing Gram positive bacteremia- contaminant -04/11 Bcx / CONS; 04/12 Bcx NTD HTN dysphagia s/p GT cerebellar ataxia seizure disorder Alzheimer's dementia SNF resident Plan: - Need to improve respiratory status in order to have GAGAN done - Will repeat CXR and Sputum Cx - Get GAGAN to r/o Endocarditis - Continue Micafungin #11 - Continue Zosyn #11/12 and Bactrim # 11/12 Will stop Zosyn and Bactrim tomorrow - 04/24 SP Meropenem #3 and Vancomycin #3 - 04/22/19 SP Zosyn #3 -04/19 SP Cefepime #9 for PsA PNA -04/18 SP Azithromycin #7/7 -04/16 SP IV Vancomycin #6 -04/11 SP Ceftriaxone x1 -Monitor CBC/CMP, temperatures -GT care -aspiration precautions -CBC, CMP am -Cdiff if diarrhea Thank you for consulting [facility]. Will continue to follow along with you. Subjective Allergies: Coded Allergies: No Known Allergies (Unverified , 04/11/19) Subjective Afebrile Leukocytosis of 12 yesterday Pt on NC 3L Objective Vital Signs Last 24 Hour Vital Signs Date Time Temp Pulse Resp B/P (MAP) Pulse Ox O2 Delivery O2 Flow Rate FiO2 05/06/19 08:00 98.9 104 18 123/90 (101) 99 05/06/19 05:22 102 123/78 05/06/19 04:00 96.8 102 20 123/88 (100) 99 05/06/19 00:00 96.2 106 20 110/78 (89) 97 05/05/19 22:00 87 110/78 1/3/20 21:23 Nasal Cannula 3.0 05/05/19 20:00 97.2 108 20 105/79 (88) 97 05/05/19 16:00 98.8 120 21 152/98 (116) 98 05/05/19 14:40 117 146/97 05/05/19 12:00 98.6 112 19 118/84 (95) 99 Height (Feet): 5 Height (Inches): 5.00 Weight (Pounds): 124 Objective GENERAL: NAD on 3L NC eye open HEENT: NCAT, MMM, EOMI CARDIOVASCULAR: RRR, S1,S2 LUNGS: Coarse B/L ABDOMEN: Bowel sounds distant. Current Medications Medications (Trade) Dose Ordered Sig/Kory Route PRN Reason Start Time Stop Time Status Last Admin Dose Admin Acetaminophen (Tylenol) 650 mg Q6H PRN GT Mild Pain/Temp > 100.5 04/16/19 17:30 05/11/19 17:29 04/30/19 01:08 Bisacodyl (Dulcolax) 10 mg DAILY ORAL 05/01/19 09:00 05/31/19 08:59 05/06/19 08:33 Dextrose (Dextrose 50%) 25 ml Q30M PRN IV Hypoglycemia 04/16/19 17:30 05/13/19 16:29 05/04/19 04:47 Dextrose (Dextrose 50%) 50 ml Q30M PRN IV Hypoglycemia 04/16/19 17:30 05/13/19 16:29 Docusate Sodium (Colace) 100 mg TWICE A DAY GT 05/01/19 18:00 05/31/19 17:59 05/06/19 08:34 Donepezil HCl (Aricept) 10 mg DAILY GT 04/17/19 09:00 05/12/19 08:59 05/06/19 08:33 Heparin Sodium (Porcine) (Heparin 5000 units/ml) 5,000 units EVERY 12 HOURS SUBQ 04/16/19 21:00 05/12/19 10:59 05/06/19 08:35 Insulin Aspart (NovoLOG) Q6HR SUBQ 04/16/19 18:00 05/13/19 17:59 05/06/19 06:04 Lactobacillus Acidophilus (Culturelle) 1 tab DAILY GT 04/17/19 09:00 05/12/19 08:59 05/06/19 08:34 Lactulose (Cephulac) 10 gm THREE TIMES A DAY GT 05/01/19 13:00 05/31/19 12:59 05/06/19 08:34 Lansoprazole (Prevacid) 30 mg DAILY GT 04/17/19 09:00 05/12/19 08:59 05/06/19 08:34 Lorazepam (Ativan 2mg/ml 1ml) 1 mg Q4H PRN IV for Restlessness 05/05/19 16:30 05/12/19 16:29 05/05/19 16:36 Micafungin Sodium 100 mg/Dextrose 110 ml @ 110 mls/hr Q24H IVPB 04/30/19 12:00 05/07/19 11:59 05/05/19 12:00 Morphine Sulfate (Morphine Sulfate) 4 mg Q4H PRN IVP Moderate Pain (Pain Scale 4-6) 05/03/19 02:30 05/06/19 17:59 05/05/19 13:53 Morphine Sulfate (Morphine Sulfate) 6 mg Q4H PRN IVP Severe Pain (Pain Scale 7-10) 05/03/19 02:15 05/10/19 02:14 05/04/19 18:05 Multivitamins (Multivitamins W/ Minerals 15ml Liquid) 15 ml DAILY GT 04/17/19 09:00 05/12/19 08:59 05/06/19 08:34 Ondansetron HCl (Zofran) 4 mg Q6H PRN GT Nausea & Vomiting 04/16/19 17:30 05/12/19 17:29 Phenytoin 300 mg/ Sodium Chloride 55 ml @ 110 mls/hr DAILY IV 04/17/19 09:00 05/17/19 08:59 05/06/19 09:40 Piperacillin Sod/ Tazobactam Sod 3.375 gm/Dextrose 110 ml @ 27.5 mls/hr EVERY 8 HOURS IVPB 04/30/19 22:00 05/07/19 21:59 05/06/19 05:22 Polyethylene Glycol (Miralax) 17 gm BEDTIME GT 05/01/19 21:00 05/31/19 20:59 05/05/19 20:21 Primidone (Mysoline) 100 mg QHS GT 04/16/19 21:00 05/12/19 20:59 05/05/19 20:21 Sodium Phosphate (Fleet's Sodium Phosl Enema) 133 ml BIDPRN PRN RECTAL Constipation 05/01/19 18:15 05/31/19 18:14 05/01/19 23:17 Trimethoprim/ Sulfamethoxazole 12 ml/Dextrose 562 ml @ 374.667 mls/hr [id number] BACTRIM IV 04/25/19 16:00 05/07/19 15:59 05/06/19 08:36 Verapamil HCl (Calan) 80 mg EVERY 8 HOURS GT 04/18/19 14:45 05/16/19 14:44 05/06/19 05:22 Rayshawn Soni MD May 06, 2019 10:13
[2019-05-06] MEDS ORDERED: Sterile Water Irrig 1000ml IRRIG ONE (10:50)
[2019-05-06] MEDS: Morphine Sulfate 4mg/ml Inj (IV USE ONLY) IVP PRN ×2 (13:00→18:08)
[2019-05-06] MEDS: Micafungin 100 MG in D5W 110 ML IVPB SCH (13:00)
[2019-05-06] MEDS ORDERED: NS 275ml ONE (15:03)
--- NOTE | 2019-05-06 16:04 | Pulmonology Progress Note ---
Assessment/Plan Problems: (1) Fungemia (2) Sepsis (3) Nosocomial pneumonia (4) Chronic tachycardia (5) Epilepsy (6) Hereditary cerebellar ataxia (7) Cavitary lung disease (8) LV-Fmpghzt-Wwvbas disease (9) Feeding by G-tube Assessment/Plan GAGAN done still tachy at 120 Yeast in Blood cultures sputum has pseudomonas, pansensitive iv abx symptomatic treatment feeding by Gtube aspiration precaution Verapamil for chronic tachycardia, double the dose since, heart rate is low 100 monitor heart rate prbc prn Hem< 8 dvt prophylaxis. reviewed echo: normal EF Subjective ROS Limited/Unobtainable: No HEENT: Repors: no symptoms Respiratory: Reports: no symptoms Allergies: Coded Allergies: No Known Allergies (Unverified , 04/11/19) Objective Last 24 Hour Vital Signs Date Time Temp Pulse Resp B/P (MAP) Pulse Ox O2 Delivery O2 Flow Rate FiO2 05/06/19 14:37 102 117/90 (99) 05/06/19 14:00 102 117/90 05/06/19 08:42 98 Nasal Cannula 3.0 32 05/06/19 08:00 98.9 104 18 123/90 (101) 99 05/06/19 05:22 102 123/78 05/06/19 04:00 96.8 102 20 123/88 (100) 99 05/06/19 00:00 96.2 106 20 110/78 (89) 97 05/05/19 22:00 87 110/78 05/05/19 21:23 Nasal Cannula 3.0 05/05/19 20:00 97.2 108 20 105/79 (88) 97 Intake and Output 05/05/19 05/06/19 19:00 07:00 Intake Total 2074.001 ml 614.667 ml Output Total 2300 ml Balance 2074.001 ml -1685.333 ml Free Water 200 ml IV Total 1454.001 ml 374.667 ml Tube Feeding 420 ml 240 ml Output Urine Total 2300 ml # Voids 1 # Bowel Movements 1 Objective General Appearance: no acute distress HEENT: normocephalic, anicteric Respiratory/Chest: chest wall non-tender, rhonchi Cardiovascular: normal peripheral pulses, normal rate, regular rhythm Abdomen: normal bowel sounds, soft, non tender Genitourinary: normal external genitalia Extremities: no cyanosis Current Medications Medications (Trade) Dose Ordered Sig/Kory Route PRN Reason Start Time Stop Time Status Last Admin Dose Admin Acetaminophen (Tylenol) 650 mg Q6H PRN GT Mild Pain/Temp > 100.5 04/16/19 17:30 05/11/19 17:29 04/30/19 01:08 Bisacodyl (Dulcolax) 10 mg DAILY ORAL 05/01/19 09:00 05/31/19 08:59 05/06/19 08:33 Dextrose (Dextrose 50%) 25 ml Q30M PRN IV Hypoglycemia 04/16/19 17:30 05/13/19 16:29 05/04/19 04:47 Dextrose (Dextrose 50%) 50 ml Q30M PRN IV Hypoglycemia 04/16/19 17:30 05/13/19 16:29 Docusate Sodium (Colace) 100 mg TWICE A DAY GT 05/01/19 18:00 05/31/19 17:59 05/06/19 08:34 Donepezil HCl (Aricept) 10 mg DAILY GT 04/17/19 09:00 05/12/19 08:59 05/06/19 08:33 Heparin Sodium (Porcine) (Heparin 5000 units/ml) 5,000 units EVERY 12 HOURS SUBQ 04/16/19 21:00 05/12/19 10:59 05/06/19 08:35 Insulin Aspart (NovoLOG) Q6HR SUBQ 04/16/19 18:00 05/13/19 17:59 05/06/19 12:59 Lactobacillus Acidophilus (Culturelle) 1 tab DAILY GT 04/17/19 09:00 05/12/19 08:59 05/06/19 08:34 Lactulose (Cephulac) 10 gm THREE TIMES A DAY GT 05/01/19 13:00 05/31/19 12:59 05/06/19 13:00 Lansoprazole (Prevacid) 30 mg DAILY GT 04/17/19 09:00 05/12/19 08:59 05/06/19 08:34 Lorazepam (Ativan 2mg/ml 1ml) 1 mg Q4H PRN IV for Restlessness 05/05/19 16:30 05/12/19 16:29 05/05/19 16:36 Micafungin Sodium 100 mg/Dextrose 110 ml @ 110 mls/hr Q24H IVPB 04/30/19 12:00 05/07/19 11:59 05/06/19 13:00 Morphine Sulfate (Morphine Sulfate) 4 mg Q4H PRN IVP Moderate Pain (Pain Scale 4-6) 05/03/19 02:30 05/06/19 17:59 05/06/19 13:00 Morphine Sulfate (Morphine Sulfate) 6 mg Q4H PRN IVP Severe Pain (Pain Scale 7-10) 05/03/19 02:15 05/10/19 02:14 05/04/19 18:05 Multivitamins (Multivitamins W/ Minerals 15ml Liquid) 15 ml DAILY GT 04/17/19 09:00 05/12/19 08:59 05/06/19 08:34 Ondansetron HCl (Zofran) 4 mg Q6H PRN GT Nausea & Vomiting 04/16/19 17:30 05/12/19 17:29 Phenytoin 300 mg/ Sodium Chloride 55 ml @ 110 mls/hr DAILY IV 04/17/19 09:00 05/17/19 08:59 05/06/19 09:40 Piperacillin Sod/ Tazobactam Sod 3.375 gm/Dextrose 110 ml @ 27.5 mls/hr EVERY 8 HOURS IVPB 04/30/19 22:00 05/07/19 21:59 05/06/19 14:42 Polyethylene Glycol (Miralax) 17 gm BEDTIME GT 05/01/19 21:00 05/31/19 20:59 05/05/19 20:21 Primidone (Mysoline) 100 mg QHS GT 04/16/19 21:00 05/12/19 20:59 05/05/19 20:21 Sodium Phosphate (Fleet's Sodium Phosl Enema) 133 ml BIDPRN PRN RECTAL Constipation 05/01/19 18:15 05/31/19 18:14 05/01/19 23:17 Trimethoprim/ Sulfamethoxazole 12 ml/Dextrose 562 ml @ 374.667 mls/hr [id number] BACTRIM IV 04/25/19 16:00 05/07/19 15:59 05/06/19 15:54 Verapamil HCl (Calan) 80 mg EVERY 8 HOURS GT 04/18/19 14:45 05/16/19 14:44 1/4/20 05:22 Carlos Sauer MD May 06, 2019 16:04
--- NOTE | 2019-05-06 17:16 | Cardiac Electrophysiology PN ---
Assessment/Plan Assessment/Plan 1. Tachycardia of unclear nature. There is no clear documentation of atrial fib or supraventricular tachycardia. His echo showed ejection fraction of 65%. While he was on tele, he had sinus rhythm with sinus tachycardia, currently off telemetry. Continue verapamil 80 mg every 8 hours through G-tube. 2. Hypertension, stable on verapamil. 3. Multiple positive blood cultures for fungi. Awaiting stabilization for GAGAN by Dr Abad 4. Dysphagia, status post PEG placement. 5. History of CVA. 6. Epilepsy. 7. Peptic ulcer disease. 8. Elevated liver function tests. DW Dr Abad Subjective Subjective Awaiting GAGAN when patient more stable from pulmonary stand point Objective Last 24 Hour Vital Signs Date Time Temp Pulse Resp B/P (MAP) Pulse Ox O2 Delivery O2 Flow Rate FiO2 05/06/19 14:37 102 117/90 (99) 05/06/19 14:00 102 117/90 05/06/19 08:42 98 Nasal Cannula 3.0 32 05/06/19 08:00 98.9 104 18 123/90 (101) 99 05/06/19 05:22 102 123/78 05/06/19 04:00 96.8 102 20 123/88 (100) 99 05/06/19 00:00 96.2 106 20 110/78 (89) 97 05/05/19 22:00 87 110/78 05/05/19 21:23 Nasal Cannula 3.0 05/05/19 20:00 97.2 108 20 105/79 (88) 97 Intake and Output 05/05/19 05/06/19 19:00 07:00 Intake Total 2074.001 ml 614.667 ml Output Total 2300 ml Balance 2074.001 ml -1685.333 ml Free Water 200 ml IV Total 1454.001 ml 374.667 ml Tube Feeding 420 ml 240 ml Output Urine Total 2300 ml # Voids 1 # Bowel Movements 1 Objective HEAD AND NECK: Showed no JVD. LUNGS: Coarse rhonchi. CARDIOVASCULAR: Regular S1 and S2 with no gallop or murmur. ABDOMEN: Status post G-tube. EXTREMITIES: No pitting edema. Kyree Soto MD May 06, 2019 17:16
--- NOTE | 2019-05-06 18:38 | General Progress Note ---
Assessment/Plan Problem List: (1) Sickle cell anemia ICD Codes: D57.1 - Sickle-cell disease without crisis SNOMED: 392566340 (2) Sepsis ICD Codes: A41.9 - Sepsis, unspecified organism SNOMED: 70434463 (3) Epilepsy ICD Codes: G40.909 - Epilepsy, unspecified, not intractable, without status epilepticus SNOMED: 52671076 (4) Cavitary lung disease ICD Codes: J98.4 - Other disorders of lung SNOMED: 451826565 (5) UG-Qwunfsh-Gdsqhw disease (6) Nosocomial pneumonia ICD Codes: J18.9 - Pneumonia, unspecified organism; Y95 - Nosocomial condition SNOMED: 664826260 Status: progressing Assessment/Plan: sick cell anemia crisis improving no seizure sepsis improving pna improving malnutrition reviewed chart and labs and meds Subjective ROS Limited/Unobtainable: Yes Allergies: Coded Allergies: No Known Allergies (Unverified , 04/11/19) Objective Last 24 Hour Vital Signs Date Time Temp Pulse Resp B/P (MAP) Pulse Ox O2 Delivery O2 Flow Rate FiO2 05/06/19 16:00 98.5 100 19 127/93 (104) 96 05/06/19 14:37 102 117/90 (99) 05/06/19 14:00 102 117/90 05/06/19 12:00 98.8 109 19 140/108 (119) 93 05/06/19 09:00 Nasal Cannula 3.0 05/06/19 08:42 98 Nasal Cannula 3.0 32 05/06/19 08:00 98.9 104 18 123/90 (101) 99 05/06/19 05:22 102 123/78 05/06/19 04:00 96.8 102 20 123/88 (100) 99 05/06/19 00:00 96.2 106 20 110/78 (89) 97 05/05/19 22:00 87 110/78 05/05/19 21:23 Nasal Cannula 3.0 05/05/19 20:00 97.2 108 20 105/79 (88) 97 Intake and Output 05/05/19 05/06/19 19:00 07:00 Intake Total 2074.001 ml 614.667 ml Output Total 2300 ml Balance 2074.001 ml -1685.333 ml Free Water 200 ml IV Total 1454.001 ml 374.667 ml Tube Feeding 420 ml 240 ml Output Urine Total 2300 ml # Voids 1 # Bowel Movements 1 Height (Feet): 5 Height (Inches): 5.00 Weight (Pounds): 124 Cardiovascular: regular rhythm Respiratory/Chest: lungs clear Abdomen: soft Kenn Pritchett MD May 06, 2019 18:38
--- NOTE | 2019-05-06 19:36 | NUR ---
HAND-OFF: Report given to EDUAR Phoenix.
--- NOTE | 2019-05-06 20:16 | NUR ---
NURSE NOTES: Patient in bed, awake, unable to make needs known. Non verbal. Abdomen is soft, noted with feeding, infusing as ordered. IV site noted, iv fluid infusing. Skin is warm and dry to touch. On nasal cannula 2 L. Bed in low and locked position. On p200 mattress. Noted with sacral dressing. Suctioned done. Call light is at bedside. Will continue plan of care.
[2019-05-06] MEDS: Miralax 17gm pkt GT SCH (21:09)
--- NOTE | 2019-05-06 22:00 | Progress Note ---
DATE: 05/06/2019 SUBJECTIVE: The patient is a 43-year-old male with sepsis. He has altered mental status, confusion, and decline in cognition below his baseline. MENTAL STATUS EXAMINATION: This is a 43-year-old male. Appearance is disheveled. Attitude, irritable and agitated. Affect, guarded and restricted. Intellect poor. Mood, depressed and anxious. Motor activity, psychomotor agitation. Attention is poor. Orientation x2. Speech is low volume, slurred. Thought process, disorganized and illogical. Insight and judgment are poor. DIAGNOSIS: Paranoid schizophrenia with acute exacerbation. PLAN: Continue treatment with psychotropic medications. . Continue to be followed by Psychiatry throughout hospital course. Twenty minutes of behavioral management provided. Chart was reviewed. Discussed with staff. Osbaldo Bird M.D. DR: CHRISTINA JOB#: [id number] CC:
[2019-05-07] VITALS (7 sets, daily range): BP systolic 110–149; BP diastolic 88–109
[2019-05-07] MEDS: Piperacillin/Tazobactam 3.375 GM in D5W 110 ML IVPB SCH ×2 (06:07→14:01)
[2019-05-07] MEDS: Verapamil 80mg tab GT SCH ×3 (06:10→21:17)
[2019-05-07] MEDS: NovoLOG Insulin Flexpen SUBQ SCH ×4 (06:16→23:49)
--- NOTE | 2019-05-07 07:15 | NUR ---
NURSE NOTES: Received report from EDUAR Phoenix. Patient nonverbal. On nasal cannula. IVs intact, patent, and infusing IV antibiotics. Patient shows signs of pain, will medicate per MD orders. Garcia intact, patent, and draining urine. HOB in high contreras with bed in lowest position. Will continue with plan of care.
--- NOTE | 2019-05-07 07:31 | NUR ---
HAND-OFF: Report given to Terrence Gamboa.
[2019-05-07] MEDS: TRIMETHOPRIM IV SCH (08:36)
[2019-05-07] MEDS: Morphine Sulfate 4mg/ml Inj (IV USE ONLY) IVP PRN ×3 (08:36→22:09)
[2019-05-07] MEDS: SULFAMETHOXAZOLE IV SCH (08:36)
[2019-05-07] MEDS: D5W IV SCH (08:36)
[2019-05-07] MEDS: Heparin 5000 units/ml inj SUBQ SCH ×2 (08:41→20:36)
[2019-05-07] MEDS ORDERED: Tubing IV Secondary IV ONE (09:14)
[2019-05-07] MEDS: NS IV SCH (10:17)
[2019-05-07] MEDS: Docusate 100mg/10ml Liq GT SCH ×2 (10:17→18:22)
[2019-05-07] MEDS: Lactulose 10gm/15ml UDC GT SCH ×3 (10:17→18:22)
[2019-05-07] MEDS: PHENYTOIN IV SCH (10:17)
[2019-05-07] MEDS: Lactobacillus-GG tablet GT SCH (10:18)
[2019-05-07] MEDS: Multivitamins W/Minerals 15 ML UDC GT SCH (10:18)
[2019-05-07] MEDS: Bisacodyl EC 5mg tab ORAL SCH (10:18)
[2019-05-07] MEDS: Donepezil 10mg tab GT SCH (10:18)
[2019-05-07] MEDS: Micafungin 100 MG in D5W 110 ML IVPB SCH (12:29)
--- NOTE | 2019-05-07 15:40 | Pulmonology Progress Note ---
Assessment/Plan Problems: (1) Fungemia (2) Sepsis (3) Nosocomial pneumonia (4) Chronic tachycardia (5) Epilepsy (6) Hereditary cerebellar ataxia (7) Cavitary lung disease (8) HE-Gpxqvsh-Vdxjbw disease (9) Feeding by G-tube Assessment/Plan GAGAN done still tachy at 120 Yeast in Blood cultures sputum has pseudomonas, pansensitive iv abx symptomatic treatment feeding by Gtube aspiration precaution Verapamil for chronic tachycardia, double the dose since, heart rate is low 100 monitor heart rate prbc prn Hem< 8 dvt prophylaxis. reviewed echo: normal EF Subjective ROS Limited/Unobtainable: Yes Constitutional: Reports: no symptoms HEENT: Repors: no symptoms Allergies: Coded Allergies: No Known Allergies (Unverified , 04/11/19) Objective Last 24 Hour Vital Signs Date Time Temp Pulse Resp B/P (MAP) Pulse Ox O2 Delivery O2 Flow Rate FiO2 05/07/19 14:03 97 110/91 (97) 05/07/19 14:00 97 110/91 05/07/19 12:00 98.0 102 19 123/93 (103) 96 05/07/19 09:36 96 Nasal Cannula 3.0 32 05/07/19 09:00 Nasal Cannula 3.0 05/07/19 08:00 98.1 104 18 129/100 (110) 96 05/07/19 06:10 107 138/88 05/07/19 04:00 97.7 107 18 138/88 (105) 98 05/06/19 23:58 98.1 103 20 127/91 (103) 97 05/06/19 21:10 110 148/95 05/06/19 21:00 Nasal Cannula 3.0 05/06/19 20:55 96 Nasal Cannula 3.0 32 05/06/19 20:00 97.9 110 20 148/95 (112) 97 05/06/19 16:00 98.5 100 19 127/93 (104) 96 Intake and Output 05/06/19 05/07/19 19:00 07:00 Intake Total 1100 ml 920 ml Output Total 1300 ml 1500 ml Balance -200 ml -580 ml Free Water 380 ml 200 ml Tube Feeding 720 ml 720 ml Output Urine Total 1300 ml 1500 ml Objective General Appearance: no acute distress HEENT: normocephalic, anicteric Respiratory/Chest: chest wall non-tender, rhonchi Cardiovascular: normal peripheral pulses, normal rate, regular rhythm Abdomen: normal bowel sounds, soft, non tender Genitourinary: normal external genitalia Extremities: no cyanosis Microbiology Date/Time Source Procedure Growth Status 05/05/19 11:15 Blood Blood Culture - Preliminary NO GROWTH AFTER 24 HOURS Resulted 05/05/19 11:00 Blood Blood Culture - Preliminary NO GROWTH AFTER 24 HOURS Resulted 05/06/19 03:45 Sputum Gram Stain - Final Resulted 05/06/19 03:45 Sputum Sputum Culture Pending Resulted Current Medications Medications (Trade) Dose Ordered Sig/Kory Route PRN Reason Start Time Stop Time Status Last Admin Dose Admin Acetaminophen (Tylenol) 650 mg Q6H PRN GT Mild Pain/Temp > 100.5 04/16/19 17:30 05/11/19 17:29 04/30/19 01:08 Bisacodyl (Dulcolax) 10 mg DAILY ORAL 05/01/19 09:00 05/31/19 08:59 05/07/19 10:18 Dextrose (Dextrose 50%) 25 ml Q30M PRN IV Hypoglycemia 04/16/19 17:30 05/13/19 16:29 05/04/19 04:47 Dextrose (Dextrose 50%) 50 ml Q30M PRN IV Hypoglycemia 04/16/19 17:30 05/13/19 16:29 Docusate Sodium (Colace) 100 mg TWICE A DAY GT 05/01/19 18:00 05/31/19 17:59 05/07/19 10:17 Donepezil HCl (Aricept) 10 mg DAILY GT 04/17/19 09:00 05/12/19 08:59 05/07/19 10:18 Heparin Sodium (Porcine) (Heparin 5000 units/ml) 5,000 units EVERY 12 HOURS SUBQ 04/16/19 21:00 05/12/19 10:59 05/07/19 08:41 Insulin Aspart (NovoLOG) Q6HR SUBQ 04/16/19 18:00 05/13/19 17:59 05/07/19 06:16 Lactobacillus Acidophilus (Culturelle) 1 tab DAILY GT 04/17/19 09:00 05/12/19 08:59 05/07/19 10:18 Lactulose (Cephulac) 10 gm THREE TIMES A DAY GT 05/01/19 13:00 05/31/19 12:59 05/07/19 12:43 Lansoprazole (Prevacid) 30 mg DAILY GT 04/17/19 09:00 05/12/19 08:59 05/07/19 10:18 Lorazepam (Ativan 2mg/ml 1ml) 1 mg Q4H PRN IV for Restlessness 05/05/19 16:30 05/12/19 16:29 05/05/19 16:36 Micafungin Sodium 100 mg/Dextrose 110 ml @ 110 mls/hr Q24H IVPB 04/30/19 12:00 05/12/19 11:59 05/07/19 12:29 Morphine Sulfate (Morphine Sulfate) 4 mg Q4H PRN IVP Moderate Pain (Pain Scale 4-6) 05/07/19 15:30 05/14/19 15:29 Morphine Sulfate (Morphine Sulfate) 6 mg Q4H PRN IVP Severe Pain (Pain Scale 7-10) 05/03/19 02:15 05/10/19 02:14 05/07/19 08:36 Multivitamins (Multivitamins W/ Minerals 15ml Liquid) 15 ml DAILY GT 04/17/19 09:00 05/12/19 08:59 05/07/19 10:18 Ondansetron HCl (Zofran) 4 mg Q6H PRN GT Nausea & Vomiting 04/16/19 17:30 05/12/19 17:29 Phenytoin 300 mg/ Sodium Chloride 55 ml @ 110 mls/hr DAILY IV 04/17/19 09:00 05/17/19 08:59 05/07/19 10:17 Piperacillin Sod/ Tazobactam Sod 3.375 gm/Dextrose 110 ml @ 27.5 mls/hr EVERY 8 HOURS IVPB 04/30/19 22:00 05/07/19 21:59 05/07/19 14:01 Polyethylene Glycol (Miralax) 17 gm BEDTIME GT 05/01/19 21:00 05/31/19 20:59 05/06/19 21:09 Primidone (Mysoline) 100 mg QHS GT 04/16/19 21:00 05/12/19 20:59 05/06/19 21:10 Sodium Phosphate (Fleet's Sodium Phosl Enema) 133 ml BIDPRN PRN RECTAL Constipation 05/01/19 18:15 05/31/19 18:14 05/01/19 23:17 Trimethoprim/ Sulfamethoxazole 12 ml/Dextrose 562 ml @ 374.667 mls/hr [id number] BACTRIM IV 04/25/19 16:00 05/07/19 15:59 05/07/19 08:36 Verapamil HCl (Calan) 80 mg EVERY 8 HOURS GT 04/18/19 14:45 05/16/19 14:44 05/07/19 06:10 Carlos Sauer MD May 07, 2019 15:40
--- NOTE | 2019-05-07 16:45 | Progress Note ---
DATE: 05/07/2019 SUBJECTIVE: This is a 43-year-old male patient with sepsis. The patient has altered mental status, confusion, agitation, and mood lability, but he has altered mental status and cognition has declined below his baseline. That is why, his attending has requested daily psychiatric consultation. DIAGNOSIS: Major depressive disorder, mild, recurrent with psychotic features; rule out paranoid schizophrenia. PLAN: Continue treatment with psychotropic medications to prevent any further decline in his cognition. He will continue to be followed by Psychiatry throughout his hospital course. A 20 minutes of behavioral management. Chart reviewed and discussed with staff. Seen and assessed in his room. Osbaldo Bird M.D. DR: Jose Cruz JOB#: [id number] CC:
--- NOTE | 2019-05-07 17:06 | General Progress Note ---
Assessment/Plan Problem List: (1) Sickle cell anemia ICD Codes: D57.1 - Sickle-cell disease without crisis SNOMED: 117548021 (2) Sepsis ICD Codes: A41.9 - Sepsis, unspecified organism SNOMED: 30722026 (3) Epilepsy ICD Codes: G40.909 - Epilepsy, unspecified, not intractable, without status epilepticus SNOMED: 34119929 (4) Cavitary lung disease ICD Codes: J98.4 - Other disorders of lung SNOMED: 034402066 (5) HG-Leekhya-Qtigrl disease (6) Nosocomial pneumonia ICD Codes: J18.9 - Pneumonia, unspecified organism; Y95 - Nosocomial condition SNOMED: 884816372 Status: progressing Assessment/Plan: sick cell anemia crisis improving afebrile no acute events vitals stable sepsis improving pna improving Subjective ROS Limited/Unobtainable: Yes Allergies: Coded Allergies: No Known Allergies (Unverified , 04/11/19) Objective Last 24 Hour Vital Signs Date Time Temp Pulse Resp B/P (MAP) Pulse Ox O2 Delivery O2 Flow Rate FiO2 05/07/19 16:00 97.6 104 20 146/107 (120) 96 05/07/19 14:03 97 110/91 (97) 05/07/19 14:00 97 110/91 05/07/19 12:00 98.0 102 19 123/93 (103) 96 05/07/19 09:36 96 Nasal Cannula 3.0 32 05/07/19 09:00 Nasal Cannula 3.0 05/07/19 08:00 98.1 104 18 129/100 (110) 96 05/07/19 06:10 107 138/88 05/07/19 04:00 97.7 107 18 138/88 (105) 98 05/06/19 23:58 98.1 103 20 127/91 (103) 97 05/06/19 21:10 110 148/95 05/06/19 21:00 Nasal Cannula 3.0 05/06/19 20:55 96 Nasal Cannula 3.0 32 05/06/19 20:00 97.9 110 20 148/95 (112) 97 Intake and Output 05/06/19 05/07/19 19:00 07:00 Intake Total 1100 ml 920 ml Output Total 1300 ml 1500 ml Balance -200 ml -580 ml Free Water 380 ml 200 ml Tube Feeding 720 ml 720 ml Output Urine Total 1300 ml 1500 ml Height (Feet): 5 Height (Inches): 5.00 Weight (Pounds): 124 Cardiovascular: normal rate Respiratory/Chest: lungs clear Abdomen: soft Kenn Pritchett MD May 07, 2019 17:06
--- NOTE | 2019-05-07 18:27 | General Progress Note ---
Assessment/Plan Assessment/Plan: (1) Sacral decubitus ulcer (2) Dementia (3) Encephalopathy (4) Sepsis (5) Cerebral Ataxia (6) Sickle cell disease Pt will be continued on Morphine D/w Dr. Palomino and he concurred. Subjective Date patient seen: May 07, 2019 Time patient seen: 06:00 - pm ROS Limited/Unobtainable: Yes Allergies: Coded Allergies: No Known Allergies (Unverified , 04/11/19) Subjective Patient is in bed and nurse at bedside. He has no signs of pain at this time. Received 4 doses of Morphine 6mg in the last 24hrs. Objective Last 24 Hour Vital Signs Date Time Temp Pulse Resp B/P (MAP) Pulse Ox O2 Delivery O2 Flow Rate FiO2 05/07/19 16:00 97.6 104 20 146/107 (120) 96 05/07/19 14:03 97 110/91 (97) 05/07/19 14:00 97 110/91 05/07/19 12:00 98.0 102 19 123/93 (103) 96 05/07/19 09:36 96 Nasal Cannula 3.0 32 05/07/19 09:00 Nasal Cannula 3.0 05/07/19 08:00 98.1 104 18 129/100 (110) 96 05/07/19 06:10 107 138/88 05/07/19 04:00 97.7 107 18 138/88 (105) 98 05/06/19 23:58 98.1 103 20 127/91 (103) 97 05/06/19 21:10 110 148/95 05/06/19 21:00 Nasal Cannula 3.0 05/06/19 20:55 96 Nasal Cannula 3.0 32 05/06/19 20:00 97.9 110 20 148/95 (112) 97 Intake and Output 05/06/19 05/07/19 19:00 07:00 Intake Total 1100 ml 920 ml Output Total 1300 ml 1500 ml Balance -200 ml -580 ml Free Water 380 ml 200 ml Tube Feeding 720 ml 720 ml Output Urine Total 1300 ml 1500 ml Height (Feet): 5 Height (Inches): 5.00 Weight (Pounds): 124 Objective General Appearance: no apparent distress EENT: normal ENT inspection Neck: non-tender Cardiovascular: normal rate Respiratory/Chest: decreased breath sounds Abdomen: other - Gtube noted Extremities: swelling Edema: trace edema Neurologic: responsive Skin: warm/dry Henrry Allison May 07, 2019 18:27
--- NOTE | 2019-05-07 19:15 | NUR ---
HAND-OFF: Report given to EDUAR Phoenix.
--- NOTE | 2019-05-07 19:50 | NUR ---
NURSE NOTES: Patient in bed, awake, nonverbal. Unable to make needs known. Respiration is uneven, nasal cannula 2 L. Skin is warm and dry to touch. Abdomen is soft, GT site noted, clean. Feeding is infusing as ordered. IV site noted, iv antibiotic infusing. Bed in low and locked position. Call light is at bedside. Will continue plan of care.
[2019-05-07] MEDS: Miralax 17gm pkt GT SCH (20:35)
[2019-05-08] MEDS: Morphine Sulfate 4mg/ml Inj (IV USE ONLY) IVP PRN ×3 (02:29→14:17)
[2019-05-08 04:34] VITALS: BP 133/100
[2019-05-08] MEDS: Verapamil 80mg tab GT SCH ×3 (06:24→21:17)
[2019-05-08] MEDS: NovoLOG Insulin Flexpen SUBQ SCH ×3 (06:26→18:15)
--- NOTE | 2019-05-08 06:40 | NUR ---
NURSE NOTES: Patient in bed, nonverbal. Given PRn pain medication, patient grimace and unable to comfort.Will reassess. Will continue plan of care.
--- NOTE | 2019-05-08 07:00 | NUR ---
NURSE NOTES: Handoff received from EDUAR [place]. Patient received resting in bed, patient is alert but aphasic and unable to make needs known. Patient's IV sites are clean dry and intact, saline locked. Bed in the low and locked position with call light within reach. No acute signs of distress noted. will continue to monitor patient.
--- NOTE | 2019-05-08 07:07 | NUR ---
HAND-OFF: Report given to Terrence Treadwell.
[2019-05-08 08:00] VITALS: BP 134/95
[2019-05-08] MEDS: Lactulose 10gm/15ml UDC GT SCH ×3 (08:40→17:09)
[2019-05-08] MEDS: Multivitamins W/Minerals 15 ML UDC GT SCH (08:40)
[2019-05-08] MEDS: Lactobacillus-GG tablet GT SCH (08:41)
[2019-05-08] MEDS: Donepezil 10mg tab GT SCH (08:41)
[2019-05-08] MEDS: Docusate 100mg/10ml Liq GT SCH ×2 (08:41→17:09)
[2019-05-08] MEDS: Heparin 5000 units/ml inj SUBQ SCH ×2 (08:51→21:18)
[2019-05-08] MEDS: NS IV SCH (08:54)
[2019-05-08] MEDS: PHENYTOIN IV SCH (08:54)
--- NOTE | 2019-05-08 08:58 | General Progress Note ---
Assessment/Plan Assessment/Plan: (1) Sacral decubitus ulcer (2) Dementia (3) Encephalopathy (4) Sepsis (5) Cerebral Ataxia (6) Sickle cell disease Pt will be continued on Morphine D/w Dr. Palomino and he concurred. Subjective Date patient seen: May 08, 2019 Time patient seen: 08:45 - am ROS Limited/Unobtainable: Yes Allergies: Coded Allergies: No Known Allergies (Unverified , 04/11/19) Subjective Patient is in bed and showing no signs of pain or distress. Has gotten 4 Morphine 6mg and 1 Morphine 4mg in the last 24hrs. Objective Last 24 Hour Vital Signs Date Time Temp Pulse Resp B/P (MAP) Pulse Ox O2 Delivery O2 Flow Rate FiO2 05/08/19 08:00 98.9 106 16 134/95 (108) 95 05/08/19 07:39 96 Nasal Cannula 3.0 32 05/08/19 06:24 105 133/100 05/08/19 04:34 97.8 105 18 133/100 (111) 98 05/07/19 23:54 97.9 107 18 139/99 (112) 98 05/07/19 23:35 97 Nasal Cannula 3.0 32 05/07/19 21:17 110 149/109 05/07/19 20:19 Nasal Cannula 3.0 05/07/19 20:00 97.7 110 20 149/109 (122) 99 05/07/19 16:00 97.6 104 20 146/107 (120) 96 05/07/19 14:03 97 110/91 (97) 05/07/19 14:00 97 110/91 05/07/19 12:00 98.0 102 19 123/93 (103) 96 05/07/19 09:36 96 Nasal Cannula 3.0 32 05/07/19 09:00 Nasal Cannula 3.0 Intake and Output 05/07/19 05/08/19 19:00 07:00 Intake Total 1060 ml 860 ml Output Total 900 ml 900 ml Balance 160 ml -40 ml Free Water 340 ml 200 ml Tube Feeding 720 ml 660 ml Output Urine Total 900 ml 900 ml # Voids 1 # Bowel Movements 1 Height (Feet): 5 Height (Inches): 5.00 Weight (Pounds): 124 Objective General Appearance: no apparent distress EENT: normal ENT inspection Neck: non-tender Cardiovascular: normal rate Respiratory/Chest: decreased breath sounds Abdomen: other - Gtube noted Extremities: swelling Edema: trace edema Neurologic: responsive Skin: warm/dry Henrry Allison May 08, 2019 08:58
--- NOTE | 2019-05-08 08:59 | General Progress Note ---
Assessment/Plan Assessment/Plan: 1. History of CVA. 2. Dysphagia with G-tube. 3. Hypertension. 4. GERD. 5. Epilepsy. 6. Peptic ulcer disease. 7.constipation 8. Elevated LFTS laxative abd us>>> reviewed>>> gallstones repeat labs repeat LFTS >> improving stable H&H hepatitis panel GTF GT care abx per ID cardiology note appreciated Subjective Allergies: Coded Allergies: No Known Allergies (Unverified , 04/11/19) Objective Last 24 Hour Vital Signs Date Time Temp Pulse Resp B/P (MAP) Pulse Ox O2 Delivery O2 Flow Rate FiO2 05/08/19 08:00 98.9 106 16 134/95 (108) 95 05/08/19 07:39 96 Nasal Cannula 3.0 32 05/08/19 06:24 105 133/100 05/08/19 04:34 97.8 105 18 133/100 (111) 98 05/07/19 23:54 97.9 107 18 139/99 (112) 98 05/07/19 23:35 97 Nasal Cannula 3.0 32 05/07/19 21:17 110 149/109 05/07/19 20:19 Nasal Cannula 3.0 05/07/19 20:00 97.7 110 20 149/109 (122) 99 05/07/19 16:00 97.6 104 20 146/107 (120) 96 05/07/19 14:03 97 110/91 (97) 05/07/19 14:00 97 110/91 05/07/19 12:00 98.0 102 19 123/93 (103) 96 05/07/19 09:36 96 Nasal Cannula 3.0 32 05/07/19 09:00 Nasal Cannula 3.0 Intake and Output 05/07/19 05/08/19 19:00 07:00 Intake Total 1060 ml 860 ml Output Total 900 ml 900 ml Balance 160 ml -40 ml Free Water 340 ml 200 ml Tube Feeding 720 ml 660 ml Output Urine Total 900 ml 900 ml # Voids 1 # Bowel Movements 1 Height (Feet): 5 Height (Inches): 5.00 Weight (Pounds): 124 General Appearance: alert EENT: normal ENT inspection Neck: supple Cardiovascular: normal rate Respiratory/Chest: decreased breath sounds Abdomen: normal bowel sounds, non tender, soft Extremities: non-tender Vosoghi,Faizan MD May 08, 2019 08:59
[2019-05-08] MEDS: Bisacodyl EC 5mg tab ORAL SCH (09:00)
--- NOTE | 2019-05-08 09:27 | General Progress Note ---
Assessment/Plan Problem List: (1) Pneumonia ICD Codes: J18.9 - Pneumonia, unspecified organism SNOMED: 491137178 (2) Sickle cell anemia ICD Codes: D57.1 - Sickle-cell disease without crisis SNOMED: 112447481 (3) Sepsis ICD Codes: A41.9 - Sepsis, unspecified organism SNOMED: 39574917 Status: unchanged Assessment/Plan: pt diet abx psyc neuro eval cbc bmp am Subjective Constitutional: Reports: weakness Allergies: Coded Allergies: No Known Allergies (Unverified , 04/11/19) All Systems: reviewed and negative except above Subjective o2nc sleepy calm Objective Last 24 Hour Vital Signs Date Time Temp Pulse Resp B/P (MAP) Pulse Ox O2 Delivery O2 Flow Rate FiO2 05/08/19 09:00 Nasal Cannula 3.0 05/08/19 08:00 98.9 106 16 134/95 (108) 95 05/08/19 07:39 96 Nasal Cannula 3.0 32 05/08/19 06:24 105 133/100 05/08/19 04:34 97.8 105 18 133/100 (111) 98 05/07/19 23:54 97.9 107 18 139/99 (112) 98 05/07/19 23:35 97 Nasal Cannula 3.0 32 05/07/19 21:17 110 149/109 05/07/19 20:19 Nasal Cannula 3.0 05/07/19 20:00 97.7 110 20 149/109 (122) 99 05/07/19 16:00 97.6 104 20 146/107 (120) 96 05/07/19 14:03 97 110/91 (97) 05/07/19 14:00 97 110/91 05/07/19 12:00 98.0 102 19 123/93 (103) 96 05/07/19 09:36 96 Nasal Cannula 3.0 32 Intake and Output 05/07/19 05/08/19 19:00 07:00 Intake Total 1060 ml 860 ml Output Total 900 ml 900 ml Balance 160 ml -40 ml Free Water 340 ml 200 ml Tube Feeding 720 ml 660 ml Output Urine Total 900 ml 900 ml # Voids 1 # Bowel Movements 1 Height (Feet): 5 Height (Inches): 5.00 Weight (Pounds): 124 General Appearance: lethargic EENT: normal ENT inspection Neck: normal alignment Cardiovascular: normal peripheral pulses, normal rate, regular rhythm Respiratory/Chest: chest wall non-tender, lungs clear, normal breath sounds Abdomen: normal bowel sounds, non tender, soft Extremities: normal inspection Edema: no edema noted Arm (L), no edema noted Arm (R), no edema noted Leg (L), no edema noted Leg (R), no edema noted Pedal (L), no edema noted Pedal (R), no edema noted Generalized Neurologic: motor weakness Skin: normal pigmentation, warm/dry Marito Ortega DO May 08, 2019 09:27
--- NOTE | 2019-05-08 09:57 | NUR ---
NURSE NOTES: Non-administered dulcolax as pill cannot be crushed.
--- NOTE | 2019-05-08 11:51 | Infectious Diseases Prog Note ---
Assessment/Plan Assessment/Plan Assessment: Sepsis Fungemia- r/o endocardiis Blood Cx 04/22/19 - C. alb Blood Cx 04/25/19 2/2 C. albicns Bcx 04/28 p TTE 04/12/19 - No Vegitations PNA - 04/22/19 Sp Cx P.a. and acenetobacter -04/16 CXR: Left greater than right bibasilar opacities may represent atelectasis versus pneumonia. Findings are decreased compared to prior exam. -CXR: Left basilar atelectasis and possible consolidation -sp cx PsA (ramirez S) -influenza sc neg -u/a neg Fever; SP Leukocytosis; decreasing Gram positive bacteremia- contaminant -04/11 Bcx / CONS; 04/12 Bcx NTD HTN dysphagia s/p GT cerebellar ataxia seizure disorder Alzheimer's dementia SNF resident Plan: - Need to improve respiratory status in order to have GAGAN done - Will repeat CXR and Sputum Cx - Get GAGAN to r/o Endocarditis - Continue Micafungin #13 - 05/07/19 Zosyn #12 and Bactrim # 12 - 04/24 SP Meropenem #3 and Vancomycin #3 - 04/22/19 SP Zosyn #3 -04/19 SP Cefepime #9 for PsA PNA -04/18 SP Azithromycin #7/7 -04/16 SP IV Vancomycin #6 -04/11 SP Ceftriaxone x1 -Monitor CBC/CMP, temperatures -GT care -aspiration precautions -CBC, CMP am -Cdiff if diarrhea Thank you for consulting [facility]. Will continue to follow along with you. Subjective Allergies: Coded Allergies: No Known Allergies (Unverified , 04/11/19) Subjective Afebrile no New labs Pt still on NC 3L Objective Vital Signs Last 24 Hour Vital Signs Date Time Temp Pulse Resp B/P (MAP) Pulse Ox O2 Delivery O2 Flow Rate FiO2 05/08/19 09:00 Nasal Cannula 3.0 05/08/19 08:00 98.9 106 16 134/95 (108) 95 05/08/19 07:39 96 Nasal Cannula 3.0 32 05/08/19 06:24 105 133/100 05/08/19 04:34 97.8 105 18 133/100 (111) 98 05/07/19 23:54 97.9 107 18 139/99 (112) 98 05/07/19 23:35 97 Nasal Cannula 3.0 32 05/07/19 21:17 110 149/109 05/07/19 20:19 Nasal Cannula 3.0 05/07/19 20:00 97.7 110 20 149/109 (122) 99 05/07/19 16:00 97.6 104 20 146/107 (120) 96 05/07/19 14:03 97 110/91 (97) 05/07/19 14:00 97 110/91 05/07/19 12:00 98.0 102 19 123/93 (103) 96 Height (Feet): 5 Height (Inches): 5.00 Weight (Pounds): 124 Objective GENERAL: NAD on 3L NC HEENT: NCAT, MMM, EOMI CARDIOVASCULAR: RRR, S1,S2 LUNGS: Coarse B/L ABDOMEN: Bowel sounds distant. Microbiology Date/Time Source Procedure Growth Status 05/06/19 03:45 Sputum Gram Stain - Final Resulted 05/06/19 03:45 Sputum Culture - Preliminary Gram Negative Bacillus 1 Usual Respiratory Lucia Resulted Current Medications Medications (Trade) Dose Ordered Sig/Kory Route PRN Reason Start Time Stop Time Status Last Admin Dose Admin Acetaminophen (Tylenol) 650 mg Q6H PRN GT Mild Pain/Temp > 100.5 04/16/19 17:30 05/11/19 17:29 04/30/19 01:08 Bisacodyl (Dulcolax) 10 mg DAILY ORAL 05/01/19 09:00 05/31/19 08:59 05/07/19 10:18 Dextrose (Dextrose 50%) 25 ml Q30M PRN IV Hypoglycemia 04/16/19 17:30 05/13/19 16:29 05/04/19 04:47 Dextrose (Dextrose 50%) 50 ml Q30M PRN IV Hypoglycemia 04/16/19 17:30 05/13/19 16:29 Docusate Sodium (Colace) 100 mg TWICE A DAY GT 05/01/19 18:00 05/31/19 17:59 05/08/19 08:41 Donepezil HCl (Aricept) 10 mg DAILY GT 04/17/19 09:00 05/12/19 08:59 05/08/19 08:41 Heparin Sodium (Porcine) (Heparin 5000 units/ml) 5,000 units EVERY 12 HOURS SUBQ 04/16/19 21:00 05/12/19 10:59 05/08/19 08:51 Insulin Aspart (NovoLOG) Q6HR SUBQ 04/16/19 18:00 05/13/19 17:59 05/08/19 06:26 Lactobacillus Acidophilus (Culturelle) 1 tab DAILY GT 04/17/19 09:00 05/12/19 08:59 05/08/19 08:41 Lactulose (Cephulac) 10 gm THREE TIMES A DAY GT 05/01/19 13:00 05/31/19 12:59 05/08/19 08:40 Lansoprazole (Prevacid) 30 mg DAILY GT 04/17/19 09:00 05/12/19 08:59 05/08/19 08:41 Lorazepam (Ativan 2mg/ml 1ml) 1 mg Q4H PRN IV for Restlessness 05/05/19 16:30 05/12/19 16:29 05/05/19 16:36 Micafungin Sodium 100 mg/Dextrose 110 ml @ 110 mls/hr Q24H IVPB 04/30/19 12:00 05/12/19 11:59 05/07/19 12:29 Morphine Sulfate (Morphine Sulfate) 4 mg Q4H PRN IVP Moderate Pain (Pain Scale 4-6) 05/07/19 15:30 05/14/19 15:29 05/07/19 22:09 Morphine Sulfate (Morphine Sulfate) 6 mg Q4H PRN IVP Severe Pain (Pain Scale 7-10) 05/03/19 02:15 05/10/19 02:14 05/08/19 06:25 Multivitamins (Multivitamins W/ Minerals 15ml Liquid) 15 ml DAILY GT 04/17/19 09:00 05/12/19 08:59 05/08/19 08:40 Ondansetron HCl (Zofran) 4 mg Q6H PRN GT Nausea & Vomiting 04/16/19 17:30 05/12/19 17:29 Phenytoin 300 mg/ Sodium Chloride 55 ml @ 110 mls/hr DAILY IV 04/17/19 09:00 05/17/19 08:59 05/08/19 08:54 Polyethylene Glycol (Miralax) 17 gm BEDTIME GT 05/01/19 21:00 05/31/19 20:59 05/07/19 20:35 Primidone (Mysoline) 100 mg QHS GT 04/16/19 21:00 05/12/19 20:59 05/07/19 20:36 Sodium Phosphate (Fleet's Sodium Phosl Enema) 133 ml BIDPRN PRN RECTAL Constipation 05/01/19 18:15 05/31/19 18:14 05/01/19 23:17 Verapamil HCl (Calan) 80 mg EVERY 8 HOURS GT 04/18/19 14:45 05/16/19 14:44 05/08/19 06:24 Rayshawn Soni MD May 08, 2019 11:51
[2019-05-08 12:00] VITALS: BP 132/97
--- NOTE | 2019-05-08 12:13 | Pulmonology Progress Note ---
Assessment/Plan Problems: (1) Fungemia (2) Sepsis (3) Nosocomial pneumonia (4) Chronic tachycardia (5) Epilepsy (6) Hereditary cerebellar ataxia (7) Cavitary lung disease (8) NP-Wyvstpe-Khryos disease (9) Feeding by G-tube Assessment/Plan GAGAN done still tachy at 120 Yeast in Blood cultures sputum has pseudomonas, pansensitive iv abx symptomatic treatment feeding by Gtube aspiration precaution Verapamil for chronic tachycardia, double the dose since, heart rate is low 100 monitor heart rate prbc prn Hem< 8 dvt prophylaxis. reviewed echo: normal EF Subjective ROS Limited/Unobtainable: Yes Constitutional: Reports: no symptoms HEENT: Repors: no symptoms Allergies: Coded Allergies: No Known Allergies (Unverified , 04/11/19) Objective Last 24 Hour Vital Signs Date Time Temp Pulse Resp B/P (MAP) Pulse Ox O2 Delivery O2 Flow Rate FiO2 05/08/19 09:00 Nasal Cannula 3.0 05/08/19 08:00 98.9 106 16 134/95 (108) 95 05/08/19 07:39 96 Nasal Cannula 3.0 32 05/08/19 06:24 105 133/100 05/08/19 04:34 97.8 105 18 133/100 (111) 98 05/07/19 23:54 97.9 107 18 139/99 (112) 98 05/07/19 23:35 97 Nasal Cannula 3.0 32 05/07/19 21:17 110 149/109 05/07/19 20:19 Nasal Cannula 3.0 05/07/19 20:00 97.7 110 20 149/109 (122) 99 05/07/19 16:00 97.6 104 20 146/107 (120) 96 05/07/19 14:03 97 110/91 (97) 05/07/19 14:00 97 110/91 Intake and Output 05/07/19 05/08/19 19:00 07:00 Intake Total 1060 ml 860 ml Output Total 900 ml 900 ml Balance 160 ml -40 ml Free Water 340 ml 200 ml Tube Feeding 720 ml 660 ml Output Urine Total 900 ml 900 ml # Voids 1 # Bowel Movements 1 Objective General Appearance: no acute distress HEENT: normocephalic, anicteric Respiratory/Chest: chest wall non-tender, rhonchi Cardiovascular: normal peripheral pulses, normal rate, regular rhythm Abdomen: normal bowel sounds, soft, non tender Genitourinary: normal external genitalia Extremities: no cyanosis Microbiology Date/Time Source Procedure Growth Status 05/06/19 03:45 Sputum Gram Stain - Final Resulted 05/06/19 03:45 Sputum Culture - Preliminary Gram Negative Bacillus 1 Usual Respiratory Lucia Resulted Current Medications Medications (Trade) Dose Ordered Sig/Kory Route PRN Reason Start Time Stop Time Status Last Admin Dose Admin Acetaminophen (Tylenol) 650 mg Q6H PRN GT Mild Pain/Temp > 100.5 04/16/19 17:30 05/11/19 17:29 04/30/19 01:08 Bisacodyl (Dulcolax) 10 mg DAILY ORAL 05/01/19 09:00 05/31/19 08:59 05/07/19 10:18 Dextrose (Dextrose 50%) 25 ml Q30M PRN IV Hypoglycemia 04/16/19 17:30 05/13/19 16:29 05/04/19 04:47 Dextrose (Dextrose 50%) 50 ml Q30M PRN IV Hypoglycemia 04/16/19 17:30 05/13/19 16:29 Docusate Sodium (Colace) 100 mg TWICE A DAY GT 05/01/19 18:00 05/31/19 17:59 05/08/19 08:41 Donepezil HCl (Aricept) 10 mg DAILY GT 04/17/19 09:00 05/12/19 08:59 05/08/19 08:41 Heparin Sodium (Porcine) (Heparin 5000 units/ml) 5,000 units EVERY 12 HOURS SUBQ 04/16/19 21:00 05/12/19 10:59 05/08/19 08:51 Insulin Aspart (NovoLOG) Q6HR SUBQ 04/16/19 18:00 05/13/19 17:59 05/08/19 06:26 Lactobacillus Acidophilus (Culturelle) 1 tab DAILY GT 04/17/19 09:00 05/12/19 08:59 05/08/19 08:41 Lactulose (Cephulac) 10 gm THREE TIMES A DAY GT 05/01/19 13:00 05/31/19 12:59 05/08/19 08:40 Lansoprazole (Prevacid) 30 mg DAILY GT 04/17/19 09:00 05/12/19 08:59 05/08/19 08:41 Lorazepam (Ativan 2mg/ml 1ml) 1 mg Q4H PRN IV for Restlessness 05/05/19 16:30 05/12/19 16:29 05/05/19 16:36 Micafungin Sodium 100 mg/Dextrose 110 ml @ 110 mls/hr Q24H IVPB 04/30/19 12:00 05/12/19 11:59 05/07/19 12:29 Morphine Sulfate (Morphine Sulfate) 4 mg Q4H PRN IVP Moderate Pain (Pain Scale 4-6) 05/07/19 15:30 05/14/19 15:29 05/07/19 22:09 Morphine Sulfate (Morphine Sulfate) 6 mg Q4H PRN IVP Severe Pain (Pain Scale 7-10) 05/03/19 02:15 05/10/19 02:14 05/08/19 06:25 Multivitamins (Multivitamins W/ Minerals 15ml Liquid) 15 ml DAILY GT 04/17/19 09:00 05/12/19 08:59 05/08/19 08:40 Ondansetron HCl (Zofran) 4 mg Q6H PRN GT Nausea & Vomiting 04/16/19 17:30 05/12/19 17:29 Phenytoin 300 mg/ Sodium Chloride 55 ml @ 110 mls/hr DAILY IV 04/17/19 09:00 05/17/19 08:59 05/08/19 08:54 Polyethylene Glycol (Miralax) 17 gm BEDTIME GT 05/01/19 21:00 05/31/19 20:59 05/07/19 20:35 Primidone (Mysoline) 100 mg QHS GT 04/16/19 21:00 05/12/19 20:59 05/07/19 20:36 Sodium Phosphate (Fleet's Sodium Phosl Enema) 133 ml BIDPRN PRN RECTAL Constipation 05/01/19 18:15 05/31/19 18:14 05/01/19 23:17 Verapamil HCl (Calan) 80 mg EVERY 8 HOURS GT 04/18/19 14:45 05/16/19 14:44 05/08/19 06:24 Carlos Sauer MD May 08, 2019 12:13
[2019-05-08] MEDS: Micafungin 100 MG in D5W 110 ML IVPB SCH (12:45)
[2019-05-08] MEDS: Albuterol/Ipratropium 3ml neb HHN PRN ×2 (12:50→17:49)
[2019-05-08 16:00] VITALS: BP 132/96
--- NOTE | 2019-05-08 16:55 | Cardiac Electrophysiology PN ---
Assessment/Plan Assessment/Plan 1. Sinus tachycardia. There is no clear documentation of atrial fib or supraventricular tachycardia. His echo showed ejection fraction of 65%. Continue verapamil 80 mg every 8 hours through G-tube. 2. Hypertension, stable on verapamil. 3. Fungemia. Awaiting stabilization for GAGAN by Dr. Abad 4. Dysphagia, status post PEG placement. 5. History of CVA. 6. Epilepsy. 7. Peptic ulcer disease. 8. Elevated liver function tests. SHIRLEY RN Subjective Subjective Awaiting respiratory improvement before GAGAN Objective Last 24 Hour Vital Signs Date Time Temp Pulse Resp B/P (MAP) Pulse Ox O2 Delivery O2 Flow Rate FiO2 05/08/19 16:00 98.8 103 18 132/96 (108) 97 05/08/19 13:21 110 132/97 05/08/19 12:00 97.4 110 21 132/97 (109) 98 05/08/19 09:00 Nasal Cannula 3.0 05/08/19 08:00 98.9 106 16 134/95 (108) 95 05/08/19 07:39 96 Nasal Cannula 3.0 32 05/08/19 06:24 105 133/100 05/08/19 04:34 97.8 105 18 133/100 (111) 98 05/07/19 23:54 97.9 107 18 139/99 (112) 98 05/07/19 23:35 97 Nasal Cannula 3.0 32 05/07/19 21:17 110 149/109 05/07/19 20:19 Nasal Cannula 3.0 05/07/19 20:00 97.7 110 20 149/109 (122) 99 Intake and Output 05/07/19 05/08/19 19:00 07:00 Intake Total 1060 ml 860 ml Output Total 900 ml 900 ml Balance 160 ml -40 ml Free Water 340 ml 200 ml Tube Feeding 720 ml 660 ml Output Urine Total 900 ml 900 ml # Voids 1 # Bowel Movements 1 Microbiology Date/Time Source Procedure Growth Status 05/06/19 03:45 Sputum Gram Stain - Final Resulted 05/06/19 03:45 Sputum Culture - Preliminary Gram Negative Bacillus 1 Usual Respiratory Lucia Resulted Objective HEAD AND NECK: Showed no JVD. LUNGS: Coarse rhonchi. CARDIOVASCULAR: Regular S1 and S2 with no gallop or murmur. ABDOMEN: Status post G-tube. EXTREMITIES: No pitting edema. Kyree Soto MD May 08, 2019 16:55
--- NOTE | 2019-05-08 18:40 | NUR ---
NURSE NOTES:WOUND CARE FOLLOW-UP NOTES:Pt cachetic. All bony prominences assessed with primary present. Pt has an area of hyperpigmentation sacrum with scar from previous pressure injury. Loose dry skin noted. Moisture Barrier Paste applied and covered with Optifoam drsg. Optifoam drsgs applied to both scapulae,elbows,Both hips, R and L ischium, Both heels as prevention to bony prominences. Pt has an APM /JIM Mattress overlay. Positioned on side with pillow and both heels floated off mattress.All wound prevention protocols continued as care-planned.
--- NOTE | 2019-05-08 19:37 | NUR ---
NURSE NOTES: Received patient in bed. Laying in high-fowlers position. Patient is non-verbal. No signs of pain at this time. NC in place running at 2 lpm, no respirator distress at this time. 1/2 side rails up, side rails padded. On P200 mattress. IV in left forearm noted with no swelling or redness, IV in right forearm noted with no redness or swelling. GT feeding patent and running at 60 mL/hr. ASpiration precautions noted. Contact isolation noted.
--- NOTE | 2019-05-08 19:37 | NUR ---
HAND-OFF: Report given to EDUAR Hu.
[2019-05-08 20:00] VITALS: BP 155/94
[2019-05-08] MEDS: Miralax 17gm pkt GT SCH (21:17)
[2019-05-09] VITALS: BP 131/93
[2019-05-09 04:00] VITALS: BP 128/91
[2019-05-09] MEDS: NovoLOG Insulin Flexpen SUBQ SCH ×5 (05:49→23:50)
[2019-05-09] MEDS: Verapamil 80mg tab GT SCH ×3 (05:58→22:16)
[2019-05-09 06:10] LABS: BASOPHILS % (AUTO) 1.3 % (0.0-2.0); EOSINOPHILS % (AUTO) 1.1 % (0.0-3.0); HEMATOCRIT 36.7 % (42.0-52.0); HEMOGLOBIN 12.9 G/DL (14.2-18.0); LYMPHOCYTES % (AUTO) 13.9 % (20.0-45.0); MEAN CORPUSCULAR VOLUME 87 FL (80-99); MONOCYTES % (AUTO) 5.5 % (1.0-10.0); NEUTROPHILS % (AUTO) 78.1 % (45.0-75.0); PLATELET COUNT 531 K/UL (150-450); RED BLOOD COUNT 4.19 M/UL (4.70-6.10); RED CELL DISTRIBUTION WIDTH 17.1 % (11.6-14.8); WHITE BLOOD COUNT 15.3 K/UL (4.8-10.8)
[2019-05-09 06:31] LABS: ALANINE AMINOTRANSFERASE 74 U/L (12-78); ALBUMIN 2.8 G/DL (3.4-5.0); ALBUMIN/GLOBULIN RATIO 0.4 (1.0-2.7); ALKALINE PHOSPHATASE 114 U/L (46-116); ANION GAP 6 mmol/L (5-15); ASPARTATE AMINO TRANSFERASE 38 U/L (15-37); BILIRUBIN,TOTAL 0.6 MG/DL (0.2-1.0); BLOOD UREA NITROGEN 14 mg/dL (7-18); CALCIUM 9.9 MG/DL (8.5-10.1); CARBON DIOXIDE 32 MMOL/L (21-32); CHLORIDE 106 MMOL/L (98-107); CREATININE 0.7 MG/DL (0.55-1.30); SODIUM 144 MMOL/L (136-145)
[2019-05-09 06:42] LABS: PHOSPHORUS 3.7 MG/DL (2.5-4.9)
--- NOTE | 2019-05-09 06:47 | General Progress Note ---
Assessment/Plan Status: unchanged Assessment/Plan: 1. History of CVA. 2. Dysphagia with G-tube. 3. Hypertension. 4. GERD. 5. Epilepsy. 6. Peptic ulcer disease. 7.constipation 8. Elevated LFTS 9. fungemia laxative abd us>>> reviewed>>> gallstones repeat labs repeat LFTS >> improving stable H&H hepatitis panel GTF GT care abx per ID cardiology note appreciated Subjective Allergies: Coded Allergies: No Known Allergies (Unverified , 04/11/19) Objective Last 24 Hour Vital Signs Date Time Temp Pulse Resp B/P (MAP) Pulse Ox O2 Delivery O2 Flow Rate FiO2 05/09/19 05:58 120 128/91 05/09/19 04:00 97.1 120 20 128/91 (103) 96 05/09/19 00:00 99.0 120 20 131/93 (106) 98 05/08/19 21:17 130 155/94 05/08/19 21:00 Nasal Cannula 3.0 05/08/19 20:00 98.0 130 20 155/94 (114) 94 05/08/19 19:10 97 Nasal Cannula 3.0 32 05/08/19 17:49 115 20 99 Nasal Cannula 2.0 28 112 20 99 05/08/19 16:00 98.8 103 18 132/96 (108) 97 05/08/19 13:21 110 132/97 05/08/19 12:00 97.4 110 21 132/97 (109) 98 05/08/19 09:00 Nasal Cannula 3.0 05/08/19 08:00 98.9 106 16 134/95 (108) 95 05/08/19 07:39 96 Nasal Cannula 3.0 32 Intake and Output 05/08/19 05/09/19 19:00 07:00 Intake Total 320 ml 860 ml Output Total 800 ml 2000 ml Balance -480 ml -1140 ml Free Water 200 ml 200 ml Tube Feeding 120 ml 660 ml Output Urine Total 800 ml 2000 ml # Bowel Movements 1 Laboratory Tests 05/09/19 04:55: White Blood Count 15.3H, Red Blood Count 4.19L, Hemoglobin 12.9L, Hematocrit 36.7L, Mean Corpuscular Volume 87, Mean Corpuscular Hemoglobin 30.7, Mean Corpuscular Hemoglobin Concent 35.1, Red Cell Distribution Width 17.1H, Platelet Count 531H, Mean Platelet Volume 5.2L, Neutrophils (%) (Auto) 78.1H, Lymphocytes (%) (Auto) 13.9L, Monocytes (%) (Auto) 5.5, Eosinophils (%) (Auto) 1.1, Basophils (%) (Auto) 1.3, Sodium Level 144, Potassium Level 4.0, Chloride Level 106, Carbon Dioxide Level 32, Anion Gap 6, Blood Urea Nitrogen 14, Creatinine 0.7, Estimat Glomerular Filtration Rate > 60, Glucose Level 111H, Calcium Level 9.9, Phosphorus Level 3.7, Magnesium Level 2.2, Total Bilirubin 0.6, Aspartate Amino Transf (AST/SGOT) 38H, Alanine Aminotransferase (ALT/SGPT) 74, Alkaline Phosphatase 114, Total Protein 9.3H, Albumin 2.8L, Globulin 6.5, Albumin/Globulin Ratio 0.4L, Hepatitis A IgM Antibody [Pending], Hepatitis B Surface Antigen [Pending], Hepatitis B Core IgM Antibody [Pending], Hepatitis C Antibody [Pending] Height (Feet): 5 Height (Inches): 5.00 Weight (Pounds): 124 General Appearance: alert EENT: normal ENT inspection Neck: supple Cardiovascular: normal rate Respiratory/Chest: decreased breath sounds Abdomen: normal bowel sounds, non tender, soft Extremities: non-tender Faizan Esqueda MD May 09, 2019 06:47
--- NOTE | 2019-05-09 07:05 | NUR ---
HAND-OFF: Report given to Chapin WITT.
--- NOTE | 2019-05-09 07:09 | NUR ---
NURSE NOTES: Handoff received from EDUAR Hu. Patient received sleeping in bed, no acute signs of distress noted. Patient has both IV sites clean dry and intact, saline locked and TKO at 5ml/hour. Patient is on the p200 mattress for prevention. Bed in the low and locked position with bed alarm on. call light within reach next to the patient. G tube feed is running Jevity 1.2 at prescribed rate. Will continue to monitor patient.
[2019-05-09 08:00] VITALS: BP 118/84
[2019-05-09] MEDS: Lactulose 10gm/15ml UDC GT SCH ×3 (08:43→17:58)
[2019-05-09] MEDS: Docusate 100mg/10ml Liq GT SCH ×2 (08:43→17:58)
[2019-05-09] MEDS: Multivitamins W/Minerals 15 ML UDC GT SCH (08:43)
[2019-05-09] MEDS: Lactobacillus-GG tablet GT SCH (08:44)
[2019-05-09] MEDS: Donepezil 10mg tab GT SCH (08:44)
[2019-05-09] MEDS: Heparin 5000 units/ml inj SUBQ SCH ×2 (08:45→20:22)
[2019-05-09] MEDS: NS IV SCH (08:46)
[2019-05-09] MEDS: PHENYTOIN IV SCH (08:46)
[2019-05-09] MEDS: Bisacodyl EC 5mg tab ORAL SCH (08:47)
[2019-05-09] MEDS: Morphine Sulfate 4mg/ml Inj (IV USE ONLY) IVP PRN ×3 (08:52→20:21)
--- NOTE | 2019-05-09 09:20 | General Progress Note ---
Assessment/Plan Assessment/Plan: (1) Sacral decubitus ulcer (2) Dementia (3) Encephalopathy (4) Sepsis (5) Cerebral Ataxia (6) Sickle cell disease Pt will be continued on Morphine D/w Dr. Palomino and he concurred. Subjective Date patient seen: May 09, 2019 Time patient seen: 08:45 - am ROS Limited/Unobtainable: Yes Allergies: Coded Allergies: No Known Allergies (Unverified , 04/11/19) Subjective Patient has been showing no signs of distress. Pain is stable Has gotten 2 Morphine 4mg in the last 24hrs. Objective Last 24 Hour Vital Signs Date Time Temp Pulse Resp B/P (MAP) Pulse Ox O2 Delivery O2 Flow Rate FiO2 05/09/19 09:00 Nasal Cannula 3.0 05/09/19 08:07 117 20 97 Nasal Cannula 3.0 32 05/09/19 08:07 97 Nasal Cannula 3.0 32 05/09/19 08:00 98.0 126 20 118/84 (95) 100 05/09/19 05:58 120 128/91 05/09/19 04:00 97.1 120 20 128/91 (103) 96 05/09/19 00:00 99.0 120 20 131/93 (106) 98 05/08/19 21:17 130 155/94 05/08/19 21:00 Nasal Cannula 3.0 05/08/19 20:00 98.0 130 20 155/94 (114) 94 05/08/19 19:10 97 Nasal Cannula 3.0 32 05/08/19 17:49 115 20 99 Nasal Cannula 2.0 28 112 20 99 05/08/19 16:00 98.8 103 18 132/96 (108) 97 05/08/19 13:21 110 132/97 05/08/19 12:00 97.4 110 21 132/97 (109) 98 Intake and Output 05/08/19 05/09/19 19:00 07:00 Intake Total 320 ml 860 ml Output Total 800 ml 2000 ml Balance -480 ml -1140 ml Free Water 200 ml 200 ml Tube Feeding 120 ml 660 ml Output Urine Total 800 ml 2000 ml # Bowel Movements 1 Laboratory Tests 05/09/19 04:55: White Blood Count 15.3H, Red Blood Count 4.19L, Hemoglobin 12.9L, Hematocrit 36.7L, Mean Corpuscular Volume 87, Mean Corpuscular Hemoglobin 30.7, Mean Corpuscular Hemoglobin Concent 35.1, Red Cell Distribution Width 17.1H, Platelet Count 531H, Mean Platelet Volume 5.2L, Neutrophils (%) (Auto) 78.1H, Lymphocytes (%) (Auto) 13.9L, Monocytes (%) (Auto) 5.5, Eosinophils (%) (Auto) 1.1, Basophils (%) (Auto) 1.3, Sodium Level 144, Potassium Level 4.0, Chloride Level 106, Carbon Dioxide Level 32, Anion Gap 6, Blood Urea Nitrogen 14, Creatinine 0.7, Estimat Glomerular Filtration Rate > 60, Glucose Level 111H, Calcium Level 9.9, Phosphorus Level 3.7, Magnesium Level 2.2, Total Bilirubin 0.6, Aspartate Amino Transf (AST/SGOT) 38H, Alanine Aminotransferase (ALT/SGPT) 74, Alkaline Phosphatase 114, Total Protein 9.3H, Albumin 2.8L, Globulin 6.5, Albumin/Globulin Ratio 0.4L, Hepatitis A IgM Antibody [Pending], Hepatitis B Surface Antigen [Pending], Hepatitis B Core IgM Antibody [Pending], Hepatitis C Antibody [Pending] Height (Feet): 5 Height (Inches): 5.00 Weight (Pounds): 124 Objective General Appearance: no apparent distress EENT: normal ENT inspection Neck: non-tender Cardiovascular: normal rate Respiratory/Chest: decreased breath sounds Abdomen: other - Gtube noted Extremities: swelling Edema: trace edema Neurologic: responsive Skin: warm/dry Henrry Allison May 09, 2019 09:20
--- NOTE | 2019-05-09 10:29 | NUR ---
RD ASSESSMENT & RECOMMENDATIONS SEE CARE ACTIVITY FOR COMPLETE ASSESSMENT DAILY ESTIMATED NEEDS: Needs based on Severely underweight/ 45kg 35-40 kcals/kg 5592-9038 total kcals 1.5-2.0 g protein/kg 67-90 g total protein 25-35 mL/kg 6747-5063 total fluid mLs NUTRITION DIAGNOSIS: * Increased kcal/prot needs R/T severely underweight status and wt loss as evidenced by pt ~67% IBW, BMI of 15.5, w/ severe generalized wasting, possible significant wt loss of 50lbs/33% in <8 months as per report. 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 ENTERAL NUTRITION RECOMMENDATIONS: Jevity 1.2 @ 60ml/hr x 24 hrs to provide 1440ml, 1728kcal, 80g prot, 1162ml free water * Maintain current TF @goal rate of 60ml/hr x 24 hrs as tolerated * HOB over 30 degrees * Without IVF, water flush of 100ml q 6 hrs ADDITIONAL RECOMMENDATIONS: * Calibrated bedscale wt for accurate CBW -> weekly wt monitoring given h/o wt loss, severely underweight * Monitor lytes daily, replete as needed-> lytes wnl * REC BOWEL REGIMEN-> now on colace, lactulose, ducolax * Skin integrity: Add UMER in 4oz H2O BID via GT prophy * Rec to DC Novolog SSI to prevent hypoglycemia. -> continue w/ accucheck for close BG monitoring
--- NOTE | 2019-05-09 11:15 | Pulmonology Progress Note ---
Assessment/Plan Problems: (1) Fungemia (2) Sepsis (3) Nosocomial pneumonia (4) Chronic tachycardia (5) Epilepsy (6) Hereditary cerebellar ataxia (7) Cavitary lung disease (8) DY-Gtuxhlk-Fcgzey disease (9) Feeding by G-tube Assessment/Plan GAGAN done still tachy at 120 Yeast in Blood cultures, last cultures are negative sputum has pseudomonas, pansensitive iv abx symptomatic treatment feeding by Gtube aspiration precaution Verapamil for chronic tachycardia, double the dose since, heart rate is low 100 monitor heart rate prbc prn Hem< 8 dvt prophylaxis. reviewed echo: normal EF Subjective ROS Limited/Unobtainable: Yes Constitutional: Reports: no symptoms HEENT: Repors: no symptoms Allergies: Coded Allergies: No Known Allergies (Unverified , 04/11/19) Objective Last 24 Hour Vital Signs Date Time Temp Pulse Resp B/P (MAP) Pulse Ox O2 Delivery O2 Flow Rate FiO2 05/09/19 09:00 Nasal Cannula 3.0 05/09/19 08:07 117 20 97 Nasal Cannula 3.0 32 05/09/19 08:07 97 Nasal Cannula 3.0 32 05/09/19 08:00 98.0 126 20 118/84 (95) 100 05/09/19 05:58 120 128/91 05/09/19 04:00 97.1 120 20 128/91 (103) 96 05/09/19 00:00 99.0 120 20 131/93 (106) 98 05/08/19 21:17 130 155/94 05/08/19 21:00 Nasal Cannula 3.0 05/08/19 20:00 98.0 130 20 155/94 (114) 94 05/08/19 19:10 97 Nasal Cannula 3.0 32 05/08/19 17:49 115 20 99 Nasal Cannula 2.0 28 112 20 99 05/08/19 16:00 98.8 103 18 132/96 (108) 97 05/08/19 13:21 110 132/97 05/08/19 12:00 97.4 110 21 132/97 (109) 98 Intake and Output 05/08/19 05/09/19 19:00 07:00 Intake Total 320 ml 860 ml Output Total 800 ml 2000 ml Balance -480 ml -1140 ml Free Water 200 ml 200 ml Tube Feeding 120 ml 660 ml Output Urine Total 800 ml 2000 ml # Bowel Movements 1 Objective General Appearance: no acute distress HEENT: normocephalic, anicteric Respiratory/Chest: chest wall non-tender, rhonchi Cardiovascular: normal peripheral pulses, normal rate, regular rhythm Abdomen: normal bowel sounds, soft, non tender Genitourinary: normal external genitalia Extremities: no cyanosis Laboratory Tests 05/09/19 04:55: White Blood Count 15.3H, Red Blood Count 4.19L, Hemoglobin 12.9L, Hematocrit 36.7L, Mean Corpuscular Volume 87, Mean Corpuscular Hemoglobin 30.7, Mean Corpuscular Hemoglobin Concent 35.1, Red Cell Distribution Width 17.1H, Platelet Count 531H, Mean Platelet Volume 5.2L, Neutrophils (%) (Auto) 78.1H, Lymphocytes (%) (Auto) 13.9L, Monocytes (%) (Auto) 5.5, Eosinophils (%) (Auto) 1.1, Basophils (%) (Auto) 1.3, Sodium Level 144, Potassium Level 4.0, Chloride Level 106, Carbon Dioxide Level 32, Anion Gap 6, Blood Urea Nitrogen 14, Creatinine 0.7, Estimat Glomerular Filtration Rate > 60, Glucose Level 111H, Calcium Level 9.9, Phosphorus Level 3.7, Magnesium Level 2.2, Total Bilirubin 0.6, Aspartate Amino Transf (AST/SGOT) 38H, Alanine Aminotransferase (ALT/SGPT) 74, Alkaline Phosphatase 114, Total Protein 9.3H, Albumin 2.8L, Globulin 6.5, Albumin/Globulin Ratio 0.4L, Hepatitis A IgM Antibody [Pending], Hepatitis B Surface Antigen [Pending], Hepatitis B Core IgM Antibody [Pending], Hepatitis C Antibody [Pending] Current Medications Medications (Trade) Dose Ordered Sig/Kory Route PRN Reason Start Time Stop Time Status Last Admin Dose Admin Acetaminophen (Tylenol) 650 mg Q6H PRN GT Mild Pain/Temp > 100.5 04/16/19 17:30 05/11/19 17:29 04/30/19 01:08 Albuterol/ Ipratropium (Albuterol/ Ipratropium) 3 ml Q4H PRN HHN Shortness of Breath 05/08/19 12:45 05/13/19 12:44 05/08/19 17:49 Bisacodyl (Dulcolax) 10 mg DAILY ORAL 05/01/19 09:00 05/31/19 08:59 05/07/19 10:18 Dextrose (Dextrose 50%) 25 ml Q30M PRN IV Hypoglycemia 04/16/19 17:30 05/13/19 16:29 05/04/19 04:47 Dextrose (Dextrose 50%) 50 ml Q30M PRN IV Hypoglycemia 04/16/19 17:30 05/13/19 16:29 Docusate Sodium (Colace) 100 mg TWICE A DAY GT 05/01/19 18:00 05/31/19 17:59 05/09/19 08:43 Donepezil HCl (Aricept) 10 mg DAILY GT 04/17/19 09:00 05/12/19 08:59 05/09/19 08:44 Heparin Sodium (Porcine) (Heparin 5000 units/ml) 5,000 units EVERY 12 HOURS SUBQ 04/16/19 21:00 05/12/19 10:59 05/09/19 08:45 Insulin Aspart (NovoLOG) Q6HR SUBQ 04/16/19 18:00 05/13/19 17:59 05/08/19 18:15 Lactobacillus Acidophilus (Culturelle) 1 tab DAILY GT 04/17/19 09:00 05/12/19 08:59 05/09/19 08:44 Lactulose (Cephulac) 10 gm THREE TIMES A DAY GT 05/01/19 13:00 05/31/19 12:59 05/09/19 08:43 Lansoprazole (Prevacid) 30 mg DAILY GT 04/17/19 09:00 05/12/19 08:59 05/09/19 08:43 Lorazepam (Ativan 2mg/ml 1ml) 1 mg Q4H PRN IV for Restlessness 05/05/19 16:30 05/12/19 16:29 05/05/19 16:36 Micafungin Sodium 100 mg/Dextrose 110 ml @ 110 mls/hr Q24H IVPB 04/30/19 12:00 05/12/19 11:59 05/08/19 12:45 Morphine Sulfate (Morphine Sulfate) 4 mg Q4H PRN IVP Moderate Pain (Pain Scale 4-6) 05/07/19 15:30 05/14/19 15:29 05/09/19 08:52 Morphine Sulfate (Morphine Sulfate) 6 mg Q4H PRN IVP Severe Pain (Pain Scale 7-10) 05/03/19 02:15 05/10/19 02:14 05/08/19 06:25 Multivitamins (Multivitamins W/ Minerals 15ml Liquid) 15 ml DAILY GT 04/17/19 09:00 05/12/19 08:59 05/09/19 08:43 Ondansetron HCl (Zofran) 4 mg Q6H PRN GT Nausea & Vomiting 04/16/19 17:30 05/12/19 17:29 Phenytoin 300 mg/ Sodium Chloride 55 ml @ 110 mls/hr DAILY IV 04/17/19 09:00 05/17/19 08:59 05/09/19 08:46 Polyethylene Glycol (Miralax) 17 gm BEDTIME GT 05/01/19 21:00 05/31/19 20:59 05/08/19 21:17 Primidone (Mysoline) 100 mg QHS GT 04/16/19 21:00 05/12/19 20:59 05/08/19 21:16 Sodium Phosphate (Fleet's Sodium Phosl Enema) 133 ml BIDPRN PRN RECTAL Constipation 05/01/19 18:15 05/31/19 18:14 05/01/19 23:17 Verapamil HCl (Calan) 80 mg EVERY 8 HOURS GT 04/18/19 14:45 05/16/19 14:44 05/09/19 05:58 Carlos Sauer MD May 09, 2019 11:14
--- NOTE | 2019-05-09 11:40 | Infectious Diseases Prog Note ---
Assessment/Plan Assessment/Plan Assessment: Sepsis Fungemia- r/o endocardiis Blood Cx 04/22/19 - C. alb Blood Cx 04/25/19 2/2 C. albicns Bcx 04/28 p TTE 04/12/19 - No Vegitations PNA - 05/06/19 Sp Cx P.a. - 04/22/19 Sp Cx P.a. and acenetobacter -04/16 CXR: Left greater than right bibasilar opacities may represent atelectasis versus pneumonia. Findings are decreased compared to prior exam. -CXR: Left basilar atelectasis and possible consolidation -sp cx PsA (ramirez S) -influenza sc neg -u/a neg Fever; SP Leukocytosis; decreasing Gram positive bacteremia- contaminant -04/11 Bcx 05/06 CONS; 04/12 Bcx NTD HTN dysphagia s/p GT cerebellar ataxia seizure disorder Alzheimer's dementia SNF resident Plan: - Need to improve respiratory status in order to have GAGAN done - Will repeat CXR and Sputum Cx - Get GAGAN to r/o Endocarditis - Continue Micafungin #14 - 05/07/19 SP Zosyn #12 and Bactrim # 12 - 04/24 SP Meropenem #3 and Vancomycin #3 - 04/22/19 SP Zosyn #3 -04/19 SP Cefepime #9 for PsA PNA -04/18 SP Azithromycin #7/ -04/16 SP IV Vancomycin #6 -04/11 SP Ceftriaxone x1 -Monitor CBC/CMP, temperatures -GT care -aspiration precautions -CBC, CMP am -Cdiff if diarrhea Thank you for consulting [facility]. Will continue to follow along with you. Subjective Allergies: Coded Allergies: No Known Allergies (Unverified , 04/11/19) Subjective Afebrile WBCs up to 15 Pt still on NC 3L Objective Vital Signs Last 24 Hour Vital Signs Date Time Temp Pulse Resp B/P (MAP) Pulse Ox O2 Delivery O2 Flow Rate FiO2 05/09/19 09:00 Nasal Cannula 3.0 05/09/19 08:07 117 20 97 Nasal Cannula 3.0 32 05/09/19 08:07 97 Nasal Cannula 3.0 32 05/09/19 08:00 98.0 126 20 118/84 (95) 100 05/09/19 05:58 120 128/91 05/09/19 04:00 97.1 120 20 128/91 (103) 96 05/09/19 00:00 99.0 120 20 131/93 (106) 98 05/08/19 21:17 130 155/94 05/08/19 21:00 Nasal Cannula 3.0 05/08/19 20:00 98.0 130 20 155/94 (114) 94 05/08/19 19:10 97 Nasal Cannula 3.0 32 05/08/19 17:49 115 20 99 Nasal Cannula 2.0 28 112 20 99 05/08/19 16:00 98.8 103 18 132/96 (108) 97 05/08/19 13:21 110 132/97 05/08/19 12:00 97.4 110 21 132/97 (109) 98 Height (Feet): 5 Height (Inches): 5.00 Weight (Pounds): 124 Objective GENERAL: NAD on 3L NC HEENT: NCAT, MMM, EOMI CARDIOVASCULAR: RRR, S1,S2 LUNGS: Coarse B/L, No W ABDOMEN: Bowel sounds distant. Laboratory Tests Test 05/09/19 04:55 White Blood Count 15.3 K/UL (4.8-10.8) H Red Blood Count 4.19 M/UL (4.70-6.10) L Hemoglobin 12.9 G/DL (14.2-18.0) L Hematocrit 36.7 % (42.0-52.0) L Mean Corpuscular Volume 87 FL (80-99) Mean Corpuscular Hemoglobin 30.7 PG (27.0-31.0) Mean Corpuscular Hemoglobin Concent 35.1 G/DL (32.0-36.0) Red Cell Distribution Width 17.1 % (11.6-14.8) H Platelet Count 531 K/UL (150-450) H Mean Platelet Volume 5.2 FL (6.5-10.1) L Neutrophils (%) (Auto) 78.1 % (45.0-75.0) H Lymphocytes (%) (Auto) 13.9 % (20.0-45.0) L Monocytes (%) (Auto) 5.5 % (1.0-10.0) Eosinophils (%) (Auto) 1.1 % (0.0-3.0) Basophils (%) (Auto) 1.3 % (0.0-2.0) Sodium Level 144 MMOL/L (136-145) Potassium Level 4.0 MMOL/L (3.5-5.1) Chloride Level 106 MMOL/L (98-107) Carbon Dioxide Level 32 MMOL/L (21-32) Anion Gap 6 mmol/L (5-15) Blood Urea Nitrogen 14 mg/dL (7-18) Creatinine 0.7 MG/DL (0.55-1.30) Estimat Glomerular Filtration Rate > 60 mL/min (>60) Glucose Level 111 MG/DL (74-106) H Calcium Level 9.9 MG/DL (8.5-10.1) Phosphorus Level 3.7 MG/DL (2.5-4.9) Magnesium Level 2.2 MG/DL (1.8-2.4) Total Bilirubin 0.6 MG/DL (0.2-1.0) Aspartate Amino Transf (AST/SGOT) 38 U/L (15-37) H Alanine Aminotransferase (ALT/SGPT) 74 U/L (12-78) Alkaline Phosphatase 114 U/L (46-116) Total Protein 9.3 G/DL (6.4-8.2) H Albumin 2.8 G/DL (3.4-5.0) L Globulin 6.5 g/dL Albumin/Globulin Ratio 0.4 (1.0-2.7) L Hepatitis A IgM Antibody Pending Hepatitis B Surface Antigen Pending Hepatitis B Core IgM Antibody Pending Hepatitis C Antibody Pending Current Medications Medications (Trade) Dose Ordered Sig/Kory Route PRN Reason Start Time Stop Time Status Last Admin Dose Admin Acetaminophen (Tylenol) 650 mg Q6H PRN GT Mild Pain/Temp > 100.5 04/16/19 17:30 05/11/19 17:29 04/30/19 01:08 Albuterol/ Ipratropium (Albuterol/ Ipratropium) 3 ml Q4H PRN HHN Shortness of Breath 05/08/19 12:45 05/13/19 12:44 05/08/19 17:49 Dextrose (Dextrose 50%) 25 ml Q30M PRN IV Hypoglycemia 04/16/19 17:30 05/13/19 16:29 05/04/19 04:47 Dextrose (Dextrose 50%) 50 ml Q30M PRN IV Hypoglycemia 04/16/19 17:30 05/13/19 16:29 Docusate Sodium (Colace) 100 mg TWICE A DAY GT 05/01/19 18:00 05/31/19 17:59 05/09/19 08:43 Donepezil HCl (Aricept) 10 mg DAILY GT 04/17/19 09:00 05/12/19 08:59 05/09/19 08:44 Heparin Sodium (Porcine) (Heparin 5000 units/ml) 5,000 units EVERY 12 HOURS SUBQ 04/16/19 21:00 05/12/19 10:59 05/09/19 08:45 Insulin Aspart (NovoLOG) Q6HR SUBQ 04/16/19 18:00 05/13/19 17:59 05/08/19 18:15 Lactobacillus Acidophilus (Culturelle) 1 tab DAILY GT 04/17/19 09:00 05/12/19 08:59 05/09/19 08:44 Lactulose (Cephulac) 10 gm THREE TIMES A DAY GT 05/01/19 13:00 05/31/19 12:59 05/09/19 08:43 Lansoprazole (Prevacid) 30 mg DAILY GT 04/17/19 09:00 05/12/19 08:59 05/09/19 08:43 Lorazepam (Ativan 2mg/ml 1ml) 1 mg Q4H PRN IV for Restlessness 05/05/19 16:30 05/12/19 16:29 05/05/19 16:36 Micafungin Sodium 100 mg/Dextrose 110 ml @ 110 mls/hr Q24H IVPB 04/30/19 12:00 05/12/19 11:59 05/08/19 12:45 Morphine Sulfate (Morphine Sulfate) 4 mg Q4H PRN IVP Moderate Pain (Pain Scale 4-6) 05/07/19 15:30 05/14/19 15:29 05/09/19 08:52 Morphine Sulfate (Morphine Sulfate) 6 mg Q4H PRN IVP Severe Pain (Pain Scale 7-10) 05/03/19 02:15 05/10/19 02:14 05/08/19 06:25 Multivitamins (Multivitamins W/ Minerals 15ml Liquid) 15 ml DAILY GT 04/17/19 09:00 05/12/19 08:59 05/09/19 08:43 Ondansetron HCl (Zofran) 4 mg Q6H PRN GT Nausea & Vomiting 04/16/19 17:30 05/12/19 17:29 Phenytoin 300 mg/ Sodium Chloride 55 ml @ 110 mls/hr DAILY IV 04/17/19 09:00 05/17/19 08:59 05/09/19 08:46 Polyethylene Glycol (Miralax) 17 gm BEDTIME GT 05/01/19 21:00 05/31/19 20:59 05/08/19 21:17 Primidone (Mysoline) 100 mg QHS GT 04/16/19 21:00 05/12/19 20:59 05/08/19 21:16 Sodium Phosphate (Fleet's Sodium Phosl Enema) 133 ml BIDPRN PRN RECTAL Constipation 05/01/19 18:15 05/31/19 18:14 05/01/19 23:17 Verapamil HCl (Calan) 80 mg EVERY 8 HOURS GT 04/18/19 14:45 05/16/19 14:44 05/09/19 05:58 Rayshawn Soni MD May 09, 2019 11:40
--- NOTE | 2019-05-09 11:57 | NUR ---
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 PNA. T 97.1 HR 120 RR 20 B/P 128/91 SATS 96% ON 3L/NC LABS: WBC 15.3 GLU 111 AST 38 HEP PANEL PENDING IS: CALAN GT Q8H PHENYTOIN IV QD MICAFUNGIN IV Q24H PRIMIDONE GT QHS LACTULOSE GT TID MED/SURG STATUS PLAN OF CARE: CXR Need to improve respiratory status in order to have GAGAN done - Will repeat CXR and Sputum Cx
[2019-05-09 12:00] VITALS: BP 129/98
[2019-05-09] MEDS: Micafungin 100 MG in D5W 110 ML IVPB SCH (12:19)
--- NOTE | 2019-05-09 14:22 | General Progress Note ---
Assessment/Plan Problem List: (1) Pneumonia ICD Codes: J18.9 - Pneumonia, unspecified organism SNOMED: 492972166 (2) Sickle cell anemia ICD Codes: D57.1 - Sickle-cell disease without crisis SNOMED: 045208301 (3) Sepsis ICD Codes: A41.9 - Sepsis, unspecified organism SNOMED: 61779356 Status: stable, progressing Assessment/Plan: pt diet abx psyc neuro eval cbc bmp am Subjective Constitutional: Reports: weakness Allergies: Coded Allergies: No Known Allergies (Unverified , 04/11/19) All Systems: reviewed and negative except above Subjective o2nc sleepy calm Objective Last 24 Hour Vital Signs Date Time Temp Pulse Resp B/P (MAP) Pulse Ox O2 Delivery O2 Flow Rate FiO2 05/09/19 12:00 98.2 123 20 129/98 (108) 95 05/09/19 11:42 Nasal Cannula 3.0 05/09/19 09:00 Nasal Cannula 3.0 05/09/19 08:07 117 20 97 Nasal Cannula 3.0 32 05/09/19 08:07 97 Nasal Cannula 3.0 32 05/09/19 08:00 98.0 126 20 118/84 (95) 100 05/09/19 05:58 120 128/91 05/09/19 04:00 97.1 120 20 128/91 (103) 96 05/09/19 00:00 99.0 120 20 131/93 (106) 98 05/08/19 21:17 130 155/94 05/08/19 21:00 Nasal Cannula 3.0 05/08/19 20:00 98.0 130 20 155/94 (114) 94 05/08/19 19:10 97 Nasal Cannula 3.0 32 05/08/19 17:49 115 20 99 Nasal Cannula 2.0 28 112 20 99 05/08/19 16:00 98.8 103 18 132/96 (108) 97 Intake and Output 05/08/19 05/09/19 19:00 07:00 Intake Total 320 ml 860 ml Output Total 800 ml 2000 ml Balance -480 ml -1140 ml Free Water 200 ml 200 ml Tube Feeding 120 ml 660 ml Output Urine Total 800 ml 2000 ml # Bowel Movements 1 Laboratory Tests 05/09/19 04:55: White Blood Count 15.3H, Red Blood Count 4.19L, Hemoglobin 12.9L, Hematocrit 36.7L, Mean Corpuscular Volume 87, Mean Corpuscular Hemoglobin 30.7, Mean Corpuscular Hemoglobin Concent 35.1, Red Cell Distribution Width 17.1H, Platelet Count 531H, Mean Platelet Volume 5.2L, Neutrophils (%) (Auto) 78.1H, Lymphocytes (%) (Auto) 13.9L, Monocytes (%) (Auto) 5.5, Eosinophils (%) (Auto) 1.1, Basophils (%) (Auto) 1.3, Sodium Level 144, Potassium Level 4.0, Chloride Level 106, Carbon Dioxide Level 32, Anion Gap 6, Blood Urea Nitrogen 14, Creatinine 0.7, Estimat Glomerular Filtration Rate > 60, Glucose Level 111H, Calcium Level 9.9, Phosphorus Level 3.7, Magnesium Level 2.2, Total Bilirubin 0.6, Aspartate Amino Transf (AST/SGOT) 38H, Alanine Aminotransferase (ALT/SGPT) 74, Alkaline Phosphatase 114, Total Protein 9.3H, Albumin 2.8L, Globulin 6.5, Albumin/Globulin Ratio 0.4L, Hepatitis A IgM Antibody [Pending], Hepatitis B Surface Antigen [Pending], Hepatitis B Core IgM Antibody [Pending], Hepatitis C Antibody [Pending] Height (Feet): 5 Height (Inches): 5.00 Weight (Pounds): 124 General Appearance: lethargic EENT: normal ENT inspection Neck: normal alignment Cardiovascular: normal peripheral pulses, normal rate, regular rhythm Respiratory/Chest: chest wall non-tender, lungs clear, normal breath sounds Abdomen: normal bowel sounds, non tender, soft Extremities: normal inspection Edema: no edema noted Arm (L), no edema noted Arm (R), no edema noted Leg (L), no edema noted Leg (R), no edema noted Pedal (L), no edema noted Pedal (R), no edema noted Generalized Neurologic: motor weakness Skin: normal pigmentation, warm/dry Marito Ortega DO May 09, 2019 14:22
[2019-05-09 16:00] VITALS: BP 143/96
--- NOTE | 2019-05-09 19:25 | NUR ---
HAND-OFF: Report given to EDUAR Hill.
--- NOTE | 2019-05-09 19:27 | NUR ---
NURSE NOTES: Received pt from EDUAR Samson. AAO x 0, non-verbal, on NC 3L. IV sites intact and patent. Side rails padding for SZ precaution. Pt has GT feeding Jevity 1.2 @ 60cc. HOB elevated. Garcia intact and draining urine well. No acute distress noted. Suction set up at bedside. Bed locked, lowest position, alarm on, side rails up, call light within reach. Will continue to monitor.
--- NOTE | 2019-05-09 19:29 | NUR ---
HAND-OFF: Report given to EDUAR Cartagena.
[2019-05-09 20:00] VITALS: BP 133/98
[2019-05-09] MEDS ORDERED: Sterile Water Irrig 1000ml IRRIG ONE (20:12)
[2019-05-09] MEDS ORDERED: NS 275ml ONE (20:12)
[2019-05-09] MEDS: Miralax 17gm pkt GT SCH (20:20)
[2019-05-10] VITALS: BP 128/97
[2019-05-10] MEDS: Morphine Sulfate 4mg/ml Inj (IV USE ONLY) IVP PRN (02:11)
[2019-05-10 04:00] VITALS: BP 123/84
[2019-05-10] MEDS: Verapamil 80mg tab GT SCH ×3 (05:55→21:07)
[2019-05-10] MEDS: NovoLOG Insulin Flexpen SUBQ SCH ×3 (05:56→18:23)
[2019-05-10 06:36] LABS: BASOPHILS % (AUTO) 1.6 % (0.0-2.0); EOSINOPHILS % (AUTO) 1.7 % (0.0-3.0); HEMATOCRIT 37.9 % (42.0-52.0); HEMOGLOBIN 13.2 G/DL (14.2-18.0); LYMPHOCYTES % (AUTO) 20.7 % (20.0-45.0); MEAN CORPUSCULAR VOLUME 89 FL (80-99); MONOCYTES % (AUTO) 6.9 % (1.0-10.0); NEUTROPHILS % (AUTO) 69.2 % (45.0-75.0); PLATELET COUNT 483 K/UL (150-450); RED BLOOD COUNT 4.27 M/UL (4.70-6.10); RED CELL DISTRIBUTION WIDTH 17.2 % (11.6-14.8); WHITE BLOOD COUNT 12.3 K/UL (4.8-10.8)
--- NOTE | 2019-05-10 06:45 | Progress Note ---
DATE: 05/10/2019 SUBJECTIVE: male patient with sepsis, a 43-year-old male decline in cognition below his baseline. That is why his attending physician has requested daily psychiatric consultation. MENTAL STATUS EXAMINATION: This is a 43-year-old male. Appearance is disheveled. Attitude, irritable and agitated. Affect, guarded and restricted. Intellect poor. Mood, depressed and anxious. Insight and judgment are poor. DIAGNOSIS: Major depressive disorder, severe, recurrent with psychotic features. PLAN: I will continue treatment with psychotropic medications to stabilize his mood. Twenty minutes of behavioral management provided. Chart was reviewed and discussed with staff. Seen and assessed at bedside. Osbaldo Bird M.D. DR: Chicho JOB#: [id number] CC:
[2019-05-10 06:58] LABS: ALANINE AMINOTRANSFERASE 78 U/L (12-78); ALBUMIN 2.8 G/DL (3.4-5.0); ALBUMIN/GLOBULIN RATIO 0.4 (1.0-2.7); ALKALINE PHOSPHATASE 112 U/L (46-116); ANION GAP 6 mmol/L (5-15); ASPARTATE AMINO TRANSFERASE 41 U/L (15-37); BILIRUBIN,TOTAL 0.6 MG/DL (0.2-1.0); BLOOD UREA NITROGEN 17 mg/dL (7-18); CALCIUM 10.3 MG/DL (8.5-10.1); CARBON DIOXIDE 33 MMOL/L (21-32); CHLORIDE 110 MMOL/L (98-107); CREATININE 0.7 MG/DL (0.55-1.30); POTASSIUM 4.1 MMOL/L (3.5-5.1); SODIUM 149 MMOL/L (136-145)
--- NOTE | 2019-05-10 07:18 | NUR ---
HAND-OFF: Report given to EDUAR Benavides.
--- NOTE | 2019-05-10 07:25 | NUR ---
NURSE NOTES: received report from EDUAR Hill. patient in bed. sleeping. no respiratory distress with o2 3L via NC. no facial grimacing. IV on LFA22 saline intact. F/C draining. GTF with [employer].[email or web address] running @60. HOB at all times. contact isolation. PPE at all times. bed in the lowest position and locked. call light within reach. alarm on. will continue to provide plan of care.
[2019-05-10 08:00] VITALS: BP 118/84
[2019-05-10] MEDS: Donepezil 10mg tab GT SCH (08:20)
[2019-05-10] MEDS: Micafungin 100 MG in D5W 110 ML IVPB SCH (08:20)
[2019-05-10] MEDS: Lactulose 10gm/15ml UDC GT SCH ×3 (08:20→18:19)
[2019-05-10] MEDS: Multivitamins W/Minerals 15 ML UDC GT SCH (08:20)
[2019-05-10] MEDS: Lactobacillus-GG tablet GT SCH (08:20)
[2019-05-10] MEDS: Docusate 100mg/10ml Liq GT SCH ×2 (08:20→18:19)
[2019-05-10] MEDS: Heparin 5000 units/ml inj SUBQ SCH ×2 (08:21→21:09)
--- NOTE | 2019-05-10 08:27 | General Progress Note ---
Assessment/Plan Problem List: (1) Pneumonia ICD Codes: J18.9 - Pneumonia, unspecified organism SNOMED: 532751523 (2) Sickle cell anemia ICD Codes: D57.1 - Sickle-cell disease without crisis SNOMED: 837215893 (3) Sepsis ICD Codes: A41.9 - Sepsis, unspecified organism SNOMED: 83901345 Status: stable, progressing Assessment/Plan: pt diet abx psyc neuro eval cbc bmp am Subjective Constitutional: Reports: weakness Allergies: Coded Allergies: No Known Allergies (Unverified , 04/11/19) All Systems: reviewed and negative except above Subjective o2nc sleepy calm Objective Last 24 Hour Vital Signs Date Time Temp Pulse Resp B/P (MAP) Pulse Ox O2 Delivery O2 Flow Rate FiO2 05/10/19 07:25 97 Nasal Cannula 3.0 32 05/10/19 07:25 101 18 96 Nasal Cannula 3.0 32 05/10/19 05:55 134 123/84 05/10/19 04:00 97.7 134 18 123/84 (97) 98 05/10/19 00:00 97.7 120 14 128/97 (107) 100 05/09/19 22:16 130 133/98 05/09/19 20:00 96.6 130 14 133/98 (110) 98 05/09/19 20:00 122 20 96 Nasal Cannula 3.0 32 05/09/19 20:00 96 Nasal Cannula 3.0 32 05/09/19 19:55 Nasal Cannula 3.0 05/09/19 16:00 98.6 123 19 143/96 (112) 99 05/09/19 14:41 123 129/98 05/09/19 12:00 98.2 123 20 129/98 (108) 95 05/09/19 11:42 Nasal Cannula 3.0 05/09/19 09:00 Nasal Cannula 3.0 Intake and Output 05/09/19 05/10/19 19:00 07:00 Intake Total 380 ml 1020 ml Output Total 450 ml 800 ml Balance -70 ml 220 ml Free Water 260 ml 300 ml Tube Feeding 120 ml 720 ml Output Urine Total 450 ml 800 ml # Bowel Movements 1 Laboratory Tests 05/10/19 04:16: White Blood Count 12.3H, Red Blood Count 4.27L, Hemoglobin 13.2L, Hematocrit 37.9L, Mean Corpuscular Volume 89, Mean Corpuscular Hemoglobin 31.0, Mean Corpuscular Hemoglobin Concent 34.8, Red Cell Distribution Width 17.2H, Platelet Count 483H, Mean Platelet Volume 5.4L, Neutrophils (%) (Auto) 69.2, Lymphocytes (%) (Auto) 20.7, Monocytes (%) (Auto) 6.9, Eosinophils (%) (Auto) 1.7, Basophils (%) (Auto) 1.6, Sodium Level 149H, Potassium Level 4.1, Chloride Level 110H, Carbon Dioxide Level 33H, Anion Gap 6, Blood Urea Nitrogen 17, Creatinine 0.7, Estimat Glomerular Filtration Rate > 60, Glucose Level 115H, Calcium Level 10.3H, Total Bilirubin 0.6, Aspartate Amino Transf (AST/SGOT) 41H , Alanine Aminotransferase (ALT/SGPT) 78, Alkaline Phosphatase 112, Pro-B-Type Natriuretic Peptide 35, Total Protein 9.3H, Albumin 2.8L, Globulin 6.5, Albumin/ Globulin Ratio 0.4L Height (Feet): 5 Height (Inches): 5.00 Weight (Pounds): 123 General Appearance: lethargic EENT: normal ENT inspection Neck: normal alignment Cardiovascular: normal peripheral pulses, normal rate, regular rhythm Respiratory/Chest: chest wall non-tender, lungs clear, normal breath sounds Abdomen: normal bowel sounds, non tender, soft Extremities: normal inspection Edema: no edema noted Arm (L), no edema noted Arm (R), no edema noted Leg (L), no edema noted Leg (R), no edema noted Pedal (L), no edema noted Pedal (R), no edema noted Generalized Neurologic: motor weakness Skin: normal pigmentation, warm/dry Marito Ortega DO May 10, 2019 08:27
--- NOTE | 2019-05-10 08:55 | General Progress Note ---
Assessment/Plan Assessment/Plan: (1) Sacral decubitus ulcer (2) Dementia (3) Encephalopathy (4) Sepsis (5) Cerebral Ataxia (6) Sickle cell disease Pt will be continued on Morphine D/w Dr. Palomino and he concurred. Subjective Date patient seen: May 10, 2019 Time patient seen: 08:15 - am ROS Limited/Unobtainable: Yes Allergies: Coded Allergies: No Known Allergies (Unverified , 04/11/19) Subjective Patient is in bed and continues to be in no signs of pain or distress. Has gotten the Morphine which is reducing his pain as per the nurse. Objective Last 24 Hour Vital Signs Date Time Temp Pulse Resp B/P (MAP) Pulse Ox O2 Delivery O2 Flow Rate FiO2 05/10/19 07:25 97 Nasal Cannula 3.0 32 05/10/19 07:25 101 18 96 Nasal Cannula 3.0 32 05/10/19 05:55 134 123/84 05/10/19 04:00 97.7 134 18 123/84 (97) 98 05/10/19 00:00 97.7 120 14 128/97 (107) 100 05/09/19 22:16 130 133/98 05/09/19 20:00 96.6 130 14 133/98 (110) 98 05/09/19 20:00 122 20 96 Nasal Cannula 3.0 32 05/09/19 20:00 96 Nasal Cannula 3.0 32 05/09/19 19:55 Nasal Cannula 3.0 05/09/19 16:00 98.6 123 19 143/96 (112) 99 05/09/19 14:41 123 129/98 05/09/19 12:00 98.2 123 20 129/98 (108) 95 05/09/19 11:42 Nasal Cannula 3.0 05/09/19 09:00 Nasal Cannula 3.0 Intake and Output 05/09/19 05/10/19 19:00 07:00 Intake Total 380 ml 1020 ml Output Total 450 ml 800 ml Balance -70 ml 220 ml Free Water 260 ml 300 ml Tube Feeding 120 ml 720 ml Output Urine Total 450 ml 800 ml # Bowel Movements 1 Laboratory Tests 05/10/19 04:16: White Blood Count 12.3H, Red Blood Count 4.27L, Hemoglobin 13.2L, Hematocrit 37.9L, Mean Corpuscular Volume 89, Mean Corpuscular Hemoglobin 31.0, Mean Corpuscular Hemoglobin Concent 34.8, Red Cell Distribution Width 17.2H, Platelet Count 483H, Mean Platelet Volume 5.4L, Neutrophils (%) (Auto) 69.2, Lymphocytes (%) (Auto) 20.7, Monocytes (%) (Auto) 6.9, Eosinophils (%) (Auto) 1.7, Basophils (%) (Auto) 1.6, Sodium Level 149H, Potassium Level 4.1, Chloride Level 110H, Carbon Dioxide Level 33H, Anion Gap 6, Blood Urea Nitrogen 17, Creatinine 0.7, Estimat Glomerular Filtration Rate > 60, Glucose Level 115H, Calcium Level 10.3H, Total Bilirubin 0.6, Aspartate Amino Transf (AST/SGOT) 41H , Alanine Aminotransferase (ALT/SGPT) 78, Alkaline Phosphatase 112, Pro-B-Type Natriuretic Peptide 35, Total Protein 9.3H, Albumin 2.8L, Globulin 6.5, Albumin/ Globulin Ratio 0.4L Height (Feet): 5 Height (Inches): 5.00 Weight (Pounds): 123 Objective General Appearance: no apparent distress EENT: normal ENT inspection Neck: non-tender Cardiovascular: normal rate Respiratory/Chest: decreased breath sounds Abdomen: other - Gtube noted Extremities: swelling Edema: trace edema Neurologic: responsive Skin: warm/dry Henrry Allison May 10, 2019 08:55
[2019-05-10] MEDS ORDERED: Morphine Sulfate 4mg/ml Inj (IV USE ONLY) IVP PRN (09:15)
--- NOTE | 2019-05-10 09:20 | NUR ---
RADIOLOGY DEPT., CHEST X-RAY DONE.-P.DYE
--- NOTE | 2019-05-10 09:49 | General Progress Note ---
Assessment/Plan Assessment/Plan: 1. History of CVA. 2. Dysphagia with G-tube. 3. Hypertension. 4. GERD. 5. Epilepsy. 6. Peptic ulcer disease. 7.constipation 8. Elevated LFTS 9. fungemia laxative abd us>>> reviewed>>> gallstones repeat labs repeat LFTS >> improving stable H&H hepatitis panel GTF GT care abx per ID cardiology note appreciated Subjective ROS Limited/Unobtainable: No Allergies: Coded Allergies: No Known Allergies (Unverified , 04/11/19) Objective Last 24 Hour Vital Signs Date Time Temp Pulse Resp B/P (MAP) Pulse Ox O2 Delivery O2 Flow Rate FiO2 05/10/19 07:25 97 Nasal Cannula 3.0 32 05/10/19 07:25 101 18 96 Nasal Cannula 3.0 32 05/10/19 05:55 134 123/84 05/10/19 04:00 97.7 134 18 123/84 (97) 98 05/10/19 00:00 97.7 120 14 128/97 (107) 100 05/09/19 22:16 130 133/98 05/09/19 20:00 96.6 130 14 133/98 (110) 98 05/09/19 20:00 122 20 96 Nasal Cannula 3.0 32 05/09/19 20:00 96 Nasal Cannula 3.0 32 05/09/19 19:55 Nasal Cannula 3.0 05/09/19 16:00 98.6 123 19 143/96 (112) 99 05/09/19 14:41 123 129/98 05/09/19 12:00 98.2 123 20 129/98 (108) 95 05/09/19 11:42 Nasal Cannula 3.0 Intake and Output 05/09/19 05/10/19 18:59 06:59 Intake Total 320 ml 1020 ml Output Total 450 ml 800 ml Balance -130 ml 220 ml Free Water 260 ml 300 ml Tube Feeding 60 ml 720 ml Output Urine Total 450 ml 800 ml # Bowel Movements 1 Laboratory Tests 05/10/19 04:16: White Blood Count 12.3H, Red Blood Count 4.27L, Hemoglobin 13.2L, Hematocrit 37.9L, Mean Corpuscular Volume 89, Mean Corpuscular Hemoglobin 31.0, Mean Corpuscular Hemoglobin Concent 34.8, Red Cell Distribution Width 17.2H, Platelet Count 483H, Mean Platelet Volume 5.4L, Neutrophils (%) (Auto) 69.2, Lymphocytes (%) (Auto) 20.7, Monocytes (%) (Auto) 6.9, Eosinophils (%) (Auto) 1.7, Basophils (%) (Auto) 1.6, Sodium Level 149H, Potassium Level 4.1, Chloride Level 110H, Carbon Dioxide Level 33H, Anion Gap 6, Blood Urea Nitrogen 17, Creatinine 0.7, Estimat Glomerular Filtration Rate > 60, Glucose Level 115H, Calcium Level 10.3H, Total Bilirubin 0.6, Aspartate Amino Transf (AST/SGOT) 41H , Alanine Aminotransferase (ALT/SGPT) 78, Alkaline Phosphatase 112, Pro-B-Type Natriuretic Peptide 35, Total Protein 9.3H, Albumin 2.8L, Globulin 6.5, Albumin/ Globulin Ratio 0.4L Height (Feet): 5 Height (Inches): 5.00 Weight (Pounds): 123 General Appearance: alert EENT: normal ENT inspection Neck: supple Cardiovascular: normal rate Respiratory/Chest: decreased breath sounds Abdomen: soft, hypoactive bowel sounds, tender Extremities: non-tender Faizan Esqueda MD May 10, 2019 09:49
--- NOTE | 2019-05-10 11:06 | Infectious Diseases Prog Note ---
Assessment/Plan Assessment/Plan Assessment: Sepsis Fungemia- r/o endocardiis Blood Cx 04/22/19 - C. alb Blood Cx 04/25/19 2/2 C. albicns Bcx 04/28 p TTE 04/12/19 - No Vegitations PNA - 05/06/19 Sp Cx P.a. - 04/22/19 Sp Cx P.a. and acenetobacter -04/16 CXR: Left greater than right bibasilar opacities may represent atelectasis versus pneumonia. Findings are decreased compared to prior exam. -CXR: Left basilar atelectasis and possible consolidation -sp cx PsA (ramirez S) -influenza sc neg -u/a neg Fever; SP Leukocytosis; decreasing Gram positive bacteremia- contaminant -04/11 Bcx 05/06 CONS; 04/12 Bcx NTD HTN dysphagia s/p GT cerebellar ataxia seizure disorder Alzheimer's dementia SNF resident Plan: - Need to improve respiratory status in order to have GAGAN done - Get GAGAN to r/o Endocarditis - Start Meropenem for the P.a. in the sputum - Continue Micafungin #15 - 05/07/19 SP Zosyn #12 and Bactrim # - 04/24 SP Meropenem #3 and Vancomycin #3 - 04/22/19 SP Zosyn #3 -04/19 SP Cefepime #9 for PsA PNA -04/18 SP Azithromycin #7/7 -04/16 SP IV Vancomycin #6 -04/11 SP Ceftriaxone x1 -Monitor CBC/CMP, temperatures -GT care -aspiration precautions -CBC, CMP am -Cdiff if diarrhea Thank you for consulting [facility]. Will continue to follow along with you. Subjective Allergies: Coded Allergies: No Known Allergies (Unverified , 04/11/19) Subjective Afebrile WBCs 12 Pt still on NC 3L Objective Vital Signs Last 24 Hour Vital Signs Date Time Temp Pulse Resp B/P (MAP) Pulse Ox O2 Delivery O2 Flow Rate FiO2 05/10/19 09:00 Nasal Cannula 3.0 05/10/19 08:00 97.2 69 17 118/84 (95) 100 05/10/19 07:25 97 Nasal Cannula 3.0 32 05/10/19 07:25 101 18 96 Nasal Cannula 3.0 32 05/10/19 05:55 134 123/84 05/10/19 04:00 97.7 134 18 123/84 (97) 98 05/10/19 00:00 97.7 120 14 128/97 (107) 100 05/09/19 22:16 130 133/98 05/09/19 20:00 96.6 130 14 133/98 (110) 98 05/09/19 20:00 122 20 96 Nasal Cannula 3.0 32 05/09/19 20:00 96 Nasal Cannula 3.0 32 05/09/19 19:55 Nasal Cannula 3.0 05/09/19 16:00 98.6 123 19 143/96 (112) 99 05/09/19 14:41 123 129/98 05/09/19 12:00 98.2 123 20 129/98 (108) 95 05/09/19 11:42 Nasal Cannula 3.0 Height (Feet): 5 Height (Inches): 5.00 Weight (Pounds): 123 Objective GENERAL: Awake, NAD on 3L NC HEENT: NCAT, MMM, EOMI CARDIOVASCULAR: RRR, S1,S2 LUNGS: Coarse B/L, No W ABDOMEN: Bowel sounds distant. Laboratory Tests Test 05/10/19 04:16 White Blood Count 12.3 K/UL (4.8-10.8) H Red Blood Count 4.27 M/UL (4.70-6.10) L Hemoglobin 13.2 G/DL (14.2-18.0) L Hematocrit 37.9 % (42.0-52.0) L Mean Corpuscular Volume 89 FL (80-99) Mean Corpuscular Hemoglobin 31.0 PG (27.0-31.0) Mean Corpuscular Hemoglobin Concent 34.8 G/DL (32.0-36.0) Red Cell Distribution Width 17.2 % (11.6-14.8) H Platelet Count 483 K/UL (150-450) H Mean Platelet Volume 5.4 FL (6.5-10.1) L Neutrophils (%) (Auto) 69.2 % (45.0-75.0) Lymphocytes (%) (Auto) 20.7 % (20.0-45.0) Monocytes (%) (Auto) 6.9 % (1.0-10.0) Eosinophils (%) (Auto) 1.7 % (0.0-3.0) Basophils (%) (Auto) 1.6 % (0.0-2.0) Sodium Level 149 MMOL/L (136-145) H Potassium Level 4.1 MMOL/L (3.5-5.1) Chloride Level 110 MMOL/L (98-107) H Carbon Dioxide Level 33 MMOL/L (21-32) H Anion Gap 6 mmol/L (5-15) Blood Urea Nitrogen 17 mg/dL (7-18) Creatinine 0.7 MG/DL (0.55-1.30) Estimat Glomerular Filtration Rate > 60 mL/min (>60) Glucose Level 115 MG/DL (74-106) H Calcium Level 10.3 MG/DL (8.5-10.1) H Total Bilirubin 0.6 MG/DL (0.2-1.0) Aspartate Amino Transf (AST/SGOT) 41 U/L (15-37) H Alanine Aminotransferase (ALT/SGPT) 78 U/L (12-78) Alkaline Phosphatase 112 U/L (46-116) Pro-B-Type Natriuretic Peptide 35 pg/mL (0-125) Total Protein 9.3 G/DL (6.4-8.2) H Albumin 2.8 G/DL (3.4-5.0) L Globulin 6.5 g/dL Albumin/Globulin Ratio 0.4 (1.0-2.7) L Current Medications Medications (Trade) Dose Ordered Sig/Kory Route PRN Reason Start Time Stop Time Status Last Admin Dose Admin Acetaminophen (Tylenol) 650 mg Q6H PRN GT Mild Pain/Temp > 100.5 04/16/19 17:30 05/11/19 17:29 04/30/19 01:08 Albuterol/ Ipratropium (Albuterol/ Ipratropium) 3 ml Q4H PRN HHN Shortness of Breath 05/08/19 12:45 05/13/19 12:44 05/08/19 17:49 Dextrose (Dextrose 50%) 25 ml Q30M PRN IV Hypoglycemia 04/16/19 17:30 05/13/19 16:29 05/04/19 04:47 Dextrose (Dextrose 50%) 50 ml Q30M PRN IV Hypoglycemia 04/16/19 17:30 05/13/19 16:29 Docusate Sodium (Colace) 100 mg TWICE A DAY GT 05/01/19 18:00 05/31/19 17:59 05/10/19 08:20 Donepezil HCl (Aricept) 10 mg DAILY GT 04/17/19 09:00 05/12/19 08:59 05/10/19 08:20 Heparin Sodium (Porcine) (Heparin 5000 units/ml) 5,000 units EVERY 12 HOURS SUBQ 04/16/19 21:00 05/12/19 10:59 05/10/19 08:21 Insulin Aspart (NovoLOG) Q6HR SUBQ 04/16/19 18:00 05/13/19 17:59 05/10/19 05:56 Lactobacillus Acidophilus (Culturelle) 1 tab DAILY GT 04/17/19 09:00 05/12/19 08:59 05/10/19 08:20 Lactulose (Cephulac) 10 gm THREE TIMES A DAY GT 05/01/19 13:00 05/31/19 12:59 05/10/19 08:20 Lansoprazole (Prevacid) 30 mg DAILY GT 04/17/19 09:00 05/12/19 08:59 05/10/19 08:20 Lorazepam (Ativan 2mg/ml 1ml) 1 mg Q4H PRN IV for Restlessness 05/05/19 16:30 05/12/19 16:29 05/05/19 16:36 Micafungin Sodium 100 mg/Dextrose 110 ml @ 110 mls/hr Q24H IVPB 04/30/19 12:00 05/12/19 11:59 05/10/19 08:20 Morphine Sulfate (Morphine Sulfate) 4 mg Q4H PRN IVP Moderate to severe Pain 05/10/19 09:15 05/17/19 09:14 Multivitamins (Multivitamins W/ Minerals 15ml Liquid) 15 ml DAILY GT 04/17/19 09:00 05/12/19 08:59 05/10/19 08:20 Ondansetron HCl (Zofran) 4 mg Q6H PRN GT Nausea & Vomiting 04/16/19 17:30 05/12/19 17:29 Phenytoin 300 mg/ Sodium Chloride 55 ml @ 110 mls/hr DAILY IV 04/17/19 09:00 05/17/19 08:59 05/09/19 08:46 Polyethylene Glycol (Miralax) 17 gm BEDTIME GT 05/01/19 21:00 05/31/19 20:59 05/09/19 20:20 Primidone (Mysoline) 100 mg QHS GT 04/16/19 21:00 05/12/19 20:59 05/09/19 20:20 Sodium Phosphate (Fleet's Sodium Phosl Enema) 133 ml BIDPRN PRN RECTAL Constipation 05/01/19 18:15 05/31/19 18:14 05/01/19 23:17 Verapamil HCl (Calan) 80 mg EVERY 8 HOURS GT 04/18/19 14:45 05/16/19 14:44 05/10/19 05:55 Rayshawn Soni MD May 10, 2019 11:06
[2019-05-10] MEDS: PHENYTOIN IV SCH (11:07)
[2019-05-10] MEDS: NS IV SCH (11:07)
[2019-05-10 12:00] VITALS: BP 117/94
--- NOTE | 2019-05-10 12:11 | Cardiac Electrophysiology PN ---
Assessment/Plan Assessment/Plan 1. Sinus tachycardia. No clear documentation of atrial fib or supraventricular tachycardia. His echo showed ejection fraction of 65%. Continue verapamil 80 mg every 8 hours through G-tube. 2. Hypertension, stable on verapamil. 3. Fungemia. Awaiting stabilization for GAGAN by Dr. Abad 4. Dysphagia, status post PEG placement. 5. History of CVA. 6. Epilepsy. 7. Peptic ulcer disease. 8. Elevated liver function tests. SHIRLEY RN Subjective Subjective Awaiting respiratory improvement before GAGAN. No new events. Objective Last 24 Hour Vital Signs Date Time Temp Pulse Resp B/P (MAP) Pulse Ox O2 Delivery O2 Flow Rate FiO2 05/10/19 09:00 Nasal Cannula 3.0 05/10/19 08:00 97.2 69 17 118/84 (95) 100 05/10/19 07:25 97 Nasal Cannula 3.0 32 05/10/19 07:25 101 18 96 Nasal Cannula 3.0 32 05/10/19 05:55 134 123/84 05/10/19 04:00 97.7 134 18 123/84 (97) 98 05/10/19 00:00 97.7 120 14 128/97 (107) 100 05/09/19 22:16 130 133/98 05/09/19 20:00 96.6 130 14 133/98 (110) 98 05/09/19 20:00 122 20 96 Nasal Cannula 3.0 32 05/09/19 20:00 96 Nasal Cannula 3.0 32 05/09/19 19:55 Nasal Cannula 3.0 05/09/19 16:00 98.6 123 19 143/96 (112) 99 05/09/19 14:41 123 129/98 Intake and Output 05/09/19 05/10/19 19:00 07:00 Intake Total 380 ml 1020 ml Output Total 450 ml 800 ml Balance -70 ml 220 ml Free Water 260 ml 300 ml Tube Feeding 120 ml 720 ml Output Urine Total 450 ml 800 ml # Bowel Movements 1 Laboratory Tests Test 05/10/19 04:16 White Blood Count 12.3 K/UL (4.8-10.8) H Red Blood Count 4.27 M/UL (4.70-6.10) L Hemoglobin 13.2 G/DL (14.2-18.0) L Hematocrit 37.9 % (42.0-52.0) L Mean Corpuscular Volume 89 FL (80-99) Mean Corpuscular Hemoglobin 31.0 PG (27.0-31.0) Mean Corpuscular Hemoglobin Concent 34.8 G/DL (32.0-36.0) Red Cell Distribution Width 17.2 % (11.6-14.8) H Platelet Count 483 K/UL (150-450) H Mean Platelet Volume 5.4 FL (6.5-10.1) L Neutrophils (%) (Auto) 69.2 % (45.0-75.0) Lymphocytes (%) (Auto) 20.7 % (20.0-45.0) Monocytes (%) (Auto) 6.9 % (1.0-10.0) Eosinophils (%) (Auto) 1.7 % (0.0-3.0) Basophils (%) (Auto) 1.6 % (0.0-2.0) Sodium Level 149 MMOL/L (136-145) H Potassium Level 4.1 MMOL/L (3.5-5.1) Chloride Level 110 MMOL/L (98-107) H Carbon Dioxide Level 33 MMOL/L (21-32) H Anion Gap 6 mmol/L (5-15) Blood Urea Nitrogen 17 mg/dL (7-18) Creatinine 0.7 MG/DL (0.55-1.30) Estimat Glomerular Filtration Rate > 60 mL/min (>60) Glucose Level 115 MG/DL (74-106) H Calcium Level 10.3 MG/DL (8.5-10.1) H Total Bilirubin 0.6 MG/DL (0.2-1.0) Aspartate Amino Transf (AST/SGOT) 41 U/L (15-37) H Alanine Aminotransferase (ALT/SGPT) 78 U/L (12-78) Alkaline Phosphatase 112 U/L (46-116) Pro-B-Type Natriuretic Peptide 35 pg/mL (0-125) Total Protein 9.3 G/DL (6.4-8.2) H Albumin 2.8 G/DL (3.4-5.0) L Globulin 6.5 g/dL Albumin/Globulin Ratio 0.4 (1.0-2.7) L Objective HEAD AND NECK: No JVD. LUNGS: Coarse rhonchi. CARDIOVASCULAR: Regular S1 and S2 with no gallop or murmur. ABDOMEN: Status post G-tube. EXTREMITIES: No pitting edema. Kyree Soto MD May 10, 2019 12:11
--- NOTE | 2019-05-10 13:10 | Pulmonology Progress Note ---
Assessment/Plan Problems: (1) Fungemia (2) Sepsis (3) Nosocomial pneumonia (4) Chronic tachycardia (5) Epilepsy (6) Hereditary cerebellar ataxia (7) Cavitary lung disease (8) ZM-Yfgcgti-Npltgd disease (9) Feeding by G-tube Assessment/Plan still tachy at 120 Yeast in Blood cultures, last cultures are negative sputum has pseudomonas, pansensitive iv abx symptomatic treatment feeding by Gtube aspiration precaution Verapamil for chronic tachycardia, double the dose since, heart rate is low 100 monitor heart rate prbc prn Hem< 8 dvt prophylaxis. reviewed echo: normal EF Subjective ROS Limited/Unobtainable: Yes Constitutional: Reports: no symptoms HEENT: Repors: no symptoms Allergies: Coded Allergies: No Known Allergies (Unverified , 04/11/19) Objective Last 24 Hour Vital Signs Date Time Temp Pulse Resp B/P (MAP) Pulse Ox O2 Delivery O2 Flow Rate FiO2 05/10/19 12:00 97.2 104 17 117/94 (102) 94 05/10/19 09:00 Nasal Cannula 3.0 05/10/19 08:00 97.2 69 17 118/84 (95) 100 05/10/19 07:25 97 Nasal Cannula 3.0 32 05/10/19 07:25 101 18 96 Nasal Cannula 3.0 32 05/10/19 05:55 134 123/84 05/10/19 04:00 97.7 134 18 123/84 (97) 98 05/10/19 00:00 97.7 120 14 128/97 (107) 100 05/09/19 22:16 130 133/98 05/09/19 20:00 96.6 130 14 133/98 (110) 98 05/09/19 20:00 122 20 96 Nasal Cannula 3.0 32 05/09/19 20:00 96 Nasal Cannula 3.0 32 05/09/19 19:55 Nasal Cannula 3.0 05/09/19 16:00 98.6 123 19 143/96 (112) 99 05/09/19 14:41 123 129/98 Intake and Output 05/09/19 05/10/19 19:00 07:00 Intake Total 380 ml 1020 ml Output Total 450 ml 800 ml Balance -70 ml 220 ml Free Water 260 ml 300 ml Tube Feeding 120 ml 720 ml Output Urine Total 450 ml 800 ml # Bowel Movements 1 Objective General Appearance: no acute distress HEENT: normocephalic, anicteric Respiratory/Chest: chest wall non-tender, rhonchi Cardiovascular: normal peripheral pulses, normal rate, regular rhythm Abdomen: normal bowel sounds, soft, non tender Genitourinary: normal external genitalia Extremities: no cyanosis Laboratory Tests 05/10/19 04:16: White Blood Count 12.3H, Red Blood Count 4.27L, Hemoglobin 13.2L, Hematocrit 37.9L, Mean Corpuscular Volume 89, Mean Corpuscular Hemoglobin 31.0, Mean Corpuscular Hemoglobin Concent 34.8, Red Cell Distribution Width 17.2H, Platelet Count 483H, Mean Platelet Volume 5.4L, Neutrophils (%) (Auto) 69.2, Lymphocytes (%) (Auto) 20.7, Monocytes (%) (Auto) 6.9, Eosinophils (%) (Auto) 1.7, Basophils (%) (Auto) 1.6, Sodium Level 149H, Potassium Level 4.1, Chloride Level 110H, Carbon Dioxide Level 33H, Anion Gap 6, Blood Urea Nitrogen 17, Creatinine 0.7, Estimat Glomerular Filtration Rate > 60, Glucose Level 115H, Calcium Level 10.3H, Total Bilirubin 0.6, Aspartate Amino Transf (AST/SGOT) 41H , Alanine Aminotransferase (ALT/SGPT) 78, Alkaline Phosphatase 112, Pro-B-Type Natriuretic Peptide 35, Total Protein 9.3H, Albumin 2.8L, Globulin 6.5, Albumin/ Globulin Ratio 0.4L Current Medications Medications (Trade) Dose Ordered Sig/Kory Route PRN Reason Start Time Stop Time Status Last Admin Dose Admin Acetaminophen (Tylenol) 650 mg Q6H PRN GT Mild Pain/Temp > 100.5 04/16/19 17:30 05/11/19 17:29 04/30/19 01:08 Albuterol/ Ipratropium (Albuterol/ Ipratropium) 3 ml Q4H PRN HHN Shortness of Breath 05/08/19 12:45 05/13/19 12:44 05/08/19 17:49 Dextrose (Dextrose 50%) 25 ml Q30M PRN IV Hypoglycemia 04/16/19 17:30 05/13/19 16:29 05/04/19 04:47 Dextrose (Dextrose 50%) 50 ml Q30M PRN IV Hypoglycemia 04/16/19 17:30 05/13/19 16:29 Docusate Sodium (Colace) 100 mg TWICE A DAY GT 05/01/19 18:00 05/31/19 17:59 05/10/19 08:20 Donepezil HCl (Aricept) 10 mg DAILY GT 04/17/19 09:00 05/12/19 08:59 05/10/19 08:20 Heparin Sodium (Porcine) (Heparin 5000 units/ml) 5,000 units EVERY 12 HOURS SUBQ 04/16/19 21:00 05/12/19 10:59 05/10/19 08:21 Insulin Aspart (NovoLOG) Q6HR SUBQ 04/16/19 18:00 05/13/19 17:59 05/10/19 05:56 Lactobacillus Acidophilus (Culturelle) 1 tab DAILY GT 04/17/19 09:00 05/12/19 08:59 05/10/19 08:20 Lactulose (Cephulac) 10 gm THREE TIMES A DAY GT 05/01/19 13:00 05/31/19 12:59 05/10/19 12:15 Lansoprazole (Prevacid) 30 mg DAILY GT 04/17/19 09:00 05/12/19 08:59 05/10/19 08:20 Lorazepam (Ativan 2mg/ml 1ml) 1 mg Q4H PRN IV for Restlessness 05/05/19 16:30 05/12/19 16:29 05/05/19 16:36 Meropenem 1 gm/ Sodium Chloride 55 ml @ 110 mls/hr Q8HR IVPB 05/10/19 14:00 05/15/19 13:59 Micafungin Sodium 100 mg/Dextrose 110 ml @ 110 mls/hr Q24H IVPB 04/30/19 12:00 05/12/19 11:59 05/10/19 08:20 Morphine Sulfate (Morphine Sulfate) 4 mg Q4H PRN IVP Moderate to severe Pain 05/10/19 09:15 05/17/19 09:14 Multivitamins (Multivitamins W/ Minerals 15ml Liquid) 15 ml DAILY GT 04/17/19 09:00 05/12/19 08:59 05/10/19 08:20 Ondansetron HCl (Zofran) 4 mg Q6H PRN GT Nausea & Vomiting 04/16/19 17:30 05/12/19 17:29 Phenytoin 300 mg/ Sodium Chloride 55 ml @ 110 mls/hr DAILY IV 04/17/19 09:00 05/17/19 08:59 05/10/19 11:07 Polyethylene Glycol (Miralax) 17 gm BEDTIME GT 05/01/19 21:00 05/31/19 20:59 05/09/19 20:20 Primidone (Mysoline) 100 mg QHS GT 04/16/19 21:00 05/12/19 20:59 05/09/19 20:20 Sodium Phosphate (Fleet's Sodium Phosl Enema) 133 ml BIDPRN PRN RECTAL Constipation 05/01/19 18:15 05/31/19 18:14 05/01/19 23:17 Verapamil HCl (Calan) 80 mg EVERY 8 HOURS GT 04/18/19 14:45 05/16/19 14:44 05/10/19 05:55 Carlos Sauer MD May 10, 2019 13:10
[2019-05-10] MEDS: Meropenem 1 GM in NS 55 ML IVPB SCH ×2 (14:29→21:07)
--- NOTE | 2019-05-10 14:43 | Diagnostic Imaging Report ---
Indication: Dyspnea Comparison: 05/05/2019 A single view chest radiograph was obtained. Findings: Persistent elevated left hemidiaphragm and atelectasis demonstrated. Heart size is normal. Aorta is ectatic. Bones are osteopenic. IMPRESSION: No change from the prior examination. Left basal atelectasis
[2019-05-10 16:00] VITALS: BP 121/74
--- NOTE | 2019-05-10 19:36 | NUR ---
HAND-OFF: Report given to EDUAR Farris.
--- NOTE | 2019-05-10 19:54 | NUR ---
NURSE NOTES: Pt is in bed, asleep. No acute distress noted. Pt appears to be comfortable. No SOB. HOB elevated. Pt is on aspiration precaution. Jevity 1.2 running at 60ml/hr. Garcia cath draining yellow urine. Nasal canula @ 3L. Pt will be suctioned as needed. Pain medication will be given as ordered PRN. Pt will be repositioned frequently. Bed locked low in position,side rails up and call light within reach. Pt will be monitored.
[2019-05-10 20:00] VITALS: BP 128/91
[2019-05-10] MEDS: Miralax 17gm pkt GT SCH (21:07)
[2019-05-11] VITALS: BP 115/85
[2019-05-11] MEDS: Acetaminophen 650mg/20.3ml GT PRN (01:40)
[2019-05-11] MEDS: NovoLOG Insulin Flexpen SUBQ SCH ×5 (01:41→23:57)
--- NOTE | 2019-05-11 01:44 | NUR ---
NURSE NOTES: Pt's temp 100.6n axiliary; Tylenol 650mg given as ordered PRN
[2019-05-11 04:00] VITALS: BP 129/88
[2019-05-11 05:59] LABS: BASOPHILS % (AUTO) 1.2 % (0.0-2.0); EOSINOPHILS % (AUTO) 0.2 % (0.0-3.0); HEMATOCRIT 39.3 % (42.0-52.0); HEMOGLOBIN 13.8 G/DL (14.2-18.0); LYMPHOCYTES % (AUTO) 14.9 % (20.0-45.0); MEAN CORPUSCULAR VOLUME 89 FL (80-99); MONOCYTES % (AUTO) 7.5 % (1.0-10.0); NEUTROPHILS % (AUTO) 76.1 % (45.0-75.0); PLATELET COUNT 390 K/UL (150-450); RED BLOOD COUNT 4.41 M/UL (4.70-6.10); WHITE BLOOD COUNT 13.8 K/UL (4.8-10.8)
[2019-05-11] MEDS: Meropenem 1 GM in NS 55 ML IVPB SCH ×3 (06:01→21:39)
[2019-05-11] MEDS: Verapamil 80mg tab GT SCH ×3 (06:01→21:39)
[2019-05-11 06:37] LABS: ANION GAP 12 mmol/L (5-15); BLOOD UREA NITROGEN 22 mg/dL (7-18); CARBON DIOXIDE 30 MMOL/L (21-32); CHLORIDE 113 MMOL/L (98-107); CREATININE 0.8 MG/DL (0.55-1.30); POTASSIUM 3.7 MMOL/L (3.5-5.1); SODIUM 155 MMOL/L (136-145)
--- NOTE | 2019-05-11 07:15 | NUR ---
HAND-OFF: Report given to EDUAR Benavides.
--- NOTE | 2019-05-11 07:28 | NUR ---
NURSE NOTES: received report from EDUAR Farris. patient in bed, sleeping. no respiratory distress noted on 3L via NC. no facial grimacing. IV on LFA saline lock. intact. F/C draining. dark yellow. no sediment noted. bed in the lowest position and locked. call light within reach. alarm on. will continue to provide plan of care.
[2019-05-11 08:00] VITALS: BP 131/80
[2019-05-11] MEDS: Donepezil 10mg tab GT SCH (08:14)
[2019-05-11] MEDS: Lactobacillus-GG tablet GT SCH (08:14)
[2019-05-11] MEDS: Docusate 100mg/10ml Liq GT SCH ×2 (08:14→18:04)
[2019-05-11] MEDS: Lactulose 10gm/15ml UDC GT SCH ×3 (08:14→18:04)
[2019-05-11] MEDS: Multivitamins W/Minerals 15 ML UDC GT SCH (08:15)
[2019-05-11] MEDS: NS IV SCH (08:16)
[2019-05-11] MEDS: PHENYTOIN IV SCH (08:16)
[2019-05-11] MEDS: Heparin 5000 units/ml inj SUBQ SCH ×2 (08:16→21:40)
--- NOTE | 2019-05-11 09:04 | General Progress Note ---
Assessment/Plan Assessment/Plan: (1) Sacral decubitus ulcer (2) Dementia (3) Encephalopathy (4) Sepsis (5) Cerebral Ataxia (6) Sickle cell disease Pt will be continued on Morphine D/w Dr. Palomino and he concurred. Subjective Date patient seen: May 11, 2019 Time patient seen: 08:00 - am Allergies: Coded Allergies: No Known Allergies (Unverified , 04/11/19) Subjective Patient showing no signs of pain or distress. No morphine has been administered in the last 24hrs. Objective Last 24 Hour Vital Signs Date Time Temp Pulse Resp B/P (MAP) Pulse Ox O2 Delivery O2 Flow Rate FiO2 05/11/19 08:00 98.6 120 18 131/80 (97) 97 05/11/19 06:01 130 129/88 05/11/19 04:00 98.6 130 20 129/88 (102) 96 05/11/19 02:10 98.6 05/11/19 00:00 100.6 131 16 115/85 (95) 98 05/10/19 21:07 111 128/91 05/10/19 21:00 Nasal Cannula 3.0 05/10/19 20:25 95 Nasal Cannula 3.0 32 05/10/19 20:25 111 20 95 Nasal Cannula 3.0 32 05/10/19 20:00 98.0 130 16 128/91 (103) 98 05/10/19 16:00 97.4 135 19 121/74 (90) 97 05/10/19 14:29 130 119/95 05/10/19 12:00 97.2 104 17 117/94 (102) 94 Intake and Output 05/10/19 05/11/19 19:00 07:00 Intake Total 1140 ml 1030 ml Output Total 1100 ml 700 ml Balance 40 ml 330 ml Free Water 200 ml 200 ml IV Total 220 ml 110 ml Tube Feeding 720 ml 720 ml Output Urine Total 1100 ml 700 ml Laboratory Tests 05/11/19 04:25: White Blood Count 13.8H, Red Blood Count 4.41L, Hemoglobin 13.8L, Hematocrit 39.3L, Mean Corpuscular Volume 89, Mean Corpuscular Hemoglobin 31.3H, Mean Corpuscular Hemoglobin Concent 35.2, Red Cell Distribution Width 17.0H, Platelet Count 390, Mean Platelet Volume 5.9L, Neutrophils (%) (Auto) 76.1H, Lymphocytes (%) (Auto) 14.9L, Monocytes (%) (Auto) 7.5, Eosinophils (%) (Auto) 0.2, Basophils (%) (Auto) 1.2, Sodium Level 155H, Potassium Level 3.7, Chloride Level 113H, Carbon Dioxide Level 30, Anion Gap 12, Blood Urea Nitrogen 22H, Creatinine 0.8, Estimat Glomerular Filtration Rate > 60, Glucose Level 123H, Calcium Level 10.0 Height (Feet): 5 Height (Inches): 5.00 Weight (Pounds): 123 Objective General Appearance: no apparent distress EENT: normal ENT inspection Neck: non-tender Cardiovascular: normal rate Respiratory/Chest: decreased breath sounds Abdomen: other - Gtube noted Extremities: swelling Edema: trace edema Neurologic: responsive Skin: warm/dry Henrry Allison May 11, 2019 09:04
--- NOTE | 2019-05-11 11:03 | Cardiac Electrophysiology PN ---
Assessment/Plan Assessment/Plan 1. Sinus tachycardia. Better. No atrial fib or supraventricular tachycardia. Echo showed ejection fraction of 65%. Continue verapamil 80 mg every 8 hours through G-tube. 2. Hypertension, stable on verapamil. 3. Fungemia. Awaiting stabilization for GAGAN by Dr. Abad 4. Dysphagia, status post PEG placement. 5. History of CVA. 6. Epilepsy. 7. Peptic ulcer disease. 8. Elevated liver function tests. SHIRLEY RN Subjective Subjective No new events. Pending GAGAN. Objective Last 24 Hour Vital Signs Date Time Temp Pulse Resp B/P (MAP) Pulse Ox O2 Delivery O2 Flow Rate FiO2 05/11/19 09:00 Nasal Cannula 3.0 05/11/19 08:00 98.6 120 18 131/80 (97) 97 05/11/19 06:01 130 129/88 05/11/19 04:00 98.6 130 20 129/88 (102) 96 05/11/19 02:10 98.6 05/11/19 00:00 100.6 131 16 115/85 (95) 98 05/10/19 21:07 111 128/91 05/10/19 21:00 Nasal Cannula 3.0 05/10/19 20:25 95 Nasal Cannula 3.0 32 05/10/19 20:25 111 20 95 Nasal Cannula 3.0 32 05/10/19 20:00 98.0 130 16 128/91 (103) 98 05/10/19 16:00 97.4 135 19 121/74 (90) 97 05/10/19 14:29 130 119/95 05/10/19 12:00 97.2 104 17 117/94 (102) 94 Intake and Output 05/10/19 05/11/19 19:00 07:00 Intake Total 1140 ml 1030 ml Output Total 1100 ml 700 ml Balance 40 ml 330 ml Free Water 200 ml 200 ml IV Total 220 ml 110 ml Tube Feeding 720 ml 720 ml Output Urine Total 1100 ml 700 ml Laboratory Tests Test 05/11/19 04:25 White Blood Count 13.8 K/UL (4.8-10.8) H Red Blood Count 4.41 M/UL (4.70-6.10) L Hemoglobin 13.8 G/DL (14.2-18.0) L Hematocrit 39.3 % (42.0-52.0) L Mean Corpuscular Volume 89 FL (80-99) Mean Corpuscular Hemoglobin 31.3 PG (27.0-31.0) H Mean Corpuscular Hemoglobin Concent 35.2 G/DL (32.0-36.0) Red Cell Distribution Width 17.0 % (11.6-14.8) H Platelet Count 390 K/UL (150-450) Mean Platelet Volume 5.9 FL (6.5-10.1) L Neutrophils (%) (Auto) 76.1 % (45.0-75.0) H Lymphocytes (%) (Auto) 14.9 % (20.0-45.0) L Monocytes (%) (Auto) 7.5 % (1.0-10.0) Eosinophils (%) (Auto) 0.2 % (0.0-3.0) Basophils (%) (Auto) 1.2 % (0.0-2.0) Sodium Level 155 MMOL/L (136-145) H Potassium Level 3.7 MMOL/L (3.5-5.1) Chloride Level 113 MMOL/L (98-107) H Carbon Dioxide Level 30 MMOL/L (21-32) Anion Gap 12 mmol/L (5-15) Blood Urea Nitrogen 22 mg/dL (7-18) H Creatinine 0.8 MG/DL (0.55-1.30) Estimat Glomerular Filtration Rate > 60 mL/min (>60) Glucose Level 123 MG/DL (74-106) H Calcium Level 10.0 MG/DL (8.5-10.1) Objective HEAD AND NECK: No JVD. LUNGS: Coarse rhonchi. CARDIOVASCULAR: Regular S1 and S2 with no gallop or murmur. ABDOMEN: Status post G-tube. EXTREMITIES: No pitting edema. Kyree Soto MD May 11, 2019 11:03
--- NOTE | 2019-05-11 11:36 | Infectious Diseases Prog Note ---
Assessment/Plan Assessment/Plan Assessment: Sepsis Fungemia- r/o endocardiis Blood Cx 04/22/19 - C. alb Blood Cx 04/25/19 2/2 C. albicns Bcx 04/28 p TTE 04/12/19 - No Vegitations PNA - 05/06/19 Sp Cx P.a. - 04/22/19 Sp Cx P.a. and acenetobacter -04/16 CXR: Left greater than right bibasilar opacities may represent atelectasis versus pneumonia. Findings are decreased compared to prior exam. -CXR: Left basilar atelectasis and possible consolidation -sp cx PsA (ramirez S) -influenza sc neg -u/a neg Fever; SP Leukocytosis; decreasing Gram positive bacteremia- contaminant -04/11 Bcx 05/06 CONS; 04/12 Bcx NTD HTN dysphagia s/p GT cerebellar ataxia seizure disorder Alzheimer's dementia SNF resident Plan: - Need to improve respiratory status in order to have GAGAN done - Get GAGAN to r/o Endocarditis - Meropenem #2 for the P.a. in the sputum - Continue Micafungin #16 - 05/07/19 SP Zosyn #12 and Bactrim # - 04/24 SP Meropenem #3 and Vancomycin #3 - 04/22/19 SP Zosyn #3 -04/19 SP Cefepime #9 for PsA PNA -04/18 SP Azithromycin #7/7 -04/16 SP IV Vancomycin #6 -04/11 SP Ceftriaxone x1 -Monitor CBC/CMP, temperatures -GT care -aspiration precautions -CBC, CMP am -Cdiff if diarrhea Thank you for consulting [facility]. Will continue to follow along with you. Subjective Allergies: Coded Allergies: No Known Allergies (Unverified , 04/11/19) Subjective Afebrile WBCs 14 Pt still on NC 3L Objective Vital Signs Last 24 Hour Vital Signs Date Time Temp Pulse Resp B/P (MAP) Pulse Ox O2 Delivery O2 Flow Rate FiO2 05/11/19 09:00 Nasal Cannula 3.0 05/11/19 08:00 98.6 120 18 131/80 (97) 97 05/11/19 06:01 130 129/88 05/11/19 04:00 98.6 130 20 129/88 (102) 96 05/11/19 02:10 98.6 05/11/19 00:00 100.6 131 16 115/85 (95) 98 05/10/19 21:07 111 128/91 05/10/19 21:00 Nasal Cannula 3.0 05/10/19 20:25 95 Nasal Cannula 3.0 32 05/10/19 20:25 111 20 95 Nasal Cannula 3.0 32 05/10/19 20:00 98.0 130 16 128/91 (103) 98 05/10/19 16:00 97.4 135 19 121/74 (90) 97 05/10/19 14:29 130 119/95 05/10/19 12:00 97.2 104 17 117/94 (102) 94 Height (Feet): 5 Height (Inches): 5.00 Weight (Pounds): 123 Objective GENERAL: NAD on 3L NC HEENT: NCAT, MMM, EOMI CARDIOVASCULAR: RRR, S1,S2 LUNGS: Coarse B/L, No W ABDOMEN: Bowel sounds distant. Laboratory Tests Test 05/11/19 04:25 White Blood Count 13.8 K/UL (4.8-10.8) H Red Blood Count 4.41 M/UL (4.70-6.10) L Hemoglobin 13.8 G/DL (14.2-18.0) L Hematocrit 39.3 % (42.0-52.0) L Mean Corpuscular Volume 89 FL (80-99) Mean Corpuscular Hemoglobin 31.3 PG (27.0-31.0) H Mean Corpuscular Hemoglobin Concent 35.2 G/DL (32.0-36.0) Red Cell Distribution Width 17.0 % (11.6-14.8) H Platelet Count 390 K/UL (150-450) Mean Platelet Volume 5.9 FL (6.5-10.1) L Neutrophils (%) (Auto) 76.1 % (45.0-75.0) H Lymphocytes (%) (Auto) 14.9 % (20.0-45.0) L Monocytes (%) (Auto) 7.5 % (1.0-10.0) Eosinophils (%) (Auto) 0.2 % (0.0-3.0) Basophils (%) (Auto) 1.2 % (0.0-2.0) Sodium Level 155 MMOL/L (136-145) H Potassium Level 3.7 MMOL/L (3.5-5.1) Chloride Level 113 MMOL/L (98-107) H Carbon Dioxide Level 30 MMOL/L (21-32) Anion Gap 12 mmol/L (5-15) Blood Urea Nitrogen 22 mg/dL (7-18) H Creatinine 0.8 MG/DL (0.55-1.30) Estimat Glomerular Filtration Rate > 60 mL/min (>60) Glucose Level 123 MG/DL (74-106) H Calcium Level 10.0 MG/DL (8.5-10.1) Current Medications Medications (Trade) Dose Ordered Sig/Kory Route PRN Reason Start Time Stop Time Status Last Admin Dose Admin Acetaminophen (Tylenol) 650 mg Q6H PRN GT Mild Pain/Temp > 100.5 04/16/19 17:30 05/11/19 17:29 05/11/19 01:40 Albuterol/ Ipratropium (Albuterol/ Ipratropium) 3 ml Q4H PRN HHN Shortness of Breath 05/08/19 12:45 05/13/19 12:44 05/08/19 17:49 Dextrose (Dextrose 50%) 25 ml Q30M PRN IV Hypoglycemia 04/16/19 17:30 05/13/19 16:29 05/04/19 04:47 Dextrose (Dextrose 50%) 50 ml Q30M PRN IV Hypoglycemia 04/16/19 17:30 05/13/19 16:29 Docusate Sodium (Colace) 100 mg TWICE A DAY GT 05/01/19 18:00 05/31/19 17:59 05/11/19 08:14 Donepezil HCl (Aricept) 10 mg DAILY GT 04/17/19 09:00 05/12/19 08:59 05/11/19 08:14 Heparin Sodium (Porcine) (Heparin 5000 units/ml) 5,000 units EVERY 12 HOURS SUBQ 04/16/19 21:00 05/12/19 10:59 05/11/19 08:16 Insulin Aspart (NovoLOG) Q6HR SUBQ 04/16/19 18:00 05/13/19 17:59 05/11/19 06:02 Lactobacillus Acidophilus (Culturelle) 1 tab DAILY GT 04/17/19 09:00 05/12/19 08:59 05/11/19 08:14 Lactulose (Cephulac) 10 gm THREE TIMES A DAY GT 05/01/19 13:00 05/31/19 12:59 05/11/19 08:14 Lansoprazole (Prevacid) 30 mg DAILY GT 04/17/19 09:00 05/12/19 08:59 05/11/19 08:15 Lorazepam (Ativan 2mg/ml 1ml) 1 mg Q4H PRN IV for Restlessness 05/05/19 16:30 05/12/19 16:29 05/05/19 16:36 Meropenem 1 gm/ Sodium Chloride 55 ml @ 110 mls/hr Q8HR IVPB 05/10/19 14:00 05/15/19 13:59 05/11/19 06:01 Micafungin Sodium 100 mg/Dextrose 110 ml @ 110 mls/hr Q24H IVPB 04/30/19 12:00 05/12/19 11:59 05/10/19 08:20 Morphine Sulfate (Morphine Sulfate) 4 mg Q4H PRN IVP Moderate to severe Pain 05/10/19 09:15 05/17/19 09:14 Multivitamins (Multivitamins W/ Minerals 15ml Liquid) 15 ml DAILY GT 04/17/19 09:00 05/12/19 08:59 05/11/19 08:15 Ondansetron HCl (Zofran) 4 mg Q6H PRN GT Nausea & Vomiting 04/16/19 17:30 05/12/19 17:29 Phenytoin 300 mg/ Sodium Chloride 55 ml @ 110 mls/hr DAILY IV 04/17/19 09:00 05/17/19 08:59 05/11/19 08:16 Polyethylene Glycol (Miralax) 17 gm BEDTIME GT 05/01/19 21:00 05/31/19 20:59 05/10/19 21:07 Primidone (Mysoline) 100 mg QHS GT 04/16/19 21:00 05/12/19 20:59 05/10/19 21:08 Sodium Phosphate (Fleet's Sodium Phosl Enema) 133 ml BIDPRN PRN RECTAL Constipation 05/01/19 18:15 1/29/20 18:14 05/01/19 23:17 Verapamil HCl (Calan) 80 mg EVERY 8 HOURS GT 04/18/19 14:45 05/16/19 14:44 05/11/19 06:01 Rayshawn Soni MD May 11, 2019 11:36
[2019-05-11 12:00] VITALS: BP 118/85
--- NOTE | 2019-05-11 12:08 | General Progress Note ---
Assessment/Plan Problem List: (1) Pneumonia ICD Codes: J18.9 - Pneumonia, unspecified organism SNOMED: 771705582 (2) Sickle cell anemia ICD Codes: D57.1 - Sickle-cell disease without crisis SNOMED: 277705889 (3) Sepsis ICD Codes: A41.9 - Sepsis, unspecified organism SNOMED: 88616164 Status: unchanged Assessment/Plan: pt diet abx psyc neuro eval cbc bmp am Subjective Constitutional: Reports: weakness Allergies: Coded Allergies: No Known Allergies (Unverified , 04/11/19) All Systems: reviewed and negative except above Subjective o2nc sleepy calm Objective Last 24 Hour Vital Signs Date Time Temp Pulse Resp B/P (MAP) Pulse Ox O2 Delivery O2 Flow Rate FiO2 05/11/19 09:00 Nasal Cannula 3.0 05/11/19 08:00 98.6 120 18 131/80 (97) 97 05/11/19 06:01 130 129/88 05/11/19 04:00 98.6 130 20 129/88 (102) 96 05/11/19 02:10 98.6 05/11/19 00:00 100.6 131 16 115/85 (95) 98 05/10/19 21:07 111 128/91 05/10/19 21:00 Nasal Cannula 3.0 05/10/19 20:25 95 Nasal Cannula 3.0 32 05/10/19 20:25 111 20 95 Nasal Cannula 3.0 32 05/10/19 20:00 98.0 130 16 128/91 (103) 98 05/10/19 16:00 97.4 135 19 121/74 (90) 97 05/10/19 14:29 130 119/95 Intake and Output 05/10/19 05/11/19 19:00 07:00 Intake Total 1140 ml 1030 ml Output Total 1100 ml 700 ml Balance 40 ml 330 ml Free Water 200 ml 200 ml IV Total 220 ml 110 ml Tube Feeding 720 ml 720 ml Output Urine Total 1100 ml 700 ml Laboratory Tests 05/11/19 04:25: White Blood Count 13.8H, Red Blood Count 4.41L, Hemoglobin 13.8L, Hematocrit 39.3L, Mean Corpuscular Volume 89, Mean Corpuscular Hemoglobin 31.3H, Mean Corpuscular Hemoglobin Concent 35.2, Red Cell Distribution Width 17.0H, Platelet Count 390, Mean Platelet Volume 5.9L, Neutrophils (%) (Auto) 76.1H, Lymphocytes (%) (Auto) 14.9L, Monocytes (%) (Auto) 7.5, Eosinophils (%) (Auto) 0.2, Basophils (%) (Auto) 1.2, Sodium Level 155H, Potassium Level 3.7, Chloride Level 113H, Carbon Dioxide Level 30, Anion Gap 12, Blood Urea Nitrogen 22H, Creatinine 0.8, Estimat Glomerular Filtration Rate > 60, Glucose Level 123H, Calcium Level 10.0 Height (Feet): 5 Height (Inches): 5.00 Weight (Pounds): 123 General Appearance: lethargic EENT: normal ENT inspection Neck: normal alignment Cardiovascular: normal peripheral pulses, normal rate, regular rhythm Respiratory/Chest: chest wall non-tender, lungs clear, normal breath sounds Abdomen: normal bowel sounds, non tender, soft Extremities: normal inspection Edema: no edema noted Arm (L), no edema noted Arm (R), no edema noted Leg (L), no edema noted Leg (R), no edema noted Pedal (L), no edema noted Pedal (R), no edema noted Generalized Neurologic: motor weakness Skin: normal pigmentation, warm/dry Marito Ortega DO May 11, 2019 12:08
[2019-05-11] MEDS: Micafungin 100 MG in D5W 110 ML IVPB SCH (12:30)
--- NOTE | 2019-05-11 12:39 | General Progress Note ---
Assessment/Plan Status: unchanged Assessment/Plan: 1. History of CVA. 2. Dysphagia with G-tube. 3. Hypertension. 4. GERD. 5. Epilepsy. 6. Peptic ulcer disease. 7.constipation 8. Elevated LFTS 9. fungemia laxative abd us>>> reviewed>>> gallstones repeat labs repeat LFTS >> improving stable H&H hepatitis panel GTF GT care abx per ID cardiology note appreciated Subjective Allergies: Coded Allergies: No Known Allergies (Unverified , 04/11/19) Objective Last 24 Hour Vital Signs Date Time Temp Pulse Resp B/P (MAP) Pulse Ox O2 Delivery O2 Flow Rate FiO2 05/11/19 09:00 Nasal Cannula 3.0 05/11/19 08:00 98.6 120 18 131/80 (97) 97 05/11/19 06:01 130 129/88 05/11/19 04:00 98.6 130 20 129/88 (102) 96 05/11/19 02:10 98.6 05/11/19 00:00 100.6 131 16 115/85 (95) 98 05/10/19 21:07 111 128/91 05/10/19 21:00 Nasal Cannula 3.0 05/10/19 20:25 95 Nasal Cannula 3.0 32 05/10/19 20:25 111 20 95 Nasal Cannula 3.0 32 05/10/19 20:00 98.0 130 16 128/91 (103) 98 05/10/19 16:00 97.4 135 19 121/74 (90) 97 05/10/19 14:29 130 119/95 Intake and Output 05/10/19 05/11/19 19:00 07:00 Intake Total 1140 ml 1030 ml Output Total 1100 ml 700 ml Balance 40 ml 330 ml Free Water 200 ml 200 ml IV Total 220 ml 110 ml Tube Feeding 720 ml 720 ml Output Urine Total 1100 ml 700 ml Laboratory Tests 05/11/19 04:25: White Blood Count 13.8H, Red Blood Count 4.41L, Hemoglobin 13.8L, Hematocrit 39.3L, Mean Corpuscular Volume 89, Mean Corpuscular Hemoglobin 31.3H, Mean Corpuscular Hemoglobin Concent 35.2, Red Cell Distribution Width 17.0H, Platelet Count 390, Mean Platelet Volume 5.9L, Neutrophils (%) (Auto) 76.1H, Lymphocytes (%) (Auto) 14.9L, Monocytes (%) (Auto) 7.5, Eosinophils (%) (Auto) 0.2, Basophils (%) (Auto) 1.2, Sodium Level 155H, Potassium Level 3.7, Chloride Level 113H, Carbon Dioxide Level 30, Anion Gap 12, Blood Urea Nitrogen 22H, Creatinine 0.8, Estimat Glomerular Filtration Rate > 60, Glucose Level 123H, Calcium Level 10.0 Height (Feet): 5 Height (Inches): 5.00 Weight (Pounds): 123 General Appearance: alert EENT: normal ENT inspection Neck: supple Cardiovascular: normal rate Respiratory/Chest: lungs clear Abdomen: normal bowel sounds, non tender, soft Extremities: non-tender Faizan Esqueda MD May 11, 2019 12:39
--- NOTE | 2019-05-11 14:01 | NUR ---
NURSE NOTES: Patient seen by Camacho Pennington. Sodium 155 today. received order D5w 1000@50/hr. order noted and carried out.
--- NOTE | 2019-05-11 14:14 | Pulmonology Progress Note ---
Assessment/Plan Problems: (1) Fungemia (2) Sepsis (3) Nosocomial pneumonia (4) Chronic tachycardia (5) Epilepsy (6) Hereditary cerebellar ataxia (7) Cavitary lung disease (8) LW-Dyncujt-Yzeqmy disease (9) Feeding by G-tube Assessment/Plan no change, looks more comfortable still tachy at 120 Yeast in Blood cultures, last cultures are negative sputum has pseudomonas, pansensitive iv abx symptomatic treatment feeding by Gtube aspiration precaution Verapamil for chronic tachycardia, double the dose since, heart rate is low 100 monitor heart rate prbc prn Hem< 8 dvt prophylaxis. reviewed echo: normal EF Subjective ROS Limited/Unobtainable: No Constitutional: Reports: no symptoms HEENT: Repors: no symptoms Respiratory: Reports: no symptoms Allergies: Coded Allergies: No Known Allergies (Unverified , 04/11/19) Objective Last 24 Hour Vital Signs Date Time Temp Pulse Resp B/P (MAP) Pulse Ox O2 Delivery O2 Flow Rate FiO2 05/11/19 13:42 130 108/80 05/11/19 12:00 97.3 128 18 118/85 (96) 96 05/11/19 09:00 Nasal Cannula 3.0 05/11/19 08:00 98.6 120 18 131/80 (97) 97 05/11/19 06:01 130 129/88 05/11/19 04:00 98.6 130 20 129/88 (102) 96 05/11/19 02:10 98.6 05/11/19 00:00 100.6 131 16 115/85 (95) 98 05/10/19 21:07 111 128/91 05/10/19 21:00 Nasal Cannula 3.0 05/10/19 20:25 95 Nasal Cannula 3.0 32 05/10/19 20:25 111 20 95 Nasal Cannula 3.0 32 05/10/19 20:00 98.0 130 16 128/91 (103) 98 05/10/19 16:00 97.4 135 19 121/74 (90) 97 05/10/19 14:29 130 119/95 Intake and Output 05/10/19 05/11/19 19:00 07:00 Intake Total 1140 ml 1030 ml Output Total 1100 ml 700 ml Balance 40 ml 330 ml Free Water 200 ml 200 ml IV Total 220 ml 110 ml Tube Feeding 720 ml 720 ml Output Urine Total 1100 ml 700 ml Objective General Appearance: no acute distress HEENT: normocephalic, anicteric Respiratory/Chest: chest wall non-tender, rhonchi Cardiovascular: normal peripheral pulses, normal rate, regular rhythm Abdomen: normal bowel sounds, soft, non tender Genitourinary: normal external genitalia Extremities: no cyanosis Laboratory Tests 05/11/19 04:25: White Blood Count 13.8H, Red Blood Count 4.41L, Hemoglobin 13.8L, Hematocrit 39.3L, Mean Corpuscular Volume 89, Mean Corpuscular Hemoglobin 31.3H, Mean Corpuscular Hemoglobin Concent 35.2, Red Cell Distribution Width 17.0H, Platelet Count 390, Mean Platelet Volume 5.9L, Neutrophils (%) (Auto) 76.1H, Lymphocytes (%) (Auto) 14.9L, Monocytes (%) (Auto) 7.5, Eosinophils (%) (Auto) 0.2, Basophils (%) (Auto) 1.2, Sodium Level 155H, Potassium Level 3.7, Chloride Level 113H, Carbon Dioxide Level 30, Anion Gap 12, Blood Urea Nitrogen 22H, Creatinine 0.8, Estimat Glomerular Filtration Rate > 60, Glucose Level 123H, Calcium Level 10.0 Current Medications Medications (Trade) Dose Ordered Sig/Kory Route PRN Reason Start Time Stop Time Status Last Admin Dose Admin Acetaminophen (Tylenol) 650 mg Q6H PRN GT Mild Pain/Temp > 100.5 04/16/19 17:30 05/11/19 17:29 05/11/19 01:40 Albuterol/ Ipratropium (Albuterol/ Ipratropium) 3 ml Q4H PRN HHN Shortness of Breath 05/08/19 12:45 05/13/19 12:44 05/08/19 17:49 Dextrose 1,000 ml @ 50 mls/hr Q20H IV 05/11/19 14:00 06/10/19 13:59 05/11/19 14:11 Dextrose (Dextrose 50%) 25 ml Q30M PRN IV Hypoglycemia 04/16/19 17:30 05/13/19 16:29 05/04/19 04:47 Dextrose (Dextrose 50%) 50 ml Q30M PRN IV Hypoglycemia 04/16/19 17:30 05/13/19 16:29 Docusate Sodium (Colace) 100 mg TWICE A DAY GT 05/01/19 18:00 05/31/19 17:59 05/11/19 08:14 Donepezil HCl (Aricept) 10 mg DAILY GT 04/17/19 09:00 05/12/19 08:59 05/11/19 08:14 Heparin Sodium (Porcine) (Heparin 5000 units/ml) 5,000 units EVERY 12 HOURS SUBQ 04/16/19 21:00 05/12/19 10:59 05/11/19 08:16 Insulin Aspart (NovoLOG) Q6HR SUBQ 04/16/19 18:00 05/13/19 17:59 05/11/19 12:30 Lactobacillus Acidophilus (Culturelle) 1 tab DAILY GT 04/17/19 09:00 05/12/19 08:59 05/11/19 08:14 Lactulose (Cephulac) 10 gm THREE TIMES A DAY GT 05/01/19 13:00 05/31/19 12:59 05/11/19 12:29 Lansoprazole (Prevacid) 30 mg DAILY GT 04/17/19 09:00 05/12/19 08:59 05/11/19 08:15 Lorazepam (Ativan 2mg/ml 1ml) 1 mg Q4H PRN IV for Restlessness 05/05/19 16:30 05/12/19 16:29 05/05/19 16:36 Meropenem 1 gm/ Sodium Chloride 55 ml @ 110 mls/hr Q8HR IVPB 05/10/19 14:00 05/15/19 13:59 05/11/19 14:11 Micafungin Sodium 100 mg/Dextrose 110 ml @ 110 mls/hr Q24H IVPB 04/30/19 12:00 05/16/19 11:59 05/11/19 12:30 Morphine Sulfate (Morphine Sulfate) 4 mg Q4H PRN IVP Moderate to severe Pain 05/10/19 09:15 05/17/19 09:14 Multivitamins (Multivitamins W/ Minerals 15ml Liquid) 15 ml DAILY GT 04/17/19 09:00 05/12/19 08:59 05/11/19 08:15 Ondansetron HCl (Zofran) 4 mg Q6H PRN GT Nausea & Vomiting 12/15/19 17:30 05/12/19 17:29 Phenytoin 300 mg/ Sodium Chloride 55 ml @ 110 mls/hr DAILY IV 04/17/19 09:00 05/17/19 08:59 05/11/19 08:16 Polyethylene Glycol (Miralax) 17 gm BEDTIME GT 05/01/19 21:00 05/31/19 20:59 05/10/19 21:07 Primidone (Mysoline) 100 mg QHS GT 04/16/19 21:00 05/12/19 20:59 05/10/19 21:08 Sodium Phosphate (Fleet's Sodium Phosl Enema) 133 ml BIDPRN PRN RECTAL Constipation 05/01/19 18:15 05/31/19 18:14 05/01/19 23:17 Verapamil HCl (Calan) 80 mg EVERY 8 HOURS GT 04/18/19 14:45 05/16/19 14:44 05/11/19 06:01 Carlos Sauer MD May 11, 2019 14:14
[2019-05-11 16:00] VITALS: BP 111/79
--- NOTE | 2019-05-11 17:30 | Progress Note ---
DATE: 05/11/2019 SUBJECTIVE: This is a 43-year-old male patient with sepsis. He has some confusion, some disorganized thought process, and decline in cognition below his baseline. That is why, he does require inpatient treatment at this time. He has got feelings of helplessness, hopelessness, low energy, poor appetite, loss of interest in activity. DIAGNOSIS: Paranoid schizophrenia acute exacerbation. PLAN: My plan for this patient is to continue to treat him with medications to stabilize his mood to help clear his disorganized thought processes. His cognition has declined below baseline. A 20 minutes of behavioral management. Chart reviewed. Discussed with staff. Seen and assessed in his room. Osbaldo Bird M.D. DR: CHRISTOPHER JOB#: [id number] CC:
--- NOTE | 2019-05-11 19:02 | NUR ---
HAND-OFF: Report given to EDUAR Lnaders.
[2019-05-11 20:00] VITALS: BP 116/53
--- NOTE | 2019-05-11 20:00 | NUR ---
NURSE NOTES: Received patient asleep, opens eyes to pain, no SOB, tolerates hid g-tube feeding well.
[2019-05-11] MEDS: Miralax 17gm pkt GT SCH (21:40)
[2019-05-12] VITALS: BP 116/82
[2019-05-12 04:31] VITALS: BP 108/75
[2019-05-12] MEDS: Verapamil 80mg tab GT SCH ×3 (05:19→21:05)
[2019-05-12] MEDS: Meropenem 1 GM in NS 55 ML IVPB SCH ×3 (05:19→21:05)
[2019-05-12] MEDS: NovoLOG Insulin Flexpen SUBQ SCH ×3 (05:50→17:50)
[2019-05-12 07:21] LABS: ALANINE AMINOTRANSFERASE 101 U/L (12-78); ALBUMIN 2.5 G/DL (3.4-5.0); ALBUMIN/GLOBULIN RATIO 0.4 (1.0-2.7); ALKALINE PHOSPHATASE 96 U/L (46-116); ANION GAP 10 mmol/L (5-15); ASPARTATE AMINO TRANSFERASE 49 U/L (15-37); BILIRUBIN,TOTAL 0.7 MG/DL (0.2-1.0); BLOOD UREA NITROGEN 24 mg/dL (7-18); CALCIUM 9.7 MG/DL (8.5-10.1); CARBON DIOXIDE 30 MMOL/L (21-32); CHLORIDE 113 MMOL/L (98-107); CREATININE 0.8 MG/DL (0.55-1.30); POTASSIUM 3.8 MMOL/L (3.5-5.1); SODIUM 153 MMOL/L (136-145)
--- NOTE | 2019-05-12 07:22 | NUR ---
HAND-OFF: Written Report given to EDUAR Enrique.
[2019-05-12 07:26] LABS: HEMATOCRIT 38.7 % (42.0-52.0); HEMOGLOBIN 13.7 G/DL (14.2-18.0); MEAN CORPUSCULAR VOLUME 89 FL (80-99); PLATELET COUNT 314 K/UL (150-450); RED BLOOD COUNT 4.36 M/UL (4.70-6.10); RED CELL DISTRIBUTION WIDTH 16.8 % (11.6-14.8); WHITE BLOOD COUNT 20.6 K/UL (4.8-10.8)
[2019-05-12 07:35] LABS: PHOSPHORUS 2.9 MG/DL (2.5-4.9)
[2019-05-12 08:00] VITALS: BP 139/80
--- NOTE | 2019-05-12 08:23 | General Progress Note ---
Assessment/Plan Problem List: (1) Pneumonia ICD Codes: J18.9 - Pneumonia, unspecified organism SNOMED: 384743800 (2) Sickle cell anemia ICD Codes: D57.1 - Sickle-cell disease without crisis SNOMED: 001184595 (3) Sepsis ICD Codes: A41.9 - Sepsis, unspecified organism SNOMED: 80411376 Status: unchanged Assessment/Plan: pt diet abx psyc neuro eval cbc bmp am Subjective Constitutional: Reports: weakness Allergies: Coded Allergies: No Known Allergies (Unverified , 04/11/19) All Systems: reviewed and negative except above Subjective o2nc sleepy calm Objective Last 24 Hour Vital Signs Date Time Temp Pulse Resp B/P (MAP) Pulse Ox O2 Delivery O2 Flow Rate FiO2 05/12/19 05:19 131 108/75 05/12/19 04:31 100.1 131 20 108/75 (86) 100 05/12/19 00:00 100.0 139 21 116/82 (93) 95 05/11/19 21:39 144 116/53 05/11/19 21:00 Nasal Cannula 3.0 05/11/19 20:00 98.6 144 21 116/53 (74) 95 05/11/19 19:34 95 Nasal Cannula 2.0 28 05/11/19 19:34 129 22 95 Nasal Cannula 2.0 28 05/11/19 16:00 97.8 128 22 111/79 (90) 98 05/11/19 13:42 130 108/80 05/11/19 12:00 97.3 128 18 118/85 (96) 96 05/11/19 09:00 Nasal Cannula 3.0 Intake and Output 05/11/19 05/12/19 19:00 07:00 Intake Total 1500 ml 1555 ml Output Total 800 ml Balance 700 ml 1555 ml Free Water 200 ml 200 ml IV Total 580 ml 635 ml Tube Feeding 720 ml 720 ml Output Urine Total 800 ml Laboratory Tests 05/12/19 04:43: White Blood Count 20.6H, Red Blood Count 4.36L, Hemoglobin 13.7L, Hematocrit 38.7L, Mean Corpuscular Volume 89, Mean Corpuscular Hemoglobin 31.4H, Mean Corpuscular Hemoglobin Concent 35.4, Red Cell Distribution Width 16.8H, Platelet Count 314, Mean Platelet Volume 6.3L, Neutrophils (%) (Auto) , Lymphocytes (%) (Auto) , Monocytes (%) (Auto) , Eosinophils (%) (Auto) , Basophils (%) (Auto) , Neutrophils % (Manual) [Pending], Lymphocytes % (Manual) [Pending], Platelet Estimate [Pending], Platelet Morphology [Pending], Erythrocyte Sedimentation Rate [Pending], Sodium Level 153H, Potassium Level 3.8 , Chloride Level 113H, Carbon Dioxide Level 30, Anion Gap 10, Blood Urea Nitrogen 24H, Creatinine 0.8, Estimat Glomerular Filtration Rate > 60, Glucose Level 108H, Calcium Level 9.7, Phosphorus Level 2.9, Magnesium Level 2.3, Total Bilirubin 0.7, Aspartate Amino Transf (AST/SGOT) 49H, Alanine Aminotransferase ( ALT/SGPT) 101H, Alkaline Phosphatase 96, C-Reactive Protein, Quantitative 9.2H, Total Protein 8.9H, Albumin 2.5L, Globulin 6.4, Albumin/Globulin Ratio 0.4L Height (Feet): 5 Height (Inches): 5.00 Weight (Pounds): 123 General Appearance: lethargic EENT: normal ENT inspection Neck: normal alignment Cardiovascular: normal peripheral pulses, normal rate, regular rhythm Respiratory/Chest: chest wall non-tender, lungs clear, normal breath sounds Abdomen: normal bowel sounds, non tender, soft Extremities: normal inspection Edema: no edema noted Arm (L), no edema noted Arm (R), no edema noted Leg (L), no edema noted Leg (R), no edema noted Pedal (L), no edema noted Pedal (R), no edema noted Generalized Neurologic: motor weakness Skin: normal pigmentation, warm/dry Marito Ortega DO May 12, 2019 08:22
[2019-05-12] MEDS: Docusate 100mg/10ml Liq GT SCH ×2 (08:55→17:50)
[2019-05-12] MEDS: NS IV SCH (08:55)
[2019-05-12] MEDS: Lactulose 10gm/15ml UDC GT SCH ×3 (08:55→17:50)
[2019-05-12] MEDS: PHENYTOIN IV SCH (08:55)
[2019-05-12] MEDS: Heparin 5000 units/ml inj SUBQ SCH (08:56)
--- NOTE | 2019-05-12 09:01 | General Progress Note ---
Assessment/Plan Assessment/Plan: (1) Sacral decubitus ulcer (2) Dementia (3) Encephalopathy (4) Sepsis (5) Cerebral Ataxia (6) Sickle cell disease Pt will be continued on Morphine D/w Dr. Palomino and he concurred. Subjective Date patient seen: May 12, 2019 Time patient seen: 08:00 - am ROS Limited/Unobtainable: Yes Allergies: Coded Allergies: No Known Allergies (Unverified , 04/11/19) Subjective Patient is in bed no signs of pain or distress. Morphine has not been given to patient in the last 24hrs. Objective Last 24 Hour Vital Signs Date Time Temp Pulse Resp B/P (MAP) Pulse Ox O2 Delivery O2 Flow Rate FiO2 05/12/19 08:00 98.3 80 18 139/80 (99) 99 05/12/19 05:19 131 108/75 05/12/19 04:31 100.1 131 20 108/75 (86) 100 05/12/19 00:00 100.0 139 21 116/82 (93) 95 05/11/19 21:39 144 116/53 05/11/19 21:00 Nasal Cannula 3.0 05/11/19 20:00 98.6 144 21 116/53 (74) 95 05/11/19 19:34 95 Nasal Cannula 2.0 28 05/11/19 19:34 129 22 95 Nasal Cannula 2.0 28 05/11/19 16:00 97.8 128 22 111/79 (90) 98 05/11/19 13:42 130 108/80 05/11/19 12:00 97.3 128 18 118/85 (96) 96 Intake and Output 05/11/19 05/12/19 19:00 07:00 Intake Total 1500 ml 1555 ml Output Total 800 ml Balance 700 ml 1555 ml Free Water 200 ml 200 ml IV Total 580 ml 635 ml Tube Feeding 720 ml 720 ml Output Urine Total 800 ml Laboratory Tests 05/12/19 04:43: White Blood Count 20.6H, Red Blood Count 4.36L, Hemoglobin 13.7L, Hematocrit 38.7L, Mean Corpuscular Volume 89, Mean Corpuscular Hemoglobin 31.4H, Mean Corpuscular Hemoglobin Concent 35.4, Red Cell Distribution Width 16.8H, Platelet Count 314, Mean Platelet Volume 6.3L, Neutrophils (%) (Auto) , Lymphocytes (%) (Auto) , Monocytes (%) (Auto) , Eosinophils (%) (Auto) , Basophils (%) (Auto) , Neutrophils % (Manual) [Pending], Lymphocytes % (Manual) [Pending], Platelet Estimate [Pending], Platelet Morphology [Pending], Erythrocyte Sedimentation Rate [Pending], Sodium Level 153H, Potassium Level 3.8 , Chloride Level 113H, Carbon Dioxide Level 30, Anion Gap 10, Blood Urea Nitrogen 24H, Creatinine 0.8, Estimat Glomerular Filtration Rate > 60, Glucose Level 108H, Calcium Level 9.7, Phosphorus Level 2.9, Magnesium Level 2.3, Total Bilirubin 0.7, Aspartate Amino Transf (AST/SGOT) 49H, Alanine Aminotransferase ( ALT/SGPT) 101H, Alkaline Phosphatase 96, C-Reactive Protein, Quantitative 9.2H, Total Protein 8.9H, Albumin 2.5L, Globulin 6.4, Albumin/Globulin Ratio 0.4L Height (Feet): 5 Height (Inches): 5.00 Weight (Pounds): 123 Objective General Appearance: no apparent distress EENT: normal ENT inspection Neck: non-tender Cardiovascular: normal rate Respiratory/Chest: decreased breath sounds Abdomen: other - Gtube noted Extremities: swelling Edema: trace edema Neurologic: responsive Skin: warm/dry Henrry Allison May 12, 2019 09:01
--- NOTE | 2019-05-12 09:04 | General Progress Note ---
Assessment/Plan Assessment/Plan: 1. History of CVA. 2. Dysphagia with G-tube. 3. Hypertension. 4. GERD. 5. Epilepsy. 6. Peptic ulcer disease. 7.constipation 8. Elevated LFTS 9. fungemia laxative abd us>>> reviewed>>> gallstones repeat labs repeat LFTS >> improving stable H&H hepatitis panel GTF GT care abx per ID cardiology note appreciated Subjective ROS Limited/Unobtainable: No Allergies: Coded Allergies: No Known Allergies (Unverified , 04/11/19) Objective Last 24 Hour Vital Signs Date Time Temp Pulse Resp B/P (MAP) Pulse Ox O2 Delivery O2 Flow Rate FiO2 05/12/19 08:00 98.3 80 18 139/80 (99) 99 05/12/19 05:19 131 108/75 05/12/19 04:31 100.1 131 20 108/75 (86) 100 05/12/19 00:00 100.0 139 21 116/82 (93) 95 05/11/19 21:39 144 116/53 05/11/19 21:00 Nasal Cannula 3.0 05/11/19 20:00 98.6 144 21 116/53 (74) 95 05/11/19 19:34 95 Nasal Cannula 2.0 28 05/11/19 19:34 129 22 95 Nasal Cannula 2.0 28 05/11/19 16:00 97.8 128 22 111/79 (90) 98 05/11/19 13:42 130 108/80 05/11/19 12:00 97.3 128 18 118/85 (96) 96 Intake and Output 05/11/19 05/12/19 19:00 07:00 Intake Total 1500 ml 1555 ml Output Total 800 ml Balance 700 ml 1555 ml Free Water 200 ml 200 ml IV Total 580 ml 635 ml Tube Feeding 720 ml 720 ml Output Urine Total 800 ml Laboratory Tests 05/12/19 04:43: White Blood Count 20.6H, Red Blood Count 4.36L, Hemoglobin 13.7L, Hematocrit 38.7L, Mean Corpuscular Volume 89, Mean Corpuscular Hemoglobin 31.4H, Mean Corpuscular Hemoglobin Concent 35.4, Red Cell Distribution Width 16.8H, Platelet Count 314, Mean Platelet Volume 6.3L, Neutrophils (%) (Auto) , Lymphocytes (%) (Auto) , Monocytes (%) (Auto) , Eosinophils (%) (Auto) , Basophils (%) (Auto) , Neutrophils % (Manual) [Pending], Lymphocytes % (Manual) [Pending], Platelet Estimate [Pending], Platelet Morphology [Pending], Erythrocyte Sedimentation Rate [Pending], Sodium Level 153H, Potassium Level 3.8 , Chloride Level 113H, Carbon Dioxide Level 30, Anion Gap 10, Blood Urea Nitrogen 24H, Creatinine 0.8, Estimat Glomerular Filtration Rate > 60, Glucose Level 108H, Calcium Level 9.7, Phosphorus Level 2.9, Magnesium Level 2.3, Total Bilirubin 0.7, Aspartate Amino Transf (AST/SGOT) 49H, Alanine Aminotransferase ( ALT/SGPT) 101H, Alkaline Phosphatase 96, C-Reactive Protein, Quantitative 9.2H, Total Protein 8.9H, Albumin 2.5L, Globulin 6.4, Albumin/Globulin Ratio 0.4L Height (Feet): 5 Height (Inches): 5.00 Weight (Pounds): 123 General Appearance: alert EENT: normal ENT inspection Neck: supple Cardiovascular: normal rate Respiratory/Chest: decreased breath sounds Abdomen: normal bowel sounds, non tender, soft Extremities: non-tender Faizan Esqueda MD May 12, 2019 09:04
[2019-05-12 12:00] VITALS: BP 133/79
--- NOTE | 2019-05-12 12:07 | Cardiac Electrophysiology PN ---
Assessment/Plan Assessment/Plan 1. Sinus tachycardia. Better. No fib or SVT. Echo showed ejection fraction of 65%. Continue verapamil 80 mg every 8 hours through G-tube. 2. Hypertension, stable on verapamil. 3. Fungemia. Awaiting stabilization for GAGAN by Dr. Abad 4. Dysphagia, status post PEG placement. 5. History of CVA. 6. Epilepsy. 7. Peptic ulcer disease. 8. Elevated liver function tests. SHIRLEY RN Subjective Subjective No new events.On iv abx for pulmonary stabilization pre GAGAN Objective Last 24 Hour Vital Signs Date Time Temp Pulse Resp B/P (MAP) Pulse Ox O2 Delivery O2 Flow Rate FiO2 05/12/19 09:00 Nasal Cannula 3.0 05/12/19 08:00 98.3 80 18 139/80 (99) 99 05/12/19 05:19 131 108/75 05/12/19 04:31 100.1 131 20 108/75 (86) 100 05/12/19 00:00 100.0 139 21 116/82 (93) 95 05/11/19 21:39 144 116/53 05/11/19 21:00 Nasal Cannula 3.0 05/11/19 20:00 98.6 144 21 116/53 (74) 95 05/11/19 19:34 95 Nasal Cannula 2.0 28 05/11/19 19:34 129 22 95 Nasal Cannula 2.0 28 05/11/19 16:00 97.8 128 22 111/79 (90) 98 05/11/19 13:42 130 108/80 Intake and Output 05/11/19 05/12/19 19:00 07:00 Intake Total 1500 ml 1555 ml Output Total 800 ml Balance 700 ml 1555 ml Free Water 200 ml 200 ml IV Total 580 ml 635 ml Tube Feeding 720 ml 720 ml Output Urine Total 800 ml Laboratory Tests Test 05/12/19 04:43 White Blood Count 20.6 K/UL (4.8-10.8) H Red Blood Count 4.36 M/UL (4.70-6.10) L Hemoglobin 13.7 G/DL (14.2-18.0) L Hematocrit 38.7 % (42.0-52.0) L Mean Corpuscular Volume 89 FL (80-99) Mean Corpuscular Hemoglobin 31.4 PG (27.0-31.0) H Mean Corpuscular Hemoglobin Concent 35.4 G/DL (32.0-36.0) Red Cell Distribution Width 16.8 % (11.6-14.8) H Platelet Count 314 K/UL (150-450) Mean Platelet Volume 6.3 FL (6.5-10.1) L Neutrophils (%) (Auto) % (45.0-75.0) Lymphocytes (%) (Auto) % (20.0-45.0) Monocytes (%) (Auto) % (1.0-10.0) Eosinophils (%) (Auto) % (0.0-3.0) Basophils (%) (Auto) % (0.0-2.0) Differential Total Cells Counted 100 Neutrophils % (Manual) 74 % (45-75) Lymphocytes % (Manual) 15 % (20-45) L Monocytes % (Manual) 11 % (1-10) H Eosinophils % (Manual) 0 % (0-3) Basophils % (Manual) 0 % (0-2) Band Neutrophils 0 % (0-8) Platelet Estimate Adequate Platelet Morphology Normal Polychromasia 1+ Anisocytosis 1+ Erythrocyte Sedimentation Rate 61 MM/HR (0-15) H Sodium Level 153 MMOL/L (136-145) H Potassium Level 3.8 MMOL/L (3.5-5.1) Chloride Level 113 MMOL/L (98-107) H Carbon Dioxide Level 30 MMOL/L (21-32) Anion Gap 10 mmol/L (5-15) Blood Urea Nitrogen 24 mg/dL (7-18) H Creatinine 0.8 MG/DL (0.55-1.30) Estimat Glomerular Filtration Rate > 60 mL/min (>60) Glucose Level 108 MG/DL (74-106) H Calcium Level 9.7 MG/DL (8.5-10.1) Phosphorus Level 2.9 MG/DL (2.5-4.9) Magnesium Level 2.3 MG/DL (1.8-2.4) Total Bilirubin 0.7 MG/DL (0.2-1.0) Aspartate Amino Transf (AST/SGOT) 49 U/L (15-37) H Alanine Aminotransferase (ALT/SGPT) 101 U/L (12-78) H Alkaline Phosphatase 96 U/L (46-116) C-Reactive Protein, Quantitative 9.2 mg/dL (0.00-0.90) H Total Protein 8.9 G/DL (6.4-8.2) H Albumin 2.5 G/DL (3.4-5.0) L Globulin 6.4 g/dL Albumin/Globulin Ratio 0.4 (1.0-2.7) L Objective HEAD AND NECK: No JVD. LUNGS: Coarse rhonchi. CARDIOVASCULAR: Regular S1 and S2 with no gallop or murmur. ABDOMEN: Status post G-tube. EXTREMITIES: No pitting edema. Kyree Soto MD May 12, 2019 12:07
--- NOTE | 2019-05-12 12:09 | Infectious Diseases Prog Note ---
Assessment/Plan Assessment/Plan Assessment: Sepsis Fungemia- r/o endocardiis Blood Cx 04/22/19 - C. alb Blood Cx 04/25/19 2/2 C. albicns Bcx 04/28 p TTE 04/12/19 - No Vegitations PNA - 05/06/19 Sp Cx P.a. - 04/22/19 Sp Cx P.a. and acenetobacter -04/16 CXR: Left greater than right bibasilar opacities may represent atelectasis versus pneumonia. Findings are decreased compared to prior exam. -CXR: Left basilar atelectasis and possible consolidation -sp cx PsA (ramirez S) -influenza sc neg -u/a neg Fever; SP Leukocytosis; decreasing Gram positive bacteremia- contaminant -04/11 Bcx 05/06 CONS; 04/12 Bcx NTD HTN dysphagia s/p GT cerebellar ataxia seizure disorder Alzheimer's dementia SNF resident Plan: - Need to improve respiratory status in order to have GAGAN done - Get GAGAN to r/o Endocarditis - Meropenem #3 for the P.a. in the sputum - Continue Micafungin #17 - f/u HIV test - 05/07/19 SP Zosyn #12 and Bactrim # - 04/24 SP Meropenem #3 and Vancomycin #3 - 04/22/19 SP Zosyn #3 -04/19 SP Cefepime #9 for PsA PNA -04/18 SP Azithromycin #7/7 -04/16 SP IV Vancomycin #6 -04/11 SP Ceftriaxone x1 -Monitor CBC/CMP, temperatures -GT care -aspiration precautions -CBC, CMP am -Cdiff if diarrhea Thank you for consulting [facility]. Will continue to follow along with you. Subjective Allergies: Coded Allergies: No Known Allergies (Unverified , 04/11/19) Subjective Afebrile WBCs up to 20 Pt still on NC 3L Objective Vital Signs Last 24 Hour Vital Signs Date Time Temp Pulse Resp B/P (MAP) Pulse Ox O2 Delivery O2 Flow Rate FiO2 05/12/19 09:00 Nasal Cannula 3.0 05/12/19 08:00 98.3 80 18 139/80 (99) 99 05/12/19 05:19 131 108/75 05/12/19 04:31 100.1 131 20 108/75 (86) 100 05/12/19 00:00 100.0 139 21 116/82 (93) 95 05/11/19 21:39 144 116/53 05/11/19 21:00 Nasal Cannula 3.0 05/11/19 20:00 98.6 144 21 116/53 (74) 95 05/11/19 19:34 95 Nasal Cannula 2.0 28 05/11/19 19:34 129 22 95 Nasal Cannula 2.0 28 05/11/19 16:00 97.8 128 22 111/79 (90) 98 05/11/19 13:42 130 108/80 Height (Feet): 5 Height (Inches): 5.00 Weight (Pounds): 123 Objective GENERAL: NAD on 3L NC HEENT: NCAT, MMM, EOMI CARDIOVASCULAR: RRR, S1,S2 LUNGS: Coarse B/L, No W Laboratory Tests Test 05/12/19 04:43 White Blood Count 20.6 K/UL (4.8-10.8) H Red Blood Count 4.36 M/UL (4.70-6.10) L Hemoglobin 13.7 G/DL (14.2-18.0) L Hematocrit 38.7 % (42.0-52.0) L Mean Corpuscular Volume 89 FL (80-99) Mean Corpuscular Hemoglobin 31.4 PG (27.0-31.0) H Mean Corpuscular Hemoglobin Concent 35.4 G/DL (32.0-36.0) Red Cell Distribution Width 16.8 % (11.6-14.8) H Platelet Count 314 K/UL (150-450) Mean Platelet Volume 6.3 FL (6.5-10.1) L Neutrophils (%) (Auto) % (45.0-75.0) Lymphocytes (%) (Auto) % (20.0-45.0) Monocytes (%) (Auto) % (1.0-10.0) Eosinophils (%) (Auto) % (0.0-3.0) Basophils (%) (Auto) % (0.0-2.0) Differential Total Cells Counted 100 Neutrophils % (Manual) 74 % (45-75) Lymphocytes % (Manual) 15 % (20-45) L Monocytes % (Manual) 11 % (1-10) H Eosinophils % (Manual) 0 % (0-3) Basophils % (Manual) 0 % (0-2) Band Neutrophils 0 % (0-8) Platelet Estimate Adequate Platelet Morphology Normal Polychromasia 1+ Anisocytosis 1+ Erythrocyte Sedimentation Rate 61 MM/HR (0-15) H Sodium Level 153 MMOL/L (136-145) H Potassium Level 3.8 MMOL/L (3.5-5.1) Chloride Level 113 MMOL/L (98-107) H Carbon Dioxide Level 30 MMOL/L (21-32) Anion Gap 10 mmol/L (5-15) Blood Urea Nitrogen 24 mg/dL (7-18) H Creatinine 0.8 MG/DL (0.55-1.30) Estimat Glomerular Filtration Rate > 60 mL/min (>60) Glucose Level 108 MG/DL (74-106) H Calcium Level 9.7 MG/DL (8.5-10.1) Phosphorus Level 2.9 MG/DL (2.5-4.9) Magnesium Level 2.3 MG/DL (1.8-2.4) Total Bilirubin 0.7 MG/DL (0.2-1.0) Aspartate Amino Transf (AST/SGOT) 49 U/L (15-37) H Alanine Aminotransferase (ALT/SGPT) 101 U/L (12-78) H Alkaline Phosphatase 96 U/L (46-116) C-Reactive Protein, Quantitative 9.2 mg/dL (0.00-0.90) H Total Protein 8.9 G/DL (6.4-8.2) H Albumin 2.5 G/DL (3.4-5.0) L Globulin 6.4 g/dL Albumin/Globulin Ratio 0.4 (1.0-2.7) L Current Medications Medications (Trade) Dose Ordered Sig/Kory Route PRN Reason Start Time Stop Time Status Last Admin Dose Admin Acetaminophen (Tylenol) 650 mg Q6H PRN NG Prn Headache/Temp > 101 05/12/19 06:45 06/11/19 06:44 Albuterol/ Ipratropium (Albuterol/ Ipratropium) 3 ml Q4H PRN HHN Shortness of Breath 05/08/19 12:45 05/13/19 12:44 05/08/19 17:49 Dextrose 1,000 ml @ 50 mls/hr Q20H IV 05/11/19 14:00 06/10/19 13:59 05/12/19 08:56 Dextrose (Dextrose 50%) 25 ml Q30M PRN IV Hypoglycemia 04/16/19 17:30 05/13/19 16:29 05/04/19 04:47 Dextrose (Dextrose 50%) 50 ml Q30M PRN IV Hypoglycemia 04/16/19 17:30 05/13/19 16:29 Docusate Sodium (Colace) 100 mg TWICE A DAY GT 05/01/19 18:00 05/31/19 17:59 05/12/19 08:55 Insulin Aspart (NovoLOG) Q6HR SUBQ 04/16/19 18:00 05/13/19 17:59 05/12/19 05:50 Lactulose (Cephulac) 10 gm THREE TIMES A DAY GT 05/01/19 13:00 05/31/19 12:59 05/12/19 08:55 Lorazepam (Ativan 2mg/ml 1ml) 1 mg Q4H PRN IV for Restlessness 05/05/19 16:30 05/12/19 16:29 05/05/19 16:36 Meropenem 1 gm/ Sodium Chloride 55 ml @ 110 mls/hr Q8HR IVPB 05/10/19 14:00 05/15/19 13:59 05/12/19 05:19 Micafungin Sodium 100 mg/Dextrose 110 ml @ 110 mls/hr Q24H IVPB 04/30/19 12:00 05/16/19 11:59 05/11/19 12:30 Morphine Sulfate (Morphine Sulfate) 4 mg Q4H PRN IVP Moderate to severe Pain 05/10/19 09:15 05/17/19 09:14 Ondansetron HCl (Zofran) 4 mg Q6H PRN GT Nausea & Vomiting 04/16/19 17:30 05/12/19 17:29 Phenytoin 300 mg/ Sodium Chloride 55 ml @ 110 mls/hr DAILY IV 04/17/19 09:00 05/17/19 08:59 05/12/19 08:55 Polyethylene Glycol (Miralax) 17 gm BEDTIME GT 05/01/19 21:00 05/31/19 20:59 05/11/19 21:40 Primidone (Mysoline) 100 mg QHS GT 04/16/19 21:00 05/12/19 20:59 05/11/19 21:40 Sodium Phosphate (Fleet's Sodium Phosl Enema) 133 ml BIDPRN PRN RECTAL Constipation 05/01/19 18:15 05/31/19 18:14 05/01/19 23:17 Verapamil HCl (Calan) 80 mg EVERY 8 HOURS GT 04/18/19 14:45 05/16/19 14:44 05/11/19 06:01 Rayshawn Soni MD May 12, 2019 12:09
--- NOTE | 2019-05-12 13:36 | Consultation ---
History of Present Illness General Chief Complaint: General Complaint Present Illness Allergies: Coded Allergies: No Known Allergies (Unverified , 04/11/19) Medication History Scheduled Donepezil Hcl* (Donepezil Hcl*), 10 MG GT DAILY, (Reported) Lactobacillus Combo No.11 (Probiotic), 1 EACH GT DAILY, (Reported) Multivitamin Liquid* (Multi-Delyn*), 5 ML GT DAILY, (Reported) Pantoprazole Sodium (Protonix), 40 MG GT DAILY, (Reported) Primidone (Mysoline), 100 MG GT QHS, (Reported) Verapamil Hcl (Verapamil Hcl), 20 MG GT TID, (Reported) Scheduled PRN Ondansetron (Zofran), 4 MG GT Q6H PRN for Nausea & Vomiting, (Reported) Patient History Healthcare decision maker Resuscitation status Advanced Directive on File Physical Exam Last 24 Hour Vital Signs Date Time Temp Pulse Resp B/P (MAP) Pulse Ox O2 Delivery O2 Flow Rate FiO2 05/12/19 09:00 Nasal Cannula 3.0 05/12/19 08:00 98.3 80 18 139/80 (99) 99 05/12/19 05:19 131 108/75 05/12/19 04:31 100.1 131 20 108/75 (86) 100 05/12/19 00:00 100.0 139 21 116/82 (93) 95 05/11/19 21:39 144 116/53 05/11/19 21:00 Nasal Cannula 3.0 05/11/19 20:00 98.6 144 21 116/53 (74) 95 05/11/19 19:34 95 Nasal Cannula 2.0 28 05/11/19 19:34 129 22 95 Nasal Cannula 2.0 28 05/11/19 16:00 97.8 128 22 111/79 (90) 98 05/11/19 13:42 130 108/80 Intake and Output 05/11/19 05/12/19 19:00 07:00 Intake Total 1500 ml 1555 ml Output Total 800 ml Balance 700 ml 1555 ml Free Water 200 ml 200 ml IV Total 580 ml 635 ml Tube Feeding 720 ml 720 ml Output Urine Total 800 ml Laboratory Tests Test 05/12/19 04:43 White Blood Count 20.6 K/UL (4.8-10.8) H Red Blood Count 4.36 M/UL (4.70-6.10) L Hemoglobin 13.7 G/DL (14.2-18.0) L Hematocrit 38.7 % (42.0-52.0) L Mean Corpuscular Volume 89 FL (80-99) Mean Corpuscular Hemoglobin 31.4 PG (27.0-31.0) H Mean Corpuscular Hemoglobin Concent 35.4 G/DL (32.0-36.0) Red Cell Distribution Width 16.8 % (11.6-14.8) H Platelet Count 314 K/UL (150-450) Mean Platelet Volume 6.3 FL (6.5-10.1) L Neutrophils (%) (Auto) % (45.0-75.0) Lymphocytes (%) (Auto) % (20.0-45.0) Monocytes (%) (Auto) % (1.0-10.0) Eosinophils (%) (Auto) % (0.0-3.0) Basophils (%) (Auto) % (0.0-2.0) Differential Total Cells Counted 100 Neutrophils % (Manual) 74 % (45-75) Lymphocytes % (Manual) 15 % (20-45) L Monocytes % (Manual) 11 % (1-10) H Eosinophils % (Manual) 0 % (0-3) Basophils % (Manual) 0 % (0-2) Band Neutrophils 0 % (0-8) Platelet Estimate Adequate Platelet Morphology Normal Polychromasia 1+ Anisocytosis 1+ Erythrocyte Sedimentation Rate 61 MM/HR (0-15) H Sodium Level 153 MMOL/L (136-145) H Potassium Level 3.8 MMOL/L (3.5-5.1) Chloride Level 113 MMOL/L (98-107) H Carbon Dioxide Level 30 MMOL/L (21-32) Anion Gap 10 mmol/L (5-15) Blood Urea Nitrogen 24 mg/dL (7-18) H Creatinine 0.8 MG/DL (0.55-1.30) Estimat Glomerular Filtration Rate > 60 mL/min (>60) Glucose Level 108 MG/DL (74-106) H Calcium Level 9.7 MG/DL (8.5-10.1) Phosphorus Level 2.9 MG/DL (2.5-4.9) Magnesium Level 2.3 MG/DL (1.8-2.4) Total Bilirubin 0.7 MG/DL (0.2-1.0) Aspartate Amino Transf (AST/SGOT) 49 U/L (15-37) H Alanine Aminotransferase (ALT/SGPT) 101 U/L (12-78) H Alkaline Phosphatase 96 U/L (46-116) C-Reactive Protein, Quantitative 9.2 mg/dL (0.00-0.90) H Total Protein 8.9 G/DL (6.4-8.2) H Albumin 2.5 G/DL (3.4-5.0) L Globulin 6.4 g/dL Albumin/Globulin Ratio 0.4 (1.0-2.7) L HIV (1&2) Antibody Rapid Pending Height (Feet): 5 Height (Inches): 5.00 Weight (Pounds): 123 Medications Current Medications Medications (Trade) Dose Ordered Sig/Kory Route PRN Reason Start Time Stop Time Status Last Admin Dose Admin Acetaminophen (Tylenol) 650 mg Q6H PRN NG Prn Headache/Temp > 101 05/12/19 06:45 06/11/19 06:44 Albuterol/ Ipratropium (Albuterol/ Ipratropium) 3 ml Q4H PRN HHN Shortness of Breath 05/08/19 12:45 05/13/19 12:44 05/08/19 17:49 Dextrose 1,000 ml @ 50 mls/hr Q20H IV 05/11/19 14:00 06/10/19 13:59 05/12/19 08:56 Dextrose (Dextrose 50%) 25 ml Q30M PRN IV Hypoglycemia 04/16/19 17:30 05/13/19 16:29 05/04/19 04:47 Dextrose (Dextrose 50%) 50 ml Q30M PRN IV Hypoglycemia 04/16/19 17:30 05/13/19 16:29 Docusate Sodium (Colace) 100 mg TWICE A DAY GT 05/01/19 18:00 05/31/19 17:59 05/12/19 08:55 Insulin Aspart (NovoLOG) Q6HR SUBQ 04/16/19 18:00 05/13/19 17:59 05/12/19 12:33 Lactulose (Cephulac) 10 gm THREE TIMES A DAY GT 05/01/19 13:00 05/31/19 12:59 05/12/19 08:55 Lorazepam (Ativan 2mg/ml 1ml) 1 mg Q4H PRN IV for Restlessness 05/05/19 16:30 05/12/19 16:29 05/05/19 16:36 Meropenem 1 gm/ Sodium Chloride 55 ml @ 110 mls/hr Q8HR IVPB 05/10/19 14:00 05/15/19 13:59 05/12/19 05:19 Micafungin Sodium 100 mg/Dextrose 110 ml @ 110 mls/hr Q24H IVPB 04/30/19 12:00 05/16/19 11:59 05/11/19 12:30 Morphine Sulfate (Morphine Sulfate) 4 mg Q4H PRN IVP Moderate to severe Pain 05/10/19 09:15 05/17/19 09:14 Ondansetron HCl (Zofran) 4 mg Q6H PRN GT Nausea & Vomiting 04/16/19 17:30 05/12/19 17:29 Phenytoin 300 mg/ Sodium Chloride 55 ml @ 110 mls/hr DAILY IV 04/17/19 09:00 05/17/19 08:59 05/12/19 08:55 Polyethylene Glycol (Miralax) 17 gm BEDTIME GT 05/01/19 21:00 05/31/19 20:59 05/11/19 21:40 Primidone (Mysoline) 100 mg QHS GT 04/16/19 21:00 05/12/19 20:59 05/11/19 21:40 Sodium Phosphate (Fleet's Sodium Phosl Enema) 133 ml BIDPRN PRN RECTAL Constipation 05/01/19 18:15 05/31/19 18:14 05/01/19 23:17 Verapamil HCl (Calan) 80 mg EVERY 8 HOURS GT 04/18/19 14:45 05/16/19 14:44 05/11/19 06:01 Assessment/Plan Assessment/Plan: Hematology Consultation REFERRING PHYSICIAN: Marito Ortega REASON FOR CONSULTATION: SS anemia, LEUKOCYTOSIS worsened DOS: 05/12/2019 ID: 43-year-old gentleman with history of hypertension, seizure disorder, dementia as well as cerebellar ataxia, and dysphagia status post G- tube placement, who is a [facility] home resident, has been having recurrent fever. The patient was treated for Pseudomonas aeruginosa as well as Acinetobacter pneumonia 04/22/2019. The patient also has fungemia with blood culture on 04/22/2019 showed Meche albicans and on 04/25/201906/04 also showed Meche albicans. His blood culture om 04/28/2019 is pending. His echocardiogram on 04/12/2019, however, showed no vegetations. Had a GAGAN that was neg for vegetations, is on antifungals and abx but continues to have ongoing e/o wbc elevation, heme consulted. REVIEW OF SYSTEMS: Cannot be obtained as the patient is nonverbal. PAST MEDICAL HISTORY: As mentioned above. PAST SURGICAL HISTORY: Includes G-tube. FAMILY HISTORY: Noncontributory. SOCIAL HISTORY: He is a [facility] resident. Does not smoke or drink alcohol. PHYSICAL EXAMINATION: VITAL SIGNS: reviewed HEAD AND NECK: Showed no JVD. LUNGS: Coarse rhonchi. CARDIOVASCULAR: Regular S1 and S2 with no gallop or murmur. ABDOMEN: Status post G-tube. EXTREMITIES: No pitting edema. LABORATORY AND DIAGNOSTIC DATA: 04/26 His labs show white count of 11.5, hemoglobin 11.4, hematocrit 32.1, and platelet count of 616,000. Sodium 140, potassium 4.1, BUN of 10, creatinine of 0.6, and glucose of 56. Vanco level is 12.1. 05/12/19: wbc 21, hgb 13, plt 314k Imaging: noted ASSESSMENT AND PLAN: # Leukocytosis/elevated white blood cell count, unspecified likely related to underlying stress reaction v infection in this case with fungemia --> have reviewed peripheral smear and bandemia/neutrophilia noted --> continue antibiotics if they have been started by ID team, currently kelvin/ micafungin --> meds have been reviewed --> monitor for resolution # Sickle cell disease/anemia --> needs to be confirmed that actually has sickle cell --> hgb electrophoresis ordered --> smear reviewed # Hyperproteinmia -- also persistent --> spep to take several days # Tachycardia of unclear nature. There is no clear documentation of atrial fib or supraventricular tachycardia. His echo showed ejection fraction of 65%. --> continue on verapamil 80 mg every 8 hours through G-tube. --> per cards # Hypertension, stable on verapamil. --> as per cards, Dr. Soto # Multiple positive blood cultures for fungi. --> as per id --> meds noted # Dysphagia, status post PEG placement. # History of CVA. # Epilepsy. # Peptic ulcer disease. # Elevated liver function tests The timing of this note does not necessarily reflect the time of the patient was seen. Greatly appreciate consultation. Mitch Pinzon MD May 12, 2019 13:36
[2019-05-12] MEDS: Micafungin 100 MG in D5W 110 ML IVPB SCH (13:47)
--- NOTE | 2019-05-12 14:16 | Pulmonology Progress Note ---
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 reviewed echo: normal EF Subjective ROS Limited/Unobtainable: No Constitutional: Reports: no symptoms HEENT: Repors: no symptoms Respiratory: Reports: no symptoms Allergies: Coded Allergies: No Known Allergies (Unverified , 04/11/19) Objective Last 24 Hour Vital Signs Date Time Temp Pulse Resp B/P (MAP) Pulse Ox O2 Delivery O2 Flow Rate FiO2 05/12/19 13:47 86 133/79 05/12/19 12:00 98.8 86 19 133/79 (97) 98 05/12/19 09:00 Nasal Cannula 3.0 05/12/19 08:00 98.3 80 18 139/80 (99) 99 05/12/19 05:19 131 108/75 05/12/19 04:31 100.1 131 20 108/75 (86) 100 05/12/19 00:00 100.0 139 21 116/82 (93) 95 05/11/19 21:39 144 116/53 05/11/19 21:00 Nasal Cannula 3.0 05/11/19 20:00 98.6 144 21 116/53 (74) 95 05/11/19 19:34 95 Nasal Cannula 2.0 28 05/11/19 19:34 129 22 95 Nasal Cannula 2.0 28 05/11/19 16:00 97.8 128 22 111/79 (90) 98 Intake and Output 05/11/19 05/12/19 19:00 07:00 Intake Total 1500 ml 1555 ml Output Total 800 ml Balance 700 ml 1555 ml Free Water 200 ml 200 ml IV Total 580 ml 635 ml Tube Feeding 720 ml 720 ml Output Urine Total 800 ml Objective General Appearance: no acute distress HEENT: normocephalic, anicteric Respiratory/Chest: chest wall non-tender, rhonchi Cardiovascular: normal peripheral pulses, normal rate, regular rhythm Abdomen: normal bowel sounds, soft, non tender Genitourinary: normal external genitalia Extremities: no cyanosis Laboratory Tests 05/12/19 04:43: White Blood Count 20.6H, Red Blood Count 4.36L, Hemoglobin 13.7L, Hematocrit 38.7L, Mean Corpuscular Volume 89, Mean Corpuscular Hemoglobin 31.4H, Mean Corpuscular Hemoglobin Concent 35.4, Red Cell Distribution Width 16.8H, Platelet Count 314, Mean Platelet Volume 6.3L, Neutrophils (%) (Auto) , Lymphocytes (%) (Auto) , Monocytes (%) (Auto) , Eosinophils (%) (Auto) , Basophils (%) (Auto) , Differential Total Cells Counted 100, Neutrophils % ( Manual) 74, Lymphocytes % (Manual) 15L, Monocytes % (Manual) 11H, Eosinophils % (Manual) 0, Basophils % (Manual) 0, Band Neutrophils 0, Platelet Estimate Adequate, Platelet Morphology Normal, Polychromasia 1+, Anisocytosis 1+, Erythrocyte Sedimentation Rate 61H, Hemoglobin A [Pending], Hemoglobin A2 [ Pending], Hemoglobin C [Pending], Hemoglobin F () [Pending], Hemoglobin S [ Pending], Variant Hemoglobin [Pending], Hemoglobin Electrophoresis Interp [ Pending], Hemoglobin Interpretation [Pending], Hemoglobin Solubility [Pending], Sodium Level 153H, Potassium Level 3.8, Chloride Level 113H, Carbon Dioxide Level 30, Anion Gap 10, Blood Urea Nitrogen 24H, Creatinine 0.8, Estimat Glomerular Filtration Rate > 60, Glucose Level 108H, Calcium Level 9.7, Phosphorus Level 2.9, Magnesium Level 2.3, Total Bilirubin 0.7, Aspartate Amino Transf (AST/SGOT) 49H, Alanine Aminotransferase (ALT/SGPT) 101H, Alkaline Phosphatase 96, C-Reactive Protein, Quantitative 9.2H, Total Protein 8.9H, Total Protein (PEP) [Pending], Albumin 2.5L, Albumin (PEP) [Pending], Globulin 6.4, Globulin (PEP) [Pending], Albumin/Globulin Ratio [Pending], Alpha-1- Globulins [Pending], Uiafr-4-Xtxoigtbc [Pending], Beta Globulins [Pending], Beta Gamma Globulin [Pending], PEP Abnormal Protein Bands [Pending], Protein Electrophoresis Interpret [Pending], HIV (1&2) Antibody Rapid Negative Current Medications Medications (Trade) Dose Ordered Sig/Kory Route PRN Reason Start Time Stop Time Status Last Admin Dose Admin Acetaminophen (Tylenol) 650 mg Q6H PRN NG Prn Headache/Temp > 101 05/12/19 06:45 06/11/19 06:44 Albuterol/ Ipratropium (Albuterol/ Ipratropium) 3 ml Q4H PRN HHN Shortness of Breath 05/08/19 12:45 05/13/19 12:44 05/08/19 17:49 Dextrose 1,000 ml @ 50 mls/hr Q20H IV 05/11/19 14:00 06/10/19 13:59 05/12/19 08:56 Dextrose (Dextrose 50%) 25 ml Q30M PRN IV Hypoglycemia 04/16/19 17:30 05/13/19 16:29 05/04/19 04:47 Dextrose (Dextrose 50%) 50 ml Q30M PRN IV Hypoglycemia 04/16/19 17:30 05/13/19 16:29 Docusate Sodium (Colace) 100 mg TWICE A DAY GT 05/01/19 18:00 05/31/19 17:59 05/12/19 08:55 Insulin Aspart (NovoLOG) Q6HR SUBQ 04/16/19 18:00 05/13/19 17:59 05/12/19 12:33 Lactulose (Cephulac) 10 gm THREE TIMES A DAY GT 05/01/19 13:00 05/31/19 12:59 05/12/19 13:47 Lorazepam (Ativan 2mg/ml 1ml) 1 mg Q4H PRN IV for Restlessness 05/05/19 16:30 05/12/19 16:29 05/05/19 16:36 Meropenem 1 gm/ Sodium Chloride 55 ml @ 110 mls/hr Q8HR IVPB 05/10/19 14:00 05/15/19 13:59 05/12/19 05:19 Micafungin Sodium 100 mg/Dextrose 110 ml @ 110 mls/hr Q24H IVPB 04/30/19 12:00 05/16/19 11:59 05/12/19 13:47 Morphine Sulfate (Morphine Sulfate) 4 mg Q4H PRN IVP Moderate to severe Pain 05/10/19 09:15 05/17/19 09:14 Ondansetron HCl (Zofran) 4 mg Q6H PRN GT Nausea & Vomiting 04/16/19 17:30 05/12/19 17:29 Phenytoin 300 mg/ Sodium Chloride 55 ml @ 110 mls/hr DAILY IV 04/17/19 09:00 05/17/19 08:59 05/12/19 08:55 Polyethylene Glycol (Miralax) 17 gm BEDTIME GT 05/01/19 21:00 05/31/19 20:59 05/11/19 21:40 Primidone (Mysoline) 100 mg QHS GT 04/16/19 21:00 05/12/19 20:59 05/11/19 21:40 Sodium Phosphate (Fleet's Sodium Phosl Enema) 133 ml BIDPRN PRN RECTAL Constipation 05/01/19 18:15 05/31/19 18:14 05/01/19 23:17 Verapamil HCl (Calan) 80 mg EVERY 8 HOURS GT 04/18/19 14:45 05/16/19 14:44 05/12/19 13:47 Carlos Sauer MD May 12, 2019 14:16
[2019-05-12 16:00] VITALS: BP 126/80
--- NOTE | 2019-05-12 16:36 | NUR ---
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 PNA. SICKLE CELL ANEMIA . ENCEPHALOPATHY 98.6 89 20 126/80 99% ON 3L/NC WBC 20.6 ESR 61 NA+ 153 CL-113 AST/ALT 49/101 C-REC PROTEIN 9.2 T.PROTEIN 9.2 IS: IV D5 @50ML/HR IV MEROPENEM Q8HR IV MICAFUNGIN Q24H CALAN GT Q8H IV DILANTIN QD PRIMIDONE GT QHS LACTULOSE GT TID NOVOLOG SQ Q6HR \: 4E MED SURG UNIT PLAN OF CARE: PSYC EVAL FUNGEMIA NEED TO STABILIZE PRIOR TO GAGAN
--- NOTE | 2019-05-12 17:30 | Progress Note ---
DATE: 05/12/2019 SUBJECTIVE: This is a 43-year-old male. He has sepsis. He has got confusion, some disorganized thought process, and decline in cognition below his baseline. MENTAL STATUS EXAMINATION: This is a 43-year-old male. Appearance is disheveled. Attitude, irritable and agitated. Affect, guarded and restricted. Intellect, poor. Mood, depressed and anxious. Motor activity, psychomotor agitation. Attention span is poor. Orientation x2. Speech is pressured. Thought process, disorganized and illogical. Insight and judgment is poor. DIAGNOSIS: Major depressive disorder, severe, recurrent with psychotic features; rule out dementia with psychosis; rule out paranoid schizophrenia. PLAN: Continue treatment with medications to stabilize his mood. Provide him with 20 minutes of reality-based supportive psychotherapy. Chart reviewed. Discussed with the staff. Seen and assessed at bedside. Osbaldo Bird M.D. DR: SAMI JOB#: [id number] CC:
--- NOTE | 2019-05-12 19:07 | NUR ---
HAND-OFF: Report given to EDUAR Landers. Pt is stable.
[2019-05-12 19:59] VITALS: BP 109/75
[2019-05-12] MEDS: Miralax 17gm pkt GT SCH (20:04)
[2019-05-12] MEDS: Acetaminophen 650mg/20.3ml NG PRN (20:06)
[2019-05-13] VITALS: BP 114/79
[2019-05-13] MEDS: NovoLOG Insulin Flexpen SUBQ SCH ×3 (00:07→12:00)
[2019-05-13 04:00] VITALS: BP 109/75
[2019-05-13] MEDS: Meropenem 1 GM in NS 55 ML IVPB SCH ×3 (05:02→21:32)
[2019-05-13] MEDS: Verapamil 80mg tab GT SCH ×3 (05:02→21:32)
[2019-05-13] MEDS: Acetaminophen 650mg/20.3ml NG PRN (05:03)
[2019-05-13 06:11] LABS: HEMATOCRIT 40.9 % (42.0-52.0); HEMOGLOBIN 14.1 G/DL (14.2-18.0); MEAN CORPUSCULAR VOLUME 89 FL (80-99); PLATELET COUNT 248 K/UL (150-450); RED BLOOD COUNT 4.58 M/UL (4.70-6.10); RED CELL DISTRIBUTION WIDTH 16.9 % (11.6-14.8)
[2019-05-13 06:24] LABS: WHITE BLOOD COUNT 22.9 K/UL (4.8-10.8)
[2019-05-13 06:34] LABS: ANION GAP 9 mmol/L (5-15); BLOOD UREA NITROGEN 31 mg/dL (7-18); CALCIUM 9.6 MG/DL (8.5-10.1); CARBON DIOXIDE 32 MMOL/L (21-32); CHLORIDE 116 MMOL/L (98-107); CREATININE 0.9 MG/DL (0.55-1.30); SODIUM 156 MMOL/L (136-145)
--- NOTE | 2019-05-13 07:18 | NUR ---
HAND-OFF: Report given to Makayla Tiwari RN.Critical value WBC-22.9; left message to Dr Ortega,awaiting call back.
[2019-05-13 08:00] VITALS: BP 108/75
--- NOTE | 2019-05-13 08:02 | NUR ---
NURSE NOTES: received report from EDUAR Landers. patient in bed. non verbal. disoriented. no respiratory distress on 3L via NC. no facial grimacing noted. GTF jevity 1.2 @60/hr. NO residual. F/C draining. dark yellow. no sediment. HOB at all times. bed in the lowest position and locked. call light within reach. alarm on. will continue to provide plan of care.
--- NOTE | 2019-05-13 09:07 | General Progress Note ---
Assessment/Plan Problem List: (1) Pneumonia ICD Codes: J18.9 - Pneumonia, unspecified organism SNOMED: 257361915 (2) Sickle cell anemia ICD Codes: D57.1 - Sickle-cell disease without crisis SNOMED: 564143200 (3) Sepsis ICD Codes: A41.9 - Sepsis, unspecified organism SNOMED: 88283563 Status: unchanged Assessment/Plan: pt diet abx psyc neuro eval cbc bmp am Subjective Constitutional: Reports: weakness Allergies: Coded Allergies: No Known Allergies (Unverified , 04/11/19) All Systems: reviewed and negative except above Subjective o2nc sleepy calm Objective Last 24 Hour Vital Signs Date Time Temp Pulse Resp B/P (MAP) Pulse Ox O2 Delivery O2 Flow Rate FiO2 05/13/19 08:00 97.6 125 16 108/75 (86) 97 05/13/19 06:16 99.8 05/13/19 05:02 127 109/75 05/13/19 04:00 101.0 127 22 109/75 (86) 96 05/13/19 00:00 98.9 128 22 114/79 (91) 96 05/12/19 21:05 138 109/75 05/12/19 20:52 Nasal Cannula 3.0 05/12/19 19:59 101.1 138 20 109/75 (86) 92 05/12/19 19:52 94 Nasal Cannula 3.0 32 05/12/19 19:51 130 20 94 Nasal Cannula 3.0 32 05/12/19 16:00 98.6 89 20 126/80 (95) 99 05/12/19 14:57 94 Nasal Cannula 3.0 32 05/12/19 14:51 127 24 94 Nasal Cannula 3.0 32 05/12/19 13:47 86 133/79 05/12/19 12:00 98.8 86 19 133/79 (97) 98 Intake and Output 05/12/19 05/13/19 19:00 07:00 Intake Total 1490 ml 1475 ml Output Total 1000 ml Balance 490 ml 1475 ml Free Water 220 ml IV Total 770 ml 535 ml Tube Feeding 720 ml 720 ml Output Urine Total 1000 ml Laboratory Tests 05/13/19 04:35: White Blood Count 22.9*H, Red Blood Count 4.58L, Hemoglobin 14.1L, Hematocrit 40.9L, Mean Corpuscular Volume 89, Mean Corpuscular Hemoglobin 30.7, Mean Corpuscular Hemoglobin Concent 34.5, Red Cell Distribution Width 16.9H, Platelet Count 248, Mean Platelet Volume 6.8, Neutrophils (%) (Auto) , Lymphocytes (%) (Auto) , Monocytes (%) (Auto) , Eosinophils (%) (Auto) , Basophils (%) (Auto) , Neutrophils % (Manual) [Pending], Lymphocytes % (Manual) [Pending], Platelet Estimate [Pending], Platelet Morphology [Pending], Sodium Level 156H, Potassium Level 4.0, Chloride Level 116H, Carbon Dioxide Level 32, Anion Gap 9, Blood Urea Nitrogen 31H, Creatinine 0.9, Estimat Glomerular Filtration Rate > 60, Glucose Level 107H, Calcium Level 9.6 Height (Feet): 5 Height (Inches): 5.00 Weight (Pounds): 123 General Appearance: lethargic EENT: normal ENT inspection Neck: normal alignment Cardiovascular: normal peripheral pulses, normal rate, regular rhythm Respiratory/Chest: chest wall non-tender, lungs clear, normal breath sounds Abdomen: normal bowel sounds, non tender, soft Extremities: normal inspection Edema: no edema noted Arm (L), no edema noted Arm (R), no edema noted Leg (L), no edema noted Leg (R), no edema noted Pedal (L), no edema noted Pedal (R), no edema noted Generalized Neurologic: motor weakness Skin: normal pigmentation, warm/dry Marito Ortega DO May 13, 2019 09:07
--- NOTE | 2019-05-13 09:24 | General Progress Note ---
Assessment/Plan Status: unchanged Assessment/Plan: 1. History of CVA. 2. Dysphagia with G-tube. 3. Hypertension. 4. GERD. 5. Epilepsy. 6. Peptic ulcer disease. 7.constipation 8. Elevated LFTS 9. fungemia laxative abd us>>> reviewed>>> gallstones repeat labs repeat LFTS >> improving stable H&H hepatitis panel GTF GT care abx per ID cardiology note appreciated Subjective ROS Limited/Unobtainable: Yes Allergies: Coded Allergies: No Known Allergies (Unverified , 04/11/19) Objective Last 24 Hour Vital Signs Date Time Temp Pulse Resp B/P (MAP) Pulse Ox O2 Delivery O2 Flow Rate FiO2 05/13/19 08:00 97.6 125 16 108/75 (86) 97 05/13/19 06:16 99.8 05/13/19 05:02 127 109/75 05/13/19 04:00 101.0 127 22 109/75 (86) 96 05/13/19 00:00 98.9 128 22 114/79 (91) 96 05/12/19 21:05 138 109/75 05/12/19 20:52 Nasal Cannula 3.0 05/12/19 19:59 101.1 138 20 109/75 (86) 92 05/12/19 19:52 94 Nasal Cannula 3.0 32 05/12/19 19:51 130 20 94 Nasal Cannula 3.0 32 05/12/19 16:00 98.6 89 20 126/80 (95) 99 05/12/19 14:57 94 Nasal Cannula 3.0 32 05/12/19 14:51 127 24 94 Nasal Cannula 3.0 32 05/12/19 13:47 86 133/79 05/12/19 12:00 98.8 86 19 133/79 (97) 98 Intake and Output 05/12/19 05/13/19 19:00 07:00 Intake Total 1490 ml 1475 ml Output Total 1000 ml Balance 490 ml 1475 ml Free Water 220 ml IV Total 770 ml 535 ml Tube Feeding 720 ml 720 ml Output Urine Total 1000 ml Laboratory Tests 05/13/19 04:35: White Blood Count 22.9*H, Red Blood Count 4.58L, Hemoglobin 14.1L, Hematocrit 40.9L, Mean Corpuscular Volume 89, Mean Corpuscular Hemoglobin 30.7, Mean Corpuscular Hemoglobin Concent 34.5, Red Cell Distribution Width 16.9H, Platelet Count 248, Mean Platelet Volume 6.8, Neutrophils (%) (Auto) , Lymphocytes (%) (Auto) , Monocytes (%) (Auto) , Eosinophils (%) (Auto) , Basophils (%) (Auto) , Differential Total Cells Counted 100, Neutrophils % ( Manual) 79H, Lymphocytes % (Manual) 12L, Monocytes % (Manual) 8, Eosinophils % ( Manual) 0, Basophils % (Manual) 1, Band Neutrophils 0, Nucleated Red Blood Cells 3, Platelet Estimate Adequate, Platelet Morphology Normal, Target Cells 1+ , Sodium Level 156H, Potassium Level 4.0, Chloride Level 116H, Carbon Dioxide Level 32, Anion Gap 9, Blood Urea Nitrogen 31H, Creatinine 0.9, Estimat Glomerular Filtration Rate > 60, Glucose Level 107H, Calcium Level 9.6 Height (Feet): 5 Height (Inches): 5.00 Weight (Pounds): 123 General Appearance: alert EENT: normal ENT inspection Neck: normal alignment Cardiovascular: normal rate Respiratory/Chest: decreased breath sounds Abdomen: normal bowel sounds, non tender, soft Extremities: non-tender Faizan Esqueda MD May 13, 2019 09:24
[2019-05-13] MEDS: Docusate 100mg/10ml Liq GT SCH ×2 (09:42→17:17)
[2019-05-13] MEDS: Lactulose 10gm/15ml UDC GT SCH ×3 (09:42→17:17)
[2019-05-13] MEDS: PHENYTOIN IV SCH (09:42)
[2019-05-13] MEDS: NS IV SCH (09:42)
[2019-05-13 12:00] VITALS: BP 122/90
[2019-05-13] MEDS: Micafungin 100 MG in D5W 110 ML IVPB SCH (12:18)
[2019-05-13] MEDS: Vancomycin 1.25gm/NS Premix IVPB SCH (12:51)
--- NOTE | 2019-05-13 15:22 | Pulmonology Progress Note ---
Assessment/Plan Problems: (1) Fungemia (2) Sepsis (3) Nosocomial pneumonia (4) Chronic tachycardia (5) Epilepsy (6) Hereditary cerebellar ataxia (7) Cavitary lung disease (8) PG-Buozvuc-Qlzwtb disease (9) Feeding by G-tube Assessment/Plan febrile again, wbc higher iv abx symptomatic treatment feeding by Gtube aspiration precaution Verapamil for chronic tachycardia, double the dose since, heart rate is low 100 monitor heart rate prbc prn Hem< 8 dvt prophylaxis. reviewed echo: normal EF Subjective ROS Limited/Unobtainable: Yes Allergies: Coded Allergies: No Known Allergies (Unverified , 04/11/19) Objective Last 24 Hour Vital Signs Date Time Temp Pulse Resp B/P (MAP) Pulse Ox O2 Delivery O2 Flow Rate FiO2 05/13/19 15:03 124 119/89 05/13/19 12:00 98.7 131 22 122/90 (101) 92 05/13/19 09:00 Nasal Cannula 3.0 05/13/19 08:50 94 Nasal Cannula 3.0 32 05/13/19 08:00 97.6 125 16 108/75 (86) 97 05/13/19 06:16 99.8 05/13/19 05:02 127 109/75 05/13/19 04:00 101.0 127 22 109/75 (86) 96 05/13/19 00:00 98.9 128 22 114/79 (91) 96 05/12/19 21:05 138 109/75 05/12/19 20:52 Nasal Cannula 3.0 05/12/19 19:59 101.1 138 20 109/75 (86) 92 05/12/19 19:52 94 Nasal Cannula 3.0 32 05/12/19 19:51 130 20 94 Nasal Cannula 3.0 32 05/12/19 16:00 98.6 89 20 126/80 (95) 99 Intake and Output 05/12/19 05/13/19 19:00 07:00 Intake Total 1490 ml 1475 ml Output Total 1000 ml Balance 490 ml 1475 ml Free Water 220 ml IV Total 770 ml 535 ml Tube Feeding 720 ml 720 ml Output Urine Total 1000 ml Objective General Appearance: no acute distress HEENT: normocephalic, anicteric Respiratory/Chest: chest wall non-tender, rhonchi Cardiovascular: normal peripheral pulses, normal rate, regular rhythm Abdomen: normal bowel sounds, soft, non tender Genitourinary: normal external genitalia Extremities: no cyanosis Laboratory Tests 05/13/19 04:35: White Blood Count 22.9*H, Red Blood Count 4.58L, Hemoglobin 14.1L, Hematocrit 40.9L, Mean Corpuscular Volume 89, Mean Corpuscular Hemoglobin 30.7, Mean Corpuscular Hemoglobin Concent 34.5, Red Cell Distribution Width 16.9H, Platelet Count 248, Mean Platelet Volume 6.8, Neutrophils (%) (Auto) , Lymphocytes (%) (Auto) , Monocytes (%) (Auto) , Eosinophils (%) (Auto) , Basophils (%) (Auto) , Differential Total Cells Counted 100, Neutrophils % ( Manual) 79H, Lymphocytes % (Manual) 12L, Monocytes % (Manual) 8, Eosinophils % ( Manual) 0, Basophils % (Manual) 1, Band Neutrophils 0, Nucleated Red Blood Cells 3, Platelet Estimate Adequate, Platelet Morphology Normal, Target Cells 1+ , Sodium Level 156H, Potassium Level 4.0, Chloride Level 116H, Carbon Dioxide Level 32, Anion Gap 9, Blood Urea Nitrogen 31H, Creatinine 0.9, Estimat Glomerular Filtration Rate > 60, Glucose Level 107H, Calcium Level 9.6 Current Medications Medications (Trade) Dose Ordered Sig/Kory Route PRN Reason Start Time Stop Time Status Last Admin Dose Admin Acetaminophen (Tylenol) 650 mg Q6H PRN NG Prn Headache/Temp > 101 05/12/19 06:45 06/11/19 06:44 05/13/19 05:03 Dextrose 1,000 ml @ 50 mls/hr Q20H IV 05/11/19 14:00 06/10/19 13:59 05/13/19 05:04 Dextrose (Dextrose 50%) 25 ml Q30M PRN IV Hypoglycemia 04/16/19 17:30 05/13/19 16:29 05/04/19 04:47 Dextrose (Dextrose 50%) 50 ml Q30M PRN IV Hypoglycemia 04/16/19 17:30 05/13/19 16:29 Docusate Sodium (Colace) 100 mg TWICE A DAY GT 05/01/19 18:00 05/31/19 17:59 05/13/19 09:42 Insulin Aspart (NovoLOG) Q6HR SUBQ 04/16/19 18:00 05/13/19 17:59 05/13/19 05:56 Lactulose (Cephulac) 10 gm THREE TIMES A DAY GT 05/01/19 13:00 05/31/19 12:59 05/13/19 13:00 Meropenem 1 gm/ Sodium Chloride 55 ml @ 110 mls/hr Q8HR IVPB 05/10/19 14:00 05/15/19 13:59 05/13/19 15:03 Micafungin Sodium 100 mg/Dextrose 110 ml @ 110 mls/hr Q24H IVPB 04/30/19 12:00 05/16/19 11:59 05/13/19 12:18 Morphine Sulfate (Morphine Sulfate) 4 mg Q4H PRN IVP Moderate to severe Pain 05/10/19 09:15 05/17/19 09:14 Phenytoin 300 mg/ Sodium Chloride 55 ml @ 110 mls/hr DAILY IV 04/17/19 09:00 05/17/19 08:59 05/13/19 09:42 Polyethylene Glycol (Miralax) 17 gm BEDTIME GT 05/01/19 21:00 05/31/19 20:59 05/12/19 20:04 Sodium Phosphate (Fleet's Sodium Phosl Enema) 133 ml BIDPRN PRN RECTAL Constipation 05/01/19 18:15 05/31/19 18:14 05/01/19 23:17 Vancomycin HCl (Vanco rx to dose) 1 ea DAILY PRN MISC Per rx protocol 05/13/19 10:30 06/12/19 10:29 Vancomycin/Sodium Chloride 275 ml @ 183.333 mls/hr Q12H IVPB 05/13/19 12:00 05/18/19 11:59 05/13/19 12:51 Verapamil HCl (Calan) 80 mg EVERY 8 HOURS GT 04/18/19 14:45 05/16/19 14:44 05/13/19 15:03 Carlos Sauer MD May 13, 2019 15:22
--- NOTE | 2019-05-13 15:42 | Cardiac Electrophysiology PN ---
Assessment/Plan Assessment/Plan 1. Sinus tachycardia. No fib or SVT. EF 65%. Continue verapamil 80 mg every 8 hours through G-tube. Will repeat ECG 2. Hypertension, stable on verapamil. 3. Fungemia. Awaiting stabilization for GAGAN by Dr. Abad 4. Dysphagia, status post PEG placement. 5. History of CVA. 6. Epilepsy. 7. Peptic ulcer disease. 8. Elevated liver function tests. DW RN Subjective Subjective No new events. GAGAN still pending stabilization. still in sinus tach. Objective Last 24 Hour Vital Signs Date Time Temp Pulse Resp B/P (MAP) Pulse Ox O2 Delivery O2 Flow Rate FiO2 05/13/19 15:03 124 119/89 05/13/19 12:00 98.7 131 22 122/90 (101) 92 05/13/19 09:00 Nasal Cannula 3.0 05/13/19 08:50 94 Nasal Cannula 3.0 32 05/13/19 08:00 97.6 125 16 108/75 (86) 97 05/13/19 06:16 99.8 05/13/19 05:02 127 109/75 05/13/19 04:00 101.0 127 22 109/75 (86) 96 05/13/19 00:00 98.9 128 22 114/79 (91) 96 05/12/19 21:05 138 109/75 05/12/19 20:52 Nasal Cannula 3.0 05/12/19 19:59 101.1 138 20 109/75 (86) 92 05/12/19 19:52 94 Nasal Cannula 3.0 32 05/12/19 19:51 130 20 94 Nasal Cannula 3.0 32 05/12/19 16:00 98.6 89 20 126/80 (95) 99 Intake and Output 05/12/19 05/13/19 18:59 06:59 Intake Total 1540 ml 1475 ml Output Total 1000 ml Balance 540 ml 1475 ml Free Water 220 ml IV Total 820 ml 535 ml Tube Feeding 720 ml 720 ml Output Urine Total 1000 ml Laboratory Tests Test 05/13/19 04:35 White Blood Count 22.9 K/UL (4.8-10.8) *H Red Blood Count 4.58 M/UL (4.70-6.10) L Hemoglobin 14.1 G/DL (14.2-18.0) L Hematocrit 40.9 % (42.0-52.0) L Mean Corpuscular Volume 89 FL (80-99) Mean Corpuscular Hemoglobin 30.7 PG (27.0-31.0) Mean Corpuscular Hemoglobin Concent 34.5 G/DL (32.0-36.0) Red Cell Distribution Width 16.9 % (11.6-14.8) H Platelet Count 248 K/UL (150-450) Mean Platelet Volume 6.8 FL (6.5-10.1) Neutrophils (%) (Auto) % (45.0-75.0) Lymphocytes (%) (Auto) % (20.0-45.0) Monocytes (%) (Auto) % (1.0-10.0) Eosinophils (%) (Auto) % (0.0-3.0) Basophils (%) (Auto) % (0.0-2.0) Differential Total Cells Counted 100 Neutrophils % (Manual) 79 % (45-75) H Lymphocytes % (Manual) 12 % (20-45) L Monocytes % (Manual) 8 % (1-10) Eosinophils % (Manual) 0 % (0-3) Basophils % (Manual) 1 % (0-2) Band Neutrophils 0 % (0-8) Nucleated Red Blood Cells 3 /100 WBC Platelet Estimate Adequate Platelet Morphology Normal Target Cells 1+ Sodium Level 156 MMOL/L (136-145) H Potassium Level 4.0 MMOL/L (3.5-5.1) Chloride Level 116 MMOL/L (98-107) H Carbon Dioxide Level 32 MMOL/L (21-32) Anion Gap 9 mmol/L (5-15) Blood Urea Nitrogen 31 mg/dL (7-18) H Creatinine 0.9 MG/DL (0.55-1.30) Estimat Glomerular Filtration Rate > 60 mL/min (>60) Glucose Level 107 MG/DL (74-106) H Calcium Level 9.6 MG/DL (8.5-10.1) Objective HEAD AND NECK: No JVD. LUNGS: Coarse rhonchi. CARDIOVASCULAR: Regular S1 and S2 with no gallop or murmur. ABDOMEN: Status post G-tube. EXTREMITIES: No pitting edema. Kyree Soto MD May 13, 2019 15:42
[2019-05-13 16:00] VITALS: BP 119/89
[2019-05-13] MEDS ORDERED: Sterile Water Irrig 1000ml IRRIG ONE (16:39)
--- NOTE | 2019-05-13 19:38 | NUR ---
HAND-OFF: Report given to EDUAR anaya.
[2019-05-13 20:00] VITALS: BP 111/71
--- NOTE | 2019-05-13 20:00 | NUR ---
NURSE NOTES: Pt is in bed, awake. No acute distress noted. Pt appears to be comfortable. No SOB. HOB elevated. Pt is on aspiration precaution. Jevity 1.2 running at 60ml/hr. Garcia cath draining yellow urine. Nasal canula @ 3L. Pt to be suctioned as needed. Pt will be repositioned frequently. Bed locked low in position,side rails up and call light within reach.
[2019-05-13] MEDS: Miralax 17gm pkt GT SCH (21:33)
--- NOTE | 2019-05-13 22:30 | Progress Note ---
DATE: 05/13/2019 SUBJECTIVE: This is a male patient, who is 43 years old. He has altered mental status, confusion, and decline in cognition below his baseline. DIAGNOSIS: Major depressive disorder, mild, recurrent with psychotic features. PLAN: Continue treatment with psychotropic medications to stabilize his mood. A 20 minutes of reality-based supportive psychotherapy. Chart reviewed. Discussed with staff. Seen and assessed in his room. Behavioral management provided. Osbaldo Bird M.D. DR: ADAMARIS JOB#: [id number] CC:
[2019-05-14] VITALS: BP 101/66
[2019-05-14] MEDS: Vancomycin 1.25gm/NS Premix IVPB SCH ×2 (00:20→13:32)
[2019-05-14 04:00] VITALS: BP 96/64
[2019-05-14] MEDS: Verapamil 80mg tab GT SCH ×3 (05:28→21:23)
[2019-05-14] MEDS: Meropenem 1 GM in NS 55 ML IVPB SCH ×3 (05:53→21:29)
[2019-05-14] MEDS: NovoLOG Insulin Flexpen SUBQ SCH ×3 (06:22→18:03)
--- NOTE | 2019-05-14 07:05 | NUR ---
HAND-OFF: Report given to EDUAR Benavides.
[2019-05-14 07:23] LABS: HEMATOCRIT 38.8 % (42.0-52.0); HEMOGLOBIN 13.5 G/DL (14.2-18.0); MEAN CORPUSCULAR VOLUME 91 FL (80-99); PLATELET COUNT 151 K/UL (150-450); RED BLOOD COUNT 4.28 M/UL (4.70-6.10)
[2019-05-14 07:31] LABS: ANION GAP 10 mmol/L (5-15); BLOOD UREA NITROGEN 36 mg/dL (7-18); CALCIUM 9.4 MG/DL (8.5-10.1); CARBON DIOXIDE 28 MMOL/L (21-32); CHLORIDE 119 MMOL/L (98-107); POTASSIUM 4.6 MMOL/L (3.5-5.1); SODIUM 157 MMOL/L (136-145)
[2019-05-14 07:33] LABS: WHITE BLOOD COUNT 26.6 K/UL (4.8-10.8)
--- NOTE | 2019-05-14 07:33 | General Progress Note ---
Assessment/Plan Status: unchanged Assessment/Plan: 1. History of CVA. 2. Dysphagia with G-tube. 3. Hypertension. 4. GERD. 5. Epilepsy. 6. Peptic ulcer disease. 7.constipation 8. Elevated LFTS 9. fungemia laxative abd us>>> reviewed>>> gallstones repeat labs repeat LFTS >> improving stable H&H hepatitis panel GTF GT care abx per ID cardiology note appreciated Subjective ROS Limited/Unobtainable: No Allergies: Coded Allergies: No Known Allergies (Unverified , 04/11/19) Objective Last 24 Hour Vital Signs Date Time Temp Pulse Resp B/P (MAP) Pulse Ox O2 Delivery O2 Flow Rate FiO2 05/14/19 05:28 129 96/64 05/14/19 04:00 97.7 129 29 96/64 (75) 97 05/14/19 00:00 97.7 134 29 101/66 (78) 99 05/13/19 23:34 Nasal Cannula 3.0 05/13/19 21:32 128 111/71 05/13/19 20:00 98.9 128 25 111/71 (84) 96 05/13/19 16:11 99 Nasal Cannula 3.0 32 05/13/19 16:11 122 24 99 Nasal Cannula 3.0 32 05/13/19 16:00 97.4 124 22 119/89 (99) 95 05/13/19 15:03 124 119/89 05/13/19 12:00 98.7 131 22 122/90 (101) 92 05/13/19 09:00 Nasal Cannula 3.0 05/13/19 08:50 94 Nasal Cannula 3.0 32 05/13/19 08:00 97.6 125 16 108/75 (86) 97 Intake and Output 05/13/19 05/14/19 19:00 07:00 Intake Total 1616.666 ml 860 ml Output Total 1000 ml Balance 616.666 ml 860 ml Free Water 200 ml 200 ml IV Total 696.666 ml Tube Feeding 720 ml 660 ml Output Urine Total 1000 ml Laboratory Tests 05/14/19 06:43: White Blood Count [Pending], Red Blood Count [Pending], Hemoglobin [Pending], Hematocrit [Pending], Mean Corpuscular Volume [Pending], Mean Corpuscular Hemoglobin [Pending], Mean Corpuscular Hemoglobin Concent [Pending], Red Cell Distribution Width [Pending], Platelet Count [Pending], Mean Platelet Volume [ Pending], Neutrophils (%) (Auto) [Pending], Lymphocytes (%) (Auto) [Pending], Monocytes (%) (Auto) [Pending], Eosinophils (%) (Auto) [Pending], Basophils (%) (Auto) [Pending], Sodium Level [Pending], Potassium Level [Pending], Chloride Level [Pending], Carbon Dioxide Level [Pending], Blood Urea Nitrogen [Pending], Creatinine [Pending], Estimat Glomerular Filtration Rate [Pending], Glucose Level [Pending], Calcium Level [Pending] Height (Feet): 5 Height (Inches): 5.00 Weight (Pounds): 123 General Appearance: lethargic EENT: normal ENT inspection Neck: supple Cardiovascular: normal rate Respiratory/Chest: decreased breath sounds Abdomen: normal bowel sounds, non tender, soft Extremities: non-tender Faizan Esqueda MD May 14, 2019 07:33
--- NOTE | 2019-05-14 07:50 | NUR ---
NURSE NOTES: received report from EDUAR anaya. patient in bed. disoriented. non verbal. labored breathing. received call from Allie Carter. critical lab value WBC 26.6. notified Dr. Sauer. received order call to Dr. rey for further order. IV on LFA 24g saline lock. R wrist 22g running D5w @50/hr. bed in the lowest position and locked. call light within reach. alarm on. will continue to provide plan of care.
[2019-05-14 08:00] VITALS: BP 106/71
[2019-05-14] MEDS: Lactulose 10gm/15ml UDC GT SCH ×3 (09:02→17:53)
[2019-05-14] MEDS: NS IV SCH (09:02)
[2019-05-14] MEDS: Docusate 100mg/10ml Liq GT SCH ×2 (09:02→17:53)
[2019-05-14] MEDS: PHENYTOIN IV SCH (09:02)
--- NOTE | 2019-05-14 10:09 | Infectious Diseases Prog Note ---
Assessment/Plan Assessment/Plan Assessment: Sepsis Fungemia- r/o endocardiis Blood Cx 04/22/19 - C. alb Blood Cx 04/25/19 2/2 C. albicns Bcx 04/28, 05/05 neg TTE 04/12/19 - No Vegitations PNA - 05/06/19 Sp Cx MDR P.a. (S Imipenem) - 04/22/19 Sp Cx P.a. and acenetobacter -04/16 CXR: Left greater than right bibasilar opacities may represent atelectasis versus pneumonia. Findings are decreased compared to prior exam. -CXR: Left basilar atelectasis and possible consolidation -sp cx PsA (ramirez S) -influenza sc neg -u/a neg -HIV ab sc neg Fever; recurrent Leukocytosis; increasing Gram positive bacteremia- contaminant -04/11 Bcx 05/06 CONS; 04/12 Bcx NTD HTN dysphagia s/p GT cerebellar ataxia seizure disorder Alzheimer's dementia SNF resident Plan: - Meropenem #5 for the P.a. in the sputum - Continue Micafungin #19 -Continue empiric IV vancomycin #2 - 05/07/19 SP Zosyn #12 and Bactrim # 12 - 04/24 SP Meropenem #3 and Vancomycin #3 - 04/22/19 SP Zosyn #3 -04/19 SP Cefepime #9 for PsA PNA -04/18 SP Azithromycin #7/7 -04/16 SP IV Vancomycin #6 -04/11 SP Ceftriaxone x1 -GAGAN recommended if rep status improves and if consistent with goals of care -Monitor CBC/CMP, temperatures -GT care -aspiration precautions -Sp cx, u/a, ucx, Bcx x2, CXR -Now made DNR/DNI -CBC, CMP am Thank you for consulting [facility]. Will continue to follow along with you. Subjective Allergies: Coded Allergies: No Known Allergies (Unverified , 04/11/19) Subjective Tm 101 wbc increased started on IV vancomycin yesterday now made DNR/DNI Objective Vital Signs Last 24 Hour Vital Signs Date Time Temp Pulse Resp B/P (MAP) Pulse Ox O2 Delivery O2 Flow Rate FiO2 05/14/19 08:00 97.7 126 20 106/71 (83) 93 05/14/19 05:28 129 96/64 05/14/19 04:00 97.7 129 29 96/64 (75) 97 05/14/19 00:00 97.7 134 29 101/66 (78) 99 05/13/19 23:34 Nasal Cannula 3.0 05/13/19 21:32 128 111/71 05/13/19 20:00 98.9 128 25 111/71 (84) 96 05/13/19 16:11 99 Nasal Cannula 3.0 32 05/13/19 16:11 122 24 99 Nasal Cannula 3.0 32 05/13/19 16:00 97.4 124 22 119/89 (99) 95 05/13/19 15:03 124 119/89 05/13/19 12:00 98.7 131 22 122/90 (101) 92 Height (Feet): 5 Height (Inches): 5.00 Weight (Pounds): 123 Objective GENERAL: Calm in bed, lethargic, confused, and nonverbal. VITAL SIGNS: Temperature 101, pulse 98, respirations 21, and blood pressure 108/74. CARDIOVASCULAR: No murmurs. LUNGS: Poor air exchange. ABDOMEN: Bowel sounds distant. EXTREMITIES: No cyanosis, clubbing, or edema. NEUROLOGIC: The patient is flaccid in bed, not following directions. Laboratory Tests Test 05/14/19 06:43 White Blood Count 26.6 K/UL (4.8-10.8) *H Red Blood Count 4.28 M/UL (4.70-6.10) L Hemoglobin 13.5 G/DL (14.2-18.0) L Hematocrit 38.8 % (42.0-52.0) L Mean Corpuscular Volume 91 FL (80-99) Mean Corpuscular Hemoglobin 31.4 PG (27.0-31.0) H Mean Corpuscular Hemoglobin Concent 34.7 G/DL (32.0-36.0) Red Cell Distribution Width 17.0 % (11.6-14.8) H Platelet Count 151 K/UL (150-450) Mean Platelet Volume 8.0 FL (6.5-10.1) Neutrophils (%) (Auto) % (45.0-75.0) Lymphocytes (%) (Auto) % (20.0-45.0) Monocytes (%) (Auto) % (1.0-10.0) Eosinophils (%) (Auto) % (0.0-3.0) Basophils (%) (Auto) % (0.0-2.0) Differential Total Cells Counted 100 Neutrophils % (Manual) 75 % (45-75) Lymphocytes % (Manual) 15 % (20-45) L Monocytes % (Manual) 10 % (1-10) Eosinophils % (Manual) 0 % (0-3) Basophils % (Manual) 0 % (0-2) Band Neutrophils 0 % (0-8) Platelet Estimate Adequate Platelet Morphology Normal Polychromasia Anisocytosis 1+ Sodium Level 157 MMOL/L (136-145) H Potassium Level 4.6 MMOL/L (3.5-5.1) Chloride Level 119 MMOL/L (98-107) H Carbon Dioxide Level 28 MMOL/L (21-32) Anion Gap 10 mmol/L (5-15) Blood Urea Nitrogen 36 mg/dL (7-18) H Creatinine 1.0 MG/DL (0.55-1.30) Estimat Glomerular Filtration Rate > 60 mL/min (>60) Glucose Level 114 MG/DL (74-106) H Calcium Level 9.4 MG/DL (8.5-10.1) Current Medications Medications (Trade) Dose Ordered Sig/Kory Route PRN Reason Start Time Stop Time Status Last Admin Dose Admin Acetaminophen (Tylenol) 650 mg Q6H PRN NG Prn Headache/Temp > 101 05/12/19 06:45 06/11/19 06:44 05/13/19 05:03 Dextrose 1,000 ml @ 50 mls/hr Q20H IV 05/11/19 14:00 06/10/19 13:59 05/13/19 05:04 Dextrose (Dextrose 50%) 25 ml Q30M PRN IV Hypoglycemia 05/14/19 05:30 06/13/19 05:29 Dextrose (Dextrose 50%) 50 ml Q30M PRN IV Hypoglycemia 05/14/19 05:30 06/13/19 05:29 Docusate Sodium (Colace) 100 mg TWICE A DAY GT 05/01/19 18:00 05/31/19 17:59 05/14/19 09:02 Insulin Aspart (NovoLOG) Q6HR SUBQ 05/14/19 06:00 06/13/19 05:59 05/14/19 06:22 Lactulose (Cephulac) 10 gm THREE TIMES A DAY GT 05/01/19 13:00 05/31/19 12:59 05/14/19 09:02 Meropenem 1 gm/ Sodium Chloride 55 ml @ 110 mls/hr Q8HR IVPB 05/10/19 14:00 05/15/19 13:59 05/14/19 05:53 Micafungin Sodium 100 mg/Dextrose 110 ml @ 110 mls/hr Q24H IVPB 04/30/19 12:00 05/16/19 11:59 05/13/19 12:18 Morphine Sulfate (Morphine Sulfate) 4 mg Q4H PRN IVP Moderate to severe Pain 05/10/19 09:15 05/17/19 09:14 05/13/19 18:01 Phenytoin 300 mg/ Sodium Chloride 55 ml @ 110 mls/hr DAILY IV 04/17/19 09:00 05/17/19 08:59 05/14/19 09:02 Polyethylene Glycol (Miralax) 17 gm BEDTIME GT 05/01/19 21:00 05/31/19 20:59 05/13/19 21:33 Sodium Phosphate (Fleet's Sodium Phosl Enema) 133 ml BIDPRN PRN RECTAL Constipation 05/01/19 18:15 05/31/19 18:14 05/01/19 23:17 Vancomycin HCl (Vanco rx to dose) 1 ea DAILY PRN MISC Per rx protocol 05/13/19 10:30 06/12/19 10:29 Vancomycin/Sodium Chloride 275 ml @ 183.333 mls/hr Q12H IVPB 05/13/19 12:00 05/18/19 11:59 05/14/19 00:20 Verapamil HCl (Calan) 80 mg EVERY 8 HOURS GT 04/18/19 14:45 05/16/19 14:44 05/13/19 21:32 Shirley Cadena M.D. May 14, 2019 10:09
--- NOTE | 2019-05-14 10:38 | General Progress Note ---
Assessment/Plan Problem List: (1) Pneumonia ICD Codes: J18.9 - Pneumonia, unspecified organism SNOMED: 216908148 (2) Sickle cell anemia ICD Codes: D57.1 - Sickle-cell disease without crisis SNOMED: 820503667 (3) Sepsis ICD Codes: A41.9 - Sepsis, unspecified organism SNOMED: 17794705 Status: unchanged Assessment/Plan: pt diet abx psyc neuro eval cbc bmp am Subjective Constitutional: Reports: weakness Allergies: Coded Allergies: No Known Allergies (Unverified , 04/11/19) All Systems: reviewed and negative except above Subjective o2nc sleepy calm Objective Last 24 Hour Vital Signs Date Time Temp Pulse Resp B/P (MAP) Pulse Ox O2 Delivery O2 Flow Rate FiO2 05/14/19 09:00 Nasal Cannula 3.0 05/14/19 08:00 97.7 126 20 106/71 (83) 93 05/14/19 05:28 129 96/64 05/14/19 04:00 97.7 129 29 96/64 (75) 97 05/14/19 00:00 97.7 134 29 101/66 (78) 99 05/13/19 23:34 Nasal Cannula 3.0 05/13/19 21:32 128 111/71 05/13/19 20:00 98.9 128 25 111/71 (84) 96 05/13/19 16:11 99 Nasal Cannula 3.0 32 05/13/19 16:11 122 24 99 Nasal Cannula 3.0 32 05/13/19 16:00 97.4 124 22 119/89 (99) 95 05/13/19 15:03 124 119/89 05/13/19 12:00 98.7 131 22 122/90 (101) 92 Intake and Output 05/13/19 05/14/19 19:00 07:00 Intake Total 1616.666 ml 860 ml Output Total 1000 ml Balance 616.666 ml 860 ml Free Water 200 ml 200 ml IV Total 696.666 ml Tube Feeding 720 ml 660 ml Output Urine Total 1000 ml Laboratory Tests 05/14/19 06:43: White Blood Count 26.6*H, Red Blood Count 4.28L, Hemoglobin 13.5L, Hematocrit 38.8L, Mean Corpuscular Volume 91, Mean Corpuscular Hemoglobin 31.4H, Mean Corpuscular Hemoglobin Concent 34.7, Red Cell Distribution Width 17.0H, Platelet Count 151, Mean Platelet Volume 8.0, Neutrophils (%) (Auto) , Lymphocytes (%) (Auto) , Monocytes (%) (Auto) , Eosinophils (%) (Auto) , Basophils (%) (Auto) , Differential Total Cells Counted 100, Neutrophils % ( Manual) 75, Lymphocytes % (Manual) 15L, Monocytes % (Manual) 10, Eosinophils % ( Manual) 0, Basophils % (Manual) 0, Band Neutrophils 0, Platelet Estimate Adequate, Platelet Morphology Normal, Polychromasia , Anisocytosis 1+, Sodium Level 157H, Potassium Level 4.6, Chloride Level 119H, Carbon Dioxide Level 28, Anion Gap 10, Blood Urea Nitrogen 36H, Creatinine 1.0, Estimat Glomerular Filtration Rate > 60, Glucose Level 114H, Calcium Level 9.4 Height (Feet): 5 Height (Inches): 5.00 Weight (Pounds): 123 General Appearance: lethargic EENT: normal ENT inspection Neck: normal alignment Cardiovascular: normal peripheral pulses, normal rate, regular rhythm Respiratory/Chest: chest wall non-tender, lungs clear, normal breath sounds Abdomen: normal bowel sounds, non tender, soft Extremities: normal inspection Edema: no edema noted Arm (L), no edema noted Arm (R), no edema noted Leg (L), no edema noted Leg (R), no edema noted Pedal (L), no edema noted Pedal (R), no edema noted Generalized Neurologic: motor weakness Skin: normal pigmentation, warm/dry Marito Ortega DO May 14, 2019 10:38
--- NOTE | 2019-05-14 11:23 | Diagnostic Imaging Report ---
EXAM: XR Chest, 1 View CLINICAL HISTORY: COUGH TECHNIQUE: Frontal view of the chest. COMPARISON: Chest x-ray dated 05/10/19 FINDINGS: Lungs: Increased interstitial markings. Subsegmental atelectasis versus infiltrates in bilateral lung bases. Pleural space: Unremarkable. The costophrenic angles are sharp. No visible pneumothorax. Heart: Unremarkable. No cardiomegaly. Mediastinum: Unremarkable. Bones/joints: Unremarkable. IMPRESSION: 1. Increased interstitial markings. This is nonspecific and may represent bronchitis or interstitial pneumonitis. 2. Subsegmental atelectasis versus infiltrates in bilateral lung bases.
--- NOTE | 2019-05-14 11:47 | Hematology/Onc Progress Note ---
Assessment/Plan Assessment/Plan ASSESSMENT AND PLAN: # Leukocytosis/elevated white blood cell count, unspecified likely related to underlying stress reaction v infection in this case with fungemia --> have reviewed peripheral smear and bandemia/neutrophilia noted --> continue antibiotics if they have been started by ID team, currently kelvin/ micafungin --> meds have been reviewed --> monitor for resolution --> wbc: 13.5 --> abx: vanc/kelvin # Sickle cell disease/anemia --> needs to be confirmed that actually has sickle cell --> hgb electrophoresis ordered --> smear reviewed # Hyperproteinmia -- also persistent --> spep to take several days # Tachycardia of unclear nature. There is no clear documentation of atrial fib or supraventricular tachycardia. His echo showed ejection fraction of 65%. --> continue on verapamil 80 mg every 8 hours through G-tube. --> per cards # Hypertension, stable on verapamil. --> as per cards, Dr. Soto # Multiple positive blood cultures for fungi. --> as per id --> meds noted # Dysphagia, status post PEG placement. # History of CVA. # Epilepsy. # Peptic ulcer disease. # Elevated liver function tests The timing of this note does not necessarily reflect the time of the patient was seen. Greatly appreciate consultation. Subjective Allergies: Coded Allergies: No Known Allergies (Unverified , 04/11/19) Subjective 05/14: awake, nonverbal, no acute events, nc 3l, labs reviewed Objective Objective Current Medications Medications (Trade) Dose Ordered Sig/Kory Route PRN Reason Start Time Stop Time Status Last Admin Dose Admin Acetaminophen (Tylenol) 650 mg Q6H PRN NG Prn Headache/Temp > 101 05/12/19 06:45 06/11/19 06:44 05/13/19 05:03 Dextrose 1,000 ml @ 50 mls/hr Q20H IV 05/11/19 14:00 06/10/19 13:59 05/13/19 05:04 Dextrose (Dextrose 50%) 25 ml Q30M PRN IV Hypoglycemia 05/14/19 05:30 06/13/19 05:29 Dextrose (Dextrose 50%) 50 ml Q30M PRN IV Hypoglycemia 05/14/19 05:30 06/13/19 05:29 Docusate Sodium (Colace) 100 mg TWICE A DAY GT 05/01/19 18:00 05/31/19 17:59 05/14/19 09:02 Insulin Aspart (NovoLOG) Q6HR SUBQ 05/14/19 06:00 06/13/19 05:59 05/14/19 06:22 Lactulose (Cephulac) 10 gm THREE TIMES A DAY GT 05/01/19 13:00 05/31/19 12:59 05/14/19 09:02 Meropenem 1 gm/ Sodium Chloride 55 ml @ 110 mls/hr Q8HR IVPB 05/10/19 14:00 05/15/19 13:59 05/14/19 05:53 Micafungin Sodium 100 mg/Dextrose 110 ml @ 110 mls/hr Q24H IVPB 04/30/19 12:00 05/16/19 11:59 05/13/19 12:18 Morphine Sulfate (Morphine Sulfate) 4 mg Q4H PRN IVP Moderate to severe Pain 05/10/19 09:15 05/17/19 09:14 05/13/19 18:01 Phenytoin 300 mg/ Sodium Chloride 55 ml @ 110 mls/hr DAILY IV 04/17/19 09:00 05/17/19 08:59 05/14/19 09:02 Polyethylene Glycol (Miralax) 17 gm BEDTIME GT 05/01/19 21:00 05/31/19 20:59 05/13/19 21:33 Sodium Phosphate (Fleet's Sodium Phosl Enema) 133 ml BIDPRN PRN RECTAL Constipation 05/01/19 18:15 05/31/19 18:14 05/01/19 23:17 Vancomycin HCl (Vanco rx to dose) 1 ea DAILY PRN MISC Per rx protocol 05/13/19 10:30 06/12/19 10:29 Vancomycin/Sodium Chloride 275 ml @ 183.333 mls/hr Q12H IVPB 05/13/19 12:00 05/18/19 11:59 05/14/19 00:20 Verapamil HCl (Calan) 80 mg EVERY 8 HOURS GT 04/18/19 14:45 05/16/19 14:44 05/13/19 21:32 Last 24 Hour Vital Signs Date Time Temp Pulse Resp B/P (MAP) Pulse Ox O2 Delivery O2 Flow Rate FiO2 05/14/19 09:00 Nasal Cannula 3.0 05/14/19 08:00 97.7 126 20 106/71 (83) 93 05/14/19 05:28 129 96/64 05/14/19 04:00 97.7 129 29 96/64 (75) 97 05/14/19 00:00 97.7 134 29 101/66 (78) 99 05/13/19 23:34 Nasal Cannula 3.0 05/13/19 21:32 128 111/71 05/13/19 20:00 98.9 128 25 111/71 (84) 96 05/13/19 16:11 99 Nasal Cannula 3.0 32 05/13/19 16:11 122 24 99 Nasal Cannula 3.0 32 05/13/19 16:00 97.4 124 22 119/89 (99) 95 05/13/19 15:03 124 119/89 05/13/19 12:00 98.7 131 22 122/90 (101) 92 05/13/19 09:00 Nasal Cannula 3.0 05/13/19 08:50 94 Nasal Cannula 3.0 32 05/13/19 08:00 97.6 125 16 108/75 (86) 97 05/13/19 06:16 99.8 05/13/19 05:02 127 109/75 05/13/19 04:00 101.0 127 22 109/75 (86) 96 05/13/19 00:00 98.9 128 22 114/79 (91) 96 05/12/19 21:05 138 109/75 05/12/19 20:52 Nasal Cannula 3.0 05/12/19 19:59 101.1 138 20 109/75 (86) 92 05/12/19 19:52 94 Nasal Cannula 3.0 32 05/12/19 19:51 130 20 94 Nasal Cannula 3.0 32 05/12/19 16:00 98.6 89 20 126/80 (95) 99 05/12/19 14:57 94 Nasal Cannula 3.0 32 05/12/19 14:51 127 24 94 Nasal Cannula 3.0 32 05/12/19 13:47 86 133/79 05/12/19 12:00 98.8 86 19 133/79 (97) 98 Intake and Output 05/13/19 05/14/19 19:00 07:00 Intake Total 1616.666 ml 860 ml Output Total 1000 ml Balance 616.666 ml 860 ml Free Water 200 ml 200 ml IV Total 696.666 ml Tube Feeding 720 ml 660 ml Output Urine Total 1000 ml Labs Test 05/12/19 04:43 05/13/19 04:35 05/14/19 06:43 White Blood Count 20.6 K/UL (4.8-10.8) 22.9 K/UL (4.8-10.8) 26.6 K/UL (4.8-10.8) Red Blood Count 4.36 M/UL (4.70-6.10) 4.58 M/UL (4.70-6.10) 4.28 M/UL (4.70-6.10) Hemoglobin 13.7 G/DL (14.2-18.0) 14.1 G/DL (14.2-18.0) 13.5 G/DL (14.2-18.0) Hematocrit 38.7 % (42.0-52.0) 40.9 % (42.0-52.0) 38.8 % (42.0-52.0) Mean Corpuscular Volume 89 FL (80-99) 89 FL (80-99) 91 FL (80-99) Mean Corpuscular Hemoglobin 31.4 PG (27.0-31.0) 30.7 PG (27.0-31.0) 31.4 PG (27.0-31.0) Mean Corpuscular Hemoglobin Concent 35.4 G/DL (32.0-36.0) 34.5 G/DL (32.0-36.0) 34.7 G/DL (32.0-36.0) Red Cell Distribution Width 16.8 % (11.6-14.8) 16.9 % (11.6-14.8) 17.0 % (11.6-14.8) Platelet Count 314 K/UL (150-450) 248 K/UL (150-450) 151 K/UL (150-450) Mean Platelet Volume 6.3 FL (6.5-10.1) 6.8 FL (6.5-10.1) 8.0 FL (6.5-10.1) Neutrophils (%) (Auto) % (45.0-75.0) % (45.0-75.0) % (45.0-75.0) Lymphocytes (%) (Auto) % (20.0-45.0) % (20.0-45.0) % (20.0-45.0) Monocytes (%) (Auto) % (1.0-10.0) % (1.0-10.0) % (1.0-10.0) Eosinophils (%) (Auto) % (0.0-3.0) % (0.0-3.0) % (0.0-3.0) Basophils (%) (Auto) % (0.0-2.0) % (0.0-2.0) % (0.0-2.0) Differential Total Cells Counted 100 100 100 Neutrophils % (Manual) 74 % (45-75) 79 % (45-75) 75 % (45-75) Lymphocytes % (Manual) 15 % (20-45) 12 % (20-45) 15 % (20-45) Monocytes % (Manual) 11 % (1-10) 8 % (1-10) 10 % (1-10) Eosinophils % (Manual) 0 % (0-3) 0 % (0-3) 0 % (0-3) Basophils % (Manual) 0 % (0-2) 1 % (0-2) 0 % (0-2) Band Neutrophils 0 % (0-8) 0 % (0-8) 0 % (0-8) Platelet Estimate Adequate Adequate Adequate Platelet Morphology Normal Normal Normal Polychromasia 1+ Anisocytosis 1+ 1+ Erythrocyte Sedimentation Rate 61 MM/HR (0-15) Sodium Level 153 MMOL/L (136-145) 156 MMOL/L (136-145) 157 MMOL/L (136-145) Potassium Level 3.8 MMOL/L (3.5-5.1) 4.0 MMOL/L (3.5-5.1) 4.6 MMOL/L (3.5-5.1) Chloride Level 113 MMOL/L (98-107) 116 MMOL/L (98-107) 119 MMOL/L (98-107) Carbon Dioxide Level 30 MMOL/L (21-32) 32 MMOL/L (21-32) 28 MMOL/L (21-32) Anion Gap 10 mmol/L (5-15) 9 mmol/L (5-15) 10 mmol/L (5-15) Blood Urea Nitrogen 24 mg/dL (7-18) 31 mg/dL (7-18) 36 mg/dL (7-18) Creatinine 0.8 MG/DL (0.55-1.30) 0.9 MG/DL (0.55-1.30) 1.0 MG/DL (0.55-1.30) Estimat Glomerular Filtration Rate > 60 mL/min (>60) > 60 mL/min (>60) > 60 mL/min (>60) Glucose Level 108 MG/DL (74-106) 107 MG/DL (74-106) 114 MG/DL (74-106) Calcium Level 9.7 MG/DL (8.5-10.1) 9.6 MG/DL (8.5-10.1) 9.4 MG/DL (8.5-10.1) Phosphorus Level 2.9 MG/DL (2.5-4.9) Magnesium Level 2.3 MG/DL (1.8-2.4) Total Bilirubin 0.7 MG/DL (0.2-1.0) Aspartate Amino Transf (AST/SGOT) 49 U/L (15-37) Alanine Aminotransferase (ALT/SGPT) 101 U/L (12-78) Alkaline Phosphatase 96 U/L (46-116) C-Reactive Protein, Quantitative 9.2 mg/dL (0.00-0.90) Total Protein 8.9 G/DL (6.4-8.2) Albumin 2.5 G/DL (3.4-5.0) Globulin 6.4 g/dL Albumin/Globulin Ratio 0.4 (1.0-2.7) HIV (1&2) Antibody Rapid Negative (NEGATIVE) Nucleated Red Blood Cells 3 /100 WBC Target Cells 1+ Height (Feet): 5 Height (Inches): 5.00 Weight (Pounds): 123 Objective PHYSICAL EXAMINATION: VITAL SIGNS: reviewed HEAD AND NECK: Showed no JVD. LUNGS: Coarse rhonchi. CARDIOVASCULAR: Regular S1 and S2 with no gallop or murmur. ABDOMEN: Status post G-tube. EXTREMITIES: No pitting edema. Mitch Pinzno MD May 14, 2019 11:47
[2019-05-14 12:00] VITALS: BP 109/72
[2019-05-14] MEDS: Micafungin 100 MG in D5W 110 ML IVPB SCH (13:20)
--- NOTE | 2019-05-14 13:36 | General Progress Note ---
Assessment/Plan Assessment/Plan: (1) Sacral decubitus ulcer (2) Dementia (3) Encephalopathy (4) Sepsis (5) Cerebral Ataxia (6) Sickle cell disease Pt will be continued on Morphine D/w Dr. Palomino and he concurred. Subjective Date patient seen: May 14, 2019 Time patient seen: 01:20 - pm ROS Limited/Unobtainable: Yes Allergies: Coded Allergies: No Known Allergies (Unverified , 04/11/19) Subjective Patient showing no signs of pain or distress. He had received on dose of Morphine in the last 24hrs. Pt has been changed to DNR/DNI. Objective Last 24 Hour Vital Signs Date Time Temp Pulse Resp B/P (MAP) Pulse Ox O2 Delivery O2 Flow Rate FiO2 05/14/19 12:00 98.6 131 22 109/72 (84) 94 05/14/19 09:00 Nasal Cannula 3.0 05/14/19 08:00 97.7 126 20 106/71 (83) 93 05/14/19 05:28 129 96/64 05/14/19 04:00 97.7 129 29 96/64 (75) 97 05/14/19 00:00 97.7 134 29 101/66 (78) 99 05/13/19 23:34 Nasal Cannula 3.0 05/13/19 21:32 128 111/71 05/13/19 20:00 98.9 128 25 111/71 (84) 96 05/13/19 16:11 99 Nasal Cannula 3.0 32 05/13/19 16:11 122 24 99 Nasal Cannula 3.0 32 05/13/19 16:00 97.4 124 22 119/89 (99) 95 05/13/19 15:03 124 119/89 Intake and Output 05/13/19 05/14/19 19:00 07:00 Intake Total 1616.666 ml 860 ml Output Total 1000 ml Balance 616.666 ml 860 ml Free Water 200 ml 200 ml IV Total 696.666 ml Tube Feeding 720 ml 660 ml Output Urine Total 1000 ml Laboratory Tests 05/14/19 06:43: White Blood Count 26.6*H, Red Blood Count 4.28L, Hemoglobin 13.5L, Hematocrit 38.8L, Mean Corpuscular Volume 91, Mean Corpuscular Hemoglobin 31.4H, Mean Corpuscular Hemoglobin Concent 34.7, Red Cell Distribution Width 17.0H, Platelet Count 151, Mean Platelet Volume 8.0, Neutrophils (%) (Auto) , Lymphocytes (%) (Auto) , Monocytes (%) (Auto) , Eosinophils (%) (Auto) , Basophils (%) (Auto) , Differential Total Cells Counted 100, Neutrophils % ( Manual) 75, Lymphocytes % (Manual) 15L, Monocytes % (Manual) 10, Eosinophils % ( Manual) 0, Basophils % (Manual) 0, Band Neutrophils 0, Platelet Estimate Adequate, Platelet Morphology Normal, Polychromasia , Anisocytosis 1+, Sodium Level 157H, Potassium Level 4.6, Chloride Level 119H, Carbon Dioxide Level 28, Anion Gap 10, Blood Urea Nitrogen 36H, Creatinine 1.0, Estimat Glomerular Filtration Rate > 60, Glucose Level 114H, Calcium Level 9.4 Height (Feet): 5 Height (Inches): 5.00 Weight (Pounds): 123 Objective General Appearance: no apparent distress EENT: normal ENT inspection Neck: non-tender Cardiovascular: normal rate Respiratory/Chest: decreased breath sounds Abdomen: other - Gtube noted Extremities: swelling Edema: trace edema Neurologic: responsive Skin: warm/dry Henrry Allison May 14, 2019 13:36
[2019-05-14 16:00] VITALS: BP 110/71
--- NOTE | 2019-05-14 16:39 | Pulmonology Progress Note ---
Assessment/Plan Problems: (1) Fungemia (2) Sepsis (3) Nosocomial pneumonia (4) Chronic tachycardia (5) Epilepsy (6) Hereditary cerebellar ataxia (7) Cavitary lung disease (8) LB-Ujmetqt-Lkbhpb disease (9) Feeding by G-tube Assessment/Plan febrile again, wbc higher iv abx symptomatic treatment feeding by Gtube aspiration precaution Verapamil for chronic tachycardia, double the dose since, heart rate is low 100 monitor heart rate prbc prn Hem< 8 dvt prophylaxis. reviewed echo: normal EF D/W brother this morning. I made him aware of the worsening medical condition and respiratory condition. He agreed with DNR and will start the arrangement. Subjective ROS Limited/Unobtainable: Yes Interval Events: breathing more shallow Allergies: Coded Allergies: No Known Allergies (Unverified , 04/11/19) Objective Last 24 Hour Vital Signs Date Time Temp Pulse Resp B/P (MAP) Pulse Ox O2 Delivery O2 Flow Rate FiO2 05/14/19 16:00 97.7 121 20 110/71 (84) 94 05/14/19 14:00 131 109/72 05/14/19 12:00 98.6 131 22 109/72 (84) 94 05/14/19 09:00 Nasal Cannula 3.0 05/14/19 08:00 97.7 126 20 106/71 (83) 93 05/14/19 05:28 129 96/64 05/14/19 04:00 97.7 129 29 96/64 (75) 97 05/14/19 00:00 97.7 134 29 101/66 (78) 99 05/13/19 23:34 Nasal Cannula 3.0 05/13/19 21:32 128 111/71 05/13/19 20:00 98.9 128 25 111/71 (84) 96 Intake and Output 05/13/19 05/14/19 19:00 07:00 Intake Total 1616.666 ml 920 ml Output Total 1000 ml Balance 616.666 ml 920 ml Free Water 200 ml 200 ml IV Total 696.666 ml Tube Feeding 720 ml 720 ml Output Urine Total 1000 ml Objective General Appearance: no acute distress HEENT: normocephalic, anicteric Respiratory/Chest: chest wall non-tender, rhonchi Cardiovascular: normal peripheral pulses, normal rate, regular rhythm Abdomen: normal bowel sounds, soft, non tender Genitourinary: normal external genitalia Extremities: no cyanosis Laboratory Tests 05/14/19 06:43: White Blood Count 26.6*H, Red Blood Count 4.28L, Hemoglobin 13.5L, Hematocrit 38.8L, Mean Corpuscular Volume 91, Mean Corpuscular Hemoglobin 31.4H, Mean Corpuscular Hemoglobin Concent 34.7, Red Cell Distribution Width 17.0H, Platelet Count 151, Mean Platelet Volume 8.0, Neutrophils (%) (Auto) , Lymphocytes (%) (Auto) , Monocytes (%) (Auto) , Eosinophils (%) (Auto) , Basophils (%) (Auto) , Differential Total Cells Counted 100, Neutrophils % ( Manual) 75, Lymphocytes % (Manual) 15L, Monocytes % (Manual) 10, Eosinophils % ( Manual) 0, Basophils % (Manual) 0, Band Neutrophils 0, Platelet Estimate Adequate, Platelet Morphology Normal, Polychromasia , Anisocytosis 1+, Sodium Level 157H, Potassium Level 4.6, Chloride Level 119H, Carbon Dioxide Level 28, Anion Gap 10, Blood Urea Nitrogen 36H, Creatinine 1.0, Estimat Glomerular Filtration Rate > 60, Glucose Level 114H, Calcium Level 9.4 Current Medications Medications (Trade) Dose Ordered Sig/Kory Route PRN Reason Start Time Stop Time Status Last Admin Dose Admin Acetaminophen (Tylenol) 650 mg Q6H PRN NG Prn Headache/Temp > 101 05/12/19 06:45 06/11/19 06:44 05/13/19 05:03 Dextrose 1,000 ml @ 50 mls/hr Q20H IV 05/11/19 14:00 06/10/19 13:59 05/13/19 05:04 Dextrose (Dextrose 50%) 25 ml Q30M PRN IV Hypoglycemia 05/14/19 05:30 06/13/19 05:29 Dextrose (Dextrose 50%) 50 ml Q30M PRN IV Hypoglycemia 05/14/19 05:30 06/13/19 05:29 Docusate Sodium (Colace) 100 mg TWICE A DAY GT 05/01/19 18:00 05/31/19 17:59 05/14/19 09:02 Insulin Aspart (NovoLOG) Q6HR SUBQ 05/14/19 06:00 06/13/19 05:59 05/14/19 13:19 Lactulose (Cephulac) 10 gm THREE TIMES A DAY GT 05/01/19 13:00 05/31/19 12:59 05/14/19 13:19 Meropenem 1 gm/ Sodium Chloride 55 ml @ 110 mls/hr Q8HR IVPB 05/10/19 14:00 05/19/19 13:59 05/14/19 14:44 Micafungin Sodium 100 mg/Dextrose 110 ml @ 110 mls/hr Q24H IVPB 04/30/19 12:00 05/16/19 11:59 05/14/19 13:20 Morphine Sulfate (Morphine Sulfate) 4 mg Q4H PRN IVP Moderate to severe Pain 05/10/19 09:15 05/17/19 09:14 05/13/19 18:01 Phenytoin 300 mg/ Sodium Chloride 55 ml @ 110 mls/hr DAILY IV 04/17/19 09:00 05/17/19 08:59 05/14/19 09:02 Polyethylene Glycol (Miralax) 17 gm BEDTIME GT 05/01/19 21:00 05/31/19 20:59 05/13/19 21:33 Sodium Phosphate (Fleet's Sodium Phosl Enema) 133 ml BIDPRN PRN RECTAL Constipation 05/01/19 18:15 05/31/19 18:14 05/01/19 23:17 Vancomycin HCl (Vanco rx to dose) 1 ea DAILY PRN MISC Per rx protocol 05/13/19 10:30 06/12/19 10:29 Vancomycin/Sodium Chloride 275 ml @ 183.333 mls/hr Q12H IVPB 05/13/19 12:00 05/18/19 11:59 05/14/19 13:32 Verapamil HCl (Calan) 80 mg EVERY 8 HOURS GT 04/18/19 14:45 05/16/19 14:44 05/13/19 21:32 Carlos Sauer MD May 14, 2019 16:39
--- NOTE | 2019-05-14 18:00 | Consultation ---
DATE OF CONSULTATION: SUBJECTIVE: This is a 43-year-old male with sepsis. He has confusion, disorganized thought process, and mood lability attending has requested daily psychiatric consultation. DIAGNOSIS: Major depressive disorder, mild with psychotic features. PLAN: Continue treatment with psychotropic medications. A 20 minutes of behavioral management . Osbaldo Bird M.D. DR: JUAN JOB#: [id number] CC:
--- NOTE | 2019-05-14 19:18 | NUR ---
HAND-OFF: Report given to EDUAR Cartagena .
[2019-05-14 20:00] VITALS: BP 114/66
--- NOTE | 2019-05-14 20:00 | NUR ---
NURSE NOTES: Pt is in bed, awake, labored breathing. HOB elevated. Pt is on aspiration precaution. G tube feeding noted, Jevity 1.2 running at 60ml/hr. Garcia cath draining yellow urine. Nasal canula @ 3L. Pt to be suctioned as needed. Pt will be repositioned frequently. Bed locked low in position,side rails up and call light within reach.
[2019-05-14] MEDS: Miralax 17gm pkt GT SCH (21:23)
[2019-05-15] VITALS: BP 96/66
[2019-05-15] MEDS: Acetaminophen 650mg/20.3ml NG PRN (02:30)
[2019-05-15 04:00] VITALS: BP 95/63
[2019-05-15] MEDS: Verapamil 80mg tab GT SCH ×3 (06:00→22:00)
[2019-05-15] MEDS: NovoLOG Insulin Flexpen SUBQ SCH ×4 (06:27→17:49)
[2019-05-15] MEDS: Meropenem 1 GM in NS 55 ML IVPB SCH ×3 (06:31→21:21)
[2019-05-15] MEDS ORDERED: LORazepam 0.5mg tab GT PRN (07:00)
--- NOTE | 2019-05-15 07:22 | NUR ---
HAND-OFF: Report given to EDUAR Robledo.
[2019-05-15 07:40] LABS: HEMATOCRIT 29.2 % (42.0-52.0); HEMOGLOBIN 10.3 G/DL (14.2-18.0); MEAN CORPUSCULAR VOLUME 89 FL (80-99); PLATELET COUNT 121 K/UL (150-450); RED CELL DISTRIBUTION WIDTH 14.8 % (11.6-14.8); WHITE BLOOD COUNT 21.3 K/UL (4.8-10.8)
[2019-05-15 07:53] LABS: ALANINE AMINOTRANSFERASE 95 U/L (12-78); ALBUMIN 1.9 G/DL (3.4-5.0); ALBUMIN/GLOBULIN RATIO 0.3 (1.0-2.7); ALKALINE PHOSPHATASE 80 U/L (46-116); ANION GAP 7 mmol/L (5-15); ASPARTATE AMINO TRANSFERASE 63 U/L (15-37); BILIRUBIN,TOTAL 0.8 MG/DL (0.2-1.0); BLOOD UREA NITROGEN 32 mg/dL (7-18); CALCIUM 8.7 MG/DL (8.5-10.1); CARBON DIOXIDE 28 MMOL/L (21-32); CHLORIDE 126 MMOL/L (98-107); CREATININE 0.9 MG/DL (0.55-1.30); POTASSIUM 3.6 MMOL/L (3.5-5.1)
[2019-05-15 08:00] VITALS: BP 118/83
[2019-05-15 08:01] LABS: SODIUM 162 MMOL/L (136-145)
--- NOTE | 2019-05-15 08:12 | NUR ---
NURSE NOTES: RN LEFT MESSAGE FOR DR YOUNG AND DR MCDANIELS REGARDING CRITICAL VALUE SODIUM LEVEL 162, AND MADE AWARE PT IS ON D5W AT 50CC/HR AND GTUBE FEEDING JEVITY 1.2 AT 60CC/H WITH FLUSH 10CC Q6H.
--- NOTE | 2019-05-15 08:42 | Hematology/Onc Progress Note ---
Assessment/Plan Assessment/Plan ASSESSMENT AND PLAN: # Leukocytosis/elevated white blood cell count, unspecified likely related to underlying stress reaction v infection in this case with fungemia --> have reviewed peripheral smear and bandemia/neutrophilia noted --> continue antibiotics if they have been started by ID team, currently kelvin/ micafungin --> meds have been reviewed --> monitor for resolution --> wbc: 13.5 -->21 --> abx: vanc/kelvin/micafungin # Sickle cell disease/anemia --> needs to be confirmed that actually has sickle cell --> hgb electrophoresis ordered --> smear reviewed --> hgb trend 10 # Thrombocytopenia likely related to infection/acute phase reactant, also may be related to micafungin --> hep and hiv pending --> us abd neg # Hyperproteinmia -- also persistent --> spep to take several days # Tachycardia of unclear nature. There is no clear documentation of atrial fib or supraventricular tachycardia. His echo showed ejection fraction of 65%. --> continue on verapamil 80 mg every 8 hours through G-tube. --> per cards # Hypertension, stable on verapamil. --> as per cards, Dr. Soto # Multiple positive blood cultures for fungi. --> as per id --> meds noted # Dysphagia, status post PEG placement. # History of CVA. # Epilepsy. # Peptic ulcer disease. # Elevated liver function tests The timing of this note does not necessarily reflect the time of the patient was seen. Greatly appreciate consultation. Subjective Constitutional: Denies: no symptoms, chills, fever, malaise, weakness, other HEENT: Denies: no symptoms, eye pain, blurred vision, tearing, double vision, ear pain, ear discharge, nose pain, nose congestion, throat pain, throat swelling, mouth pain, mouth swelling, other Cardiovascular: Denies: no symptoms, chest pain, edema, irregular heart rate, lightheadedness, palpitations, syncope, other Respiratory: Denies: no symptoms, cough, shortness of breath, SOB with excertion, SOB at rest, sputum, wheezing, other Genitourinary: Denies: no symptoms, burning, discharge, frequency, flank pain, hematuria, incontinence, pain, urgency, other Neurologic/Psychiatric: Denies: no symptoms, anxiety, depressed, emotional problems, headache, numbness, paresthesia, pre-existing deficit, seizure, tingling, tremors, weakness, other Endocrine: Denies: no symptoms, excessive sweating, flushing, intolerance to cold, intolerance to heat, increased hunger, increased thirst, increased urine, unexplained weight gain, unexplained weight loss, other Allergies: Coded Allergies: No Known Allergies (Unverified , 04/11/19) Subjective 05/14: awake, nonverbal, no acute events, nc 3l, labs reviewed 05/15: remains obtunded, no bleeding or chills, labs reviewed, worsening, on jevity Objective Objective Current Medications Medications (Trade) Dose Ordered Sig/Kory Route PRN Reason Start Time Stop Time Status Last Admin Dose Admin Acetaminophen (Tylenol) 650 mg Q6H PRN NG Prn Headache/Temp > 101 05/12/19 06:45 06/11/19 06:44 05/15/19 02:30 Dextrose 1,000 ml @ 50 mls/hr Q20H IV 05/11/19 14:00 06/10/19 13:59 05/13/19 05:04 Dextrose (Dextrose 50%) 25 ml Q30M PRN IV Hypoglycemia 05/14/19 05:30 06/13/19 05:29 Dextrose (Dextrose 50%) 50 ml Q30M PRN IV Hypoglycemia 05/14/19 05:30 06/13/19 05:29 Docusate Sodium (Colace) 100 mg TWICE A DAY GT 05/01/19 18:00 05/31/19 17:59 05/14/19 17:53 Insulin Aspart (NovoLOG) Q6HR SUBQ 05/14/19 06:00 06/13/19 05:59 05/15/19 06:27 Lactulose (Cephulac) 10 gm THREE TIMES A DAY GT 05/01/19 13:00 05/31/19 12:59 05/14/19 17:53 Lorazepam (Ativan) 0.5 mg Q6H PRN GT For Anxiety 05/15/19 07:00 05/22/19 06:59 Meropenem 1 gm/ Sodium Chloride 55 ml @ 110 mls/hr Q8HR IVPB 05/10/19 14:00 05/19/19 13:59 05/15/19 06:31 Micafungin Sodium 100 mg/Dextrose 110 ml @ 110 mls/hr Q24H IVPB 04/30/19 12:00 05/16/19 11:59 05/14/19 13:20 Morphine Sulfate (Morphine Sulfate) 4 mg Q4H PRN IVP Moderate to severe Pain 05/10/19 09:15 05/17/19 09:14 05/13/19 18:01 Phenytoin 300 mg/ Sodium Chloride 55 ml @ 110 mls/hr DAILY IV 04/17/19 09:00 05/17/19 08:59 05/14/19 09:02 Polyethylene Glycol (Miralax) 17 gm BEDTIME GT 05/01/19 21:00 05/31/19 20:59 05/14/19 21:23 Sodium Phosphate (Fleet's Sodium Phosl Enema) 133 ml BIDPRN PRN RECTAL Constipation 05/01/19 18:15 05/31/19 18:14 05/01/19 23:17 Vancomycin HCl (Vanco rx to dose) 1 ea DAILY PRN MISC Per rx protocol 05/13/19 10:30 06/12/19 10:29 Vancomycin HCl 750 mg/Sodium Chloride 275 ml @ 184 mls/hr Q12H IVPB 05/15/19 12:00 05/20/19 11:59 Verapamil HCl (Calan) 80 mg EVERY 8 HOURS GT 04/18/19 14:45 05/16/19 14:44 05/13/19 21:32 Last 24 Hour Vital Signs Date Time Temp Pulse Resp B/P (MAP) Pulse Ox O2 Delivery O2 Flow Rate FiO2 05/15/19 04:00 99.3 116 24 95/63 (74) 95 05/15/19 03:00 100.0 05/15/19 00:00 100.0 122 24 96/66 (76) 95 05/14/19 23:18 Nasal Cannula 3.0 05/14/19 21:23 121 110/71 05/14/19 20:20 96 Nasal Cannula 3.0 32 05/14/19 20:00 96.9 123 25 114/66 (82) 96 05/14/19 16:00 97.7 121 20 110/71 (84) 94 05/14/19 14:00 131 109/72 05/14/19 12:00 98.6 131 22 109/72 (84) 94 05/14/19 09:00 Nasal Cannula 3.0 05/14/19 08:00 97.7 126 20 106/71 (83) 93 05/14/19 05:28 129 96/64 05/14/19 04:00 97.7 129 29 96/64 (75) 97 05/14/19 00:00 97.7 134 29 101/66 (78) 99 05/13/19 23:34 Nasal Cannula 3.0 05/13/19 21:32 128 111/71 05/13/19 20:00 98.9 128 25 111/71 (84) 96 05/13/19 16:11 99 Nasal Cannula 3.0 32 05/13/19 16:11 122 24 99 Nasal Cannula 3.0 32 05/13/19 16:00 97.4 124 22 119/89 (99) 95 05/13/19 15:03 124 119/89 05/13/19 12:00 98.7 131 22 122/90 (101) 92 05/13/19 09:00 Nasal Cannula 3.0 05/13/19 08:50 94 Nasal Cannula 3.0 32 Intake and Output 05/14/19 05/15/19 19:00 07:00 Intake Total 1616.666 ml 860 ml Output Total 1600 ml Balance 1616.666 ml -740 ml Intake Oral 0 ml Free Water 200 ml 200 ml IV Total 696.666 ml Tube Feeding 720 ml 660 ml Output Urine Total 1600 ml Labs Test 05/13/19 04:35 05/14/19 06:43 05/14/19 23:40 05/15/19 07:20 White Blood Count 22.9 K/UL (4.8-10.8) 26.6 K/UL (4.8-10.8) 21.3 K/UL (4.8-10.8) Red Blood Count 4.58 M/UL (4.70-6.10) 4.28 M/UL (4.70-6.10) 3.30 M/UL (4.70-6.10) Hemoglobin 14.1 G/DL (14.2-18.0) 13.5 G/DL (14.2-18.0) 10.3 G/DL (14.2-18.0) Hematocrit 40.9 % (42.0-52.0) 38.8 % (42.0-52.0) 29.2 % (42.0-52.0) Mean Corpuscular Volume 89 FL (80-99) 91 FL (80-99) 89 FL (80-99) Mean Corpuscular Hemoglobin 30.7 PG (27.0-31.0) 31.4 PG (27.0-31.0) 31.2 PG (27.0-31.0) Mean Corpuscular Hemoglobin Concent 34.5 G/DL (32.0-36.0) 34.7 G/DL (32.0-36.0) 35.2 G/DL (32.0-36.0) Red Cell Distribution Width 16.9 % (11.6-14.8) 17.0 % (11.6-14.8) 14.8 % (11.6-14.8) Platelet Count 248 K/UL (150-450) 151 K/UL (150-450) 121 K/UL (150-450) Mean Platelet Volume 6.8 FL (6.5-10.1) 8.0 FL (6.5-10.1) 8.6 FL (6.5-10.1) Neutrophils (%) (Auto) % (45.0-75.0) % (45.0-75.0) % (45.0-75.0) Lymphocytes (%) (Auto) % (20.0-45.0) % (20.0-45.0) % (20.0-45.0) Monocytes (%) (Auto) % (1.0-10.0) % (1.0-10.0) % (1.0-10.0) Eosinophils (%) (Auto) % (0.0-3.0) % (0.0-3.0) % (0.0-3.0) Basophils (%) (Auto) % (0.0-2.0) % (0.0-2.0) % (0.0-2.0) Differential Total Cells Counted 100 100 Neutrophils % (Manual) 79 % (45-75) 75 % (45-75) Lymphocytes % (Manual) 12 % (20-45) 15 % (20-45) Monocytes % (Manual) 8 % (1-10) 10 % (1-10) Eosinophils % (Manual) 0 % (0-3) 0 % (0-3) Basophils % (Manual) 1 % (0-2) 0 % (0-2) Band Neutrophils 0 % (0-8) 0 % (0-8) Nucleated Red Blood Cells 3 /100 WBC Platelet Estimate Adequate Adequate Platelet Morphology Normal Normal Target Cells 1+ Sodium Level 156 MMOL/L (136-145) 157 MMOL/L (136-145) 162 MMOL/L (136-145) Potassium Level 4.0 MMOL/L (3.5-5.1) 4.6 MMOL/L (3.5-5.1) 3.6 MMOL/L (3.5-5.1) Chloride Level 116 MMOL/L (98-107) 119 MMOL/L (98-107) 126 MMOL/L (98-107) Carbon Dioxide Level 32 MMOL/L (21-32) 28 MMOL/L (21-32) 28 MMOL/L (21-32) Anion Gap 9 mmol/L (5-15) 10 mmol/L (5-15) 7 mmol/L (5-15) Blood Urea Nitrogen 31 mg/dL (7-18) 36 mg/dL (7-18) 32 mg/dL (7-18) Creatinine 0.9 MG/DL (0.55-1.30) 1.0 MG/DL (0.55-1.30) 0.9 MG/DL (0.55-1.30) Estimat Glomerular Filtration Rate > 60 mL/min (>60) > 60 mL/min (>60) > 60 mL/min (>60) Glucose Level 107 MG/DL (74-106) 114 MG/DL (74-106) 124 MG/DL (74-106) Calcium Level 9.6 MG/DL (8.5-10.1) 9.4 MG/DL (8.5-10.1) 8.7 MG/DL (8.5-10.1) Polychromasia Anisocytosis 1+ Vancomycin Level Trough 28.1 ug/mL (5.0-12.0) Total Bilirubin 0.8 MG/DL (0.2-1.0) Aspartate Amino Transf (AST/SGOT) 63 U/L (15-37) Alanine Aminotransferase (ALT/SGPT) 95 U/L (12-78) Alkaline Phosphatase 80 U/L (46-116) Total Protein 7.4 G/DL (6.4-8.2) Albumin 1.9 G/DL (3.4-5.0) Globulin 5.5 g/dL Albumin/Globulin Ratio 0.3 (1.0-2.7) Height (Feet): 5 Height (Inches): 5.00 Weight (Pounds): 123 Objective PHYSICAL EXAMINATION: VITAL SIGNS: reviewed HEAD AND NECK: Showed no JVD. LUNGS: Coarse rhonchi. CARDIOVASCULAR: Regular S1 and S2 with no gallop or murmur. ABDOMEN: Status post G-tube. EXTREMITIES: No pitting edema. Mitch Pinzon MD May 15, 2019 08:42
--- NOTE | 2019-05-15 08:54 | General Progress Note ---
Assessment/Plan Assessment/Plan: (1) Sacral decubitus ulcer (2) Dementia (3) Encephalopathy (4) Sepsis (5) Cerebral Ataxia (6) Sickle cell disease Pt will be continued on Morphine D/w Dr. Palomino and he concurred. Subjective Date patient seen: May 15, 2019 Time patient seen: 08:30 - am ROS Limited/Unobtainable: Yes Allergies: Coded Allergies: No Known Allergies (Unverified , 04/11/19) Subjective Patient has been showing no signs of pain or distress. Morphine has not been administered in the last 24hrs. Objective Last 24 Hour Vital Signs Date Time Temp Pulse Resp B/P (MAP) Pulse Ox O2 Delivery O2 Flow Rate FiO2 05/15/19 04:00 99.3 116 24 95/63 (74) 95 05/15/19 03:00 100.0 05/15/19 00:00 100.0 122 24 96/66 (76) 95 05/14/19 23:18 Nasal Cannula 3.0 05/14/19 21:23 121 110/71 05/14/19 20:20 96 Nasal Cannula 3.0 32 05/14/19 20:00 96.9 123 25 114/66 (82) 96 05/14/19 16:00 97.7 121 20 110/71 (84) 94 05/14/19 14:00 131 109/72 05/14/19 12:00 98.6 131 22 109/72 (84) 94 05/14/19 09:00 Nasal Cannula 3.0 Intake and Output 05/14/19 05/15/19 19:00 07:00 Intake Total 1616.666 ml 860 ml Output Total 1600 ml Balance 1616.666 ml -740 ml Intake Oral 0 ml Free Water 200 ml 200 ml IV Total 696.666 ml Tube Feeding 720 ml 660 ml Output Urine Total 1600 ml Laboratory Tests 05/14/19 23:40: Vancomycin Level Trough 28.1H 05/15/19 07:20: White Blood Count 21.3H, Red Blood Count 3.30L, Hemoglobin 10.3L, Hematocrit 29.2L, Mean Corpuscular Volume 89, Mean Corpuscular Hemoglobin 31.2H, Mean Corpuscular Hemoglobin Concent 35.2, Red Cell Distribution Width 14.8, Platelet Count 121L, Mean Platelet Volume 8.6, Neutrophils (%) (Auto) , Lymphocytes (%) ( Auto) , Monocytes (%) (Auto) , Eosinophils (%) (Auto) , Basophils (%) (Auto) , Neutrophils % (Manual) [Pending], Lymphocytes % (Manual) [Pending], Platelet Estimate [Pending], Platelet Morphology [Pending], Sodium Level 162*H, Potassium Level 3.6, Chloride Level 126H, Carbon Dioxide Level 28, Anion Gap 7, Blood Urea Nitrogen 32H, Creatinine 0.9, Estimat Glomerular Filtration Rate > 60 , Glucose Level 124H, Calcium Level 8.7, Total Bilirubin 0.8, Aspartate Amino Transf (AST/SGOT) 63H, Alanine Aminotransferase (ALT/SGPT) 95H, Alkaline Phosphatase 80, Total Protein 7.4, Albumin 1.9L, Globulin 5.5, Albumin/Globulin Ratio 0.3L Height (Feet): 5 Height (Inches): 5.00 Weight (Pounds): 123 Objective General Appearance: no apparent distress EENT: normal ENT inspection Neck: non-tender Cardiovascular: normal rate Respiratory/Chest: decreased breath sounds Abdomen: other - Gtube noted Extremities: swelling Edema: trace edema Neurologic: responsive Skin: warm/dry Henrry Allison May 15, 2019 08:54
--- NOTE | 2019-05-15 09:30 | General Progress Note ---
Assessment/Plan Problem List: (1) Pneumonia ICD Codes: J18.9 - Pneumonia, unspecified organism SNOMED: 948731451 (2) Sickle cell anemia ICD Codes: D57.1 - Sickle-cell disease without crisis SNOMED: 207279910 (3) Sepsis ICD Codes: A41.9 - Sepsis, unspecified organism SNOMED: 12936653 Status: unchanged Assessment/Plan: pt diet abx psyc neuro eval cbc bmp am hospice eval if ok w family Subjective Constitutional: Reports: weakness Allergies: Coded Allergies: No Known Allergies (Unverified , 04/11/19) All Systems: reviewed and negative except above Subjective o2nc sleepy calm Objective Last 24 Hour Vital Signs Date Time Temp Pulse Resp B/P (MAP) Pulse Ox O2 Delivery O2 Flow Rate FiO2 05/15/19 08:00 98.6 83 19 118/83 (95) 96 05/15/19 04:00 99.3 116 24 95/63 (74) 95 05/15/19 03:00 100.0 05/15/19 00:00 100.0 122 24 96/66 (76) 95 05/14/19 23:18 Nasal Cannula 3.0 05/14/19 21:23 121 110/71 05/14/19 20:20 96 Nasal Cannula 3.0 32 05/14/19 20:00 96.9 123 25 114/66 (82) 96 05/14/19 16:00 97.7 121 20 110/71 (84) 94 05/14/19 14:00 131 109/72 05/14/19 12:00 98.6 131 22 109/72 (84) 94 Intake and Output 05/14/19 05/15/19 19:00 07:00 Intake Total 1616.666 ml 860 ml Output Total 1600 ml Balance 1616.666 ml -740 ml Intake Oral 0 ml Free Water 200 ml 200 ml IV Total 696.666 ml Tube Feeding 720 ml 660 ml Output Urine Total 1600 ml Laboratory Tests 05/14/19 23:40: Vancomycin Level Trough 28.1H 05/15/19 07:20: White Blood Count 21.3H, Red Blood Count 3.30L, Hemoglobin 10.3L, Hematocrit 29.2L, Mean Corpuscular Volume 89, Mean Corpuscular Hemoglobin 31.2H, Mean Corpuscular Hemoglobin Concent 35.2, Red Cell Distribution Width 14.8, Platelet Count 121L, Mean Platelet Volume 8.6, Neutrophils (%) (Auto) , Lymphocytes (%) ( Auto) , Monocytes (%) (Auto) , Eosinophils (%) (Auto) , Basophils (%) (Auto) , Neutrophils % (Manual) [Pending], Lymphocytes % (Manual) [Pending], Platelet Estimate [Pending], Platelet Morphology [Pending], Sodium Level 162*H, Potassium Level 3.6, Chloride Level 126H, Carbon Dioxide Level 28, Anion Gap 7, Blood Urea Nitrogen 32H, Creatinine 0.9, Estimat Glomerular Filtration Rate > 60 , Glucose Level 124H, Calcium Level 8.7, Total Bilirubin 0.8, Aspartate Amino Transf (AST/SGOT) 63H, Alanine Aminotransferase (ALT/SGPT) 95H, Alkaline Phosphatase 80, Total Protein 7.4, Albumin 1.9L, Globulin 5.5, Albumin/Globulin Ratio 0.3L Height (Feet): 5 Height (Inches): 5.00 Weight (Pounds): 123 General Appearance: lethargic EENT: normal ENT inspection Neck: normal alignment Cardiovascular: normal peripheral pulses, normal rate, regular rhythm Respiratory/Chest: chest wall non-tender, lungs clear, normal breath sounds Abdomen: normal bowel sounds, non tender, soft Extremities: normal inspection Edema: no edema noted Arm (L), no edema noted Arm (R), no edema noted Leg (L), no edema noted Leg (R), no edema noted Pedal (L), no edema noted Pedal (R), no edema noted Generalized Neurologic: motor weakness Skin: normal pigmentation, warm/dry Marito Ortega DO May 15, 2019 09:30
[2019-05-15] MEDS: Docusate 100mg/10ml Liq GT SCH ×2 (09:47→17:19)
[2019-05-15] MEDS: Lactulose 10gm/15ml UDC GT SCH ×3 (09:47→17:19)
[2019-05-15] MEDS: PHENYTOIN IV SCH (09:48)
[2019-05-15] MEDS: NS IV SCH (09:48)
[2019-05-15 10:08] LABS: % IRON SATURATION 27 % (15-50); IRON 34 ug/dL (50-175); TOTAL IRON BINDING CAPACITY 126 ug/dL (250-450)
--- NOTE | 2019-05-15 10:25 | Infectious Diseases Prog Note ---
Assessment/Plan Assessment/Plan Assessment: Sepsis Fungemia- r/o endocardiis Blood Cx 04/22/19 - C. alb Blood Cx 04/25/19 2/2 C. albicns Bcx 04/28, 05/05 neg] Bcx 05/14 p TTE 04/12/19 - No Vegitations PNA -05/14 CXR: Increased interstitial markings. This is nonspecific and may represent bronchitis or interstitial pneumonitis. Subsegmental atelectasis versus infiltrates in bilateral lung bases. - 05/06/19 Sp Cx MDR P.a. (S Imipenem) - 04/22/19 Sp Cx P.a. and acenetobacter -04/16 CXR: Left greater than right bibasilar opacities may represent atelectasis versus pneumonia. Findings are decreased compared to prior exam. -CXR: Left basilar atelectasis and possible consolidation -sp cx PsA (ramirez S) -influenza sc neg -u/a neg -HIV ab sc neg Fever; recurrent Leukocytosis; increasing Gram positive bacteremia- contaminant -04/11 Bcx 05/06 CONS; 04/12 Bcx NTD HTN dysphagia s/p GT cerebellar ataxia seizure disorder Alzheimer's dementia SNF resident Plan: - Meropenem #6 for the P.a. in the sputum - Continue Micafungin #20 -Continue empiric IV vancomycin #3 - 05/07/19 SP Zosyn #12 and Bactrim # - 04/24 SP Meropenem #3 and Vancomycin #3 - 04/22/19 SP Zosyn #3 -04/19 SP Cefepime #9 for PsA PNA -04/18 SP Azithromycin #7/7 -04/16 SP IV Vancomycin #6 -04/11 SP Ceftriaxone x1 -GAGAN recommended if rep status improves and if consistent with goals of care -Monitor CBC/CMP, temperatures -GT care -aspiration precautions -f/u Sp cx, u/a, ucx, Bcx x2, CXR -Now made DNR/DNI Thank you for consulting [facility]. Will continue to follow along with you. Subjective Allergies: Coded Allergies: No Known Allergies (Unverified , 04/11/19) Subjective Tm 100 wbc improving Objective Vital Signs Last 24 Hour Vital Signs Date Time Temp Pulse Resp B/P (MAP) Pulse Ox O2 Delivery O2 Flow Rate FiO2 05/15/19 08:00 98.6 83 19 118/83 (95) 96 05/15/19 07:58 96 Nasal Cannula 3.0 32 05/15/19 04:00 99.3 116 24 95/63 (74) 95 05/15/19 03:00 100.0 05/15/19 00:00 100.0 122 24 96/66 (76) 95 05/14/19 23:18 Nasal Cannula 3.0 05/14/19 21:23 121 110/71 05/14/19 20:20 96 Nasal Cannula 3.0 32 05/14/19 20:00 96.9 123 25 114/66 (82) 96 05/14/19 16:00 97.7 121 20 110/71 (84) 94 05/14/19 14:00 131 109/72 05/14/19 12:00 98.6 131 22 109/72 (84) 94 Height (Feet): 5 Height (Inches): 5.00 Weight (Pounds): 123 Objective GENERAL: Calm in bed, lethargic, confused, and nonverbal. VITAL SIGNS: Temperature 101, pulse 98, respirations 21, and blood pressure 108/74. CARDIOVASCULAR: No murmurs. LUNGS: Poor air exchange. ABDOMEN: Bowel sounds distant. EXTREMITIES: No cyanosis, clubbing, or edema. NEUROLOGIC: The patient is flaccid in bed, not following directions. Laboratory Tests Test 05/14/19 23:40 05/15/19 07:20 05/15/19 09:20 Vancomycin Level Trough 28.1 ug/mL (5.0-12.0) H White Blood Count 21.3 K/UL (4.8-10.8) H Red Blood Count 3.30 M/UL (4.70-6.10) L Hemoglobin 10.3 G/DL (14.2-18.0) L Hematocrit 29.2 % (42.0-52.0) L Mean Corpuscular Volume 89 FL (80-99) Mean Corpuscular Hemoglobin 31.2 PG (27.0-31.0) H Mean Corpuscular Hemoglobin Concent 35.2 G/DL (32.0-36.0) Red Cell Distribution Width 14.8 % (11.6-14.8) Platelet Count 121 K/UL (150-450) L Mean Platelet Volume 8.6 FL (6.5-10.1) Neutrophils (%) (Auto) % (45.0-75.0) Lymphocytes (%) (Auto) % (20.0-45.0) Monocytes (%) (Auto) % (1.0-10.0) Eosinophils (%) (Auto) % (0.0-3.0) Basophils (%) (Auto) % (0.0-2.0) Neutrophils % (Manual) Pending Lymphocytes % (Manual) Pending Platelet Estimate Pending Platelet Morphology Pending Sodium Level 162 MMOL/L (136-145) *H Potassium Level 3.6 MMOL/L (3.5-5.1) Chloride Level 126 MMOL/L (98-107) H Carbon Dioxide Level 28 MMOL/L (21-32) Anion Gap 7 mmol/L (5-15) Blood Urea Nitrogen 32 mg/dL (7-18) H Creatinine 0.9 MG/DL (0.55-1.30) Estimat Glomerular Filtration Rate > 60 mL/min (>60) Glucose Level 124 MG/DL (74-106) H Calcium Level 8.7 MG/DL (8.5-10.1) Total Bilirubin 0.8 MG/DL (0.2-1.0) Aspartate Amino Transf (AST/SGOT) 63 U/L (15-37) H Alanine Aminotransferase (ALT/SGPT) 95 U/L (12-78) H Alkaline Phosphatase 80 U/L (46-116) Total Protein 7.4 G/DL (6.4-8.2) Albumin 1.9 G/DL (3.4-5.0) L Globulin 5.5 g/dL Albumin/Globulin Ratio 0.3 (1.0-2.7) L Prothrombin Time Pending Prothromb Time International Ratio Pending Fibrinogen Pending Iron Level 34 ug/dL (50-175) L Total Iron Binding Capacity 126 ug/dL (250-450) L Percent Iron Saturation 27 % (15-50) Unsaturated Iron Binding 92 ug/dL (112-346) L Ferritin Pending Current Medications Medications (Trade) Dose Ordered Sig/Kory Route PRN Reason Start Time Stop Time Status Last Admin Dose Admin Acetaminophen (Tylenol) 650 mg Q6H PRN NG Prn Headache/Temp > 101 05/12/19 06:45 2/9/20 06:44 05/15/19 02:30 Dextrose 1,000 ml @ 50 mls/hr Q20H IV 05/11/19 14:00 06/10/19 13:59 05/13/19 05:04 Dextrose (Dextrose 50%) 25 ml Q30M PRN IV Hypoglycemia 05/14/19 05:30 06/13/19 05:29 Dextrose (Dextrose 50%) 50 ml Q30M PRN IV Hypoglycemia 05/14/19 05:30 06/13/19 05:29 Docusate Sodium (Colace) 100 mg TWICE A DAY GT 05/01/19 18:00 05/31/19 17:59 05/15/19 09:47 Insulin Aspart (NovoLOG) Q6HR SUBQ 05/14/19 06:00 06/13/19 05:59 05/15/19 06:27 Lactulose (Cephulac) 10 gm THREE TIMES A DAY GT 05/01/19 13:00 05/31/19 12:59 05/15/19 09:47 Lorazepam (Ativan) 0.5 mg Q6H PRN GT For Anxiety 05/15/19 07:00 05/22/19 06:59 Meropenem 1 gm/ Sodium Chloride 55 ml @ 110 mls/hr Q8HR IVPB 05/10/19 14:00 05/19/19 13:59 05/15/19 06:31 Micafungin Sodium 100 mg/Dextrose 110 ml @ 110 mls/hr Q24H IVPB 04/30/19 12:00 05/16/19 11:59 05/14/19 13:20 Morphine Sulfate (Morphine Sulfate) 4 mg Q4H PRN IVP Moderate to severe Pain 05/10/19 09:15 05/17/19 09:14 05/13/19 18:01 Phenytoin 300 mg/ Sodium Chloride 55 ml @ 110 mls/hr DAILY IV 04/17/19 09:00 05/17/19 08:59 05/15/19 09:48 Polyethylene Glycol (Miralax) 17 gm BEDTIME GT 05/01/19 21:00 05/31/19 20:59 05/14/19 21:23 Sodium Phosphate (Fleet's Sodium Phosl Enema) 133 ml BIDPRN PRN RECTAL Constipation 05/01/19 18:15 05/31/19 18:14 05/01/19 23:17 Vancomycin HCl (Vanco rx to dose) 1 ea DAILY PRN MISC Per rx protocol 05/13/19 10:30 06/12/19 10:29 Vancomycin HCl 750 mg/Sodium Chloride 275 ml @ 184 mls/hr Q12H IVPB 05/15/19 12:00 05/20/19 11:59 Verapamil HCl (Calan) 80 mg EVERY 8 HOURS GT 04/18/19 14:45 05/16/19 14:44 05/13/19 21:32 Shirley Cadena M.D. May 15, 2019 10:25
--- NOTE | 2019-05-15 10:35 | GI Progress Note ---
Assessment/Plan Problems: (1) Feeding by G-tube ICD Codes: Z93.1 - Gastrostomy status SNOMED: 810265377, [id number], [id number] (2) Constipated ICD Codes: K59.00 - Constipation, unspecified SNOMED: 96355029 Status: unchanged Status Narrative Discussed with Dr. Esqueda. Assessment/Plan 1. History of CVA. 2. Dysphagia with G-tube. 3. Hypertension. 4. GERD. 5. Epilepsy. 6. Peptic ulcer disease. 7.constipation 8. Elevated LFTS 9. fungemia abd us>>> reviewed>>> gallstones increase free water flushes for hypernatremia laxatives stable H&H hepatitis panel, negative GTF GT care abx per ID repeat LFTs cardiology note appreciated The patient was seen and examined at bedside and all new and available data was reviewed in the patients chart. I agree with the above findings, impression and plan. (Patient seen earlier today. Signature stamp does not reflect patient encounter time.). - Faizan Esqueda MD Subjective Subjective limited Objective Last 24 Hour Vital Signs Date Time Temp Pulse Resp B/P (MAP) Pulse Ox O2 Delivery O2 Flow Rate FiO2 05/15/19 08:00 98.6 83 19 118/83 (95) 96 05/15/19 07:58 96 Nasal Cannula 3.0 32 05/15/19 04:00 99.3 116 24 95/63 (74) 95 05/15/19 03:00 100.0 05/15/19 00:00 100.0 122 24 96/66 (76) 95 05/14/19 23:18 Nasal Cannula 3.0 05/14/19 21:23 121 110/71 05/14/19 20:20 96 Nasal Cannula 3.0 32 05/14/19 20:00 96.9 123 25 114/66 (82) 96 05/14/19 16:00 97.7 121 20 110/71 (84) 94 05/14/19 14:00 131 109/72 05/14/19 12:00 98.6 131 22 109/72 (84) 94 Intake and Output 05/14/19 05/15/19 19:00 07:00 Intake Total 1616.666 ml 860 ml Output Total 1600 ml Balance 1616.666 ml -740 ml Intake Oral 0 ml Free Water 200 ml 200 ml IV Total 696.666 ml Tube Feeding 720 ml 660 ml Output Urine Total 1600 ml Laboratory Tests Test 05/14/19 23:40 05/15/19 07:20 05/15/19 09:20 Vancomycin Level Trough 28.1 ug/mL (5.0-12.0) H White Blood Count 21.3 K/UL (4.8-10.8) H Red Blood Count 3.30 M/UL (4.70-6.10) L Hemoglobin 10.3 G/DL (14.2-18.0) L Hematocrit 29.2 % (42.0-52.0) L Mean Corpuscular Volume 89 FL (80-99) Mean Corpuscular Hemoglobin 31.2 PG (27.0-31.0) H Mean Corpuscular Hemoglobin Concent 35.2 G/DL (32.0-36.0) Red Cell Distribution Width 14.8 % (11.6-14.8) Platelet Count 121 K/UL (150-450) L Mean Platelet Volume 8.6 FL (6.5-10.1) Neutrophils (%) (Auto) % (45.0-75.0) Lymphocytes (%) (Auto) % (20.0-45.0) Monocytes (%) (Auto) % (1.0-10.0) Eosinophils (%) (Auto) % (0.0-3.0) Basophils (%) (Auto) % (0.0-2.0) Neutrophils % (Manual) Pending Lymphocytes % (Manual) Pending Platelet Estimate Pending Platelet Morphology Pending Sodium Level 162 MMOL/L (136-145) *H Potassium Level 3.6 MMOL/L (3.5-5.1) Chloride Level 126 MMOL/L (98-107) H Carbon Dioxide Level 28 MMOL/L (21-32) Anion Gap 7 mmol/L (5-15) Blood Urea Nitrogen 32 mg/dL (7-18) H Creatinine 0.9 MG/DL (0.55-1.30) Estimat Glomerular Filtration Rate > 60 mL/min (>60) Glucose Level 124 MG/DL (74-106) H Calcium Level 8.7 MG/DL (8.5-10.1) Total Bilirubin 0.8 MG/DL (0.2-1.0) Aspartate Amino Transf (AST/SGOT) 63 U/L (15-37) H Alanine Aminotransferase (ALT/SGPT) 95 U/L (12-78) H Alkaline Phosphatase 80 U/L (46-116) Total Protein 7.4 G/DL (6.4-8.2) Albumin 1.9 G/DL (3.4-5.0) L Globulin 5.5 g/dL Albumin/Globulin Ratio 0.3 (1.0-2.7) L Prothrombin Time Pending Prothromb Time International Ratio Pending Fibrinogen Pending Iron Level 34 ug/dL (50-175) L Total Iron Binding Capacity 126 ug/dL (250-450) L Percent Iron Saturation 27 % (15-50) Unsaturated Iron Binding 92 ug/dL (112-346) L Ferritin Pending Height (Feet): 5 Height (Inches): 5.00 Weight (Pounds): 123 General Appearance: no apparent distress, alert Cardiovascular: normal rate Respiratory/Chest: normal breath sounds Abdominal Exam: soft Adna Arora [employer] May 15, 2019 10:35
[2019-05-15 10:51] LABS: INR 1.1 (0.9-1.1)
[2019-05-15 10:53] LABS: FERRITIN 981 NG/ML (8-388)
--- NOTE | 2019-05-15 10:56 | Cardiac Electrophysiology PN ---
Assessment/Plan Assessment/Plan 1. Sinus tachycardia. No fib or SVT. EF 65%. Continue verapamil 80 mg every 8 hours through G-tube. 2. Hypertension, stable on verapamil. 3. Fungemia. Awaiting GAGAN by Dr. Abad after stabilization 4. Dysphagia, status post PEG placement. 5. History of CVA. 6. Epilepsy. 7. Peptic ulcer disease. 8. Elevated liver function tests. SHIRLEY RN Subjective Subjective No new events. GAGAN still pending stabilization. On Vanco and Meropenem Objective Last 24 Hour Vital Signs Date Time Temp Pulse Resp B/P (MAP) Pulse Ox O2 Delivery O2 Flow Rate FiO2 05/15/19 08:00 98.6 83 19 118/83 (95) 96 05/15/19 07:58 96 Nasal Cannula 3.0 32 05/15/19 04:00 99.3 116 24 95/63 (74) 95 05/15/19 03:00 100.0 05/15/19 00:00 100.0 122 24 96/66 (76) 95 05/14/19 23:18 Nasal Cannula 3.0 05/14/19 21:23 121 110/71 05/14/19 20:20 96 Nasal Cannula 3.0 32 05/14/19 20:00 96.9 123 25 114/66 (82) 96 05/14/19 16:00 97.7 121 20 110/71 (84) 94 05/14/19 14:00 131 109/72 05/14/19 12:00 98.6 131 22 109/72 (84) 94 Intake and Output 05/14/19 05/15/19 19:00 07:00 Intake Total 1616.666 ml 860 ml Output Total 1600 ml Balance 1616.666 ml -740 ml Intake Oral 0 ml Free Water 200 ml 200 ml IV Total 696.666 ml Tube Feeding 720 ml 660 ml Output Urine Total 1600 ml Laboratory Tests Test 05/14/19 23:40 05/15/19 07:20 05/15/19 09:20 Vancomycin Level Trough 28.1 ug/mL (5.0-12.0) H White Blood Count 21.3 K/UL (4.8-10.8) H Red Blood Count 3.30 M/UL (4.70-6.10) L Hemoglobin 10.3 G/DL (14.2-18.0) L Hematocrit 29.2 % (42.0-52.0) L Mean Corpuscular Volume 89 FL (80-99) Mean Corpuscular Hemoglobin 31.2 PG (27.0-31.0) H Mean Corpuscular Hemoglobin Concent 35.2 G/DL (32.0-36.0) Red Cell Distribution Width 14.8 % (11.6-14.8) Platelet Count 121 K/UL (150-450) L Mean Platelet Volume 8.6 FL (6.5-10.1) Neutrophils (%) (Auto) % (45.0-75.0) Lymphocytes (%) (Auto) % (20.0-45.0) Monocytes (%) (Auto) % (1.0-10.0) Eosinophils (%) (Auto) % (0.0-3.0) Basophils (%) (Auto) % (0.0-2.0) Neutrophils % (Manual) Pending Lymphocytes % (Manual) Pending Platelet Estimate Pending Platelet Morphology Pending Sodium Level 162 MMOL/L (136-145) *H Potassium Level 3.6 MMOL/L (3.5-5.1) Chloride Level 126 MMOL/L (98-107) H Carbon Dioxide Level 28 MMOL/L (21-32) Anion Gap 7 mmol/L (5-15) Blood Urea Nitrogen 32 mg/dL (7-18) H Creatinine 0.9 MG/DL (0.55-1.30) Estimat Glomerular Filtration Rate > 60 mL/min (>60) Glucose Level 124 MG/DL (74-106) H Calcium Level 8.7 MG/DL (8.5-10.1) Total Bilirubin 0.8 MG/DL (0.2-1.0) Aspartate Amino Transf (AST/SGOT) 63 U/L (15-37) H Alanine Aminotransferase (ALT/SGPT) 95 U/L (12-78) H Alkaline Phosphatase 80 U/L (46-116) Total Protein 7.4 G/DL (6.4-8.2) Albumin 1.9 G/DL (3.4-5.0) L Globulin 5.5 g/dL Albumin/Globulin Ratio 0.3 (1.0-2.7) L Prothrombin Time 11.4 SEC (9.30-11.50) Prothromb Time International Ratio 1.1 (0.9-1.1) Fibrinogen 570 mg/dL (200-400) H Iron Level 34 ug/dL (50-175) L Total Iron Binding Capacity 126 ug/dL (250-450) L Percent Iron Saturation 27 % (15-50) Unsaturated Iron Binding 92 ug/dL (112-346) L Ferritin Pending Objective HEAD AND NECK: No JVD. LUNGS: Coarse rhonchi. CARDIOVASCULAR: Regular S1 and S2 with no gallop or murmur. ABDOMEN: Status post G-tube. EXTREMITIES: No pitting edema. Kyree Soto MD May 15, 2019 10:56
--- NOTE | 2019-05-15 11:22 | NUR ---
NURSE NOTES: ALFRED CEDILLO, MADE AWARE OF SODIUM LEVEL 162 TODAY, WITH ORDER TO INCREASE GTUBE FLUSH TO 200CC Q6H. ORDER ENTERED.
[2019-05-15] MEDS: Micafungin 100 MG in D5W 110 ML IVPB SCH (11:29)
[2019-05-15 12:00] VITALS: BP 106/72
--- NOTE | 2019-05-15 12:11 | Consultation ---
Consult Note Consult Note asked to eval for hypernatremia chart reviewed patient lethargic examined admitted 34 days ago Assessment/Plan HyperNatremia due to free water deficit Sepsis- Fungemia- Pneumonia PEG History of Alzheimer's dementia. Cerebellar ataxia. History of CVA. History of hypertension. Epilepsy. Anemia Malnurtition D5W 125 cc hour Monitor lytes and dilantin level per ID and consultants Urine studies Gavino Rushing MD May 15, 2019 12:11
[2019-05-15] MEDS: Vancomycin 750 MG in NS 275 ML IVPB SCH (12:30)
[2019-05-15 13:03] LABS: APPEARANCE,URINE CLEAR; BILIRUBIN, URINE NEGATIVE (NEGATIVE); COLOR,URINE YELLOW; GLUCOSE, URINE (UA) NEGATIVE (NEGATIVE); KETONES,URINE NEGATIVE (NEGATIVE); LEUKOCYTE ESTERASE ,URINE NEGATIVE (NEGATIVE); NITRITE,URINE NEGATIVE (NEGATIVE); PH,URINE 6.5 (4.5-8.0); PROTEIN,URINE 3+ (NEGATIVE); UROBILINOGEN,URINE NORMAL MG/DL (0.0-1.0)
--- NOTE | 2019-05-15 13:43 | Pulmonology Progress Note ---
Assessment/Plan Problems: (1) Fungemia (2) Sepsis (3) Nosocomial pneumonia (4) Chronic tachycardia (5) Epilepsy (6) Hereditary cerebellar ataxia (7) Cavitary lung disease (8) PW-Bmtdulh-Zhlvmr disease (9) Feeding by G-tube Assessment/Plan respiratory status worse iv abx symptomatic treatment feeding by Gtube aspiration precaution Verapamil for chronic tachycardia, double the dose since, heart rate is low 100 monitor heart rate prbc prn Hem< 8 dvt prophylaxis. reviewed echo: normal EF D/W brother this morning. I made him aware of the worsening medical condition and respiratory condition. He agreed with DNR and will start the arrangement. Subjective ROS Limited/Unobtainable: Yes Constitutional: Reports: no symptoms HEENT: Repors: no symptoms Allergies: Coded Allergies: No Known Allergies (Unverified , 04/11/19) Objective Last 24 Hour Vital Signs Date Time Temp Pulse Resp B/P (MAP) Pulse Ox O2 Delivery O2 Flow Rate FiO2 05/15/19 12:00 98.4 108 18 106/72 (83) 98 05/15/19 09:00 Nasal Cannula 3.0 05/15/19 08:00 98.6 83 19 118/83 (95) 96 05/15/19 07:58 96 Nasal Cannula 3.0 32 05/15/19 04:00 99.3 116 24 95/63 (74) 95 05/15/19 03:00 100.0 05/15/19 00:00 100.0 122 24 96/66 (76) 95 05/14/19 23:18 Nasal Cannula 3.0 05/14/19 21:23 121 110/71 05/14/19 20:20 96 Nasal Cannula 3.0 32 05/14/19 20:00 96.9 123 25 114/66 (82) 96 05/14/19 16:00 97.7 121 20 110/71 (84) 94 05/14/19 14:00 131 109/72 Intake and Output 05/14/19 05/15/19 19:00 07:00 Intake Total 1616.666 ml 860 ml Output Total 1600 ml Balance 1616.666 ml -740 ml Intake Oral 0 ml Free Water 200 ml 200 ml IV Total 696.666 ml Tube Feeding 720 ml 660 ml Output Urine Total 1600 ml Objective General Appearance: no acute distress HEENT: normocephalic, anicteric Respiratory/Chest: chest wall non-tender, rhonchi Cardiovascular: normal peripheral pulses, normal rate, regular rhythm Abdomen: normal bowel sounds, soft, non tender Genitourinary: normal external genitalia Extremities: no cyanosis Laboratory Tests 05/14/19 23:40: Vancomycin Level Trough 28.1H 05/15/19 07:20: White Blood Count 21.3H, Red Blood Count 3.30L, Hemoglobin 10.3L, Hematocrit 29.2L, Mean Corpuscular Volume 89, Mean Corpuscular Hemoglobin 31.2H, Mean Corpuscular Hemoglobin Concent 35.2, Red Cell Distribution Width 14.8, Platelet Count 121L, Mean Platelet Volume 8.6, Neutrophils (%) (Auto) , Lymphocytes (%) ( Auto) , Monocytes (%) (Auto) , Eosinophils (%) (Auto) , Basophils (%) (Auto) , Differential Total Cells Counted 100, Neutrophils % (Manual) 93H, Lymphocytes % (Manual) 6L, Monocytes % (Manual) 1, Eosinophils % (Manual) 0, Basophils % ( Manual) 0, Band Neutrophils 0, Nucleated Red Blood Cells 3, Platelet Estimate DecreasedL, Platelet Morphology Normal, Target Cells 1+, Sodium Level 162*H, Potassium Level 3.6, Chloride Level 126H, Carbon Dioxide Level 28, Anion Gap 7, Blood Urea Nitrogen 32H, Creatinine 0.9, Estimat Glomerular Filtration Rate > 60 , Glucose Level 124H, Calcium Level 8.7, Total Bilirubin 0.8, Aspartate Amino Transf (AST/SGOT) 63H, Alanine Aminotransferase (ALT/SGPT) 95H, Alkaline Phosphatase 80, Total Protein 7.4, Albumin 1.9L, Globulin 5.5, Albumin/Globulin Ratio 0.3L 05/15/19 09:20: Prothrombin Time 11.4, Prothromb Time International Ratio 1.1, Fibrinogen 570H, Iron Level 34L, Total Iron Binding Capacity 126L, Percent Iron Saturation 27, Unsaturated Iron Binding 92L, Ferritin 981H 05/15/19 12:40: Urine Color Yellow, Urine Appearance Clear, Urine pH 6.5, Urine Specific [place] 1.010, Urine Protein 3+H, Urine Glucose (UA) Negative, Urine Ketones Negative, Urine Blood 4+H, Urine Nitrite Negative, Urine Bilirubin Negative, Urine Urobilinogen Normal, Urine Leukocyte Esterase Negative, Urine RBC 10-15H, Urine WBC 0-2, Urine Squamous Epithelial Cells Occasional, Urine Bacteria Few, Urine Mucus FewH, Urine Random Sodium 43 Current Medications Medications (Trade) Dose Ordered Sig/Kory Route PRN Reason Start Time Stop Time Status Last Admin Dose Admin Acetaminophen (Tylenol) 650 mg Q6H PRN NG Prn Headache/Temp > 101 05/12/19 06:45 06/11/19 06:44 05/15/19 02:30 Dextrose 1,000 ml @ 125 mls/hr Q8H IV 05/15/19 12:15 06/10/19 12:14 05/15/19 12:23 Dextrose (Dextrose 50%) 25 ml Q30M PRN IV Hypoglycemia 05/14/19 05:30 06/13/19 05:29 Dextrose (Dextrose 50%) 50 ml Q30M PRN IV Hypoglycemia 05/14/19 05:30 06/13/19 05:29 Docusate Sodium (Colace) 100 mg TWICE A DAY GT 05/01/19 18:00 05/31/19 17:59 05/15/19 09:47 Insulin Aspart (NovoLOG) Q6HR SUBQ 05/14/19 06:00 06/13/19 05:59 05/15/19 12:26 Lactulose (Cephulac) 10 gm THREE TIMES A DAY GT 05/01/19 13:00 05/31/19 12:59 05/15/19 09:47 Lorazepam (Ativan) 0.5 mg Q6H PRN GT For Anxiety 05/15/19 07:00 05/22/19 06:59 Meropenem 1 gm/ Sodium Chloride 55 ml @ 110 mls/hr Q8HR IVPB 05/10/19 14:00 05/19/19 13:59 05/15/19 06:31 Micafungin Sodium 100 mg/Dextrose 110 ml @ 110 mls/hr Q24H IVPB 04/30/19 12:00 05/16/19 11:59 05/15/19 11:29 Morphine Sulfate (Morphine Sulfate) 4 mg Q4H PRN IVP Moderate to severe Pain 05/10/19 09:15 05/17/19 09:14 05/13/19 18:01 Phenytoin 300 mg/ Sodium Chloride 55 ml @ 110 mls/hr DAILY IV 04/17/19 09:00 05/17/19 08:59 05/15/19 09:48 Polyethylene Glycol (Miralax) 17 gm BEDTIME GT 05/01/19 21:00 05/31/19 20:59 05/14/19 21:23 Sodium Phosphate (Fleet's Sodium Phosl Enema) 133 ml BIDPRN PRN RECTAL Constipation 05/01/19 18:15 05/31/19 18:14 05/01/19 23:17 Vancomycin HCl (Vanco rx to dose) 1 ea DAILY PRN MISC Per rx protocol 05/13/19 10:30 06/12/19 10:29 Vancomycin HCl 750 mg/Sodium Chloride 275 ml @ 184 mls/hr Q12H IVPB 05/15/19 12:00 05/20/19 11:59 05/15/19 12:30 Verapamil HCl (Calan) 80 mg EVERY 8 HOURS GT 04/18/19 14:45 05/16/19 14:44 05/13/19 21:32 Carlos Sauer MD May 15, 2019 13:43
--- NOTE | 2019-05-15 14:44 | NUR ---
RD ASSESSMENT & RECOMMENDATIONS SEE CARE ACTIVITY FOR COMPLETE ASSESSMENT DAILY ESTIMATED NEEDS: Needs based on Severely underweight/ 45kg 35-40 kcals/kg 2562-4698 total kcals 1.5-2.0 g protein/kg 67-90 g total protein 25-35 mL/kg 9076-2036 total fluid mLs NUTRITION DIAGNOSIS: * Increased kcal/prot needs R/T severely underweight status and wt loss as evidenced by pt ~67% IBW, BMI of 15.5, w/ severe generalized wasting, possible significant wt loss of 50lbs/33% in <8 months as per report. 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 CURRENT TF:Jevity 1.2 @ 60ml/hr x 24 hrs ENTERAL NUTRITION RECOMMENDATIONS: Jevity 1.2 @ 60ml/hr x 24 hrs to provide 1440ml, 1728kcal, 80g prot, 1162ml free water * Maintain current TF @goal rate of 60ml/hr x 24 hrs as tolerated * HOB over 30 degrees * Flush per MD. HOB over 30 degrees-> now w/ added flush of 200ml q6 hrs for added 800ml free water per day. ADDITIONAL RECOMMENDATIONS: * Calibrated bedscale wt for accurate CBW -> weekly wt monitoring given h/o wt loss, severely underweight * Monitor lytes daily, replete as needed-> lytes wnl * REC BOWEL REGIMEN-> now on colace, lactulose, ducolax * Skin integrity: Add UMER in 4oz H2O BID via GT prophy * Rec to DC Novolog SSI to prevent hypoglycemia. -> continue w/ accucheck for close BG monitoring
--- NOTE | 2019-05-15 15:45 | Progress Note ---
DATE: 05/15/2019 SUBJECTIVE: This is a 43-year-old male patient, who is admitted because of sepsis, but he also has pneumonia, sickle cell, sepsis, and epilepsy. All these medical illnesses are causing him to have continued mood lability and decline in cognition below his baseline. That is why, his attending physician has requested daily psychiatric consultation. MENTAL STATUS EXAMINATION: This is a 43-year-old male. Appearance is disheveled. Attitude, irritable and agitated. Affect, guarded and restricted. Intellect, poor. Mood, depressed and anxious. Motor activity, psychomotor agitation. Attention span is poor. Orientation x2. Speech is nonverbal. Thought process, disorganized and illogical. Insight and judgment is poor. DIAGNOSIS: Major depressive disorder, mild, recurrent with psychotic features. PLAN: Plan is to treat him with a psychiatric medication regimen of Ativan 0.5 mg per G-tube as needed for anxiety and agitation. He will be continue to be followed by Psychiatry throughout his hospital course . Chart reviewed. Discussed with staff. The patient is seen and assessed at bedside. Behavioral management provided. Osbaldo Bird M.D. DR: SAMI JOB#: [id number] CC:
[2019-05-15 16:00] VITALS: BP 105/72
--- NOTE | 2019-05-15 17:45 | NUR ---
CASE MANAGEMENT:NOTE SPOKE WITH PATIENTS BROTHER ELIEZER WALDRON DISCUSSED PLAN TO DC PT UNDER HOSPICE CARE. BROTHER AGREED TO HOSPICE BUT WANTS PATIENT TO RETURN HOME TO [place]. PATIENT REFERRED TO [facility]. PER HARRIET, THEY DO NOT SERVICE [facility]. CALL BACK TO [facility] WITH NO ANSWER. VM LEFT COMMUNICATED WITH DR. MCDANIELS. OK TO DC TO [facility] UNDER HOSPICE CARE. WILL FOLLOW UP IN AM.
--- NOTE | 2019-05-15 19:29 | NUR ---
NURSE NOTES: RECEIVED CALL FROM PRODUCTION AIDE, JACOB. PT'S FAMILY WOULD LIKE TO PLACE PT ON HOSPICE CLOSER TO HOME IN [place]. [facility] PT'S FAMILY FINDS A HOSPICE SERVICE CLOSER TO [place]. WILL ENDORSE TO NEXT RN.
--- NOTE | 2019-05-15 19:30 | NUR ---
HAND-OFF: Report given to Regina NARANJO RN.
--- NOTE | 2019-05-15 19:57 | NUR ---
NURSE NOTES: Received patient awake in bed, aunt Dino at the bedside, performed oral care per patient family's request. IV access patent, ruinning IVF maintenance, new IVF orders noted and will carry out. Garcia patent draining clear yellow fluid. Bed low and locked, patient on P200 mattress, 3 side rails up.
[2019-05-15 20:00] VITALS: BP 115/75
[2019-05-15] MEDS: Miralax 17gm pkt GT SCH (21:00)
[2019-05-16] VITALS: BP 112/74
[2019-05-16] MEDS: Vancomycin 750 MG in NS 275 ML IVPB SCH ×2
[2019-05-16] MEDS: NovoLOG Insulin Flexpen SUBQ SCH (01:02)
[2019-05-16] MEDS: Acetaminophen 650mg/20.3ml NG PRN (03:08)
[2019-05-16 04:00] VITALS: BP 114/75
--- NOTE | 2019-05-16 05:30 | NUR ---
NURSE NOTES: Patient today at 0500, pronounced by Lily Lemon. Next of kin, Salomón, contacted and left a message. Dr Ortega notified through physician exchange. One legacy notified, please refer to paper "Record of " in patient chart. Patient cleaned, IV access an Addendum: 05/16/19 at 0553 by Penelope Kay RN (cont.) IV access removed, G-tube in place, key catheter removed. Patient is DNR/DNI.
--- NOTE | 2019-05-16 06:59 | NUR ---
PRONOUNCEMENT: No Code. Called to pronounce patient. Absence of spontaneous respirations, no cardiac or breath sounds on auscultation. Pupils fixed and dilated. No carotid pulse or chest movement. Patient at 0500. DR ARSLAN JR notified PER EDUAR NARANJO. Family was notified at 0530-ELIEZER VANITA,BROTHER.
--- NOTE | 2019-05-16 08:56 | General Progress Note ---
Subjective Allergies: Coded Allergies: No Known Allergies (Unverified , 04/11/19) Henrry Allison May 16, 2019 08:56
--- NOTE | 2019-05-16 10:06 | Infectious Diseases Prog Note ---
Assessment/Plan Assessment/Plan Assessment: Sepsis Fungemia- r/o endocardiis Blood Cx 04/22/19 - C. alb Blood Cx 04/25/19 2/2 C. albicns Bcx 04/28, 05/05 neg Bcx 05/14 NTD TTE 04/12/19 - No Vegitations PNA -05/14 CXR: Increased interstitial markings. This is nonspecific and may represent bronchitis or interstitial pneumonitis. Subsegmental atelectasis versus infiltrates in bilateral lung bases. - 05/06/19 Sp Cx MDR P.a. (S Imipenem) - 04/22/19 Sp Cx P.a. and acenetobacter -04/16 CXR: Left greater than right bibasilar opacities may represent atelectasis versus pneumonia. Findings are decreased compared to prior exam. -CXR: Left basilar atelectasis and possible consolidation -sp cx PsA (ramirez S) -influenza sc neg -u/a neg -HIV ab sc neg Fever; recurrent Leukocytosis; increased, now improving -05/15 u/a neg Gram positive bacteremia- contaminant -04/11 Bcx 05/06 CONS; 04/12 Bcx NTD HTN dysphagia s/p GT cerebellar ataxia seizure disorder Alzheimer's dementia SNF resident Plan: - Meropenem #11/09 for the P.a. in the sputum - Continue Micafungin # -Continue empiric IV vancomycin #4 pending sp cx - 05/07/19 SP Zosyn #12 and Bactrim # - 04/24 SP Meropenem #3 and Vancomycin #3 - 04/22/19 SP Zosyn #3 -04/19 SP Cefepime #9 for PsA PNA -04/18 SP Azithromycin #7/7 -04/16 SP IV Vancomycin #6 -04/11 SP Ceftriaxone x1 -GAGAN recommended if rep status improves and if consistent with goals of care -Monitor CBC/CMP, temperatures -GT care -aspiration precautions -f/u Sp cx, ucx, Bcx x2 -Now made DNR/DNI Thank you for consulting [facility]. Will continue to follow along with you. Subjective Allergies: Coded Allergies: No Known Allergies (Unverified , 04/11/19) Subjective Tm 100 wbc improving Bcx NTD Objective Vital Signs Last 24 Hour Vital Signs Date Time Temp Pulse Resp B/P (MAP) Pulse Ox O2 Delivery O2 Flow Rate FiO2 05/16/19 04:00 98.0 112 25 114/75 (88) 94 05/16/19 03:38 98.9 05/16/19 00:00 100.0 111 26 112/74 (87) 94 05/15/19 22:12 Nasal Cannula 3.0 05/15/19 20:00 99.8 107 25 115/75 (88) 95 05/15/19 19:58 95 Nasal Cannula 3.0 32 05/15/19 16:00 98.9 108 20 105/72 (83) 95 05/15/19 13:56 108 106/72 05/15/19 12:00 98.4 108 18 106/72 (83) 98 Height (Feet): 5 Height (Inches): 5.00 Weight (Pounds): 123 Objective GENERAL: Calm in bed, lethargic, confused, and nonverbal. VITAL SIGNS: Temperature 101, pulse 98, respirations 21, and blood pressure 108/74. CARDIOVASCULAR: No murmurs. LUNGS: Poor air exchange. ABDOMEN: Bowel sounds distant. EXTREMITIES: No cyanosis, clubbing, or edema. NEUROLOGIC: The patient is flaccid in bed, not following directions. Microbiology Date/Time Source Procedure Growth Status 05/14/19 10:50 Blood Blood Culture - Preliminary NO GROWTH AFTER 24 HOURS Resulted 05/14/19 10:40 Blood Blood Culture - Preliminary NO GROWTH AFTER 24 HOURS Resulted Laboratory Tests Test 05/15/19 12:40 Urine Color Yellow Urine Appearance Clear Urine pH 6.5 (4.5-8.0) Urine Specific [place] 1.010 (1.005-1.035) Urine Protein 3+ (NEGATIVE) H Urine Glucose (UA) Negative (NEGATIVE) Urine Ketones Negative (NEGATIVE) Urine Blood 4+ (NEGATIVE) H Urine Nitrite Negative (NEGATIVE) Urine Bilirubin Negative (NEGATIVE) Urine Urobilinogen Normal MG/DL (0.0-1.0) Urine Leukocyte Esterase Negative (NEGATIVE) Urine RBC 10-15 /HPF (0 - 0) H Urine WBC 0-2 /HPF (0 - 0) Urine Squamous Epithelial Cells Occasional /LPF Urine Bacteria Few /HPF (NONE) Urine Mucus Few /LPF (NONE/OCC) H Urine Random Sodium 43 mmol/L (20-110) Current Medications Medications (Trade) Dose Ordered Sig/Kory Route PRN Reason Start Time Stop Time Status Last Admin Dose Admin Acetaminophen (Tylenol) 650 mg Q6H PRN NG Prn Headache/Temp > 101 05/12/19 06:45 06/11/19 06:44 05/16/19 03:08 Dextrose 1,000 ml @ 125 mls/hr Q8H IV 05/15/19 12:15 06/10/19 12:14 05/15/19 17:37 Dextrose (Dextrose 50%) 25 ml Q30M PRN IV Hypoglycemia 05/14/19 05:30 06/13/19 05:29 Dextrose (Dextrose 50%) 50 ml Q30M PRN IV Hypoglycemia 05/14/19 05:30 06/13/19 05:29 Docusate Sodium (Colace) 100 mg TWICE A DAY GT 05/01/19 18:00 05/31/19 17:59 05/15/19 17:19 Insulin Aspart (NovoLOG) Q6HR SUBQ 05/14/19 06:00 06/13/19 05:59 05/16/19 01:02 Lactulose (Cephulac) 10 gm THREE TIMES A DAY GT 05/01/19 13:00 05/31/19 12:59 05/15/19 17:19 Lorazepam (Ativan) 0.5 mg Q6H PRN GT For Anxiety 05/15/19 07:00 05/22/19 06:59 Meropenem 1 gm/ Sodium Chloride 55 ml @ 110 mls/hr Q8HR IVPB 05/10/19 14:00 05/19/19 13:59 05/15/19 21:21 Micafungin Sodium 100 mg/Dextrose 110 ml @ 110 mls/hr Q24H IVPB 04/30/19 12:00 05/22/19 11:59 05/15/19 11:29 Morphine Sulfate (Morphine Sulfate) 4 mg Q4H PRN IVP Moderate to severe Pain 05/10/19 09:15 05/17/19 09:14 05/13/19 18:01 Phenytoin 300 mg/ Sodium Chloride 55 ml @ 110 mls/hr DAILY IV 04/17/19 09:00 05/17/19 08:59 05/15/19 09:48 Polyethylene Glycol (Miralax) 17 gm BEDTIME GT 05/01/19 21:00 05/31/19 20:59 05/15/19 21:00 Sodium Phosphate (Fleet's Sodium Phosl Enema) 133 ml BIDPRN PRN RECTAL Constipation 05/01/19 18:15 05/31/19 18:14 05/01/19 23:17 Vancomycin HCl (Vanco rx to dose) 1 ea DAILY PRN MISC Per rx protocol 05/13/19 10:30 06/12/19 10:29 Vancomycin HCl 750 mg/Sodium Chloride 275 ml @ 184 mls/hr Q12H IVPB 05/15/19 12:00 05/20/19 11:59 05/16/19 00:00 Verapamil HCl (Calan) 80 mg EVERY 8 HOURS GT 04/18/19 14:45 05/16/19 14:44 05/13/19 21:32 Shirley Cadena M.D. May 16, 2019 10:06
--- NOTE | 2019-05-16 12:06 | General Progress Note ---
Assessment/Plan Assessment/Plan: 1. History of CVA. 2. Dysphagia with G-tube. 3. Hypertension. 4. GERD. 5. Epilepsy. 6. Peptic ulcer disease. 7.constipation 8. Elevated LFTS 9. fungemia patient hospice , will sign off Subjective ROS Limited/Unobtainable: No Allergies: Coded Allergies: No Known Allergies (Unverified , 04/11/19) Objective Last 24 Hour Vital Signs Date Time Temp Pulse Resp B/P (MAP) Pulse Ox O2 Delivery O2 Flow Rate FiO2 05/16/19 04:00 98.0 112 25 114/75 (88) 94 05/16/19 03:38 98.9 05/16/19 00:00 100.0 111 26 112/74 (87) 94 05/15/19 22:12 Nasal Cannula 3.0 05/15/19 20:00 99.8 107 25 115/75 (88) 95 05/15/19 19:58 95 Nasal Cannula 3.0 32 05/15/19 16:00 98.9 108 20 105/72 (83) 95 05/15/19 13:56 108 106/72 Intake and Output 05/15/19 05/16/19 19:00 07:00 Intake Total 2360 ml 800 ml Balance 2360 ml 800 ml Free Water 490 ml 200 ml IV Total 1150 ml Tube Feeding 720 ml 600 ml Laboratory Tests 05/15/19 12:40: Urine Color Yellow, Urine Appearance Clear, Urine pH 6.5, Urine Specific [place] 1.010, Urine Protein 3+H, Urine Glucose (UA) Negative, Urine Ketones Negative, Urine Blood 4+H, Urine Nitrite Negative, Urine Bilirubin Negative, Urine Urobilinogen Normal, Urine Leukocyte Esterase Negative, Urine RBC 10-15H, Urine WBC 0-2, Urine Squamous Epithelial Cells Occasional, Urine Bacteria Few, Urine Mucus FewH, Urine Random Sodium 43 Height (Feet): 5 Height (Inches): 5.00 Weight (Pounds): 123 EENT: normal ENT inspection Neck: supple Cardiovascular: normal rate Respiratory/Chest: decreased breath sounds Abdomen: normal bowel sounds, non tender, soft Extremities: non-tender Faizan Esqueda MD May 16, 2019 12:06
--- NOTE | 2019-05-18 10:08 | Discharge Summary ---
Discharge Summary Discharge Summary _ SUMMARY DATE OF ADMISSION: 04/11/2019 DATE OF EXPIRATION: 05/16/2019 REASON FOR ADMISSION: 43 years old male with past medical history of sickle cell disease, Ray- Julio disease, seizure disorder, hereditary cerebellar ataxia, bedbound ,m dysphagia feeding by G-tube , essential hypertension , [facility] with chief complaint of fever. At the facility patient also noted to have cough and was short of breath. Upon evaluation patient was febrile , tachycardic, tachypneic and required supplemental oxygen to maintain appropriate oxygenation. Laboratory work-up revealed leukocytosis with WBC 16.5 , stable hemoglobin , hematocrit and platelet count. Stable electrolytes and renal parameters. Glucose 101. Lactic acid 0.7. Stable LFT. Troponin negative ; pro BNP 46. EKG revealed sinus tachycardia, no acute ischemic changes. Albumin 2.7. Urinalysis revealed +2 protein , no evidence of urinary tract infection. Chest x-ray revealed left lower lobe pneumonia. Septic work-up initiated in the emergency room . Patient pancultured, started on empiric antibiotic, IV fluids and admitted for further management. CONSULTANTS: supervisor bakery sanitation Dr. Parish neurologist Dr. Wick pulmonary Dr. Sauer ID specialist Dr. Cadena GI specialist Dr. Esqueda nylon mender Dr. Rushing assignment clerk/oncologist Dr. Pinzon pain specialist Dr. Palomino psychiatrist Dr. Bird [facility]SE: Patient admitted and started on empiric antibiotics. ID specialist followed. Supplemental oxygen provided and titrated to keep pulse oximetry above 92%. Bronchodilator treatment via HHN provided. Strict aspiration precaution maintained. G-tube feeding continued with tube feeding formula and goal rate as per sales order processor recommendation. Protein supplements implemented in plan care. Sputum culture revealed Pseudomonas. Initial blood culture revealed staph coagulase negative. Repeated blood cultures were negative. Initial positive blood culture were likely contaminant. Antibiotic regimen was optimized as per ID specialist recommendation. Blood cultures were later repeated given worsening leukocytosis and fevers. Repeated sputum culture still revealed Pseudomonas and Acinetobacter complex MDR. Blood culture showed Meche on 04/22 and 04/25. Antibiotic regimen was further optimized as per ID specialist with addition of antifungal. Blood culture repeated on 04/28 , 05/05 and on 05/14 were negative. Repeated sputum culture on 05/06 still revealed Pseudomonas. Patient was followed up with chest x-ray. Meticulous r pulmonary toilet provided. ID specialist recommended GAGAN if no improvement in status. Echocardiogram demonstrated preserved ejection fraction of 55 to 60% , no evidence of pericardial effusion. Right ventricular systolic pressure of 15. Echocardiogram revealed no evidence of vegetation. GAGAN was scheduled on 05/05 , but was canceled since patient was unstable. Blood pressure was managed with verapamil , remained stable. Telemetry showed sinus tachycardia, no atrial fibrillation or SVT. DVT prophylaxis provided. Neurologist followed. Per neurologist, patient had dysarthria ,dysphagia along with metabolic encephalopathy and dementia with cognitive impairment. Metabolic encephalopathy was due to sepsis. Patient subsequently undergone EEG , which revealed encephalopathy of severe degree. Seizure precaution maintained. Dilantin continued. GI specialist followed. Hemoglobin and hematocrit remained stable. Noted elevated. LFTs. Hepatitis panel was negative. HIV test was nonreactive. Abdominal ultrasound revealed gallstones. No evidence of dilated bile ducts. Slightly increased bilateral renal echogenicity likely indicating medical renal disease. Bowel regimen instituted. \GI prophylaxis provided. Renal parameters and electrolytes were closely monitored, electrolytes corrected as needed, creatinine remained stable. Hypernatremia was likely due to free water deficit as per nylon mender. Patient started on IV fluids with D5 water. Urine studies were ordered. Laser Technician followed. Hemoglobin electrophoresis was ordered by assignment clerk. Counts were closely monitored. Supportive care provided. Pain management was addressed as per pain specialist recommendation Psychiatrist followed. Psychiatric medication regimen was optimized. Behavioral management provided. The previous patient condition continue to deteriorate. He remained altered. Leukocytosis up to 21.3 , hemoglobin hematocrit and platelet count trending down. Respiratory status worsened along with general medical condition. Poor prognosis was discussed with patient's brother who agreed with DNR / DNI status. CODE STATUS was changed to DNR/DNI on 05/14. Unfortunately patient's condition continued to be rapidly deteriorating. Patient was pronounced at 5 AM 05/16/2019 . Cause of : cardiopulmonary arrest FINAL DIAGNOSES: Sepsis Fungemia Pseudomonas pneumonia Severe metabolic encephalopathy Seizure disorder Hereditary cerebellar ataxia Dysphagia, feeding by G-tube Sinus tachycardia Hypertension Cerebellar ataxia History of CVA Hypernatremia Malnutrition Sickle cell disease anemia Seizure disorder Peptic ulcer disease Elevated LFT Major depressive disorder mild, recurrent with psychotic features Lizzette Balderas NP May 18, 2019 10:08
== END 2019-05-16 08:00 | disposition expired | DRG 871 ==
LOC: EDBD 10:46 → EMR 12:06 → 2E 12:28 → EDBEDREQ 12:54 → 4E 04-16 13:56
DX: A41.9 Sepsis, unspecified organism (principal); G93.41 Metabolic encephalopathy; J15.1 Pneumonia due to Pseudomonas; J98.11 Atelectasis; G11.2 Late-onset cerebellar ataxia; F33.3 Major depressive disorder, recurrent, severe with psychotic symptoms; B49 Unspecified mycosis; E87.0 Hyperosmolality and hypernatremia; R64 Cachexia; E46 Unspecified protein-calorie malnutrition; D57.1 Sickle-cell disease without crisis; G40.909 Epilepsy, unspecified, not intractable, without status epilepticus; Y95 Nosocomial condition; Z93.1 Gastrostomy status; G30.9 Alzheimer's disease, unspecified; F02.80 Dementia in other diseases classified elsewhere, unspecified severity, without behavioral disturbance, psychotic disturbance, mood disturbance, and anxiety; D64.9 Anemia, unspecified; I10 Essential (primary) hypertension; R13.10 Dysphagia, unspecified; J98.4 Other disorders of lung; R47.1 Dysarthria and anarthria; F25.0 Schizoaffective disorder, bipolar type; L89.159 Pressure ulcer of sacral region, unspecified stage; K59.00 Constipation, unspecified; E88.09 Other disorders of plasma-protein metabolism, not elsewhere classified; Z74.01 Bed confinement status; Z66 Do not resuscitate
CPT/HCPCS: 36415; 36600; 51702; 71045; 74018; 76700; 80048; 80053; 80202; 81001; 81003; 82550; 82553; 82607; 82728; 82803; 82962; 83020; 83540; 83550; 83605; 83690; 83735; 83880; 83921; 84100; 84165; 84300; 84484; 85007; 85025; 85060; 85384; 85610; 85651; 86140; 86703; 86705; 86709; 86710; 86803; 87040; 87070; 87081; 87181; 87205; 87340; 93005; 93306; 94640; 94664; 95819; 96365; 96368; 97803; 99285; J1165; J1815; J7620; J8499